=== PATIENT | male | born 1945 | race Caucasian/White ===

== ENCOUNTER 2017-08-14 04:51 | Inpatient (IN) | payer OTHER ==
[~2017-08-14] VITALS: Ht 182.9 cm; Wt 105.6 kg
[~2017-08-14 04:51] MED LIST: ACET-66 PO; AEC81 PO; ATOR20TA65 PO; DABI150C PO; DUTA.5 PO; GLIP1TAB6 PO; LISI-613 PO; METO25TA6 PO; NITR0.4T SL; OMEP20CA10 PO; TAMS0.4C32 PO
[2017-08-14 05:27] LABS: BASOPHILS % (AUTO) 0.6 % (0.0-5.0); EOSINOPHILS % (AUTO) 1.2 % (0.0-8.0); LYMPHOCYTES % (AUTO) 25.8 % (21.0-51.0); MEAN CORPUSCULAR HEMOGLOBIN 35.2 pg (27.0-33.0); MEAN CORPUSCULAR HGB CONC 36.2 g/dL (32.0-36.0); MEAN CORPUSCULAR VOLUME 97.3 fL (79-99); MONOCYTES % (AUTO) 11.1 % (3.0-13.0); NEUTROPHILS % (AUTO) 61.3 % (40.0-77.0); PLATELET COUNT (AUTO) 182 K/uL (130-400); RED BLOOD CELL COUNT(AUTO) 3.29 MIL/uL (4.50-6.20); RED CELL DISTRIBUTION WIDTH 14.6 % (11.0-15.5); WHITE BLOOD COUNT (AUTO) 6.5 K/uL (4.8-10.8)
[2017-08-14 05:37] LABS: INR 0.91 (0.85-1.15); PARTIAL THROMBOPLASTIN TIME 27.4 SEC (26.3-35.5); PROTHROMBIN TIME 9.6 SEC (9.6-11.6)
[2017-08-14 05:38] LABS: CREATININE 1.4 mg/dL (0.5-1.5); POTASSIUM 4.3 mmol/L (3.5-5.1)
[2017-08-14 05:42] LABS: ALBUMIN 2.8 g/dL (3.5-5.0); BILIRUBIN,TOTAL 0.4 mg/dL (0.2-1.0); TOTAL PROTEIN, SERUM 5.9 g/dL (6.0-8.3)
[2017-08-14 05:49] LABS: B-TYPE NATRIURETIC PEPTIDE 226 pg/mL (0-100)
[2017-08-14] MEDS ORDERED: ONDANSETRON HCL MDV 20ML 2 MG/ML VIAL ONE (06:17)
[2017-08-14] MEDS ORDERED: GLUCAGON 1MG KIT 1 MG ML ONE (06:17)
[2017-08-14] MEDS ORDERED: MAGNESIUM 2GM PREMIX 50ML 50 ML IV ONE (07:10)
[2017-08-14] MEDS ORDERED: DEXTROSE 50%-WATER 50 ML DISP.SYRIN IV PRN (07:15)
[2017-08-14] MEDS ORDERED: GLUCAGON 1MG KIT 1 MG ML IM PRN (07:15)
[2017-08-14] MEDS ORDERED: LIDOCAINE HCL-MPF 1% 2ML VIAL IVP PRN ×2 (07:15)
[2017-08-14] MEDS ORDERED: POTASSIUM CHLORIDE 10% ELIXIR 20 MEQ/15 ML UDCUP PO PRN ×2 (07:15)
[2017-08-14] MEDS ORDERED: POTASSIUM CHLORIDE 20MEQ/100ML 100 ML IV PRN ×2 (07:15)
[2017-08-14] MEDS ORDERED: ONDANSETRON HCL 4 MG/2 ML VIAL IV PRN (07:15)
[2017-08-14] MEDS ORDERED: POTASSIUM CHLORIDE 20 MEQ ERTAB PO PRN (07:15)
[2017-08-14] MEDS ORDERED: APIXABAN 5 MG TABLET PO SCH (10:00)
[2017-08-14 10:46] VITALS: BP 248/108
[2017-08-14] MEDS: AMLODIPINE BESYLATE 5 MG TAB PO SCH (10:57)
[2017-08-14] MEDS: LOSARTAN 100 MG TABLET PO SCH (10:57)
[2017-08-14] MEDS ORDERED: HYDRALAZINE HCL 20 MG/ML VIAL ONE (11:11)
[2017-08-14 11:21] LABS: CREATINE KINASE MB 2.1 ng/mL (0.5-3.6); MAGNESIUM 1.7 mg/dL (1.80-2.40); THYROID STIMULATING HORMONE 0.78 uIU/mL (0.36-3.74); TROPONIN I 0.09 ng/mL (0.00-0.06)
[2017-08-14 11:26] VITALS: BP 149/50
[2017-08-14 11:29] VITALS: BP 133/49
[2017-08-14] MEDS ORDERED: VALS320T16 PO (12:00)
[2017-08-14] MEDS ORDERED: HYDR25TA PO (12:00)
[2017-08-14] MEDS ORDERED: METO50TA18 PO (12:00)
[2017-08-14] MEDS ORDERED: AMLO10TA2 PO (12:00)
[2017-08-14] MEDS ORDERED: APIX5TAB PO (12:00)
[2017-08-14] MEDS: FUROSEMIDE 10 MG/ML 2ML VIAL IV SCH ×2 (12:41→17:44)
[2017-08-14] MEDS: MAGNESIUM 2GM PREMIX 50ML 50 ML IV PRN (12:42)
[2017-08-14] MEDS ORDERED: NITROGLYCERIN 0.4 MG SL TAB SL PRN (14:30)
[2017-08-14 16:34] VITALS: BP 150/56
[2017-08-14] MEDS: FAMOTIDINE/PF 20 MG/2 ML VIAL IV SCH ×2 (17:44→17:52)
[2017-08-14 19:45] VITALS: BP 146/56
[2017-08-14 20:04] LABS: APPEARANCE,URINE Clear (CLEAR); BILIRUBIN,URINE Negative (NEGATIVE); COLOR,URINE Yellow (YELLOW); GLUCOSE, URINE (UA) Negative (NEGATIVE); KETONES,URINE Negative (NEGATIVE); LEUKOCYTE ESTERASE ,URINE Negative (NEGATIVE); NITRATE,URINE Negative (NEGATIVE); OCCULT BLOOD,URINE Negative (NEGATIVE); PH,URINE 5.5 (5.0-8.0); PROTEIN,URINE 300 (NEGATIVE); UROBILINOGEN,URINE 0.2 mg/dL (0.2-1.0)
[2017-08-14 20:38] LABS: AMORPHOUS SEDIMENT,UR Trace /LPF (None Seen); BACTERIA,URINE Rare /HPF (None Seen); FINE GRANULAR CASTS,URINE 0-2 /LPF (None Seen); RBC,URINE None Seen /HPF (0-1); WBC,URINE None Seen /HPF (0-1)
[2017-08-14] MEDS ORDERED: ENOXAPARIN SODIUM 1 MG/KG SQ SCH (21:00)
[2017-08-14] MEDS: TAMSULOSIN HCL 0.4 MG CAP.ER.24H PO SCH (22:52)
[2017-08-14] MEDS: ENOXAPARIN SODIUM 120 MG/0.8ML SQ SCH (22:52)
[2017-08-14] MEDS: ATORVASTATIN CALCIUM 20 MG TABLET PO SCH (22:52)
[2017-08-14 23:39] VITALS: BP 160/64
[2017-08-15 04:00] VITALS: BP 158/46
[2017-08-15 05:05] LABS: HEMATOCRIT 33.5 % (42-54); MEAN CORPUSCULAR HEMOGLOBIN 34.4 pg (27.0-33.0); MEAN CORPUSCULAR HGB CONC 35.1 g/dL (32.0-36.0); MEAN CORPUSCULAR VOLUME 98.1 fL (79-99); NUCLEATED RED BLOOD CELLS 0.1 % (0.0-0.19); PLATELET COUNT (AUTO) 163 K/uL (130-400); RED BLOOD CELL COUNT(AUTO) 3.42 MIL/uL (4.50-6.20); RED CELL DISTRIBUTION WIDTH 14.6 % (11.0-15.5); WHITE BLOOD COUNT (AUTO) 7.6 K/uL (4.8-10.8)
[2017-08-15 05:16] LABS: INR 0.95 (0.85-1.15); PARTIAL THROMBOPLASTIN TIME 34.1 SEC (26.3-35.5)
[2017-08-15 05:30] LABS: CREATININE 1.2 mg/dL (0.5-1.5); MAGNESIUM 1.8 mg/dL (1.80-2.40); POTASSIUM 3.8 mmol/L (3.5-5.1); THYROID STIMULATING HORMONE 0.76 uIU/mL (0.36-3.74)
[2017-08-15] MEDS: MAGNESIUM 2GM PREMIX 50ML 50 ML IV PRN (05:58)
[2017-08-15 08:00] VITALS: BP 145/56
[2017-08-15] MEDS ORDERED: NON-FORMULARY MEDICATION 1 EACH (Valsartan 320 MG) PO SCH (09:00)
[2017-08-15] MEDS ORDERED: NON-FORMULARY MEDICATION 1 EACH (Amlodipine Besylate 10 MG) PO SCH (09:00)
[2017-08-15] MEDS: FUROSEMIDE 10 MG/ML 2ML VIAL IV SCH ×2 (09:47→17:11)
[2017-08-15] MEDS: FAMOTIDINE/PF 20 MG/2 ML VIAL IV SCH ×2 (09:47→20:21)
[2017-08-15] MEDS: ASPIRIN 81 MG EC TAB PO SCH (09:48)
[2017-08-15] MEDS: AMLODIPINE BESYLATE 5 MG TAB PO SCH (09:48)
[2017-08-15] MEDS: HYDROCHLOROTHIAZIDE 25 MG TABLET PO SCH (09:48)
[2017-08-15] MEDS: PANTOPRAZOLE SODIUM 40 MG TABLET.DR PO SCH (09:48)
[2017-08-15] MEDS: LOSARTAN 100 MG TABLET PO SCH (09:48)
[2017-08-15] MEDS: ENOXAPARIN SODIUM 120 MG/0.8ML SQ SCH ×2 (09:49→20:23)
[2017-08-15 11:53] VITALS: BP 173/55
[2017-08-15 15:41] VITALS: BP 192/69
[2017-08-15 19:50] VITALS: BP_SYST 161; BP_SYST 194; BP_DIAS 42; BP_DIAS 70
[2017-08-15] MEDS: ATORVASTATIN CALCIUM 20 MG TABLET PO SCH (20:21)
[2017-08-15] MEDS: TAMSULOSIN HCL 0.4 MG CAP.ER.24H PO SCH (20:21)
[2017-08-15] MEDS: HYDRALAZINE HCL 20 MG/ML VIAL IV PRN (20:21)
[2017-08-15 23:15] VITALS: BP 160/60
[2017-08-16] MEDS: HYDRALAZINE HCL 20 MG/ML VIAL IV PRN ×4 (03:19→20:57)
[2017-08-16 03:59] LABS: HEMATOCRIT 30.4 % (42-54); MEAN CORPUSCULAR HEMOGLOBIN 35.2 pg (27.0-33.0); MEAN CORPUSCULAR VOLUME 97.9 fL (79-99); PLATELET COUNT (AUTO) 161 K/uL (130-400); RED BLOOD CELL COUNT(AUTO) 3.11 MIL/uL (4.50-6.20); RED CELL DISTRIBUTION WIDTH 14.7 % (11.0-15.5); WHITE BLOOD COUNT (AUTO) 7.4 K/uL (4.8-10.8)
[2017-08-16 04:06] VITALS: BP 172/58
[2017-08-16 04:07] LABS: CREATININE 1.4 mg/dL (0.5-1.5); POTASSIUM 3.6 mmol/L (3.5-5.1)
[2017-08-16 07:32] VITALS: BP 151/42
[2017-08-16] MEDS: LOSARTAN 100 MG TABLET PO SCH (10:23)
[2017-08-16] MEDS: ENOXAPARIN SODIUM 120 MG/0.8ML SQ SCH (10:23)
[2017-08-16] MEDS: AMLODIPINE BESYLATE 5 MG TAB PO SCH (10:23)
[2017-08-16] MEDS: PANTOPRAZOLE SODIUM 40 MG TABLET.DR PO SCH (10:23)
[2017-08-16] MEDS: HYDROCHLOROTHIAZIDE 25 MG TABLET PO SCH (10:23)
[2017-08-16] MEDS: ASPIRIN 81 MG EC TAB PO SCH (10:23)
[2017-08-16] MEDS: FUROSEMIDE 10 MG/ML 2ML VIAL IV SCH ×2 (10:24→18:05)
[2017-08-16] MEDS: FAMOTIDINE/PF 20 MG/2 ML VIAL IV SCH ×2 (10:24→20:46)
[2017-08-16 11:18] VITALS: BP 198/85
[2017-08-16] MEDS: POTASSIUM CHLORIDE 20 MEQ ERTAB PO PRN ×2 (11:54→14:47)
[2017-08-16 15:39] VITALS: BP 164/48
[2017-08-16] MEDS ORDERED: GUAIFENESIN-DM 200/20 MG 10 ML PO PRN (19:15)
[2017-08-16 19:28] VITALS: BP 170/57
[2017-08-16] MEDS: TAMSULOSIN HCL 0.4 MG CAP.ER.24H PO SCH (20:46)
[2017-08-16] MEDS: ATORVASTATIN CALCIUM 20 MG TABLET PO SCH (20:46)
[2017-08-16] MEDS ORDERED: LORAZEPAM 2 MG/ML 1 ML VIAL IVP PRN (21:30)
[2017-08-16] MEDS ORDERED: CHLORDIAZEPOXIDE HCL 25 MG CAP PO ONE (22:00)
[2017-08-16 23:30] VITALS: BP 141/38
[2017-08-17] VITALS (11 sets, daily range): BP systolic 126–186; BP diastolic 41–62
[2017-08-17 04:10] LABS: CREATININE 1.4 mg/dL (0.5-1.5); POTASSIUM 3.7 mmol/L (3.5-5.1)
[2017-08-17] MEDS ORDERED: CEFAZOLIN 1GM / D5W 50ML 150 ML ONE (07:22)
[2017-08-17] MEDS ORDERED: ISOVUE-370 50ML VIAL IV ONE (07:22)
[2017-08-17] MEDS ORDERED: LIDOCAINE HCL 1% MDV 50ML VIAL ONE ×2 (07:23→08:37)
[2017-08-17] MEDS ORDERED: BUPIVACAINE/PF 0.25% 30ML VIAL IJ ONE ×4 (07:23→08:37)
[2017-08-17] MEDS ORDERED: MORPHINE SULFATE 4 MG/1ML SYG ONE ×2 (08:05→09:02)
[2017-08-17] MEDS ORDERED: CEFAZOLIN 1GM / D5W 50ML 50 ML ONE (08:37)
[2017-08-17] MEDS ORDERED: ACETAMINOPHEN 325 MG TAB PO PRN (08:45)
[2017-08-17] MEDS: LOSARTAN 100 MG TABLET PO SCH (12:31)
[2017-08-17] MEDS: AMLODIPINE BESYLATE 5 MG TAB PO SCH (12:31)
[2017-08-17] MEDS: HYDROCHLOROTHIAZIDE 25 MG TABLET PO SCH (12:31)
[2017-08-17] MEDS: PANTOPRAZOLE SODIUM 40 MG TABLET.DR PO SCH (12:31)
[2017-08-17] MEDS: FUROSEMIDE 10 MG/ML 2ML VIAL IV SCH ×2 (12:32→17:34)
[2017-08-17] MEDS: ASPIRIN 81 MG EC TAB PO SCH (12:32)
[2017-08-17] MEDS: FAMOTIDINE/PF 20 MG/2 ML VIAL IV SCH ×2 (12:32→21:24)
[2017-08-17] MEDS: CHLORDIAZEPOXIDE HCL 25 MG CAP PO SCH ×2 (14:35→21:24)
[2017-08-17] MEDS: CEFAZOLIN SODIUM 1 GM VIAL IVP SCH ×2 (15:23→22:56)
[2017-08-17] MEDS: POTASSIUM CHLORIDE 20 MEQ ERTAB PO PRN ×2 (15:39→17:33)
[2017-08-17] MEDS ORDERED: CEFAZOLIN 1GM / D5W 50ML 50 ML IV SCH (15:45)
[2017-08-17] MEDS ORDERED: ATORVASTATIN CALCIUM 40 MG TABLET PO SCH (21:00)
[2017-08-17] MEDS: TAMSULOSIN HCL 0.4 MG CAP.ER.24H PO SCH (21:24)
[2017-08-18 04:00] VITALS: BP 148/61
[2017-08-18] MEDS: CHLORDIAZEPOXIDE HCL 25 MG CAP PO SCH (06:10)
[2017-08-18 07:36] VITALS: BP 131/63
[2017-08-18] MEDS: LOSARTAN 100 MG TABLET PO SCH (09:18)
[2017-08-18] MEDS: ASPIRIN 81 MG EC TAB PO SCH (09:18)
[2017-08-18] MEDS: HYDROCHLOROTHIAZIDE 25 MG TABLET PO SCH (09:18)
[2017-08-18] MEDS: PANTOPRAZOLE SODIUM 40 MG TABLET.DR PO SCH (09:18)
[2017-08-18] MEDS: AMLODIPINE BESYLATE 5 MG TAB PO SCH (09:18)
[2017-08-18] MEDS: FUROSEMIDE 10 MG/ML 2ML VIAL IV SCH (09:19)
[2017-08-18 10:49] VITALS: BP 141/61
== END 2017-08-18 13:50 | disposition home or self-care (01) | DRG 242 ==
LOC: EDH 04:51 → OBSVTOIN 06:20 → EDHIP 06:20 → 4CH 09:20 → 2BH 08-15 15:16
PROVIDERS: ADMIT Family Medicine; ATTEND Family Medicine
PROC: 0JH606Z Insertion of Pacemaker, Dual Chamber into Chest Subcutaneous Tissue and Fascia, Open Approach (ICD-10-PCS; principal; 2017-08-17)
PROC: 02H63JZ Insertion of Pacemaker Lead into Right Atrium, Percutaneous Approach (ICD-10-PCS; 2017-08-17)
PROC: 02HK3JZ Insertion of Pacemaker Lead into Right Ventricle, Percutaneous Approach (ICD-10-PCS; 2017-08-17)
DX: I49.5 Sick sinus syndrome (principal); I50.33 Acute on chronic diastolic (congestive) heart failure; I44.2 Atrioventricular block, complete; D68.59 Other primary thrombophilia; E83.42 Hypomagnesemia; E11.9 Type 2 diabetes mellitus without complications; Z95.1 Presence of aortocoronary bypass graft; I48.0 Paroxysmal atrial fibrillation; I25.10 Atherosclerotic heart disease of native coronary artery without angina pectoris; F10.10 Alcohol abuse, uncomplicated; E78.5 Hyperlipidemia, unspecified; I11.0 Hypertensive heart disease with heart failure; E66.9 Obesity, unspecified; Z68.31 Body mass index [BMI] 31.0-31.9, adult; I48.2 Chronic atrial fibrillation; K21.9 Gastro-esophageal reflux disease without esophagitis; N40.0 Benign prostatic hyperplasia without lower urinary tract symptoms; Z79.01 Long term (current) use of anticoagulants; Z79.82 Long term (current) use of aspirin; Z79.899 Other long term (current) drug therapy; Z95.0 Presence of cardiac pacemaker; Z96.641 Presence of right artificial hip joint; Z90.49 Acquired absence of other specified parts of digestive tract
CPT/HCPCS: 36415; 71045; 80053; 81001; 82550; 82553; 83605; 83690; 83735; 83874; 83880; 84443; 84484; 85025; 85378; 85610; 85730; 93005; J0360; J1610; J1650; J1940; J3475; J3490; 33208; 80048; 82948; 84100; 85027; 93306; 99291; A4218; C1779; C1785; J0690; J2270; Q9967

== ENCOUNTER 2017-09-28 13:00 | Inpatient (IN) | payer OTHER ==
[~2017-09-28] VITALS: Ht 180.3 cm; Wt 108.9 kg
[~2017-09-28 13:00] MED LIST changes: +AMLO10TA2 PO; +APIX5TAB PO; -DABI150C PO; -DUTA.5 PO; -GLIP1TAB6 PO; +HYDR25TA PO; -LISI-613 PO; -METO25TA6 PO; +METO50TA18 PO; +VALS320T16 PO
[2017-09-28 13:25] VITALS: BP 146/77
[2017-09-28 13:30] LABS: HEMATOCRIT 35.6 % (42-54); LYMPHOCYTES % (AUTO) 34.2 % (21.0-51.0); MEAN CORPUSCULAR HEMOGLOBIN 34.5 pg (27.0-33.0); MEAN CORPUSCULAR HGB CONC 35.4 g/dL (32.0-36.0); MEAN CORPUSCULAR VOLUME 97.4 fL (79-99); MONOCYTES % (AUTO) 9.8 % (3.0-13.0); PLATELET COUNT (AUTO) 223 K/uL (130-400); RED BLOOD CELL COUNT(AUTO) 3.65 MIL/uL (4.50-6.20); RED CELL DISTRIBUTION WIDTH 15.6 % (11.0-15.5); WHITE BLOOD COUNT (AUTO) 4.9 K/uL (4.8-10.8)
[2017-09-28 13:32] LABS: APPEARANCE,URINE Clear (CLEAR); BILIRUBIN,URINE Negative (NEGATIVE); COLOR,URINE Yellow (YELLOW); GLUCOSE, URINE (UA) Negative (NEGATIVE); KETONES,URINE Negative (NEGATIVE); LEUKOCYTE ESTERASE ,URINE Negative (NEGATIVE); NITRATE,URINE Negative (NEGATIVE); OCCULT BLOOD,URINE Negative (NEGATIVE); PH,URINE 6.5 (5.0-8.0); PROTEIN,URINE 300 (NEGATIVE); UROBILINOGEN,URINE 0.2 mg/dL (0.2-1.0)
[2017-09-28 13:45] LABS: INR 0.9 (0.85-1.15); PARTIAL THROMBOPLASTIN TIME 28.2 SEC (26.3-35.5); PROTHROMBIN TIME 9.5 SEC (9.6-11.6)
[2017-09-28 13:47] LABS: BACTERIA,URINE Rare /HPF (None Seen); SQUAMOUS EPITHELIAL CELL,UR Rare /HPF (0-2); WBC,URINE 0-1 /HPF (0-1)
[2017-09-28 13:52] LABS: CREATININE 1.1 mg/dL (0.5-1.5); POTASSIUM 3.7 mmol/L (3.5-5.1)
[2017-10-01] VITALS (20 sets, daily range): BP systolic 104–151; BP diastolic 45–75
[2017-10-01] MEDS: CEFAZOLIN SODIUM 1 GM VIAL IVP SCH ×3 (05:00→21:01)
[2017-10-01] MEDS ORDERED: SODIUM CHLORIDE 0.9% 1000ML 1,000 ML IV ONE (07:09)
[2017-10-01] MEDS ORDERED: GLUC1CAP PO (07:33)
[2017-10-01] MEDS ORDERED: CHOL200013 PO (07:34)
[2017-10-01] MEDS ORDERED: APIX5TAB PO (07:36)
[2017-10-01] MEDS ORDERED: FERR-82 PO (07:55)
[2017-10-01] MEDS ORDERED: ACETAMINOPHEN EXTRA STRENGTH 500 MG TABLET ONE (08:33)
[2017-10-01] MEDS ORDERED: CELECOXIB 200 MG CAP ONE (08:33)
[2017-10-01] MEDS ORDERED: KETOROLAC TROMETHAMINE 15MG/ML ONE (08:33)
[2017-10-01] MEDS ORDERED: OXYCODONE HCL 10 MG TAB.SR.12H PO ONE (08:34)
[2017-10-01] MEDS ORDERED: CEFAZOLIN SODIUM 1 GM VIAL ONE (08:48)
[2017-10-01] MEDS ORDERED: TRANEXAMIC ACID 1000MG/10ML IV ONE (08:49)
[2017-10-01] MEDS ORDERED: ROPIVACAINE 0.5% 5MG/ML 30ML IJ ONE (09:44)
[2017-10-01] MEDS ORDERED: PROPOFOL 10 MG/ML 20ML VIAL IV ONE (09:45)
[2017-10-01] MEDS ORDERED: FENTANYL CITRATE PF 50 MCG/1 ML 2ML VIAL ONE ×3 (09:45→14:13)
[2017-10-01] MEDS ORDERED: MIDAZOLAM HCL 1 MG/ML 2ML VIAL ONE (09:45)
[2017-10-01] MEDS ORDERED: ROCURONIUM BROMIDE 10MG/1ML 5ML VL ONE ×3 (10:52→13:15)
[2017-10-01] MEDS ORDERED: PHENYLEPHRINE HCL 10 MG/ML 1ML VIAL IV ONE (13:15)
[2017-10-01] MEDS ORDERED: NEOSTIGMINE 5MG/5ML SYR IV ONE (13:15)
[2017-10-01] MEDS ORDERED: GLYCOPYRROLATE 1 MG/5 ML SYRINGE ONE (13:15)
[2017-10-01] MEDS ORDERED: LIDOCAINE PF 2% 5ML ABBOJECT ONE (13:15)
[2017-10-01] MEDS ORDERED: ONDANSETRON HCL 4 MG/2 ML VIAL ONE (13:15)
[2017-10-01] MEDS ORDERED: DiphenhydrAMINE HCL 50 MG/ML VIAL IVP PRN (14:15)
[2017-10-01] MEDS ORDERED: KETOROLAC TROMETHAMINE 15MG/ML IV PRN (14:15)
[2017-10-01] MEDS ORDERED: FERROUS FUMARATE 324 MG TABLET PO PRN (14:15)
[2017-10-01] MEDS ORDERED: ONDANSETRON HCL 4 MG/2 ML VIAL IVP PRN (14:15)
[2017-10-01] MEDS: ACETAMINOPHEN EXTRA STRENGTH 500 MG TABLET PO SCH ×2 (14:15→22:35)
[2017-10-01] MEDS ORDERED: OXYCODONE HCL 5 MG TAB PO PRN ×2 (14:15)
[2017-10-01] MEDS ORDERED: CALCIUM CARBONATE 500 MG TABLET PO PRN (14:15)
[2017-10-01] MEDS ORDERED: TEMAZEPAM 15 MG CAPSULE PO PRN (14:15)
[2017-10-01] MEDS ORDERED: POTASSIUM CHLORIDE 20 MEQ ERTAB PO PRN (14:15)
[2017-10-01] MEDS ORDERED: LIDOCAINE HCL-MPF 1% 2ML VIAL IVP PRN (14:15)
[2017-10-01] MEDS ORDERED: POTASSIUM CHLORIDE 10% ELIXIR 20 MEQ/15 ML UDCUP PO PRN (14:15)
[2017-10-01] MEDS ORDERED: POTASSIUM CHLORIDE 20MEQ/100ML 100 ML IV PRN (14:15)
[2017-10-01] MEDS: SODIUM CHLORIDE 0.9% 1000ML 1,000 ML IV SCH (15:55)
[2017-10-01] MEDS: INSULIN HUMULIN R 100 UNIT/ML 3ML SQ SCH ×2 (16:30→21:00)
[2017-10-01] MEDS ORDERED: CEFAZOLIN 3GM /D5W 100ML 100 ML IV SCH (19:15)
[2017-10-01] MEDS: FAMOTIDINE 20MG TAB 20 MG TAB PO SCH (21:01)
[2017-10-01] MEDS: PREGABALIN 25 MG CAP PO SCH (21:02)
[2017-10-01] MEDS: ATORVASTATIN CALCIUM 20 MG TABLET PO SCH (21:02)
[2017-10-01] MEDS: CELECOXIB 200 MG CAP PO SCH (21:02)
[2017-10-01] MEDS: METOPROLOL TARTRATE 50 MG TAB PO SCH (21:02)
[2017-10-01] MEDS: TAMSULOSIN HCL 0.4 MG CAP.ER.24H PO SCH (21:02)
[2017-10-02] MEDS: SODIUM CHLORIDE 0.9% 1000ML 1,000 ML IV SCH ×2 (00:04→10:01)
[2017-10-02 00:50] VITALS: BP 138/64
[2017-10-02] MEDS: CEFAZOLIN SODIUM 1 GM VIAL IVP SCH (03:10)
[2017-10-02 04:42] VITALS: BP 114/70
[2017-10-02 05:04] LABS: HEMATOCRIT 25.4 % (42-54); MEAN CORPUSCULAR HGB CONC 36.4 g/dL (32.0-36.0); MEAN CORPUSCULAR VOLUME 98.8 fL (79-99); PLATELET COUNT (AUTO) 161 K/uL (130-400); RED BLOOD CELL COUNT(AUTO) 2.57 MIL/uL (4.50-6.20); RED CELL DISTRIBUTION WIDTH 15.3 % (11.0-15.5); WHITE BLOOD COUNT (AUTO) 5.3 K/uL (4.8-10.8)
[2017-10-02 05:17] LABS: CREATININE 1.4 mg/dL (0.5-1.5); POTASSIUM 3.9 mmol/L (3.5-5.1)
[2017-10-02] MEDS: INSULIN HUMULIN R 100 UNIT/ML 3ML SQ SCH ×4 (05:49→21:00)
[2017-10-02] MEDS: ACETAMINOPHEN EXTRA STRENGTH 500 MG TABLET PO SCH ×3 (06:05→22:31)
[2017-10-02 07:35] VITALS: BP 135/59
[2017-10-02] MEDS: Cholecalciferol (Vitamin D3) (Vitamin D3) 2,000 UNIT PO SCH (09:00)
[2017-10-02] MEDS: Valsartan 320 MG PO SCH (09:00)
[2017-10-02] MEDS ORDERED: TAMSULOSIN HCL 0.4 MG CAP.ER.24H PO SCH (09:00)
[2017-10-02] MEDS ORDERED: NON-FORMULARY MEDICATION 1 EACH (Ferrous Sulfate (Iron) 325 MG) PO SCH (09:00)
[2017-10-02] MEDS: FAMOTIDINE 20MG TAB 20 MG TAB PO SCH ×2 (09:40→19:59)
[2017-10-02] MEDS: CELECOXIB 200 MG CAP PO SCH ×2 (09:40→19:58)
[2017-10-02] MEDS: PREGABALIN 25 MG CAP PO SCH ×2 (09:40→19:58)
[2017-10-02] MEDS: ASPIRIN 81 MG EC TAB PO SCH (09:40)
[2017-10-02] MEDS: PANTOPRAZOLE SODIUM 40 MG TABLET.DR PO SCH (09:41)
[2017-10-02] MEDS: HYDROCHLOROTHIAZIDE 25 MG TABLET PO SCH (09:41)
[2017-10-02] MEDS: METOPROLOL TARTRATE 50 MG TAB PO SCH ×2 (09:41→19:58)
[2017-10-02] MEDS: AMLODIPINE BESYLATE 5 MG TAB PO SCH (09:41)
[2017-10-02] MEDS: POLYETHYLENE GLYCOL 3350 17 GM POWD.PACK PO SCH (09:41)
[2017-10-02 11:21] VITALS: BP 125/50
[2017-10-02 16:30] VITALS: BP 135/58
[2017-10-02 19:38] VITALS: BP 138/60
[2017-10-02] MEDS: APIXABAN 5 MG TABLET PO SCH (19:58)
[2017-10-02] MEDS: ATORVASTATIN CALCIUM 20 MG TABLET PO SCH (19:59)
[2017-10-02] MEDS: TAMSULOSIN HCL 0.4 MG CAP.ER.24H PO SCH (20:02)
[2017-10-03] VITALS (7 sets, daily range): BP systolic 118–150; BP diastolic 60–79
[2017-10-03] MEDS: ACETAMINOPHEN EXTRA STRENGTH 500 MG TABLET PO SCH ×2 (05:46→21:31)
[2017-10-03] MEDS: INSULIN HUMULIN R 100 UNIT/ML 3ML SQ SCH ×4 (05:46→21:00)
[2017-10-03] MEDS: APIXABAN 5 MG TABLET PO SCH ×2 (08:47→21:24)
[2017-10-03] MEDS: HYDROCHLOROTHIAZIDE 25 MG TABLET PO SCH (08:47)
[2017-10-03] MEDS: ASPIRIN 81 MG EC TAB PO SCH (08:48)
[2017-10-03] MEDS: PANTOPRAZOLE SODIUM 40 MG TABLET.DR PO SCH (08:48)
[2017-10-03] MEDS: CELECOXIB 200 MG CAP PO SCH ×2 (08:48→21:23)
[2017-10-03] MEDS: PREGABALIN 25 MG CAP PO SCH (08:49)
[2017-10-03] MEDS: METOPROLOL TARTRATE 50 MG TAB PO SCH ×2 (08:49→21:23)
[2017-10-03] MEDS: AMLODIPINE BESYLATE 5 MG TAB PO SCH (08:49)
[2017-10-03] MEDS: FAMOTIDINE 20MG TAB 20 MG TAB PO SCH ×2 (08:49→21:23)
[2017-10-03] MEDS: POLYETHYLENE GLYCOL 3350 17 GM POWD.PACK PO SCH (08:50)
[2017-10-03] MEDS: Cholecalciferol (Vitamin D3) (Vitamin D3) 2,000 UNIT PO SCH (08:50)
[2017-10-03] MEDS: Valsartan 320 MG PO SCH (08:50)
[2017-10-03 13:21] LABS: HEMATOCRIT 25.4 % (42-54)
[2017-10-03] MEDS: TAMSULOSIN HCL 0.4 MG CAP.ER.24H PO SCH (21:23)
[2017-10-03] MEDS: ATORVASTATIN CALCIUM 20 MG TABLET PO SCH (21:24)
[2017-10-04 04:56] VITALS: BP 140/73
[2017-10-04] MEDS: INSULIN HUMULIN R 100 UNIT/ML 3ML SQ SCH ×2 (06:26→11:30)
[2017-10-04] MEDS: ACETAMINOPHEN EXTRA STRENGTH 500 MG TABLET PO SCH ×2 (06:34→15:41)
[2017-10-04 07:29] VITALS: BP 129/52
[2017-10-04] MEDS: Cholecalciferol (Vitamin D3) (Vitamin D3) 2,000 UNIT PO SCH (09:00)
[2017-10-04] MEDS: Valsartan 320 MG PO SCH (09:00)
[2017-10-04] MEDS: APIXABAN 5 MG TABLET PO SCH (09:05)
[2017-10-04] MEDS: METOPROLOL TARTRATE 50 MG TAB PO SCH (09:05)
[2017-10-04] MEDS: AMLODIPINE BESYLATE 5 MG TAB PO SCH (09:05)
[2017-10-04] MEDS: HYDROCHLOROTHIAZIDE 25 MG TABLET PO SCH (09:05)
[2017-10-04] MEDS: PANTOPRAZOLE SODIUM 40 MG TABLET.DR PO SCH (09:05)
[2017-10-04] MEDS: CELECOXIB 200 MG CAP PO SCH (09:06)
[2017-10-04] MEDS: FAMOTIDINE 20MG TAB 20 MG TAB PO SCH (09:06)
[2017-10-04] MEDS: POLYETHYLENE GLYCOL 3350 17 GM POWD.PACK PO SCH (09:06)
[2017-10-04] MEDS: ASPIRIN 81 MG EC TAB PO SCH (09:06)
[2017-10-04 12:10] VITALS: BP 130/58
[2017-10-04] MEDS ORDERED: HYDR-309 PO (13:02)
[2017-10-04] MEDS ORDERED: BISACODYL 10 MG SUPP.RECT RC PRN (14:15)
[2017-10-04 17:05] VITALS: BP 149/65
== END 2017-10-04 17:55 | DRG 470 ==
LOC: EDSTATUS 13:00 → DAHIP 10-01 06:57 → 4AH 10-01 14:14
PROVIDERS: ADMIT Orthopaedic Surgery; ATTEND Orthopaedic Surgery
PROC: 0SRD0JZ Replacement of Left Knee Joint with Synthetic Substitute, Open Approach (ICD-10-PCS; principal; 2017-10-01 11:29)
DX: M17.12 Unilateral primary osteoarthritis, left knee (principal); I10 Essential (primary) hypertension; E11.9 Type 2 diabetes mellitus without complications; E78.5 Hyperlipidemia, unspecified; N40.0 Benign prostatic hyperplasia without lower urinary tract symptoms; I25.10 Atherosclerotic heart disease of native coronary artery without angina pectoris; G89.29 Other chronic pain; Z96.641 Presence of right artificial hip joint; Z95.1 Presence of aortocoronary bypass graft; Z98.41 Cataract extraction status, right eye; Z95.0 Presence of cardiac pacemaker; Z83.3 Family history of diabetes mellitus; Z82.49 Family history of ischemic heart disease and other diseases of the circulatory system; Z82.61 Family history of arthritis; Z80.9 Family history of malignant neoplasm, unspecified
CPT/HCPCS: 36415; 73503; 80048; 81001; 82948; 85014; 85018; 85025; 85027; 85610; 85730; 88304; 88311; 96374; 97039; A4218; A4344; C1776; J0690; J1885; J2001; J2250; J2370; J2405; J2704; J2710; J2795; J3010; J3490; J7030

== ENCOUNTER 2017-12-26 21:30 | Emergency (ER) | payer OTHER ==
[~2017-12-26 21:30] MED LIST changes: -AMLO10TA2 PO; +AMLO10TA6 PO; +CHOL200013 PO; +FERR-82 PO; +GLUC1CAP PO; +HYDR-309 PO; -NITR0.4T SL
[2017-12-26] MEDS ORDERED: OXYMETAZOLINE HCL SPRAY 15 ML BOTTLE ONE (22:45)
[2017-12-26 22:50] LABS: BASOPHILS % (AUTO) 0.6 % (0.0-5.0); EOSINOPHILS % (AUTO) 1.9 % (0.0-8.0); HEMATOCRIT 27.1 % (42-54); LYMPHOCYTES % (AUTO) 20.5 % (21.0-51.0); MEAN CORPUSCULAR HEMOGLOBIN 30.4 pg (27.0-33.0); MEAN CORPUSCULAR HGB CONC 33.3 g/dL (32.0-36.0); MEAN CORPUSCULAR VOLUME 91.4 fL (79-99); MONOCYTES % (AUTO) 9.4 % (3.0-13.0); NEUTROPHILS % (AUTO) 67.6 % (40.0-77.0); PLATELET COUNT (AUTO) 223 K/uL (130-400); RED BLOOD CELL COUNT(AUTO) 2.97 MIL/uL (4.50-6.20); RED CELL DISTRIBUTION WIDTH 18.6 % (11.0-15.5); WHITE BLOOD COUNT (AUTO) 7.6 K/uL (4.8-10.8)
[2017-12-26 22:57] LABS: CREATININE 0.9 mg/dL (0.5-1.5)
[2017-12-26 23:02] LABS: BILIRUBIN,TOTAL 0.3 mg/dL (0.2-1.0); TOTAL PROTEIN, SERUM 6.5 g/dL (6.0-8.3)
[2017-12-26 23:13] LABS: INR 0.91 (0.85-1.15); PROTHROMBIN TIME 9.6 SEC (9.6-11.6)
[2017-12-26 23:52] LABS: B-TYPE NATRIURETIC PEPTIDE 72 pg/mL (0-100)
== END 2017-12-27 00:24 | disposition home or self-care (01) ==
LOC: EDH 21:30
DX: S02.2XXA Fracture of nasal bones, initial encounter for closed fracture (principal); R04.0 Epistaxis; R60.0 Localized edema; I10 Essential (primary) hypertension; E78.5 Hyperlipidemia, unspecified; E11.9 Type 2 diabetes mellitus without complications; I25.810 Atherosclerosis of coronary artery bypass graft(s) without angina pectoris; Z95.1 Presence of aortocoronary bypass graft; W01.0XXA Fall on same level from slipping, tripping and stumbling without subsequent striking against object, initial encounter; Y93.89 Activity, other specified; Y92.89 Other specified places as the place of occurrence of the external cause; Y99.8 Other external cause status
CPT/HCPCS: 36415; 70160; 70450; 71045; 80053; 83880; 85025; 85610; 85730; 93005

== ENCOUNTER 2018-01-09 12:18 | Emergency (ER) | payer OTHER ==
[~2018-01-09 12:18] MED LIST changes: -HYDR-309 PO; +HYDR-4457 PO
[2018-01-09 12:40] LABS: BASOPHILS % (AUTO) 0.9 % (0.0-5.0); EOSINOPHILS % (AUTO) 2.6 % (0.0-8.0); HEMATOCRIT 24.9 % (42-54); LYMPHOCYTES % (AUTO) 24.1 % (21.0-51.0); MEAN CORPUSCULAR HEMOGLOBIN 32.8 pg (27.0-33.0); MEAN CORPUSCULAR HGB CONC 32.9 g/dL (32.0-36.0); MEAN CORPUSCULAR VOLUME 99.9 fL (79-99); NEUTROPHILS % (AUTO) 63.4 % (40.0-77.0); NUCLEATED RED BLOOD CELLS 0.1 % (0.0-0.19); PLATELET COUNT (AUTO) 229 K/uL (130-400); RED BLOOD CELL COUNT(AUTO) 2.49 MIL/uL (4.50-6.20); RED CELL DISTRIBUTION WIDTH 22.4 % (11.0-15.5); WHITE BLOOD COUNT (AUTO) 5.3 K/uL (4.8-10.8)
[2018-01-09 12:47] LABS: CREATININE 1.1 mg/dL (0.5-1.5); POTASSIUM 3.6 mmol/L (3.5-5.1)
[2018-01-09 12:51] LABS: ALBUMIN 3.1 g/dL (3.5-5.0); BILIRUBIN,TOTAL 0.2 mg/dL (0.2-1.0)
[2018-01-09] MEDS ORDERED: ONDANSETRON HCL 4 MG/2 ML VIAL ONE (13:24)
== END 2018-01-09 14:27 | disposition home or self-care (01) ==
LOC: EDH 12:18
DX: R11.2 Nausea with vomiting, unspecified (principal); D64.9 Anemia, unspecified; R60.0 Localized edema; E11.9 Type 2 diabetes mellitus without complications; I10 Essential (primary) hypertension; I25.10 Atherosclerotic heart disease of native coronary artery without angina pectoris; E78.5 Hyperlipidemia, unspecified; Z88.6 Allergy status to analgesic agent; Z95.1 Presence of aortocoronary bypass graft
CPT/HCPCS: 36415; 80053; 84484; 85025; 96374; 99284; J2405

== ENCOUNTER 2019-08-22 18:05 | Emergency (ER) | payer OTHER ==
[~2019-08-22 18:05] MED LIST changes: +AMLO-258 PO; -AMLO10TA6 PO; -OMEP20CA10 PO; +OMEP20CA12 PO
[2019-08-22 18:47] LABS: BASOPHILS % (AUTO) 0.5 % (0.0-5.0); EOSINOPHILS % (AUTO) 0.2 % (0.0-8.0); HEMATOCRIT 35.5 % (42-54); LYMPHOCYTES % (AUTO) 9.5 % (21.0-51.0); MEAN CORPUSCULAR HEMOGLOBIN 34.2 pg (27.0-33.0); MEAN CORPUSCULAR HGB CONC 33.2 g/dL (32.0-36.0); MEAN CORPUSCULAR VOLUME 102.9 fL (79-99); PLATELET COUNT (AUTO) 138 K/uL (130-400); RED BLOOD CELL COUNT(AUTO) 3.45 MIL/uL (4.50-6.20); RED CELL DISTRIBUTION WIDTH 14.6 % (11.0-15.5); WHITE BLOOD COUNT (AUTO) 6.1 K/uL (4.8-10.8)
[2019-08-22 18:57] LABS: CREATININE 1.4 mg/dL (0.5-1.5); POTASSIUM 4.5 mmol/L (3.5-5.1)
[2019-08-22 18:59] LABS: INR 0.9 (0.85-1.15); PARTIAL THROMBOPLASTIN TIME 23.1 SEC (26.3-35.5); PROTHROMBIN TIME 9.8 SEC (9.6-11.6)
[2019-08-22 19:02] LABS: ALBUMIN 3.5 g/dL (3.5-5.0); BILIRUBIN,TOTAL 0.4 mg/dL (0.2-1.0); TOTAL PROTEIN, SERUM 6.7 g/dL (6.0-8.3)
[2019-08-22] MEDS ORDERED: TETANUS/DIPHTHERIA TOXOID [ADULT] 0.5 ML VIAL IM ONE (20:56)
== END 2019-08-22 22:31 | disposition home or self-care (01) ==
LOC: EDH 18:05
DX: S01.21XA Laceration without foreign body of nose, initial encounter (principal); E11.9 Type 2 diabetes mellitus without complications; E78.5 Hyperlipidemia, unspecified; I10 Essential (primary) hypertension; I25.10 Atherosclerotic heart disease of native coronary artery without angina pectoris; Z95.1 Presence of aortocoronary bypass graft; Z88.6 Allergy status to analgesic agent; Z87.891 Personal history of nicotine dependence; W01.0XXA Fall on same level from slipping, tripping and stumbling without subsequent striking against object, initial encounter; Y93.01 Activity, walking, marching and hiking; Y92.89 Other specified places as the place of occurrence of the external cause; Y99.8 Other external cause status
CPT/HCPCS: 36415; 70450; 70486; 71045; 80053; 82550; 84484; 85025; 85610; 85730; 90471; 90714; 93005

== ENCOUNTER 2024-08-25 21:09 | Inpatient (IN) | payer OTHER ==
[~2024-08-25] VITALS: Ht 182.9 cm; Wt 121.3 kg
[~2024-08-25 21:09] MED LIST changes: -ACET-66 PO; +AMLO-257 PO; -AMLO-258 PO; -ATOR20TA65 PO; +ATOR40TA69 PO; +CHOL2000 PO; -CHOL200013 PO; -FERR-82 PO; +FURO40TA5 PO; +Folic Acid/Vitamin B Comp W-C PO; -GLUC1CAP PO; +GLYB2.5T5 PO; -HYDR-4457 PO; +HYDR25 PO; +LOSA100T59 PO; +MAGN400C PO; +METO100T14 PO; -METO50TA18 PO; +MUPI22OI2 TP; +NITR0.4T50 SL; -OMEP20CA12 PO; +POTA-192 PO; +TRAZ-185 PO; -VALS320T16 PO
[2024-08-25 21:42] LABS: BASOPHILS # (AUTO) 0.04 K/uL (0.00-0.20); BASOPHILS % (AUTO) 0.2 % (0.0-5.0); EOSINOPHILS # (AUTO) 0.03 K/uL (0.00-0.70); EOSINOPHILS % (AUTO) 0.2 % (0.0-8.0); HEMATOCRIT 30.6 % (42-54); IMMATURE GRANULOCYTE ABSOLUTE 0.12 K/uL (0-1); LYMPHOCYTES # (AUTO) 2.3 K/uL (1.0-4.8); LYMPHOCYTES % (AUTO) 12.4 % (21.0-51.0); MEAN CORPUSCULAR HEMOGLOBIN 30.6 pg (27.0-33.0); MEAN CORPUSCULAR HGB CONC 33.3 g/dL (32.0-36.0); MEAN CORPUSCULAR VOLUME 91.9 fL (79-99); MONOCYTES # (AUTO) 1.5 K/uL (0.1-1.0); MONOCYTES % (AUTO) 7.7 % (3.0-13.0); NEUTROPHILS # (AUTO) 14.8 K/uL (1.8-7.7); NEUTROPHILS % (AUTO) 78.9 % (40.0-77.0); PLATELET COUNT (AUTO) 220 K/uL (130-400); RED BLOOD CELL COUNT(AUTO) 3.33 MIL/uL (4.50-6.20); WHITE BLOOD COUNT (AUTO) 18.8 K/uL (4.8-10.8)
[2024-08-25 21:46] LABS: RAPID GROUP A STREP negative (NEGATIVE)
[2024-08-25 21:50] LABS: ADD UA MICROSCOPIC YES; APPEARANCE,URINE CLEAR (CLEAR); BILIRUBIN,URINE NEGATIVE (NEGATIVE); COLOR,URINE COLORLESS (YELLOW); GLUCOSE, URINE (UA) 50 mg/dL (NEGATIVE); KETONES,URINE NEGATIVE (NEGATIVE); LEUKOCYTE ESTERASE ,URINE NEGATIVE Leu/uL (NEGATIVE); NITRATE,URINE NEGATIVE (NEGATIVE); PH,URINE 6.5 (5.0-8.0); PROTEIN,URINE 200 mg/dL (NEGATIVE); UROBILINOGEN,URINE 0.2 mg/dL (0.2-1.0)
[2024-08-25 21:52] LABS: INR 0.98 (0.85-1.15); PROTHROMBIN TIME 10.4 SEC (9.6-11.6)
[2024-08-25 21:54] LABS: CREATININE 2.1 mg/dL (0.5-1.3); PARTIAL THROMBOPLASTIN TIME 28.4 SEC (26.3-35.5); POTASSIUM 4.7 mmol/L (3.5-5.1)
[2024-08-25 21:57] LABS: INFLUENZA TYPE A Negative For Type A (NEGATIVE); INFLUENZA TYPE B Negative For Type B (NEGATIVE)
[2024-08-25 22:00] LABS: SARS-CoV-2, RNA, NAAT NEGATIVE SARS CoV-2 (NEGATIVE)
[2024-08-25 22:02] LABS: HYALINE CASTS, URINE 0-1 /LPF (0-1 /LPF); RBC,URINE 0-1 /HPF (0-1); SQUAMOUS EPITHELIAL CELL,UR RARE /HPF (0-2); TRANSITIONAL EPI CELLS,URINE FEW /HPF (None Seen)
[2024-08-25 22:05] LABS: B-TYPE NATRIURETIC PEPTIDE 210 pg/mL (0-100)
[2024-08-25] MEDS: cefTRIAXone 1G VIAL IVPB ONE (22:25)
[2024-08-25] MEDS: [UNRECOGNIZED DRUG - OTHER] IV ONE (22:25)
--- NOTE | 2024-08-25 22:32 | ERN ---
General Chief Complaint: Fever Stated Complaint: FEVER, SHORTNESS OF BREATH Time Seen by MD: 21:11 Source: patient History of Present Illness Initial Comments Patient is an 78-year-old male coming in to be evaluated for fever. Per patient he has had these symptoms since yesterday. Also states he has been having diarrhea and abdominal discomfort. During evaluation triage no fevers present. Allergies: Coded Allergies: tramadol (Unverified Allergy, Unknown, 09/28/17) Home Meds Active Scripts Nitroglycerin (Nitroglycerin) 0.4 Mg Tab.subl, 1 TAB SL AD for chest pain, #25 TAB 1 Refill 1st sign of attack; may repeat every 5 mins; if pain persists after 3 in 15 min, medical attention is recommended Prov:BRIANNA MENDEZ MD 04/14/24 Magnesium Oxide (Magnesium) 400 Mg Magnesium Capsule, 1 CAP PO DAILY for 30 Day s, #30 CAP 1 Refill Prov:BRIANNA MENDEZ MD 04/14/24 Potassium Chloride (K-Dur/Klor-Con) 20 Meq Ertab, 1 TAB PO DAILY for 30 Days, #30 TAB 1 Refill Prov:BRIANNA MENDEZ MD 04/14/24 Glyburide (Glyburide) 2.5 Mg Tablet, 1 TAB PO DAILY for 30 Days, #30 TAB 1 Refill Prov:BRIANNA MENDEZ MD 04/14/24 Hydralazine HCl (Apresoline) 25 Mg Tab, 25 MG PO TID for 30 Days, #90 TAB 1 Refill Prov:BRIANNA MENDEZ MD 04/14/24 Furosemide (Furosemide) 40 Mg Tablet, 1 TAB PO BID for 30 Days, #60 TAB 1 Refill Prov:BRIANNA MENDEZ MD 04/14/24 [Folic Acid/Vitamin B Comp W-C] 1 CAP TAB No Conflict Check, 1 CAP PO DAILY for 30 Days, #30 1 Refill Prov:BRIANNA MENDEZ MD 04/14/24 Reported Medications Mupirocin (Mupirocin Ointment) 2 % Oint, 1 APPL TP TID for 5 Days, #15 GM 0 Refills apply to affected area(s) 04/10/24 Metoprolol Tartrate (Metoprolol Tartrate) 100 Mg Tablet, 1 TAB PO BID for 30 Days, #60 TAB 0 Refills 04/10/24 Cholecalciferol (Vitamin D3) (Vitamin D3) 50 Mcg (2000 Unit) Capsule, 1 CAP PO DAILY for 30 Days, #30 CAP 0 Refills 04/10/24 Amlodipine Besylate (Amlodipine Besylate) 5 Mg Tablet, 1 TAB PO DAILY for 30 Days, #30 TAB 0 Refills 04/10/24 Trazodone HCl (Trazodone HCl) 50 Mg Tablet, 50 MG PO HS, TAB 03/10/24 Atorvastatin Calcium (LIPITOR) 40 Mg Tablet, 40 MG PO AM, TAB 03/10/24 Losartan Potassium (Losartan Potassium) 100 Mg Tablet, 100 MG PO AM, TAB 03/10/24 Apixaban (Eliquis) 5 Mg Tablet, 5 MG PO BID, TAB 08/14/17 Hydrochlorothiazide (Hydrochlorothiazide) 25 Mg Tablet, 25 MG PO DAILY, TAB 08/14/17 Aspirin (ASPIRIN 81 MG ECTAB) 81 Mg Ectab, 81 MG PO DAILY, TAB.EC 01/27/15 Tamsulosin HCl (Tamsulosin HCl) 0.4 Mg Cap.er.24h, 0.4 MG PO PM, CAPSULE. 12/02/14 Past Medical History Past Medical History: CHF, Diabetes-Type II, High Cholesterol, Hypertension Past Surgical History: Pacer/AICD ROS Dictation CONSTITUTIONAL: No chills, fever, weakness, no diaphoresis, no malaise. HEAD/FACE: No signs of trauma. EENT: No eye pain, no blurred vision, no tearing, no double vision, no ear pain, no ear discharge, no nose pain, no nasal congestion, no throat pain, no throat swelling, no mouth pain. RESPIRATORY: No cough, no orthopnea, no SOB, no stridor, no wheezing. CARDIOVASCULAR: No chest pain, no edema, no palpitations, no syncope. GASTROINTESTINAL/ABDOMINAL: No abdominal pain, no constipation, no diarrhea, no nausea, no vomiting. GENITOURINARY: No abnormal discharge, no dysuria, no frequent urination, no hematuria. No complaints of pain in the genitals. MUSCULOSKELETAL: No back pain, no gout, no joint pain, no joint swelling, no muscle pain, no muscle stiffness, no neck pain. INTEGUMENTARY: No change in color, no change in hair/nails, no dryness, no lesion, no lumps, no rash. NEUROLOGICAL/PSYCH: No anxiety, not depressed, no emotional problem, no headache, no numbness, no pre-existing deficit, no history of seizures, no tremors, no weakness. HEMATOLOGIC/LYMPHATIC: Not anemic, no history of blood clots, no apparent bleeding, no bruising, glands not swollen. All Systems Negative, Except as Noted. Physical Exam Physical Exam Dictation VITAL SIGNS: Reviewed. GENERAL APPEARANCE: Alert, oriented x3, no acute distress, obese. HEAD AND FACE: Non-traumatic. EYES: PERRL, pink conjunctivas, eyelid no trauma, anterior chamber clear. EARS: Pinnas intact and no signs of trauma or erythema. Ear canals clear and no discharge. TMs no erythema. NOSE: No discharge, no bleeding. OROPHARYNX: Mouth normal, teeth no caries, tongue pink. Pharynx clear, no erythema. Tonsils no exudates, no abscesses noted. Mucous membrane moist. NECK: Supple, non-tender, no thyromegaly, no masses, no JVD, no bruits. BREAST: Deferred. CHEST: No tenderness, no crepitus, no paradoxical movement, no retractions. LUNGS: Clear, well-ventilated, symmetric, no rales, no wheezing, no rhonchi, no stridor, good breath sounds bilaterally. HEART: Regular rate, regular rhythm, no murmur, no gallops. VASCULAR: No peripheral edema. ABDOMEN: Soft, positive bowel sounds, nondistended, no guarding, nontender, no rebound, no masses no hepatomegaly, no splenomegaly, no Chaudhry's sign, no hernias. RECTAL: Deferred. GENITAL: Deferred. NEUROLOGICAL: Normal speech, gross motor function intact, gross sensory function intact. MUSCULOSKELETAL: Neck nontender, full range of motion, back nontender, full range of motion. EXTREMITIES: Nontender, full range of motion. SKIN: Color pink, dry, no turgor, no rash, no lacerations, no abrasions, no contusions. LYMPHATICS: Deferred. Results Laboratory and Microbiology Lab and Micro Result Laboratory Tests Test 08/25/24 21:25 08/25/24 21:30 08/25/24 21:43 Influenza Type A Antigen Negative For Type A Influenza Type B Antigen Negative For Type B SARS-CoV-2, RNA, NAAT NEGATIVE SARS CoV-2 Group A Streptococcus Rapid negative (NEGATIVE) White Blood Count 18.8 K/uL (4.8-10.8) H Red Blood Count 3.33 MIL/uL (4.50-6.20) L Hemoglobin 10.2 g/dL (14.0-18.0) L Hematocrit 30.6 % (42-54) L Mean Corpuscular Volume 91.9 fL (79-99) Mean Corpuscular Hemoglobin 30.6 pg (27.0-33.0) Mean Corpuscular Hemoglobin Concent 33.3 g/dL (32.0-36.0) Red Cell Distribution Width 14.0 % (11.0-15.5) Platelet Count 220 K/uL (130-400) Mean Platelet Volume 9.7 fL (7.5-10.5) Immature Granulocyte % (Auto) 0.6 % (0-1) Neutrophils (%) (Auto) 78.9 % (40.0-77.0) H Lymphocytes (%) (Auto) 12.4 % (21.0-51.0) L Monocytes (%) (Auto) 7.7 % (3.0-13.0) Eosinophils (%) (Auto) 0.2 % (0.0-8.0) Basophils (%) (Auto) 0.2 % (0.0-5.0) Neutrophils # (Auto) 14.8 K/uL (1.8-7.7) H Lymphocytes # (Auto) 2.3 K/uL (1.0-4.8) Monocytes # (Auto) 1.5 K/uL (0.1-1.0) H Eosinophils # (Auto) 0.03 K/uL (0.00-0.70) Basophils # (Auto) 0.04 K/uL (0.00-0.20) Absolute Immature Granulocyte (auto 0.12 K/uL (0-1) Nucleated Red Blood Cells 0.0 % (0.0-0.19) Prothrombin Time 10.4 SEC (9.6-11.6) Prothromb Time International Ratio 0.98 (0.85-1.15) Activated Partial Thromboplast Time 28.4 SEC (26.3-35.5) Sodium Level 135 mmol/L (136-145) L Potassium Level 4.7 mmol/L (3.5-5.1) Chloride Level 100 mmol/L (101-111) L Carbon Dioxide Level 26 mmol/L (21-32) Blood Urea Nitrogen 52 mg/dL (7-18) H Creatinine 2.1 mg/dL (0.5-1.3) H Glomerular Filtration Rate Calc 31 mL/min (>90) Random Glucose 162 mg/dL (70-105) H Lactic Acid Level 1.6 mmol/L (0.8-2.5) Total Calcium 8.9 mg/dL (8.5-10.1) Total Creatine Kinase 187 U/L (21-232) # Troponin I High Sensitivity 69 ng/L (4-75) B-Type Natriuretic Peptide 210 pg/mL (0-100) H Urine Color COLORLESS (YELLOW) Urine Appearance CLEAR (CLEAR) Urine pH 6.5 (5.0-8.0) Urine Specific [place] 1.007 (1.001-1.031) Urine Protein 200 mg/dL (NEGATIVE) H Urine Glucose (UA) 50 mg/dL (NEGATIVE) H Urine Ketones NEGATIVE mg/dL (NEGATIVE) Urine Occult Blood +- (TRACE) (NEGATIVE) H Urine Nitrate NEGATIVE (NEGATIVE) Urine Bilirubin NEGATIVE mg/dL (NEGATIVE) Urine Urobilinogen 0.2 mg/dL (0.2-1.0) Urine Leukocyte Esterase NEGATIVE Coby/uL Urine RBC 0-1 /HPF (0-1) Urine WBC 2-5 /HPF (0-1) H Urine Squamous Epithelial Cells RARE /HPF (0-2) Urine Transitional Epithelial Cells FEW /HPF (None Seen) Urine Bacteria None /HPF (None Seen) Urine Hyaline Casts 0-1 /LPF (0-1 /LPF) Labs Reviewed?: Yes EKG/XRAY/US/CT/MRI CT Scan Comment CT ABDOMEN AND PELVIS WITHOUT CONTRAST LIVER AND SPLEEN PANCREAS AND ADRENAL GLANDS ARE NORMAL, THE KIDNEY DEMONSTRATED NONSPECIFIC BILATERAL PERINEPHRIC STRANDING WITHOUT HYDRONEPHROSIS, THE FINDINGS ARE ENTIRELY NONSPECIFIC HOWEVER PYELONEPHRITIS IN THE EXCLUDED, CORRELATION WITH THE [facility] RECOMMENDED, WHAT APPEARS TO BE NONOBSTRUCTING RENAL PELVIS CALCULUS IN THE RIGHT MEASURES 7 X 4 MM, THE SMALL AND LARGE BOWELS ARE NORMAL, NO EVIDENCE OF APPENDICITIS, URINARY BLADDER IS NORMAL HELPED WITH THE BASE IN THE WELL VISUALIZED SECONDARY TO STREAK ARTIFACT FROM THE BILATERAL TOTAL HIP REPLACEMENT. MDM MDM: Differential diagnosis: Fever, sepsis Rationale: Tests considered and ordered secondary to shared decision making include: labs, ECG and radiology Previous outside records reviewed: Old ER visits. Risk of complication and/or morbidity or mortality of patient management: None Medications-Per medication reconciliation Need for hospitalization: Patient does meet criteria for hospitalization. Need for emergency major/minor surgery: No There are no social concerns with this patient. Prescription drug management Prescriptions will include symptomatic care Patient's prior external medical records from other ER visits were reviewed by me as indicated. Prior testing and results from previous visits were reviewed. Prior tests were taken into account with medical decision making and resource utilization, independent historian/historians were used to obtain complete medical history. I independently interpreted the test that were performed, results were reviewed by me and considered findings on radiology if ordered. Medical management and examination interpretation discussions were had by me with other qualified healthcare professionals as indicated for the patient's care. PATIENT WILL BE ADMITTED UNDER THE CARE OF HOSPITALIST GROUP FOR ONGOING MANAGEMENT OF SEPSIS POSSIBLE PYELONEPHRITIS. ED Course Orders Procedure Category Date Status Time Cbc With Differential LAB 08/25/24 Complete 21:13 Prothrombin Time With LAB 08/25/24 Complete INR 21:13 Partial LAB 08/25/24 Complete Thromboplastin Time 21:13 Blood Cult MILAD 08/25/24 In Process 21:13 Urinalysis Profile LAB 08/25/24 Complete 21:13 Culture Urine [place] 08/25/24 In Process 21:13 Creatine Kinase, Total LAB 08/25/24 Complete 21:13 Troponin I High LAB 08/25/24 Complete Sensitivity 21:13 B-Type Natriuretic LAB 08/25/24 Complete Peptide 21:13 Lactic Acid LAB 08/25/24 Complete 21:13 Basic Metabolic Panel LAB 08/25/24 Complete 21:13 Covid Rna Naat LAB 08/25/24 Complete 21:13 Influenza Type A & B, LAB 08/25/24 Complete Rapid 21:13 Rapid (Group A Strep) LAB 08/25/24 Complete 21:13 0.9%Nacl 1000ml (Ns PHA 08/25/24 In Process 1000ml) 22:00 Ceftriaxone 1g Vial PHA 08/25/24 In Process (Rocephine 1g Inj) 22:00 Chest 1vw RAD 08/25/24 Taken 21:59 Ct Abdomen/Pelvis W/O CT 08/25/24 Taken Contrast 22:30 Labetalol 20mg Syg PHA 08/26/24 Transmitted (Trandate 20mg Syg) 01:00 Current Medications Medications (Trade) Dose Ordered Sig/Abhijit Route PRN Reason Start Time Stop Time Status Last Admin Dose Admin Ceftriaxone Sodium (ROCEphine 1G INJ) 1 gm ONCE ONCE IVPB 08/25/24 22:00 08/25/24 22:02 DC 08/25/24 22:25 Sodium Chloride 3,810 ml @ 1,270 mls/hr ONCE ONCE IV 08/25/24 22:00 08/26/24 00:59 08/25/24 22:25 Vital Signs Date Time Temp Pulse Resp B/P (MAP) Pulse Ox O2 Delivery O2 Flow Rate FiO2 08/25/24 21:30 99.5 73 16 176/62 97 Room Air* 0 21 08/25/24 21:11 100.0 80 20 180/85 96 Nasal Cannula 1.0 Critical Care Note Comments CRITICAL CARE PROCEDURE NOTE AUTHORIZED AND PERFORMED BY: ME TOTAL CRITICAL CARE TIME: APPROXIMATELY 36 MINUTES DUE TO A HIGH PROBABILITY OF CLINICALLY SIGNIFICANT, LIFE THREATENING DETERIORATION, THE PATIENT REQUIRED MY HIGHEST LEVEL OF PREPAREDNESS TO INTERVE NE EMERGENTLY AND I PERSONALLY SPENT THIS CRITICAL CARE TIME DIRECTLY AND PERSONALLY MANAGING THE PATIENT. THIS CRITICAL CARE TIME INCLUDED OBTAINING A HISTORY; EXAMINING THE PATIENT; PULSE OXIMETRY; ORDERING AND REVIEW OF STUDIES; ARRANGING URGENT TREATMENT WITH DEVELOPMENT OF A MANAGEMENT PLAN; EVALUATION OF PATIENT'S RESPONSE TO TREATMENT; FREQUENT REASSESSMENT; AND, DISCUSSIONS WITH OTHER PROVIDERS. THIS CRITICAL CARE TIME WAS PERFORMED TO ASSESS AND MANAGE THE HIGH PROBABILITY OF IMMINENT, LIFE-THREATENING DETERIORATION THAT COULD RESULT IN MULTI-ORGAN FAILURE. IT WAS EXCLUSIVE OF SEPARATELY BILLABLE PROCEDURES AND TREATING OTHER PATIENTS AND TEACHING TIME. PLEASE SEE MDM SECTION AND THE REST OF THE NOTE FOR FURTHER INFORMATION ON PATIENT ASSESSMENT AND TREATMENT. DX & DISP Disposition: Inpatient Decision to Admit Time: 00:46 Departure Impression: Primary Impression: Sepsis Additional Impressions: Gastroenteritis, Pyelonephritis, Kidney stone Condition: Stable Referrals: JOSE LUIS RIDER (PCP) EFRAIN DAVIS MD August 25, 2024 22:32
[2024-08-26] VITALS (11 sets, daily range): PULSE 67–98; RESP 20–28; O2SAT 97–98
--- NOTE | 2024-08-26 00:39 | NUR ---
HOME MEDICATIONS NOT AT BEDSIDE. PT INFORMED TO HAVE HOME MEDS BROUGHT TOMORROW BY FAMILY.
[2024-08-26] MEDS: LAbetaLOL 20MG SYG IV ONE (00:50)
--- NOTE | 2024-08-26 00:58 | NUR ---
ADMITTING CREDIT SUPPORT COUNSELOR AT BEDSIDE
[2024-08-26] MEDS: IpraTROPium/alBUTERol SULFATE 3 ML SOLUTION IH ONE (01:17)
--- NOTE | 2024-08-26 01:34 | HP ---
[facility]ORY [facility] PHYS[facility] Date of Service: August 26, 2024 Time of Service: 01:10 PCP: Dmitriy Guan HISTORY OF PRESENT ILLNESS: This is an 78-year-old male with past medical history of CHF, type 2 diabetes, hypertension, hyperlipidemia, CKD stage 3, atrial fibrillation on chronic anticoagulation with Eliquis, anemia, morbid obesity, BPH and coronary artery disease with CABG x3,PPM/AICD was brought by EMS to the ED for complaints of fever, diarrhea and abdominal pain which started yesterday.Patient states he has a non bloody diarrhea x 3 episodes to day.Patient also reports he has involuntary tremors to right hand and states he has a Parkinson,s disease. Upon ER arrival patient's vital signs temperature a 100, heart rate 80, blood pressure 180/85 saturation 96% on 1 L. Seen and examined patient in the ER awake,alert and coherent ,appears comfortable.Patient denies chest pain,palpitation,cough and shortness of breath. Latest vital signs temperature 98.4, heart rate 80, blood pressure 175/70 saturation 95% on room air. Labs: WBC 18.8, neutrophils 78, hemoglobin 10, hematocrit 30 platelet count 220. Sodium 135, chloride 100, BUN 52, creatinine 2.1, GFR 31, glucose 162 lactic acid 1.6 troponin 69 BNP 210. Urinalysis remarkable for protein, glucose and trace urine occult blood and urine WBC 2-5. Influenza type a and B negative SARs COVID negative strep rapid negative. Chest x-ray and CT abdomen and pelvis official result still pending at this time. Preliminary result on CT abdomen and pelvis without contrast result revealed nonobstructing renal pelvic calculus on the right measures 7 x 4 mm the small and large bowel are normal. No evidence for appendicitis the urinary bladder is normal although the base is not well visualized secondary to streak artifact with from bilateral total hip replacements. While in the ER patient received albuterol, labetalol 10 mg IV, Rocephin 1 g IV and fluid resuscitation of NS 30 mL/kilogram over 3 hours. We will admit patient for further medical management. REVIEW OF SYSTEMS CONSTITUTIONAL: Denies fevers, chills, or night sweats. No unintentional weight loss reported. NEUROLOGICAL: Denies headache, amaurosis fugax, motor weakness, sensory deficit, vertigo/spinning sensation, gait abnormalities, or tremors. ENT: No hearing loss, otalgia, otorrhea, rhinitis, rhinorrhea, hoarseness, or sore throat. CARDIOVASCULAR: Denies any exertional angina, dyspnea on exertion, orthopnea, paroxysmal nocturnal dyspnea, palpitations, life-threatening arrhythmias, claudication. PULMONARY: Denies any shortness of breath, cough, phlegm/sputum, hemoptysis, pleuritic chest pain. SLEEP: Denies morning headaches, daytime somnolence or napping. Denies difficulty falling asleep, staying asleep, waking from sleep. Denies knowledge of snoring. GASTROINTESTINAL: Complaints of diarrhea and abdominal pain Denies any type of dysphagia to either liquids or solids. Denies nausea, vomiting, pyrosis, early satiety, constipation, or changes in stool consistency or caliber. Denies coffee-ground emesis, hematemesis, hematochezia, or melanotic stools. GENITOURINARY: Denies frequency, urgency, nocturia, hematuria or incontinence (Storage/Irritative symptoms.) Low urinary stream, straining to void, urinary intermittency or hesitancy, splitting of the voiding stream, terminal dribbling. ENDOCRINOLOGIC: Denies polyuria, polydipsia, polyphagia or heat/cold intolerances. HEMATOLOGIC: Denies thrombophilia/previous clots, or coagulopathy/bleeding disorders. ONCOLOGIC: Denies personal history of malignancy. DERMATOLOGIC: Denies rashes or pruritus. PSYCHIATRIC: Denies any suicidal or homicidal ideation. Denies hallucinations. PAST MEDICAL HISTORY: [CHF, type 2 diabetes, hypertension, hyperlipidemia, CKD stage 3, atrial fibrillation on chronic anticoagulation with Eliquis, anemia, morbid obesity, BPH and coronary artery disease with ] PAST SURGICAL HISTORY: [ CABG x3, ppm/AICD and bilateral hip replacement] PAST SOCIAL HISTORY: [ Patient lives alone. Patient denies alcohol tobacco and recreational drug use ] FAMILY HISTORY: [Cancer ] Coded Allergies: tramadol (Unverified Allergy, Unknown, 09/28/17) PHYSICAL EXAM GENERAL APPEARANCE: The patient is awake, alert, and oriented, in no acute cardiopulmonary distress. NEUROLOGICAL: Cranial nerves II-XII grossly intact. Motor is 5/5 in bilateral upper and lower extremities proximal to distal. No sensory deficits. HEENT: Face is symmetric. Pupils are equal and reactive. Extraocular movements are intact. NECK: Supple. No JVD. No thyromegaly. No submental, submandibular, pre- /postauricular, occipital or supraclavicular lymphadenopathy. CHEST: Normal chest expansion. No Telemetry. LUNGS: Scattered expiratory wheezing on bilateral lung [place] per auscultation Absence of any rales and rhonchi CARDIOVASCULAR: Regular. S1 and S2 normal. No appreciable rubs, murmurs or gallops. ABDOMEN: Abdomen is round firm and distended .There is no rebound, voluntary guarding, or rigidity. : Deferred. No Griffin. EXTREMITIES: Traces of edema to bilateral lower extremities. No clubbing. Good capillary refill. SKIN: No skin breakdown. Vital Sign (Last 24 Hours) 08/26/24 08/26/24 00:30 00:50 Temp 98.4 Pulse 80 Resp 21 B/P (MAP) 175/80 Pulse Ox 95 O2 Delivery Room Air* O2 Flow Rate 0 FiO2 21 LABS: Laboratory: Test 08/25/24 21:43 08/25/24 21:30 08/25/24 21:25 Range/Units Urine Color COLORLESS YELLOW Urine Appearance CLEAR CLEAR Urine pH 6.5 5.0-8.[address] [place] 1.007 1.001-1.031 Urine Protein 200 H NEGATIVE mg/dL Urine Glucose (UA) 50 H NEGATIVE mg/dL Urine Ketones NEGATIVE NEGATIVE mg/dL Urine Occult Blood +- (TRACE) H NEGATIVE Urine Nitrate NEGATIVE NEGATIVE Urine Bilirubin NEGATIVE NEGATIVE mg/dL Urine Urobilinogen 0.2 0.2-1.0 mg/dL Urine Leukocyte Esterase NEGATIVE NEGATIVE Coby/uL Urine RBC 0-1 0-1 /HPF Urine WBC 2-5 H 0-1 /HPF Urine Squamous Epithelial Cells RARE 0-2 /HPF Urine Transitional Epithelial Cells FEW None Seen /HPF Urine Bacteria None None Seen /HPF Urine Hyaline Casts 0-1 0-1 /LPF /LPF White Blood Count 18.8 H 4.8-10.8 K/uL Red Blood Count 3.33 L 4.50-6.20 MIL/uL Hemoglobin 10.2 L 14.0-18.0 g/dL Hematocrit 30.6 L 42-54 % Mean Corpuscular Volume 91.9 79-99 fL Mean Corpuscular Hemoglobin 30.6 27.0-33.0 pg Mean Corpuscular Hemoglobin Concent 33.3 32.0-36.0 g/dL Red Cell Distribution Width 14.0 11.0-15.5 % Platelet Count 220 130-400 K/uL Mean Platelet Volume 9.7 7.5-10.5 fL Immature Granulocyte % (Auto) 0.6 0-1 % Neutrophils (%) (Auto) 78.9 H 40.0-77.0 % Lymphocytes (%) (Auto) 12.4 L 21.0-51.0 % Monocytes (%) (Auto) 7.7 3.0-13.0 % Eosinophils (%) (Auto) 0.2 0.0-8.0 % Basophils (%) (Auto) 0.2 0.0-5.0 % Neutrophils # (Auto) 14.8 H 1.8-7.7 K/uL Lymphocytes # (Auto) 2.3 1.0-4.8 K/uL Monocytes # (Auto) 1.5 H 0.1-1.0 K/uL Eosinophils # (Auto) 0.03 0.00-0.70 K/uL Basophils # (Auto) 0.04 0.00-0.20 K/uL Absolute Immature Granulocyte (auto 0.12 0-1 K/uL Nucleated Red Blood Cells 0.0 0.0-0.19 % Prothrombin Time 10.4 9.6-11.6 SEC Prothromb Time International Ratio 0.98 0.85-1.15 Activated Partial Thromboplast Time 28.4 26.3-35.5 SEC Sodium Level 135 L 136-145 mmol/L Potassium Level 4.7 3.5-5.1 mmol/L Chloride Level 100 L 101-111 mmol/L Carbon Dioxide Level 26 21-32 mmol/L Blood Urea Nitrogen 52 H 7-18 mg/dL Creatinine 2.1 H 0.5-1.3 mg/dL Glomerular Filtration Rate Calc 31 >90 mL/min Random Glucose 162 H 70-105 mg/dL Lactic Acid Level 1.6 0.8-2.5 mmol/L Total Calcium 8.9 8.5-10.1 mg/dL Total Creatine Kinase 187 # 21-232 U/L Troponin I High Sensitivity 69 4-75 ng/L B-Type Natriuretic Peptide 210 H 0-100 pg/mL Influenza Type A Antigen Negative For Type A NEGATIVE Influenza Type B Antigen Negative For Type B NEGATIVE SARS-CoV-2, RNA, NAAT NEGATIVE SARS CoV-2 NEGATIVE Group A Streptococcus Rapid negative NEGATIVE DIAGNOSTICS / RADIOLOGY: [ ] ASSESSMENT: Sepsis POA Possible pyelonephritis POA Acute kidney injury POA Kidney stone POA Hypertensive urgency POA Acute normocytic normochromic anemia POA Acute leukocytosis POA CHF POA Debility POA Diabetes POA Hyponatremia POA Dehydration POA Hyperlipidemia POA 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 Atrial fibrillation on chronic anticoagulation POA Sacral ulcer POA PLAN: We will admit patient in medical telemetry Upgrade to ICU due to patient needs on Cardene drip We will start on clear liquid diet advanced as tolerated Patient received IV fluid resuscitation of NS 30 mL/kilogram over 3 hours We will continue Rocephin 1 g IV b.i.d. for empiric coverage We will replace electrolytes as needed per protocol We will start on insulin sliding scale AC & HS with hypoglycemia protocol We will add prn medication for fever,pain,cough , nausea and vomiting Daily weight and strict I&O Follow-up chest x-ray and CT abdomen and pelvis result We will reconcile home meds once medlist available We will seek critical caqre consultation We will seek wound care and management eval We will request labs in am Further orders to follow depending on above results Case discussed with attending physician and came up with above treatment and plan of care. ADVANCED CARE PLANNING 1. Which of the following were discussed? Hospice Care - No Therapeutic options - Yes Advance Directives - No Other discussions - 2. Discussed with who? Patient 3. Voluntary nature of this service was explained to the patient? Yes 4. Amount of time spent - _25 5. Reviewed by Physician? (if this service was performed by NPP) Yes ADDENDUM: ATTENDING PHYSICIAN ATTESTATION: I have reviewed the midlevel's plan. I have independently seen, reviewed the chart and made my own assessment of the patient. See my addendum for updates to the midlevel's medical plan MD JANKI Escobar [facility] August 26, 2024 01:33 AYDEE CARRANZA MD August 26, 2024 13:20
[2024-08-26] MEDS: hydrALAZine 20MG/ML VIAL IV PRN (01:57)
[2024-08-26] MEDS ORDERED: PoTASSium chloRIDE 20MEQ ER 20 MEQ ERTAB PO PRN (02:00)
[2024-08-26] MEDS ORDERED: GLUCAGON 1MG KIT 1 MG ML IM PRN (02:00)
[2024-08-26] MEDS ORDERED: ondanSETRON 4MG INJ IV PRN (02:00)
[2024-08-26] MEDS ORDERED: PoTASSium chloRIDE 10MEQ/100ML 100 ML IV PRN (02:00)
[2024-08-26] MEDS: IpraTROPium/alBUTERol SULFATE 3 ML SOLUTION IH SCH (02:30)
--- NOTE | 2024-08-26 02:30 | NUR ---
LUCY SHEARER MADE AWARE OF CONTINUED HYPERTENSION AFTER 2 PRN ANTIHYPERTENSIVES. ORDERS RECEIVED TO START CARDENE DRIP AND UPGRADE TO ICU. LAZARO FALCONCHROMIUM PLATER MADE AWARE.
--- NOTE | 2024-08-26 02:41 | NUR ---
CLINTON TONGUE PRESSER WITH CRITICAL CARE CONSULTED AT THIS TIME.
[2024-08-26] MEDS: niCARDIpine 25MG INJ 25 MG in 0.9% NACL 250ML 240 ML IV PRN (02:55)
[2024-08-26] MEDS ORDERED: NICARDIPINE IV PRN (03:00)
[2024-08-26] MEDS ORDERED: NACL 0.9% IV PRN (03:00)
[2024-08-26] MEDS: morPHINE 2 MG SYG IV PRN (06:37)
--- NOTE | 2024-08-26 06:37 | EKG ---
[facility] Test Date: 2024-08-26 Test Time: 03:32:08 Pat Name: JEANINE VILLALTA Department: [facility]HIP Room: ED 09 Gender: M [employer] [place]: [id number] : 1945 Requested By: EVARISTO BETANCUR Order Number: [id number] Reading MD: Wilfred Desai Measurements Intervals [place] Rate: 97 P: 92 AR: 154 QRS: -80 QRSD: 214 T: 97 QT: 457 QTc: 599 Interpretive Statements Ventricular-paced complexes Compared to ECG 04/09/2024 15:36:58 Atrial fibrillation no longer present Left bundle-branch block no longer present Intraventricular conduction delay no longer present ST (T wave) deviation no longer present Electronically Signed On 08-26-2024 17:33:19 CDT by Wilfred Desai Please click the below link to view image of tracing.
--- NOTE | 2024-08-26 06:55 | NUR ---
REPORT RECEIVED FROM YONIS ABARCA
--- NOTE | 2024-08-26 07:15 | NUR ---
[employer] CONSULTANT AT BEDSIDE W/PT CURRENTLY. NO ACUTE DISTRESS NOTED BUT WHEN PT DOES COUGH, HE HAS AN AUDIBLE COUGH W/RALES. PT STATES HE DRINKS "ALOT" OF WATER. I DID INFORM HIM THAT WITH HIS DX OF CONGESTIVE HEART FAILURE, HE NEEDS TO BE MINDFUL ON DRINKING TOO MUCH WATER D/T IT MAY CAUSE FURTHER BREATHING COMPLICATIONS.
[2024-08-26 07:29] LABS: BASOPHILS # (AUTO) 0.04 K/uL (0.00-0.20); BASOPHILS % (AUTO) 0.3 % (0.0-5.0); EOSINOPHILS # (AUTO) 0.02 K/uL (0.00-0.70); EOSINOPHILS % (AUTO) 0.1 % (0.0-8.0); HEMATOCRIT 27.4 % (42-54); IMMATURE GRANULOCYTE ABSOLUTE 0.06 K/uL (0-1); LYMPHOCYTES # (AUTO) 1.3 K/uL (1.0-4.8); LYMPHOCYTES % (AUTO) 9.4 % (21.0-51.0); MEAN CORPUSCULAR HEMOGLOBIN 30.8 pg (27.0-33.0); MEAN CORPUSCULAR HGB CONC 33.6 g/dL (32.0-36.0); MEAN CORPUSCULAR VOLUME 91.6 fL (79-99); MONOCYTES # (AUTO) 1.1 K/uL (0.1-1.0); MONOCYTES % (AUTO) 7.6 % (3.0-13.0); NEUTROPHILS # (AUTO) 11.5 K/uL (1.8-7.7); NEUTROPHILS % (AUTO) 82.2 % (40.0-77.0); PLATELET COUNT (AUTO) 195 K/uL (130-400); RED BLOOD CELL COUNT(AUTO) 2.99 MIL/uL (4.50-6.20); RED CELL DISTRIBUTION WIDTH 13.9 % (11.0-15.5)
[2024-08-26] MEDS: INSULIN humuLIN R 100 UNIT/ML 3ML SQ SCH (07:35)
[2024-08-26 07:39] LABS: ALBUMIN 2.7 g/dL (3.5-5.0); BILIRUBIN,TOTAL 0.3 mg/dL (0.2-1.0); MAGNESIUM 1.7 mg/dL (1.80-2.40); POTASSIUM 4.2 mmol/L (3.5-5.1); TOTAL PROTEIN, SERUM 6.3 g/dL (6.0-8.3)
--- NOTE | 2024-08-26 08:32 | HMCIMG ---
Exam Type: CT ABDOMEN/PELVIS W/O CONTRAST Clinical Information: fever Comparison: None CT Dose Index (CTDI): 10.20 mGy Dose Length Product (DLP): 530.00 total mGy-cm PROTOCOL: Routine noncontrast helical scanning of the abdomen and pelvis was performed at 5mm collimation. Findings: No hydronephrosis or ureteral dilatation is seen. Both kidneys demonstrate simple cysts and atrophy. Renal vascular calcifications are seen bilaterally. Right renal nonobstructing calculus mid pole, 7 mm. The lung bases are clear. Cardiomegaly. Status post median sternotomy. Coronary arterial calcifications of the [place] coronary arteries. The stomach is unremarkable. It shows no wall thickening. No gross ulceration is seen. It is not overly distended. There are no surrounding inflammatory changes. No wall lesions are identified to suggest cancer. The spleen is unremarkable. It is not enlarged. The pancreas shows normal anatomy. It is not fatty replaced. It shows no lesions. The pancreatic duct is not dilated. The gallbladder is unremarkable. It shows no cholelithiasis. The gallbladder wall is normal in thickness. There is no pericholecystic fluid. The is no acute or chronic inflammation noted. The adrenal glands are unremarkable. There is no enlargement. No lesions are noted. The liver is unremarkable. It shows no focal masses. The appendix is unremarkable. It shows no evidence of inflammation. No appendicolith is seen. The small bowel is unremarkable. There is no evidence of dilatation to suggest obstruction. No evidence of adynamic ileus is seen. There is no small bowel wall thickening to suggest enteritis. The colon is unremarkable. The urinary bladder is unremarkable. There is no wall thickening to suggest tumor or inflammation. There are no intraluminal calculi. There are no diverticula. There is no evidence of chronic bladder outlet obstruction. There is no evidence of urinary bladder distention to suggest urinary retention. The other pelvic structures are unremarkable. The bony and vascular structures are unremarkable for the patient's age. IMPRESSION: Right nephrolithiasis, other findings as described. This study was performed using dose reduction techniques to include automated exposure control and/or adjustment of the mA and/or kV according to patient size.
[2024-08-26] MEDS ORDERED: cefTRIAXone 1G VIAL 1 GM in 0.9%NACL 50ML 50 ML IV SCH (09:00)
--- NOTE | 2024-08-26 09:05 | HMCIMG ---
Exam Type: CHEST 1VW Clinical Information: fever Comparison: None Findings: The lungs are clear of infiltrates. The heart is enlarged in size. The bony and soft tissue structures of the chest are unremarkable. Left cardiac pacemaker is noted with leads in place. Impression: Clear lungs.
--- NOTE | 2024-08-26 09:10 | NUR ---
DR CARRANZA WAS JUST IN TO SEE PT. REFER TO NEW ORDERS
[2024-08-26] MEDS: cefTRIAXone 1G VIAL IVPB SCH (09:15)
[2024-08-26] MEDS: Vitamin B Complex/Vit C/Folic Acid PO SCH (09:16)
[2024-08-26] MEDS: metoPROLOL tartRATE 50 MG TAB PO SCH (09:16)
[2024-08-26] MEDS: hydrALAZine 25MG TABLET PO SCH (09:18)
--- NOTE | 2024-08-26 09:43 | CONS ---
[facility] CONSULTATION NOTE Date Patient Seen: August 26, 2024 Time of Visit: 09:43 Supervising Physician: [Dr. Conner] Reason for Consultation: [Medical management] Primary Care Physician: [Dr. Freida Izaguirre] Outpatient Specialists: [ ] Inpatient Consults: [ ] PROBLEM LIST: Sepsis secondary to pyelonephritis Acute kidney injury in chronic kidney disease Hypertensive urgency Non-obstructive R-renal pelvic calculus, 7mm CAD s/p remote CABG Chronic A-fib on eliquis outpatient PPM/AICD status Sacral ulcer Plan: Wean off Cardene drip as tolerated Start cefepime and vancomycin Follow blood and urine culture Consult Urology for evaluation Wound care consult for sacral ulcer Follow echocardiogram results Order renal ultrasound Order FENA labs Start Flomax b.i.d. Strain urine Continue gentle hydration with NS at 50 mL an hour Monitor labs and vitals Repeat labs in a.m. Further management per hospital course HPI: [This is an 78-year-old male with a history of diabetes, hypertension, hyperlipidemia, CHF, chronic AFib on Eliquis, S/P AICD and CAD s/p remote CABG who presents to the ED for evaluation of fever, shortness of breath, and abdominal pain. He was found septic in the ED with WBC of 18 an acute renal failure with creatinine of 2.1 on admission. He had hypertensive urgency with blood pressure of 180/85 and a low-grade temperature of a [address] of the abdomen and pelvis revealed a nonobstructive right renal pelvic calculus measuring 7 mm. He was treated per sepsis protocol in the ED. Was given a dose of Rocephin and 3 L of NS. He is currently afebrile, denies any nausea or vomiting. Admits a normal appetite. He does complain of slight abdominal discomfort.] PAST MEDICAL HX: see above PAST SURGICAL HX: noncontributory SOCIAL HISTORY: No tobacco, ETOH, or illicit drug use Coded Allergies: tramadol (Unverified Allergy, Unknown, 09/28/17) REVIEW OF SYSTEMS: 12 point ROS reviewed with patient. Pertinent positives mentioned above. Otherwise negative. PHYSICAL EXAM: GENERAL: alert, weak, awake oriented x 3, no acute distress HEENT: EOMI, Sclera non icteric, moist mucosa NECK: Supple, no JVD, trachea midline LUNGS: Clear breath sounds bilaterally. No wheezes, on room air HEART: Regular rate and rhythm. Normal S1 and S2, without murmurs ABD: Abdomen discomfort with palpation. Bowel sounds present, CVA tenderness bilaterally EXT: No clubbing cyanosis or edema NEURO: Alert and oriented to person, follows commands Vital Signs (last 8hr) Date Time Temp Pulse Resp B/P (MAP) Pulse Ox O2 Delivery O2 Flow Rate FiO2 08/26/24 08:30 84 24 160/55 95 Room Air* 0 08/26/24 07:45 87 16 151/57 95 Room Air* 0 08/26/24 07:13 84 22 08/26/24 07:12 84 20 N/A Room Air 08/26/24 06:46 98.4 83 23 147/61 99 Room Air* 0 08/26/24 06:14 98.6 87 21 162/58 98 Room Air* 0 08/26/24 05:31 92 160/64 08/26/24 05:16 98.2 93 24 158/56 95 Room Air* 0 08/26/24 04:23 98.1 93 24 148/40 96 Room Air* 0 08/26/24 04:00 98.4 91 24 175/72 96 Room Air* 0 08/26/24 03:00 98.2 90 20 196/89 97 Room Air* 0 08/26/24 02:55 196/89 08/26/24 02:28 98.6 91 24 205/78 97 Room Air* 0 08/26/24 02:26 98 22 N/A Room Air 08/26/24 02:24 98 22 08/26/24 01:56 98.6 83 22 189/69 95 Room Air* 0 LABS: Hematology Labs: Test 08/26/24 07:12 Range/Units White Blood Count 14.0 #H 4.8-10.8 K/uL Red Blood Count 2.99 L 4.50-6.20 MIL/uL Hemoglobin 9.2 L 14.0-18.0 g/dL Hematocrit 27.4 L 42-54 % Mean Corpuscular Volume 91.6 79-99 fL Mean Corpuscular Hemoglobin 30.8 27.0-33.0 pg Mean Corpuscular Hemoglobin Concent 33.6 32.0-36.0 g/dL Red Cell Distribution Width 13.9 11.0-15.5 % Platelet Count 195 130-400 K/uL Mean Platelet Volume 10.0 7.5-10.5 fL Immature Granulocyte % (Auto) 0.4 0-1 % Neutrophils (%) (Auto) 82.2 H 40.0-77.0 % Lymphocytes (%) (Auto) 9.4 L 21.0-51.0 % Monocytes (%) (Auto) 7.6 3.0-13.0 % Eosinophils (%) (Auto) 0.1 0.0-8.0 % Basophils (%) (Auto) 0.3 0.0-5.0 % Neutrophils # (Auto) 11.5 H 1.8-7.7 K/uL Lymphocytes # (Auto) 1.3 1.0-4.8 K/uL Monocytes # (Auto) 1.1 H 0.1-1.0 K/uL Eosinophils # (Auto) 0.02 0.00-0.70 K/uL Basophils # (Auto) 0.04 0.00-0.20 K/uL Absolute Immature Granulocyte (auto 0.06 0-1 K/uL Nucleated Red Blood Cells 0.0 0.0-0.19 % White Cell Morphology Comment See comments Chemistry Labs: Test 08/26/24 07:29 08/26/24 07:12 08/25/24 21:30 Range/Units Whole Blood Glucose 196 H 70-110 MG/DL Sodium Level 136 136-145 mmol/L Potassium Level 4.2 3.5-5.1 mmol/L Chloride Level 104 101-111 mmol/L Carbon Dioxide Level 22 21-32 mmol/L Blood Urea Nitrogen 46 H 7-18 mg/dL Creatinine 2.0 H 0.5-1.3 mg/dL Glomerular Filtration Rate Calc 33 >90 mL/min Random Glucose 203 H 70-105 mg/dL Total Calcium 7.9 L 8.5-10.1 mg/dL Magnesium Level 1.70 L 1.80-2.40 mg/dL Total Bilirubin 0.3 0.2-1.0 mg/dL Aspartate Amino Transf (AST/SGOT) 18 10-37 U/L Alanine Aminotransferase (ALT/SGPT) 20 12-78 U/L Alkaline Phosphatase 53 50-136 U/L Troponin I High Sensitivity 60 4-75 ng/L Total Protein 6.3 6.0-8.3 g/dL Albumin 2.7 L 3.5-5.0 g/dL Procalcitonin 0.28 0.05-0.5 ng/mL Lactic Acid Level 1.6 0.8-2.5 mmol/L Total Creatine Kinase 187 # 21-232 U/L B-Type Natriuretic Peptide 210 H 0-100 pg/mL Coagulation Labs: Test 08/25/24 21:30 Range/Units Prothrombin Time 10.4 9.6-11.6 SEC Prothromb Time International Ratio 0.98 0.85-1.15 Activated Partial Thromboplast Time 28.4 26.3-35.5 SEC DIAGNOSTICS / RADIOLOGY RESULTS: [ ] PLAN NEURO: Minimize central acting medications as possible. Fall Precautions. Well lighted room through the day and minimize interruptions through the night to prevent acute delirium. PULMONARY: Supplemental 02 as needed Titrate Fio2 to keep Spo2 > or = 90% DuoNebs and CPT as needed IS hourly while awake for pulmonary hygiene Out of bed to chair as tolerated CARDIOVASCULAR: Follow hemodynamics. Titrate vasopressor to keep MAP >65 or systolic blood pressure >95mmHg DIPS: [cardene] LINES: [PIV] GI & NUTRITION: Continue nutritional support Aspirations precautions Prokinetic agents and laxatives as needed KIDNEYS & ELECTROLYTES: Strict monitoring of intake and output Daily weights Avoid nephrotoxic agents Monitor electrolytes and replace as needed Goal urine output of 30mL/hr or 0.5mL/kg/hr Urine output: [1470ml] Fluid Balance: [3615ml] ENDOCRINE: Maintain blood glucose between 100-180 at all times. Insulin sliding scale for blood glucose management INFECTIOUS DISEASE: Trend temperature. Pastrana-culture if febrile. Micro: [Blood and urine culture] Antibiotics: [Cefepime and vancomycin] HEMATOLOGY & COAGULATION: Monitor H&H. Keep Hgb > 7 Transfuse 1 unit of PRBC for Hgb < 7 Transfuse 1 pack of platelets of platelets < 20, 000 Watch for any signs and symptoms of bleeding SKIN: Pressure ulcer prevention per facility protocol Rehab: PT/OT Prophylaxis: GI: [protonix] DVT: [heparin] Code Status: Full Resuscitation Disposition: [ICU] Other: Total patient care time exceeds 50 minutes excluding all procedures. Case was discussed and seen with my supervising physician. The above plan was formulated and agreed upon. JORGE VILLANUEVA August 26, 2024 09:43
[2024-08-26] MEDS ORDERED: VANCOMYCIN PROTOCOL PER PHARMACY IV SCH (10:00)
[2024-08-26] MEDS ORDERED: RENAL DOSE IV ONE (10:00)
[2024-08-26] MEDS: ceFEPime HCL 2 GM VIAL IVPB SCH (11:19)
--- NOTE | 2024-08-26 12:01 | NUR ---
[facility] Consult: Patient assessed by wound healing team. See wound assessment. Assessment and recommendations provided to primary nurse. Education provided.
--- NOTE | 2024-08-26 13:18 | NUR ---
WOUND CARE TEAM: WAS JUST AT BEDSIDE TO ASSESS/EVALUATE THE PT. ORDERS TO BE PLACED BY THEM
[2024-08-26] MEDS: VANCOMYCIN 2GM/500 ML BAG 500 ML IV ONE (13:40)
--- NOTE | 2024-08-26 13:46 | NUR ---
PT ELEVATED IN BED A BIT MORE W/ASSIST FROM SARAH ABARCA
--- NOTE | 2024-08-26 13:55 | NUR ---
RENAL SONO TECH CURRENTLY AT BEDSIDE WITH PT
--- NOTE | 2024-08-26 14:05 | NUR ---
[employer] PAINTER 2 D ECHO ABOUT TO BE STARTED
--- NOTE | 2024-08-26 14:38 | HMCIMG ---
Exam Type: US RENAL SONOGRAM Clinical Information: alexy Comparison: None Findings: The kidneys are hyperechoic consistent with renal parenchymal disease. There are no calculi. No hydronephrosis or calculi are seen. No renal masses are seen. There is no evidence of perinephric fluid on either side. No evidence of significant ureteral dilatation is seen. The right kidney measures 9.3 x 3.7 cm. The left kidney measures 10.1 x 4.6 cm. The urinary bladder is normal. No bladder masses, stones, or wall thickening is seen. IMPRESSION: Hyperechoic kidneys consistent with renal parenchymal disease.
[2024-08-26 14:59] LABS: CREATININE,URINE RANDOM 35.79 mg/dL (30-135)
--- NOTE | 2024-08-26 15:57 | NUR ---
DCP: HOME Pt currently lives alone in his home. Pt does not have any insecurities with food, custodial, and/or utilities. Pt uses a walker at home to ambulate. Pt states that he has "two ladies who go to my home to help me out". Pt denies that they are providers however they assist with ADLs, housekeeping, and meals. PCP is Freida Izaguirre and uses [facility] for any RX needs. At [place] pt will return home and family and friends can assist with transportation. Addendum: 08/26/24 at 1600 by KADI CRYSTAL Amended: Links added.
--- NOTE | 2024-08-26 16:34 | HMCSR ---
APPROVED REPORT EXAM: Two-dimensional and M-mode echocardiogram with Doppler and color Doppler. INDICATION ICD: Rule out congestive heart failure 2D Dimensions RVDd4.3 cmLVEF(%)51.5 (>50%)LVED Vol(simp.)136.0 mL IVSd1.2 (0.7-1.1cm)FS(%)27 %LVES Vol(simp.)66.0 mL LVDd5.3 (3.8-5.6cm)LA (2D)3.7 (1.6-4.0cm)LVEF(%, simp.)51 % PWd1.6 (0.7-1.1cm)Ao Root(2D)3.6 (2.0-3.7cm)LA ESV INDEX (BP)36.65 mL/m2 IVSs1.4 cmLVOT diam2.5 (1.8-2.4cm) LVDs3.9 (2.5-4.0cm) PWs1.7 cm Deformation Strain Apical 4-4.4 % Apical 2-8.8 % Apical 3-9.0 % Global Strain-7.4 % M-Mode Dimensions EPSS1.2 cm LA (MM)4.2 (1.6-4.0cm) Ao Root(MM)4.1 (2.0-3.7cm) Aortic Valve AoV Vmax1.6 m/Reva Peak GR10.3 mmHgLVOT Vmax0.8 m/s AoV VTI0.3 mAo Mean GR6.0 mmHgLVOT VTI0.18 m DIONICIO (VMAX)2.53 cm2AVA (VTI) 2.6 cm2 Mitral Valve MV E Vmax97.2 cm/sDECEL Iydy780 ms MV A Vmax68.4 cm/sP 1/2 T52 ms E/A ratio1.4MVA (PHT)4.2 cm2 TDI E/E' [id number]/E' [id number] Medial E' Peak V4.97 cm/sLateral E' Peak V5.50 cm/s Pulmonary Valve PV Vmax0.9 m/sPV VTI0.16 mPV Mean GR1.8 mmHg PV Peak GR3.1 mmHg Tricuspid Valve TR Vmax2.8 m/sRAP (EST) 8 [id number] mmHg TR Peak GR31.2 mmHg Left Ventricle The left ventricle is normal size. There is normal LV segmental wall motion. There is mild left ventr icular wall thickness. LVEF is 50-55%. The LV diastolic function was unable to be assessed due to atr ial arrhythmia. Right Ventricle The right ventricle is normal size. The right ventricular systolic function is normal. Atria The left atrium is mildly dilated. The right atrium is mildly dilated. Aortic Valve Aortic valve is trileaflet and opens well. Mild annular calcification noted. No aortic regurgitation is present. There is no aortic valvular stenosis. Mitral Valve Mitral valve leaflets open well. Mild posterior annular calcification noted. There is trace of ivy l valve regurgitation noted. There is no mitral valve stenosis. Tricuspid Valve The tricuspid valve is normal in structure. There is no tricuspid valve regurgitation noted. Pulmonic Valve Pulmonic valve is not well visualized. There is no pulmonic valvular regurgitation. Great Vessels The aortic root is normal in size. IVC is not well visualized. Pericardium There is no pericardial effusion. Other Information Quality : Technically difficult study due to body habitus Conclusion The left ventricle is normal size. LVEF is 50-55% with normal LV segmental wall motion. There is mild left ventricular wall thickness. The LV diastolic function was unable to be assessed du e to atrial arrhythmia. The right ventricular systolic function is normal. The left atrium is mildly dilated. No hemodynamically significant valvular abnormalities. There is no pericardial effusion.
[2024-08-26] MEDS: MAGNESIUM 2GM PREMIX 50ML 50 ML IV PRN (17:15)
--- NOTE | 2024-08-26 18:44 | NUR ---
PT JUST CHANGED FOR A URINE AND STOOL INCONTINENCE. CREAM APPLIED TO BUTTOCKS PER WOUND CARE INSTRUCTIONS.PT TURNED TO HIS LEFT SIDE
[2024-08-26] MEDS: BALSAM PERU/CASTOR OIL 60 GM TUBE TP SCH (18:48)
--- NOTE | 2024-08-26 19:01 | NUR ---
REPORT ENDORSERD TO SHAWN ABARCA
[2024-08-26] MEDS: BUDESONIDE 0.5 MG/2 ML INH IH SCH (19:23)
[2024-08-26] MEDS: 0.9%NACL 1000ML 1,000 ML IV SCH (21:08)
[2024-08-26] MEDS: tamSULOsin HCL 0.4 MG CAP.ER.24H PO SCH (21:08)
[2024-08-26] MEDS: HEParin 5,000 UNIT VIAL SQ SCH (22:32)
[2024-08-27] VITALS (50 sets, daily range): BP systolic 109–198; BP diastolic 45–93; PULSE 59–93; RESP 15–49; TEMP 97.8–99.1; O2SAT 93–100
--- NOTE | 2024-08-27 04:15 | NUR ---
PATIENT REPORT GIVEN TO DAJA ABARCA
[2024-08-27] MEDS: LAbetaLOL 20MG SYG IV PRN (05:41)
[2024-08-27 05:50] LABS: BASOPHILS # (AUTO) 0.03 K/uL (0.00-0.20); BASOPHILS % (AUTO) 0.3 % (0.0-5.0); EOSINOPHILS # (AUTO) 0.14 K/uL (0.00-0.70); EOSINOPHILS % (AUTO) 1.2 % (0.0-8.0); HEMATOCRIT 25.8 % (42-54); IMMATURE GRANULOCYTE ABSOLUTE 0.08 K/uL (0-1); LYMPHOCYTES # (AUTO) 1.5 K/uL (1.0-4.8); LYMPHOCYTES % (AUTO) 13.1 % (21.0-51.0); MEAN CORPUSCULAR HEMOGLOBIN 31.1 pg (27.0-33.0); MEAN CORPUSCULAR HGB CONC 34.9 g/dL (32.0-36.0); MEAN CORPUSCULAR VOLUME 89.3 fL (79-99); MONOCYTES # (AUTO) 1.2 K/uL (0.1-1.0); MONOCYTES % (AUTO) 10.1 % (3.0-13.0); NEUTROPHILS # (AUTO) 8.8 K/uL (1.8-7.7); NEUTROPHILS % (AUTO) 74.6 % (40.0-77.0); PLATELET COUNT (AUTO) 188 K/uL (130-400); RED BLOOD CELL COUNT(AUTO) 2.89 MIL/uL (4.50-6.20); RED CELL DISTRIBUTION WIDTH 13.9 % (11.0-15.5); WHITE BLOOD COUNT (AUTO) 11.7 K/uL (4.8-10.8)
[2024-08-27 06:43] LABS: ALBUMIN 2.7 g/dL (3.5-5.0); BILIRUBIN,TOTAL 0.3 mg/dL (0.2-1.0); CREATININE 1.9 mg/dL (0.5-1.3); POTASSIUM 3.9 mmol/L (3.5-5.1); TOTAL PROTEIN, SERUM 6.3 g/dL (6.0-8.3)
[2024-08-27] MEDS: nifeDIPine ER 30 MG TAB PO SCH (07:42)
[2024-08-27] MEDS: PANTOPrazole 40 MG/VIAL IVP SCH (07:42)
[2024-08-27] MEDS: monteLUKAST sodIUM 10 MG TAB PO SCH (07:42)
[2024-08-27] MEDS: LoSARTan 50 MG TABLET PO SCH (07:42)
[2024-08-27] MEDS ORDERED: amLODIPine 5 MG TAB PO SCH (09:00)
[2024-08-27] MEDS: hydrALAZine 25MG TABLET PO SCH (09:22)
[2024-08-27] MEDS: VANCOMYCIN 1G/250ML KIT 250 ML IV SCH (12:22)
--- NOTE | 2024-08-27 13:58 | PN ---
[facility] PROGRESS NOTE Date Patient Seen: August 27, 2024 Time of Visit: 13:41 Supervising Physician: [Dr. Conner] Primary Care Physician: [Dr. Freida Izaguirre] Outpatient Specialists: [ ] Inpatient Consults: [ ] PROBLEM LIST: Sepsis secondary to pyelonephritis, improved Acute kidney injury in chronic kidney disease, prerenal, improving Hypertensive urgency, resolved Non-obstructive R-renal pelvic calculus, 7mm with pyelonephritis CAD s/p remote CABG Chronic A-fib on eliquis outpatient PPM/AICD status Sacral ulcer Plan: Wean off Cardene drip as tolerated Continue cefepime and vancomycin Follow blood and urine culture, negative Consult Urology for evaluation Wound care consult for sacral ulcer Follow echocardiogram results Renal ultrasound consistent with renal parenchymal disease Continue Flomax b.i.d. Strain urine DC IVF Monitor labs and vitals Repeat labs in a.m. Further management per hospital course INTERVAL HISTORY: [Patient is evaluated at bedside. He has weaned off Cardene drip since this a.m., has initiated antihypertensive medication by mouth with improvement in blood pressure. He appears edematous to bilateral lower extremities. Admits some nausea but no vomiting, is tolerating clear diet well. He has mild end expiratory wheezing but is saturating well on room air. WBC improved to 11 today, creatinine remains elevated but is improved to 1.9 today. His renal ultrasound is consistent with renal parenchymal disease. FENA labs suggest prerenal KEVIN. His blood and urine cultures remained negative. Patient okay to downgrade to Med/surg.] REVIEW OF SYSTEMS: 12 point ROS reviewed with patient. Pertinent positives mentioned above. Otherwise negative. PHYSICAL EXAM: GENERAL: alert, weak, awake oriented x 3, no acute distress HEENT: EOMI, Sclera non icteric, moist mucosa NECK: Supple, no JVD, trachea midline LUNGS: Clear breath sounds bilaterally. No wheezes, on room air HEART: Regular rate and rhythm. Normal S1 and S2, without murmurs ABD: Abdomen discomfort with palpation. Bowel sounds present, CVA tenderness bilaterally EXT: No clubbing cyanosis or edema NEURO: Alert and oriented to person, follows commands Vital Signs (last 8hr) Date Time Temp Pulse Resp B/P (MAP) Pulse Ox O2 Delivery O2 Flow Rate FiO2 08/27/24 12:30 70 16 131/54 (79) 96 08/27/24 12:15 60 16 109/58 (75) 97 08/27/24 12:13 70 16 131/54 (79) 96 08/27/24 12:00 97 Room Air* 0 21 08/27/24 12:00 98.4 71 16 122/45 (70) 100 08/27/24 12:00 98.4 08/27/24 11:45 69 16 120/54 (76) 98 08/27/24 11:30 69 16 120/54 (76) 98 08/27/24 11:30 71 16 146/57 (86) 97 08/27/24 11:15 71 16 143/60 (87) 99 08/27/24 11:00 74 16 146/52 (83) 94 08/27/24 10:45 71 16 148/64 (92) 94 08/27/24 10:30 74 16 148/57 (87) 96 08/27/24 10:15 67 16 150/68 (95) 95 08/27/24 10:00 67 16 148/64 (92) 96 08/27/24 09:45 73 15 155/68 (97) 97 08/27/24 09:30 80 18 154/63 (93) 97 08/27/24 09:15 66 18 127/73 (91) 99 08/27/24 09:13 70 20 08/27/24 09:00 67 16 151/57 (88) 94 08/27/24 08:45 72 16 162/65 (97) 94 08/27/24 08:30 75 16 154/63 (93) 94 08/27/24 08:15 77 18 149/67 (94) 93 08/27/24 08:00 93 Room Air* 0 21 08/27/24 08:00 99.1 84 16 167/64 (98) 92 21 08/27/24 08:00 99.1 08/27/24 07:45 84 16 170/72 (104) 92 21 08/27/24 07:30 86 16 157/51 (86) 92 21 08/27/24 07:15 91 16 161/70 (100) 95 21 08/27/24 07:00 88 165/59 94 08/27/24 07:00 88 165/59 (94) 94 21 08/27/24 06:46 83 178/83 08/27/24 06:45 91 161/70 95 08/27/24 06:45 91 161/70 (100) 95 21 08/27/24 06:44 91 161/70 95 08/27/24 06:41 82 20 N/A Room Air 21 08/27/24 06:36 86 20 08/27/24 06:30 93 148/93 (111) 97 21 08/27/24 06:30 88 198/66 99 08/27/24 06:15 93 148/93 97 08/27/24 06:00 86 178/68 94 08/27/24 05:45 84 173/76 95 LABS: Hematology Labs: Test 08/27/24 05:29 08/26/24 07:12 Range/Units White Blood Count 11.7 H 4.8-10.8 K/uL Red Blood Count 2.89 L 4.50-6.20 MIL/uL Hemoglobin 9.0 L 14.0-18.0 g/dL Hematocrit 25.8 L 42-54 % Mean Corpuscular Volume 89.3 79-99 fL Mean Corpuscular Hemoglobin 31.1 27.0-33.0 pg Mean Corpuscular Hemoglobin Concent 34.9 32.0-36.0 g/dL Red Cell Distribution Width 13.9 11.0-15.5 % Platelet Count 188 130-400 K/uL Mean Platelet Volume 9.7 7.5-10.5 fL Immature Granulocyte % (Auto) 0.7 0-1 % Neutrophils (%) (Auto) 74.6 40.0-77.0 % Lymphocytes (%) (Auto) 13.1 L 21.0-51.0 % Monocytes (%) (Auto) 10.1 3.0-13.0 % Eosinophils (%) (Auto) 1.2 0.0-8.0 % Basophils (%) (Auto) 0.3 0.0-5.0 % Neutrophils # (Auto) 8.8 H 1.8-7.7 K/uL Lymphocytes # (Auto) 1.5 1.0-4.8 K/uL Monocytes # (Auto) 1.2 H 0.1-1.0 K/uL Eosinophils # (Auto) 0.14 0.00-0.70 K/uL Basophils # (Auto) 0.03 0.00-0.20 K/uL Absolute Immature Granulocyte (auto 0.08 0-1 K/uL Nucleated Red Blood Cells 0.0 0.0-0.19 % White Cell Morphology Comment See comments Chemistry Labs: Test 08/27/24 11:19 08/27/24 05:29 08/26/24 07:12 08/25/24 21:30 Range/Units Whole Blood Glucose 151 H 70-110 MG/DL Sodium Level 132 L 136-145 mmol/L Potassium Level 3.9 3.5-5.1 mmol/L Chloride Level 102 101-111 mmol/L Carbon Dioxide Level 18 L 21-32 mmol/L Blood Urea Nitrogen 44 H 7-18 mg/dL Creatinine 1.9 H 0.5-1.3 mg/dL Glomerular Filtration Rate Calc 35 >90 mL/min Random Glucose 160 H 70-105 mg/dL Total Calcium 8.3 L 8.5-10.1 mg/dL Total Bilirubin 0.3 0.2-1.0 mg/dL Aspartate Amino Transf (AST/SGOT) 23 10-37 U/L Alanine Aminotransferase (ALT/SGPT) 20 12-78 U/L Alkaline Phosphatase 52 50-136 U/L Total Protein 6.3 6.0-8.3 g/dL Albumin 2.7 L 3.5-5.0 g/dL Magnesium Level 1.70 L 1.80-2.40 mg/dL Troponin I High Sensitivity 60 4-75 ng/L Procalcitonin 0.28 0.05-0.5 ng/mL Lactic Acid Level 1.6 0.8-2.5 mmol/L Total Creatine Kinase 187 # 21-232 U/L B-Type Natriuretic Peptide 210 H 0-100 pg/mL Coagulation Labs: Test 08/25/24 21:30 Range/Units Prothrombin Time 10.4 9.6-11.6 SEC Prothromb Time International Ratio 0.98 0.85-1.15 Activated Partial Thromboplast Time 28.4 26.3-35.5 SEC DIAGNOSTICS / RADIOLOGY RESULTS: [ ] PLAN NEURO: Minimize central acting medications as possible. Fall Precautions. Well lighted room through the day and minimize interruptions through the night to prevent acute delirium. PULMONARY: Supplemental 02 as needed Titrate Fio2 to keep Spo2 > or = 90% DuoNebs and CPT as needed IS hourly while awake for pulmonary hygiene Out of bed to chair as tolerated CARDIOVASCULAR: Follow hemodynamics. Titrate vasopressor to keep MAP >65 or systolic blood pressure >95mmHg DIPS: [cardene D/C] LINES: [PIV] GI & NUTRITION: Continue nutritional support Aspirations precautions Prokinetic agents and laxatives as needed KIDNEYS & ELECTROLYTES: Strict monitoring of intake and output Daily weights Avoid nephrotoxic agents Monitor electrolytes and replace as needed Goal urine output of 30mL/hr or 0.5mL/kg/hr Urine output: [1470ml] Fluid Balance: [3615ml] ENDOCRINE: Maintain blood glucose between 100-180 at all times. Insulin sliding scale for blood glucose management INFECTIOUS DISEASE: Trend temperature. Pastrana-culture if febrile. Micro: [Blood and urine culture negative] Antibiotics: [Cefepime and vancomycin] HEMATOLOGY & COAGULATION: Monitor H&H. Keep Hgb > 7 Transfuse 1 unit of PRBC for Hgb < 7 Transfuse 1 pack of platelets of platelets < 20, 000 Watch for any signs and symptoms of bleeding SKIN: Pressure ulcer prevention per facility protocol Rehab: PT/OT Prophylaxis: GI: [protonix] DVT: [heparin] Code Status: Full Resuscitation Disposition: [downgrade to med/surg] Other: Total patient care time exceeds 50 minutes excluding all procedures. Case was discussed and seen with my supervising physician. The above plan was formulated and agreed upon. JORGE VILLANUEVA August 27, 2024 13:58
--- NOTE | 2024-08-27 15:30 | NUR ---
TRANSFER REPORT GIVEN TO WILLIAM ABARCA, PT WILL BE TRANSFERRED TO ROOM 328. PT'S DAUGHTER ERICA CALLED AND NOTIFIED OF TRANSFER.
--- NOTE | 2024-08-27 15:36 | PN ---
[facility] PROGRESS NOTE Date of Service: August 27, 2024 Time of Service: 15:22 SUBJECTIVE: 08/27 Pt seen at bedside, no acute events overnight. Pt weaned off cardene drip, started on PO medications. Will monitor throughout the day and possibly dc tomorrow if BP remains stable REVIEW OF SYSTEMS CONSTITUTIONAL: Denies fevers, chills, or night sweats. No unintentional weight loss reported. NEUROLOGICAL: Denies headache, amaurosis fugax, motor weakness, sensory deficit, vertigo/spinning sensation, gait abnormalities, or tremors. ENT: No hearing loss, otalgia, otorrhea, rhinitis, rhinorrhea, hoarseness, or sore throat. CARDIOVASCULAR: Denies any exertional angina, dyspnea on exertion, orthopnea, paroxysmal nocturnal dyspnea, palpitations, life-threatening arrhythmias, claudi cation. PULMONARY: Denies any shortness of breath, cough, phlegm/sputum, hemoptysis, pleuritic chest pain. SLEEP: Denies morning headaches, daytime somnolence or napping. Denies difficulty falling asleep, staying asleep, waking from sleep. Denies knowledge of snoring. GASTROINTESTINAL: Complaints of diarrhea and abdominal pain Denies any type of dysphagia to either liquids or solids. Denies nausea, vomiting, pyrosis, early satiety, constipation, or changes in stool consistency or caliber. Denies coffee-ground emesis, hematemesis, hematochezia, or melanotic stools. GENITOURINARY: Denies frequency, urgency, nocturia, hematuria or incontinence (Storage/Irritative symptoms.) Low urinary stream, straining to void, urinary intermittency or hesitancy, splitting of the voiding stream, terminal dribbling. ENDOCRINOLOGIC: Denies polyuria, polydipsia, polyphagia or heat/cold intole rances. HEMATOLOGIC: Denies thrombophilia/previous clots, or coagulopathy/bleeding disorders. ONCOLOGIC: Denies personal history of malignancy. DERMATOLOGIC: Denies rashes or pruritus. PSYCHIATRIC: Denies any suicidal or homicidal ideation. Denies hallucinations. PHYSICAL EXAM GENERAL APPEARANCE: The patient is awake, alert, and oriented, in no acute cardiopulmonary distress. NEUROLOGICAL: Cranial nerves II-XII grossly intact. Motor is 5/5 in bilateral upper and lower extremities proximal to distal. No sensory deficits. HEENT: Face is symmetric. Pupils are equal and reactive. Extraocular movements are intact. NECK: Supple. No JVD. No thyromegaly. No submental, submandibular, pre- /postauricular, occipital or supraclavicular lymphadenopathy. CHEST: Normal chest expansion. No Telemetry. LUNGS: Scattered expiratory wheezing on bilateral lung [place] per auscultation Absence of any rales and rhonchi CARDIOVASCULAR: Regular. S1 and S2 normal. No appreciable rubs, murmurs or gallops. ABDOMEN: Abdomen is round firm and distended .There is no rebound, voluntary guarding, or rigidity. : Deferred. No Griffin. EXTREMITIES: Traces of edema to bilateral lower extremities. No clubbing. Good capillary refill. SKIN: No skin breakdown. Vital Signs (last 8hr) Date Time Temp Pulse Resp B/P (MAP) Pulse Ox O2 Delivery O2 Flow Rate FiO2 08/27/24 12:30 70 16 131/54 (79) 96 08/27/24 12:15 60 16 109/58 (75) 97 08/27/24 12:13 70 16 131/54 (79) 96 08/27/24 12:00 97 Room Air* 0 21 08/27/24 12:00 98.4 71 16 122/45 (70) 100 08/27/24 12:00 98.4 08/27/24 11:45 69 16 120/54 (76) 98 08/27/24 11:30 69 16 120/54 (76) 98 08/27/24 11:30 71 16 146/57 (86) 97 08/27/24 11:15 71 16 143/60 (87) 99 08/27/24 11:00 74 16 146/52 (83) 94 08/27/24 10:45 71 16 148/64 (92) 94 08/27/24 10:30 74 16 148/57 (87) 96 08/27/24 10:15 67 16 150/68 (95) 95 08/27/24 10:00 67 16 148/64 (92) 96 08/27/24 09:45 73 15 155/68 (97) 97 08/27/24 09:30 80 18 154/63 (93) 97 08/27/24 09:15 66 18 127/73 (91) 99 08/27/24 09:13 70 20 08/27/24 09:00 67 16 151/57 (88) 94 08/27/24 08:45 72 16 162/65 (97) 94 08/27/24 08:30 75 16 154/63 (93) 94 08/27/24 08:15 77 18 149/67 (94) 93 08/27/24 08:00 93 Room Air* 0 21 08/27/24 08:00 99.1 84 16 167/64 (98) 92 21 08/27/24 08:00 99.1 08/27/24 07:45 84 16 170/72 (104) 92 21 08/27/24 07:30 86 16 157/51 (86) 92 21 LABS: Laboratory: Test 08/27/24 11:19 08/27/24 05:29 08/26/24 07:12 08/25/24 21:43 Range/Units Whole Blood Glucose 151 H 70-110 MG/DL White Blood Count 11.7 H 4.8-10.8 K/uL Red Blood Count 2.89 L 4.50-6.20 MIL/uL Hemoglobin 9.0 L 14.0-18.0 g/dL Hematocrit 25.8 L 42-54 % Mean Corpuscular Volume 89.3 79-99 fL Mean Corpuscular Hemoglobin 31.1 27.0-33.0 pg Mean Corpuscular Hemoglobin Concent 34.9 32.0-36.0 g/dL Red Cell Distribution Width 13.9 11.0-15.5 % Platelet Count 188 130-400 K/uL Mean Platelet Volume 9.7 7.5-10.5 fL Immature Granulocyte % (Auto) 0.7 0-1 % Neutrophils (%) (Auto) 74.6 40.0-77.0 % Lymphocytes (%) (Auto) 13.1 L 21.0-51.0 % Monocytes (%) (Auto) 10.1 3.0-13.0 % Eosinophils (%) (Auto) 1.2 0.0-8.0 % Basophils (%) (Auto) 0.3 0.0-5.0 % Neutrophils # (Auto) 8.8 H 1.8-7.7 K/uL Lymphocytes # (Auto) 1.5 1.0-4.8 K/uL Monocytes # (Auto) 1.2 H 0.1-1.0 K/uL Eosinophils # (Auto) 0.14 0.00-0.70 K/uL Basophils # (Auto) 0.03 0.00-0.20 K/uL Absolute Immature Granulocyte (auto 0.08 0-1 K/uL Nucleated Red Blood Cells 0.0 0.0-0.19 % Sodium Level 132 L 136-145 mmol/L Potassium Level 3.9 3.5-5.1 mmol/L Chloride Level 102 101-111 mmol/L Carbon Dioxide Level 18 L 21-32 mmol/L Blood Urea Nitrogen 44 H 7-18 mg/dL Creatinine 1.9 H 0.5-1.3 mg/dL Glomerular Filtration Rate Calc 35 >90 mL/min Random Glucose 160 H 70-105 mg/dL Total Calcium 8.3 L 8.5-10.1 mg/dL Total Bilirubin 0.3 0.2-1.0 mg/dL Aspartate Amino Transf (AST/SGOT) 23 10-37 U/L Alanine Aminotransferase (ALT/SGPT) 20 12-78 U/L Alkaline Phosphatase 52 50-136 U/L Total Protein 6.3 6.0-8.3 g/dL Albumin 2.7 L 3.5-5.0 g/dL White Cell Morphology Comment See comments Magnesium Level 1.70 L 1.80-2.40 mg/dL Troponin I High Sensitivity 60 4-75 ng/L Procalcitonin 0.28 0.05-0.5 ng/mL Urine Color COLORLESS YELLOW Urine Appearance CLEAR CLEAR Urine pH 6.5 5.0-8.0 Urine Specific [place] 1.007 1.001-1.031 Urine Protein 200 H NEGATIVE mg/dL Urine Glucose (UA) 50 H NEGATIVE mg/dL Urine Ketones NEGATIVE NEGATIVE mg/dL Urine Occult Blood +- (TRACE) H NEGATIVE Urine Nitrate NEGATIVE NEGATIVE Urine Bilirubin NEGATIVE NEGATIVE mg/dL Urine Urobilinogen 0.2 0.2-1.0 mg/dL Urine Leukocyte Esterase NEGATIVE NEGATIVE [place]y/uL Urine RBC 0-1 0-1 /HPF Urine WBC 2-5 H 0-1 /HPF Urine Squamous Epithelial Cells RARE 0-2 /HPF Urine Transitional Epithelial Cells FEW None Seen /HPF Urine Bacteria None None Seen /HPF Urine Hyaline Casts 0-1 0-1 /LPF /LPF Urine Random Creatinine 35.79 30-135 mg/dL Urine Random Sodium 23 L 40-220 mmol/l Test 5/26/25 21:30 08/25/24 21:25 Range/Units Prothrombin Time 10.4 9.6-11.6 SEC Prothromb Time International Ratio 0.98 0.85-1.15 Activated Partial Thromboplast Time 28.4 26.3-35.5 SEC Lactic Acid Level 1.6 0.8-2.5 mmol/L Total Creatine Kinase 187 # 21-232 U/L B-Type Natriuretic Peptide 210 H 0-100 pg/mL Influenza Type A Antigen Negative For Type A NEGATIVE Influenza Type B Antigen Negative For Type B NEGATIVE SARS-CoV-2, RNA, NAAT NEGATIVE SARS CoV-2 NEGATIVE Group A Streptococcus Rapid negative NEGATIVE Current Medications Medications (Trade) Dose Ordered Sig/Abhijit Route PRN Reason Start Time Stop Time Status Last Admin Dose Admin Acetaminophen (TYLenol 325MG TAB) 650 mg Q4H PRN PO MILD PAIN (1-3) 08/26/24 02:00 09/25/24 01:59 Acetaminophen (TYLenol 325MG TAB) 650 mg Q6H PRN PO TEMPERATURE GREATER THAN 101.5 08/26/24 02:00 09/25/24 01:59 Albuterol (DUOneb) 1 udvial [id number] IH 08/26/24 02:00 09/25/24 01:59 08/27/24 09:13 1 UDVIAL Amlodipine Besylate (NorvASC 5MG TAB) 5 mg DAILY PO 08/27/24 09:00 08/27/24 07:12 DC Budesonide (Pulmicort 0.5 Mg/2ml) 0.5 mg BIDRESP IH 08/26/24 18:00 09/25/24 17:59 08/27/24 06:36 0.5 MG Cefepime HCl (MAXipime 2 gm vial) 2 gm Q12H IVPB 08/26/24 10:00 09/05/24 09:59 08/27/24 09:20 2 GM Ceftriaxone Sodium 1 gm/ Sodium Chloride 50 ml @ 100 mls/hr BID IV 08/26/24 09:00 08/26/24 01:51 DC Ceftriaxone Sodium (ROCEphine 1G INJ) 1 gm BID IVPB 08/26/24 09:00 08/26/24 09:43 DC 08/26/24 09:15 1 GM Dextrose (D50w) 50 ml AD PRN IV HYPOGLYCEMIA PROTOCOL 08/26/24 02:00 09/25/24 01:59 Glucagon (Glucagon 1mg Kit) 1 mg AD PRN IM HYPOGLYCEMIA PROTOCOL 08/26/24 02:00 09/25/24 01:59 Heparin Sodium (Porcine) (HEParin 5,000 UNIT VIAL) 5,000 unit Q12H SQ 08/26/24 21:30 09/25/24 21:29 08/27/24 09:21 5,000 UNIT Hydralazine HCl (APRESOLine 20MG INJ) 10 mg Q6H PRN IV For:SBP above 160;DBP above 90 08/26/24 02:00 09/25/24 01:59 08/27/24 04:00 10 MG Hydralazine HCl ([id number] TAB) 25 mg TID PO 08/26/24 09:00 08/27/24 07:12 DC 08/26/24 21:08 25 MG Hydralazine HCl ([id number] TAB) 100 mg TID PO 08/27/24 09:00 09/26/24 08:59 08/27/24 09:22 100 MG Insulin Human Regular (humuLIN R 100 UNIT/ML 3ML) INSULIN SLIDING SCAL... ACHS SQ 08/26/24 07:30 09/25/24 07:29 08/26/24 22:34 2 UNIT Labetalol HCl (TRANdate 20MG SYG) 10 mg Q6H PRN IV IF SBP GREATER THAN 170 08/26/24 02:00 09/25/24 01:59 08/27/24 05:41 10 MG Losartan Potassium (CozAAR 50 mg TAB) 50 mg BID PO 08/27/24 09:00 09/26/24 08:59 08/27/24 07:42 50 MG Magnesium Sulfate 50 ml @ 0 mls/hr PROTOCOL PRN IV OTHER [SEE ORDER COMMENTS] 08/26/24 02:00 09/25/24 01:59 08/26/24 17:15 50 MLS/HR Metoprolol Tartrate (loprESSOR) 100 mg BID PO 08/26/24 09:00 09/25/24 08:59 08/27/24 07:42 100 MG Montelukast Sodium (SinguLAIR) 10 mg DAILY PO 08/27/24 09:00 09/26/24 08:59 08/27/24 07:42 10 MG Morphine Sulfate (morPHINE 2MG SYG) 2 mg Q4H PRN IV MODERATE PAIN (4-6) 08/26/24 02:00 09/02/24 01:59 08/26/24 06:37 2 MG Nicardipine HCl 20 mg/Sodium Chloride 200 ml @ 0 mls/hr AD PRN IV TITRATE 08/26/24 03:00 08/26/24 02:45 DC Nicardipine HCl 25 mg/Sodium Chloride 250 ml @ 0 mls/hr AD PRN IV TITRATE 08/26/24 03:00 09/25/24 02:59 08/27/24 06:46 50 MLS/HR Nifedipine (adALAT 30MG) 60 mg BID PO 08/27/24 09:00 09/26/24 08:59 08/27/24 07:42 60 MG Ondansetron HCl (zoFRAN 4MG INJ) 4 mg Q6H PRN IV NAUSEA/VOMITING 08/26/24 02:00 09/25/24 01:59 Pantoprazole Sodium (PROTonix 40MG INJ) 40 mg DAILY IVP 08/27/24 09:00 09/26/24 08:59 08/27/24 07:42 40 MG Potassium Chloride 100 ml @ 100 mls/hr AD PRN IV POTASSIUM PROTOCOL 08/26/24 02:00 09/25/24 01:59 Potassium Chloride (K-Dur 10meq Sr Tab) 10 meq AD PRN PO POTASSIUM PROTOCOL 08/26/24 18:00 09/25/24 01:59 Potassium Chloride (K-Dur/Klor-Con 20meq) 10 meq AD PRN PO POTASSIUM PROTOCOL 08/26/24 02:00 08/26/24 17:48 DC Potassium Chloride (KCl 10% Elixir 20meq/15ml) 10 meq AD PRN PO POTASSIUM PROTOCOL 08/26/24 02:00 09/25/24 01:59 Sodium Chloride 1,000 ml @ 50 mls/hr Q20H IV 08/26/24 21:00 08/27/24 13:59 DC 08/26/24 21:08 50 MLS/HR Tamsulosin HCl (FloMAX) 0.4 mg BID PO 08/26/24 21:00 09/25/24 20:59 08/27/24 07:42 0.4 MG Vancomycin HCl 250 ml @ 125 mls/hr Q24H IV 08/27/24 12:00 09/06/24 11:59 08/27/24 12:22 125 MLS/HR Vancomycin HCl (Vancomycin Protocol) 1 each AD IV 08/26/24 10:00 09/09/24 09:59 Vitamin B Complex/ Vit C/Folic Acid (Nephrovite Tablet) 1 cap DAILY PO 08/26/24 09:00 09/25/24 08:59 08/27/24 07:42 1 CAP Wound Care/ Dressing Products (Venelex Ointment) 1 APPL TID TP 08/26/24 21:00 09/25/24 20:59 08/27/24 15:13 1 GM DIAGNOSTICS / RADIOLOGY: [ ] ASSESSMENT: Sepsis POA Possible pyelonephritis POA Acute kidney injury POA Kidney stone POA Hypertensive urgency POA Acute normocytic normochromic anemia POA Acute leukocytosis POA CHF POA Debility POA Diabetes POA Hyponatremia POA Dehydration POA Hyperlipidemia POA 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
[2024-08-27] MEDS: furoSEMIDE 40MG VIAL IV ONE (17:38)
[2024-08-27] MEDS: Solu-medROL 40MG VIAL IVP SCH (21:50)
[2024-08-28] VITALS (16 sets, daily range): BP systolic 104–166; BP diastolic 48–99; PULSE 56–95; RESP 18–24; TEMP 97.4–98.7; O2SAT 94–98
[2024-08-28 03:58] LABS: BASOPHILS # (AUTO) 0.02 K/uL (0.00-0.20); BASOPHILS % (AUTO) 0.2 % (0.0-5.0); EOSINOPHILS # (AUTO) 0.01 K/uL (0.00-0.70); EOSINOPHILS % (AUTO) 0.1 % (0.0-8.0); HEMATOCRIT 25.8 % (42-54); IMMATURE GRANULOCYTE ABSOLUTE 0.08 K/uL (0-1); LYMPHOCYTES # (AUTO) 0.5 K/uL (1.0-4.8); LYMPHOCYTES % (AUTO) 5.1 % (21.0-51.0); MEAN CORPUSCULAR HEMOGLOBIN 30.2 pg (27.0-33.0); MEAN CORPUSCULAR HGB CONC 32.9 g/dL (32.0-36.0); MEAN CORPUSCULAR VOLUME 91.8 fL (79-99); MONOCYTES # (AUTO) 0.2 K/uL (0.1-1.0); MONOCYTES % (AUTO) 1.6 % (3.0-13.0); NEUTROPHILS # (AUTO) 9.5 K/uL (1.8-7.7); NEUTROPHILS % (AUTO) 92.2 % (40.0-77.0); PLATELET COUNT (AUTO) 187 K/uL (130-400); RED BLOOD CELL COUNT(AUTO) 2.81 MIL/uL (4.50-6.20); RED CELL DISTRIBUTION WIDTH 13.8 % (11.0-15.5); WHITE BLOOD COUNT (AUTO) 10.3 K/uL (4.8-10.8)
[2024-08-28 04:19] LABS: CREATININE 2.3 mg/dL (0.5-1.3); MAGNESIUM 2.5 mg/dL (1.80-2.40); PHOSPHORUS 4.6 mg/dL (2.5-4.9)
[2024-08-28] MEDS: nifeDIPine ER 30 MG TAB PO SCH (09:00)
[2024-08-28] MEDS: hydrALAZine 25MG TABLET PO SCH ×2 (09:00→14:41)
--- NOTE | 2024-08-28 09:45 | NUR ---
NOTE HELD PT BP MEDS ADALAT, APRESOLINE, AND COZAAR FOR BP OF 124/62.
--- NOTE | 2024-08-28 10:42 | PN ---
[facility] PROGRESS NOTE Date Patient Seen: August 28, 2024 Time of Visit: 10:42 Supervising Physician: [Dr. Lambert] Primary Care Physician: [Dr. Freida Izaguirre] Outpatient Specialists: [ ] Inpatient Consults: [ ] PROBLEM LIST: Sepsis secondary to pyelonephritis, improved Acute kidney injury in chronic kidney disease, prerenal, improving Metabolic acidosis with incomplete respiratory compensation Acute delirium, not POA, mild Hypertensive urgency, resolved Non-obstructive R-renal pelvic calculus, 7mm per CT abdomen, no calculi per renal U/S CAD s/p remote CABG Chronic A-fib on eliquis outpatient PPM/AICD status Sacral ulcer Plan: Continue oral antihypertensives, monitor BP Start sodium bicarb Continue IV solumedrol Continue cefepime and vancomycin Blood and urine culture negative Supplemental oxygen as needed Wound care consult for sacral ulcer Follow echocardiogram results Renal ultrasound consistent with renal parenchymal disease Continue Flomax b.i.d. Strain urine DC IVF Monitor labs and vitals Repeat labs in a.m. Further management per hospital course INTERVAL HISTORY: [Patient is evaluated at bedside. He has weaned off Cardene drip since this a.m., has initiated antihypertensive medication by mouth with improvement in blood pressure. He appears edematous to bilateral lower extremities. Admits some nausea but no vomiting, is tolerating clear diet well. He has mild end expiratory wheezing but is saturating well on room air. WBC improved to 11 today, creatinine remains elevated but is improved to 1.9 today. His renal ultrasound is consistent with renal parenchymal disease. FENA labs suggest prerenal KEVIN. His blood and urine cultures remained negative. Patient okay to downgrade to Med/surg.] 08/28 patient is evaluated at bedside. His white count is downtrending, continues on IV antibiotics. No fever noted overnight. Blood and urine cultures are negative. He was given a dose of Lasix yesterday, and initiated on oral antihypertensive with improvement of blood pressure. His blood pressure was soft this morning with some BP meds held for the same. Renal ultrasound shows no calculi. Per nurse, patient appeared somewhat confused and combative this morning but has since improved. Daughter at bedside states patient normally at this way whenever he is admitted into the hospital. Ammonia lab drawn was within normal limits. ABG was requested which revealed mild metabolic acidosis with incomplete respiratory compensation. REVIEW OF SYSTEMS: 12 point ROS reviewed with patient. Pertinent positives mentioned above. Otherwise negative. PHYSICAL EXAM: GENERAL: alert, weak, awake oriented x 3, no acute distress HEENT: EOMI, Sclera non icteric, moist mucosa NECK: Supple, no JVD, trachea midline LUNGS: Clear breath sounds bilaterally. bilateral end-expiratory wheezing, on 3LNC HEART: Regular rate and rhythm. Normal S1 and S2, without murmurs ABD: Abdomen discomfort with palpation. Bowel sounds present, CVA tenderness bilaterally EXT: No clubbing cyanosis or edema NEURO: Alert and oriented to person, follows commands Vital Signs (last 8hr) Date Time Temp Pulse Resp B/P (MAP) Pulse Ox O2 Delivery O2 Flow Rate FiO2 08/28/24 07:51 98.2 95 18 124/62 94 Nasal Cannula 2.0 08/28/24 06:45 83 24 N/Cannula Low lpm 22.0 08/28/24 06:44 83 24 08/28/24 04:00 98.1 80 20 132/61 92 Room Air LABS: Hematology Labs: Test 08/28/24 03:45 Range/Units White Blood Count 10.3 4.8-10.8 K/uL Red Blood Count 2.81 L 4.50-6.20 MIL/uL Hemoglobin 8.5 L 14.0-18.0 g/dL Hematocrit 25.8 L 42-54 % Mean Corpuscular Volume 91.8 79-99 fL Mean Corpuscular Hemoglobin 30.2 27.0-33.0 pg Mean Corpuscular Hemoglobin Concent 32.9 32.0-36.0 g/dL Red Cell Distribution Width 13.8 11.0-15.5 % Platelet Count 187 130-400 K/uL Mean Platelet Volume 9.9 7.5-10.5 fL Immature Granulocyte % (Auto) 0.8 0-1 % Neutrophils (%) (Auto) 92.2 H 40.0-77.0 % Lymphocytes (%) (Auto) 5.1 L 21.0-51.0 % Monocytes (%) (Auto) 1.6 L 3.0-13.0 % Eosinophils (%) (Auto) 0.1 0.0-8.0 % Basophils (%) (Auto) 0.2 0.0-5.0 % Neutrophils # (Auto) 9.5 H 1.8-7.7 K/uL Lymphocytes # (Auto) 0.5 L 1.0-4.8 K/uL Monocytes # (Auto) 0.2 0.1-1.0 K/uL Eosinophils # (Auto) 0.01 0.00-0.70 K/uL Basophils # (Auto) 0.02 0.00-0.20 K/uL Absolute Immature Granulocyte (auto 0.08 0-1 K/uL Nucleated Red Blood Cells 0.0 0.0-0.19 % Chemistry Labs: Test 08/28/24 05:17 08/28/24 03:45 08/27/24 05:29 Range/Units Whole Blood Glucose 211 H 70-110 MG/DL Sodium Level 132 L 136-145 mmol/L Potassium Level 4.0 3.5-5.1 mmol/L Chloride Level 100 L 101-111 mmol/L Carbon Dioxide Level 17 L 21-32 mmol/L Blood Urea Nitrogen 53 H 7-18 mg/dL Creatinine 2.3 H 0.5-1.3 mg/dL Glomerular Filtration Rate Calc 28 >90 mL/min Random Glucose 215 H 70-105 mg/dL Total Calcium 8.1 L 8.5-10.1 mg/dL Phosphorus Level 4.6 2.5-4.9 mg/dL Magnesium Level 2.50 H 1.80-2.40 mg/dL Total Bilirubin 0.3 0.2-1.0 mg/dL Aspartate Amino Transf (AST/SGOT) 23 10-37 U/L Alanine Aminotransferase (ALT/SGPT) 20 12-78 U/L Alkaline Phosphatase 52 50-136 U/L Total Protein 6.3 6.0-8.3 g/dL Albumin 2.7 L 3.5-5.0 g/dL DIAGNOSTICS / RADIOLOGY RESULTS: [ ] PLAN NEURO: Minimize central acting medications as possible. Maintain fall precautions, adequate lighting during the day PULMONARY: Supplemental 02 as needed. Maintain aspiration precautions at all times CARDIOVASCULAR: Follow hemodynamics. Vital signs per facility protocol GI & NUTRITION: Continue with nutritional support. Continue stool softeners and laxatives as needed. KIDNEYS & ELECTROLYTES: Strict monitoring of intake, output and overall fluid balance. Avoid nephrotoxic medications to the extent possible. Medications to be dosed according to renal function. Monitor electrolytes and replace as needed ENDOCRINE: Maintain blood glucose between 100-180 at all times. Hypoglycemia protocol in place INFECTIOUS DISEASE: Trend temperature, WBC and procalcitonin level Follow cultures, deescalate antibiotics as soon as possible. Panculture if new onset fever ONCOLOGY/HEMATOLOGY/COAGULATION: Monitor for s/s of bleeding Monitor hemoglobin, coagulation studies as needed SKIN: Pressure ulcer prevention per facility protocol Specialty mattress ORTHO/REHAB: Continue PT/OT Prophylaxis: Continue GI and DVT prophylaxis Code Status: Full Resuscitation Disposition: TBD Other: Total patient care time exceeds 35 minutes excluding all procedures. JORGE VILLANUEVA August 28, 2024 10:42
--- NOTE | 2024-08-28 11:33 | NUR ---
ALMA PATEL NP ROUNDED AT BEDSIDE. SPOKE WITH DAUGHTER, ERICA, AT BEDSIDE REGARDING PATIENT'S CARE AND PLAN. ALL QUESTIONS ANSWERED AND VOICED UNDERSTANDING. ORDERS FOR BP MED ADJUSTMENTS GIVEN. TORB FOR CXR, ABG AND AMMONIA LEVELS TO BE TAKEN. ORDERS PLACED AND CARRIED OUT. WILL CONTINUE TO MONITOR.
[2024-08-28 12:14] LABS: ABG BASE EXCESS -9.3 mmol/L (-2.0-3.0); ABG HCO3 14.8 mmol/L (21.0-28.0); ABG OXYGEN SATURATION 95.3 % (94.0-98.0); ABG PCO2 28 mmHg (35-48); ABG PH 7.339 (7.350-7.450); PO2, ARTERIAL BG 79.5 mmHg (83.0-108.0); VENT MODE, BG NC (ROOM AIR)
--- NOTE | 2024-08-28 12:26 | HMCIMG ---
CHEST 1VW HISTORY: Shortness of breath COMPARISON: 08/25/2024 FINDINGS: A frontal projection of the chest was obtained. No acute pulmonary infiltrates is seen. The heart is enlarged. Pacemaker is seen entering from the left. No evidence of aortic calcification is seen. IMPRESSION: 1. No acute pulmonary infiltrate is seen.
--- NOTE | 2024-08-28 12:30 | PN ---
[facility] PROGRESS NOTE Date of Service: August 28, 2024 Time of Service: 12:01 SUBJECTIVE: 08/27 Pt seen at bedside, no acute events overnight. Pt weaned off cardene drip, started on PO medications. Will monitor throughout the day and possibly dc tomorrow if BP remains stable 08/28 Pt seen at bedside, no acute events overnight. Pt blood pressure well controlled however he has significant wheeze, rhoncous breathing and cough. Will continue with nebulizers and systemic steroid treatment. CO2 low, will order ABG and follow up. Pt mildly delirius today but responds appropriately REVIEW OF SYSTEMS 12 point ROS negative unless noted in HPI PHYSICAL EXAM GENERAL APPEARANCE: The patient is awake, alert, and oriented, in no acute cardiopulmonary distress. NEUROLOGICAL: Cranial nerves II-XII grossly intact. Motor is 5/5 in bilateral upper and lower extremities proximal to distal. No sensory deficits. HEENT: Face is symmetric. Pupils are equal and reactive. Extraocular movements are intact. NECK: Supple. No JVD. No thyromegaly. No submental, submandibular, pre-/postauricular, occipital or supraclavicular lymphadenopathy. CHEST: Normal chest expansion. No Telemetry. LUNGS: Scattered expiratory wheezing on bilateral lung [place] per auscultation Absence of any rales and rhonchi CARDIOVASCULAR: Regular. S1 and S2 normal. No appreciable rubs, murmurs or gallops. ABDOMEN: Abdomen is round firm and distended .There is no rebound, voluntary guarding, or rigidity. : Deferred. No Griffin. EXTREMITIES: Traces of edema to bilateral lower extremities. No clubbing. Good capillary refill. SKIN: No skin breakdown. Vital Signs (last 8hr) Date Time Temp Pulse Resp B/P (MAP) Pulse Ox O2 Delivery O2 Flow Rate FiO2 08/28/24 11:24 98.8 88 18 137/99 92 Nasal Cannula 3.0 08/28/24 10:46 88 24 08/28/24 07:51 98.2 95 18 124/62 94 Nasal Cannula 2.0 08/28/24 06:45 83 24 N/Cannula Low lpm 22.0 08/28/24 06:44 83 24 LABS: Laboratory: Test 08/28/24 10:41 08/28/24 03:45 08/27/24 05:29 Range/Units Whole Blood Glucose 210 H 70-110 MG/DL White Blood Count 10.3 4.8-10.8 K/uL Red Blood Count 2.81 L 4.50-6.20 MIL/uL Hemoglobin 8.5 L 14.0-18.0 g/dL Hematocrit 25.8 L 42-54 % Mean Corpuscular Volume 91.8 79-99 fL Mean Corpuscular Hemoglobin 30.2 27.0-33.0 pg Mean Corpuscular Hemoglobin Concent 32.9 32.0-36.0 g/dL Red Cell Distribution Width 13.8 11.0-15.5 % Platelet Count 187 130-400 K/uL Mean Platelet Volume 9.9 7.5-10.5 fL Immature Granulocyte % (Auto) 0.8 0-1 % Neutrophils (%) (Auto) 92.2 H 40.0-77.0 % Lymphocytes (%) (Auto) 5.1 L 21.0-51.0 % Monocytes (%) (Auto) 1.6 L 3.0-13.0 % Eosinophils (%) (Auto) 0.1 0.0-8.0 % Basophils (%) (Auto) 0.2 0.0-5.0 % Neutrophils # (Auto) 9.5 H 1.8-7.7 K/uL Lymphocytes # (Auto) 0.5 L 1.0-4.8 K/uL Monocytes # (Auto) 0.2 0.1-1.0 K/uL Eosinophils # (Auto) 0.01 0.00-0.70 K/uL Basophils # (Auto) 0.02 0.00-0.20 K/uL Absolute Immature Granulocyte (auto 0.08 0-1 K/uL Nucleated Red Blood Cells 0.0 0.0-0.19 % Sodium Level 132 L 136-145 mmol/L Potassium Level 4.0 3.5-5.1 mmol/L Chloride Level 100 L 101-111 mmol/L Carbon Dioxide Level 17 L 21-32 mmol/L Blood Urea Nitrogen 53 H 7-18 mg/dL Creatinine 2.3 H 0.5-1.3 mg/dL Glomerular Filtration Rate Calc 28 >90 mL/min Random Glucose 215 H 70-105 mg/dL Total Calcium 8.1 L 8.5-10.1 mg/dL Phosphorus Level 4.6 2.5-4.9 mg/dL Magnesium Level 2.50 H 1.80-2.40 mg/dL Total Bilirubin 0.3 0.2-1.0 mg/dL Aspartate Amino Transf (AST/SGOT) 23 10-37 U/L Alanine Aminotransferase (ALT/SGPT) 20 12-78 U/L Alkaline Phosphatase 52 50-136 U/L Total Protein 6.3 6.0-8.3 g/dL Albumin 2.7 L 3.5-5.0 g/dL Current Medications Medications (Trade) Dose Ordered Sig/Abhijit Route PRN Reason Start Time Stop Time Status Last Admin Dose Admin Acetaminophen (TYLenol 325MG TAB) 650 mg Q4H PRN PO MILD PAIN (1-3) 08/26/24 02:00 09/25/24 01:59 Acetaminophen (TYLenol 325MG TAB) 650 mg Q6H PRN PO TEMPERATURE GREATER THAN 101.5 08/26/24 02:00 09/25/24 01:59 Albuterol (DUOneb) 1 udvial [id number] IH 08/26/24 02:00 09/25/24 01:59 08/28/24 10:42 1 UDVIAL Amlodipine Besylate (NorvASC 5MG TAB) 5 mg DAILY PO 08/27/24 09:00 08/27/24 07:12 DC Budesonide (Pulmicort 0.5 Mg/2ml) 0.5 mg BIDRESP IH 08/26/24 18:00 09/25/24 17:59 08/28/24 06:38 0.5 MG Cefepime HCl (MAXipime 2 gm vial) 2 gm Q12H IVPB 08/26/24 10:00 09/05/24 09:59 08/28/24 09:24 2 GM Ceftriaxone Sodium 1 gm/ Sodium Chloride 50 ml @ 100 mls/hr BID IV 08/26/24 09:00 08/26/24 01:51 DC Ceftriaxone Sodium (ROCEphine 1G INJ) 1 gm BID IVPB 08/26/24 09:00 08/26/24 09:43 DC 08/26/24 09:15 1 GM Dextrose (D50w) 50 ml AD PRN IV HYPOGLYCEMIA PROTOCOL 08/26/24 02:00 09/25/24 01:59 Glucagon (Glucagon 1mg Kit) 1 mg AD PRN IM HYPOGLYCEMIA PROTOCOL 08/26/24 02:00 09/25/24 01:59 Heparin Sodium (Porcine) (HEParin 5,000 UNIT VIAL) 5,000 unit Q12H SQ 08/26/24 21:30 09/25/24 21:29 08/28/24 09:26 5,000 UNIT Hydralazine HCl (APRESOLine 20MG INJ) 10 mg Q6H PRN IV For:SBP above 160;DBP above 90 08/26/24 02:00 09/25/24 01:59 08/27/24 04:00 10 MG Hydralazine HCl ([id number] TAB) 25 mg TID PO 08/26/24 09:00 08/27/24 07:12 DC 08/26/24 21:08 25 MG Hydralazine HCl ([id number] TAB) 50 mg TID PO 08/28/24 09:00 08/28/24 11:31 DC Hydralazine HCl ([id number] TAB) 100 mg TID PO 08/27/24 09:00 08/28/24 07:38 DC 08/27/24 09:22 100 MG Hydrochlorothiazide (hydroCHLOROthiazide 25MG) 25 mg DAILY PO 08/29/24 09:00 09/28/24 08:59 Insulin Human Regular (humuLIN R 100 UNIT/ML 3ML) INSULIN SLIDING SCAL... ACHS SQ 08/26/24 07:30 09/25/24 07:29 08/28/24 11:29 3 UNIT Labetalol HCl (TRANdate 20MG SYG) 10 mg Q6H PRN IV IF SBP GREATER THAN 170 08/26/24 02:00 09/25/24 01:59 08/27/24 05:41 10 MG Losartan Potassium (CozAAR 50 mg TAB) 50 mg BID PO 08/27/24 09:00 09/26/24 08:59 08/27/24 20:32 50 MG Magnesium Sulfate 50 ml @ 0 mls/hr PROTOCOL PRN IV OTHER [SEE ORDER COMMENTS] 08/26/24 02:00 09/25/24 01:59 08/26/24 17:15 50 MLS/HR Methylprednisolone Sodium Succinate (Solu-medROL 40MG) 20 mg Q8H IVP 08/29/24 06:00 09/28/24 05:59 Methylprednisolone Sodium Succinate (Solu-medROL 40MG) 40 mg BID IVP 08/27/24 21:00 08/28/24 20:59 08/28/24 09:24 40 MG Metoprolol Tartrate (loprESSOR) 100 mg BID PO 08/26/24 09:00 09/25/24 08:59 08/28/24 09:24 100 MG Montelukast Sodium (SinguLAIR) 10 mg DAILY PO 08/27/24 09:00 09/26/24 08:59 08/28/24 09:24 10 MG Morphine Sulfate (morPHINE 2MG SYG) 2 mg Q4H PRN IV MODERATE PAIN (4-6) 08/26/24 02:00 09/02/24 01:59 08/26/24 06:37 2 MG Nicardipine HCl 20 mg/Sodium Chloride 200 ml @ 0 mls/hr AD PRN IV TITRATE 08/26/24 03:00 08/26/24 02:45 DC Nicardipine HCl 25 mg/Sodium Chloride 250 ml @ 0 mls/hr AD PRN IV TITRATE 08/26/24 03:00 08/27/24 18:03 DC 08/27/24 06:46 50 MLS/HR Nifedipine (adALAT 30MG) 30 mg BID PO 08/28/24 09:00 09/27/24 08:59 Nifedipine (adALAT 30MG) 60 mg BID PO 08/27/24 09:00 08/28/24 07:38 DC 08/27/24 07:42 60 MG Ondansetron HCl (zoFRAN 4MG INJ) 4 mg Q6H PRN IV NAUSEA/VOMITING 08/26/24 02:00 09/25/24 01:59 Pantoprazole Sodium (PROTonix 40MG INJ) 40 mg DAILY IVP 08/27/24 09:00 09/26/24 08:59 08/28/24 09:24 40 MG Potassium Chloride 100 ml @ 100 mls/hr AD PRN IV POTASSIUM PROTOCOL 08/26/24 02:00 09/25/24 01:59 Potassium Chloride (K-Dur 10meq Sr Tab) 10 meq AD PRN PO POTASSIUM PROTOCOL 08/26/24 18:00 09/25/24 01:59 Potassium Chloride (K-Dur/Klor-Con 20meq) 10 meq AD PRN PO POTASSIUM PROTOCOL 08/26/24 02:00 08/26/24 17:48 DC Potassium Chloride (KCl 10% Elixir 20meq/15ml) 10 meq AD PRN PO POTASSIUM PROTOCOL 08/26/24 02:00 09/25/24 01:59 Sodium Chloride 1,000 ml @ 50 mls/hr Q20H IV 08/26/24 21:00 08/27/24 13:59 DC 08/26/24 21:08 50 MLS/HR Tamsulosin HCl (FloMAX) 0.4 mg BID PO 08/26/24 21:00 09/25/24 20:59 08/28/24 09:24 0.4 MG Vancomycin HCl 250 ml @ 125 mls/hr Q24H IV 08/27/24 12:00 09/06/24 11:59 08/28/24 11:27 125 MLS/HR Vancomycin HCl (Vancomycin Protocol) 1 each AD IV 08/26/24 10:00 09/09/24 09:59 Vitamin B Complex/ Vit C/Folic Acid (Nephrovite Tablet) 1 cap DAILY PO 08/26/24 09:00 09/25/24 08:59 08/28/24 09:26 1 CAP Wound Care/ Dressing Products (Venelex Ointment) 1 APPL TID TP 08/26/24 21:00 09/25/24 20:59 08/28/24 09:25 1 GM DIAGNOSTICS / RADIOLOGY: [ ] ASSESSMENT: Sepsis POA Possible pyelonephritis POA Acute kidney injury POA Kidney stone POA Hypertensive urgency POA Acute normocytic normochromic anemia POA Acute leukocytosis POA CHF POA Debility POA Diabetes POA Hyponatremia POA Dehydration POA Hyperlipidemia POA 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
[2024-08-28] MEDS: SODIUM BICARBONATE 650 MG TAB PO SCH (14:40)
[2024-08-28] MEDS: SODIUM BICARB 50MEQ 50ML VIAL IV ONE (14:40)
[2024-08-28] MEDS: Solu-medROL 40MG VIAL IVP SCH (22:30)
[2024-08-29] VITALS (17 sets, daily range): BP systolic 116–158; BP diastolic 51–79; PULSE 64–92; RESP 17–24; TEMP 97.4–97.8; O2SAT 94–97
[2024-08-29 03:51] LABS: BASOPHILS # (AUTO) 0.01 K/uL (0.00-0.20); BASOPHILS % (AUTO) 0.1 % (0.0-5.0); HEMATOCRIT 23.8 % (42-54); IMMATURE GRANULOCYTE ABSOLUTE 0.12 K/uL (0-1); LYMPHOCYTES # (AUTO) 0.5 K/uL (1.0-4.8); LYMPHOCYTES % (AUTO) 4.6 % (21.0-51.0); MEAN CORPUSCULAR HEMOGLOBIN 31.1 pg (27.0-33.0); MEAN CORPUSCULAR HGB CONC 34.5 g/dL (32.0-36.0); MEAN CORPUSCULAR VOLUME 90.2 fL (79-99); MONOCYTES # (AUTO) 0.8 K/uL (0.1-1.0); NEUTROPHILS # (AUTO) 9.3 K/uL (1.8-7.7); NEUTROPHILS % (AUTO) 87.2 % (40.0-77.0); PLATELET COUNT (AUTO) 213 K/uL (130-400); RED BLOOD CELL COUNT(AUTO) 2.64 MIL/uL (4.50-6.20); RED CELL DISTRIBUTION WIDTH 13.8 % (11.0-15.5); WHITE BLOOD COUNT (AUTO) 10.7 K/uL (4.8-10.8)
[2024-08-29 03:59] LABS: CREATININE 2.8 mg/dL (0.5-1.3); POTASSIUM 3.6 mmol/L (3.5-5.1)
[2024-08-29] MEDS: INSULIN GLARgine 100 UNITS/ML 10 ML VIAL SQ SCH (07:41)
[2024-08-29] MEDS ORDERED: hydroCHLOROthiazide 25 MG TABLET PO SCH (09:00)
[2024-08-29] MEDS: PoTASSium chloRIDE 10MEQ SR 10 MEQ/TAB TAB.SR.24H PO PRN (09:58)
--- NOTE | 2024-08-29 11:08 | NUR ---
DIANN CALLED TO VERIFY DISCONTINUATION OF VANCO AND CEFEPIME. HE STATED HE DC'D. Addendum: 08/29/24 at 1109 by PAIGE EATON LVN LVN Amended: Links added.
--- NOTE | 2024-08-29 13:47 | PN ---
[facility] PROGRESS NOTE Date Patient Seen: August 29, 2024 Time of Visit: 13:47 Supervising Physician: [Dr. Lambert] Primary Care Physician: [Dr. Freida Izaguirre] Outpatient Specialists: [ ] Inpatient Consults: [ ] PROBLEM LIST: Sepsis secondary to pyelonephritis, improved Acute kidney injury in chronic kidney disease, prerenal, improving Metabolic acidosis with incomplete respiratory compensation Acute delirium, not POA, mild Hypertensive urgency, resolved Non-obstructive R-renal pelvic calculus, 7mm per CT abdomen, no calculi per renal U/S CAD s/p remote CABG Chronic A-fib on eliquis outpatient PPM/AICD status Sacral ulcer Plan: Continue oral antihypertensives, monitor BP Continue IV solumedrol Discontinue cefepime and vancomycin Blood and urine culture negative Supplemental oxygen as needed, wean off as tolerated Wound care consult for sacral ulcer Follow echocardiogram results Renal ultrasound consistent with renal parenchymal disease Continue Flomax b.i.d. DC IVF Monitor labs and vitals Repeat labs in a.m. 6min walk prior to DC Further management per hospital course INTERVAL HISTORY: [Patient is evaluated at bedside. He has weaned off Cardene drip since this a.m., has initiated antihypertensive medication by mouth with improvement in blood pressure. He appears edematous to bilateral lower extremities. Admits some nausea but no vomiting, is tolerating clear diet well. He has mild end exp iratory wheezing but is saturating well on room air. WBC improved to 11 today, creatinine remains elevated but is improved to 1.9 today. His renal ultrasound is consistent with renal parenchymal disease. FENA labs suggest prerenal KEVIN. His blood and urine cultures remained negative. Patient okay to downgrade to Med/surg.] 08/28 patient is evaluated at bedside. His white count is downtrending, continues on IV antibiotics. No fever noted overnight. Blood and urine cultures are negative. He was given a dose of Lasix yesterday, and initiated on oral antihypertensive with improvement of blood pressure. His blood pressure was soft this morning with some BP meds held for the same. Renal ultrasound shows no calculi. Per nurse, patient appeared somewhat confused and combative this morning but has since improved. Daughter at bedside states patient normally at this way whenever he is admitted into the hospital. Ammonia lab drawn was within normal limits. ABG was requested which revealed mild metabolic acidosis with incomplete respiratory compensation. 08/29 Patient is evaluated at bedside. He continues with end-expiratory wheezing bilaterally. He denies a hx of COPD or smoking. Has never seen a object oriented programmer outpatient. His antibiotics were discontinued. Blood and urine cultures remain negative. Echocardiogram is within normal limits with EF of 50-55%. REVIEW OF SYSTEMS: 12 point ROS reviewed with patient. Pertinent positives mentioned above. Otherwise negative. PHYSICAL EXAM: GENERAL: alert, weak, awake oriented x 3, no acute distress HEENT: EOMI, Sclera non icteric, moist mucosa NECK: Supple, no JVD, trachea midline LUNGS: Clear breath sounds bilaterally. bilateral end-expiratory wheezing, on 3LNC HEART: Regular rate and rhythm. Normal S1 and S2, without murmurs ABD: Abdomen discomfort with palpation. Bowel sounds present, CVA tenderness bilaterally EXT: No clubbing cyanosis or edema NEURO: Alert and oriented to person, follows commands Vital Signs (last 8hr) Date Time Temp Pulse Resp B/P (MAP) Pulse Ox O2 Delivery O2 Flow Rate FiO2 08/29/24 11:55 97.5 75 17 144/79 96 Nasal Cannula 3.0 08/29/24 10:41 78 22 08/29/24 08:00 97.5 79 17 149/55 96 Nasal Cannula 3.0 08/29/24 06:51 76 24 N/Cannula Low lpm 3.0 32 08/29/24 06:49 76 22 LABS: Hematology Labs: Test 08/29/24 03:28 Range/Units White Blood Count 10.7 4.8-10.8 K/uL Red Blood Count 2.64 L 4.50-6.20 MIL/uL Hemoglobin 8.2 L 14.0-18.0 g/dL Hematocrit 23.8 L 42-54 % Mean Corpuscular Volume 90.2 79-99 fL Mean Corpuscular Hemoglobin 31.1 27.0-33.0 pg Mean Corpuscular Hemoglobin Concent 34.5 32.0-36.0 g/dL Red Cell Distribution Width 13.8 11.0-15.5 % Platelet Count 213 130-400 K/uL Mean Platelet Volume 9.5 7.5-10.5 fL Immature Granulocyte % (Auto) 1.1 H 0-1 % Neutrophils (%) (Auto) 87.2 H 40.0-77.0 % Lymphocytes (%) (Auto) 4.6 L 21.0-51.0 % Monocytes (%) (Auto) 7.0 3.0-13.0 % Eosinophils (%) (Auto) 0.0 0.0-8.0 % Basophils (%) (Auto) 0.1 0.0-5.0 % Neutrophils # (Auto) 9.3 H 1.8-7.7 K/uL Lymphocytes # (Auto) 0.5 L 1.0-4.8 K/uL Monocytes # (Auto) 0.8 0.1-1.0 K/uL Eosinophils # (Auto) 0.00 0.00-0.70 K/uL Basophils # (Auto) 0.01 0.00-0.20 K/uL Absolute Immature Granulocyte (auto 0.12 0-1 K/uL Nucleated Red Blood Cells 0.0 0.0-0.19 % Chemistry Labs: Test 08/29/24 11:33 08/29/24 03:28 08/28/24 11:49 08/28/24 03:45 Range/Units Whole Blood Glucose 195 H 70-110 MG/DL Sodium Level 132 L 136-145 mmol/L Potassium Level 3.6 3.5-5.1 mmol/L Chloride Level 99 L 101-111 mmol/L Carbon Dioxide Level 20 L 21-32 mmol/L Blood Urea Nitrogen 67 H 7-18 mg/dL Creatinine 2.8 H 0.5-1.3 mg/dL Glomerular Filtration Rate Calc 22 >90 mL/min Random Glucose 246 H 70-105 mg/dL Total Calcium 8.1 L 8.5-10.1 mg/dL Ammonia < 10 L 11-32 umol/L Phosphorus Level 4.6 2.5-4.9 mg/dL Magnesium Level 2.50 H 1.80-2.40 mg/dL DIAGNOSTICS / RADIOLOGY RESULTS: [ ] PLAN NEURO: Minimize central acting medications as possible. Maintain fall precautions, adequate lighting during the day PULMONARY: Supplemental 02 as needed. Maintain aspiration precautions at all times CARDIOVASCULAR: Follow hemodynamics. Vital signs per facility protocol GI & NUTRITION: Continue with nutritional support. Continue stool softeners and laxatives as needed. KIDNEYS & ELECTROLYTES: Strict monitoring of intake, output and overall fluid balance. Avoid nephrotoxic medications to the extent possible. Medications to be dosed according to renal function. Monitor electrolytes and replace as needed ENDOCRINE: Maintain blood glucose between 100-180 at all times. Hypoglycemia protocol in place INFECTIOUS DISEASE: Trend temperature, WBC and procalcitonin level Follow cultures, deescalate antibiotics as soon as possible. Panculture if new onset fever ONCOLOGY/HEMATOLOGY/COAGULATION: Monitor for s/s of bleeding Monitor hemoglobin, coagulation studies as needed SKIN: Pressure ulcer prevention per facility protocol Specialty mattress ORTHO/REHAB: Continue PT/OT Prophylaxis: Continue GI and DVT prophylaxis Code Status: Full Resuscitation Disposition: TBD Other: Total patient care time exceeds 47 minutes excluding all procedures. JORGE VILLANUEVA August 29, 2024 13:47
--- NOTE | 2024-08-29 14:03 | PN ---
[facility] PROGRESS NOTE Date of Service: August 29, 2024 Time of Service: 13:56 SUBJECTIVE: 08/27 Pt seen at bedside, no acute events overnight. Pt weaned off cardene drip, started on PO medications. Will monitor throughout the day and possibly dc tomorrow if BP remains stable 08/28 Pt seen at bedside, no acute events overnight. Pt blood pressure well controlled however he has significant wheeze, rhoncous breathing and cough. Will continue with nebulizers and systemic steroid treatment. CO2 low, will order ABG and follow up. Pt mildly delirius today but responds appropriately 08/29 patient seen at bedside, no acute events overnight. He is still has prominent wheeze and rhonchus breathing. There was no evidence of pneumonia on initial workup, chest x-ray was clear and procalcitonin was in normal range. We will discontinue antibiotics at this time and continue with nebulizers and syste lazaro steroids. As patient has been somewhat confused holding cefepime may help improve his mental status however he is also on systemic steroids which can also contribute to some delirium. Physical therapy recommending group home for rehab, we will consult case management for placement. Patient blood sugars have been elevated we will start glargine 10 units twice daily. Creatinine increased from 2.3 up to 2.8, patient was started on bicarbonate yesterday, we will continue to monitor his urine output. REVIEW OF SYSTEMS 12 point ROS negative unless noted in HPI PHYSICAL EXAM GENERAL APPEARANCE: The patient is awake, alert, and oriented, in no acute cardiopulmonary distress. NEUROLOGICAL: Cranial nerves II-XII grossly intact. Motor is 5/5 in bilateral upper and lower extremities proximal to distal. No sensory deficits. HEENT: Face is symmetric. Pupils are equal and reactive. Extraocular movements are intact. NECK: Supple. No JVD. No thyromegaly. No submental, submandibular, pre- /postauricular, occipital or supraclavicular lymphadenopathy. CHEST: Normal chest expansion. No Telemetry. LUNGS: Scattered expiratory wheezing on bilateral lung salians per auscultation Absence of any rales and rhonchi CARDIOVASCULAR: Regular. S1 and S2 normal. No appreciable rubs, murmurs or gallops. ABDOMEN: Abdomen is round firm and distended .There is no rebound, voluntary guarding, or rigidity. : Deferred. No Griffin. EXTREMITIES: Traces of edema to bilateral lower extremities. No clubbing. Good capillary refill. SKIN: No skin breakdown. Vital Signs (last 8hr) Date Time Temp Pulse Resp B/P (MAP) Pulse Ox O2 Delivery O2 Flow Rate FiO2 08/29/24 13:46 79 22 08/29/24 11:55 97.5 75 17 144/79 96 Nasal Cannula 3.0 08/29/24 10:41 78 22 08/29/24 08:00 97.5 79 17 149/55 96 Nasal Cannula 3.0 08/29/24 06:51 76 24 N/Cannula Low lpm 3.0 32 08/29/24 06:49 76 22 LABS: Laboratory: Test 08/29/24 11:33 08/29/24 03:28 08/28/24 12:13 08/28/24 11:49 Range/Units Whole Blood Glucose 195 H 70-110 MG/DL White Blood Count 10.7 4.8-10.8 K/uL Red Blood Count 2.64 L 4.50-6.20 MIL/uL Hemoglobin 8.2 L 14.0-18.0 g/dL Hematocrit 23.8 L 42-54 % Mean Corpuscular Volume 90.2 79-99 fL Mean Corpuscular Hemoglobin 31.1 27.0-33.0 pg Mean Corpuscular Hemoglobin Concent 34.5 32.0-36.0 g/dL Red Cell Distribution Width 13.8 11.0-15.5 % Platelet Count 213 130-400 K/uL Mean Platelet Volume 9.5 7.5-10.5 fL Immature Granulocyte % (Auto) 1.1 H 0-1 % Neutrophils (%) (Auto) 87.2 H 40.0-77.0 % Lymphocytes (%) (Auto) 4.6 L 21.0-51.0 % Monocytes (%) (Auto) 7.0 3.0-13.0 % Eosinophils (%) (Auto) 0.0 0.0-8.0 % Basophils (%) (Auto) 0.1 0.0-5.0 % Neutrophils # (Auto) 9.3 H 1.8-7.7 K/uL Lymphocytes # (Auto) 0.5 L 1.0-4.8 K/uL Monocytes # (Auto) 0.8 0.1-1.0 K/uL Eosinophils # (Auto) 0.00 0.00-0.70 K/uL Basophils # (Auto) 0.01 0.00-0.20 K/uL Absolute Immature Granulocyte (auto 0.12 0-1 K/uL Nucleated Red Blood Cells 0.0 0.0-0.19 % Sodium Level 132 L 136-145 mmol/L Potassium Level 3.6 3.5-5.1 mmol/L Chloride Level 99 L 101-111 mmol/L Carbon Dioxide Level 20 L 21-32 mmol/L Blood Urea Nitrogen 67 H 7-18 mg/dL Creatinine 2.8 H 0.5-1.3 mg/dL Glomerular Filtration Rate Calc 22 >90 mL/min Random Glucose 246 H 70-105 mg/dL Total Calcium 8.1 L 8.5-10.1 mg/dL Blood Gas Specimen Type Arterial Arterial Blood pH 7.339 L 7.350-7.450 Arterial Blood Partial Pressure CO2 28 L 35-48 mmHg Arterial Blood Partial Pressure O2 79.5 L 83.0-108.0 mmHg Arterial Blood HCO3 14.8 L 21.0-28.0 mmol/L Arterial Blood Oxygen Saturation 95.3 94.0-98.0 % Arterial Blood Base Excess -9.3 L -2.0-3.0 mmol/L Blood Gas Temperature 37.0 35.5-37.0 CELSIUS Blood Gas Flow-by 3.00 0.00-15.00 L/min Blood Gas Vent Mode NC ROOM AIR FiO2 32.0 % Blood Gas Specimen Comment LR,MARTHA Ammonia < 10 L 11-32 umol/L Test 08/28/24 03:45 Range/Units Phosphorus Level 4.6 2.5-4.9 mg/dL Magnesium Level 2.50 H 1.80-2.40 mg/dL Current Medications Medications (Trade) Dose Ordered Sig/Abhijit Route PRN Reason Start Time Stop Time Status Last Admin Dose Admin Acetaminophen (TYLenol 325MG TAB) 650 mg Q4H PRN PO MILD PAIN (1-3) 08/26/24 02:00 09/25/24 01:59 Acetaminophen (TYLenol 325MG TAB) 650 mg Q6H PRN PO TEMPERATURE GREATER THAN 101.5 08/26/24 02:00 09/25/24 01:59 Albuterol (DUOneb) 1 udvial [id number] IH 08/26/24 02:00 09/25/24 01:59 08/29/24 13:46 1 UDVIAL Amlodipine Besylate (NorvASC 5MG TAB) 5 mg DAILY PO 08/27/24 09:00 08/27/24 07:12 DC Budesonide (Pulmicort 0.5 Mg/2ml) 0.5 mg BIDRESP IH 08/26/24 18:00 09/25/24 17:59 08/29/24 06:49 0.5 MG Cefepime HCl (MAXipime 2 gm vial) 2 gm Q12H IVPB 08/26/24 10:00 08/29/24 07:19 DC 08/28/24 23:16 2 GM Ceftriaxone Sodium 1 gm/ Sodium Chloride 50 ml @ 100 mls/hr BID IV 08/26/24 09:00 08/26/24 01:51 DC Ceftriaxone Sodium (ROCEphine 1G INJ) 1 gm BID IVPB 08/26/24 09:00 08/26/24 09:43 DC 08/26/24 09:15 1 GM Dextrose (D50w) 50 ml AD PRN IV HYPOGLYCEMIA PROTOCOL 08/26/24 02:00 09/25/24 01:59 Glucagon (Glucagon 1mg Kit) 1 mg AD PRN IM HYPOGLYCEMIA PROTOCOL 08/26/24 02:00 09/25/24 01:59 Heparin Sodium (Porcine) (HEParin 5,000 UNIT VIAL) 5,000 unit Q12H SQ 08/26/24 21:30 09/25/24 21:29 08/29/24 10:10 5,000 UNIT Hydralazine HCl (APRESOLine 20MG INJ) 10 mg Q6H PRN IV For:SBP above 160;DBP above 90 08/26/24 02:00 09/25/24 01:59 08/27/24 04:00 10 MG Hydralazine HCl ([id number] TAB) 25 mg TID PO 08/26/24 09:00 08/27/24 07:12 DC 08/26/24 21:08 25 MG Hydralazine HCl ([id number] TAB) 50 mg TID PO 08/28/24 09:00 08/28/24 11:31 DC Hydralazine HCl ([id number] TAB) 50 mg TID PO 08/28/24 14:00 09/27/24 13:59 08/29/24 09:57 50 MG Hydralazine HCl ([id number] TAB) 100 mg TID PO 08/27/24 09:00 08/28/24 07:38 DC 08/27/24 09:22 100 MG Hydrochlorothiazide (hydroCHLOROthiazide 25MG) 25 mg DAILY PO 08/29/24 09:00 08/28/24 12:07 DC Insulin Glargine (LANtus 100 UNITS/ML 10 ML VIAL) 10 units BID@0730,2100 SQ 08/29/24 07:30 09/28/24 07:29 08/29/24 07:41 10 UNITS Insulin Human Regular (humuLIN R 100 UNIT/ML 3ML) INSULIN SLIDING SCAL... ACHS SQ 08/26/24 07:30 09/25/24 07:29 08/29/24 12:32 2 UNIT Labetalol HCl (TRANdate 20MG SYG) 10 mg Q6H PRN IV IF SBP GREATER THAN 170 08/26/24 02:00 09/25/24 01:59 08/27/24 05:41 10 MG Losartan Potassium (CozAAR 50 mg TAB) 50 mg BID PO 08/27/24 09:00 09/26/24 08:59 08/29/24 09:57 50 MG Magnesium Sulfate 50 ml @ 0 mls/hr PROTOCOL PRN IV OTHER [SEE ORDER COMMENTS] 08/26/24 02:00 09/25/24 01:59 08/26/24 17:15 50 MLS/HR Methylprednisolone Sodium Succinate (Solu-medROL 40MG) 20 mg Q8H IVP 08/29/24 06:00 09/28/24 05:59 08/29/24 07:38 20 MG Methylprednisolone Sodium Succinate (Solu-medROL 40MG) 40 mg BID IVP 08/27/24 21:00 08/28/24 20:59 DC 08/28/24 09:24 40 MG Metoprolol Tartrate (loprESSOR) 100 mg BID PO 08/26/24 09:00 09/25/24 08:59 08/29/24 09:57 100 MG Montelukast Sodium (SinguLAIR) 10 mg DAILY PO 08/27/24 09:00 09/26/24 08:59 08/29/24 09:57 10 MG Morphine Sulfate (morPHINE 2MG SYG) 2 mg Q4H PRN IV MODERATE PAIN (4-6) 08/26/24 02:00 09/02/24 01:59 08/26/24 06:37 2 MG Nicardipine HCl 20 mg/Sodium Chloride 200 ml @ 0 mls/hr AD PRN IV TITRATE 08/26/24 03:00 08/26/24 02:45 DC Nicardipine HCl 25 mg/Sodium Chloride 250 ml @ 0 mls/hr AD PRN IV TITRATE 08/26/24 03:00 08/27/24 18:03 DC 08/27/24 06:46 50 MLS/HR Nifedipine (adALAT 30MG) 30 mg BID PO 08/28/24 09:00 09/27/24 08:59 08/29/24 09:56 30 MG Nifedipine (adALAT 30MG) 60 mg BID PO 08/27/24 09:00 08/28/24 07:38 DC 08/27/24 07:42 60 MG Ondansetron HCl (zoFRAN 4MG INJ) 4 mg Q6H PRN IV NAUSEA/VOMITING 08/26/24 02:00 09/25/24 01:59 Pantoprazole Sodium (PROTonix 40MG INJ) 40 mg DAILY IVP 08/27/24 09:00 09/26/24 08:59 08/29/24 09:56 40 MG Potassium Chloride 100 ml @ 100 mls/hr AD PRN IV POTASSIUM PROTOCOL 08/26/24 02:00 09/25/24 01:59 Potassium Chloride (K-Dur 10meq Sr Tab) 10 meq AD PRN PO POTASSIUM PROTOCOL 08/26/24 18:00 09/25/24 01:59 08/29/24 12:27 10 MEQ Potassium Chloride (K-Dur/Klor-Con 20meq) 10 meq AD PRN PO POTASSIUM PROTOCOL 08/26/24 02:00 08/26/24 17:48 DC Potassium Chloride (KCl 10% Elixir 20meq/15ml) 10 meq AD PRN PO POTASSIUM PROTOCOL 08/26/24 02:00 09/25/24 01:59 Sodium Bicarbonate (Sodium Bicarbonate) 650 mg TID PO 08/28/24 14:00 09/27/24 13:59 08/29/24 09:57 650 MG Sodium Chloride 1,000 ml @ 50 mls/hr Q20H IV 08/26/24 21:00 08/27/24 13:59 DC 08/26/24 21:08 50 MLS/HR Tamsulosin HCl (FloMAX) 0.4 mg BID PO 08/26/24 21:00 09/25/24 20:59 08/29/24 09:57 0.4 MG Vancomycin HCl 250 ml @ 125 mls/hr Q24H IV 08/27/24 12:00 08/29/24 07:19 DC 08/28/24 11:27 125 MLS/HR Vancomycin HCl (Vancomycin Protocol) 1 each AD IV 08/26/24 10:00 08/29/24 07:19 DC Vitamin B Complex/ Vit C/Folic Acid (Nephrovite Tablet) 1 cap DAILY PO 08/26/24 09:00 09/25/24 08:59 08/29/24 09:57 1 CAP Wound Care/ Dressing Products (Venelex Ointment) 1 APPL TID TP 08/26/24 21:00 09/25/24 20:59 08/29/24 09:58 1 GM DIAGNOSTICS / RADIOLOGY: [ ] ASSESSMENT: Sepsis POA Possible pyelonephritis POA Acute kidney injury POA Kidney stone POA Hypertensive urgency POA Acute normocytic normochromic anemia POA Acute leukocytosis POA CHF POA Debility POA Diabetes POA Hyponatremia POA Dehydration POA Hyperlipidemia POA 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
--- NOTE | 2024-08-29 14:54 | NUR ---
ORDER FOR 6 MINUTE WALK AND TO WEAN OFF O2. RANGE 88-92.
--- NOTE | 2024-08-29 15:35 | NUR ---
SNF Auth Escalation. Called [facility] at , # 2, #1, #1, #2. Per rep, referral received and is pending clinical review. Addendum: 08/29/24 at 1536 by MEG LEAHY CM Amended: Links added.
[2024-08-29] MEDS ORDERED: MAG OX (20:13)
[2024-08-30] VITALS (17 sets, daily range): BP systolic 113–153; BP diastolic 53–85; PULSE 64–83; RESP 17–24; TEMP 97.3–97.9; O2SAT 92–98
[2024-08-30 06:45] LABS: BASOPHILS # (AUTO) 0.01 K/uL (0.00-0.20); BASOPHILS % (AUTO) 0.1 % (0.0-5.0); HEMATOCRIT 25.9 % (42-54); IMMATURE GRANULOCYTE ABSOLUTE 0.08 K/uL (0-1); LYMPHOCYTES # (AUTO) 0.8 K/uL (1.0-4.8); LYMPHOCYTES % (AUTO) 7.9 % (21.0-51.0); MEAN CORPUSCULAR HEMOGLOBIN 30.4 pg (27.0-33.0); MEAN CORPUSCULAR HGB CONC 33.6 g/dL (32.0-36.0); MEAN CORPUSCULAR VOLUME 90.6 fL (79-99); MONOCYTES # (AUTO) 0.5 K/uL (0.1-1.0); NEUTROPHILS # (AUTO) 8.9 K/uL (1.8-7.7); NEUTROPHILS % (AUTO) 86.2 % (40.0-77.0); PLATELET COUNT (AUTO) 232 K/uL (130-400); RED BLOOD CELL COUNT(AUTO) 2.86 MIL/uL (4.50-6.20); RED CELL DISTRIBUTION WIDTH 13.9 % (11.0-15.5); WHITE BLOOD COUNT (AUTO) 10.3 K/uL (4.8-10.8)
[2024-08-30 07:11] LABS: POTASSIUM 3.4 mmol/L (3.5-5.1)
--- NOTE | 2024-08-30 07:17 | NUR ---
CRITICAL BUN OF 84. DR. CARRANZA AWARE Addendum: 08/30/24 at 5434 by PAIGE EATON LVN LVN Amended: Links added.
--- NOTE | 2024-08-30 07:56 | HMCIMG ---
CHEST 1VW HISTORY: Shortness of breath COMPARISON: 08/28/2024 FINDINGS: A frontal projection of the chest was obtained. No acute pulmonary infiltrates is seen. Poststernotomy changes are seen. The heart is enlarged. Degenerative changes of the thoracolumbar spine are present. Pacemaker is seen entering from the left. No evidence of aortic calcification is seen. IMPRESSION: 1. No acute pulmonary infiltrate is seen.
[2024-08-30] MEDS: LACTATED RINGERS IV ONE (08:35)
--- NOTE | 2024-08-30 10:37 | NUR ---
JORGE AT BEDSIDE. ORDERED ABGS
[2024-08-30 11:17] LABS: ABG BASE EXCESS -8.2 mmol/L (-2.0-3.0); ABG HCO3 15.9 mmol/L (21.0-28.0); ABG OXYGEN SATURATION 93.1 % (94.0-98.0); ABG PCO2 30 mmHg (35-48); ABG PH 7.347 (7.350-7.450); DEVICE COMMENT RR ROOM AIR; PO2, ARTERIAL BG 68.2 mmHg (83.0-108.0)
--- NOTE | 2024-08-30 11:40 | NUR ---
JORGE GABRIEL AWARE OF [facility] RESULTS Addendum: 08/30/24 at 1140 by PAIGE EATON LVN LVN Amended: Links added.
--- NOTE | 2024-08-30 12:03 | PN ---
[facility] PROGRESS NOTE Date Patient Seen: August 30, 2024 Time of Visit: 12:00 Supervising Physician: [Dr. Lambert] Primary Care Physician: [Dr. Freida Izaguirre] Outpatient Specialists: [ ] Inpatient Consults: [ ] PROBLEM LIST: Sepsis secondary to pyelonephritis, improved Acute kidney injury in chronic kidney disease, prerenal, decompensated Metabolic acidosis with incomplete respiratory compensation Acute delirium, not POA, mild Hypertensive urgency, resolved Non-obstructive R-renal pelvic calculus, 7mm per CT abdomen, no calculi per renal U/S CAD s/p remote CABG Chronic A-fib on eliquis outpatient PPM/AICD status Sacral ulcer Plan: Continue oral antihypertensives, monitor BP Continue IV solumedrol Discontinue cefepime and vancomycin Blood and urine culture negative Supplemental oxygen as needed, wean off as tolerated Wound care consult for sacral ulcer Follow echocardiogram results Renal ultrasound consistent with renal parenchymal disease Continue Flomax b.i.d. DC IVF Monitor labs and vitals Repeat labs in a.m. 6min walk prior to DC Further management per hospital course INTERVAL HISTORY: [Patient is evaluated at bedside. He has weaned off Cardene drip since this a.m., has initiated antihypertensive medication by mouth with improvement in blood pressure. He appears edematous to bilateral lower extremities. Admits some nausea but no vomiting, is tolerating clear diet well. He has mild end expiratory wheezing but is saturating well on room air. WBC improved to 11 today, creatinine remains elevated but is improved to 1.9 today. His renal ultrasound is consistent with renal parenchymal disease. FENA labs suggest prerenal KEVIN. His blood and urine cultures remained negative. Patient okay to downgrade to Med/surg.] 08/28 patient is evaluated at bedside. His white count is downtrending, continues on IV antibiotics. No fever noted overnight. Blood and urine cultures are negative. He was given a dose of Lasix yesterday, and initiated on oral antihypertensive with improvement of blood pressure. His blood pressure was soft this morning with some BP meds held for the same. Renal ultrasound shows no calculi. Per nurse, patient appeared somewhat confused and combative this morning but has since improved. Daughter at bedside states patient normally at this way whenever he is admitted into the hospital. Ammonia lab drawn was within normal limits. ABG was requested which revealed mild metabolic acidosis with incomplete respiratory compensation. 08/29 Patient is evaluated at bedside. He continues with end-expiratory wheezing bilaterally. He denies a hx of COPD or smoking. Has never seen a lan support specialist outpatient. His antibiotics were discontinued. Blood and urine cultures remain negative. Echocardiogram is within normal limits with EF of 50-55%. 08/30 patient is evaluated at bedside. He continues with shortness of breath, even at rest. His creatinine has significantly evaluated to 3.0 today, he is currently receiving IV fluids. Repeat ABG shows mild metabolic acidosis with incomplete respiratory compensation but is improved from previous. Per nursing staff, patient was unable to tolerate 6 minute walk yesterday due to shortness o f breaths, however was saturating well. His antibiotics have been discontinued, CBC is unremarkable. Repeat CXR today is unremarkable. He continues with mild end-expiratory wheezing bilaterally. REVIEW OF SYSTEMS: 12 point ROS reviewed with patient. Pertinent positives mentioned above. Otherwise negative. PHYSICAL EXAM: GENERAL: alert, weak, awake oriented x 3, no acute distress HEENT: EOMI, Sclera non icteric, moist mucosa NECK: Supple, no JVD, trachea midline LUNGS: Clear breath sounds bilaterally. bilateral end-expiratory wheezing, on 3LNC HEART: Regular rate and rhythm. Normal S1 and S2, without murmurs ABD: Abdomen discomfort with palpation. Bowel sounds present, CVA tenderness bilaterally EXT: No clubbing cyanosis or edema NEURO: Alert and oriented to person, follows commands Vital Signs (last 8hr) Date Time Temp Pulse Resp B/P (MAP) Pulse Ox O2 Delivery O2 Flow Rate FiO2 08/30/24 11:02 73 20 N/A Room Air 21 08/30/24 10:59 73 20 08/30/24 08:00 97.3 83 18 125/85 92 Room Air 08/30/24 06:29 77 20 08/30/24 06:28 77 20 N/A Room Air 21 LABS: Hematology Labs: Test 08/30/24 06:34 Range/Units White Blood Count 10.3 4.8-10.8 K/uL Red Blood Count 2.86 L 4.50-6.20 MIL/uL Hemoglobin 8.7 L 14.0-18.0 g/dL Hematocrit 25.9 L 42-54 % Mean Corpuscular Volume 90.6 79-99 fL Mean Corpuscular Hemoglobin 30.4 27.0-33.0 pg Mean Corpuscular Hemoglobin Concent 33.6 32.0-36.0 g/dL Red Cell Distribution Width 13.9 11.0-15.5 % Platelet Count 232 130-400 K/uL Mean Platelet Volume 9.9 7.5-10.5 fL Immature Granulocyte % (Auto) 0.8 0-1 % Neutrophils (%) (Auto) 86.2 H 40.0-77.0 % Lymphocytes (%) (Auto) 7.9 L 21.0-51.0 % Monocytes (%) (Auto) 5.0 3.0-13.0 % Eosinophils (%) (Auto) 0.0 0.0-8.0 % Basophils (%) (Auto) 0.1 0.0-5.0 % Neutrophils # (Auto) 8.9 H 1.8-7.7 K/uL Lymphocytes # (Auto) 0.8 L 1.0-4.8 K/uL Monocytes # (Auto) 0.5 0.1-1.0 K/uL Eosinophils # (Auto) 0.00 0.00-0.70 K/uL Basophils # (Auto) 0.01 0.00-0.20 K/uL Absolute Immature Granulocyte (auto 0.08 0-1 K/uL Nucleated Red Blood Cells 0.0 0.0-0.19 % Chemistry Labs: Test 08/30/24 11:48 08/30/24 06:34 Range/Units Whole Blood Glucose 205 H 70-110 MG/DL Sodium Level 135 L 136-145 mmol/L Potassium Level 3.4 L 3.5-5.1 mmol/L Chloride Level 100 L 101-111 mmol/L Carbon Dioxide Level 17 L 21-32 mmol/L Blood Urea Nitrogen 84 *H 7-18 mg/dL Creatinine 3.0 H 0.5-1.3 mg/dL Glomerular Filtration Rate Calc 20 >90 mL/min Random Glucose 176 H 70-105 mg/dL Total Calcium 8.3 L 8.5-10.1 mg/dL DIAGNOSTICS / RADIOLOGY RESULTS: [ ] PLAN NEURO: Minimize central acting medications as possible. Maintain fall precautions, adequate lighting during the day PULMONARY: Supplemental 02 as needed. Maintain aspiration precautions at all times CARDIOVASCULAR: Follow hemodynamics. Vital signs per facility protocol GI & NUTRITION: Continue with nutritional support. Continue stool softeners and laxatives as needed. KIDNEYS & ELECTROLYTES: Strict monitoring of intake, output and overall fluid balance. Avoid nephrotoxic medications to the extent possible. Medications to be dosed according to renal function. Monitor electrolytes and replace as needed ENDOCRINE: Maintain blood glucose between 100-180 at all times. Hypoglycemia protocol in place INFECTIOUS DISEASE: Trend temperature, WBC and procalcitonin level Follow cultures, deescalate antibiotics as soon as possible. Panculture if new onset fever ONCOLOGY/HEMATOLOGY/COAGULATION: Monitor for s/s of bleeding Monitor hemoglobin, coagulation studies as needed SKIN: Pressure ulcer prevention per facility protocol Specialty mattress ORTHO/REHAB: Continue PT/OT Prophylaxis: Continue GI and DVT prophylaxis Code Status: Full Resuscitation Disposition: TBD Other: Total patient care time exceeds 47 minutes excluding all procedures. JORGE VILLANUEVA August 30, 2024 12:03
--- NOTE | 2024-08-30 12:09 | PN ---
[facility] PROGRESS NOTE Date of Service: August 30, 2024 Time of Service: 12:08 SUBJECTIVE: 08/27 Pt seen at bedside, no acute events overnight. Pt weaned off cardene drip, started on PO medications. Will monitor throughout the day and possibly dc tomorrow if BP remains stable 08/28 Pt seen at bedside, no acute events overnight. Pt blood pressure well controlled however he has significant wheeze, rhoncous breathing and cough. Will continue with nebulizers and systemic steroid treatment. CO2 low, will order ABG and follow up. Pt mildly delirius today but responds appropriately 08/29 patient seen at bedside, no acute events overnight. He is still has prominent wheeze and rhonchus breathing. There was no evidence of pneumonia on initial workup, chest x-ray was clear and procalcitonin was in normal range. We will discontinue antibiotics at this time and continue with nebulizers and syste lazaro steroids. As patient has been somewhat confused holding cefepime may help improve his mental status however he is also on systemic steroids which can also contribute to some delirium. Physical therapy recommending long-term for rehab, we will consult case management for placement. Patient blood sugars have been elevated we will start glargine 10 units twice daily. Creatinine increased from 2.3 up to 2.8, patient was started on bicarbonate yesterday, we will continue to monitor his urine output. 08/30 patient seen at bedside, no acute events overnight. His wheeze has improved significantly today, he is sitting at bedside on room air now. We will continue with nebulizers and systemic steroids. He is pending placement to long-term. REVIEW OF SYSTEMS 12 point ROS negative unless noted in HPI PHYSICAL EXAM GENERAL APPEARANCE: The patient is awake, alert, and oriented, in no acute cardiopulmonary distress. NEUROLOGICAL: Cranial nerves II-XII grossly intact. Motor is 5/5 in bilateral upper and lower extremities proximal to distal. No sensory deficits. HEENT: Face is symmetric. Pupils are equal and reactive. Extraocular movements are intact. NECK: Supple. No JVD. No thyromegaly. No submental, submandibular, pre- /postauricular, occipital or supraclavicular lymphadenopathy. CHEST: Normal chest expansion. No Telemetry. LUNGS: Scattered expiratory wheezing on bilateral lung [place] per auscultation Absence of any rales and rhonchi CARDIOVASCULAR: Regular. S1 and S2 normal. No appreciable rubs, murmurs or gallops. ABDOMEN: Abdomen is round firm and distended .There is no rebound, voluntary guarding, or rigidity. : Deferred. No Griffin. EXTREMITIES: Traces of edema to bilateral lower extremities. No clubbing. Good capillary refill. SKIN: No skin breakdown. Vital Signs (last 8hr) Date Time Temp Pulse Resp B/P (MAP) Pulse Ox O2 Delivery O2 Flow Rate FiO2 08/30/24 11:02 73 20 N/A Room Air 21 08/30/24 10:59 73 20 08/30/24 08:00 97.3 83 18 125/85 92 Room Air 08/30/24 06:29 77 20 08/30/24 06:28 77 20 N/A Room Air 21 LABS: Laboratory: Test 08/30/24 11:48 08/30/24 11:15 08/30/24 06:34 08/28/24 12:13 Range/Units Whole Blood Glucose 205 H 70-110 MG/DL Blood Gas Specimen Type Arterial Arterial Blood pH 7.347 L 7.350-7.450 Arterial Blood Partial Pressure CO2 30 L 35-48 mmHg Arterial Blood Partial Pressure O2 68.2 L 83.0-108.0 mmHg Arterial Blood HCO3 15.9 L 21.0-28.0 mmol/L Arterial Blood Oxygen Saturation 93.1 L 94.0-98.0 % Arterial Blood Base Excess -8.2 L -2.0-3.0 mmol/L Blood Gas Temperature 37.0 35.5-37.0 CELSIUS FiO2 21.0 % Blood Gas Specimen Comment RR ROOM AIR White Blood Count 10.3 4.8-10.8 K/uL Red Blood Count 2.86 L 4.50-6.20 MIL/uL Hemoglobin 8.7 L 14.0-18.0 g/dL Hematocrit 25.9 L 42-54 % Mean Corpuscular Volume 90.6 79-99 fL Mean Corpuscular Hemoglobin 30.4 27.0-33.0 pg Mean Corpuscular Hemoglobin Concent 33.6 32.0-36.0 g/dL Red Cell Distribution Width 13.9 11.0-15.5 % Platelet Count 232 130-400 K/uL Mean Platelet Volume 9.9 7.5-10.5 fL Immature Granulocyte % (Auto) 0.8 0-1 % Neutrophils (%) (Auto) 86.2 H 40.0-77.0 % Lymphocytes (%) (Auto) 7.9 L 21.0-51.0 % Monocytes (%) (Auto) 5.0 3.0-13.0 % Eosinophils (%) (Auto) 0.0 0.0-8.0 % Basophils (%) (Auto) 0.1 0.0-5.0 % Neutrophils # (Auto) 8.9 H 1.8-7.7 K/uL Lymphocytes # (Auto) 0.8 L 1.0-4.8 K/uL Monocytes # (Auto) 0.5 0.1-1.0 K/uL Eosinophils # (Auto) 0.00 0.00-0.70 K/uL Basophils # (Auto) 0.01 0.00-0.20 K/uL Absolute Immature Granulocyte (auto 0.08 0-1 K/uL Nucleated Red Blood Cells 0.0 0.0-0.19 % Sodium Level 135 L 136-145 mmol/L Potassium Level 3.4 L 3.5-5.1 mmol/L Chloride Level 100 L 101-111 mmol/L Carbon Dioxide Level 17 L 21-32 mmol/L Blood Urea Nitrogen 84 *H 7-18 mg/dL Creatinine 3.0 H 0.5-1.3 mg/dL Glomerular Filtration Rate Calc 20 >90 mL/min Random Glucose 176 H 70-105 mg/dL Total Calcium 8.3 L 8.5-10.1 mg/dL Blood Gas Flow-by 3.00 0.00-15.00 L/min Blood Gas Vent Mode NC ROOM AIR Current Medications Medications (Trade) Dose Ordered Sig/Abhijit Route PRN Reason Start Time Stop Time Status Last Admin Dose Admin Acetaminophen (TYLenol 325MG TAB) 650 mg Q4H PRN PO MILD PAIN (1-3) 08/26/24 02:00 09/25/24 01:59 Acetaminophen (TYLenol 325MG TAB) 650 mg Q6H PRN PO TEMPERATURE GREATER THAN 101.5 08/26/24 02:00 09/25/24 01:59 Albuterol (DUOneb) 1 udvial [id number] IH 08/26/24 02:00 09/25/24 01:59 08/30/24 10:59 1 UDVIAL Amlodipine Besylate (NorvASC 5MG TAB) 5 mg DAILY PO 08/27/24 09:00 08/27/24 07:12 DC Budesonide (Pulmicort 0.5 Mg/2ml) 0.5 mg BIDRESP IH 08/26/24 18:00 09/25/24 17:59 08/30/24 06:27 0.5 MG Cefepime HCl (MAXipime 2 gm vial) 2 gm Q12H IVPB 08/26/24 10:00 08/29/24 07:19 DC 08/28/24 23:16 2 GM Ceftriaxone Sodium 1 gm/ Sodium Chloride 50 ml @ 100 mls/hr BID IV 08/26/24 09:00 08/26/24 01:51 DC Ceftriaxone Sodium (ROCEphine 1G INJ) 1 gm BID IVPB 08/26/24 09:00 08/26/24 09:43 DC 08/26/24 09:15 1 GM Dextrose (D50w) 50 ml AD PRN IV HYPOGLYCEMIA PROTOCOL 08/26/24 02:00 09/25/24 01:59 Glucagon (Glucagon 1mg Kit) 1 mg AD PRN IM HYPOGLYCEMIA PROTOCOL 08/26/24 02:00 09/25/24 01:59 Heparin Sodium (Porcine) (HEParin 5,000 UNIT VIAL) 5,000 unit Q12H SQ 08/26/24 21:30 09/25/24 21:29 08/30/24 08:42 5,000 UNIT Hydralazine HCl (APRESOLine 20MG INJ) 10 mg Q6H PRN IV For:SBP above 160;DBP above 90 08/26/24 02:00 09/25/24 01:59 08/27/24 04:00 10 MG Hydralazine HCl ([id number] TAB) 25 mg TID PO 08/26/24 09:00 08/27/24 07:12 DC 08/26/24 21:08 25 MG Hydralazine HCl ([id number] TAB) 50 mg TID PO 08/28/24 09:00 08/28/24 11:31 DC Hydralazine HCl ([id number] TAB) 50 mg TID PO 08/28/24 14:00 09/27/24 13:59 08/30/24 08:33 50 MG Hydralazine HCl ([id number] TAB) 100 mg TID PO 08/27/24 09:00 08/28/24 07:38 DC 08/27/24 09:22 100 MG Hydrochlorothiazide (hydroCHLOROthiazide 25MG) 25 mg DAILY PO 08/29/24 09:00 08/28/24 12:07 DC Insulin Glargine (LANtus 100 UNITS/ML 10 ML VIAL) 10 units BID@0730,2100 SQ 08/29/24 07:30 09/28/24 07:29 08/30/24 06:50 10 UNITS Insulin Human Regular (humuLIN R 100 UNIT/ML 3ML) INSULIN SLIDING SCAL... ACHS SQ 08/26/24 07:30 09/25/24 07:29 08/29/24 21:18 3 UNIT Labetalol HCl (TRANdate 20MG SYG) 10 mg Q6H PRN IV IF SBP GREATER THAN 170 08/26/24 02:00 09/25/24 01:59 08/27/24 05:41 10 MG Losartan Potassium (CozAAR 50 mg TAB) 50 mg BID PO 08/27/24 09:00 09/26/24 08:59 08/30/24 08:34 50 MG Magnesium Sulfate 50 ml @ 0 mls/hr PROTOCOL PRN IV OTHER [SEE ORDER COMMENTS] 08/26/24 02:00 09/25/24 01:59 08/26/24 17:15 50 MLS/HR Methylprednisolone Sodium Succinate (Solu-medROL 40MG) 20 mg Q8H IVP 08/29/24 06:00 09/28/24 05:59 08/30/24 05:47 20 MG Methylprednisolone Sodium Succinate (Solu-medROL 40MG) 40 mg BID IVP 08/27/24 21:00 08/28/24 20:59 DC 08/28/24 09:24 40 MG Metoprolol Tartrate (loprESSOR) 100 mg BID PO 08/26/24 09:00 09/25/24 08:59 08/30/24 08:34 100 MG Montelukast Sodium (SinguLAIR) 10 mg DAILY PO 08/27/24 09:00 09/26/24 08:59 08/30/24 08:34 10 MG Morphine Sulfate (morPHINE 2MG SYG) 2 mg Q4H PRN IV MODERATE PAIN (4-6) 08/26/24 02:00 09/02/24 01:59 08/26/24 06:37 2 MG Nicardipine HCl 20 mg/Sodium Chloride 200 ml @ 0 mls/hr AD PRN IV TITRATE 08/26/24 03:00 08/26/24 02:45 DC Nicardipine HCl 25 mg/Sodium Chloride 250 ml @ 0 mls/hr AD PRN IV TITRATE 08/26/24 03:00 08/27/24 18:03 DC 08/27/24 06:46 50 MLS/HR Nifedipine (adALAT 30MG) 30 mg BID PO 08/28/24 09:00 09/27/24 08:59 08/30/24 08:33 30 MG Nifedipine (adALAT 30MG) 60 mg BID PO 08/27/24 09:00 08/28/24 07:38 DC 08/27/24 07:42 60 MG Ondansetron HCl (zoFRAN 4MG INJ) 4 mg Q6H PRN IV NAUSEA/VOMITING 08/26/24 02:00 09/25/24 01:59 Pantoprazole Sodium (PROTonix 40MG INJ) 40 mg DAILY IVP 08/27/24 09:00 09/26/24 08:59 08/30/24 08:34 40 MG Potassium Chloride 100 ml @ 100 mls/hr AD PRN IV POTASSIUM PROTOCOL 08/26/24 02:00 09/25/24 01:59 Potassium Chloride (K-Dur 10meq Sr Tab) 10 meq AD PRN PO POTASSIUM PROTOCOL 08/26/24 18:00 09/25/24 01:59 08/30/24 08:34 10 MEQ Potassium Chloride (K-Dur/Klor-Con 20meq) 10 meq AD PRN PO POTASSIUM PROTOCOL 08/26/24 02:00 08/26/24 17:48 DC Potassium Chloride (KCl 10% Elixir 20meq/15ml) 10 meq AD PRN PO POTASSIUM PROTOCOL 08/26/24 02:00 09/25/24 01:59 Sodium Bicarbonate (Sodium Bicarbonate) 650 mg TID PO 08/28/24 14:00 09/27/24 13:59 08/30/24 08:34 650 MG Sodium Chloride 1,000 ml @ 50 mls/hr Q20H IV 08/26/24 21:00 08/27/24 13:59 DC 08/26/24 21:08 50 MLS/HR Tamsulosin HCl (FloMAX) 0.4 mg BID PO 08/26/24 21:00 09/25/24 20:59 08/30/24 08:33 0.4 MG Vancomycin HCl 250 ml @ 125 mls/hr Q24H IV 08/27/24 12:00 08/29/24 07:19 DC 08/28/24 11:27 125 MLS/HR Vancomycin HCl (Vancomycin Protocol) 1 each AD IV 08/26/24 10:00 08/29/24 07:19 DC Vitamin B Complex/ Vit C/Folic Acid (Nephrovite Tablet) 1 cap DAILY PO 08/26/24 09:00 09/25/24 08:59 08/30/24 08:33 1 CAP Wound Care/ Dressing Products (Venelex Ointment) 1 APPL TID TP 08/26/24 21:00 09/25/24 20:59 08/30/24 08:35 1 GM DIAGNOSTICS / RADIOLOGY: [ ] ASSESSMENT: Sepsis POA Possible pyelonephritis POA Acute kidney injury POA Kidney stone POA Hypertensive urgency POA Acute normocytic normochromic anemia POA Acute leukocytosis POA CHF POA Debility POA Diabetes POA Hyponatremia POA Dehydration POA Hyperlipidemia POA 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
[2024-08-31] VITALS (15 sets, daily range): BP systolic 115–143; BP diastolic 48–62; PULSE 61–87; RESP 17–24; TEMP 97.3–97.9; O2SAT 93–97
[2024-08-31] MEDS ORDERED: guaiFENesin-DM 200/20MG 10ML PO PRN (10:30)
[2024-08-31 10:51] LABS: CREATININE 3.4 mg/dL (0.5-1.3); POTASSIUM 3.8 mmol/L (3.5-5.1)
[2024-08-31 11:52] LABS: ABG BASE EXCESS -10.1 mmol/L (-2.0-3.0); ABG HCO3 13.8 mmol/L (21.0-28.0); ABG PCO2 24 mmHg (35-48); ABG PH 7.371 (7.350-7.450); CARBON MONOXIDE 0.1 % (0.5-1.5); HHb 6.9; PO2, ARTERIAL BG 73.6 mmHg (83.0-108.0); VENT MODE, BG ROOM AIR (ROOM AIR)
--- NOTE | 2024-08-31 12:07 | PN ---
[facility] PROGRESS NOTE Date Patient Seen: Aug 31, 2024 Time of Visit: 12:01 Supervising Physician: [Dr. Barker] Primary Care Physician: [Dr. Freida Izaguirre] Outpatient Specialists: [ ] Inpatient Consults: [ ] PROBLEM LIST: Sepsis secondary to pyelonephritis, improved Acute kidney injury in chronic kidney disease, prerenal, decompensated Metabolic acidosis with incomplete respiratory compensation Acute delirium, not POA, mild Hypertensive urgency, resolved Non-obstructive R-renal pelvic calculus, 7mm per CT abdomen, no calculi per renal U/S CAD s/p remote CABG Chronic A-fib on eliquis outpatient PPM/AICD status Sacral ulcer Plan: Renally adjust meds, avoid nephrotoxins Continue oral antihypertensives, monitor BP DC losartan and morphine Continue IV solumedrol Discontinue cefepime and vancomycin Blood and urine culture negative Supplemental oxygen as needed, wean off as tolerated Wound care consult for sacral ulcer Follow echocardiogram results Renal ultrasound consistent with renal parenchymal disease Continue Flomax b.i.d. DC IVF Monitor labs and vitals Repeat labs in a.m. 6min walk prior to DC Further management per hospital course INTERVAL HISTORY: [Patient is evaluated at bedside. He has weaned off Cardene drip since this a.m., has initiated antihypertensive medication by mouth with improvement in blood pressure. He appears edematous to bilateral lower extremities. Admits some nausea but no vomiting, is tolerating clear diet well. He has mild end expiratory wheezing but is saturating well on room air. WBC improved to 11 today, creatinine remains elevated but is improved to 1.9 today. His renal ultrasound is consistent with renal parenchymal disease. FENA labs suggest prerenal KEVIN. His blood and urine cultures remained negative. Patient okay to downgrade to Med/surg.] 08/28 patient is evaluated at bedside. His white count is downtrending, continues on IV antibiotics. No fever noted overnight. Blood and urine cultures are negative. He was given a dose of Lasix yesterday, and initiated on oral antihypertensive with improvement of blood pressure. His blood pressure was soft this morning with some BP meds held for the same. Renal ultrasound shows no calculi. Per nurse, patient appeared somewhat confused and combative this morning but has since improved. Daughter at bedside states patient normally at this way whenever he is admitted into the hospital. Ammonia lab d rawn was within normal limits. ABG was requested which revealed mild metabolic acidosis with incomplete respiratory compensation. 08/29 Patient is evaluated at bedside. He continues with end-expiratory wheezing bilaterally. He denies a hx of COPD or smoking. Has never seen a transport coordinator outpatient. His antibiotics were discontinued. Blood and urine cultures remain negative. Echocardiogram is within normal limits with EF of 50-55%. 08/30 patient is evaluated at bedside. He continues with shortness of breath, even at rest. His creatinine has significantly evaluated to 3.0 today, he is currently receiving IV fluids. Repeat ABG shows mild metabolic acidosis with incomplete respiratory compensation but is improved from previous. Per nursing staff, patient was unable to tolerate 6 minute walk yesterday due to shortness of breaths, however was saturating well. His antibiotics have been discontinued, CBC is unremarkable. Repeat CXR today is unremarkable. He continues with mild end-expiratory wheezing bilaterally. 08/31 patient is evaluated at bedside. He was weaned off supplemental oxygen now on room air. His wheezing is improved. Blood pressure is within normal limits. He has 350 mL of documented urine output in last 24 hours. His creatinine is worsened to 3.4 today. Blood and urine cultures remained negative. REVIEW OF SYSTEMS: 12 point ROS reviewed with patient. Pertinent positives mentioned above. Otherwise negative. PHYSICAL EXAM: GENERAL: alert, weak, awake oriented x 3, no acute distress HEENT: EOMI, Sclera non icteric, moist mucosa NECK: Supple, no JVD, trachea midline LUNGS: Clear breath sounds bilaterally. bilateral end-expiratory wheezing, on 3LNC HEART: Regular rate and rhythm. Normal S1 and S2, without murmurs ABD: Abdomen discomfort with palpation. Bowel sounds present, CVA tenderness bilaterally EXT: No clubbing cyanosis or edema NEURO: Alert and oriented to person, follows commands Vital Signs (last 8hr) Date Time Temp Pulse Resp B/P (MAP) Pulse Ox O2 Delivery O2 Flow Rate FiO2 08/31/24 10:53 73 20 N/A Room Air 21 08/31/24 10:53 73 20 08/31/24 08:00 97.3 71 17 138/62 97 Room Air 08/31/24 06:40 78 20 N/A Room Air 21 08/31/24 06:40 78 20 LABS: Hematology Labs: Test 08/30/24 06:34 Range/Units White Blood Count 10.3 4.8-10.8 K/uL Red Blood Count 2.86 L 4.50-6.20 MIL/uL Hemoglobin 8.7 L 14.0-18.0 g/dL Hematocrit 25.9 L 42-54 % Mean Corpuscular Volume 90.6 79-99 fL Mean Corpuscular Hemoglobin 30.4 27.0-33.0 pg Mean Corpuscular Hemoglobin Concent 33.6 32.0-36.0 g/dL Red Cell Distribution Width 13.9 11.0-15.5 % Platelet Count 232 130-400 K/uL Mean Platelet Volume 9.9 7.5-10.5 fL Immature Granulocyte % (Auto) 0.8 0-1 % Neutrophils (%) (Auto) 86.2 H 40.0-77.0 % Lymphocytes (%) (Auto) 7.9 L 21.0-51.0 % Monocytes (%) (Auto) 5.0 3.0-13.0 % Eosinophils (%) (Auto) 0.0 0.0-8.0 % Basophils (%) (Auto) 0.1 0.0-5.0 % Neutrophils # (Auto) 8.9 H 1.8-7.7 K/uL Lymphocytes # (Auto) 0.8 L 1.0-4.8 K/uL Monocytes # (Auto) 0.5 0.1-1.0 K/uL Eosinophils # (Auto) 0.00 0.00-0.70 K/uL Basophils # (Auto) 0.01 0.00-0.20 K/uL Absolute Immature Granulocyte (auto 0.08 0-1 K/uL Nucleated Red Blood Cells 0.0 0.0-0.19 % Chemistry Labs: Test 08/31/24 11:27 08/31/24 10:29 Range/Units Whole Blood Glucose 136 H 70-110 MG/DL Sodium Level 134 L 136-145 mmol/L Potassium Level 3.8 3.5-5.1 mmol/L Chloride Level 101 101-111 mmol/L Carbon Dioxide Level 18 L 21-32 mmol/L Blood Urea Nitrogen 91 *H 7-18 mg/dL Creatinine 3.4 H 0.5-1.3 mg/dL Glomerular Filtration Rate Calc 18 >90 mL/min Random Glucose 141 H 70-105 mg/dL Total Calcium 8.3 L 8.5-10.1 mg/dL DIAGNOSTICS / RADIOLOGY RESULTS: [ ] PLAN NEURO: Minimize central acting medications as possible. Maintain fall precautions, adequate lighting during the day PULMONARY: Supplemental 02 as needed. Maintain aspiration precautions at all times CARDIOVASCULAR: Follow hemodynamics. Vital signs per facility protocol GI & NUTRITION: Continue with nutritional support. Continue stool softeners and laxatives as needed. KIDNEYS & ELECTROLYTES: Strict monitoring of intake, output and overall fluid balance. Avoid nephrotoxic medications to the extent possible. Medications to be dosed according to renal function. Monitor electrolytes and replace as needed ENDOCRINE: Maintain blood glucose between 100-180 at all times. Hypoglycemia protocol in place INFECTIOUS DISEASE: Trend temperature, WBC and procalcitonin level Follow cultures, deescalate antibiotics as soon as possible. Panculture if new onset fever ONCOLOGY/HEMATOLOGY/COAGULATION: Monitor for s/s of bleeding Monitor hemoglobin, coagulation studies as needed SKIN: Pressure ulcer prevention per facility protocol Specialty mattress ORTHO/REHAB: Continue PT/OT Prophylaxis: Continue GI and DVT prophylaxis Code Status: Full Resuscitation Disposition: TBD Other: JORGE VILLANUEVA Aug 31, 2024 12:07
[2024-08-31] MEDS: 0.9%NACL 1000ML 777 ML IV ONE (12:17)
[2024-08-31] MEDS ORDERED: RENAL DOSE IV ONE (12:30)
--- NOTE | 2024-08-31 12:36 | NUR ---
AT BEDSIDE. NEW ORDERS FOR STOP FLUIDS, I&O'S, DAILY WEIGHT, LACTULOSE 30CC PRN, UA, LABS FOR AM.
--- NOTE | 2024-08-31 13:20 | CONS ---
NEPHROLOGY CONSULTATION NOTE Date/Time Patient Seen: Aug 31, 2024 1235 Reason for Consultation: Renal failure, abdominal pain, sepsis, fever, diarrhea HISTORY OF PRESENT ILLNESS: This is an 78-year-old male with past medical history of CHF, type 2 diabetes, hypertension, hyperlipidemia, CKD stage 3, atrial fibrillation on chronic anticoagulation with Eliquis, anemia, morbid obesity, BPH and coronary artery disease with CABG x3,PPM/AICD was brought by EMS to the ED for complaints of fever, diarrhea and abdominal pain He has been in the hospital for several days. Blood cultures has been negative CT of the abdomen showed right nephrolithiasis. He was noted to have elevated BUN/creatinine We have been consulted for renal failure Renal function remains elevated Electrolytes are stable. Hemoglobin has been noted. He continues on gentle IV hydration He was seen in the medical floor, according to be in no shortness of breath and wheezing No family at the bedside Prognosis remains guarded REVIEW OF SYSTEMS: GENERAL: Negative for any nausea, vomiting, fevers, chills, or weight loss. NEUROLOGIC: Negative for any blurry vision, blind spots, double vision, facial asymmetry, dysphagia, dysarthria, hemiparesis, hemisensory deficits, vertigo, ataxia. HEENT: Negative for any head trauma, neck trauma, neck stiffness, photophobia, phonophobia, sinusitis, rhinitis. CARDIAC: Negative for any chest pain, dyspnea on exertion, paroxysmal nocturnal dyspnea, peripheral edema. PULMONARY: Negative for any shortness of breath, wheezing, COPD, or TB exposure. GASTROINTESTINAL: Negative for any abdominal pain, nausea, vomiting, bright red blood per rectum, melena. GENITOURINARY: Negative for any dysuria, hematuria, incontinence. INTEGUMENTARY: Negative for any rashes, cuts, insect bites. RHEUMATOLOGIC: Negative for any joint pains, photosensitive rashes, history of vasculitis or kidney problems. HEMATOLOGIC: Negative for any abnormal bruising, frequent infections or bl eeding. PAST MEDICAL HISTORY: CHF, type 2 diabetes, hypertension, hyperlipidemia, CKD stage 3, atrial fib rillation on chronic anticoagulation with Eliquis, anemia, morbid obesity, BPH and coronary artery disease PAST SURGICAL HISTORY: CABG Ppm/AICD placement Bilateral hip replacement PAST SOCIAL HISTORY: Denies use of alcohol, tobacco or illicit drugs FAMILY HISTORY: Noncontributory PHYSICAL EXAM: GENERAL: Alert and oriented x 3. No acute distress. Well-nourished. EYES: EOMI. Anicteric. HENT: Moist mucous membranes. No scleral icterus. No cervical lymphadenopathy. LUNGS: Clear to auscultation bilaterally. No accessory muscle use. CARDIOVASCULAR: Regular rate and rhythm. No murmur. No JVD. ABDOMEN: Soft, non-tender and non-distended. No palpable masses. EXTREMITIES: No edema. Non-tender. SKIN: No rashes or lesions. Warm. NEUROLOGIC: No focal neurological deficits. CN II-XII grossly intact, but not individually tested. PSYCHIATRIC: Cooperative. Appropriate mood and affect. MEDICATIONS: [ ] Current Medications Medications (Trade) Dose Ordered Sig/Abhijit Route PRN Reason Start Time Stop Time Status Last Admin Dose Admin Acetaminophen (TYLenol 325MG TAB) 650 mg Q4H PRN PO MILD PAIN (1-3) 08/26/24 02:00 09/25/24 01:59 Acetaminophen (TYLenol 325MG TAB) 650 mg Q6H PRN PO TEMPERATURE GREATER THAN 101.5 08/26/24 02:00 09/25/24 01:59 Albuterol (DUOneb) 1 udvial [id number] IH 08/26/24 02:00 09/25/24 01:59 08/31/24 10:51 1 UDVIAL Amlodipine Besylate (NorvASC 5MG TAB) 5 mg DAILY PO 08/27/24 09:00 08/27/24 07:12 DC Budesonide (Pulmicort 0.5 Mg/2ml) 0.5 mg BIDRESP IH 08/26/24 18:00 09/25/24 17:59 08/31/24 06:38 0.5 MG Cefepime HCl (MAXipime 2 gm vial) 2 gm Q12H IVPB 08/26/24 10:00 08/29/24 07:19 DC 08/28/24 23:16 2 GM Ceftriaxone Sodium 1 gm/ Sodium Chloride 50 ml @ 100 mls/hr BID IV 08/26/24 09:00 08/26/24 01:51 DC Ceftriaxone Sodium (ROCEphine 1G INJ) 1 gm BID IVPB 08/26/24 09:00 08/26/24 09:43 DC 08/26/24 09:15 1 GM Dextrose (D50w) 50 ml AD PRN IV HYPOGLYCEMIA PROTOCOL 08/26/24 02:00 09/25/24 01:59 Glucagon (Glucagon 1mg Kit) 1 mg AD PRN IM HYPOGLYCEMIA PROTOCOL 08/26/24 02:00 09/25/24 01:59 Guaifenesin/ Dextromethorphan (RobiTUSSin DM 200/20MG 10ML) 10 ml Q6H PRN PO COUGH 08/31/24 10:30 09/30/24 10:29 Heparin Sodium (Porcine) (HEParin 5,000 UNIT VIAL) 5,000 unit Q12H SQ 08/26/24 21:30 09/25/24 21:29 08/31/24 09:50 5,000 UNIT Hydralazine HCl (APRESOLine 20MG INJ) 10 mg Q6H PRN IV For:SBP above 160;DBP above 90 08/26/24 02:00 09/25/24 01:59 08/27/24 04:00 10 MG Hydralazine HCl ([id number] TAB) 25 mg TID PO 08/26/24 09:00 08/27/24 07:12 DC 08/26/24 21:08 25 MG Hydralazine HCl ([id number] TAB) 50 mg TID PO 08/28/24 09:00 08/28/24 11:31 DC Hydralazine HCl ([id number] TAB) 50 mg TID PO 08/28/24 14:00 09/27/24 13:59 08/31/24 09:47 50 MG Hydralazine HCl ([id number] TAB) 100 mg TID PO 08/27/24 09:00 08/28/24 07:38 DC 08/27/24 09:22 100 MG Hydrochlorothiazide (hydroCHLOROthiazide 25MG) 25 mg DAILY PO 08/29/24 09:00 08/28/24 12:07 DC Insulin Glargine (LANtus 100 UNITS/ML 10 ML VIAL) 10 units BID@0730,2100 SQ 08/29/24 07:30 09/28/24 07:29 08/31/24 06:33 10 UNITS Insulin Human Regular (humuLIN R 100 UNIT/ML 3ML) INSULIN SLIDING SCAL... ACHS SQ 08/26/24 07:30 09/25/24 07:29 08/30/24 22:16 2 UNIT Labetalol HCl (TRANdate 20MG SYG) 10 mg Q6H PRN IV IF SBP GREATER THAN 170 08/26/24 02:00 09/25/24 01:59 08/27/24 05:41 10 MG Lactulose (Constulose 20gm/ 30ml Udcup) 20 gm BID PRN PO CONSTIPATION 08/31/24 13:00 09/30/24 12:59 Losartan Potassium (CozAAR 50 mg TAB) 50 mg BID PO 08/27/24 09:00 08/31/24 10:00 DC 08/31/24 09:46 50 MG Magnesium Sulfate 50 ml @ 0 mls/hr PROTOCOL PRN IV OTHER [SEE ORDER COMMENTS] 08/26/24 02:00 09/25/24 01:59 08/26/24 17:15 50 MLS/HR Methylprednisolone Sodium Succinate (Solu-medROL 40MG) 20 mg Q8H IVP 08/29/24 06:00 08/31/24 12:05 DC 08/31/24 06:33 20 MG Methylprednisolone Sodium Succinate (Solu-medROL 40MG) 40 mg BID IVP 08/27/24 21:00 08/28/24 20:59 DC 08/28/24 09:24 40 MG Metoprolol Tartrate (loprESSOR) 100 mg BID PO 08/26/24 09:00 09/25/24 08:59 08/31/24 09:46 100 MG Montelukast Sodium (SinguLAIR) 10 mg DAILY PO 08/27/24 09:00 09/26/24 08:59 08/31/24 09:46 10 MG Morphine Sulfate (morPHINE 2MG SYG) 2 mg Q4H PRN IV MODERATE PAIN (4-6) 08/26/24 02:00 08/31/24 04:59 DC 08/26/24 06:37 2 MG Nicardipine HCl 20 mg/Sodium Chloride 200 ml @ 0 mls/hr AD PRN IV TITRATE 08/26/24 03:00 08/26/24 02:45 DC Nicardipine HCl 25 mg/Sodium Chloride 250 ml @ 0 mls/hr AD PRN IV TITRATE 08/26/24 03:00 08/27/24 18:03 DC 08/27/24 06:46 50 MLS/HR Nifedipine (adALAT 30MG) 30 mg BID PO 08/28/24 09:00 09/27/24 08:59 08/31/24 09:46 30 MG Nifedipine (adALAT 30MG) 60 mg BID PO 08/27/24 09:00 08/28/24 07:38 DC 08/27/24 07:42 60 MG Ondansetron HCl (zoFRAN 4MG INJ) 4 mg Q6H PRN IV NAUSEA/VOMITING 08/26/24 02:00 09/25/24 01:59 Pantoprazole Sodium (PROTonix 40MG INJ) 40 mg DAILY IVP 08/27/24 09:00 09/26/24 08:59 08/31/24 09:47 40 MG Potassium Chloride 100 ml @ 100 mls/hr AD PRN IV POTASSIUM PROTOCOL 08/26/24 02:00 09/25/24 01:59 Potassium Chloride (K-Dur 10meq Sr Tab) 10 meq AD PRN PO POTASSIUM PROTOCOL 08/26/24 18:00 09/25/24 01:59 08/30/24 12:08 10 MEQ Potassium Chloride (K-Dur/Klor-Con 20meq) 10 meq AD PRN PO POTASSIUM PROTOCOL 08/26/24 02:00 08/26/24 17:48 DC Potassium Chloride (KCl 10% Elixir 20meq/15ml) 10 meq AD PRN PO POTASSIUM PROTOCOL 08/26/24 02:00 09/25/24 01:59 Sodium Bicarbonate (Sodium Bicarbonate) 650 mg TID PO 08/28/24 14:00 09/27/24 13:59 08/31/24 09:46 650 MG Sodium Chloride 1,000 ml @ 50 mls/hr Q20H IV 08/26/24 21:00 08/27/24 13:59 DC 08/26/24 21:08 50 MLS/HR Tamsulosin HCl (FloMAX) 0.4 mg BID PO 08/26/24 21:00 09/25/24 20:59 08/31/24 09:46 0.4 MG Vancomycin HCl 250 ml @ 125 mls/hr Q24H IV 08/27/24 12:00 08/29/24 07:19 DC 08/28/24 11:27 125 MLS/HR Vancomycin HCl (Vancomycin Protocol) 1 each AD IV 08/26/24 10:00 08/29/24 07:19 DC Vitamin B Complex/ Vit C/Folic Acid (Nephrovite Tablet) 1 cap DAILY PO 08/26/24 09:00 09/25/24 08:59 08/31/24 09:46 1 CAP Wound Care/ Dressing Products (Venelex Ointment) 1 APPL TID TP 08/26/24 21:00 09/25/24 20:59 08/31/24 09:47 1 GM Vital Signs (last 8hr) Date Time Temp Pulse Resp B/P (MAP) Pulse Ox O2 Delivery O2 Flow Rate FiO2 08/31/24 12:00 97.9 87 17 143/51 94 Room Air 08/31/24 10:53 73 20 N/A Room Air 21 08/31/24 10:53 73 20 08/31/24 08:00 97.3 71 17 138/62 97 Room Air 08/31/24 06:40 78 20 N/A Room Air 21 08/31/24 06:40 78 20 DIAGNOSTICS / RADIOLOGY: REASON: sob, evaluate for infiltrates ORDERING PHYSICIAN: AYDEE CARRANZA MD PROCEDURE: CXR1VW - CHEST 1VW CHEST 1VW HISTORY: Shortness of breath COMPARISON: 08/28/2024 FINDINGS: A frontal projection of the chest was obtained. No acute pulmonary infiltrates is seen. Poststernotomy changes are seen. The heart is enlarged. Degenerative changes of the thoracolumbar spine are present. Pacemaker is seen entering from the left. No evidence of aortic calcification is seen. IMPRESSION: 1. No acute pulmonary infiltrate is seen. DICTATED BY: BEATRICE TSANG MD DATE: 08/30/24 0753 REASON: SOB ORDERING PHYSICIAN: JORGE VILLANUEVA PROCEDURE: CXR1VW - CHEST 1VW CHEST 1VW HISTORY: Shortness of breath COMPARISON: 08/25/2024 FINDINGS: A frontal projection of the chest was obtained. No acute pulmonary infiltrates is seen. The heart is enlarged. Pacemaker is seen entering from the left. No evidence of aortic calcification is seen. IMPRESSION: 1. No acute pulmonary infiltrate is seen. DICTATED BY: BEATRICE TSANG MD DATE: 08/28/24 1223 REASON: alexy ORDERING PHYSICIAN: JORGE VILLANUEVA PROCEDURE: RENAL - US RENAL SONOGRAM Exam Type: US RENAL SONOGRAM Clinical Information: alexy Comparison: None Findings: The kidneys are hyperechoic consistent with renal parenchymal disease. There are no calculi. No hydronephrosis or calculi are seen. No renal masses are seen. There is no evidence of perinephric fluid on either side. No evidence of significant ureteral dilatation is seen. The right kidney measures 9.3 x 3.7 cm. The left kidney measures 10.1 x 4.6 cm. The urinary bladder is normal. No bladder masses, stones, or wall thickening is seen. IMPRESSION: Hyperechoic kidneys consistent with renal parenchymal disease. DICTATED BY: JENA MARIE CROOK MD DATE: 08/26/24 1434 REASON: R/O CHF ORDERING PHYSICIAN: AYDEE CARRANZA MD PROCEDURE: ECHO [facility] - ECHO 2-D COMPLETE APPROVED REPORT EXAM: Two-dimensional and M-mode echocardiogram with Doppler and color Doppler. INDICATION ICD: Rule out congestive heart failure 2D Dimensions RVDd 4.3 cm LVEF(%) 51.5 (>50%) LVED Vol(simp.) 136.0 mL IVSd 1.2 (0.7-1.1cm) FS(%) 27 % LVES Vol(simp.) 66.0 mL LVDd 5.3 (3.8-5.6cm) LA (2D) 3.7 (1.6-4.0cm) LVEF(%, simp.) 51 % PWd 1.6 (0.7-1.1cm) Ao Root(2D) 3.6 (2.0-3.7cm) LA ESV INDEX (BP) 36.65 mL/m2 IVSs 1.4 cm LVOT diam 2.5 (1.8-2.4cm) LVDs 3.9 (2.5-4.0cm) PWs 1.7 cm Deformation Strain Apical 4 -4.4 % Apical 2 -8.8 % Apical 3 -9.0 % Global Strain -7.4 % M-Mode Dimensions EPSS 1.2 cm LA (MM) 4.2 (1.6-4.0cm) Ao Root(MM) 4.1 (2.0-3.7cm) Aortic Valve AoV Vmax 1.6 m/s Ao Peak GR 10.3 mmHg LVOT Vmax 0.8 m/s AoV VTI 0.3 m Ao Mean GR 6.0 mmHg LVOT VTI 0.18 m DIONICIO (VMAX) 2.53 cm2 DIONICIO (VTI) 2.6 cm2 Mitral Valve MV E Vmax 97.2 cm/s DECEL Time 230 ms MV A Vmax 68.4 cm/s P 1/2 T 52 ms E/A ratio 1.4 MVA (PHT) 4.2 cm2 TDI E/E' Medial 19.6 E/E' Lateral 17.7 Medial E' Peak V 4.97 cm/s Lateral E' Peak V 5.50 cm/s Pulmonary Valve PV Vmax 0.9 m/s PV VTI 0.16 m PV Mean GR 1.8 mmHg PV Peak GR 3.1 mmHg Tricuspid Valve TR Vmax 2.8 m/s RAP (EST) 8 mmHg RVSP 39.2 mmHg TR Peak GR 31.2 mmHg Left Ventricle The left ventricle is normal size. There is normal LV segmental wall motion. The re is mild left ventricular wall thickness. LVEF is 50-55%. The LV diastolic function was unable to be assessed due to atrial arrhythmia. Right Ventricle The right ventricle is normal size. The right ventricular systolic function is normal. Atria The left atrium is mildly dilated. The right atrium is mildly dilated. Aortic Valve Aortic valve is trileaflet and opens well. Mild annular calcification noted. No aortic regurgitation is present. There is no aortic valvular stenosis. Mitral Valve Mitral valve leaflets open well. Mild posterior annular calcification noted. There is trace of mitral valve regurgitation noted. There is no mitral valve stenosis. Tricuspid Valve The tricuspid valve is normal in structure. There is no tricuspid valve regurgitation noted. Pulmonic Valve Pulmonic valve is not well visualized. There is no pulmonic valvular regurgitation. Great Vessels The aortic root is normal in size. IVC is not well visualized. Pericardium There is no pericardial effusion. Other Information Quality : Technically difficult study due to body habitus Conclusion The left ventricle is normal size. LVEF is 50-55% with normal LV segmental wall motion. There is mild left ventricular wall thickness. The LV diastolic function was unable to be assessed due to atrial arrhythmia. The right ventricular systolic function is normal. The left atrium is mildly dilated. No hemodynamically significant valvular abnormalities. There is no pericardial effusion. DICTATED BY: VIPIN GOODMAN MD DATE: 08/26/24 0404 REASON: fever ORDERING PHYSICIAN: EFRAIN DAVIS MD PROCEDURE: ABD PEL WO - CT ABDOMEN/PELVIS W/O CONTRAST Exam Type: CT ABDOMEN/PELVIS W/O CONTRAST Clinical Information: fever Comparison: None CT Dose Index (CTDI): 10.20 mGy Dose Length Product (DLP): 530.00 total mGy-cm PROTOCOL: Routine noncontrast helical scanning of the abdomen and pelvis was performed at 5mm collimation. Findings: No hydronephrosis or ureteral dilatation is seen. Both kidneys demonstrate simple cysts and atrophy. Renal vascular calcifications are seen bilaterally. Right renal nonobstructing calculus mid pole, 7 mm. The lung bases are clear. Cardiomegaly. Status post median sternotomy. Coronary arterial calcifications of the [place] coronary arteries. The stomach is unremarkable. It shows no wall thickening. No gross ulceration is seen. It is not overly distended. There are no surrounding inflammatory changes. No wall lesions are identified to suggest cancer. The spleen is unremarkable. It is not enlarged. The pancreas shows normal anatomy. It is not fatty replaced. It shows no lesions. The pancreatic duct is not dilated. The gallbladder is unremarkable. It shows no cholelithiasis. The gallbladder wall is normal in thickness. There is no pericholecystic fluid. The is no acute or chronic inflammation noted. The adrenal glands are unremarkable. There is no enlargement. No lesions are noted. The liver is unremarkable. It shows no focal masses. The appendix is unremarkable. It shows no evidence of inflammation. No appendicolith is seen. The small bowel is unremarkable. There is no evidence of dilatation to suggest obstruction. No evidence of adynamic ileus is seen. There is no small bowel wall thickening to suggest enteritis. The colon is unremarkable. The urinary bladder is unremarkable. There is no wall thickening to suggest tumor or inflammation. There are no intraluminal calculi. There are no diverticula. There is no evidence of chronic bladder outlet obstruction. There is no evidence of urinary bladder distention to suggest urinary retention. The other pelvic structures are unremarkable. The bony and vascular structures are unremarkable for the patient's age. IMPRESSION: Right nephrolithiasis, other findings as described. This study was performed using dose reduction techniques to include automated exposure control and/or adjustment of the mA and/or kV according to patient size. DICTATED BY: JEAN MARIE CROOK MD DATE: 08/26/24 0826 REASON: fever ORDERING PHYSICIAN: EFRAIN DAVIS MD PROCEDURE: CXR1VW - CHEST 1VW Exam Type: CHEST 1VW Clinical Information: fever Comparison: None Findings: The lungs are clear of infiltrates. The heart is enlarged in size. The bony and soft tissue structures of the chest are unremarkable. Left cardiac pacemaker is noted with leads in place. Impression: Clear lungs. DICTATED BY: JEAN MARIE CROOK MD DATE: 08/26/24 0903 LABORATORY: [ ] Hematology Labs: Test 08/30/24 06:34 Range/Units White Blood Count 10.3 4.8-10.8 K/uL Red Blood Count 2.86 L 4.50-6.20 MIL/uL Hemoglobin 8.7 L 14.0-18.0 g/dL Hematocrit 25.9 L 42-54 % Mean Corpuscular Volume 90.6 79-99 fL Mean Corpuscular Hemoglobin 30.4 27.0-33.0 pg Mean Corpuscular Hemoglobin Concent 33.6 32.0-36.0 g/dL Red Cell Distribution Width 13.9 11.0-15.5 % Platelet Count 232 130-400 K/uL Mean Platelet Volume 9.9 7.5-10.5 fL Immature Granulocyte % (Auto) 0.8 0-1 % Neutrophils (%) (Auto) 86.2 H 40.0-77.0 % Lymphocytes (%) (Auto) 7.9 L 21.0-51.0 % Monocytes (%) (Auto) 5.0 3.0-13.0 % Eosinophils (%) (Auto) 0.0 0.0-8.0 % Basophils (%) (Auto) 0.1 0.0-5.0 % Neutrophils # (Auto) 8.9 H 1.8-7.7 K/uL Lymphocytes # (Auto) 0.8 L 1.0-4.8 K/uL Monocytes # (Auto) 0.5 0.1-1.0 K/uL Eosinophils # (Auto) 0.00 0.00-0.70 K/uL Basophils # (Auto) 0.01 0.00-0.20 K/uL Absolute Immature Granulocyte (auto 0.08 0-1 K/uL Nucleated Red Blood Cells 0.0 0.0-0.19 % Chemistry Labs: Test 08/31/24 11:27 08/31/24 10:29 Range/Units Whole Blood Glucose 136 H 70-110 MG/DL Sodium Level 134 L 136-145 mmol/L Potassium Level 3.8 3.5-5.1 mmol/L Chloride Level 101 101-111 mmol/L Carbon Dioxide Level 18 L 21-32 mmol/L Blood Urea Nitrogen 91 *H 7-18 mg/dL Creatinine 3.4 H 0.5-1.3 mg/dL Glomerular Filtration Rate Calc 18 >90 mL/min Random Glucose 141 H 70-105 mg/dL Total Calcium 8.3 L 8.5-10.1 mg/dL ASSESSMENT: Sepsis POA Possible pyelonephritis POA Acute kidney injury POA Kidney stone POA Hypertensive urgency POA Acute normocytic normochromic anemia POA Acute leukocytosis POA CHF POA Debility POA Diabetes POA Hyponatremia POA Dehydration POA Hyperlipidemia POA 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 Atrial fibrillation on chronic anticoagulation POA Sacral ulcer POA PLAN: Labs, diagnostic, radiologic exams reviewed and interpreted by myself and supervising physician. We have reviewed external records in detail Discontinue IV fluids Obtain UA, Start lactulose 30 mL p.o. t.i.d. p.r.n. for constipation Require close monitoring of renal function and electrolytes Order CBC, CMP, uric acid, TSH, complete iron panel, PTH ferritin and electrolytes in am IV iron/Epogen as needed Continue with antibiotics Renal diabetic diet BiPAP as necessary, for respiratory distress IV pressors as needed Monitor blood pressure adjust medication doses as needed Avoid hypotensive episodes May use Dilaudid 0.5 mg IV every 6 hours as needed for severe pain Monitor blood sugars Strict intake, output, and daily weight should be monitored Please renally adjust medications Avoid nephrotoxic and nonsteroidal drugs Avoid contrast if possible Will continue to monitor renal function, anemia, electrolytes Treatment plan discussed with patient Questions were answered We have discussed with the other team physicians in detail about the care plan We will continue to monitor the patient closely Thank you for allowing us to participate in the care of this patient ATTESTATION BY PHYSICIAN I have seen and examined the patient. I reviewed the documentation, medical decision making, and treatment plan as noted by the mid-level provider above. I agree with the findings and plan of care. MATTHIEU PARHAM MD, [employer] Aug 31, 2024 13:20
--- NOTE | 2024-08-31 14:15 | PN ---
[facility] PROGRESS NOTE Date of Service: Aug 31, 2024 Time of Service: 13:23 SUBJECTIVE: 08/27 Pt seen at bedside, no acute events overnight. Pt weaned off cardene drip, started on PO medications. Will monitor throughout the day and possibly dc tomorrow if BP remains stable 08/28 Pt seen at bedside, no acute events overnight. Pt blood pressure well controlled however he has significant wheeze, rhoncous breathing and cough. Will continue with nebulizers and systemic steroid treatment. CO2 low, will order ABG and follow up. Pt mildly delirius today but responds appropriately 08/29 patient seen at bedside, no acute events overnight. He is still has prominent wheeze and rhonchus breathing. There was no evidence of pneumonia on initial workup, chest x-ray was clear and procalcitonin was in normal range. We will discontinue antibiotics at this time and continue with nebulizers and systemic steroids. As patient has been somewhat confused holding cefepime may help improve his mental status however he is also on systemic steroids which can also contribute to some delirium. Physical therapy recommending longterm for rehab, we will consult case management for placement. Patient blood sugars have been elevated we will start glargine 10 units twice daily. Creatinine increased from 2.3 up to 2.8, patient was started on bicarbonate yesterday, we will continue to monitor his urine output. 08/30 patient seen at bedside, no acute events overnight. His wheeze has improved significantly today, he is sitting at bedside on room air now. We will continue with nebulizers and systemic steroids. He is pending placement to longterm. 08/31 patient seen at bedside, no acute events overnight. He has no complaints at bedside, breathing appears to be improved, he continues on room air. Family recommending longterm placement. His BUN/creatinine continue to up trend to 91 and 3.4. He has no history of heart failure, we will bolus 1 L and follow up with his renal function tomorrow. Nephrology consulted for further recommendations. REVIEW OF SYSTEMS 12 point ROS negative unless noted in HPI PHYSICAL EXAM GENERAL APPEARANCE: The patient is awake, alert, and oriented, in no acute cardiopulmonary distress. NEUROLOGICAL: Cranial nerves II-XII grossly intact. Motor is 5/5 in bilateral upper and lower extremities proximal to distal. No sensory deficits. HEENT: Face is symmetric. Pupils are equal and reactive. Extraocular movements are intact. NECK: Supple. No JVD. No thyromegaly. No submental, submandibular, pre- /postauricular, occipital or supraclavicular lymphadenopathy. CHEST: Normal chest expansion. No Telemetry. LUNGS: Scattered expiratory wheezing on bilateral lung [place] per auscultation Absence of any rales and rhonchi CARDIOVASCULAR: Regular. S1 and S2 normal. No appreciable rubs, murmurs or gallops. ABDOMEN: Abdomen is round firm and distended .There is no rebound, voluntary guarding, or rigidity. : Deferred. No Griffin. EXTREMITIES: Traces of edema to bilateral lower extremities. No clubbing. Good capillary refill. SKIN: No skin breakdown. Vital Signs (last 8hr) Date Time Temp Pulse Resp B/P (MAP) Pulse Ox O2 Delivery O2 Flow Rate FiO2 08/31/24 12:00 97.9 87 17 143/51 94 Room Air 08/31/24 10:53 73 20 N/A Room Air 21 08/31/24 10:53 73 20 08/31/24 08:00 97.3 71 17 138/62 97 Room Air 08/31/24 06:40 78 20 N/A Room Air 21 08/31/24 06:40 78 20 LABS: Laboratory: Test 08/31/24 11:49 08/31/24 11:27 08/31/24 10:29 08/30/24 06:34 Range/Units Blood Gas Specimen Type Arterial Arterial Blood pH 7.371 7.350-7.450 Arterial Blood Partial Pressure CO2 24 L 35-48 mmHg Arterial Blood Partial Pressure O2 73.6 L 83.0-108.0 mmHg Arterial Blood HCO3 13.8 L 21.0-28.0 mmol/L Arterial Blood Oxygen Saturation 93.0 L 94.0-98.0 % Arterial Blood Base Excess -10.1 L -2.0-3.0 mmol/L Hemoglobin (Blood Gas) 9.4 L 13.5-17.5 g/dL Sodium (Blood Gas) 131 L 136-145 MMOL/L Bedside Potassium (Blood Gas) 3.7 3.4-4.5 MMOL/L Bedside Chloride (Blood Gas) 102 98-107 MMOL/L Bedside Glucose (Blood Gas) 137 H 65-95 MG/DL Bedside Ionized Calcium (Blood Gas) 1.15 1.15-1.33 MMOL/L Bedside Lactic Acid (Blood Gas) 1.22 H 0.36-0.75 MMOL/L Blood Gas Temperature 37.0 35.5-37.0 CELSIUS Blood Gas Vent Mode ROOM AIR ROOM AIR FiO2 21.0 % Blood Gas Specimen Comment RR PAIGE Whole Blood Glucose 136 H 70-110 MG/DL Sodium Level 134 L 136-145 mmol/L Potassium Level 3.8 3.5-5.1 mmol/L Chloride Level 101 101-111 mmol/L Carbon Dioxide Level 18 L 21-32 mmol/L Blood Urea Nitrogen 91 *H 7-18 mg/dL Creatinine 3.4 H 0.5-1.3 mg/dL Glomerular Filtration Rate Calc 18 >90 mL/min Random Glucose 141 H 70-105 mg/dL Total Calcium 8.3 L 8.5-10.1 mg/dL White Blood Count 10.3 4.8-10.8 K/uL Red Blood Count 2.86 L 4.50-6.20 MIL/uL Hemoglobin 8.7 L 14.0-18.0 g/dL Hematocrit 25.9 L 42-54 % Mean Corpuscular Volume 90.6 79-99 fL Mean Corpuscular Hemoglobin 30.4 27.0-33.0 pg Mean Corpuscular Hemoglobin Concent 33.6 32.0-36.0 g/dL Red Cell Distribution Width 13.9 11.0-15.5 % Platelet Count 232 130-400 K/uL Mean Platelet Volume 9.9 7.5-10.5 fL Immature Granulocyte % (Auto) 0.8 0-1 % Neutrophils (%) (Auto) 86.2 H 40.0-77.0 % Lymphocytes (%) (Auto) 7.9 L 21.0-51.0 % Monocytes (%) (Auto) 5.0 3.0-13.0 % Eosinophils (%) (Auto) 0.0 0.0-8.0 % Basophils (%) (Auto) 0.1 0.0-5.0 % Neutrophils # (Auto) 8.9 H 1.8-7.7 K/uL Lymphocytes # (Auto) 0.8 L 1.0-4.8 K/uL Monocytes # (Auto) 0.5 0.1-1.0 K/uL Eosinophils # (Auto) 0.00 0.00-0.70 K/uL Basophils # (Auto) 0.01 0.00-0.20 K/uL Absolute Immature Granulocyte (auto 0.08 0-1 K/uL Nucleated Red Blood Cells 0.0 0.0-0.19 % Current Medications Medications (Trade) Dose Ordered Sig/Abhijit Route PRN Reason Start Time Stop Time Status Last Admin Dose Admin Acetaminophen (TYLenol 325MG TAB) 650 mg Q4H PRN PO MILD PAIN (1-3) 08/26/24 02:00 09/25/24 01:59 Acetaminophen (TYLenol 325MG TAB) 650 mg Q6H PRN PO TEMPERATURE GREATER THAN 101.5 08/26/24 02:00 09/25/24 01:59 Albuterol (DUOneb) 1 udvial [id number] IH 08/26/24 02:00 09/25/24 01:59 08/31/24 10:51 1 UDVIAL Amlodipine Besylate (NorvASC 5MG TAB) 5 mg DAILY PO 08/27/24 09:00 08/27/24 07:12 DC Budesonide (Pulmicort 0.5 Mg/2ml) 0.5 mg BIDRESP IH 08/26/24 18:00 09/25/24 17:59 08/31/24 06:38 0.5 MG Cefepime HCl (MAXipime 2 gm vial) 2 gm Q12H IVPB 08/26/24 10:00 08/29/24 07:19 DC 08/28/24 23:16 2 GM Ceftriaxone Sodium 1 gm/ Sodium Chloride 50 ml @ 100 mls/hr BID IV 08/26/24 09:00 08/26/24 01:51 DC Ceftriaxone Sodium (ROCEphine 1G INJ) 1 gm BID IVPB 08/26/24 09:00 08/26/24 09:43 DC 08/26/24 09:15 1 GM Dextrose (D50w) 50 ml AD PRN IV HYPOGLYCEMIA PROTOCOL 08/26/24 02:00 09/25/24 01:59 Glucagon (Glucagon 1mg Kit) 1 mg AD PRN IM HYPOGLYCEMIA PROTOCOL 08/26/24 02:00 09/25/24 01:59 Guaifenesin/ Dextromethorphan (RobiTUSSin DM 200/20MG 10ML) 10 ml Q6H PRN PO COUGH 08/31/24 10:30 7/1/25 10:29 Heparin Sodium (Porcine) (HEParin 5,000 UNIT VIAL) 5,000 unit Q12H SQ 08/26/24 21:30 09/25/24 21:29 08/31/24 09:50 5,000 UNIT Hydralazine HCl (APRESOLine 20MG INJ) 10 mg Q6H PRN IV For:SBP above 160;DBP above 90 08/26/24 02:00 09/25/24 01:59 08/27/24 04:00 10 MG Hydralazine HCl ([id number] TAB) 25 mg TID PO 08/26/24 09:00 08/27/24 07:12 DC 08/26/24 21:08 25 MG Hydralazine HCl ([id number] TAB) 50 mg TID PO 08/28/24 09:00 08/28/24 11:31 DC Hydralazine HCl ([id number] TAB) 50 mg TID PO 08/28/24 14:00 09/27/24 13:59 08/31/24 09:47 50 MG Hydralazine HCl ([id number] TAB) 100 mg TID PO 08/27/24 09:00 08/28/24 07:38 DC 08/27/24 09:22 100 MG Hydrochlorothiazide (hydroCHLOROthiazide 25MG) 25 mg DAILY PO 08/29/24 09:00 08/28/24 12:07 DC Insulin Glargine (LANtus 100 UNITS/ML 10 ML VIAL) 10 units BID@0730,2100 SQ 08/29/24 07:30 09/28/24 07:29 08/31/24 06:33 10 UNITS Insulin Human Regular (humuLIN R 100 UNIT/ML 3ML) INSULIN SLIDING SCAL... ACHS SQ 08/26/24 07:30 09/25/24 07:29 08/30/24 22:16 2 UNIT Labetalol HCl (TRANdate 20MG SYG) 10 mg Q6H PRN IV IF SBP GREATER THAN 170 08/26/24 02:00 09/25/24 01:59 08/27/24 05:41 10 MG Lactulose (Constulose 20gm/ 30ml Udcup) 20 gm BID PRN PO CONSTIPATION 08/31/24 13:00 09/30/24 12:59 Losartan Potassium (CozAAR 50 mg TAB) 50 mg BID PO 08/27/24 09:00 08/31/24 10:00 DC 08/31/24 09:46 50 MG Magnesium Sulfate 50 ml @ 0 mls/hr PROTOCOL PRN IV OTHER [SEE ORDER COMMENTS] 08/26/24 02:00 09/25/24 01:59 08/26/24 17:15 50 MLS/HR Methylprednisolone Sodium Succinate (Solu-medROL 40MG) 20 mg Q8H IVP 08/29/24 06:00 08/31/24 12:05 DC 08/31/24 06:33 20 MG Methylprednisolone Sodium Succinate (Solu-medROL 40MG) 40 mg BID IVP 08/27/24 21:00 08/28/24 20:59 DC 08/28/24 09:24 40 MG Metoprolol Tartrate (loprESSOR) 100 mg BID PO 08/26/24 09:00 09/25/24 08:59 08/31/24 09:46 100 MG Montelukast Sodium (SinguLAIR) 10 mg DAILY PO 08/27/24 09:00 09/26/24 08:59 08/31/24 09:46 10 MG Morphine Sulfate (morPHINE 2MG SYG) 2 mg Q4H PRN IV MODERATE PAIN (4-6) 08/26/24 02:00 08/31/24 04:59 DC 08/26/24 06:37 2 MG Nicardipine HCl 20 mg/Sodium Chloride 200 ml @ 0 mls/hr AD PRN IV TITRATE 08/26/24 03:00 08/26/24 02:45 DC Nicardipine HCl 25 mg/Sodium Chloride 250 ml @ 0 mls/hr AD PRN IV TITRATE 08/26/24 03:00 08/27/24 18:03 DC 08/27/24 06:46 50 MLS/HR Nifedipine (adALAT 30MG) 30 mg BID PO 08/28/24 09:00 09/27/24 08:59 08/31/24 09:46 30 MG Nifedipine (adALAT 30MG) 60 mg BID PO 08/27/24 09:00 08/28/24 07:38 DC 08/27/24 07:42 60 MG Ondansetron HCl (zoFRAN 4MG INJ) 4 mg Q6H PRN IV NAUSEA/VOMITING 08/26/24 02:00 09/25/24 01:59 Pantoprazole Sodium (PROTonix 40MG INJ) 40 mg DAILY IVP 08/27/24 09:00 09/26/24 08:59 08/31/24 09:47 40 MG Potassium Chloride 100 ml @ 100 mls/hr AD PRN IV POTASSIUM PROTOCOL 08/26/24 02:00 09/25/24 01:59 Potassium Chloride (K-Dur 10meq Sr Tab) 10 meq AD PRN PO POTASSIUM PROTOCOL 08/26/24 18:00 09/25/24 01:59 08/30/24 12:08 10 MEQ Potassium Chloride (K-Dur/Klor-Con 20meq) 10 meq AD PRN PO POTASSIUM PROTOCOL 08/26/24 02:00 08/26/24 17:48 DC Potassium Chloride (KCl 10% Elixir 20meq/15ml) 10 meq AD PRN PO POTASSIUM PROTOCOL 08/26/24 02:00 09/25/24 01:59 Sodium Bicarbonate (Sodium Bicarbonate) 650 mg TID PO 08/28/24 14:00 09/27/24 13:59 08/31/24 09:46 650 MG Sodium Chloride 1,000 ml @ 50 mls/hr Q20H IV 08/26/24 21:00 08/27/24 13:59 DC 08/26/24 21:08 50 MLS/HR Tamsulosin HCl (FloMAX) 0.4 mg BID PO 08/26/24 21:00 09/25/24 20:59 08/31/24 09:46 0.4 MG Vancomycin HCl 250 ml @ 125 mls/hr Q24H IV 08/27/24 12:00 08/29/24 07:19 DC 08/28/24 11:27 125 MLS/HR Vancomycin HCl (Vancomycin Protocol) 1 each AD IV 08/26/24 10:00 08/29/24 07:19 DC Vitamin B Complex/ Vit C/Folic Acid (Nephrovite Tablet) 1 cap DAILY PO 08/26/24 09:00 09/25/24 08:59 08/31/24 09:46 1 CAP Wound Care/ Dressing Products (Venelex Ointment) 1 APPL TID TP 08/26/24 21:00 09/25/24 20:59 08/31/24 09:47 1 GM DIAGNOSTICS / RADIOLOGY: [ ] ASSESSMENT: Sepsis POA Possible pyelonephritis POA Acute kidney injury POA Kidney stone POA Hypertensive urgency POA Acute normocytic normochromic anemia POA Acute leukocytosis POA CHF POA Debility POA Diabetes POA Hyponatremia POA Dehydration POA Hyperlipidemia POA 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 Atrial fibrillation on chronic anticoagulation POA Sacral ulcer POA PLAN: Continue losartan 50mg BID Continue nifedipine to 30mg BID Continue hydralazine to 50mg TID Continue tamsulosin Follow up on ABG Discontinue empiric anbiotics, cultures are no growth to date Continue duonebs Continue budesonide Continue systemic steroids Continue sliding scale Continue hypoglycemia protocol Nephrology consulted, appreciate recommendations Disposition: Pending improvement in renal function and placement to SNF AYDEE CARRANZA MD Aug 31, 2024 14:15
[2024-08-31] MEDS: LACTULOSE 20 GM/30 ML UDCUP PO PRN (15:41)
[2024-08-31 18:47] LABS: ADD UA MICROSCOPIC YES; APPEARANCE,URINE CLEAR (CLEAR); BILIRUBIN,URINE NEGATIVE (NEGATIVE); COLOR,URINE LIGHT-YELLOW (YELLOW); GLUCOSE, URINE (UA) 50 mg/dL (NEGATIVE); KETONES,URINE NEGATIVE (NEGATIVE); LEUKOCYTE ESTERASE ,URINE NEGATIVE Leu/uL (NEGATIVE); NITRATE,URINE NEGATIVE (NEGATIVE); PROTEIN,URINE 200 mg/dL (NEGATIVE); UROBILINOGEN,URINE 0.2 mg/dL (0.2-1.0)
[2024-08-31 18:56] LABS: BACTERIA,URINE RARE /HPF (None Seen); MUCUS,URINE RARE LPF (None Seen); RBC,URINE 0-1 /HPF (0-1); SQUAMOUS EPITHELIAL CELL,UR RARE /HPF (0-2); UNCLASSIFIED CRYSTAL 1 /HPF (None Seen)
[2024-09-01] VITALS (11 sets, daily range): BP systolic 126–161; BP diastolic 45–66; PULSE 67–83; RESP 20–24; TEMP 97.4–97.7; O2SAT 95–98
[2024-09-01 06:10] LABS: HEMATOCRIT 25.4 % (42-54); MEAN CORPUSCULAR HEMOGLOBIN 30.4 pg (27.0-33.0); MEAN CORPUSCULAR HGB CONC 33.9 g/dL (32.0-36.0); MEAN CORPUSCULAR VOLUME 89.8 fL (79-99); NUCLEATED RED BLOOD CELLS 0.2 % (0.0-0.19); RED BLOOD CELL COUNT(AUTO) 2.83 MIL/uL (4.50-6.20); WHITE BLOOD COUNT (AUTO) 12.3 K/uL (4.8-10.8)
[2024-09-01 06:29] LABS: % IRON SATURATION 48.6 % (30-44)
[2024-09-01 06:41] LABS: ALBUMIN 2.6 g/dL (3.5-5.0); BILIRUBIN,TOTAL 0.3 mg/dL (0.2-1.0); CREATININE 3.3 mg/dL (0.5-1.3); MAGNESIUM 2.8 mg/dL (1.80-2.40); PHOSPHORUS 5.7 mg/dL (2.5-4.9); POTASSIUM 3.2 mmol/L (3.5-5.1); THYROID STIMULATING HORMONE 0.78 uIU/mL (0.36-3.74); TOTAL PROTEIN, SERUM 5.9 g/dL (6.0-8.3); URIC ACID 13.4 mg/dL (2.6-7.2)
--- NOTE | 2024-09-01 09:13 | NUR ---
MED HOLD HELD THE ADALAT, APRESOLINE, AND LOPRESSOR FOR BP OF 126/45. NOTIFIED.
--- NOTE | 2024-09-01 09:42 | PN ---
FOLLOWUP PROGRESS NOTE SUBJECTIVE: An 78-year-old male with history of diabetes mellitus and hypertension. He has a history of known coronary artery disease. The patient is status post AICD placement. The patient presented to the hospital with acute on chronic renal failure. The patient's creatinine has been elevated. The patient's urine output has been marginal. Losartan has been placed on hold. He was given IV hydration and the patient is being seen as a followup visit for all of the above. REVIEW OF SYSTEMS: CONSTITUTIONAL: The patient is feeling weak and tired. HEENT: No change in vision. No change in hearing. CARDIOVASCULAR: There is no current chest pain or palpitations. PULMONARY: He denies shortness of breath. GASTROINTESTINAL: He is tolerating some on diet. MUSCULOSKELETAL: Complains of weakness. PHYSICAL EXAMINATION: VITAL SIGNS: Blood pressure is 161/54, pulse 70, he is afebrile. GENERAL: He is a chronically ill male, elderly, lying in bed on the medical floor. HEENT: Head is atraumatic. Pupils are equal, roving to light. Oropharynx is without exudate. Nares clear. NECK: There is no JVP. There is no thyromegaly. No mass. CARDIOVASCULAR: Regular. There is no S3, S4 or gallop. LUNGS: Coarse with equal thoracic movement. ABDOMEN: Soft, nondistended and nontender. EXTREMITIES: He has minimal edema. NEUROLOGICAL: He is awake. He is alert. LABORATORY DATA: Sodium 137, potassium 3.2, BUN 93, creatinine is 3.3. Iron levels are noted. Hemoglobin 8.6, hematocrit 25. IMPRESSION: * Acute on chronic renal failure. * Coronary artery disease. * Diabetes mellitus. * Hypertension. * Anemia. PLAN: The patient does have significant renal dysfunction. The patient's creatinine did stabilize overnight. We will obtain a bladder scan for completeness. Potassium has been aggressively repleted. The patient does have significant anemia of chronic disease. He will be started on Procrit injections while in the hospital. We will continue to follow closely. All labs will be repeated in the morning. There is no need for any form of renal replacement therapy at this time. TID: [id number] RECEIPT: [id number]
--- NOTE | 2024-09-01 09:48 | PN ---
[facility] PROGRESS NOTE Date of Service: Sep 01, 2024 Time of Service: 09:46 SUBJECTIVE: 08/27 Pt seen at bedside, no acute events overnight. Pt weaned off cardene drip, started on PO medications. Will monitor throughout the day and possibly dc tomorrow if BP remains stable 08/28 Pt seen at bedside, no acute events overnight. Pt blood pressure well controlled however he has significant wheeze, rhoncous breathing and cough. Will continue with nebulizers and systemic steroid treatment. CO2 low, will order ABG and follow up. Pt mildly delirius today but responds appropriately 08/29 patient seen at bedside, no acute events overnight. He is still has prominent wheeze and rhonchus breathing. There was no evidence of pneumonia on initial workup, chest x-ray was clear and procalcitonin was in normal range. We will discontinue antibiotics at this time and continue with nebulizers and systemic steroids. As patient has been somewhat confused holding cefepime may help improve his mental status however he is also on systemic steroids which can also contribute to some delirium. Physical therapy recommending intermediate for rehab, we will consult case management for placement. Patient blood sugars have been elevated we will start glargine 10 units twice daily. Creatinine increased from 2.3 up to 2.8, patient was started on bicarbonate yesterday, we will continue to monitor his urine output. 08/30 patient seen at bedside, no acute events overnight. His wheeze has improved significantly today, he is sitting at bedside on room air now. We will continue with nebulizers and systemic steroids. He is pending placement to intermediate. 08/31 patient seen at bedside, no acute events overnight. He has no complaints at bedside, breathing appears to be improved, he continues on room air. Family recommending intermediate placement. His BUN/creatinine continue to up trend to 91 and 3.4. He has no history of heart failure, we will bolus 1 L and follow up with his renal function tomorrow. Nephrology consulted for further recommendations. 09/01 blood pressure 126/45, afebrile, saturating normal on room air. CBC shows a hemoglobin of 8.6, hematocrit 25.4, WBC of 12.3, platelet count of 252. Sodium 137, potassium 3.2, BUN of 93, creatinine of 3.3, bicarb of 20. ABG with a pH of 7.37, pCO2 24, bicarbonate of 13.8. Currently the patient on sodium bicarbonate 650 mg p.o. t.i.d.. Nephrology consultation requested, continue to follow input and recommendations. Family recommended intermediate facility, we will discuss with case management. REVIEW OF SYSTEMS 12 point ROS negative unless noted in HPI PHYSICAL EXAM GENERAL APPEARANCE: The patient is awake, alert, and oriented, in no acute card iopulmonary distress. NEUROLOGICAL: Cranial nerves II-XII grossly intact. Motor is 5/5 in bilateral upper and lower extremities proximal to distal. No sensory deficits. HEENT: Face is symmetric. Pupils are equal and reactive. Extraocular movements are intact. NECK: Supple. No JVD. No thyromegaly. No submental, submandibular, pre- /postauricular, occipital or supraclavicular lymphadenopathy. CHEST: Normal chest expansion. No Telemetry. LUNGS: Scattered expiratory wheezing on bilateral lung [place] per auscultation Absence of any rales and rhonchi CARDIOVASCULAR: Regular. S1 and S2 normal. No appreciable rubs, murmurs or gallops. ABDOMEN: Abdomen is round firm and distended .There is no rebound, voluntary guarding, or rigidity. : Deferred. No Griffin. EXTREMITIES: Traces of edema to bilateral lower extremities. No clubbing. Good capillary refill. SKIN: No skin breakdown. Vital Signs (last 8hr) Date Time Temp Pulse Resp B/P (MAP) Pulse Ox O2 Delivery O2 Flow Rate FiO2 09/01/24 08:00 97.3 72 20 126/45 95 Room Air 09/01/24 07:20 75 20 N/A Room Air 21 09/01/24 07:19 75 20 09/01/24 04:00 97.5 70 24 161/54 95 Room Air LABS: Laboratory: Test 09/01/24 05:54 09/01/24 05:39 08/31/24 17:57 08/31/24 11:49 Range/Units White Blood Count 12.3 H 4.8-10.8 K/uL Red Blood Count 2.83 L 4.50-6.20 MIL/uL Hemoglobin 8.6 L 14.0-18.0 g/dL Hematocrit 25.4 L 42-54 % Mean Corpuscular Volume 89.8 79-99 fL Mean Corpuscular Hemoglobin 30.4 27.0-33.0 pg Mean Corpuscular Hemoglobin Concent 33.9 32.0-36.0 g/dL Red Cell Distribution Width 14.0 11.0-15.5 % Platelet Count 252 130-400 K/uL Mean Platelet Volume 9.3 7.5-10.5 fL Nucleated Red Blood Cells 0.2 H 0.0-0.19 % Sodium Level 137 136-145 mmol/L Potassium Level 3.2 L 3.5-5.1 mmol/L Chloride Level 103 101-111 mmol/L Carbon Dioxide Level 20 L 21-32 mmol/L Blood Urea Nitrogen 93 *H 7-18 mg/dL Creatinine 3.3 H 0.5-1.3 mg/dL Glomerular Filtration Rate Calc 18 >90 mL/min Random Glucose 65 #L 70-105 mg/dL Uric Acid 13.4 H 2.6-7.2 mg/dL Total Calcium 8.3 L 8.5-10.1 mg/dL Phosphorus Level 5.7 H 2.5-4.9 mg/dL Magnesium Level 2.80 H 1.80-2.40 mg/dL Iron Level 72 # 65-175 mcg/dL Total Iron Binding Capacity 148 L 250-450 mcg/dL Percent Iron Saturation 48.6 H 30-44 % Ferritin 779 H 30-400 ng/mL Total Bilirubin 0.3 0.2-1.0 mg/dL Aspartate Amino Transf (AST/SGOT) 18 10-37 U/L Alanine Aminotransferase (ALT/SGPT) 24 12-78 U/L Alkaline Phosphatase 43 L 50-136 U/L Total Protein 5.9 L 6.0-8.3 g/dL Albumin 2.6 L 3.5-5.0 g/dL Thyroid Stimulating Hormone (TSH) 0.78 # 0.36-3.74 uIU/mL Whole Blood Glucose 58 L 70-110 MG/DL Bedside Glucose Comment Notified Nurse Urine Color LIGHT-YELLOW YELLOW Urine Appearance CLEAR CLEAR Urine pH 6.0 5.0-8.0 Urine Specific [place] 1.013 1.001-1.031 Urine Protein 200 H NEGATIVE mg/dL Urine Glucose (UA) 50 H NEGATIVE mg/dL Urine Ketones NEGATIVE NEGATIVE mg/dL Urine Occult Blood +- (TRACE) H NEGATIVE Urine Nitrate NEGATIVE NEGATIVE Urine Bilirubin NEGATIVE NEGATIVE mg/dL Urine Urobilinogen 0.2 0.2-1.0 mg/dL Urine Leukocyte Esterase NEGATIVE NEGATIVE Coby/uL Urine RBC 0-1 0-1 /HPF Urine WBC 2-5 H 0-1 /HPF Urine Squamous Epithelial Cells RARE 0-2 /HPF Urine Other Crystals (Auto) 1 None Seen /HPF Urine Bacteria RARE None Seen /HPF Blood Gas Specimen Type Arterial Arterial Blood pH 7.371 7.350-7.450 Arterial Blood Partial Pressure CO2 24 L 35-48 mmHg Arterial Blood Partial Pressure O2 73.6 L 83.0-108.0 mmHg Arterial Blood HCO3 13.8 L 21.0-28.0 mmol/L Arterial Blood Oxygen Saturation 93.0 L 94.0-98.0 % Arterial Blood Base Excess -10.1 L -2.0-3.0 mmol/L Hemoglobin (Blood Gas) 9.4 L 13.5-17.5 g/dL Sodium (Blood Gas) 131 L 136-145 MMOL/L Bedside Potassium (Blood Gas) 3.7 3.4-4.5 MMOL/L Bedside Chloride (Blood Gas) 102 98-107 MMOL/L Bedside Glucose (Blood Gas) 137 H 65-95 MG/DL Bedside Ionized Calcium (Blood Gas) 1.15 1.15-1.33 MMOL/L Bedside Lactic Acid (Blood Gas) 1.22 H 0.36-0.75 MMOL/L Blood Gas Temperature 37.0 35.5-37.0 CELSIUS Blood Gas Vent Mode ROOM AIR ROOM AIR FiO2 21.0 % Blood Gas Specimen Comment RR PAIGE Current Medications Medications (Trade) Dose Ordered Sig/Abhijit Route PRN Reason Start Time Stop Time Status Last Admin Dose Admin Acetaminophen (TYLenol 325MG TAB) 650 mg Q4H PRN PO MILD PAIN (1-3) 08/26/24 02:00 09/25/24 01:59 Acetaminophen (TYLenol 325MG TAB) 650 mg Q6H PRN PO TEMPERATURE GREATER THAN 101.5 08/26/24 02:00 09/25/24 01:59 Albuterol (DUOneb) 1 udvial [id number] IH 08/26/24 02:00 09/25/24 01:59 09/01/24 07:18 1 UDVIAL Amlodipine Besylate (NorvASC 5MG TAB) 5 mg DAILY PO 08/27/24 09:00 08/27/24 07:12 DC Budesonide (Pulmicort 0.5 Mg/2ml) 0.5 mg BIDRESP IH 08/26/24 18:00 09/25/24 17:59 09/01/24 07:18 0.5 MG Cefepime HCl (MAXipime 2 gm vial) 2 gm Q12H IVPB 08/26/24 10:00 08/29/24 07:19 DC 08/28/24 23:16 2 GM Ceftriaxone Sodium 1 gm/ Sodium Chloride 50 ml @ 100 mls/hr BID IV 08/26/24 09:00 08/26/24 01:51 DC Ceftriaxone Sodium (ROCEphine 1G INJ) 1 gm BID IVPB 08/26/24 09:00 08/26/24 09:43 DC 08/26/24 09:15 1 GM Dextrose (D50w) 50 ml AD PRN IV HYPOGLYCEMIA PROTOCOL 08/26/24 02:00 09/25/24 01:59 Glucagon (Glucagon 1mg Kit) 1 mg AD PRN IM HYPOGLYCEMIA PROTOCOL 08/26/24 02:00 09/25/24 01:59 Guaifenesin/ Dextromethorphan (RobiTUSSin DM 200/20MG 10ML) 10 ml Q6H PRN PO COUGH 08/31/24 10:30 09/30/24 10:29 Heparin Sodium (Porcine) (HEParin 5,000 UNIT VIAL) 5,000 unit Q12H SQ 08/26/24 21:30 09/25/24 21:29 09/01/24 09:03 5,000 UNIT Hydralazine HCl (APRESOLine 20MG INJ) 10 mg Q6H PRN IV For:SBP above 160;DBP above 90 08/26/24 02:00 09/25/24 01:59 08/27/24 04:00 10 MG Hydralazine HCl ([id number] TAB) 25 mg TID PO 08/26/24 09:00 08/27/24 07:12 DC 08/26/24 21:08 25 MG Hydralazine HCl ([id number] TAB) 50 mg TID PO 08/28/24 09:00 08/28/24 11:31 DC Hydralazine HCl ([id number] TAB) 50 mg TID PO 08/28/24 14:00 09/27/24 13:59 08/31/24 21:50 50 MG Hydralazine HCl ([id number] TAB) 100 mg TID PO 08/27/24 09:00 08/28/24 07:38 DC 08/27/24 09:22 100 MG Hydrochlorothiazide (hydroCHLOROthiazide 25MG) 25 mg DAILY PO 08/29/24 09:00 08/28/24 12:07 DC Insulin Glargine (LANtus 100 UNITS/ML 10 ML VIAL) 10 units BID@0730,2100 SQ 08/29/24 07:30 09/28/24 07:29 08/31/24 21:46 10 UNITS Insulin Human Regular (humuLIN R 100 UNIT/ML 3ML) INSULIN SLIDING SCAL... ACHS SQ 08/26/24 07:30 09/25/24 07:29 08/31/24 21:49 3 UNIT Labetalol HCl (TRANdate 20MG SYG) 10 mg Q6H PRN IV IF SBP GREATER THAN 170 08/26/24 02:00 09/25/24 01:59 08/27/24 05:41 10 MG Lactulose (Constulose 20gm/ 30ml Udcup) 20 gm BID PRN PO CONSTIPATION 08/31/24 13:00 09/30/24 12:59 08/31/24 15:41 20 GM Losartan Potassium (CozAAR 50 mg TAB) 50 mg BID PO 08/27/24 09:00 08/31/24 10:00 DC 08/31/24 09:46 50 MG Magnesium Sulfate 50 ml @ 0 mls/hr PROTOCOL PRN IV OTHER [SEE ORDER COMMENTS] 08/26/24 02:00 09/25/24 01:59 08/26/24 17:15 50 MLS/HR Methylprednisolone Sodium Succinate (Solu-medROL 40MG) 20 mg Q8H IVP 08/29/24 06:00 08/31/24 12:05 DC 08/31/24 06:33 20 MG Methylprednisolone Sodium Succinate (Solu-medROL 40MG) 40 mg BID IVP 08/27/24 21:00 08/28/24 20:59 DC 08/28/24 09:24 40 MG Metoprolol Tartrate (loprESSOR) 100 mg BID PO 08/26/24 09:00 09/25/24 08:59 08/31/24 21:50 100 MG Montelukast Sodium (SinguLAIR) 10 mg DAILY PO 08/27/24 09:00 09/26/24 08:59 09/01/24 08:59 10 MG Morphine Sulfate (morPHINE 2MG SYG) 2 mg Q4H PRN IV MODERATE PAIN (4-6) 08/26/24 02:00 08/31/24 04:59 DC 08/26/24 06:37 2 MG Nicardipine HCl 20 mg/Sodium Chloride 200 ml @ 0 mls/hr AD PRN IV TITRATE 08/26/24 03:00 08/26/24 02:45 DC Nicardipine HCl 25 mg/Sodium Chloride 250 ml @ 0 mls/hr AD PRN IV TITRATE 08/26/24 03:00 08/27/24 18:03 DC 08/27/24 06:46 50 MLS/HR Nifedipine (adALAT 30MG) 30 mg BID PO 08/28/24 09:00 09/27/24 08:59 08/31/24 21:50 30 MG Nifedipine (adALAT 30MG) 60 mg BID PO 08/27/24 09:00 08/28/24 07:38 DC 08/27/24 07:42 60 MG Ondansetron HCl (zoFRAN 4MG INJ) 4 mg Q6H PRN IV NAUSEA/VOMITING 08/26/24 02:00 09/25/24 01:59 Pantoprazole Sodium (PROTonix 40MG INJ) 40 mg DAILY IVP 08/27/24 09:00 09/26/24 08:59 09/01/24 08:59 40 MG Potassium Chloride 100 ml @ 100 mls/hr AD PRN IV POTASSIUM PROTOCOL 08/26/24 02:00 09/25/24 01:59 Potassium Chloride (K-Dur 10meq Sr Tab) 10 meq AD PRN PO POTASSIUM PROTOCOL 08/26/24 18:00 09/25/24 01:59 08/31/24 17:18 10 MEQ Potassium Chloride (K-Dur/Klor-Con 20meq) 10 meq AD PRN PO POTASSIUM PROTOCOL 08/26/24 02:00 08/26/24 17:48 DC Potassium Chloride (KCl 10% Elixir 20meq/15ml) 10 meq AD PRN PO POTASSIUM PROTOCOL 08/26/24 02:00 09/25/24 01:59 Sodium Bicarbonate (Sodium Bicarbonate) 650 mg TID PO 08/28/24 14:00 09/27/24 13:59 09/01/24 08:59 650 MG Sodium Chloride 1,000 ml @ 50 mls/hr Q20H IV 08/26/24 21:00 08/27/24 13:59 DC 08/26/24 21:08 50 MLS/HR Tamsulosin HCl (FloMAX) 0.4 mg BID PO 08/26/24 21:00 09/25/24 20:59 09/01/24 08:58 0.4 MG Vancomycin HCl 250 ml @ 125 mls/hr Q24H IV 08/27/24 12:00 08/29/24 07:19 DC 08/28/24 11:27 125 MLS/HR Vancomycin HCl (Vancomycin Protocol) 1 each AD IV 08/26/24 10:00 08/29/24 07:19 DC Vitamin B Complex/ Vit C/Folic Acid (Nephrovite Tablet) 1 cap DAILY PO 08/26/24 09:00 09/25/24 08:59 09/01/24 08:58 1 CAP Wound Care/ Dressing Products (Venelex Ointment) 1 APPL TID TP 08/26/24 21:00 09/25/24 20:59 09/01/24 09:04 1 GM DIAGNOSTICS / RADIOLOGY: [ ] ASSESSMENT: Sepsis POA Possible pyelonephritis POA Acute kidney injury POA Kidney stone POA Hypertensive urgency POA Acute normocytic normochromic anemia POA Acute leukocytosis POA CHF POA Debility POA Diabetes POA Hyponatremia POA Dehydration POA Hyperlipidemia POA 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
[2024-09-01 10:08] LABS: ABG BASE EXCESS -7.8 mmol/L (-2.0-3.0); ABG HCO3 15.3 mmol/L (21.0-28.0); ABG OXYGEN SATURATION 95.6 % (94.0-98.0); ABG PCO2 26 mmHg (35-48); ABG PH 7.388 (7.350-7.450); PO2, ARTERIAL BG 77.8 mmHg (83.0-108.0); VENT MODE, BG RA (ROOM AIR)
--- NOTE | 2024-09-01 11:03 | NUR ---
NOTIFIED NOTIFIED OF BUN 92 AND CREATINE OF 3.3. PER DR VANESSA SONG TO GIVE POTASSIUM TABLETS 40MG.
[2024-09-01] MEDS: PoTASSium chloRIDE 20MEQ ER 20 MEQ ERTAB PO ONE (11:08)
--- NOTE | 2024-09-01 11:18 | PN ---
[facility] PROGRESS NOTE Date Patient Seen: Sep 01, 2024 Time of Visit: 11:15 Supervising Physician: [Dr. Barker] Primary Care Physician: [Dr. Freida Izaguirre] Outpatient Specialists: [ ] Inpatient Consults: [ ] PROBLEM LIST: Sepsis secondary to pyelonephritis, improved Acute kidney injury in chronic kidney disease, prerenal, decompensated Metabolic acidosis with incomplete respiratory compensation Acute delirium, not POA, mild Hypertensive urgency, resolved Non-obstructive R-renal pelvic calculus, 7mm per CT abdomen, no calculi per renal U/S CAD s/p remote CABG Chronic A-fib on eliquis outpatient PPM/AICD status Sacral ulcer Plan: Renally adjust meds, avoid nephrotoxins Continue oral antihypertensives, monitor BP DC losartan and morphine Continue IV solumedrol Discontinue cefepime and vancomycin Blood and urine culture negative Supplemental oxygen as needed, wean off as tolerated Wound care consult for sacral ulcer Follow echocardiogram results Renal ultrasound consistent with renal parenchymal disease Continue Flomax b.i.d. DC IVF Monitor labs and vitals Repeat labs in a.m. 6min walk prior to DC Further management per hospital course INTERVAL HISTORY: [Patient is evaluated at bedside. He has weaned off Cardene drip since this a.m., has initiated antihypertensive medication by mouth with improvement in blood pressure. He appears edematous to bilateral lower extremities. Admits some nausea but no vomiting, is tolerating clear diet well. He has mild end expiratory wheezing but is saturating well on room air. WBC improved to 11 today, creatinine remains elevated but is improved to 1.9 today. His renal ultrasound is consistent with renal parenchymal disease. FENA labs suggest prerenal KEVIN. His blood and urine cultures remained negative. Patient okay to downgrade to Med/surg.] 08/28 patient is evaluated at bedside. His white count is downtrending, continues on IV antibiotics. No fever noted overnight. Blood and urine cultures are negative. He was given a dose of Lasix yesterday, and initiated on oral antihypertensive with improvement of blood pressure. His blood pressure was soft this morning with some BP meds held for the same. Renal ultrasound shows no calculi. Per nurse, patient appeared somewhat confused and combative this morning but has since improved. Daughter at bedside states patient normally at this way whenever he is admitted into the hospital. Ammonia lab d rawn was within normal limits. ABG was requested which revealed mild metabolic acidosis with incomplete respiratory compensation. 08/29 Patient is evaluated at bedside. He continues with end-expiratory wheezing bilaterally. He denies a hx of COPD or smoking. Has never seen a director of public works outpatient. His antibiotics were discontinued. Blood and urine cultures remain negative. Echocardiogram is within normal limits with EF of 50-55%. 08/30 patient is evaluated at bedside. He continues with shortness of breath, even at rest. His creatinine has significantly evaluated to 3.0 today, he is currently receiving IV fluids. Repeat ABG shows mild metabolic acidosis with incomplete respiratory compensation but is improved from previous. Per nursing staff, patient was unable to tolerate 6 minute walk yesterday due to shortness of breaths, however was saturating well. His antibiotics have been discontinued, CBC is unremarkable. Repeat CXR today is unremarkable. He continues with mild end-expiratory wheezing bilaterally. 08/31 patient is evaluated at bedside. He was weaned off supplemental oxygen now on room air. His wheezing is improved. Blood pressure is within normal limits. He has 350 mL of documented urine output in last 24 hours. His creatinine is worsened to 3.4 today. Blood and urine cultures remained negative. 09/01 patient is evaluated at bedside. He continues on room air. Blood pressure is within normal limits. His respiratory status improved but continues with mild end-expiratory wheezing which seems chronic. Repeat ABG is improved. CBC is grossly unremarkable. Creatinine remains persistently elevated, nephrology is following. Patient is stable for discharge from pulmonary standpoint. His KEVIN is being addressed by primary and nephrology prior to discharge. REVIEW OF SYSTEMS: 12 point ROS reviewed with patient. Pertinent positives mentioned above. Otherwise negative. PHYSICAL EXAM: GENERAL: alert, weak, awake oriented x 3, no acute distress HEENT: EOMI, Sclera non icteric, moist mucosa NECK: Supple, no JVD, trachea midline LUNGS: Clear breath sounds bilaterally. bilateral end-expiratory wheezing, on 3LNC HEART: Regular rate and rhythm. Normal S1 and S2, without murmurs ABD: Abdomen discomfort with palpation. Bowel sounds present, CVA tenderness bilaterally EXT: No clubbing cyanosis or edema NEURO: Alert and oriented to person, follows commands Vital Signs (last 8hr) Date Time Temp Pulse Resp B/P (MAP) Pulse Ox O2 Delivery O2 Flow Rate FiO2 09/01/24 08:00 97.3 72 20 126/45 95 Room Air 09/01/24 07:20 75 20 N/A Room Air 21 09/01/24 07:19 75 20 09/01/24 04:00 97.5 70 24 161/54 95 Room Air LABS: Hematology Labs: Test 09/01/24 05:54 Range/Units White Blood Count 12.3 H 4.8-10.8 K/uL Red Blood Count 2.83 L 4.50-6.20 MIL/uL Hemoglobin 8.6 L 14.0-18.0 g/dL Hematocrit 25.4 L 42-54 % Mean Corpuscular Volume 89.8 79-99 fL Mean Corpuscular Hemoglobin 30.4 27.0-33.0 pg Mean Corpuscular Hemoglobin Concent 33.9 32.0-36.0 g/dL Red Cell Distribution Width 14.0 11.0-15.5 % Platelet Count 252 130-400 K/uL Mean Platelet Volume 9.3 7.5-10.5 fL Nucleated Red Blood Cells 0.2 H 0.0-0.19 % Chemistry Labs: Test 09/01/24 05:54 09/01/24 05:39 Range/Units Sodium Level 137 136-145 mmol/L Potassium Level 3.2 L 3.5-5.1 mmol/L Chloride Level 103 101-111 mmol/L Carbon Dioxide Level 20 L 21-32 mmol/L Blood Urea Nitrogen 93 *H 7-18 mg/dL Creatinine 3.3 H 0.5-1.3 mg/dL Glomerular Filtration Rate Calc 18 >90 mL/min Random Glucose 65 #L 70-105 mg/dL Uric Acid 13.4 H 2.6-7.2 mg/dL Total Calcium 8.3 L 8.5-10.1 mg/dL Phosphorus Level 5.7 H 2.5-4.9 mg/dL Magnesium Level 2.80 H 1.80-2.40 mg/dL Iron Level 72 # 65-175 mcg/dL Total Iron Binding Capacity 148 L 250-450 mcg/dL Percent Iron Saturation 48.6 H 30-44 % Ferritin 779 H 30-400 ng/mL Total Bilirubin 0.3 0.2-1.0 mg/dL Aspartate Amino Transf (AST/SGOT) 18 10-37 U/L Alanine Aminotransferase (ALT/SGPT) 24 12-78 U/L Alkaline Phosphatase 43 L 50-136 U/L Total Protein 5.9 L 6.0-8.3 g/dL Albumin 2.6 L 3.5-5.0 g/dL Thyroid Stimulating Hormone (TSH) 0.78 # 0.36-3.74 uIU/mL Whole Blood Glucose 58 L 70-110 MG/DL Bedside Glucose Comment Notified Nurse DIAGNOSTICS / RADIOLOGY RESULTS: [ ] PLAN NEURO: Minimize central acting medications as possible. Maintain fall precautions, adequate lighting during the day PULMONARY: Supplemental 02 as needed. Maintain aspiration precautions at all times CARDIOVASCULAR: Follow hemodynamics. Vital signs per facility protocol GI & NUTRITION: Continue with nutritional support. Continue stool softeners and laxatives as needed. KIDNEYS & ELECTROLYTES: Strict monitoring of intake, output and overall fluid balance. Avoid nephrotoxic medications to the extent possible. Medications to be dosed according to renal function. Monitor electrolytes and replace as needed ENDOCRINE: Maintain blood glucose between 100-180 at all times. Hypoglycemia protocol in place INFECTIOUS DISEASE: Trend temperature, WBC and procalcitonin level Follow cultures, deescalate antibiotics as soon as possible. Panculture if new onset fever ONCOLOGY/HEMATOLOGY/COAGULATION: Monitor for s/s of bleeding Monitor hemoglobin, coagulation studies as needed SKIN: Pressure ulcer prevention per facility protocol Specialty mattress ORTHO/REHAB: Continue PT/OT Prophylaxis: Continue GI and DVT prophylaxis Code Status: Full Resuscitation Disposition: TBD Other: Time spent on patient care exceeds 45 minutes. This does not include any time spent on procedures. JORGE VILLANUEVA Sep 01, 2024 11:18
--- NOTE | 2024-09-01 11:50 | NUR ---
BLADDER SCAN BLADDER SCAN DONE ORDERED PT URINE OUTPUT SHOWED [address] OTERO MADE AWARE. NO ORDERS AT THIS TIME. Addendum: 09/01/24 at 1254 by MARTHA RHODES LVN LVN [address] OTERO FOR NOTIFICATION. PENDING CALL BACK.
--- NOTE | 2024-09-01 15:17 | HMCIMG ---
ABD 1VW REASON: RULE OUT BOWEL OBSTRUCTION FINDINGS: Single image of the abdomen was obtained. There is moderate gaseous distention of the colon. Small bowel loops do not appear distended. Findings appear most consistent with ileus. Low colon obstruction could cause this appearance as well. IMPRESSION: 1. Abnormal bowel gas pattern, ileus favored over low colon obstruction.
--- NOTE | 2024-09-01 18:40 | HMCIMG ---
CT ABDOMEN/PELVIS W/O CONTRAST REASON: rule out ileus versus obstruction COMPARISON: 08/25/2024 FINDINGS: There are small bilateral pleural effusions. Lung bases are otherwise clear. Liver, spleen, pancreas and gallbladder appear normal. There is bilateral renal cortical thinning. There is a nonobstructing 7 mm calculus in the right kidney which is unchanged. There is no evidence of mass or hydronephrosis. There are air-filled mildly dilated loops of colon. Small bowel gas pattern appears normal. There is no transition zone to suggest obstruction. Findings appear most consistent with a component of ileus.. The appendix was not separately identified. There is no evidence of free fluid or intraperitoneal air. There are no focal fluid collections. Aorta and retroperitoneum appear normal as do pelvic soft tissue structures. The anterior abdominal wall is intact. Osseous structures appear unremarkable. IMPRESSION: 1. Mildly dilated air-filled loops of colon, no transition zone, findings most consistent with gastroenteritis or ileus. 2. No transition zone to suggest obstruction. 3. Moderate bilateral renal cortical thinning 4. Minimal bilateral pleural effusions. CT was performed with one or more following dose reduction techniques: automated exposure control, adjustment of the mA and kv according to patient's size, or use of a iterative reconstruction technique.
--- NOTE | 2024-09-01 18:41 | NUR ---
NOTE STRAIGHT CATH RRE Addendum: 09/01/24 at 1843 by MARTHA RHODES LVN LVN CONTINUATION OF PREVIOUS NOTE STRAIGHT CATH REMOVED OFF PT. 800 ML OF URINE OUTPUT.
[2024-09-01] MEDS: APIXaban 5 MG TABLET PO SCH (22:38)
[2024-09-01] MEDS: MELATONIN 5 MG TABLET PO PRN (23:13)
--- NOTE | 2024-09-01 23:29 | NUR ---
PT PULLED OUT NGT PT STATED HE COULD NO LONGER STAND THE NG TUBE AND PULLED IT OUT. PT REFUSED TO HAVE IT PUT BACK IN.
[2024-09-02] VITALS (15 sets, daily range): BP systolic 133–167; BP diastolic 56–77; PULSE 67–81; RESP 18–22; TEMP 97.5–98.3; O2SAT 95–99
[2024-09-02] MEDS: MELATONIN 5 MG TABLET PO ONE (00:04)
[2024-09-02 04:04] LABS: MEAN CORPUSCULAR HEMOGLOBIN 30.2 pg (27.0-33.0); MEAN CORPUSCULAR VOLUME 91.5 fL (79-99); NUCLEATED RED BLOOD CELLS 0.2 % (0.0-0.19); RED BLOOD CELL COUNT(AUTO) 2.95 MIL/uL (4.50-6.20); RED CELL DISTRIBUTION WIDTH 14.1 % (11.0-15.5); WHITE BLOOD COUNT (AUTO) 9.1 K/uL (4.8-10.8)
[2024-09-02 04:19] LABS: ALBUMIN 2.5 g/dL (3.5-5.0); BILIRUBIN,TOTAL 0.3 mg/dL (0.2-1.0); CREATININE 3.1 mg/dL (0.5-1.3); MAGNESIUM 2.8 mg/dL (1.80-2.40); POTASSIUM 4.1 mmol/L (3.5-5.1); TOTAL PROTEIN, SERUM 5.7 g/dL (6.0-8.3)
--- NOTE | 2024-09-02 10:23 | PN ---
[facility] PROGRESS NOTE Date of Service: Sep 02, 2024 Time of Service: 10:20 SUBJECTIVE: 08/27 Pt seen at bedside, no acute events overnight. Pt weaned off cardene drip, started on PO medications. Will monitor throughout the day and possibly dc tomorrow if BP remains stable 08/28 Pt seen at bedside, no acute events overnight. Pt blood pressure well controlled however he has significant wheeze, rhoncous breathing and cough. Will continue with nebulizers and systemic steroid treatment. CO2 low, will order ABG and follow up. Pt mildly delirius today but responds appropriately 08/29 patient seen at bedside, no acute events overnight. He is still has prominent wheeze and rhonchus breathing. There was no evidence of pneumonia on initial workup, chest x-ray was clear and procalcitonin was in normal range. We will discontinue antibiotics at this time and continue with nebulizers and systemic steroids. As patient has been somewhat confused holding cefepime may help improve his mental status however he is also on systemic steroids which can also contribute to some delirium. Physical therapy recommending residential for rehab, we will consult case management for placement. Patient blood sugars have been elevated we will start glargine 10 units twice daily. Creatinine increased from 2.3 up to 2.8, patient was started on bicarbonate yesterday, we will continue to monitor his urine output. 08/30 patient seen at bedside, no acute events overnight. His wheeze has improved significantly today, he is sitting at bedside on room air now. We will continue with nebulizers and systemic steroids. He is pending placement to residential. 08/31 patient seen at bedside, no acute events overnight. He has no complaints at bedside, breathing appears to be improved, he continues on room air. Family recommending residential placement. His BUN/creatinine continue to up trend to 91 and 3.4. He has no history of heart failure, we will bolus 1 L and follow up with his renal function tomorrow. Nephrology consulted for further recommendations. 09/01 blood pressure 126/45, afebrile, saturating normal on room air. CBC shows a hemoglobin of 8.6, hematocrit 25.4, WBC of 12.3, platelet count of 252. Sodium 137, potassium 3.2, BUN of 93, creatinine of 3.3, bicarb of 20. ABG with a pH of 7.37, pCO2 24, bicarbonate of 13.8. Currently the patient on sodium bicarbonate 650 mg p.o. t.i.d.. Nephrology consultation requested, continue to follow input and recommendations. Family recommended residential facility, we will discuss with case management. 09/02 patient's blood pressure 162/56, afebrile, saturating normal on room air. Case discussed with the RN, patient has a large bowel movement this morning, he feels hungry. During my visit he is comfortable sitting in the chair, he feels less distended and better today compared to yesterday. Denies nausea, no vomiting, no abdominal pain. BP done yesterday was showing abnormal bowel gas pattern, ileus favored over low colon obstruction. CT of the abdomen showing mildly dilated air-filled loops of colon, no transition some findings most consistent with gastroenteritis or ileus, no transition zone to suggest obs truction, moderate bilateral renal cortical thinning, minimal bilateral pleural effusions. Surgical consultation requested, we will follow input and recommendation, we will repeat KUB, we will possibly start clear liquid diet. Patient is still with urinary retention, we will attempt to insert Griffin catheter today, if unable we will request Urology consult. Patient noted to have mild bilateral lower extremity edema, we will start Lasix 20 mg p.o. b.i.d.. REVIEW OF SYSTEMS 12 point ROS negative unless noted in HPI PHYSICAL EXAM GENERAL APPEARANCE: The patient is awake, alert, and oriented, in no acute cardiopulmonary distress. NEUROLOGICAL: Cranial nerves II-XII grossly intact. Motor is 5/5 in bilateral upper and lower extremities proximal to distal. No sensory deficits. HEENT: Face is symmetric. Pupils are equal and reactive. Extraocular movements are intact. NECK: Supple. No JVD. No thyromegaly. No submental, submandibular, pre- /postauricular, occipital or supraclavicular lymphadenopathy. CHEST: Normal chest expansion. No Telemetry. LUNGS: Scattered expiratory wheezing on bilateral lung [place] per auscultation Absence of any rales and rhonchi CARDIOVASCULAR: Regular. S1 and S2 normal. No appreciable rubs, murmurs or gallops. ABDOMEN: Abdomen is round firm and distended .There is no rebound, voluntary guarding, or rigidity. : Deferred. No Griffin. EXTREMITIES: Traces of edema to bilateral lower extremities. No clubbing. Good capillary refill. SKIN: No skin breakdown. Vital Signs (last 8hr) Date Time Temp Pulse Resp B/P (MAP) Pulse Ox O2 Delivery O2 Flow Rate FiO2 09/02/24 10:03 72 21 09/02/24 08:00 98.2 74 19 162/56 96 Room Air 09/02/24 07:02 76 20 N/A Room Air 21 09/02/24 06:59 76 21 09/02/24 04:40 97.5 71 20 150/77 94 Room Air 09/02/24 03:22 67 22 LABS: Laboratory: Test 09/02/24 06:14 09/02/24 03:48 09/01/24 10:06 09/01/24 05:54 Range/Units Whole Blood Glucose 100 70-110 MG/DL White Blood Count 9.1 # 4.8-10.8 K/uL Red Blood Count 2.95 L 4.50-6.20 MIL/uL Hemoglobin 8.9 L 14.0-18.0 g/dL Hematocrit 27.0 L 42-54 % Mean Corpuscular Volume 91.5 79-99 fL Mean Corpuscular Hemoglobin 30.2 27.0-33.0 pg Mean Corpuscular Hemoglobin Concent 33.0 32.0-36.0 g/dL Red Cell Distribution Width 14.1 11.0-15.5 % Platelet Count 249 130-400 K/uL Mean Platelet Volume 9.5 7.5-10.5 fL Nucleated Red Blood Cells 0.2 H 0.0-0.19 % Sodium Level 137 136-145 mmol/L Potassium Level 4.1 3.5-5.1 mmol/L Chloride Level 107 101-111 mmol/L Carbon Dioxide Level 21 21-32 mmol/L Blood Urea Nitrogen 88 *H 7-18 mg/dL Creatinine 3.1 H 0.5-1.3 mg/dL Glomerular Filtration Rate Calc 20 >90 mL/min Random Glucose 111 #H 70-105 mg/dL Total Calcium 8.0 L 8.5-10.1 mg/dL Magnesium Level 2.80 H 1.80-2.40 mg/dL Total Bilirubin 0.3 0.2-1.0 mg/dL Aspartate Amino Transf (AST/SGOT) 21 10-37 U/L Alanine Aminotransferase (ALT/SGPT) 31 # 12-78 U/L Alkaline Phosphatase 47 L 50-136 U/L Total Protein 5.7 L 6.0-8.3 g/dL Albumin 2.5 L 3.5-5.0 g/dL Blood Gas Specimen Type Arterial Arterial Blood pH 7.388 7.350-7.450 Arterial Blood Partial Pressure CO2 26 L 35-48 mmHg Arterial Blood Partial Pressure O2 77.8 L 83.0-108.0 mmHg Arterial Blood HCO3 15.3 L 21.0-28.0 mmol/L Arterial Blood Oxygen Saturation 95.6 94.0-98.0 % Arterial Blood Base Excess -7.8 L -2.0-3.0 mmol/L Blood Gas Temperature 37.0 35.5-37.0 CELSIUS Blood Gas Vent Mode RA ROOM AIR FiO2 21.0 % Blood Gas Specimen Comment RR MARTHA Uric Acid 13.4 H 2.6-7.2 mg/dL Phosphorus Level 5.7 H 2.5-4.9 mg/dL Iron Level 72 # 65-175 mcg/dL Total Iron Binding Capacity 148 L 250-450 mcg/dL Percent Iron Saturation 48.6 H 30-44 % Ferritin 779 H 30-400 ng/mL Thyroid Stimulating Hormone (TSH) 0.78 # 0.36-3.74 uIU/mL Parathyroid Hormone (Intact) 181.2 15-65 pg/mL Test 09/01/24 05:39 08/31/24 17:57 08/31/24 11:49 Range/Units Bedside Glucose Comment Notified Nurse Urine Color LIGHT-YELLOW YELLOW Urine Appearance CLEAR CLEAR Urine pH 6.0 5.0-8.0 Urine Specific [place] 1.013 1.001-1.031 Urine Protein 200 H NEGATIVE mg/dL Urine Glucose (UA) 50 H NEGATIVE mg/dL Urine Ketones NEGATIVE NEGATIVE mg/dL Urine Occult Blood +- (TRACE) H NEGATIVE Urine Nitrate NEGATIVE NEGATIVE Urine Bilirubin NEGATIVE NEGATIVE mg/dL Urine Urobilinogen 0.2 0.2-1.0 mg/dL Urine Leukocyte Esterase NEGATIVE NEGATIVE [place]/uL Urine RBC 0-1 0-1 /HPF Urine WBC 2-5 H 0-1 /HPF Urine Squamous Epithelial Cells RARE 0-2 /HPF Urine Other Crystals (Auto) 1 None Seen /HPF Urine Bacteria RARE None Seen /HPF Hemoglobin (Blood Gas) 9.4 L 13.5-17.5 g/dL Sodium (Blood Gas) 131 L 136-145 MMOL/L Bedside Potassium (Blood Gas) 3.7 3.4-4.5 MMOL/L Bedside Chloride (Blood Gas) 102 98-107 MMOL/L Bedside Glucose (Blood Gas) 137 H 65-95 MG/DL Bedside Ionized Calcium (Blood Gas) 1.15 1.15-1.33 MMOL/L Bedside Lactic Acid (Blood Gas) 1.22 H 0.36-0.75 MMOL/L Current Medications Medications (Trade) Dose Ordered Sig/Abhijit Route PRN Reason Start Time Stop Time Status Last Admin Dose Admin Acetaminophen (TYLenol 325MG TAB) 650 mg Q4H PRN PO MILD PAIN (1-3) 08/26/24 02:00 09/25/24 01:59 Acetaminophen (TYLenol 325MG TAB) 650 mg Q6H PRN PO TEMPERATURE GREATER THAN 101.5 08/26/24 02:00 09/25/24 01:59 Albuterol (DUOneb) 1 udvial M8ELEPD IH 08/26/24 02:00 09/25/24 01:59 09/02/24 10:02 1 UDVIAL Amlodipine Besylate (NorvASC 5MG TAB) 5 mg DAILY PO 08/27/24 09:00 08/27/24 07:12 DC Apixaban (EliquIS) 5 mg BID PO 09/01/24 21:00 10/01/24 20:59 09/02/24 08:56 5 MG Budesonide (Pulmicort 0.5 Mg/2ml) 0.5 mg BIDRESP IH 08/26/24 18:00 09/25/24 17:59 09/02/24 06:58 0.5 MG Cefepime HCl (MAXipime 2 gm vial) 2 gm Q12H IVPB 08/26/24 10:00 08/29/24 07:19 DC 08/28/24 23:16 2 GM Ceftriaxone Sodium 1 gm/ Sodium Chloride 50 ml @ 100 mls/hr BID IV 08/26/24 09:00 08/26/24 01:51 DC Ceftriaxone Sodium (ROCEphine 1G INJ) 1 gm BID IVPB 08/26/24 09:00 08/26/24 09:43 DC 08/26/24 09:15 1 GM Dextrose (D50w) 50 ml AD PRN IV HYPOGLYCEMIA PROTOCOL 08/26/24 02:00 09/25/24 01:59 Epoetin Eros-epbx (Retacrit) 10,000 unit QTU@1600 SQ 09/02/24 16:00 10/02/24 15:59 Glucagon (Glucagon 1mg Kit) 1 mg AD PRN IM HYPOGLYCEMIA PROTOCOL 08/26/24 02:00 09/25/24 01:59 Guaifenesin/ Dextromethorphan (RobiTUSSin DM 200/20MG 10ML) 10 ml Q6H PRN PO COUGH 08/31/24 10:30 09/30/24 10:29 Heparin Sodium (Porcine) (HEParin 5,000 UNIT VIAL) 5,000 unit Q12H SQ 08/26/24 21:30 09/01/24 09:57 DC 09/01/24 09:03 5,000 UNIT Hydralazine HCl (APRESOLine 20MG INJ) 10 mg Q6H PRN IV For:SBP above 160;DBP above 90 08/26/24 02:00 09/25/24 01:59 08/27/24 04:00 10 MG Hydralazine HCl ([id number] TAB) 25 mg TID PO 08/26/24 09:00 08/27/24 07:12 DC 08/26/24 21:08 25 MG Hydralazine HCl ([id number] TAB) 50 mg TID PO 08/28/24 09:00 08/28/24 11:31 DC Hydralazine HCl ([id number] TAB) 50 mg TID PO 08/28/24 14:00 09/27/24 13:59 09/02/24 08:56 50 MG Hydralazine HCl ([id number] TAB) 100 mg TID PO 08/27/24 09:00 08/28/24 07:38 DC 08/27/24 09:22 100 MG Hydrochlorothiazide (hydroCHLOROthiazide 25MG) 25 mg DAILY PO 08/29/24 09:00 08/28/24 12:07 DC Insulin Glargine (LANtus 100 UNITS/ML 10 ML VIAL) 10 units BID@0730,2100 SQ 08/29/24 07:30 09/28/24 07:29 08/31/24 21:46 10 UNITS Insulin Human Regular (humuLIN R 100 UNIT/ML 3ML) INSULIN SLIDING SCAL... ACHS SQ 08/26/24 07:30 09/25/24 07:29 08/31/24 21:49 3 UNIT Labetalol HCl (TRANdate 20MG SYG) 10 mg Q6H PRN IV IF SBP GREATER THAN 170 08/26/24 02:00 09/25/24 01:59 08/27/24 05:41 10 MG Lactulose (Constulose 20gm/ 30ml Udcup) 20 gm BID PRN PO CONSTIPATION 08/31/24 13:00 09/30/24 12:59 09/01/24 20:04 20 GM Losartan Potassium (CozAAR 50 mg TAB) 50 mg BID PO 08/27/24 09:00 08/31/24 10:00 DC 08/31/24 09:46 50 MG Magnesium Sulfate 50 ml @ 0 mls/hr PROTOCOL PRN IV OTHER [SEE ORDER COMMENTS] 08/26/24 02:00 09/25/24 01:59 08/26/24 17:15 50 MLS/HR Melatonin (Melatonin) 5 mg HSPRN PRN PO INSOMNIA 09/01/24 23:00 10/01/24 22:59 09/01/24 23:13 5 MG Methylprednisolone Sodium Succinate (Solu-medROL 40MG) 20 mg Q8H IVP 08/29/24 06:00 08/31/24 12:05 DC 08/31/24 06:33 20 MG Methylprednisolone Sodium Succinate (Solu-medROL 40MG) 40 mg BID IVP 08/27/24 21:00 08/28/24 20:59 DC 08/28/24 09:24 40 MG Metoprolol Tartrate (loprESSOR) 100 mg BID PO 08/26/24 09:00 09/25/24 08:59 09/02/24 08:56 100 MG Montelukast Sodium (SinguLAIR) 10 mg DAILY PO 08/27/24 09:00 09/26/24 08:59 09/02/24 08:55 10 MG Morphine Sulfate (morPHINE 2MG SYG) 2 mg Q4H PRN IV MODERATE PAIN (4-6) 08/26/24 02:00 08/31/24 04:59 DC 08/26/24 06:37 2 MG Nicardipine HCl 20 mg/Sodium Chloride 200 ml @ 0 mls/hr AD PRN IV TITRATE 08/26/24 03:00 08/26/24 02:45 DC Nicardipine HCl 25 mg/Sodium Chloride 250 ml @ 0 mls/hr AD PRN IV TITRATE 08/26/24 03:00 08/27/24 18:03 DC 08/27/24 06:46 50 MLS/HR Nifedipine (adALAT 30MG) 30 mg BID PO 08/28/24 09:00 09/27/24 08:59 09/02/24 08:56 30 MG Nifedipine (adALAT 30MG) 60 mg BID PO 08/27/24 09:00 08/28/24 07:38 DC 08/27/24 07:42 60 MG Ondansetron HCl (zoFRAN 4MG INJ) 4 mg Q6H PRN IV NAUSEA/VOMITING 08/26/24 02:00 09/25/24 01:59 Pantoprazole Sodium (PROTonix 40MG INJ) 40 mg DAILY IVP 08/27/24 09:00 09/26/24 08:59 09/02/24 08:55 40 MG Potassium Chloride 100 ml @ 100 mls/hr AD PRN IV POTASSIUM PROTOCOL 08/26/24 02:00 09/25/24 01:59 Potassium Chloride (K-Dur 10meq Sr Tab) 10 meq AD PRN PO POTASSIUM PROTOCOL 08/26/24 18:00 09/25/24 01:59 08/31/24 17:18 10 MEQ Potassium Chloride (K-Dur/Klor-Con 20meq) 10 meq AD PRN PO POTASSIUM PROTOCOL 08/26/24 02:00 08/26/24 17:48 DC Potassium Chloride (KCl 10% Elixir 20meq/15ml) 10 meq AD PRN PO POTASSIUM PROTOCOL 08/26/24 02:00 09/25/24 01:59 Sodium Bicarbonate (Sodium Bicarbonate) 650 mg TID PO 08/28/24 14:00 09/27/24 13:59 09/02/24 08:56 650 MG Sodium Chloride 1,000 ml @ 50 mls/hr Q20H IV 08/26/24 21:00 08/27/24 13:59 DC 08/26/24 21:08 50 MLS/HR Tamsulosin HCl (FloMAX) 0.4 mg BID PO 08/26/24 21:00 09/25/24 20:59 09/02/24 08:56 0.4 MG Vancomycin HCl 250 ml @ 125 mls/hr Q24H IV 08/27/24 12:00 08/29/24 07:19 DC 08/28/24 11:27 125 MLS/HR Vancomycin HCl (Vancomycin Protocol) 1 each AD IV 08/26/24 10:00 08/29/24 07:19 DC Vitamin B Complex/ Vit C/Folic Acid (Nephrovite Tablet) 1 cap DAILY PO 08/26/24 09:00 09/25/24 08:59 09/02/24 08:55 1 CAP Wound Care/ Dressing Products (Venelex Ointment) 1 APPL TID TP 08/26/24 21:00 09/25/24 20:59 09/02/24 08:57 1 GM DIAGNOSTICS / RADIOLOGY: [ ] ASSESSMENT: Sepsis POA Possible pyelonephritis POA Acute kidney injury POA Kidney stone POA Hypertensive urgency POA Acute normocytic normochromic anemia POA Acute leukocytosis POA CHF POA Debility POA Diabetes POA Hyponatremia POA Dehydration POA Hyperlipidemia POA 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 Atrial fibrillation on chronic anticoagulation POA Sacral ulcer POA Possible ileus, resolved Urinary retention PLAN: Patient remains admitted to the medical floor Patient was noted to have the abdominal distention yesterday, with KUB and CT abdomen with possible ileus, no transition point to suggest obstruction, possible gastroenteritis as well. Patient had a good bowel movement this morning, we will request repeat KUB, if unremarkable we will start the patient on clear liquid diet and advanced diet as tolerated. Consultation requested, we will start input and recommendation Pending SNF placement Patient retention, we will attempt to insert Griffin catheter, if not successful we will request Urology consult Start Lasix 20 mg p.o. b.i.d. as the patient with mild edema to both lower extremities Continue losartan 50mg BID Continue nifedipine to 30mg BID Continue hydralazine to 50mg TID Continue tamsulosin Discontinued empiric anbiotics, cultures are no growth to date Continue duonebs Continue budesonide Continue systemic steroids Continue sliding scale Continue hypoglycemia protocol Nephrology consulted, appreciate recommendations NEURO: Minimize central acting medications as possible. Fall Precautions. Well lighted room through the day and minimize interruptions through the night to prevent acute delirium. PULMONARY: Supplemental 02 as needed BiPAP as necessary, for respiratory distress Titrate Fio2 to keep Spo2 > or = 90% DuoNebs and CPT as needed IS hourly while awake for pulmonary hygiene prn Out of bed to chair as tolerated Maintain aspiration precautions at all times CARDIOVASCULAR: Follow hemodynamics. Vital signs per facility protocol GI & NUTRITION: Continue nutritional support Aspirations precautions Prokinetic agents and laxatives as needed KIDNEYS & ELECTROLYTES: Strict monitoring of intake and output Daily weights Avoid nephrotoxic agents Monitor electrolytes and replace as needed Goal urine output of 30mL/hr or 0.5mL/kg/hr Medications to be dosed according to renal function. Avoid contrast if possible ENDOCRINE: Maintain blood glucose between 100-180 at all times. Insulin sliding scale for blood glucose management Hypoglycemia and hyperglycemia protocol in place INFECTIOUS DISEASE: Trend temperature, WBC and procalcitonin level Follow cultures, deescalate antibiotics as soon as possible. Panculture if new onset fever HEMATOLOGY & COAGULATION: Monitor H&H. Keep Hgb > 7 Transfuse 1 unit of PRBC for Hgb < 7 Transfuse 1 pack of platelets of platelets < 20, 000 Watch for any signs and symptoms of bleeding SKIN: Pressure ulcer prevention per facility protocol Specialty mattress as needed ORTHO/REHAB Continue PT/OT PRN: MEDICATIONS Tylenol 650 mg po every 4 hrs for fever zofran 4 mg IV every 6 hrs for n/v Hydralazine 5 mg IV every 4 hrs systolic pressure > 160 bowel regiment: lactulose 20 gm PO BID PRN constipation Supportive measures: Continue GI and DVT prophylaxis Disposition: Pending improvement in clinical condition All questions answered time spent: > 35 min BRIANNA MENDEZ MD Sep 02, 2024 10:23
--- NOTE | 2024-09-02 10:32 | NUR ---
NOTE DID ORDERED BLADDER SCAN. URINE OUTPUT SHOWED 521 ML. PAGED FOR RESULTS. PENDING CALL BACK. WILL CONTINUE TO MONITOR.
--- NOTE | 2024-09-02 15:50 | NUR ---
NOTE WOMACK CATHETER INSERTED ON PT USING STERILE TECHNIQUE ORDERED. PT TOLERATED WELL.
[2024-09-02] MEDS: EPOETIN ALFA-EPBX (NON-ESRD) 10,000 UNIT/ML VIAL SQ SCH (16:38)
--- NOTE | 2024-09-02 18:22 | CONS ---
GENERAL SURGERY CONSULTATION NOTE DATE OF CONSULTATION: Sep 02, 2024 TIME OF CONSULTATION: 18:21 CONSULTING SERVICE: Olinda Nathan MD REQUESTING PHYSICAIN: [ ] REASON FOR CONSULTATION: [ ] HISTORY OF PRESENT ILLNESS: [ ] PAST MEDICAL HISTORY: [ ] PAST SURGICAL HISTORY: [ ] FAMILY HISTORY: [ ] SOCIAL HISTORY: [ ] Current Medications Medications (Trade) Dose Ordered Sig/Abhijit Route Start Time Stop Time Status Last Admin Dose Admin Acetylcysteine (MUComyst 10% 4ML) 400mg = 4ml [id number] IH 09/03/24 00:00 10/03/24 00:00 Albuterol (DUOneb) 1 udvial [id number] IH 08/26/24 02:00 09/25/24 01:59 09/02/24 14:59 1 UDVIAL Amlodipine Besylate (NorvASC 5MG TAB) 5 mg DAILY PO 08/27/24 09:00 08/27/24 07:12 DC Apixaban (EliquIS 2.5 mg) 2.5 mg BID PO 09/02/24 21:00 10/02/24 20:59 Apixaban (EliquIS) 5 mg BID PO 09/01/24 21:00 09/02/24 16:46 DC 09/02/24 08:56 5 MG Budesonide (Pulmicort 0.5 Mg/2ml) 0.5 mg BIDRESP 08/26/24 18:00 09/25/24 17:59 09/02/24 06:58 0.5 MG Cefepime HCl (MAXipime 2 gm vial) 2 gm Q12H IVPB 08/26/24 10:00 08/29/24 07:19 DC 08/28/24 23:16 2 GM Ceftriaxone Sodium 1 gm/ Sodium Chloride 50 ml @ 100 mls/hr BID IV 08/26/24 09:00 08/26/24 01:51 DC Ceftriaxone Sodium (ROCEphine 1G INJ) 1 gm BID IVPB 08/26/24 09:00 08/26/24 09:43 DC 08/26/24 09:15 1 GM Epoetin Eros-epbx (Retacrit) 10,000 unit QTU@1600 SQ 09/02/24 16:00 10/02/24 15:59 09/02/24 16:38 10,000 UNIT Furosemide (LASix 20MG TAB) 20 mg BID PO 09/02/24 21:00 09/02/24 17:14 DC Heparin Sodium (Porcine) (HEParin 5,000 UNIT VIAL) 5,000 unit Q12H SQ 08/26/24 21:30 09/01/24 09:57 DC 09/01/24 09:03 5,000 UNIT Hydralazine HCl ([id number] TAB) 25 mg TID PO 08/26/24 09:00 08/27/24 07:12 DC 08/26/24 21:08 25 MG Hydralazine HCl ([id number] TAB) 50 mg TID PO 08/28/24 09:00 08/28/24 11:31 DC Hydralazine HCl ([id number] TAB) 50 mg TID PO 08/28/24 14:00 09/27/24 13:59 09/02/24 15:33 50 MG Hydralazine HCl ([id number] TAB) 100 mg TID PO 08/27/24 09:00 08/28/24 07:38 DC 08/27/24 09:22 100 MG Hydrochlorothiazide (hydroCHLOROthiazide 25MG) 25 mg DAILY PO 08/29/24 09:00 08/28/24 12:07 DC Insulin Glargine (LANtus 100 UNITS/ML 10 ML VIAL) 10 units BID@0730,2100 SQ 08/29/24 07:30 09/28/24 07:29 08/31/24 21:46 10 UNITS Insulin Human Regular (humuLIN R 100 UNIT/ML 3ML) INSULIN SLIDING SCAL... ACHS SQ 08/26/24 07:30 09/25/24 07:29 08/31/24 21:49 3 UNIT Losartan Potassium (CozAAR 50 mg TAB) 50 mg BID PO 08/27/24 09:00 08/31/24 10:00 DC 08/31/24 09:46 50 MG Methylprednisolone Sodium Succinate (Solu-medROL 40MG) 20 mg Q8H IVP 08/29/24 06:00 08/31/24 12:05 DC 08/31/24 06:33 20 MG Methylprednisolone Sodium Succinate (Solu-medROL 40MG) 40 mg BID IVP 08/27/24 21:00 08/28/24 20:59 DC 08/28/24 09:24 40 MG Metoprolol Tartrate (loprESSOR) 100 mg BID PO 08/26/24 09:00 09/25/24 08:59 09/02/24 08:56 100 MG Montelukast Sodium (SinguLAIR) 10 mg DAILY PO 08/27/24 09:00 09/26/24 08:59 09/02/24 08:55 10 MG Nifedipine (adALAT 30MG) 30 mg BID PO 08/28/24 09:00 09/27/24 08:59 09/02/24 08:56 30 MG Nifedipine (adALAT 30MG) 60 mg BID PO 08/27/24 09:00 08/28/24 07:38 DC 08/27/24 07:42 60 MG Pantoprazole Sodium (PROTonix 40MG INJ) 40 mg DAILY IVP 08/27/24 09:00 09/26/24 08:59 09/02/24 08:55 40 MG Sodium Bicarbonate (Sodium Bicarbonate) 650 mg TID PO 08/28/24 14:00 09/27/24 13:59 09/02/24 15:33 650 MG Sodium Chloride 1,000 ml @ 50 mls/hr Q20H IV 08/26/24 21:00 08/27/24 13:59 DC 08/26/24 21:08 50 MLS/HR Tamsulosin HCl (FloMAX) 0.4 mg BID PO 08/26/24 21:00 09/25/24 20:59 09/02/24 08:56 0.4 MG Vancomycin HCl 250 ml @ 125 mls/hr Q24H IV 08/27/24 12:00 08/29/24 07:19 DC 08/28/24 11:27 125 MLS/HR Vancomycin HCl (Vancomycin Protocol) 1 each AD IV 08/26/24 10:00 08/29/24 07:19 DC Vitamin B Complex/ Vit C/Folic Acid (Nephrovite Tablet) 1 cap DAILY PO 08/26/24 09:00 09/25/24 08:59 09/02/24 08:55 1 CAP Wound Care/ Dressing Products (Venelex Ointment) 1 APPL TID TP 08/26/24 21:00 09/25/24 20:59 09/02/24 15:33 1 GM Allergies: Coded Allergies: tramadol (Unverified Allergy, Unknown, 09/28/17) REVIEW OF SYSTEMS: COMPUTER SYSTEMS MANAGER: [Denies headaches or blurring of vision.] RESP: [No cough, chest pain or SOB.] CVS: [No palpitaions.] GI: [abdominal pain with nausea and vomiting, no diarrhea or constipation.] PIYUSH: [No dysuria or hematuria.] Musculoskeletal: [No swelling or joint pain.] BACK: [No pain or swelling.] All other systems are reviewed and essentially negative pertinent positives in HPI. PHYSICAL EXAMINATION: GENERAL: [Patient is lying comfortably in bed, not in any obvious distress.] HEAD: [Normal with no signs of head trauma.] EYES: [Not pale not jaundiced afebrile to touch.] ENT: [ Normal.] NECK: [Supple,no tenderness,no lymphadenopathy,no masses,no thyromegaly ,no bruits, no JVD.] LUNGS: [Clear breath sounds bilaterally. No wheezes, rales, or rhonchi.] HEART: [Regular rate and rhythm. Normal S1 and S2, without murmurs, rub or gallop.] VASC: [No edema. Peripheral pulses normal and equal in all extremities.] ABD: [Bowel sounds present,soft, RUQ tender, no masses, no organomegaly.] : [Normal, no suprapubic tenderness.] LYMPH: [No lymphadenopathy noted.] EXT: [ Warm soft, non tender.] SKIN: [ No rashes or lesions.] NEURO: [ Awake Alert and oriented x3.] Vital Signs (last 8hr) Date Time Temp Pulse Resp B/P (MAP) Pulse Ox O2 Delivery O2 Flow Rate FiO2 09/02/24 14:59 68 20 09/02/24 12:00 97.5 70 18 133/68 94 Room Air LABORATORY: [ ] Hematology Labs: Test 09/02/24 03:48 Range/Units White Blood Count 9.1 # 4.8-10.8 K/uL Red Blood Count 2.95 L 4.50-6.20 MIL/uL Hemoglobin 8.9 L 14.0-18.0 g/dL Hematocrit 27.0 L 42-54 % Mean Corpuscular Volume 91.5 79-99 fL Mean Corpuscular Hemoglobin 30.2 27.0-33.0 pg Mean Corpuscular Hemoglobin Concent 33.0 32.0-36.0 g/dL Red Cell Distribution Width 14.1 11.0-15.5 % Platelet Count 249 130-400 K/uL Mean Platelet Volume 9.5 7.5-10.5 fL Nucleated Red Blood Cells 0.2 H 0.0-0.19 % Chemistry Labs: Test 09/02/24 15:54 09/02/24 03:48 09/01/24 05:54 09/01/24 05:39 Range/Units Whole Blood Glucose 138 H 70-110 MG/DL Sodium Level 137 136-145 mmol/L Potassium Level 4.1 3.5-5.1 mmol/L Chloride Level 107 101-111 mmol/L Carbon Dioxide Level 21 21-32 mmol/L Blood Urea Nitrogen 88 *H 7-18 mg/dL Creatinine 3.1 H 0.5-1.3 mg/dL Glomerular Filtration Rate Calc 20 >90 mL/min Random Glucose 111 #H 70-105 mg/dL Total Calcium 8.0 L 8.5-10.1 mg/dL Magnesium Level 2.80 H 1.80-2.40 mg/dL Total Bilirubin 0.3 0.2-1.0 mg/dL Aspartate Amino Transf (AST/SGOT) 21 10-37 U/L Alanine Aminotransferase (ALT/SGPT) 31 # 12-78 U/L Alkaline Phosphatase 47 L 50-136 U/L Total Protein 5.7 L 6.0-8.3 g/dL Albumin 2.5 L 3.5-5.0 g/dL Uric Acid 13.4 H 2.6-7.2 mg/dL Phosphorus Level 5.7 H 2.5-4.9 mg/dL Iron Level 72 # 65-175 mcg/dL Total Iron Binding Capacity 148 L 250-450 mcg/dL Percent Iron Saturation 48.6 H 30-44 % Ferritin 779 H 30-400 ng/mL Thyroid Stimulating Hormone (TSH) 0.78 # 0.36-3.74 uIU/mL Parathyroid Hormone (Intact) 181.2 15-65 pg/mL Bedside Glucose Comment Notified Nurse DIAGNOSTICS / RADIOLOGY: [Copy/Paste Echos/Imaging Report here] ASSESSMENT: [] Abdominal distension Concerning for sigmoid volvulus PLAN: Modified barium enema OLINDA NATHAN MD Sep 02, 2024 18:22
--- NOTE | 2024-09-02 18:26 | HMCIMG ---
ABD 1VW REASON: COMPARISON FINDINGS: Single image of the abdomen was obtained. 09/01/2024 there are persistent moderately dilated tubular loops, predominantly colon. Overall bowel gas pattern is unchanged. Bones and soft tissues appear unremarkable. Bilateral hip joint prostheses are noted. IMPRESSION: 1. Abnormal but nonspecific bowel gas pattern, unchanged compared to prior study.
--- NOTE | 2024-09-02 18:46 | NUR ---
SPEECH NOTE: Orders for MBSS received; however, entered by error. Patient requiring different exam with use of gastrographing. LINUX SYSTEMS ADMINISTRATOR coordinated with nurse Vanessa. All questions answered. Addendum: 09/02/[address] [place] Amended: Links added.
[2024-09-02] MEDS: acetaMINOPHEN 325 MG TAB PO PRN (18:51)
--- NOTE | 2024-09-02 20:12 | PN ---
FOLLOWUP PROGRESS NOTE SUBJECTIVE: An 78-year-old male, initially presented with acute on chronic renal failure. The patient's creatinine has been elevated. The patient was found to have obstructive uropathy. He did have ____ catheterization yesterday with 800 mL of retained urine. The patient's repeat bladder scan also reveals persistent retained urine in the bladder and he is being seen as a followup visit for all of the above. REVIEW OF SYSTEMS: CONSTITUTIONAL: He is feeling weak and tired. HEENT: No change in vision. No change in hearing. CARDIOVASCULAR: No chest pain or palpitations. PULMONARY: There is no shortness of breath. GASTROINTESTINAL: The patient is tolerating a diet. MUSCULOSKELETAL: Complaints of weakness. PHYSICAL EXAMINATION: VITAL SIGNS: Blood pressure is 133/68, pulse in the 70s, afebrile. GENERAL: Chronically ill male, elderly, lying in bed on the medical floor. HEENT: Head is atraumatic. Pupils are equal, roving to light. Oropharynx is without exudate. Nares clear. NECK: No JVP. There is no thyromegaly. No masses. CARDIOVASCULAR: Regular. There is no S3 or S4 gallop. LUNGS: Coarse with equal thoracic movement. ABDOMEN: Soft, nondistended and nontender. EXTREMITIES: Reveal no clubbing or cyanosis. NEUROLOGICAL: He is awake. He is alert. LABORATORY DATA: Sodium 137, potassium 4, BUN 88, creatinine 3. Hemoglobin 8.9, hematocrit 27. IMPRESSION: * Acute on chronic renal failure. * Obstructive uropathy. * Diabetes mellitus. * Hypertension. PLAN: The patient continues with retained urine in the bladder. The patient with worsening renal dysfunction. We will have Griffin catheter placed for completeness. The patient can be started on Flomax and we will continue to follow the patient closely, eventually will need to be seen by Urology. Creatinine did somewhat stabilize overnight. We will continue to follow closely. The patient with multiple questions, all of which were answered. TID: [id number] RECEIPT: [id number]
[2024-09-02] MEDS ORDERED: furoSEMIDE 20 MG TABLET PO SCH (21:00)
[2024-09-02] MEDS: APIXaban 2.5 MG TABLET PO SCH (21:38)
--- NOTE | 2024-09-02 21:57 | PN ---
[facility] PROGRESS NOTE Date Patient Seen: Sep 02, 2024 Time of Visit: 13:49 Supervising Physician: DR. ALEXANDRA MORGAN Primary Care Physician: [Dr. Freida Izaguirre] Outpatient Specialists: [ ] Inpatient Consults: [ ] PROBLEM LIST: Sepsis secondary to pyelonephritis, improved Acute kidney injury on top of chronic kidney disease, prerenal, decompensated Metabolic acidosis with incomplete respiratory compensation Acute delirium, not POA, mild Hypertensive urgency, resolved Non-obstructive R-renal pelvic calculus, 7mm per CT abdomen, no calculi per renal U/S CAD s/p remote CABG Chronic A-fib on eliquis outpatient PPM/AICD status Sacral ulcer Plan: Griffin cath placed obtain ABG's obtain BMP in am Obtain chest x ray in am Decreased Eliquis Lasix Discontinued Continue oral antihypertensives, monitor BP DC losartan and morphine Continue IV solumedrol Discontinue cefepime and vancomycin Blood and urine culture negative Supplemental oxygen as needed, wean off as tolerated INTERVAL HISTORY: [Patient is evaluated at bedside. He has weaned off Cardene drip since this a.m., has initiated antihypertensive medication by mouth with improvement in blood pressure. He appears edematous to bilateral lower extremities. Admits some nausea but no vomiting, is tolerating clear diet well. He has mild end expiratory wheezing but is saturating well on room air. WBC improved to 11 today, creatinine remains elevated but is improved to 1.9 today. His renal ultrasound is consistent with renal parenchymal disease. FENA labs suggest prerenal KEVIN. His blood and urine cultures remained negative. Patient okay to downgrade to Med/surg.] 08/28 patient is evaluated at bedside. His white count is downtrending, continues on IV antibiotics. No fever noted overnight. Blood and urine cultures are negative. He was given a dose of Lasix yesterday, and initiated on oral antihypertensive with improvement of blood pressure. His blood pressure was soft this morning with some BP meds held for the same. Renal ultrasound shows no calculi. Per nurse, patient appeared somewhat confused and combative this morning but has since improved. Daughter at bedside states patient norm ally at this way whenever he is admitted into the hospital. Ammonia lab drawn was within normal limits. ABG was requested which revealed mild metabolic acidosis with incomplete respiratory compensation. 08/29 Patient is evaluated at bedside. He continues with end-expiratory wheezing bilaterally. He denies a hx of COPD or smoking. Has never seen a vp treasurer outpatient. His antibiotics were discontinued. Blood and urine cultures remain negative. Echocardiogram is within normal limits with EF of 50-55%. 08/30 patient is evaluated at bedside. He continues with shortness of breath, even at rest. His creatinine has significantly evaluated to 3.0 today, he is currently receiving IV fluids. Repeat ABG shows mild metabolic acidosis with incomplete respiratory compensation but is improved from previous. Per nursing staff, patient was unable to tolerate 6 minute walk yesterday due to shortness of breaths, however was saturating well. His antibiotics have been discontinued, CBC is unremarkable. Repeat CXR today is unremarkable. He continues with mild end-expiratory wheezing bilaterally. 08/31 patient is evaluated at bedside. He was weaned off supplemental oxygen now on room air. His wheezing is improved. Blood pressure is within normal limits. He has 350 mL of documented urine output in last 24 hours. His creatinine is worsened to 3.4 today. Blood and urine cultures remained negative. 09/01 patient is evaluated at bedside. He continues on room air. Blood pressure is within normal limits. His respiratory status improved but continues with mild end-expiratory wheezing which seems chronic. Repeat ABG is improved. CBC is grossly unremarkable. Creatinine remains persistently elevated, nephrology is following. Patient is stable for discharge from pulmonary standpoint. His KEVIN is being addressed by primary and nephrology prior to discharge. 09/02 Patient is seen and examined at the bedside, patient with KEVIN he is off lasix, patient with SOB on admission which has improved , plan is to repeat ABG's Eliquis dose has been decreased CBC remains unremarkable plan is to repeat labs in am, continue monitoring kidney function. REVIEW OF SYSTEMS: 12 point ROS reviewed with patient. Pertinent positives mentioned above. Otherwise negative. PHYSICAL EXAM: GENERAL: alert, weak, awake oriented x 3, no acute distress HEENT: EOMI, Sclera non icteric, moist mucosa NECK: Supple, no JVD, trachea midline LUNGS: Clear breath sounds bilaterally. bilateral end-expiratory wheezing, on 3LNC HEART: Regular rate and rhythm. Normal S1 and S2, without murmurs ABD: Abdomen discomfort with palpation. Bowel sounds present, CVA tenderness bilaterally EXT: No clubbing cyanosis or edema NEURO: Alert and oriented to person, follows commands Vital Signs (last 8hr) Date Time Temp Pulse Resp B/P (MAP) Pulse Ox O2 Delivery O2 Flow Rate FiO2 09/02/24 21:02 98.1 81 20 167/61 96 Room Air 09/02/24 19:14 79 20 N/A Room Air 21 09/02/24 19:13 78 20 09/02/24 16:00 97.7 71 20 137/59 96 Room Air 09/02/24 14:59 68 20 LABS: Hematology Labs: Test 09/02/24 03:48 Range/Units White Blood Count 9.1 # 4.8-10.8 K/uL Red Blood Count 2.95 L 4.50-6.20 MIL/uL Hemoglobin 8.9 L 14.0-18.0 g/dL Hematocrit 27.0 L 42-54 % Mean Corpuscular Volume 91.5 79-99 fL Mean Corpuscular Hemoglobin 30.2 27.0-33.0 pg Mean Corpuscular Hemoglobin Concent 33.0 32.0-36.0 g/dL Red Cell Distribution Width 14.1 11.0-15.5 % Platelet Count 249 130-400 K/uL Mean Platelet Volume 9.5 7.5-10.5 fL Nucleated Red Blood Cells 0.2 H 0.0-0.19 % Chemistry Labs: Test 09/02/24 20:05 09/02/24 03:48 09/01/24 05:54 09/01/24 05:39 Range/Units Whole Blood Glucose 134 H 70-110 MG/DL Sodium Level 137 136-145 mmol/L Potassium Level 4.1 3.5-5.1 mmol/L Chloride Level 107 101-111 mmol/L Carbon Dioxide Level 21 21-32 mmol/L Blood Urea Nitrogen 88 *H 7-18 mg/dL Creatinine 3.1 H 0.5-1.3 mg/dL Glomerular Filtration Rate Calc 20 >90 mL/min Random Glucose 111 #H 70-105 mg/dL Total Calcium 8.0 L 8.5-10.1 mg/dL Magnesium Level 2.80 H 1.80-2.40 mg/dL Total Bilirubin 0.3 0.2-1.0 mg/dL Aspartate Amino Transf (AST/SGOT) 21 10-37 U/L Alanine Aminotransferase (ALT/SGPT) 31 # 12-78 U/L Alkaline Phosphatase 47 L 50-136 U/L Total Protein 5.7 L 6.0-8.3 g/dL Albumin 2.5 L 3.5-5.0 g/dL Uric Acid 13.4 H 2.6-7.2 mg/dL Phosphorus Level 5.7 H 2.5-4.9 mg/dL Iron Level 72 # 65-175 mcg/dL Total Iron Binding Capacity 148 L 250-450 mcg/dL Percent Iron Saturation 48.6 H 30-44 % Ferritin 779 H 30-400 ng/mL Thyroid Stimulating Hormone (TSH) 0.78 # 0.36-3.74 uIU/mL Parathyroid Hormone (Intact) 181.2 15-65 pg/mL Bedside Glucose Comment Notified Nurse DIAGNOSTICS / RADIOLOGY RESULTS: [ ] PLAN NEURO: Minimize central acting medications as possible. Maintain fall precautions, adequate lighting during the day PULMONARY: Supplemental 02 as needed. Maintain aspiration precautions at all times CARDIOVASCULAR: Follow hemodynamics. Vital signs per facility protocol GI & NUTRITION: Continue with nutritional support. Continue stool softeners and laxatives as needed. KIDNEYS & ELECTROLYTES: Strict monitoring of intake, output and overall fluid balance. Avoid nephrotoxic medications to the extent possible. Medications to be dosed according to renal function. Monitor electrolytes and replace as needed ENDOCRINE: Maintain blood glucose between 100-180 at all times. Hypoglycemia protocol in place INFECTIOUS DISEASE: Trend temperature, WBC and procalcitonin level Follow cultures, deescalate antibiotics as soon as possible. Panculture if new onset fever ONCOLOGY/HEMATOLOGY/COAGULATION: Monitor for s/s of bleeding Monitor hemoglobin, coagulation studies as needed SKIN: Pressure ulcer prevention per facility protocol Specialty mattress ORTHO/REHAB: Continue PT/OT Prophylaxis: Continue GI and DVT prophylaxis Code Status: Full Resuscitation Disposition: TBD Other: Time spent on patient care exceeds 45 minutes. This does not include any time spent on procedures. ATTESTATION BY PHYSICIAN Documentation assistance provided by a scribe, information recorded by the scribe was done at my direction and has been reviewed and validated by me." ALEXANDRA MORGAN MD I personally scribed for ALEXANDRA MORGAN MD ([email or web address]) on 09/02/24 at 21:57. Electronically submitted by Gema Boone ([id number]). ALEXANDRA MORGAN MD Sep 02, 2024 21:57
[2024-09-02] MEDS: acetylCYSTeine10% 4ML VIAL IH SCH (23:23)
[2024-09-03] VITALS (16 sets, daily range): BP systolic 151–166; BP diastolic 50–67; PULSE 69–89; RESP 16–22; TEMP 96.9–98.6; O2SAT 95–96
[2024-09-03 03:43] LABS: ABG BASE EXCESS -3.2 mmol/L (-2.0-3.0); ABG HCO3 19.5 mmol/L (21.0-28.0); ABG OXYGEN SATURATION 95.8 % (94.0-98.0); ABG PCO2 29 mmHg (35-48); ABG PH 7.446 (7.350-7.450); PO2, ARTERIAL BG 75.3 mmHg (83.0-108.0); VENT MODE, BG RA (ROOM AIR)
[2024-09-03 05:48] LABS: HEMATOCRIT 28.4 % (42-54); MEAN CORPUSCULAR HEMOGLOBIN 30.3 pg (27.0-33.0); MEAN CORPUSCULAR HGB CONC 32.7 g/dL (32.0-36.0); MEAN CORPUSCULAR VOLUME 92.5 fL (79-99); RED BLOOD CELL COUNT(AUTO) 3.07 MIL/uL (4.50-6.20); RED CELL DISTRIBUTION WIDTH 14.2 % (11.0-15.5); WHITE BLOOD COUNT (AUTO) 9.5 K/uL (4.8-10.8)
[2024-09-03 06:12] LABS: INR 1.05 (0.85-1.15); PROTHROMBIN TIME 11.1 SEC (9.6-11.6)
[2024-09-03 06:13] LABS: PARTIAL THROMBOPLASTIN TIME 28.5 SEC (26.3-35.5)
[2024-09-03 06:17] LABS: ALBUMIN 2.5 g/dL (3.5-5.0); BILIRUBIN,TOTAL 0.4 mg/dL (0.2-1.0); CREATININE 2.6 mg/dL (0.5-1.3); MAGNESIUM 2.6 mg/dL (1.80-2.40); THYROID STIMULATING HORMONE 1.12 uIU/mL (0.36-3.74); TOTAL PROTEIN, SERUM 5.7 g/dL (6.0-8.3)
--- NOTE | 2024-09-03 09:32 | PN ---
FOLLOWUP PROGRESS NOTE SUBJECTIVE: An 78-year-old male with a history of known cardiomyopathy. The patient with a history of hypertension, initially presented with increasing shortness of breath, orthopnea. The patient was found to have significant renal dysfunction. The patient with obstructive uropathy and had a Griffin catheter placed. The patient's urine output is greatly improved. The patient's creatinine has improved, and he is being seen as a followup visit for all of the above. REVIEW OF SYSTEMS: CONSTITUTIONAL: He is feeling weak and tired. HEENT: No change in vision. No change in hearing. CARDIOVASCULAR: There is no current chest pain or palpitations. PULMONARY: He has got chronic shortness of breath. GASTROINTESTINAL: He is tolerating a diet. MUSCULOSKELETAL: Complains of weakness. PHYSICAL EXAMINATION: VITAL SIGNS: Blood pressure is 164/65, pulse in the 70s. He is afebrile. GENERAL: He is a chronically old male, elderly, lying in bed on the medical floor. HEENT: Head is atraumatic. Pupils are equal, roving to light. Oropharynx is without exudate. Nares clear. NECK: There is no JVP. There is no thyromegaly, no mass. CARDIOVASCULAR: Regular. There is no S3 or S4 gallop. LUNGS: Coarse with equal thoracic movement. ABDOMEN: Soft, nondistended, and nontender. EXTREMITIES: He does have edema. NEUROLOGICAL: He is awake. He is alert. LABORATORY DATA: Sodium 141, potassium is 4, BUN 68, creatinine is 2.6. Hemoglobin 9.3, hematocrit 28. IMPRESSION: * Acute renal failure. * Obstructive uropathy. * Known cardiomyopathy. * Hypertension. PLAN: The patient's creatinine continues to improve. The patient will continue with Griffin catheter for now. The patient will resume on the Lasix 20 mg p.o. b.i.d. and we will continue to follow closely. Sodium bicarb ____. The patient is encouraged with his therapy. We will continue to follow the patient closely. TID: [id number] RECEIPT: [id number]
[2024-09-03] MEDS: furoSEMIDE 20 MG TABLET PO ONE (09:39)
--- NOTE | 2024-09-03 10:32 | PN ---
[facility] PROGRESS NOTE Date of Service: Sep 03, 2024 Time of Service: 10:26 SUBJECTIVE: 08/27 Pt seen at bedside, no acute events overnight. Pt weaned off cardene drip, started on PO medications. Will monitor throughout the day and possibly dc tomorrow if BP remains stable 08/28 Pt seen at bedside, no acute events overnight. Pt blood pressure well controlled however he has significant wheeze, rhoncous breathing and cough. Will continue with nebulizers and systemic steroid treatment. CO2 low, will order ABG and follow up. Pt mildly delirius today but responds appropriately 08/29 patient seen at bedside, no acute events overnight. He is still has prominent wheeze and rhonchus breathing. There was no evidence of pneumonia on initial workup, chest x-ray was clear and procalcitonin was in normal range. We will discontinue antibiotics at this time and continue with nebulizers and systemic steroids. As patient has been somewhat confused holding cefepime may help improve his mental status however he is also on systemic steroids which can also contribute to some delirium. Physical therapy recommending retirement for rehab, we will consult case management for placement. Patient blood sugars have been elevated we will start glargine 10 units twice daily. Creatinine increased from 2.3 up to 2.8, patient was started on bicarbonate yesterday, we will continue to monitor his urine output. 08/30 patient seen at bedside, no acute events overnight. His wheeze has improved significantly today, he is sitting at bedside on room air now. We will continue with nebulizers and systemic steroids. He is pending placement to retirement. 08/31 patient seen at bedside, no acute events overnight. He has no complaints at bedside, breathing appears to be improved, he continues on room air. Family recommending retirement placement. His BUN/creatinine continue to up trend to 91 and 3.4. He has no history of heart failure, we will bolus 1 L and follow up with his renal function tomorrow. Nephrology consulted for further recommendations. 09/01 blood pressure 126/45, afebrile, saturating normal on room air. CBC shows a hemoglobin of 8.6, hematocrit 25.4, WBC of 12.3, platelet count of 252. Sodium 137, potassium 3.2, BUN of 93, creatinine of 3.3, bicarb of 20. ABG with a pH of 7.37, pCO2 24, bicarbonate of 13.8. Currently the patient on sodium bicarbonate 650 mg p.o. t.i.d.. Nephrology consultation requested, continue to follow input and recommendations. Family recommended retirement facility, we will discuss with case management. 09/02 patient's blood pressure 162/56, afebrile, saturating normal on room air. Case discussed with the RN, patient has a large bowel movement this morning, he feels hungry. During my visit he is comfortable sitting in the chair, he feels less distended and better today compared to yesterday. Denies nausea, no vomiting, no abdominal pain. BP done yesterday was showing abnormal bowel gas pattern, ileus favored over low colon obstruction. CT of the abdomen showing mildly dilated air-filled loops of colon, no transition some findings most consistent with gastroenteritis or ileus, no transition zone to suggest obs truction, moderate bilateral renal cortical thinning, minimal bilateral pleural effusions. Surgical consultation requested, we will follow input and recommendation, we will repeat KUB, we will possibly start clear liquid diet. Patient is still with urinary retention, we will attempt to insert Griffin catheter today, if unable we will request Urology consult. Patient noted to have mild bilateral lower extremity edema, we will start Lasix 20 mg p.o. b.i.d.. 09/03 the patient remains admitted to the medical floor, case discussed with the RN, the patient back in the room, unable to lie flat for the Gastrografin enema per surgery recommendation. During my visit patient awake, following commands, not in distress. He remains hemodynamically stable. Hemoglobin 9.3, currently tolerating diet, passing gas. Patient evaluated by General surgery, abdominal distention concerning for sigmoid volvulus. Case discussed with the surgery, GI consulted for decompressive sigmoidoscopy, case discussed, plan to do tomorrow. REVIEW OF SYSTEMS 12 point ROS negative unless noted in HPI PHYSICAL EXAM GENERAL APPEARANCE: The patient is awake, alert, and oriented, in no acute cardiopulmonary distress. NEUROLOGICAL: Cranial nerves II-XII grossly intact. Motor is 5/5 in bilateral upper and lower extremities proximal to distal. No sensory deficits. HEENT: Face is symmetric. Pupils are equal and reactive. Extraocular movements are intact. NECK: Supple. No JVD. No thyromegaly. No submental, submandibular, pre- /postauricular, occipital or supraclavicular lymphadenopathy. CHEST: Normal chest expansion. No Telemetry. LUNGS: no wheezing, no rhonchi, no rales CARDIOVASCULAR: Regular. S1 and S2 normal. No appreciable rubs, murmurs or gallops. ABDOMEN: Still mildly distended, bowel sounds present, mildly tympanic. : Deferred. No Griffin. EXTREMITIES: No clubbing. Good capillary refill. SKIN: No skin breakdown. Vital Signs (last 8hr) Date Time Temp Pulse Resp B/P (MAP) Pulse Ox O2 Delivery O2 Flow Rate FiO2 09/03/24 08:00 98.4 78 18 164/65 95 Room Air 09/03/24 06:15 75 22 09/03/24 06:14 75 20 N/A Room Air 21 09/03/24 04:21 97.9 77 20 164/65 94 Room Air 09/03/24 03:04 72 20 LABS: Laboratory: Test 09/03/24 06:02 09/03/24 05:35 09/03/24 03:42 Range/Units Whole Blood Glucose 73 70-110 MG/DL White Blood Count 9.5 4.8-10.8 K/uL Red Blood Count 3.07 L 4.50-6.20 MIL/uL Hemoglobin 9.3 L 14.0-18.0 g/dL Hematocrit 28.4 L 42-54 % Mean Corpuscular Volume 92.5 79-99 fL Mean Corpuscular Hemoglobin 30.3 27.0-33.0 pg Mean Corpuscular Hemoglobin Concent 32.7 32.0-36.0 g/dL Red Cell Distribution Width 14.2 11.0-15.5 % Platelet Count 248 130-400 K/uL Mean Platelet Volume 9.4 7.5-10.5 fL Nucleated Red Blood Cells 0.0 0.0-0.19 % Prothrombin Time 11.1 9.6-11.6 SEC Prothromb Time International Ratio 1.05 0.85-1.15 Activated Partial Thromboplast Time 28.5 26.3-35.5 SEC Sodium Level 141 136-145 mmol/L Potassium Level 4.0 3.5-5.1 mmol/L Chloride Level 108 101-111 mmol/L Carbon Dioxide Level 21 21-32 mmol/L Blood Urea Nitrogen 68 H 7-18 mg/dL Creatinine 2.6 H 0.5-1.3 mg/dL Glomerular Filtration Rate Calc 24 >90 mL/min Random Glucose 82 70-105 mg/dL Lactic Acid Level 1.3 0.8-2.5 mmol/L Total Calcium 8.3 L 8.5-10.1 mg/dL Phosphorus Level 4.0 2.5-4.9 mg/dL Magnesium Level 2.60 H 1.80-2.40 mg/dL Total Bilirubin 0.4 0.2-1.0 mg/dL Aspartate Amino Transf (AST/SGOT) 18 10-37 U/L Alanine Aminotransferase (ALT/SGPT) 28 12-78 U/L Alkaline Phosphatase 46 L 50-136 U/L Total Protein 5.7 L 6.0-8.3 g/dL Albumin 2.5 L 3.5-5.0 g/dL Thyroid Stimulating Hormone (TSH) 1.12 # 0.36-3.74 uIU/mL Blood Gas Specimen Type Arterial Arterial Blood pH 7.446 7.350-7.450 Arterial Blood Partial Pressure CO2 29 L 35-48 mmHg Arterial Blood Partial Pressure O2 75.3 L 83.0-108.0 mmHg Arterial Blood HCO3 19.5 L 21.0-28.0 mmol/L Arterial Blood Oxygen Saturation 95.8 94.0-98.0 % Arterial Blood Base Excess -3.2 L -2.0-3.0 mmol/L Blood Gas Temperature 37.0 35.5-37.0 CELSIUS Blood Gas Vent Mode RA ROOM AIR FiO2 21.0 % Blood Gas Specimen Comment RR RN YOLANDA Current Medications Medications (Trade) Dose Ordered Sig/Abhijit Route PRN Reason Start Time Stop Time Status Last Admin Dose Admin Acetaminophen (TYLenol 325MG TAB) 650 mg Q4H PRN PO MILD PAIN (1-3) 08/26/24 02:00 09/25/24 01:59 09/02/24 18:51 650 MG Acetaminophen (TYLenol 325MG TAB) 650 mg Q6H PRN PO TEMPERATURE GREATER THAN 101.5 08/26/24 02:00 09/25/24 01:59 Acetylcysteine (MUComyst 10% 4ML) 400mg = 4ml [id number] IH 09/03/24 00:00 10/03/24 00:00 09/03/24 06:14 400 MG Albuterol (DUOneb) 1 udvial [id number] 08/26/24 02:00 09/25/24 01:59 09/03/24 06:13 1 UDVIAL Amlodipine Besylate (NorvASC 5MG TAB) 5 mg DAILY PO 08/27/24 09:00 08/27/24 07:12 DC Apixaban (EliquIS 2.5 mg) 2.5 mg BID PO 09/02/24 21:00 10/02/24 20:59 09/02/24 21:38 2.5 MG Apixaban (EliquIS) 5 mg BID PO 09/01/24 21:00 09/02/24 16:46 DC 09/02/24 08:56 5 MG Budesonide (Pulmicort 0.5 Mg/2ml) 0.5 mg BIDRESP 08/26/24 18:00 09/25/24 17:59 09/03/24 06:14 0.5 MG Cefepime HCl (MAXipime 2 gm vial) 2 gm Q12H IVPB 08/26/24 10:00 08/29/24 07:19 DC 08/28/24 23:16 2 GM Ceftriaxone Sodium 1 gm/ Sodium Chloride 50 ml @ 100 mls/hr BID IV 08/26/24 09:00 08/26/24 01:51 DC Ceftriaxone Sodium (ROCEphine 1G INJ) 1 gm BID IVPB 08/26/24 09:00 08/26/24 09:43 DC 08/26/24 09:15 1 GM Dextrose (D50w) 50 ml AD PRN IV HYPOGLYCEMIA PROTOCOL 08/26/24 02:00 09/25/24 01:59 Epoetin Eros-epbx (Retacrit) 10,000 unit QTU@1600 SQ 09/02/24 16:00 10/02/24 15:59 09/02/24 16:38 10,000 UNIT Furosemide (LASix 20MG TAB) 20 mg BID PO 09/02/24 21:00 09/02/24 17:14 DC Furosemide (LASix 20MG TAB) 20 mg BID@09,17 PO 09/03/24 17:00 10/03/24 16:59 Glucagon (Glucagon 1mg Kit) 1 mg AD PRN IM HYPOGLYCEMIA PROTOCOL 08/26/24 02:00 09/25/24 01:59 Guaifenesin/ Dextromethorphan (RobiTUSSin DM 200/20MG 10ML) 10 ml Q6H PRN PO COUGH 08/31/24 10:30 09/30/24 10:29 Heparin Sodium (Porcine) (HEParin 5,000 UNIT VIAL) 5,000 unit Q12H SQ 08/26/24 21:30 09/01/24 09:57 DC 09/01/24 09:03 5,000 UNIT Hydralazine HCl (APRESOLine 20MG INJ) 10 mg Q6H PRN IV For:SBP above 160;DBP above 90 08/26/24 02:00 09/25/24 01:59 08/27/24 04:00 10 MG Hydralazine HCl ([id number] TAB) 25 mg TID PO 08/26/24 09:00 08/27/24 07:12 DC 08/26/24 21:08 25 MG Hydralazine HCl ([id number] TAB) 50 mg TID PO 08/28/24 09:00 08/28/24 11:31 DC Hydralazine HCl ([id number] TAB) 50 mg TID PO 08/28/24 14:00 09/27/24 13:59 09/02/24 21:37 50 MG Hydralazine HCl ([id number] TAB) 100 mg TID PO 08/27/24 09:00 08/28/24 07:38 DC 08/27/24 09:22 100 MG Hydrochlorothiazide (hydroCHLOROthiazide 25MG) 25 mg DAILY PO 08/29/24 09:00 08/28/24 12:07 DC Insulin Glargine (LANtus 100 UNITS/ML 10 ML VIAL) 10 units BID@0730,2100 SQ 08/29/24 07:30 09/28/24 07:29 09/02/24 21:39 10 UNITS Insulin Human Regular (humuLIN R 100 UNIT/ML 3ML) INSULIN SLIDING SCAL... ACHS SQ 08/26/24 07:30 09/25/24 07:29 08/31/24 21:49 3 UNIT Labetalol HCl (TRANdate 20MG SYG) 10 mg Q6H PRN IV IF SBP GREATER THAN 170 08/26/24 02:00 09/25/24 01:59 08/27/24 05:41 10 MG Lactulose (Constulose 20gm/ 30ml Udcup) 20 gm BID PRN PO CONSTIPATION 08/31/24 13:00 09/30/24 12:59 09/01/24 20:04 20 GM Losartan Potassium (CozAAR 50 mg TAB) 50 mg BID PO 08/27/24 09:00 08/31/24 10:00 DC 08/31/24 09:46 50 MG Magnesium Sulfate 50 ml @ 0 mls/hr PROTOCOL PRN IV OTHER [SEE ORDER COMMENTS] 08/26/24 02:00 09/25/24 01:59 08/26/24 17:15 50 MLS/HR Melatonin (Melatonin) 5 mg HSPRN PRN PO INSOMNIA 09/01/24 23:00 10/01/24 22:59 09/02/24 21:37 5 MG Methylprednisolone Sodium Succinate (Solu-medROL 40MG) 20 mg Q8H IVP 08/29/24 06:00 08/31/24 12:05 DC 08/31/24 06:33 20 MG Methylprednisolone Sodium Succinate (Solu-medROL 40MG) 40 mg BID IVP 08/27/24 21:00 08/28/24 20:59 DC 08/28/24 09:24 40 MG Metoprolol Tartrate (loprESSOR) 100 mg BID PO 08/26/24 09:00 09/25/24 08:59 09/02/24 21:37 100 MG Montelukast Sodium (SinguLAIR) 10 mg DAILY PO 08/27/24 09:00 09/26/24 08:59 09/02/24 08:55 10 MG Morphine Sulfate (morPHINE 2MG SYG) 2 mg Q4H PRN IV MODERATE PAIN (4-6) 08/26/24 02:00 08/31/24 04:59 DC 08/26/24 06:37 2 MG Nicardipine HCl 20 mg/Sodium Chloride 200 ml @ 0 mls/hr AD PRN IV TITRATE 08/26/24 03:00 08/26/24 02:45 DC Nicardipine HCl 25 mg/Sodium Chloride 250 ml @ 0 mls/hr AD PRN IV TITRATE 08/26/24 03:00 08/27/24 18:03 DC 08/27/24 06:46 50 MLS/HR Nifedipine (adALAT 30MG) 30 mg BID PO 08/28/24 09:00 09/27/24 08:59 09/02/24 21:38 30 MG Nifedipine (adALAT 30MG) 60 mg BID PO 08/27/24 09:00 08/28/24 07:38 DC 08/27/24 07:42 60 MG Ondansetron HCl (zoFRAN 4MG INJ) 4 mg Q6H PRN IV NAUSEA/VOMITING 08/26/24 02:00 09/25/24 01:59 Pantoprazole Sodium (PROTonix 40MG INJ) 40 mg DAILY IVP 08/27/24 09:00 09/26/24 08:59 09/03/24 09:07 40 MG Potassium Chloride 100 ml @ 100 mls/hr AD PRN IV POTASSIUM PROTOCOL 08/26/24 02:00 09/25/24 01:59 Potassium Chloride (K-Dur 10meq Sr Tab) 10 meq AD PRN PO POTASSIUM PROTOCOL 08/26/24 18:00 09/25/24 01:59 08/31/24 17:18 10 MEQ Potassium Chloride (K-Dur/Klor-Con 20meq) 10 meq AD PRN PO POTASSIUM PROTOCOL 08/26/24 02:00 08/26/24 17:48 DC Potassium Chloride (KCl 10% Elixir 20meq/15ml) 10 meq AD PRN PO POTASSIUM PROTOCOL 08/26/24 02:00 09/25/24 01:59 Sodium Bicarbonate (Sodium Bicarbonate) 650 mg TID PO 08/28/24 14:00 09/03/24 09:15 DC 09/02/24 21:37 650 MG Sodium Chloride 1,000 ml @ 50 mls/hr Q20H IV 08/26/24 21:00 08/27/24 13:59 DC 08/26/24 21:08 50 MLS/HR Tamsulosin HCl (FloMAX) 0.4 mg BID PO 08/26/24 21:00 09/25/24 20:59 09/02/24 21:37 0.4 MG Vancomycin HCl 250 ml @ 125 mls/hr Q24H IV 08/27/24 12:00 08/29/24 07:19 DC 08/28/24 11:27 125 MLS/HR Vancomycin HCl (Vancomycin Protocol) 1 each AD IV 08/26/24 10:00 08/29/24 07:19 DC Vitamin B Complex/ Vit C/Folic Acid (Nephrovite Tablet) 1 cap DAILY PO 08/26/24 09:00 09/25/24 08:59 09/02/24 08:55 1 CAP Wound Care/ Dressing Products (Venelex Ointment) 1 APPL TID TP 08/26/24 21:00 09/25/24 20:59 09/03/24 09:09 1 GM DIAGNOSTICS / RADIOLOGY: [ ] ASSESSMENT: Sepsis POA Possible pyelonephritis POA Acute kidney injury POA Kidney stone POA Hypertensive urgency POA Acute normocytic normochromic anemia POA Acute leukocytosis POA CHF POA Debility POA Diabetes POA Hyponatremia POA Dehydration POA Hyperlipidemia POA 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 Atrial fibrillation on chronic anticoagulation POA Sacral ulcer POA Abdominal distention, possible ileus versus concern for sigmoid volvulus Urinary retention with indwelling Griffin catheter in place PLAN: Patient remains admitted to the medical floor Patient was noted to have the abdominal distention yesterday, with KUB and CT abdomen with possible ileus, no transition point to suggest obstruction, possible gastroenteritis as well. Patient had a good bowel movement yesterday, repeat KUB showing abnormal but nonspecific bowel gas pattern unchanged compared to prior study. Patient evaluated by General surgery, concern for sigmoid volvulus, modified barium enema recommended, patient unable to lie flat, case discussed, GI consulted, plan for sigmoidoscopy tomorrow. Pulmonary input noted and appreciated, follow chest x-ray Nephrology input noted and appreciated, the patient's creatinine continues to improve, we will continue with Griffin catheter for now, continue furosemide 20 mg p.o. b.i.d.. Pending SNF placement NEURO: Minimize central acting medications as possible. Fall Precautions. Well lighted room through the day and minimize interruptions through the night to prevent acute delirium. PULMONARY: Supplemental 02 as needed BiPAP as necessary, for respiratory distress Titrate Fio2 to keep Spo2 > or = 90% DuoNebs and CPT as needed IS hourly while awake for pulmonary hygiene prn Out of bed to chair as tolerated Maintain aspiration precautions at all times CARDIOVASCULAR: Follow hemodynamics. Vital signs per facility protocol GI & NUTRITION: Continue nutritional support Aspirations precautions Prokinetic agents and laxatives as needed KIDNEYS & ELECTROLYTES: Strict monitoring of intake and output Daily weights Avoid nephrotoxic agents Monitor electrolytes and replace as needed Goal urine output of 30mL/hr or 0.5mL/kg/hr Medications to be dosed according to renal function. Avoid contrast if possible ENDOCRINE: Maintain blood glucose between 100-180 at all times. Insulin sliding scale for blood glucose management Hypoglycemia and hyperglycemia protocol in place INFECTIOUS DISEASE: Trend temperature, WBC and procalcitonin level Follow cultures, deescalate antibiotics as soon as possible. Panculture if new onset fever HEMATOLOGY & COAGULATION: Monitor H&H. Keep Hgb > 7 Transfuse 1 unit of PRBC for Hgb < 7 Transfuse 1 pack of platelets of platelets < 20, 000 Watch for any signs and symptoms of bleeding SKIN: Pressure ulcer prevention per facility protocol Specialty mattress as needed ORTHO/REHAB Continue PT/OT PRN: MEDICATIONS Tylenol 650 mg po every 4 hrs for fever zofran 4 mg IV every 6 hrs for n/v Hydralazine 5 mg IV every 4 hrs systolic pressure > 160 bowel regiment: lactulose 20 gm PO BID PRN constipation Supportive measures: Continue GI and DVT prophylaxis Disposition: Pending improvement in clinical condition All questions answered time spent: > 35 min BRIANNA MENDEZ MD Sep 03, 2024 10:32
--- NOTE | 2024-09-03 12:00 | NUR ---
EXAM PATIENT WAS NOT ABLE TO TOLERATE THE GASTROGRAFFIN ENEMA AND WAS BROUGHT BACK TO FLOOR. PRIMARY WAS NOTIFIED ABOUT PATIENT NOT BEING ABLE TO DO EXAM.
--- NOTE | 2024-09-03 12:48 | HMCIMG ---
CHEST 1VW REASON: chf COMPARISON: 08/30/2020 FINDINGS: Lungs are clear. The atelectasis medial left lung base seen on previous exam has resolved. Heart size is normal. There is no vascular congestion. A bipolar pacemaker in place. Median sternotomy is noted. IMPRESSION: 1. Interval resolution of left lower lobe infiltrate. 2. No acute finding.
--- NOTE | 2024-09-03 13:41 | NUR ---
[facility] Follow-up: Patient re-assessed by wound healing team. See wound assessment. Assessment and recommendations provided to primary nurse. Education provided. Addendum: 09/05/24 at 0959 by PAUL WINCHESTER RN RN/ Amended: Links added.
--- NOTE | 2024-09-03 14:28 | CONS ---
GASTROENTEROLOGY CONSULTATION NOTE Date of Consultation: Sep 03, 2024 Time of Consultation: 14:27 History of Present Illness: This is an 78-year-old male with past medical history of CHF, type 2 diabetes, hypertension, hyperlipidemia, CKD stage 3, atrial fibrillation on chronic anticoagulation with Eliquis, anemia, morbid obesity, BPH and coronary artery disease with CABG x3,PPM/AICD was brought by EMS to the ED for complaints of fever, diarrhea and abdominal pain which started day prior to admission. Patient states he has a non bloody diarrhea x 3 episodes to day. Patient also reports he has involuntary tremors to right hand and states he has a Parkinsons disease. Upon ER arrival patient's vital signs temperature a 100, heart rate 80, blood pressure 180/85 saturation 96% on 1 L. He has been having abdominal distention for which he is being followed by surgery. Gastrograffin enema attempted today but unsuccessful. Review of Systems: CONSTITUTIONAL: No malaise or change in sensation of wellbeing. ENMT: No rhinorrhea, otorrhea, sinus pain, ear ache. CARDIOVASCULAR: No angina, palpitations, orthopnea or paroxysmal dyspnea. RESPIRATORY: No SOB. GASTROINTESTINAL: No abdominal pain, nausea, vomiting, diarrhea, hematemesis, melena or change in the patient's habitual bowel movements consistency/number. GENITOURINARY: No dysuria, hematuria or change in bladder continence. MUSCULOSKELETAL: No new muscle pain or decrease in muscular strength. No new joint swelling, redness or tenderness. SKIN: No new rash. Past Medical History: [ ] Past Surgical History: [ ] Past Social History: [ ] Family History: [ ] Coded Allergies: tramadol (Unverified Allergy, Unknown, 09/28/17) Physical Exam: GEN: Awake, alert, oriented in person, time and place, and in no acute distress. HEENT: No sinus tenderness. Tympanic membranes were not examined. No rhinorrhea. Oral pharyngeal mucosa is pink, moist and within normal limits. Neck is supple with no cervical lymphadenopathy, thyromegaly or JVD. CHEST: Inspection, palpation and percussion of the chest were unremarkable. Lung auscultation revealed normal breath sounds bilaterally. CARDIAC: PMI is within normal limits. Heart sounds are regular. Normal S1, S2. No gallop or murmur. ABD: Soft, non-tender and not distended. No peritoneal signs on palpation. No organomegaly. Normal bowel sounds. EXT: No cyanosis or clubbing. No edema. SKIN: Intact. No rashes. JOINTS: No evidence of synovitis or acute arthritis. NEURO: Alert and oriented to name, place and person. Cranial nerve examination is unremarkable. No focal motor deficits. Normal speech. Gait is normal. Strength is normal. Vital Sign (Last 24 Hours) 09/03/24 09/03/24 09/03/24 08:00 10:50 12:00 Temp 98.1 Pulse 81 Resp 17 B/P (MAP) 151/50 Pulse Ox 95 O2 Delivery Room Air O2 Flow Rate 0 FiO2 21 Intake & Output (last 24hrs) 09/02/24 09/02/24 09/03/24 15:00 23:00 07:00 Intake Total 325 ml 200 ml Output Total 800 ml Balance 325 ml -600 ml Laboratory: [ ] Laboratory: Test 09/03/24 11:46 09/03/24 05:35 09/03/24 03:42 Range/Units Whole Blood Glucose 106 70-110 MG/DL White Blood Count 9.5 4.8-10.8 K/uL Red Blood Count 3.07 L 4.50-6.20 MIL/uL Hemoglobin 9.3 L 14.0-18.0 g/dL Hematocrit 28.4 L 42-54 % Mean Corpuscular Volume 92.5 79-99 fL Mean Corpuscular Hemoglobin 30.3 27.0-33.0 pg Mean Corpuscular Hemoglobin Concent 32.7 32.0-36.0 g/dL Red Cell Distribution Width 14.2 11.0-15.5 % Platelet Count 248 130-400 K/uL Mean Platelet Volume 9.4 7.5-10.5 fL Nucleated Red Blood Cells 0.0 0.0-0.19 % Prothrombin Time 11.1 9.6-11.6 SEC Prothromb Time International Ratio 1.05 0.85-1.15 Activated Partial Thromboplast Time 28.5 26.3-35.5 SEC Sodium Level 141 136-145 mmol/L Potassium Level 4.0 3.5-5.1 mmol/L Chloride Level 108 101-111 mmol/L Carbon Dioxide Level 21 21-32 mmol/L Blood Urea Nitrogen 68 H 7-18 mg/dL Creatinine 2.6 H 0.5-1.3 mg/dL Glomerular Filtration Rate Calc 24 >90 mL/min Random Glucose 82 70-105 mg/dL Lactic Acid Level 1.3 0.8-2.5 mmol/L Total Calcium 8.3 L 8.5-10.1 mg/dL Phosphorus Level 4.0 2.5-4.9 mg/dL Magnesium Level 2.60 H 1.80-2.40 mg/dL Total Bilirubin 0.4 0.2-1.0 mg/dL Aspartate Amino Transf (AST/SGOT) 18 10-37 U/L Alanine Aminotransferase (ALT/SGPT) 28 12-78 U/L Alkaline Phosphatase 46 L 50-136 U/L Total Protein 5.7 L 6.0-8.3 g/dL Albumin 2.5 L 3.5-5.0 g/dL Thyroid Stimulating Hormone (TSH) 1.12 # 0.36-3.74 uIU/mL Blood Gas Specimen Type Arterial Arterial Blood pH 7.446 7.350-7.450 Arterial Blood Partial Pressure CO2 29 L 35-48 mmHg Arterial Blood Partial Pressure O2 75.3 L 83.0-108.0 mmHg Arterial Blood HCO3 19.5 L 21.0-28.0 mmol/L Arterial Blood Oxygen Saturation 95.8 94.0-98.0 % Arterial Blood Base Excess -3.2 L -2.0-3.0 mmol/L Blood Gas Temperature 37.0 35.5-37.0 CELSIUS Blood Gas Vent Mode RA ROOM AIR FiO2 21.0 % Blood Gas Specimen Comment RR RN YOLANDA Current Medications Medications (Trade) Dose Ordered Sig/Abhijit Route PRN Reason Start Time Stop Time Status Last Admin Dose Admin Acetaminophen (TYLenol 325MG TAB) 650 mg Q4H PRN PO MILD PAIN (1-3) 08/26/24 02:00 09/25/24 01:59 09/02/24 18:51 650 MG Acetaminophen (TYLenol 325MG TAB) 650 mg Q6H PRN PO TEMPERATURE GREATER THAN 101.5 08/26/24 02:00 09/25/24 01:59 Acetylcysteine (MUComyst 10% 4ML) 400mg = 4ml [id number] 09/03/24 00:00 10/03/24 00:00 09/03/24 10:49 400 MG Albuterol (DUOneb) 1 udvial [id number] 08/26/24 02:00 09/25/24 01:59 09/03/24 14:25 1 UDVIAL Amlodipine Besylate (NorvASC 5MG TAB) 5 mg DAILY PO 08/27/24 09:00 08/27/24 07:12 DC Apixaban (EliquIS 2.5 mg) 2.5 mg BID PO 09/02/24 21:00 09/03/24 14:24 DC 09/02/24 21:38 2.5 MG Apixaban (EliquIS) 5 mg BID PO 09/01/24 21:00 09/02/24 16:46 DC 09/02/24 08:56 5 MG Apixaban (EliquIS) 5 mg BID PO 09/03/24 21:00 09/03/24 14:19 DC Budesonide (Pulmicort 0.5 Mg/2ml) 0.5 mg BIDRESP 08/26/24 18:00 09/25/24 17:59 09/03/24 06:14 0.5 MG Cefepime HCl (MAXipime 2 gm vial) 2 gm Q12H IVPB 08/26/24 10:00 08/29/24 07:19 DC 08/28/24 23:16 2 GM Ceftriaxone Sodium 1 gm/ Sodium Chloride 50 ml @ 100 mls/hr BID IV 08/26/24 09:00 08/26/24 01:51 DC Ceftriaxone Sodium (ROCEphine 1G INJ) 1 gm BID IVPB 08/26/24 09:00 08/26/24 09:43 DC 08/26/24 09:15 1 GM Dextrose (D50w) 50 ml AD PRN IV HYPOGLYCEMIA PROTOCOL 08/26/24 02:00 09/25/24 01:59 Epoetin Eros-epbx (Retacrit) 10,000 unit QTU@1600 SQ 09/02/24 16:00 10/02/24 15:59 09/02/24 16:38 10,000 UNIT Furosemide (LASix 20MG TAB) 20 mg BID PO 09/02/24 21:00 09/02/24 17:14 DC Furosemide (LASix 20MG TAB) 20 mg BID@09,17 PO 09/03/24 17:00 10/03/24 16:59 Glucagon (Glucagon 1mg Kit) 1 mg AD PRN IM HYPOGLYCEMIA PROTOCOL 08/26/24 02:00 09/25/24 01:59 Guaifenesin/ Dextromethorphan (RobiTUSSin DM 200/20MG 10ML) 10 ml Q6H PRN PO COUGH 08/31/24 10:30 09/30/24 10:29 Heparin Sodium (Porcine) (HEParin 5,000 UNIT VIAL) 5,000 unit Q12H SQ 08/26/24 21:30 09/01/24 09:57 DC 09/01/24 09:03 5,000 UNIT Hydralazine HCl (APRESOLine 20MG INJ) 10 mg Q6H PRN IV For:SBP above 160;DBP above 90 08/26/24 02:00 09/25/24 01:59 08/27/24 04:00 10 MG Hydralazine HCl ([id number] TAB) 25 mg TID PO 08/26/24 09:00 08/27/24 07:12 DC 08/26/24 21:08 25 MG Hydralazine HCl ([id number] TAB) 50 mg TID PO 08/28/24 09:00 08/28/24 11:31 DC Hydralazine HCl ([id number] TAB) 50 mg TID PO 08/28/24 14:00 09/27/24 13:59 09/02/24 21:37 50 MG Hydralazine HCl ([id number] TAB) 100 mg TID PO 08/27/24 09:00 08/28/24 07:38 DC 08/27/24 09:22 100 MG Hydrochlorothiazide (hydroCHLOROthiazide 25MG) 25 mg DAILY PO 08/29/24 09:00 08/28/24 12:07 DC Insulin Glargine (LANtus 100 UNITS/ML 10 ML VIAL) 10 units BID@0730,2100 SQ 08/29/24 07:30 09/28/24 07:29 09/02/24 21:39 10 UNITS Insulin Human Regular (humuLIN R 100 UNIT/ML 3ML) INSULIN SLIDING SCAL... ACHS SQ 08/26/24 07:30 09/25/24 07:29 08/31/24 21:49 3 UNIT Labetalol HCl (TRANdate 20MG SYG) 10 mg Q6H PRN IV IF SBP GREATER THAN 170 08/26/24 02:00 09/25/24 01:59 08/27/24 05:41 10 MG Lactulose (Constulose 20gm/ 30ml Udcup) 20 gm BID PRN PO CONSTIPATION 08/31/24 13:00 09/30/24 12:59 09/01/24 20:04 20 GM Losartan Potassium (CozAAR 50 mg TAB) 50 mg BID PO 08/27/24 09:00 08/31/24 10:00 DC 08/31/24 09:46 50 MG Magnesium Sulfate 50 ml @ 0 mls/hr PROTOCOL PRN IV OTHER [SEE ORDER COMMENTS] 08/26/24 02:00 09/25/24 01:59 08/26/24 17:15 50 MLS/HR Melatonin (Melatonin) 5 mg HSPRN PRN PO INSOMNIA 09/01/24 23:00 10/01/24 22:59 09/02/24 21:37 5 MG Methylprednisolone Sodium Succinate (Solu-medROL 40MG) 20 mg Q8H IVP 08/29/24 06:00 08/31/24 12:05 DC 08/31/24 06:33 20 MG Methylprednisolone Sodium Succinate (Solu-medROL 40MG) 40 mg BID IVP 08/27/24 21:00 08/28/24 20:59 DC 08/28/24 09:24 40 MG Metoprolol Tartrate (loprESSOR) 100 mg BID PO 08/26/24 09:00 09/25/24 08:59 09/02/24 21:37 100 MG Montelukast Sodium (SinguLAIR) 10 mg DAILY PO 08/27/24 09:00 09/26/24 08:59 09/02/24 08:55 10 MG Morphine Sulfate (morPHINE 2MG SYG) 2 mg Q4H PRN IV MODERATE PAIN (4-6) 08/26/24 02:00 08/31/24 04:59 DC 08/26/24 06:37 2 MG Nicardipine HCl 20 mg/Sodium Chloride 200 ml @ 0 mls/hr AD PRN IV TITRATE 08/26/24 03:00 08/26/24 02:45 DC Nicardipine HCl 25 mg/Sodium Chloride 250 ml @ 0 mls/hr AD PRN IV TITRATE 08/26/24 03:00 08/27/24 18:03 DC 08/27/24 06:46 50 MLS/HR Nifedipine (adALAT 30MG) 30 mg BID PO 08/28/24 09:00 09/27/24 08:59 09/02/24 21:38 30 MG Nifedipine (adALAT 30MG) 60 mg BID PO 08/27/24 09:00 08/28/24 07:38 DC 08/27/24 07:42 60 MG Ondansetron HCl (zoFRAN 4MG INJ) 4 mg Q6H PRN IV NAUSEA/VOMITING 08/26/24 02:00 09/25/24 01:59 Pantoprazole Sodium (PROTonix 40MG INJ) 40 mg DAILY IVP 08/27/24 09:00 09/26/24 08:59 09/03/24 09:07 40 MG Potassium Chloride 100 ml @ 100 mls/hr AD PRN IV POTASSIUM PROTOCOL 08/26/24 02:00 09/25/24 01:59 Potassium Chloride (K-Dur 10meq Sr Tab) 10 meq AD PRN PO POTASSIUM PROTOCOL 08/26/24 18:00 09/25/24 01:59 08/31/24 17:18 10 MEQ Potassium Chloride (K-Dur/Klor-Con 20meq) 10 meq AD PRN PO POTASSIUM PROTOCOL 08/26/24 02:00 08/26/24 17:48 DC Potassium Chloride (KCl 10% Elixir 20meq/15ml) 10 meq AD PRN PO POTASSIUM PROTOCOL 08/26/24 02:00 09/25/24 01:59 Sodium Bicarbonate (Sodium Bicarbonate) 650 mg TID PO 08/28/24 14:00 09/03/24 09:15 DC 09/02/24 21:37 650 MG Sodium Chloride 1,000 ml @ 50 mls/hr Q20H IV 08/26/24 21:00 08/27/24 13:59 DC 08/26/24 21:08 50 MLS/HR Tamsulosin HCl (FloMAX) 0.4 mg BID PO 08/26/24 21:00 09/25/24 20:59 09/02/24 21:37 0.4 MG Vancomycin HCl 250 ml @ 125 mls/hr Q24H IV 08/27/24 12:00 08/29/24 07:19 DC 08/28/24 11:27 125 MLS/HR Vancomycin HCl (Vancomycin Protocol) 1 each AD IV 08/26/24 10:00 08/29/24 07:19 DC Vitamin B Complex/ Vit C/Folic Acid (Nephrovite Tablet) 1 cap DAILY PO 08/26/24 09:00 09/25/24 08:59 09/02/24 08:55 1 CAP Wound Care/ Dressing Products (Venelex Ointment) 1 APPL TID TP 08/26/24 21:00 09/25/24 20:59 09/03/24 09:09 1 GM Diagnostics / Radiology: [COPY/PASTE HERE IF NO REPORTS PLEASE DELETE SECTION] Assessment: Abnormal imaging with dilated loops of colon Plan: Flex sig with decompression in am EDWIN LAGOS STEP DOWN NURSE Sep 03, 2024 14:28
[2024-09-03] MEDS: furoSEMIDE 20 MG TABLET PO SCH (17:05)
--- NOTE | 2024-09-03 20:20 | PN ---
[facility] PROGRESS NOTE Date Patient Seen: Sep 03, 2024 Time of Visit: 11:14 Supervising Physician: DR. ALEXANDRA MORGAN Primary Care Physician: [Dr. Freida Izaguirre] Outpatient Specialists: [ ] Inpatient Consults: DAVE PROBLEM LIST: Sepsis secondary to pyelonephritis, improved Acute kidney injury on top of chronic kidney disease, prerenal, decompensated Metabolic acidosis with incomplete respiratory compensation Acute delirium, not POA, mild Hypertensive urgency, resolved Non-obstructive R-renal pelvic calculus, 7mm per CT abdomen, no calculi per renal U/S CAD s/p remote CABG Chronic A-fib on eliquis outpatient PPM/AICD status Sacral ulcer Plan: Continue with nebulizer treatments monitor for hematuria monitor kidney function Continue oral antihypertensives, monitor BP DC losartan and morphine Continue IV solumedrol Discontinue cefepime and vancomycin INTERVAL HISTORY: [Patient is evaluated at bedside. He has weaned off Cardene drip since this a.m., has initiated antihypertensive medication by mouth with improvement in bl ood pressure. He appears edematous to bilateral lower extremities. Admits some nausea but no vomiting, is tolerating clear diet well. He has mild end expiratory wheezing but is saturating well on room air. WBC improved to 11 today, creatinine remains elevated but is improved to 1.9 today. His renal ultrasound is consistent with renal parenchymal disease. FENA labs suggest pre renal KEVIN. His blood and urine cultures remained negative. Patient okay to downgrade to Med/surg.] 08/28 patient is evaluated at bedside. His white count is downtrending, continues on IV antibiotics. No fever noted overnight. Blood and urine cultures are negative. He was given a dose of Lasix yesterday, and initiated on oral antihypertensive with improvement of blood pressure. His blood pressure was soft this morning with some BP meds held for the same. Renal ultrasound shows no calculi. Per nurse, patient appeared somewhat confused and combative this morning but has since improved. Daughter at bedside states patient normally at this way whenever he is admitted into the hospital. Ammonia lab drawn was within normal limits. ABG was requested which revealed mild metabolic acidosis with incomplete respiratory compensation. 08/29 Patient is evaluated at bedside. He continues with end-expiratory wheezing bilaterally. He denies a hx of COPD or smoking. 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 His antibiotics were discontinued. Blood and urine cultures remain negative. Echocardiogram is within normal limits with EF of 50-55%. 08/30 patient is evaluated at bedside. He continues with shortness of breath, even at rest. His creatinine has significantly evaluated to 3.0 today, he is currently receiving IV fluids. Repeat ABG shows mild metabolic acidosis with incomplete respiratory compensation but is improved from previous. Per nursing staff, patient was unable to tolerate 6 minute walk yesterday due to shortness of breaths, however was saturating well. His antibiotics have been discontinued, CBC is unremarkable. Repeat CXR today is unremarkable. He continues with mild end-expiratory wheezing bilaterally. 08/31 patient is evaluated at bedside. He was weaned off supplemental oxygen now on room air. His wheezing is improved. Blood pressure is within normal limits. He has 350 mL of documented urine output in last 24 hours. His creatinine is worsened to 3.4 today. Blood and urine cultures remained negative. 09/01 patient is evaluated at bedside. He continues on room air. Blood pressure is within normal limits. His respiratory status improved but continues with mild end-expiratory wheezing which seems chronic. Repeat ABG is improved. CBC is grossly unremarkable. Creatinine remains persistently elevated, nephrology is following. Patient is stable for discharge from pulmonary standpoint. His KEVIN is being addressed by primary and nephrology prior to discharge. 09/02 Patient is seen and examined at the bedside, patient with KEVIN he is off lasix, patient with SOB on admission which has improved , plan is to repeat ABG 's Eliquis dose has been decreased CBC remains unremarkable plan is to repeat labs in am, continue monitoring kidney function. 09/03 Patient is awake, alert, well oriented , accompanied by friends, denies fever, chills, nausea or vomiting, linn cath in place no hematuria no signs of bleeding reported, creatinine has improved , we will continue monitoring closely, discharge plan per pcp REVIEW OF SYSTEMS: 12 point ROS reviewed with patient. Pertinent positives mentioned above. Othe rwise negative. PHYSICAL EXAM: GENERAL: alert, weak, awake oriented x 3, no acute distress HEENT: EOMI, Sclera non icteric, moist mucosa NECK: Supple, no JVD, trachea midline LUNGS: Clear breath sounds bilaterally. minimal expiratory wheezing HEART: Regular rate and rhythm. Normal S1 and S2, without murmurs ABD: Abdomen discomfort with palpation. Bowel sounds present, CVA tenderness bilaterally EXT: No clubbing cyanosis or edema NEURO: Alert and oriented to person, follows commands Vital Signs (last 8hr) Date Time Temp Pulse Resp B/P (MAP) Pulse Ox O2 Delivery O2 Flow Rate FiO2 09/03/24 19:00 97.0 89 20 165/66 94 Room Air 09/03/24 18:28 76 20 N/A Room Air 21 09/03/24 18:28 76 20 09/03/24 16:00 98.1 80 17 166/52 94 Room Air 09/03/24 14:25 74 20 LABS: Hematology Labs: Test 09/03/24 05:35 Range/Units White Blood Count 9.5 4.8-10.8 K/uL Red Blood Count 3.07 L 4.50-6.20 MIL/uL Hemoglobin 9.3 L 14.0-18.0 g/dL Hematocrit 28.4 L 42-54 % Mean Corpuscular Volume 92.5 79-99 fL Mean Corpuscular Hemoglobin 30.3 27.0-33.0 pg Mean Corpuscular Hemoglobin Concent 32.7 32.0-36.0 g/dL Red Cell Distribution Width 14.2 11.0-15.5 % Platelet Count 248 130-400 K/uL Mean Platelet Volume 9.4 7.5-10.5 fL Nucleated Red Blood Cells 0.0 0.0-0.19 % Chemistry Labs: Test 09/03/24 19:04 09/03/24 05:35 Range/Units Whole Blood Glucose 98 70-110 MG/DL Sodium Level 141 136-145 mmol/L Potassium Level 4.0 3.5-5.1 mmol/L Chloride Level 108 101-111 mmol/L Carbon Dioxide Level 21 21-32 mmol/L Blood Urea Nitrogen 68 H 7-18 mg/dL Creatinine 2.6 H 0.5-1.3 mg/dL Glomerular Filtration Rate Calc 24 >90 mL/min Random Glucose 82 70-105 mg/dL Lactic Acid Level 1.3 0.8-2.5 mmol/L Total Calcium 8.3 L 8.5-10.1 mg/dL Phosphorus Level 4.0 2.5-4.9 mg/dL Magnesium Level 2.60 H 1.80-2.40 mg/dL Total Bilirubin 0.4 0.2-1.0 mg/dL Aspartate Amino Transf (AST/SGOT) 18 10-37 U/L Alanine Aminotransferase (ALT/SGPT) 28 12-78 U/L Alkaline Phosphatase 46 L 50-136 U/L Total Protein 5.7 L 6.0-8.3 g/dL Albumin 2.5 L 3.5-5.0 g/dL Thyroid Stimulating Hormone (TSH) 1.12 # 0.36-3.74 uIU/mL Coagulation Labs: Test 09/03/24 05:35 Range/Units Prothrombin Time 11.1 9.6-11.6 SEC Prothromb Time International Ratio 1.05 0.85-1.15 Activated Partial Thromboplast Time 28.5 26.3-35.5 SEC DIAGNOSTICS / RADIOLOGY RESULTS: [ ] PLAN NEURO: Minimize central acting medications as possible. Maintain fall precautions, adequate lighting during the day PULMONARY: Supplemental 02 as needed. Maintain aspiration precautions at all times CARDIOVASCULAR: Follow hemodynamics. Vital signs per facility protocol GI & NUTRITION: Continue with nutritional support. Continue stool softeners and laxatives as needed. KIDNEYS & ELECTROLYTES: Strict monitoring of intake, output and overall fluid balance. Avoid nephrotoxic medications to the extent possible. Medications to be dosed according to renal function. Monitor electrolytes and replace as needed ENDOCRINE: Maintain blood glucose between 100-180 at all times. Hypoglycemia protocol in place INFECTIOUS DISEASE: Trend temperature, WBC and procalcitonin level Follow cultures, deescalate antibiotics as soon as possible. Panculture if new onset fever ONCOLOGY/HEMATOLOGY/COAGULATION: Monitor for s/s of bleeding Monitor hemoglobin, coagulation studies as needed SKIN: Pressure ulcer prevention per facility protocol Specialty mattress ORTHO/REHAB: Continue PT/OT Prophylaxis: Continue GI and DVT prophylaxis Code Status: Full Resuscitation Disposition: TBD Other: Time spent on patient care exceeds 45 minutes. This does not include any time spent on procedures. ATTESTATION BY PHYSICIAN Documentation assistance provided by a scribe, information recorded by the scribe was done at my direction and has been reviewed and validated by me." ALEXANDRA MORGAN MD I personally scribed for ALEXANDRA MORGAN MD ([email or web address]) on 09/03/24 at 20:20. Electronically submitted by Gema Boone ([id number]). ALEXANDRA MORGAN MD Sep 03, 2024 20:20
[2024-09-03] MEDS ORDERED: APIXaban 5 MG TABLET PO SCH (21:00)
[2024-09-04] VITALS (15 sets, daily range): BP systolic 137–162; BP diastolic 67–78; PULSE 67–98; RESP 17–20; TEMP 97.6–98.1; O2SAT 94–98
[2024-09-04 06:21] LABS: HEMATOCRIT 29.7 % (42-54); MEAN CORPUSCULAR HEMOGLOBIN 30.8 pg (27.0-33.0); MEAN CORPUSCULAR VOLUME 90.5 fL (79-99); RED BLOOD CELL COUNT(AUTO) 3.28 MIL/uL (4.50-6.20); RED CELL DISTRIBUTION WIDTH 14.3 % (11.0-15.5); WHITE BLOOD COUNT (AUTO) 9.2 K/uL (4.8-10.8)
[2024-09-04 06:33] LABS: ALBUMIN 2.7 g/dL (3.5-5.0); BILIRUBIN,TOTAL 0.5 mg/dL (0.2-1.0); CREATININE 2.6 mg/dL (0.5-1.3); MAGNESIUM 2.2 mg/dL (1.80-2.40); POTASSIUM 3.8 mmol/L (3.5-5.1); TOTAL PROTEIN, SERUM 6.2 g/dL (6.0-8.3)
--- NOTE | 2024-09-04 09:48 | PN ---
FOLLOWUP PROGRESS NOTE SUBJECTIVE: An 78-year-old male with a history of known coronary artery disease. The patient was initially admitted and found to have [id number] renal failure. The patient is now with Griffin catheter in place. The patient's urine output has improved with the diuretics. He has a history of known chronic renal insufficiency and the patient is being seen as a followup visit for all of the above. REVIEW OF SYSTEMS: CONSTITUTIONAL: The patient is feeling weak and tired. HEENT: No change in vision. No change in hearing. CARDIOVASCULAR: There is no current chest pain or palpitation. PULMONARY: Shortness of breath has improved. GASTROINTESTINAL: He is tolerating a diet. MUSCULOSKELETAL: Complaints of weakness. PHYSICAL EXAMINATION: VITAL SIGNS: Blood pressure is 137/69, pulse 80. He is afebrile. GENERAL: Chronically ill male, elderly, lying in bed on the medical floor. HEENT: Head is atraumatic. Pupils are equal, roving to light. Oropharynx is without exudate. Nares clear. NECK: There is no JVP. There is no thyromegaly. No mass. CARDIOVASCULAR: Regular. There is no S3 or S4 gallop. LUNGS: Coarse with equal thoracic movement. ABDOMEN: Soft, nondistended, and nontender. EXTREMITIES: There is no clubbing, no cyanosis. NEUROLOGICAL: He is awake. He is alert. LABORATORY DATA: Sodium 141, potassium 3.8, BUN 58, creatinine is 2.6, hemoglobin 10, hematocrit 39. IMPRESSION: * [id number] renal failure. * Obstructive uropathy. * Coronary artery disease. * Debilitation. PLAN: The patient's creatinine has remained stable overnight. The patient's urine output did improve with the diuretics. The patient has a history of known chronic renal insufficiency. The patient's creatinine is close to his baseline. The patient is being seen by case management for final disposition and we will continue to follow the patient closely. TID: [id number] RECEIPT: [id number]
--- NOTE | 2024-09-04 12:05 | PN ---
[facility] PROGRESS NOTE Date of Service: Sep 04, 2024 Time of Service: 12:03 SUBJECTIVE: 08/27 Pt seen at bedside, no acute events overnight. Pt weaned off cardene drip, started on PO medications. Will monitor throughout the day and possibly dc tomorrow if BP remains stable 08/28 Pt seen at bedside, no acute events overnight. Pt blood pressure well controlled however he has significant wheeze, rhoncous breathing and cough. Will continue with nebulizers and systemic steroid treatment. CO2 low, will order ABG and follow up. Pt mildly delirius today but responds appropriately 08/29 patient seen at bedside, no acute events overnight. He is still has prominent wheeze and rhonchus breathing. There was no evidence of pneumonia on initial workup, chest x-ray was clear and procalcitonin was in normal range. We will discontinue antibiotics at this time and continue with nebulizers and systemic steroids. As patient has been somewhat confused holding cefepime may help improve his mental status however he is also on systemic steroids which can also contribute to some delirium. Physical therapy recommending group home for rehab, we will consult case management for placement. Patient blood sugars have been elevated we will start glargine 10 units twice daily. Creatinine increased from 2.3 up to 2.8, patient was started on bicarbonate yesterday, we will continue to monitor his urine output. 08/30 patient seen at bedside, no acute events overnight. His wheeze has improved significantly today, he is sitting at bedside on room air now. We will continue with nebulizers and systemic steroids. He is pending placement to group home. 08/31 patient seen at bedside, no acute events overnight. He has no complaints at bedside, breathing appears to be improved, he continues on room air. Family recommending group home placement. His BUN/creatinine continue to up trend to 91 and 3.4. He has no history of heart failure, we will bolus 1 L and follow up with his renal function tomorrow. Nephrology consulted for further recommendations. 09/01 blood pressure 126/45, afebrile, saturating normal on room air. CBC shows a hemoglobin of 8.6, hematocrit 25.4, WBC of 12.3, platelet count of 252. Sodium 137, potassium 3.2, BUN of 93, creatinine of 3.3, bicarb of 20. ABG with a pH of 7.37, pCO2 24, bicarbonate of 13.8. Currently the patient on sodium bicarbonate 650 mg p.o. t.i.d.. Nephrology consultation requested, continue to follow input and recommendations. Family recommended group home facility, we will discuss with case management. 09/02 patient's blood pressure 162/56, afebrile, saturating normal on room air. Case discussed with the RN, patient has a large bowel movement this morning, he feels hungry. During my visit he is comfortable sitting in the chair, he feels less distended and better today compared to yesterday. Denies nausea, no vomiting, no abdominal pain. BP done yesterday was showing abnormal bowel gas pattern, ileus favored over low colon obstruction. CT of the abdomen showing mildly dilated air-filled loops of colon, no transition some findings most consistent with gastroenteritis or ileus, no transition zone to suggest obs truction, moderate bilateral renal cortical thinning, minimal bilateral pleural effusions. Surgical consultation requested, we will follow input and recommendation, we will repeat KUB, we will possibly start clear liquid diet. Patient is still with urinary retention, we will attempt to insert Griffin catheter today, if unable we will request Urology consult. Patient noted to have mild bilateral lower extremity edema, we will start Lasix 20 mg p.o. b.i.d.. 09/03 the patient remains admitted to the medical floor, case discussed with the RN, the patient back in the room, unable to lie flat for the Gastrografin enema per surgery recommendation. During my visit patient awake, following commands, not in distress. He remains hemodynamically stable. Hemoglobin 9.3, currently tolerating diet, passing gas. Patient evaluated by General surgery, abdominal distention concerning for sigmoid volvulus. Case discussed with the surgery, GI consulted for decompressive sigmoidoscopy, case discussed, plan to do tomorrow. 09/04 patient is seen and examined at bedside, back in the room, per discussion with the RN, refused flexible sigmoidoscopy. He is alert oriented x3, discussed with the patient the importance of having the procedure done, however the patient refused, he stated that he does not want any further medical management, he wants to go back to group home facility with the hospice services. He is a DNR/DNI. We will discuss with the daughter she is available at bedside. REVIEW OF SYSTEMS 12 point ROS negative unless noted in HPI PHYSICAL EXAM GENERAL APPEARANCE: The patient is awake, alert, and oriented, in no acute cardiopulmonary distress. NEUROLOGICAL: Cranial nerves II-XII grossly intact. Motor is 5/5 in bilateral upper and lower extremities proximal to distal. No sensory deficits. HEENT: Face is symmetric. Pupils are equal and reactive. Extraocular movements are intact. NECK: Supple. No JVD. No thyromegaly. No submental, submandibular, pre- /postauricular, occipital or supraclavicular lymphadenopathy. CHEST: Normal chest expansion. No Telemetry. LUNGS: no wheezing, no rhonchi, no rales CARDIOVASCULAR: Regular. S1 and S2 normal. No appreciable rubs, murmurs or gallops. ABDOMEN: Still mildly distended, bowel sounds present, mildly tympanic. : Deferred. No Griffin. EXTREMITIES: No clubbing. Good capillary refill. SKIN: No skin breakdown. Vital Signs (last 8hr) Date Time Temp Pulse Resp B/P (MAP) Pulse Ox O2 Delivery O2 Flow Rate FiO2 09/04/24 10:45 82 20 09/04/24 08:00 97.5 87 18 137/69 96 Nasal Cannula 3.0 09/04/24 06:46 67 20 N/A Room Air 21 09/04/24 06:44 67 20 09/04/24 04:13 98.1 74 18 162/73 95 Room Air LABS: Laboratory: Test 09/04/24 11:44 09/04/24 06:00 09/03/24 05:35 09/03/24 03:42 Range/Units Whole Blood Glucose 65 L 70-110 MG/DL White Blood Count 9.2 4.8-10.8 K/uL Red Blood Count 3.28 L 4.50-6.20 MIL/uL Hemoglobin 10.1 L 14.0-18.0 g/dL Hematocrit 29.7 L 42-54 % Mean Corpuscular Volume 90.5 79-99 fL Mean Corpuscular Hemoglobin 30.8 27.0-33.0 pg Mean Corpuscular Hemoglobin Concent 34.0 32.0-36.0 g/dL Red Cell Distribution Width 14.3 11.0-15.5 % Platelet Count 260 130-400 K/uL Mean Platelet Volume 9.6 7.5-10.5 fL Nucleated Red Blood Cells 0.0 0.0-0.19 % Sodium Level 141 136-145 mmol/L Potassium Level 3.8 3.5-5.1 mmol/L Chloride Level 107 101-111 mmol/L Carbon Dioxide Level 22 21-32 mmol/L Blood Urea Nitrogen 58 H 7-18 mg/dL Creatinine 2.6 H 0.5-1.3 mg/dL Glomerular Filtration Rate Calc 24 >90 mL/min Random Glucose 75 70-105 mg/dL Total Calcium 8.5 8.5-10.1 mg/dL Magnesium Level 2.20 1.80-2.40 mg/dL Total Bilirubin 0.5 0.2-1.0 mg/dL Aspartate Amino Transf (AST/SGOT) 25 10-37 U/L Alanine Aminotransferase (ALT/SGPT) 38 12-78 U/L Alkaline Phosphatase 49 L 50-136 U/L Total Protein 6.2 6.0-8.3 g/dL Albumin 2.7 L 3.5-5.0 g/dL Prothrombin Time 11.1 9.6-11.6 SEC Prothromb Time International Ratio 1.05 0.85-1.15 Activated Partial Thromboplast Time 28.5 26.3-35.5 SEC Lactic Acid Level 1.3 0.8-2.5 mmol/L Phosphorus Level 4.0 2.5-4.9 mg/dL Thyroid Stimulating Hormone (TSH) 1.12 # 0.36-3.74 uIU/mL Blood Gas Specimen Type Arterial Arterial Blood pH 7.446 7.350-7.450 Arterial Blood Partial Pressure CO2 29 L 35-48 mmHg Arterial Blood Partial Pressure O2 75.3 L 83.0-108.0 mmHg Arterial Blood HCO3 19.5 L 21.0-28.0 mmol/L Arterial Blood Oxygen Saturation 95.8 94.0-98.0 % Arterial Blood Base Excess -3.2 L -2.0-3.0 mmol/L Blood Gas Temperature 37.0 35.5-37.0 CELSIUS Blood Gas Vent Mode RA ROOM AIR FiO2 21.0 % Blood Gas Specimen Comment RR RN YOLANDA Current Medications Medications (Trade) Dose Ordered Sig/Abhijit Route PRN Reason Start Time Stop Time Status Last Admin Dose Admin Acetaminophen (TYLenol 325MG TAB) 650 mg Q4H PRN PO MILD PAIN (1-3) 08/26/24 02:00 09/25/24 01:59 09/03/24 19:30 650 MG Acetaminophen (TYLenol 325MG TAB) 650 mg Q6H PRN PO TEMPERATURE GREATER THAN 101.5 08/26/24 02:00 09/25/24 01:59 Acetylcysteine (MUComyst 10% 4ML) 400mg = 4ml [id number] 09/03/24 00:00 10/03/24 00:00 09/04/24 10:45 400 MG Albuterol (DUOneb) 1 udvial [id number] 08/26/24 02:00 09/25/24 01:59 09/04/24 10:45 1 UDVIAL Amlodipine Besylate (NorvASC 5MG TAB) 5 mg DAILY PO 08/27/24 09:00 08/27/24 07:12 DC Apixaban (EliquIS 2.5 mg) 2.5 mg BID PO 09/02/24 21:00 09/03/24 14:24 DC 09/02/24 21:38 2.5 MG Apixaban (EliquIS) 5 mg BID PO 09/01/24 21:00 09/02/24 16:46 DC 09/02/24 08:56 5 MG Apixaban (EliquIS) 5 mg BID PO 09/03/24 21:00 09/03/24 14:19 DC Budesonide (Pulmicort 0.5 Mg/2ml) 0.5 mg BIDRESP 08/26/24 18:00 09/25/24 17:59 09/04/24 07:59 0.5 MG Cefepime HCl (MAXipime 2 gm vial) 2 gm Q12H IVPB 08/26/24 10:00 08/29/24 07:19 DC 08/28/24 23:16 2 GM Ceftriaxone Sodium 1 gm/ Sodium Chloride 50 ml @ 100 mls/hr BID IV 08/26/24 09:00 08/26/24 01:51 DC Ceftriaxone Sodium (ROCEphine 1G INJ) 1 gm BID IVPB 08/26/24 09:00 08/26/24 09:43 DC 08/26/24 09:15 1 GM Dextrose (D50w) 50 ml AD PRN IV HYPOGLYCEMIA PROTOCOL 08/26/24 02:00 09/25/24 01:59 Epoetin Eros-epbx (Retacrit) 10,000 unit QTU@1600 SQ 09/02/24 16:00 10/02/24 15:59 09/02/24 16:38 10,000 UNIT Furosemide (LASix 20MG TAB) 20 mg BID PO 09/02/24 21:00 09/02/24 17:14 DC Furosemide (LASix 20MG TAB) 20 mg BID@09,17 PO 09/03/24 17:00 10/03/24 16:59 09/03/24 17:05 20 MG Glucagon (Glucagon 1mg Kit) 1 mg AD PRN IM HYPOGLYCEMIA PROTOCOL 08/26/24 02:00 09/25/24 01:59 Guaifenesin/ Dextromethorphan (RobiTUSSin DM 200/20MG 10ML) 10 ml Q6H PRN PO COUGH 08/31/24 10:30 09/30/24 10:29 Heparin Sodium (Porcine) (HEParin 5,000 UNIT VIAL) 5,000 unit Q12H SQ 08/26/24 21:30 09/01/24 09:57 DC 09/01/24 09:03 5,000 UNIT Hydralazine HCl (APRESOLine 20MG INJ) 10 mg Q6H PRN IV For:SBP above 160;DBP above 90 08/26/24 02:00 09/25/24 01:59 08/27/24 04:00 10 MG Hydralazine HCl (LQYPPVZqja44MG TAB) 25 mg TID PO 08/26/24 09:00 08/27/24 07:12 DC 08/26/24 21:08 25 MG Hydralazine HCl ([id number] TAB) 50 mg TID PO 08/28/24 09:00 08/28/24 11:31 DC Hydralazine HCl ([id number] TAB) 50 mg TID PO 08/28/24 14:00 09/27/24 13:59 09/03/24 17:05 50 MG Hydralazine HCl ([id number] TAB) 100 mg TID PO 08/27/24 09:00 08/28/24 07:38 DC 08/27/24 09:22 100 MG Hydrochlorothiazide (hydroCHLOROthiazide 25MG) 25 mg DAILY PO 08/29/24 09:00 08/28/24 12:07 DC Insulin Glargine (LANtus 100 UNITS/ML 10 ML VIAL) 10 units BID@0730,2100 SQ 08/29/24 07:30 09/28/24 07:29 09/02/24 21:39 10 UNITS Insulin Human Regular (humuLIN R 100 UNIT/ML 3ML) INSULIN SLIDING SCAL... ACHS SQ 08/26/24 07:30 09/25/24 07:29 08/31/24 21:49 3 UNIT Labetalol HCl (TRANdate 20MG SYG) 10 mg Q6H PRN IV IF SBP GREATER THAN 170 08/26/24 02:00 09/25/24 01:59 08/27/24 05:41 10 MG Lactulose (Constulose 20gm/ 30ml Udcup) 20 gm BID PRN PO CONSTIPATION 08/31/24 13:00 09/30/24 12:59 09/01/24 20:04 20 GM Losartan Potassium (CozAAR 50 mg TAB) 50 mg BID PO 08/27/24 09:00 08/31/24 10:00 DC 08/31/24 09:46 50 MG Magnesium Sulfate 50 ml @ 0 mls/hr PROTOCOL PRN IV OTHER [SEE ORDER COMMENTS] 08/26/24 02:00 09/25/24 01:59 08/26/24 17:15 50 MLS/HR Melatonin (Melatonin) 5 mg HSPRN PRN PO INSOMNIA 09/01/24 23:00 10/01/24 22:59 09/03/24 20:06 5 MG Methylprednisolone Sodium Succinate (Solu-medROL 40MG) 20 mg Q8H IVP 08/29/24 06:00 08/31/24 12:05 DC 08/31/24 06:33 20 MG Methylprednisolone Sodium Succinate (Solu-medROL 40MG) 40 mg BID IVP 08/27/24 21:00 08/28/24 20:59 DC 08/28/24 09:24 40 MG Metoprolol Tartrate (loprESSOR) 100 mg BID PO 08/26/24 09:00 09/25/24 08:59 09/03/24 20:06 100 MG Montelukast Sodium (SinguLAIR) 10 mg DAILY PO 08/27/24 09:00 09/26/24 08:59 09/02/24 08:55 10 MG Morphine Sulfate (morPHINE 2MG SYG) 2 mg Q4H PRN IV MODERATE PAIN (4-6) 08/26/24 02:00 08/31/24 04:59 DC 08/26/24 06:37 2 MG Nicardipine HCl 20 mg/Sodium Chloride 200 ml @ 0 mls/hr AD PRN IV TITRATE 08/26/24 03:00 08/26/24 02:45 DC Nicardipine HCl 25 mg/Sodium Chloride 250 ml @ 0 mls/hr AD PRN IV TITRATE 08/26/24 03:00 08/27/24 18:03 DC 08/27/24 06:46 50 MLS/HR Nifedipine (adALAT 30MG) 30 mg BID PO 08/28/24 09:00 09/27/24 08:59 09/03/24 20:06 30 MG Nifedipine (adALAT 30MG) 60 mg BID PO 08/27/24 09:00 08/28/24 07:38 DC 08/27/24 07:42 60 MG Ondansetron HCl (zoFRAN 4MG INJ) 4 mg Q6H PRN IV NAUSEA/VOMITING 08/26/24 02:00 09/25/24 01:59 Pantoprazole Sodium (PROTonix 40MG INJ) 40 mg DAILY IVP 08/27/24 09:00 09/26/24 08:59 09/04/24 09:01 40 MG Potassium Chloride 100 ml @ 100 mls/hr AD PRN IV POTASSIUM PROTOCOL 08/26/24 02:00 09/25/24 01:59 Potassium Chloride (K-Dur 10meq Sr Tab) 10 meq AD PRN PO POTASSIUM PROTOCOL 08/26/24 18:00 09/25/24 01:59 08/31/24 17:18 10 MEQ Potassium Chloride (K-Dur/Klor-Con 20meq) 10 meq AD PRN PO POTASSIUM PROTOCOL 08/26/24 02:00 08/26/24 17:48 DC Potassium Chloride (KCl 10% Elixir 20meq/15ml) 10 meq AD PRN PO POTASSIUM PROTOCOL 08/26/24 02:00 09/25/24 01:59 Sodium Bicarbonate (Sodium Bicarbonate) 650 mg TID PO 08/28/24 14:00 09/03/24 09:15 DC 09/02/24 21:37 650 MG Sodium Chloride 1,000 ml @ 50 mls/hr Q20H IV 08/26/24 21:00 08/27/24 13:59 DC 08/26/24 21:08 50 MLS/HR Tamsulosin HCl (FloMAX) 0.4 mg BID PO 08/26/24 21:00 09/25/24 20:59 09/03/24 20:06 0.4 MG Vancomycin HCl 250 ml @ 125 mls/hr Q24H IV 08/27/24 12:00 08/29/24 07:19 DC 08/28/24 11:27 125 MLS/HR Vancomycin HCl (Vancomycin Protocol) 1 each AD IV 08/26/24 10:00 08/29/24 07:19 DC Vitamin B Complex/ Vit C/Folic Acid (Nephrovite Tablet) 1 cap DAILY PO 08/26/24 09:00 09/25/24 08:59 09/02/24 08:55 1 CAP Wound Care/ Dressing Products (Venelex Ointment) 1 APPL TID TP 08/26/24 21:00 09/25/24 20:59 09/04/24 08:54 1 GM DIAGNOSTICS / RADIOLOGY: [ ] ASSESSMENT: Sepsis POA Possible pyelonephritis POA Acute kidney injury POA Kidney stone POA Hypertensive urgency POA Acute normocytic normochromic anemia POA Acute leukocytosis POA CHF POA Debility POA Diabetes POA Hyponatremia POA Dehydration POA Hyperlipidemia POA 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 Atrial fibrillation on chronic anticoagulation POA Sacral ulcer POA Abdominal distention, possible ileus versus concern for sigmoid volvulus Urinary retention with indwelling Griffin catheter in place PLAN: Patient remains admitted to the medical floor Patient was noted to have the abdominal distention yesterday, with KUB and CT abdomen with possible ileus, no transition point to suggest obstruction, possible gastroenteritis as well. Patient had a good bowel movement yesterday, repeat KUB showing abnormal but nonspecific bowel gas pattern unchanged compared to prior study. Patient evaluated by General surgery, concern for sigmoid volvulus, modified barium enema recommended, patient unable to lie flat, case discussed, GI consulted, plan for sigmoidoscopy , however the patient refused, wants to go back to group home facility with hospice. Discussed with case management. NEURO: Minimize central acting medications as possible. Fall Precautions. Well lighted room through the day and minimize interruptions through the night to prevent acute delirium. PULMONARY: Supplemental 02 as needed BiPAP as necessary, for respiratory distress Titrate Fio2 to keep Spo2 > or = 90% DuoNebs and CPT as needed IS hourly while awake for pulmonary hygiene prn Out of bed to chair as tolerated Maintain aspiration precautions at all times CARDIOVASCULAR: Follow hemodynamics. Vital signs per facility protocol GI & NUTRITION: Continue nutritional support Aspirations precautions Prokinetic agents and laxatives as needed KIDNEYS & ELECTROLYTES: Strict monitoring of intake and output Daily weights Avoid nephrotoxic agents Monitor electrolytes and replace as needed Goal urine output of 30mL/hr or 0.5mL/kg/hr Medications to be dosed according to renal function. Avoid contrast if possible ENDOCRINE: Maintain blood glucose between 100-180 at all times. Insulin sliding scale for blood glucose management Hypoglycemia and hyperglycemia protocol in place INFECTIOUS DISEASE: Trend temperature, WBC and procalcitonin level Follow cultures, deescalate antibiotics as soon as possible. Panculture if new onset fever HEMATOLOGY & COAGULATION: Monitor H&H. Keep Hgb > 7 Transfuse 1 unit of PRBC for Hgb < 7 Transfuse 1 pack of platelets of platelets < 20, 000 Watch for any signs and symptoms of bleeding SKIN: Pressure ulcer prevention per facility protocol Specialty mattress as needed ORTHO/REHAB Continue PT/OT PRN: MEDICATIONS Tylenol 650 mg po every 4 hrs for fever zofran 4 mg IV every 6 hrs for n/v Hydralazine 5 mg IV every 4 hrs systolic pressure > 160 bowel regiment: lactulose 20 gm PO BID PRN constipation Supportive measures: Continue GI and DVT prophylaxis Disposition: Pending improvement in clinical condition All questions answered time spent: > 35 min BRIANNA MENDEZ MD Sep 04, 2024 12:05
[2024-09-04] MEDS ORDERED: OLOP5DRO26 OU (13:04)
[2024-09-04] MEDS ORDERED: LORA10TA7 PO (13:04)
[2024-09-04] MEDS ORDERED: HYDR25TA PO (13:04)
[2024-09-04] MEDS ORDERED: FLUT16H EN (13:04)
[2024-09-04] MEDS: furoSEMIDE 40MG VIAL IV ONE (15:01)
--- NOTE | 2024-09-04 17:13 | PN ---
[facility] PROGRESS NOTE Date Patient Seen: Sep 04, 2024 Time of Visit: 14:02 Supervising Physician: DR. KATHIE HORTA Primary Care Physician: [Dr. Freida Izaguirre] Outpatient Specialists: [ ] Inpatient Consults: DAVE PROBLEM LIST: ANASARCA Sepsis secondary to pyelonephritis, improved Acute kidney injury on top of chronic kidney disease, prerenal, decompensated Metabolic acidosis with incomplete respiratory compensation Acute delirium, not POA, mild Hypertensive urgency, resolved Non-obstructive R-renal pelvic calculus, 7mm per CT abdomen, no calculi per renal U/S CAD s/p remote CABG Chronic A-fib on eliquis outpatient PPM/AICD status Sacral ulcer Plan: Lasix 80 mg IV single dose. Continue with nebulizer treatments monitor for hematuria monitor kidney function Continue oral antihypertensives, monitor BP INTERVAL HISTORY: [Patient is evaluated at bedside. He has weaned off Cardene drip since this a.m., has initiated antihypertensive medication by mouth with improvement in blood pressure. He appears edematous to bilateral lower extremities. Admits some nausea but no vomiting, is tolerating clear diet well. He has mild end expiratory wheezing but is saturating well on room air. WBC improved to 11 today, creatinine remains elevated but is improved to 1.9 today. His renal ultrasound is consistent with renal parenchymal disease. FENA labs suggest prerenal KEVIN. His blood and urine cultures remained negative. Patient okay to downgrade to Med/surg.] 08/28 patient is evaluated at bedside. His white count is downtrending, continues on IV antibiotics. No fever noted overnight. Blood and urine cultures are negative. He was given a dose of Lasix yesterday, and initiated on oral antihypertensive with improvement of blood pressure. His blood pressure was soft this morning with some BP meds held for the same. Renal ultrasound shows no calculi. Per nurse, patient appeared somewhat confused and combative this morning but has since improved. Daughter at bedside states patient normally at this way whenever he is admitted into the hospital. Ammonia lab drawn was within normal limits. ABG was requested which revealed mild metabolic acidosis with incomplete respiratory compensation. 08/29 Patient is evaluated at bedside. He continues with end-expiratory wheezing bilaterally. He denies a hx of COPD or smoking. Has never seen a physician relations specialist outpatient. His antibiotics were discontinued. Blood and urine cultures remain negative. Echocardiogram is within normal limits with EF of 50-55%. 08/30 patient is evaluated at bedside. He continues with shortness of breath, even at rest. His creatinine has significantly evaluated to 3.0 today, he is currently receiving IV fluids. Repeat ABG shows mild metabolic acidosis with incomplete respiratory compensation but is improved from previous. Per nursing staff, patient was unable to tolerate 6 minute walk yesterday due to shortness of breaths, however was saturating well. His antibiotics have been discontinued, CBC is unremarkable. Repeat CXR today is unremarkable. He con tinues with mild end-expiratory wheezing bilaterally. 08/31 patient is evaluated at bedside. He was weaned off supplemental oxygen now on room air. His wheezing is improved. Blood pressure is within normal limits. He has 350 mL of documented urine output in last 24 hours. His creatinine is worsened to 3.4 today. Blood and urine cultures remained negative. 09/01 patient is evaluated at bedside. He continues on room air. Blood pressure is within normal limits. His respiratory status improved but continues with mild end-expiratory wheezing which seems chronic. Repeat ABG is improved. CBC is grossly unremarkable. Creatinine remains persistently elevated, nephrology is following. Patient is stable for discharge from pulmonary standpoint. His KEVIN is being addressed by primary and nephrology prior to discharge. 09/02 Patient is seen and examined at the bedside, patient with KEVIN he is off lasix, patient with SOB on admission which has improved , plan is to repeat ABG's Eliquis dose has been decreased CBC remains unremarkable plan is to repeat labs in am, continue monitoring kidney function. 09/03 Patient is awake, alert, well oriented , accompanied by friends, denies fever, chills, nausea or vomiting, linn cath in place no hematuria no signs of bleeding reported, creatinine has improved , we will continue monitoring closely, discharge plan per pcp 09/04 Patient is awake, alert, well oriented, no fever, no chills, no headaches or dizziness noted with Anasarca therefore plan is to give an extra dose of Lasix 80 mg IV we will continue monitoring closely , Plan is to Stop Epogen due to high risk of thrmbosis patient is not a dialysis patient , antibiotics stopped already. chest x ray reviewed, LLL infiltrates has resolved, blood culture negative, urine culture negative. REVIEW OF SYSTEMS: 12 point ROS reviewed with patient. Pertinent positives mentioned above. Otherwise negative. PHYSICAL EXAM: GENERAL: alert, weak, awake oriented x 3, no acute distress HEENT: EOMI, Sclera non icteric, moist mucosa NECK: Supple, no JVD, trachea midline LUNGS: Clear breath sounds bilaterally. minimal expiratory wheezing HEART: Regular rate and rhythm. Normal S1 and S2, without murmurs ABD: Abdomen discomfort with palpation. Bowel sounds present, CVA tenderness bilaterally EXT: No clubbing cyanosis or edema NEURO: Alert and oriented to person, follows commands Vital Signs (last 8hr) Date Time Temp Pulse Resp B/P (MAP) Pulse Ox O2 Delivery O2 Flow Rate FiO2 09/04/24 16:00 98.1 85 18 153/67 93 Room Air 09/04/24 14:19 87 20 09/04/24 14:17 96 Room Air* 0 21 09/04/24 12:00 89 18 142/78 96 Room Air 09/04/24 10:45 82 20 LABS: Hematology Labs: Test 09/04/24 06:00 Range/Units White Blood Count 9.2 4.8-10.8 K/uL Red Blood Count 3.28 L 4.50-6.20 MIL/uL Hemoglobin 10.1 L 14.0-18.0 g/dL Hematocrit 29.7 L 42-54 % Mean Corpuscular Volume 90.5 79-99 fL Mean Corpuscular Hemoglobin 30.8 27.0-33.0 pg Mean Corpuscular Hemoglobin Concent 34.0 32.0-36.0 g/dL Red Cell Distribution Width 14.3 11.0-15.5 % Platelet Count 260 130-400 K/uL Mean Platelet Volume 9.6 7.5-10.5 fL Nucleated Red Blood Cells 0.0 0.0-0.19 % Chemistry Labs: Test 09/04/24 15:25 09/04/24 06:00 09/03/24 05:35 Range/Units Whole Blood Glucose 79 70-110 MG/DL Sodium Level 141 136-145 mmol/L Potassium Level 3.8 3.5-5.1 mmol/L Chloride Level 107 101-111 mmol/L Carbon Dioxide Level 22 21-32 mmol/L Blood Urea Nitrogen 58 H 7-18 mg/dL Creatinine 2.6 H 0.5-1.3 mg/dL Glomerular Filtration Rate Calc 24 >90 mL/min Random Glucose 75 70-105 mg/dL Total Calcium 8.5 8.5-10.1 mg/dL Magnesium Level 2.20 1.80-2.40 mg/dL Total Bilirubin 0.5 0.2-1.0 mg/dL Aspartate Amino Transf (AST/SGOT) 25 10-37 U/L Alanine Aminotransferase (ALT/SGPT) 38 12-78 U/L Alkaline Phosphatase 49 L 50-136 U/L Total Protein 6.2 6.0-8.3 g/dL Albumin 2.7 L 3.5-5.0 g/dL Lactic Acid Level 1.3 0.8-2.5 mmol/L Phosphorus Level 4.0 2.5-4.9 mg/dL Thyroid Stimulating Hormone (TSH) 1.12 # 0.36-3.74 uIU/mL Coagulation Labs: Test 09/03/24 05:35 Range/Units Prothrombin Time 11.1 9.6-11.6 SEC Prothromb Time International Ratio 1.05 0.85-1.15 Activated Partial Thromboplast Time 28.5 26.3-35.5 SEC DIAGNOSTICS / RADIOLOGY RESULTS: [ ] PLAN Stop Epogen due to high risk of thrombosis Antibiotic stopped NEURO: Minimize central acting medications as possible. Maintain fall precautions, adequate lighting during the day PULMONARY: Supplemental 02 as needed. Maintain aspiration precautions at all times CARDIOVASCULAR: Follow hemodynamics. Vital signs per facility protocol GI & NUTRITION: Continue with nutritional support. Continue stool softeners and laxatives as needed. KIDNEYS & ELECTROLYTES: Strict monitoring of intake, output and overall fluid balance. Avoid nephrotoxic medications to the extent possible. Medications to be dosed according to renal function. Monitor electrolytes and replace as needed ENDOCRINE: Maintain blood glucose between 100-180 at all times. Hypoglycemia protocol in place INFECTIOUS DISEASE: Trend temperature, WBC and procalcitonin level Follow cultures, deescalate antibiotics as soon as possible. Panculture if new onset fever ONCOLOGY/HEMATOLOGY/COAGULATION: Monitor for s/s of bleeding Monitor hemoglobin, coagulation studies as needed SKIN: Pressure ulcer prevention per facility protocol Specialty mattress ORTHO/REHAB: Continue PT/OT Prophylaxis: Continue GI and DVT prophylaxis Code Status: Full Resuscitation Disposition: TBD Other: Time spent on patient care exceeds 45 minutes. This does not include any time spent on procedures. ATTESTATION BY PHYSICIAN Documentation assistance provided by a scribe, information recorded by the scribe was done at my direction and has been reviewed and validated by me." KATHIE HORTA M MD I personally scribed for KATHIE HORTA MD ([email or web address]) on 09/04/24 at 17:13. Electronically submitted by Gema Boone ([id number]). I personally scribed for KATHIE HORTA MD ([email or web address]) on 09/04/24 at 17:23. Electronically submitted by Gema Boone ([id number]). KATHIE HORTA MD Sep 04, 2024 17:13
--- NOTE | 2024-09-04 20:25 | NUR ---
MEDS SHIFT ASSESSMENT DONE, PLEASE REFER TO CHART. DUE MEDS ADMINISTERED, TOLERATED WELL. KEPT COMFORTABLE IN BED WITH HOB ELEVATED. CALL LIGHT WITHIN REACH. BED ALARM ACTIVATED. INSTRUCTED TO BE NPO POST MN FOR GI PROCEDURE IN AM. PT VERBALIZES UNDERSTANDING.
--- NOTE | 2024-09-04 21:41 | PN ---
GASTROENTEROLOGY PROGRESS NOTE Date of Visit: Sep 04, 2024 Time of Visit: 21:40 Events / Notes: No acute events overnight. Patient was deferring procedure today; however, daughter and hospitalist had more extensive conversation and all are in agreement to proceed. Review of Systems: CONSTITUTIONAL: No malaise or change in sensation of wellbeing. ENMT: No rhinorrhea, otorrhea, sinus pain, ear ache. CARDIOVASCULAR: No angina, palpitations, orthopnea or paroxysmal dyspnea. RESPIRATORY: No SOB. GASTROINTESTINAL: No abdominal pain, nausea, vomiting, diarrhea, hematemesis, melena or change in the patient's habitual bowel movements consistency/number. GENITOURINARY: No dysuria, hematuria or change in bladder continence. MUSCULOSKELETAL: No new muscle pain or decrease in muscular strength. No new joint swelling, redness or tenderness. SKIN: No new rash. Physical Exam: GEN: Awake, alert, oriented in person, time and place, and in no acute distress. HEENT: No sinus tenderness. Tympanic membranes were not examined. No rhinorrhea. Oral pharyngeal mucosa is pink, moist and within normal limits. Neck is supple with no cervical lymphadenopathy, thyromegaly or JVD. CHEST: Inspection, palpation and percussion of the chest were unremarkable. Lung auscultation revealed normal breath sounds bilaterally. CARDIAC: PMI is within normal limits. Heart sounds are regular. Normal S1, S2. No gallop or murmur. ABD: Soft, non-tender and not distended. No peritoneal signs on palpation. No organomegaly. Normal bowel sounds. EXT: No cyanosis or clubbing. No edema. SKIN: Intact. No rashes. JOINTS: No evidence of synovitis or acute arthritis. NEURO: Alert and oriented to name, place and person. Cranial nerve examination is unremarkable. No focal motor deficits. Normal speech. Gait is normal. Strength is normal. Vital Signs (last 8hr) Date Time Temp Pulse Resp B/P (MAP) Pulse Ox O2 Delivery O2 Flow Rate FiO2 09/04/24 20:36 98.1 98 19 162/71 94 Room Air 09/04/24 18:30 90 17 N/A Room Air 21 09/04/24 18:30 90 17 09/04/24 16:00 98.1 85 18 153/67 93 Room Air 09/04/24 14:19 87 20 09/04/24 14:17 96 Room Air* 0 21 Laboratory: [ ] Laboratory: Test 09/04/24 19:22 09/04/24 06:00 09/03/24 05:35 09/03/24 03:42 Range/Units Whole Blood Glucose 75 70-110 MG/DL White Blood Count 9.2 4.8-10.8 K/uL Red Blood Count 3.28 L 4.50-6.20 MIL/uL Hemoglobin 10.1 L 14.0-18.0 g/dL Hematocrit 29.7 L 42-54 % Mean Corpuscular Volume 90.5 79-99 fL Mean Corpuscular Hemoglobin 30.8 27.0-33.0 pg Mean Corpuscular Hemoglobin Concent 34.0 32.0-36.0 g/dL Red Cell Distribution Width 14.3 11.0-15.5 % Platelet Count 260 130-400 K/uL Mean Platelet Volume 9.6 7.5-10.5 fL Nucleated Red Blood Cells 0.0 0.0-0.19 % Sodium Level 141 136-145 mmol/L Potassium Level 3.8 3.5-5.1 mmol/L Chloride Level 107 101-111 mmol/L Carbon Dioxide Level 22 21-32 mmol/L Blood Urea Nitrogen 58 H 7-18 mg/dL Creatinine 2.6 H 0.5-1.3 mg/dL Glomerular Filtration Rate Calc 24 >90 mL/min Random Glucose 75 70-105 mg/dL Total Calcium 8.5 8.5-10.1 mg/dL Magnesium Level 2.20 1.80-2.40 mg/dL Total Bilirubin 0.5 0.2-1.0 mg/dL Aspartate Amino Transf (AST/SGOT) 25 10-37 U/L Alanine Aminotransferase (ALT/SGPT) 38 12-78 U/L Alkaline Phosphatase 49 L 50-136 U/L Total Protein 6.2 6.0-8.3 g/dL Albumin 2.7 L 3.5-5.0 g/dL Prothrombin Time 11.1 9.6-11.6 SEC Prothromb Time International Ratio 1.05 0.85-1.15 Activated Partial Thromboplast Time 28.5 26.3-35.5 SEC Lactic Acid Level 1.3 0.8-2.5 mmol/L Phosphorus Level 4.0 2.5-4.9 mg/dL Thyroid Stimulating Hormone (TSH) 1.12 # 0.36-3.74 uIU/mL Blood Gas Specimen Type Arterial Arterial Blood pH 7.446 7.350-7.450 Arterial Blood Partial Pressure CO2 29 L 35-48 mmHg Arterial Blood Partial Pressure O2 75.3 L 83.0-108.0 mmHg Arterial Blood HCO3 19.5 L 21.0-28.0 mmol/L Arterial Blood Oxygen Saturation 95.8 94.0-98.0 % Arterial Blood Base Excess -3.2 L -2.0-3.0 mmol/L Blood Gas Temperature 37.0 35.5-37.0 CELSIUS Blood Gas Vent Mode RA ROOM AIR FiO2 21.0 % Blood Gas Specimen Comment RR RN YOLANDA Current Medications Medications (Trade) Dose Ordered Sig/Abhijit Route PRN Reason Start Time Stop Time Status Last Admin Dose Admin Acetaminophen (TYLenol 325MG TAB) 650 mg Q4H PRN PO MILD PAIN (1-3) 08/26/24 02:00 09/25/24 01:59 09/03/24 19:30 650 MG Acetaminophen (TYLenol 325MG TAB) 650 mg Q6H PRN PO TEMPERATURE GREATER THAN 101.5 08/26/24 02:00 09/25/24 01:59 Acetylcysteine (MUComyst 10% 4ML) 400mg = 4ml [id number] IH 09/03/24 00:00 10/03/24 00:00 09/04/24 18:27 400 MG Albuterol (DUOneb) 1 udvial [id number] IH 08/26/24 02:00 09/25/24 01:59 09/04/24 18:27 1 UDVIAL Amlodipine Besylate (NorvASC 5MG TAB) 5 mg DAILY PO 08/27/24 09:00 08/27/24 07:12 DC Apixaban (EliquIS 2.5 mg) 2.5 mg BID PO 09/02/24 21:00 09/03/24 14:24 DC 09/02/24 21:38 2.5 MG Apixaban (EliquIS) 5 mg BID PO 09/01/24 21:00 09/02/24 16:46 DC 09/02/24 08:56 5 MG Apixaban (EliquIS) 5 mg BID PO 09/03/24 21:00 09/03/24 14:19 DC Budesonide (Pulmicort 0.5 Mg/2ml) 0.5 mg BIDRESP IH 08/26/24 18:00 09/25/24 17:59 09/04/24 18:27 0.5 MG Cefepime HCl (MAXipime 2 gm vial) 2 gm Q12H IVPB 08/26/24 10:00 08/29/24 07:19 DC 08/28/24 23:16 2 GM Ceftriaxone Sodium 1 gm/ Sodium Chloride 50 ml @ 100 mls/hr BID IV 08/26/24 09:00 08/26/24 01:51 DC Ceftriaxone Sodium (ROCEphine 1G INJ) 1 gm BID IVPB 08/26/24 09:00 08/26/24 09:43 DC 08/26/24 09:15 1 GM Dextrose (D50w) 50 ml AD PRN IV HYPOGLYCEMIA PROTOCOL 08/26/24 02:00 09/25/24 01:59 Epoetin Eros-epbx (Retacrit) 10,000 unit QTU@1600 SQ 09/02/24 16:00 10/02/24 15:59 09/02/24 16:38 10,000 UNIT Furosemide (LASix 20MG TAB) 20 mg BID PO 09/02/24 21:00 09/02/24 17:14 DC Furosemide (LASix 20MG TAB) 20 mg BID@09,17 PO 09/03/24 17:00 10/03/24 16:59 09/03/24 17:05 20 MG Glucagon (Glucagon 1mg Kit) 1 mg AD PRN IM HYPOGLYCEMIA PROTOCOL 08/26/24 02:00 09/25/24 01:59 Guaifenesin/ Dextromethorphan (RobiTUSSin DM 200/20MG 10ML) 10 ml Q6H PRN PO COUGH 08/31/24 10:30 09/30/24 10:29 Heparin Sodium (Porcine) (HEParin 5,000 UNIT VIAL) 5,000 unit Q12H SQ 08/26/24 21:30 09/01/24 09:57 DC 09/01/24 09:03 5,000 UNIT Hydralazine HCl (APRESOLine 20MG INJ) 10 mg Q6H PRN IV For:SBP above 160;DBP above 90 08/26/24 02:00 09/25/24 01:59 08/27/24 04:00 10 MG Hydralazine HCl ([id number] TAB) 25 mg TID PO 08/26/24 09:00 08/27/24 07:12 DC 08/26/24 21:08 25 MG Hydralazine HCl ([id number] TAB) 50 mg TID PO 08/28/24 09:00 08/28/24 11:31 DC Hydralazine HCl ([id number] TAB) 50 mg TID PO 08/28/24 14:00 09/27/24 13:59 09/04/24 20:24 50 MG Hydralazine HCl ([id number] TAB) 100 mg TID PO 08/27/24 09:00 08/28/24 07:38 DC 08/27/24 09:22 100 MG Hydrochlorothiazide (hydroCHLOROthiazide 25MG) 25 mg DAILY PO 08/29/24 09:00 08/28/24 12:07 DC Insulin Glargine (LANtus 100 UNITS/ML 10 ML VIAL) 10 units BID@0730,2100 SQ 08/29/24 07:30 09/28/24 07:29 09/02/24 21:39 10 UNITS Insulin Human Regular (humuLIN R 100 UNIT/ML 3ML) INSULIN SLIDING SCAL... ACHS SQ 08/26/24 07:30 09/25/24 07:29 08/31/24 21:49 3 UNIT Labetalol HCl (TRANdate 20MG SYG) 10 mg Q6H PRN IV IF SBP GREATER THAN 170 08/26/24 02:00 09/25/24 01:59 08/27/24 05:41 10 MG Lactulose (Constulose 20gm/ 30ml Udcup) 20 gm BID PRN PO CONSTIPATION 08/31/24 13:00 09/30/24 12:59 09/01/24 20:04 20 GM Losartan Potassium (CozAAR 50 mg TAB) 50 mg BID PO 08/27/24 09:00 08/31/24 10:00 DC 08/31/24 09:46 50 MG Magnesium Sulfate 50 ml @ 0 mls/hr PROTOCOL PRN IV OTHER [SEE ORDER COMMENTS] 08/26/24 02:00 09/25/24 01:59 08/26/24 17:15 50 MLS/HR Melatonin (Melatonin) 5 mg HSPRN PRN PO INSOMNIA 09/01/24 23:00 10/01/24 22:59 09/03/24 20:06 5 MG Methylprednisolone Sodium Succinate (Solu-medROL 40MG) 20 mg Q8H IVP 08/29/24 06:00 08/31/24 12:05 DC 08/31/24 06:33 20 MG Methylprednisolone Sodium Succinate (Solu-medROL 40MG) 40 mg BID IVP 08/27/24 21:00 08/28/24 20:59 DC 08/28/24 09:24 40 MG Metoprolol Tartrate (loprESSOR) 100 mg BID PO 08/26/24 09:00 09/25/24 08:59 09/04/24 20:23 100 MG Montelukast Sodium (SinguLAIR) 10 mg DAILY PO 08/27/24 09:00 09/26/24 08:59 09/02/24 08:55 10 MG Morphine Sulfate (morPHINE 2MG SYG) 2 mg Q4H PRN IV MODERATE PAIN (4-6) 08/26/24 02:00 08/31/24 04:59 DC 08/26/24 06:37 2 MG Nicardipine HCl 20 mg/Sodium Chloride 200 ml @ 0 mls/hr AD PRN IV TITRATE 08/26/24 03:00 08/26/24 02:45 DC Nicardipine HCl 25 mg/Sodium Chloride 250 ml @ 0 mls/hr AD PRN IV TITRATE 08/26/24 03:00 08/27/24 18:03 DC 08/27/24 06:46 50 MLS/HR Nifedipine (adALAT 30MG) 30 mg BID PO 08/28/24 09:00 09/27/24 08:59 09/04/24 20:23 30 MG Nifedipine (adALAT 30MG) 60 mg BID PO 08/27/24 09:00 08/28/24 07:38 DC 08/27/24 07:42 60 MG Ondansetron HCl (zoFRAN 4MG INJ) 4 mg Q6H PRN IV NAUSEA/VOMITING 08/26/24 02:00 09/25/24 01:59 Pantoprazole Sodium (PROTonix 40MG INJ) 40 mg DAILY IVP 08/27/24 09:00 09/26/24 08:59 09/04/24 09:01 40 MG Potassium Chloride 100 ml @ 100 mls/hr AD PRN IV POTASSIUM PROTOCOL 08/26/24 02:00 09/25/24 01:59 Potassium Chloride (K-Dur 10meq Sr Tab) 10 meq AD PRN PO POTASSIUM PROTOCOL 08/26/24 18:00 09/25/24 01:59 08/31/24 17:18 10 MEQ Potassium Chloride (K-Dur/Klor-Con 20meq) 10 meq AD PRN PO POTASSIUM PROTOCOL 08/26/24 02:00 08/26/24 17:48 DC Potassium Chloride (KCl 10% Elixir 20meq/15ml) 10 meq AD PRN PO POTASSIUM PROTOCOL 08/26/24 02:00 09/25/24 01:59 Sodium Bicarbonate (Sodium Bicarbonate) 650 mg TID PO 08/28/24 14:00 09/03/24 09:15 DC 09/02/24 21:37 650 MG Sodium Chloride 1,000 ml @ 50 mls/hr Q20H IV 08/26/24 21:00 08/27/24 13:59 DC 08/26/24 21:08 50 MLS/HR Tamsulosin HCl (FloMAX) 0.4 mg BID PO 08/26/24 21:00 09/25/24 20:59 09/04/24 20:24 0.4 MG Vancomycin HCl 250 ml @ 125 mls/hr Q24H IV 08/27/24 12:00 08/29/24 07:19 DC 08/28/24 11:27 125 MLS/HR Vancomycin HCl (Vancomycin Protocol) 1 each AD IV 08/26/24 10:00 08/29/24 07:19 DC Vitamin B Complex/ Vit C/Folic Acid (Nephrovite Tablet) 1 cap DAILY PO 08/26/24 09:00 09/25/24 08:59 09/02/24 08:55 1 CAP Wound Care/ Dressing Products (Venelex Ointment) 1 APPL TID TP 08/26/24 21:00 09/25/24 20:59 09/04/24 20:25 1 GM Diagnostics / Radiology: [COPY/PASTE HERE IF NO REPORTS PLEASE DELETE SECTION] Assessment: Abnormal imaging with dilated loops of colon Plan: Flex sig with decompression in am EDWIN LAGOS [employer] TE[employer] Sep 04, 2024 21:41
[2024-09-05] VITALS (26 sets, daily range): BP systolic 106–195; BP diastolic 49–79; PULSE 70–89; RESP 16–21; TEMP 97–98.5; O2SAT 95–96
[2024-09-05] MEDS: DEXTROSE 50%-WATER 50 ML DISP.SYRIN IV PRN (05:22)
--- NOTE | 2024-09-05 05:27 | NUR ---
GLUCOSE PT'S BLOOD SUGAR=67. PT IS AA0X3 AND DENIES ANY COMPLAINTS AT THIS TIME. PT IS CURRENTLY NPO FOR GI PROCEDURE. INITIATED HYPOGLYCEMIA PROTOCOL. 1 AMPULE D50 ADMINISTERED, TOLERATED WELL. WILL RE-CHECK BLOOD SUGAR.
--- NOTE | 2024-09-05 06:51 | NUR ---
GI PT TAKEN DOWN BY GI STAFF TO GI LAB FOR PROCEDURE.
[2024-09-05] MEDS ORDERED: ketaMINE 50MG/ML SYRINGE 50 MG/ML DISP.SYRIN ONE (07:12)
[2024-09-05] MEDS ORDERED: proPOFol 10 MG/ML 20ML VIAL IV ONE ×2 (08:00→08:47)
[2024-09-05] MEDS ORDERED: LIDOCAINE PF 100MG/5ML (2%) SYRINGE 5ML ONE (08:00)
--- NOTE | 2024-09-05 08:40 | NUR ---
TURNED PATIENT TO LEFT LATERAL FOR PROCEDURE, PATIENT WITH 2 ULCERS TO BUTTOCK, DAVID STERN RN NOTIFIED.
--- NOTE | 2024-09-05 09:16 | PN ---
FOLLOWUP PROGRESS NOTE SUBJECTIVE: An 78-year-old male with a history of known cardiomyopathy. The patient presented to the hospital with acute on chronic renal dysfunction. The patient with known BPH and Griffin catheter is in place. The patient with GI bleeding, and GI workup is ongoing. The patient is being seen as a followup visit for all of the above. REVIEW OF SYSTEMS: CONSTITUTIONAL: He is feeling weak and tired. HEENT: No change in vision. No change in hearing. CARDIOVASCULAR: There is no current chest pain or palpitations. PULMONARY: There is no shortness of breath. GASTROINTESTINAL: The patient is tolerating a diet. MUSCULOSKELETAL: Complains of weakness. PHYSICAL EXAMINATION: VITAL SIGNS: Blood pressure 160/56, pulse 80s. He is afebrile. GENERAL: Chronically ill male, elderly, lying in bed on the medical floor. HEENT: Head is atraumatic. Pupils are equal, roving to light. Oropharynx is without exudate. Nares clear. NECK: There is no JVP. There is no thyromegaly, no mass. CARDIOVASCULAR: Regular. There is no S3 or S4 gallop. LUNGS: Coarse with equal thoracic movement. ABDOMEN: Soft, nondistended, and nontender. EXTREMITIES: There is no clubbing, no cyanosis. NEUROLOGICAL: He is awake. He is alert. LABORATORY DATA: Sodium 141, potassium is 4, BUN 68, creatinine is 2.6. Hemoglobin 10, hematocrit 29, white blood cell count is 9000. IMPRESSION: * Acute on chronic renal failure. * Obstructive uropathy. * Cardiomyopathy. * GI bleeding. PLAN: The patient's urine output continues to improve with the Lasix. The patient has a history of known chronic renal insufficiency. The patient's GI workup is ongoing. The patient is being seen by case management in regards to final disposition, which will be the halfway. The patient will need to be discharged with the Griffin catheter. We will follow closely. TID: [id number] RECEIPT: [id number]
--- NOTE | 2024-09-05 09:18 | PN ---
[facility] PROGRESS NOTE Date of Service: Sep 05, 2024 Time of Service: 09:16 SUBJECTIVE: 08/27 Pt seen at bedside, no acute events overnight. Pt weaned off cardene drip, started on PO medications. Will monitor throughout the day and possibly dc tomorrow if BP remains stable 08/28 Pt seen at bedside, no acute events overnight. Pt blood pressure well controlled however he has significant wheeze, rhoncous breathing and cough. Will continue with nebulizers and systemic steroid treatment. CO2 low, will order ABG and follow up. Pt mildly delirius today but responds appropriately 08/29 patient seen at bedside, no acute events overnight. He is still has prominent wheeze and rhonchus breathing. There was no evidence of pneumonia on initial workup, chest x-ray was clear and procalcitonin was in normal range. We will discontinue antibiotics at this time and continue with nebulizers and systemic steroids. As patient has been somewhat confused holding cefepime may help improve his mental status however he is also on systemic steroids which can also contribute to some delirium. Physical therapy recommending [facility] for rehab, we will consult case management for placement. Patient blood sugars have been elevated we will start glargine 10 units twice daily. Creatinine increased from 2.3 up to 2.8, patient was started on bicarbonate yesterday, we will continue to monitor his urine output. 08/30 patient seen at bedside, no acute events overnight. His wheeze has improved significantly today, he is sitting at bedside on room air now. We will continue with nebulizers and systemic steroids. He is pending placement to [facility]. 08/31 patient seen at bedside, no acute events overnight. He has no complaints at bedside, breathing appears to be improved, he continues on room air. Family recommending [facility] placement. His BUN/creatinine continue to up trend to 91 and 3.4. He has no history of heart failure, we will bolus 1 L and follow up with his renal function tomorrow. Nephrology consulted for further recommendations. 09/01 blood pressure 126/45, afebrile, saturating normal on room air. CBC shows a hemoglobin of 8.6, hematocrit 25.4, WBC of 12.3, platelet count of 252. Sodium 137, potassium 3.2, BUN of 93, creatinine of 3.3, bicarb of 20. ABG with a pH of 7.37, pCO2 24, bicarbonate of 13.8. Currently the patient on sodium bicarbonate 650 mg p.o. t.i.d.. Nephrology consultation requested, continue to follow input and recommendations. Family recommended [facility] facility, we will discuss with case management. 09/02 patient's blood pressure 162/56, afebrile, saturating normal on room air. Case discussed with the RN, patient has a large bowel movement this morning, he feels hungry. During my visit he is comfortable sitting in the chair, he feels less distended and better today compared to yesterday. Denies nausea, no vomiting, no abdominal pain. BP done yesterday was showing abnormal bowel gas pattern, ileus favored over low colon obstruction. CT of the abdomen showing mildly dilated air-filled loops of colon, no transition some findings most consistent with gastroenteritis or ileus, no transition zone to suggest obs truction, moderate bilateral renal cortical thinning, minimal bilateral pleural effusions. Surgical consultation requested, we will follow input and recommendation, we will repeat KUB, we will possibly start clear liquid diet. Patient is still with urinary retention, we will attempt to insert Griffin catheter today, if unable we will request Urology consult. Patient noted to have mild bilateral lower extremity edema, we will start Lasix 20 mg p.o. b.i.d.. 09/03 the patient remains admitted to the medical floor, case discussed with the RN, the patient back in the room, unable to lie flat for the Gastrografin enema per surgery recommendation. During my visit patient awake, following commands, not in distress. He remains hemodynamically stable. Hemoglobin 9.3, currently tolerating diet, passing gas. Patient evaluated by General surgery, abdominal distention concerning for sigmoid volvulus. Case discussed with the surgery, GI consulted for decompressive sigmoidoscopy, case discussed, plan to do tomorrow. 09/04 patient is seen and examined at bedside, back in the room, per discussion with the RN, refused flexible sigmoidoscopy. He is alert oriented x3, discussed with the patient the importance of having the procedure done, however the patient refused, he stated that he does not want any further medical management, he wants to go back to [facility] facility with the hospice services. He is a DNR/DNI. We will discuss with the daughter she is available at bedside. 09/05 patient remains admitted to the medical floor, long discussion was done yesterday with the patient in the room in front of her daughter, regarding the importance of having the flexible sigmoidoscopy done. I discussed with the patient that if he refused, and he wanted to go to the [facility] facility with hospice services I could arrange for that per records not start him on a diet until we will rule out the possibility of volvulus. After a very long discussion the the patient agreed to have the flexible sigmoidoscopy. Today blood pressure 160/64, afebrile, saturating normal on room air. Hemoglobin stable 10.1, hematocrit 29.7. During my visit the patient is back in the room from having flexible sigmoidoscopy, with the following findings: -the perianal and digital rectal examination were normal. Solid stool was found in the rectum, in the sigmoid colon, in the descending colon and in the transfer colon, interfering with a fistulization. Lavage of the area was performed, resulting in incomplete clearance with continued poor visualization. A colonic decompression tube was placed. Impression: -preparation of the colon was poor. -stool in the rectum, in the sigmoid colon, in the descending colon and in the transfer:. -no specimens collected. Recommendations: -[facility] -clear liquid diet -continue present medications -obtain KUB -give GoLYTELY 500 cc per colon tube every 4 hours -start bisacodyl 5 mg p.o. b.i.d. KUB REVIEWED, GASEOUS DISTENTION OF THE COLON, EXPECTED ON BASIS OF RECENT COLONOSCOPY, NO SIGNIFICANT ABNORMALITIES OTHERWISE. REVIEW OF SYSTEMS 12 point ROS negative unless noted in HPI PHYSICAL EXAM GENERAL APPEARANCE: The patient is awake, alert, and oriented, in no acute cardiopulmonary distress. NEUROLOGICAL: Cranial nerves II-XII grossly intact. Motor is 5/5 in bilateral upper and lower extremities proximal to distal. No sensory deficits. HEENT: Face is symmetric. Pupils are equal and reactive. Extraocular movements are intact. NECK: Supple. No JVD. No thyromegaly. No submental, submandibular, pre- /postauricular, occipital or supraclavicular lymphadenopathy. CHEST: Normal chest expansion. No Telemetry. LUNGS: no wheezing, no rhonchi, no rales CARDIOVASCULAR: Regular. S1 and S2 normal. No appreciable rubs, murmurs or gallops. ABDOMEN: Still mildly distended, bowel sounds present, mildly tympanic. : Deferred. No Griffin. EXTREMITIES: No clubbing. Good capillary refill. SKIN: No skin breakdown. Vital Signs (last 8hr) Date Time Temp Pulse Resp B/P (MAP) Pulse Ox O2 Delivery O2 Flow Rate FiO2 09/05/24 09:10 97.0 83 16 116/64 97 Room Air 2.0 24 09/05/24 09:05 97.0 84 16 118/57 98 Nasal Cannula 2.0 09/05/24 09:00 97.0 78 16 106/62 98 Nasal Cannula 3.0 09/05/24 06:22 85 17 09/05/24 06:22 18 N/A Room Air 21 09/05/24 04:20 98.4 85 19 160/56 94 Room Air 09/05/24 01:20 79 17 LABS: Laboratory: Test 09/05/24 06:19 09/04/24 06:00 Range/Units Whole Blood Glucose 125 #H 70-110 MG/DL White Blood Count 9.2 4.8-10.8 K/uL Red Blood Count 3.28 L 4.50-6.20 MIL/uL Hemoglobin 10.1 L 14.0-18.0 g/dL Hematocrit 29.7 L 42-54 % Mean Corpuscular Volume 90.5 79-99 fL Mean Corpuscular Hemoglobin 30.8 27.0-33.0 pg Mean Corpuscular Hemoglobin Concent 34.0 32.0-36.0 g/dL Red Cell Distribution Width 14.3 11.0-15.5 % Platelet Count 260 130-400 K/uL Mean Platelet Volume 9.6 7.5-10.5 fL Nucleated Red Blood Cells 0.0 0.0-0.19 % Sodium Level 141 136-145 mmol/L Potassium Level 3.8 3.5-5.1 mmol/L Chloride Level 107 101-111 mmol/L Carbon Dioxide Level 22 21-32 mmol/L Blood Urea Nitrogen 58 H 7-18 mg/dL Creatinine 2.6 H 0.5-1.3 mg/dL Glomerular Filtration Rate Calc 24 >90 mL/min Random Glucose 75 70-105 mg/dL Total Calcium 8.5 8.5-10.1 mg/dL Magnesium Level 2.20 1.80-2.40 mg/dL Total Bilirubin 0.5 0.2-1.0 mg/dL Aspartate Amino Transf (AST/SGOT) 25 10-37 U/L Alanine Aminotransferase (ALT/SGPT) 38 12-78 U/L Alkaline Phosphatase 49 L 50-136 U/L Total Protein 6.2 6.0-8.3 g/dL Albumin 2.7 L 3.5-5.0 g/dL Current Medications Medications (Trade) Dose Ordered Sig/Abhijit Route PRN Reason Start Time Stop Time Status Last Admin Dose Admin Acetaminophen (TYLenol 325MG TAB) 650 mg Q4H PRN PO MILD PAIN (1-3) 08/26/24 02:00 09/25/24 01:59 09/03/24 19:30 650 MG Acetaminophen (TYLenol 325MG TAB) 650 mg Q6H PRN PO TEMPERATURE GREATER THAN 101.5 08/26/24 02:00 09/25/24 01:59 Acetylcysteine (MUComyst 10% 4ML) 400mg = 4ml [id number] IH 09/03/24 00:00 10/03/24 00:00 09/05/24 06:28 400 MG Albuterol (DUOneb) 1 udvial [id number] IH 08/26/24 02:00 09/25/24 01:59 09/05/24 06:28 1 UDVIAL Amlodipine Besylate (NorvASC 5MG TAB) 5 mg DAILY PO 08/27/24 09:00 08/27/24 07:12 DC Apixaban (EliquIS 2.5 mg) 2.5 mg BID PO 09/02/24 21:00 09/03/24 14:24 DC 09/02/24 21:38 2.5 MG Apixaban (EliquIS) 5 mg BID PO 09/01/24 21:00 09/02/24 16:46 DC 09/02/24 08:56 5 MG Apixaban (EliquIS) 5 mg BID PO 09/03/24 21:00 09/03/24 14:19 DC Budesonide (Pulmicort 0.5 Mg/2ml) 0.5 mg BIDRESP IH 08/26/24 18:00 09/25/24 17:59 09/05/24 06:28 0.5 MG Cefepime HCl (MAXipime 2 gm vial) 2 gm Q12H IVPB 08/26/24 10:00 08/29/24 07:19 DC 08/28/24 23:16 2 GM Ceftriaxone Sodium 1 gm/ Sodium Chloride 50 ml @ 100 mls/hr BID IV 08/26/24 09:00 08/26/24 01:51 DC Ceftriaxone Sodium (ROCEphine 1G INJ) 1 gm BID IVPB 08/26/24 09:00 08/26/24 09:43 DC 08/26/24 09:15 1 GM Dextrose (D50w) 50 ml AD PRN IV HYPOGLYCEMIA PROTOCOL 08/26/24 02:00 09/25/24 01:59 09/05/24 05:22 50 ML Epoetin Eros-epbx (Retacrit) 10,000 unit QTU@1600 SQ 09/02/24 16:00 10/02/24 15:59 09/02/24 16:38 10,000 UNIT Furosemide (LASix 20MG TAB) 20 mg BID PO 09/02/24 21:00 09/02/24 17:14 DC Furosemide (LASix 20MG TAB) 20 mg BID@09,17 PO 09/03/24 17:00 10/03/24 16:59 09/03/24 17:05 20 MG Glucagon (Glucagon 1mg Kit) 1 mg AD PRN IM HYPOGLYCEMIA PROTOCOL 08/26/24 02:00 09/25/24 01:59 Guaifenesin/ Dextromethorphan (RobiTUSSin DM 200/20MG 10ML) 10 ml Q6H PRN PO COUGH 08/31/24 10:30 09/30/24 10:29 Heparin Sodium (Porcine) (HEParin 5,000 UNIT VIAL) 5,000 unit Q12H SQ 08/26/24 21:30 09/01/24 09:57 DC 09/01/24 09:03 5,000 UNIT Hydralazine HCl (APRESOLine 20MG INJ) 10 mg Q6H PRN IV For:SBP above 160;DBP above 90 08/26/24 02:00 09/25/24 01:59 08/27/24 04:00 10 MG Hydralazine HCl ([id number] TAB) 25 mg TID PO 08/26/24 09:00 08/27/24 07:12 DC 08/26/24 21:08 25 MG Hydralazine HCl ([id number] TAB) 50 mg TID PO 08/28/24 09:00 08/28/24 11:31 DC Hydralazine HCl ([id number] TAB) 50 mg TID PO 08/28/24 14:00 09/27/24 13:59 09/04/24 20:24 50 MG Hydralazine HCl ([id number] TAB) 100 mg TID PO 08/27/24 09:00 08/28/24 07:38 DC 08/27/24 09:22 100 MG Hydrochlorothiazide (hydroCHLOROthiazide 25MG) 25 mg DAILY PO 08/29/24 09:00 08/28/24 12:07 DC Insulin Glargine (LANtus 100 UNITS/ML 10 ML VIAL) 10 units BID@0730,2100 SQ 08/29/24 07:30 09/28/24 07:29 09/02/24 21:39 10 UNITS Insulin Human Regular (humuLIN R 100 UNIT/ML 3ML) INSULIN SLIDING SCAL... ACHS SQ 08/26/24 07:30 09/25/24 07:29 08/31/24 21:49 3 UNIT Labetalol HCl (TRANdate 20MG SYG) 10 mg Q6H PRN IV IF SBP GREATER THAN 170 08/26/24 02:00 09/25/24 01:59 08/27/24 05:41 10 MG Lactulose (Constulose 20gm/ 30ml Udcup) 20 gm BID PRN PO CONSTIPATION 08/31/24 13:00 09/30/24 12:59 09/01/24 20:04 20 GM Losartan Potassium (CozAAR 50 mg TAB) 50 mg BID PO 08/27/24 09:00 08/31/24 10:00 DC 08/31/24 09:46 50 MG Magnesium Sulfate 50 ml @ 0 mls/hr PROTOCOL PRN IV OTHER [SEE ORDER COMMENTS] 08/26/24 02:00 09/25/24 01:59 08/26/24 17:15 50 MLS/HR Melatonin (Melatonin) 5 mg HSPRN PRN PO INSOMNIA 09/01/24 23:00 10/01/24 22:59 09/03/24 20:06 5 MG Methylprednisolone Sodium Succinate (Solu-medROL 40MG) 20 mg Q8H IVP 08/29/24 06:00 6/1/25 12:05 DC 08/31/24 06:33 20 MG Methylprednisolone Sodium Succinate (Solu-medROL 40MG) 40 mg BID IVP 08/27/24 21:00 08/28/24 20:59 DC 08/28/24 09:24 40 MG Metoprolol Tartrate (loprESSOR) 100 mg BID PO 08/26/24 09:00 09/25/24 08:59 09/04/24 20:23 100 MG Montelukast Sodium (SinguLAIR) 10 mg DAILY PO 08/27/24 09:00 09/26/24 08:59 09/02/24 08:55 10 MG Morphine Sulfate (morPHINE 2MG SYG) 2 mg Q4H PRN IV MODERATE PAIN (4-6) 08/26/24 02:00 08/31/24 04:59 DC 08/26/24 06:37 2 MG Nicardipine HCl 20 mg/Sodium Chloride 200 ml @ 0 mls/hr AD PRN IV TITRATE 08/26/24 03:00 08/26/24 02:45 DC Nicardipine HCl 25 mg/Sodium Chloride 250 ml @ 0 mls/hr AD PRN IV TITRATE 08/26/24 03:00 08/27/24 18:03 DC 08/27/24 06:46 50 MLS/HR Nifedipine (adALAT 30MG) 30 mg BID PO 08/28/24 09:00 09/27/24 08:59 09/04/24 20:23 30 MG Nifedipine (adALAT 30MG) 60 mg BID PO 08/27/24 09:00 08/28/24 07:38 DC 08/27/24 07:42 60 MG Ondansetron HCl (zoFRAN 4MG INJ) 4 mg Q6H PRN IV NAUSEA/VOMITING 08/26/24 02:00 09/25/24 01:59 Pantoprazole Sodium (PROTonix 40MG INJ) 40 mg DAILY IVP 08/27/24 09:00 09/26/24 08:59 09/04/24 09:01 40 MG Potassium Chloride 100 ml @ 100 mls/hr AD PRN IV POTASSIUM PROTOCOL 08/26/24 02:00 09/25/24 01:59 Potassium Chloride (K-Dur 10meq Sr Tab) 10 meq AD PRN PO POTASSIUM PROTOCOL 08/26/24 18:00 09/25/24 01:59 08/31/24 17:18 10 MEQ Potassium Chloride (K-Dur/Klor-Con 20meq) 10 meq AD PRN PO POTASSIUM PROTOCOL 08/26/24 02:00 08/26/24 17:48 DC Potassium Chloride (KCl 10% Elixir 20meq/15ml) 10 meq AD PRN PO POTASSIUM PROTOCOL 08/26/24 02:00 09/25/24 01:59 Sodium Bicarbonate (Sodium Bicarbonate) 650 mg TID PO 08/28/24 14:00 09/03/24 09:15 DC 09/02/24 21:37 650 MG Sodium Chloride 1,000 ml @ 50 mls/hr Q20H IV 08/26/24 21:00 08/27/24 13:59 DC 08/26/24 21:08 50 MLS/HR Tamsulosin HCl (FloMAX) 0.4 mg BID PO 08/26/24 21:00 09/25/24 20:59 09/04/24 20:24 0.4 MG Vancomycin HCl 250 ml @ 125 mls/hr Q24H IV 08/27/24 12:00 08/29/24 07:19 DC 08/28/24 11:27 125 MLS/HR Vancomycin HCl (Vancomycin Protocol) 1 each AD IV 08/26/24 10:00 08/29/24 07:19 DC Vitamin B Complex/ Vit C/Folic Acid (Nephrovite Tablet) 1 cap DAILY PO 08/26/24 09:00 09/25/24 08:59 09/02/24 08:55 1 CAP Wound Care/ Dressing Products (Venelex Ointment) 1 APPL TID TP 08/26/24 21:00 09/25/24 20:59 09/04/24 20:25 1 GM DIAGNOSTICS / RADIOLOGY: [ ] ASSESSMENT: Sepsis POA Possible pyelonephritis POA Acute kidney injury POA Kidney stone POA Hypertensive urgency POA Acute normocytic normochromic anemia POA Acute leukocytosis POA CHF POA Debility POA Diabetes POA Hyponatremia POA Dehydration POA Hyperlipidemia POA 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 I discussed with the pat [place] that if he refused, and he wanted to go to the [facility] facility with hospice services I could arrange for that per records not start him on a diet until we will rule out the possibility of volvulus. After a very long discussion the the patient agreed to have the flexible sigmoidoscopy. Today blood pressure 160/64, afebrile, saturating normal on room air. Hemoglobin stable 10.1, hematocrit 29.7. During my visit the patient is back in the room from having flexible sigmoidoscopy, with the following findings: -the perianal and digital rectal examination were normal. Solid stool was found in the rectum, in the sigmoid colon, in the descending colon and in the transfer colon, interfering with a fistulization. Lavage of the area was performed, r esulting in incomplete clearance with continued poor visualization. A colonic decompression tube was placed. Impression: -preparation of the colon was poor. -stool in the rectum, in the sigmoid colon, in the descending colon and in the transfer:. -no specimens collected. Recommendations: -[facility] -clear liquid diet -continue present medications -obtain KUB -give GoLYTELY 500 cc per colon tube every 4 hours -start bisacodyl 5 mg p.o. b.i.d. KUB REVIEWED, GASEOUS DISTENTION OF THE COLON, EXPECTED ON BASIS OF RECENT COLONOSCOPY, NO SIGNIFICANT ABNORMALITIES OTHERWISE. NEURO: Minimize central acting medications as possible. Fall Precautions. Well lighted room through the day and minimize interruptions through the night to prevent acute delirium. PULMONARY: Supplemental 02 as needed BiPAP as necessary, for respiratory distress Titrate Fio2 to keep Spo2 > or = 90% DuoNebs and CPT as needed IS hourly while awake for pulmonary hygiene prn Out of bed to chair as tolerated Maintain aspiration precautions at all times CARDIOVASCULAR: Follow hemodynamics. Vital signs per facility protocol GI & NUTRITION: Continue nutritional support Aspirations precautions Prokinetic agents and laxatives as needed KIDNEYS & ELECTROLYTES: Strict monitoring of intake and output Daily weights Avoid nephrotoxic agents Monitor electrolytes and replace as needed Goal urine output of 30mL/hr or 0.5mL/kg/hr Medications to be dosed according to renal function. Avoid contrast if possible ENDOCRINE: Maintain blood glucose between 100-180 at all times. Insulin sliding scale for blood glucose management Hypoglycemia and hyperglycemia protocol in place INFECTIOUS DISEASE: Trend temperature, WBC and procalcitonin level Follow cultures, deescalate antibiotics as soon as possible. Panculture if new onset fever HEMATOLOGY & COAGULATION: Monitor H&H. Keep Hgb > 7 Transfuse 1 unit of PRBC for Hgb < 7 Transfuse 1 pack of platelets of platelets < 20, 000 Watch for any signs and symptoms of bleeding SKIN: Pressure ulcer prevention per facility protocol Specialty mattress as needed ORTHO/REHAB Continue PT/OT PRN: MEDICATIONS Tylenol 650 mg po every 4 hrs for fever zofran 4 mg IV every 6 hrs for n/v Hydralazine 5 mg IV every 4 hrs systolic pressure > 160 bowel regiment: lactulose 20 gm PO BID PRN constipation Supportive measures: Continue GI and DVT prophylaxis Disposition: Pending improvement in clinical condition All questions answered time spent: > 35 min BRIANNA MENDEZ MD Sep 05, 2024 09:18
[2024-09-05] MEDS: IpraTROPium/alBUTERol SULFATE 3 ML SOLUTION IH SCH (11:07)
--- NOTE | 2024-09-05 11:07 | HMCIMG ---
Exam Type: ABD 1VW Clinical Information: S/P COLONOSCOPY Comparison: None Findings and impression: Gaseous distention of the colon, expected on basis of recent colonoscopy. No significant abnormalities otherwise.
[2024-09-05] MEDS: IpraTROPium/alBUTERol SULFATE 3 ML SOLUTION IH ONE (11:10)
[2024-09-05] MEDS: furoSEMIDE 20MG VIAL IV SCH (12:18)
[2024-09-05] MEDS: PEG 3350/NA SULF,BICARB,CL/KCL 4000 ML SOLN PO ONE (13:52)
[2024-09-05] MEDS: PEG 3350/NA SULF,BICARB,CL/KCL 4000 ML SOLN PO SCH (13:52)
[2024-09-05] MEDS: furoSEMIDE 40MG VIAL IV ONE (17:02)
[2024-09-05] MEDS: BisaCODYL 5 MG TABLET.DR PO SCH (20:20)
[2024-09-05] MEDS: APIXaban 2.5 MG TABLET PO SCH (20:20)
--- NOTE | 2024-09-05 20:20 | NUR ---
MEDS SHIFT ASSESSMENT DONE, PLEASE REFER TO CHART. DUE MEDS ADMINISTERED, TOLERATED WELL. GOLYTELY 500CC ADMINISTERED TO COLON TUBE. KEPT RESTED AND COMFORTABLE IN BED WITH HOB ELEVATED. CALL LIGHT WITHIN REACH. INSTRUCTED PT TO CALL WHEN HE IS IN NEED OF CHANGING.
[2024-09-05] MEDS: NYSTatin 15 GM POWDER TP SCH (20:21)
--- NOTE | 2024-09-05 20:44 | PN ---
[facility] PROGRESS NOTE Date Patient Seen: Sep 05, 2024 Time of Visit: 13:40 Supervising Physician: [DR KATHIE HORTA Primary Care Physician: [Dr. Freida Izaguirre] Outpatient Specialists: [ ] Inpatient Consults: DAVE PROBLEM LIST: ANASARCA Sepsis secondary to pyelonephritis, improved Acute kidney injury on top of chronic kidney disease, prerenal, decompensated Metabolic acidosis with incomplete respiratory compensation Acute delirium, not POA, mild Hypertensive urgency, resolved Non-obstructive R-renal pelvic calculus, 7mm per CT abdomen, no calculi per renal U/S CAD s/p remote CABG Chronic A-fib on eliquis outpatient PPM/AICD status Sacral ulcer Plan: Lasix 60mg IV single dose. repeat CMP in am Continue with nebulizer treatments monitor for hematuria monitor kidney function Continue oral antihypertensives, monitor BP INTERVAL HISTORY: [Patient is evaluated at bedside. He has weaned off Cardene drip since this a.m., has initiated antihypertensive medication by mouth with improvement in blood pressure. He appears edematous to bilateral lower extremities. Admits some nausea but no vomiting, is tolerating clear diet well. He has mild end expiratory wheezing but is saturating well on room air. WBC improved to 11 today, creatinine remains elevated but is improved to 1.9 today. His renal ultrasound is consistent with renal parenchymal disease. FENA labs suggest prerenal KEVIN. His blood and urine cultures remained negative. Patient okay to downgrade to Med/surg.] 08/28 patient is evaluated at bedside. His white count is downtrending, continues on IV antibiotics. No fever noted overnight. Blood and urine cultures are negative. He was given a dose of Lasix yesterday, and initiated on oral antihypertensive with improvement of blood pressure. His blood pressure was soft this morning with some BP meds held for the same. Renal ultrasound shows no calculi. Per nurse, patient appeared somewhat confused and combative this morning but has since improved. Daughter at bedside states patient normally at this way whenever he is admitted into the hospital. Ammonia lab drawn was within normal limits. ABG was requested which revealed mild metabolic acidosis with incomplete respiratory compensation. 08/29 Patient is evaluated at bedside. He continues with end-expiratory wheezing bilaterally. He denies a hx of COPD or smoking. Has never seen a assignment officer outpatient. His antibiotics were discontinued. Blood and urine cultures remain negative. Echocardiogram is within normal limits with EF of 50-55%. 08/30 patient is evaluated at bedside. He continues with shortness of breath, even at rest. His creatinine has significantly evaluated to 3.0 today, he is currently receiving IV fluids. Repeat ABG shows mild metabolic acidosis with incomplete respiratory compensation but is improved from previous. Per nursing staff, patient was unable to tolerate 6 minute walk yesterday due to shortness of breaths, however was saturating well. His antibiotics have been discontinued, CBC is unremarkable. Repeat CXR today is unremarkable. He continues with mild end-expiratory wheezing bilaterally. 08/31 patient is evaluated at bedside. He was weaned off supplemental oxygen now on room air. His wheezing is improved. Blood pressure is within normal limits. He has 350 mL of documented urine output in last 24 hours. His creatinine is worsened to 3.4 today. Blood and urine cultures remained negative. 09/01 patient is evaluated at bedside. He continues on room air. Blood pressure is within normal limits. His respiratory status improved but continues with mild end-expiratory wheezing which seems chronic. Repeat ABG is improved. CBC is grossly unremarkable. Creatinine remains persistently elevated, nephrology is following. Patient is stable for discharge from pulmonary standpoint. His KEVIN is being addressed by primary and nephrology prior to discharge. 09/02 Patient is seen and examined at the bedside, patient with KEVIN he is off lasix, patient with SOB on admission which has improved , plan is to repeat ABG's Eliquis dose has been decreased CBC remains unremarkable plan is to repeat labs in am, continue monitoring kidney function. 09/03 Patient is awake, alert, well oriented , accompanied by friends, denies fever, chills, nausea or vomiting, linn cath in place no hematuria no signs of bleeding reported, creatinine has improved , we will continue monitoring closely, discharge plan per pcp 09/04 Patient is awake, alert, well oriented, no fever, no chills, no headaches or dizziness noted with Anasarca therefore plan is to give an extra dose of Lasix 80 mg IV we will continue monitoring closely , Plan is to Stop Epogen due to high risk of thrmbosis patient is not a dialysis patient , antibiotics stopped already. chest x ray reviewed, LLL infiltrates has resolved, blood culture negative, urine culture negative. 09/05 patient is awake, alert, with persistent anasarca, plan is Lasix 60 mg IV x 1 repeat CMP in am , continue with Cpap at night, continue monitoring closely. REVIEW OF SYSTEMS: 12 point ROS reviewed with patient. Pertinent positives mentioned above. Otherwise negative. PHYSICAL EXAM: GENERAL: alert, weak, awake oriented x 3, no acute distress HEENT: EOMI, Sclera non icteric, moist mucosa NECK: Supple, no JVD, trachea midline LUNGS: Clear breath sounds bilaterally. minimal expiratory wheezing HEART: Regular rate and rhythm. Normal S1 and S2, without murmurs ABD: Abdomen discomfort with palpation. Bowel sounds present, CVA tenderness bilaterally EXT: No clubbing cyanosis or edema NEURO: Alert and oriented to person, follows commands Vital Signs (last 8hr) Date Time Temp Pulse Resp B/P (MAP) Pulse Ox O2 Delivery O2 Flow Rate FiO2 09/05/24 15:35 78 21 163/62 97 Room Air 21 09/05/24 14:35 82 20 179/77 96 Room Air 21 09/05/24 13:35 70 20 168/74 99 Room Air 21 LABS: Hematology Labs: Test 09/04/24 06:00 Range/Units White Blood Count 9.2 4.8-10.8 K/uL Red Blood Count 3.28 L 4.50-6.20 MIL/uL Hemoglobin 10.1 L 14.0-18.0 g/dL Hematocrit 29.7 L 42-54 % Mean Corpuscular Volume 90.5 79-99 fL Mean Corpuscular Hemoglobin 30.8 27.0-33.0 pg Mean Corpuscular Hemoglobin Concent 34.0 32.0-36.0 g/dL Red Cell Distribution Width 14.3 11.0-15.5 % Platelet Count 260 130-400 K/uL Mean Platelet Volume 9.6 7.5-10.5 fL Nucleated Red Blood Cells 0.0 0.0-0.19 % Chemistry Labs: Test 09/05/24 19:44 09/05/24 15:43 09/04/24 06:00 Range/Units Whole Blood Glucose 150 H 70-110 MG/DL Bedside Glucose Comment Notified Nurse Sodium Level 141 136-145 mmol/L Potassium Level 3.8 3.5-5.1 mmol/L Chloride Level 107 101-111 mmol/L Carbon Dioxide Level 22 21-32 mmol/L Blood Urea Nitrogen 58 H 7-18 mg/dL Creatinine 2.6 H 0.5-1.3 mg/dL Glomerular Filtration Rate Calc 24 >90 mL/min Random Glucose 75 70-105 mg/dL Total Calcium 8.5 8.5-10.1 mg/dL Magnesium Level 2.20 1.80-2.40 mg/dL Total Bilirubin 0.5 0.2-1.0 mg/dL Aspartate Amino Transf (AST/SGOT) 25 10-37 U/L Alanine Aminotransferase (ALT/SGPT) 38 12-78 U/L Alkaline Phosphatase 49 L 50-136 U/L Total Protein 6.2 6.0-8.3 g/dL Albumin 2.7 L 3.5-5.0 g/dL DIAGNOSTICS / RADIOLOGY RESULTS: [ ] PLAN Lasix 60 mg IV x 1 Cpap at night Stop Epogen due to high risk of thrombosis Antibiotic stopped NEURO: Minimize central acting medications as possible. Maintain fall precautions, adequate lighting during the day PULMONARY: Supplemental 02 as needed. Maintain aspiration precautions at all times CARDIOVASCULAR: Follow hemodynamics. Vital signs per facility protocol GI & NUTRITION: Continue with nutritional support. Continue stool softeners and laxatives as needed. KIDNEYS & ELECTROLYTES: Strict monitoring of intake, output and overall fluid balance. Avoid nephrotoxic medications to the extent possible. Medications to be dosed according to renal function. Monitor electrolytes and replace as needed ENDOCRINE: Maintain blood glucose between 100-180 at all times. Hypoglycemia protocol in place INFECTIOUS DISEASE: Trend temperature, WBC and procalcitonin level Follow cultures, deescalate antibiotics as soon as possible. Panculture if new onset fever ONCOLOGY/HEMATOLOGY/COAGULATION: Monitor for s/s of bleeding Monitor hemoglobin, coagulation studies as needed SKIN: Pressure ulcer prevention per facility protocol Specialty mattress ORTHO/REHAB: Continue PT/OT Prophylaxis: Continue GI and DVT prophylaxis Code Status: Full Resuscitation Disposition: TBD Other: Time spent on patient care exceeds 45 minutes. This does not include any time spent on procedures. ATTESTATION BY PHYSICIAN Documentation assistance provided by a scribe, information recorded by the scribe was done at my direction and has been reviewed and validated by me." KATHIE HORTA MD I personally scribed for KATHIE HORTA MD ([email or web address]) on 09/05/24 at 20:44. Electronically submitted by Gema Boone ([id number]). KATHIE HORTA MD Sep 05, 2024 20:44
[2024-09-06] VITALS (10 sets, daily range): BP systolic 138–164; BP diastolic 34–62; PULSE 61–78; RESP 18–20; TEMP 98–98.5; O2SAT 95–98
--- NOTE | 2024-09-06 01:15 | NUR ---
PIV DISCONTINUED BOTH PIV ON RT ARM WITH CATHETER INTACT. RE-INSERTED G20 TO LEFT WRIST, TOLERATED WELL. RE-POSITIONED PT IN BED. ENCOURAGED TO GO BACK TO SLEEP. CALL LIGHT WITHIN REACH.
[2024-09-06 04:05] LABS: HEMATOCRIT 28.8 % (42-54); MEAN CORPUSCULAR HEMOGLOBIN 30.3 pg (27.0-33.0); MEAN CORPUSCULAR VOLUME 91.7 fL (79-99); RED BLOOD CELL COUNT(AUTO) 3.14 MIL/uL (4.50-6.20); RED CELL DISTRIBUTION WIDTH 14.3 % (11.0-15.5); WHITE BLOOD COUNT (AUTO) 9.2 K/uL (4.8-10.8)
[2024-09-06 04:28] LABS: ALBUMIN 2.7 g/dL (3.5-5.0); BILIRUBIN,TOTAL 0.5 mg/dL (0.2-1.0); CREATININE 2.4 mg/dL (0.5-1.3); MAGNESIUM 1.7 mg/dL (1.80-2.40); POTASSIUM 3.3 mmol/L (3.5-5.1); TOTAL PROTEIN, SERUM 6.2 g/dL (6.0-8.3)
[2024-09-06] MEDS: PoTASSium chl 10% ELIXIR 20MEQ 20 MEQ/15 ML UDCUP PO PRN (06:05)
--- NOTE | 2024-09-06 06:05 | NUR ---
REPLACE RE-POSITIONED COMFORTABLY IN BED. DUE MEDS ADMINISTERED, TOLERATED WELL. CALL LIGHT WITHIN REACH. FOR MORE CARE.
--- NOTE | 2024-09-06 09:24 | HMCIMG ---
INDICATION: resp failure TECHNIQUE: CHEST 1VW COMPARISON: 09/03/2024 FINDINGS AND IMPRESSION: Prominent bilateral interstitial markings which may represent bronchitis or vascular congestion in the proper clinical setting. Cardiomegaly is seen with left-sided pacemaker. Mild degenerative changes of the spine. The visualized upper abdomen appears unremarkable.
[2024-09-06] MEDS: PoTASSium chloRIDE 20MEQ ER 20 MEQ ERTAB PO ONE (09:45)
--- NOTE | 2024-09-06 11:44 | PN ---
[facility] PROGRESS NOTE Date Patient Seen: Sep 06, 2024 Time of Visit: 11:38 Supervising Physician: [Dr Lambert Primary Care Physician: [Dr. Freida Izaguirre] Outpatient Specialists: [ ] Inpatient Consults: DAVE PROBLEM LIST: ANASARCA Sepsis secondary to pyelonephritis, resolved Acute kidney injury on top of chronic kidney disease, prerenal, decompensated Metabolic acidosis with incomplete respiratory compensation resolved Acute delirium, not POA, mild resolved Hypertensive urgency, resolved Non-obstructive R-renal pelvic calculus, 7mm per CT abdomen, no calculi per renal U/S CAD s/p remote CABG Chronic A-fib on eliquis outpatient PPM/AICD status Sacral ulcer Plan Summary: Supplemental oxygen as needed Patient remains on room air. Duo nebs as needed Monitor renal function closely INTERVAL HISTORY: [Patient is evaluated at bedside. He has weaned off Cardene drip since this a.m., has initiated antihypertensive medication by mouth with improvement in blood pressure. He appears edematous to bilateral lower extremities. Admits some nausea but no vomiting, is tolerating clear diet well. He has mild end expiratory wheezing but is saturating well on room air. WBC improved to 11 today, creatinine remains elevated but is improved to 1.9 today. His renal ultrasound is consistent with renal parenchymal disease. FENA labs suggest prerenal KEVIN. His blood and urine cultures remained negative. Patient okay to downgrade to Med/surg.] 08/28 patient is evaluated at bedside. His white count is downtrending, continues on IV antibiotics. No fever noted overnight. Blood and urine cultures are negative. He was given a dose of Lasix yesterday, and initiated on oral antihypertensive with improvement of blood pressure. His blood pressure was soft this morning with some BP meds held for the same. Renal ultrasound shows no calculi. Per nurse, patient appeared somewhat confused and combative this morning but has since improved. Daughter at bedside states patient normally at this way whenever he is admitted into the hospital. Ammonia lab drawn was within normal limits. ABG was requested which revealed mild metabolic acidosis with incomplete respiratory compensation. 08/29 Patient is evaluated at bedside. He continues with end-expiratory wheezing bilaterally. He denies a hx of COPD or smoking. Has never seen a dietitian helper outpatient. His antibiotics were discontinued. Blood and urine cultures remain negative. Echocardiogram is within normal limits with EF of 50-55%. 08/30 patient is evaluated at bedside. He continues with shortness of breath, even at rest. His creatinine has significantly evaluated to 3.0 today, he is currently receiving IV fluids. Repeat ABG shows mild metabolic acidosis with incomplete respiratory compensation but is improved from previous. Per nursing staff, patient was unable to tolerate 6 minute walk yesterday due to shortness of breaths, however was saturating well. His antibiotics have been discontinued, CBC is unremarkable. Repeat CXR today is unremarkable. He continues with mild end-expiratory wheezing bilaterally. 08/31 patient is evaluated at bedside. He was weaned off supplemental oxygen now on room air. His wheezing is improved. Blood pressure is within normal limits. He has 350 mL of documented urine output in last 24 hours. His creatinine is worsened to 3.4 today. Blood and urine cultures remained negative. 09/01 patient is evaluated at bedside. He continues on room air. Blood pressure is within normal limits. His respiratory status improved but continues with mild end-expiratory wheezing which seems chronic. Repeat ABG is improved. CBC is grossly unremarkable. Creatinine remains persistently elevated, nephrology is following. Patient is stable for discharge from pulmonary standpoint. His KEVIN is being addressed by primary and nephrology prior to discharge. 09/02 Patient is seen and examined at the bedside, patient with KEVIN he is off lasix, patient with SOB on admission which has improved , plan is to repeat ABG's Eliquis dose has been decreased CBC remains unremarkable plan is to repeat labs in am, continue monitoring kidney function. 09/03 Patient is awake, alert, well oriented , accompanied by friends, denies fever, chills, nausea or vomiting, linn cath in place no hematuria no signs of bleeding reported, creatinine has improved , we will continue monitoring closely, discharge plan per pcp 09/04 Patient is awake, alert, well oriented, no fever, no chills, no headaches or dizziness noted with Anasarca therefore plan is to give an extra dose of Lasix 80 mg IV we will continue monitoring closely , Plan is to Stop Epogen due to high risk of thrmbosis patient is not a dialysis patient , antibiotics stopped already. chest x ray reviewed, LLL infiltrates has resolved, blood culture negative, urine culture negative. 09/05 patient is awake, alert, with persistent anasarca, plan is Lasix 60 mg IV x 1 repeat CMP in am , continue with Cpap at night, continue monitoring closely. 09/06 - patient is seen sitting up in bed with no signs of acute distress. Patient is awake alert and oriented x3. Patient continues persistent anasarca. Patient remains on room air with no signs of respiratory distress. Patient continues CPAP at night. No acute changes reported overnight. From a Pulmonary standpoint, patient is stable. We will sign off at this time. Thank you for allowing us to participate in the care of this patient. Please reconsult if pulmonary issues arise. REVIEW OF SYSTEMS: 12 point ROS reviewed with patient. Pertinent positives mentioned above. Oth erwise negative. PHYSICAL EXAM: GENERAL: alert, weak, awake oriented x 3, no acute distress HEENT: EOMI, Sclera non icteric, moist mucosa NECK: Supple, no JVD, trachea midline LUNGS: Clear breath sounds bilaterally. minimal expiratory wheezing HEART: Regular rate and rhythm. Normal S1 and S2, without murmurs ABD: Abdomen discomfort with palpation. Bowel sounds present, CVA tenderness bilaterally EXT: No clubbing cyanosis or edema NEURO: Alert and oriented to person, follows commands Vital Signs (last 8hr) Date Time Temp Pulse Resp B/P (MAP) Pulse Ox O2 Delivery O2 Flow Rate FiO2 09/06/24 08:00 98.4 71 20 158/61 95 Room Air 21 09/06/24 07:30 72 18 N/A Room Air 21 09/06/24 04:43 98.2 72 19 164/62 96 Room Air LABS: Hematology Labs: Test 09/06/24 03:44 Range/Units White Blood Count 9.2 4.8-10.8 K/uL Red Blood Count 3.14 L 4.50-6.20 MIL/uL Hemoglobin 9.5 L 14.0-18.0 g/dL Hematocrit 28.8 L 42-54 % Mean Corpuscular Volume 91.7 79-99 fL Mean Corpuscular Hemoglobin 30.3 27.0-33.0 pg Mean Corpuscular Hemoglobin Concent 33.0 32.0-36.0 g/dL Red Cell Distribution Width 14.3 11.0-15.5 % Platelet Count 237 130-400 K/uL Mean Platelet Volume 9.8 7.5-10.5 fL Nucleated Red Blood Cells 0.0 0.0-0.19 % Chemistry Labs: Test 09/06/24 05:28 09/06/24 03:44 09/05/24 15:43 Range/Units Whole Blood Glucose 88 70-110 MG/DL Sodium Level 140 136-145 mmol/L Potassium Level 3.3 L 3.5-5.1 mmol/L Chloride Level 104 101-111 mmol/L Carbon Dioxide Level 24 21-32 mmol/L Blood Urea Nitrogen 48 H 7-18 mg/dL Creatinine 2.4 H 0.5-1.3 mg/dL Glomerular Filtration Rate Calc 27 >90 mL/min Random Glucose 90 70-105 mg/dL Total Calcium 8.6 8.5-10.1 mg/dL Magnesium Level 1.70 L 1.80-2.40 mg/dL Total Bilirubin 0.5 0.2-1.0 mg/dL Aspartate Amino Transf (AST/SGOT) 24 10-37 U/L Alanine Aminotransferase (ALT/SGPT) 37 12-78 U/L Alkaline Phosphatase 50 50-136 U/L Total Protein 6.2 6.0-8.3 g/dL Albumin 2.7 L 3.5-5.0 g/dL Bedside Glucose Comment Notified Nurse DIAGNOSTICS / RADIOLOGY RESULTS: PATIENT: JEANINE VILLALTA MR#: [id number] : 1945 SEX: M AGE: 78 LOCATION: [facility] ORDER 2 STATUS: ADM IN REPORT#: [id number] SERVICE 2 REASON: resp failure ORDERING PHYSICIAN: TRACY CELAYA NP PROCEDURE: CXR1VW - CHEST 1VW INDICATION: resp failure TECHNIQUE: CHEST 1VW COMPARISON: 09/03/2024 FINDINGS AND IMPRESSION: Prominent bilateral interstitial markings which may represent bronchitis or vascular congestion in the proper clinical setting. Cardiomegaly is seen with left-sided pacemaker. Mild degenerative changes of the spine. The visualized upper abdomen appears unremarkable. DICTATED BY: JUSTEN RUELAS MD DATE: 09/06/24921 ELECTRONICALLY SIGNED BY: JUSTEN RUELAS MD DATE: 09/06/24923 PLAN NEURO: Minimize central acting medications as possible. Maintain fall precautions, adequate lighting during the day PULMONARY: Supplemental 02 as needed. Maintain aspiration precautions at all times From a Pulmonary standpoint, patient is stable. CARDIOVASCULAR: Follow hemodynamics. Vital signs per facility protocol GI & NUTRITION: Continue with nutritional support. Continue stool softeners and laxatives as needed. KIDNEYS & ELECTROLYTES: Strict monitoring of intake, output and overall fluid balance. Avoid nephrotoxic medications to the extent possible. Medications to be dosed according to renal function. Monitor electrolytes and replace as needed ENDOCRINE: Maintain blood glucose between 100-180 at all times. Hypoglycemia protocol in place INFECTIOUS DISEASE: Trend temperature, WBC and procalcitonin level Follow cultures, deescalate antibiotics as soon as possible. Panculture if new onset fever ONCOLOGY/HEMATOLOGY/COAGULATION: Monitor for s/s of bleeding Monitor hemoglobin, coagulation studies as needed SKIN: Pressure ulcer prevention per facility protocol Specialty mattress ORTHO/REHAB: Continue PT/OT Prophylaxis: Continue GI and DVT prophylaxis Code Status: Full Resuscitation Disposition: As per attending ATTESTATION BY PHYSICIAN I have evaluated the patient chart, medical records, and spoke with appropriate staff. I reviewed the documentation, medical decision making, and treatment plan as noted by the mid-level provider above. I agree with the findings and plan of care. Porter Lambert MD, ECTOR N LUCY Sep 06, 2024 11:44
--- NOTE | 2024-09-06 12:29 | PN ---
[facility] PROGRESS NOTE Date of Service: Sep 06, 2024 Time of Service: 12: SUBJECTIVE: 08/27 Pt seen at bedside, no acute events overnight. Pt weaned off cardene drip, started on PO medications. Will monitor throughout the day and possibly dc tomorrow if BP remains stable 08/28 Pt seen at bedside, no acute events overnight. Pt blood pressure well controlled however he has significant wheeze, rhoncous breathing and cough. Will continue with nebulizers and systemic steroid treatment. CO2 low, will order ABG and follow up. Pt mildly delirius today but responds appropriately 08/29 patient seen at bedside, no acute events overnight. He is still has prominent wheeze and rhonchus breathing. There was no evidence of pneumonia on initial workup, chest x-ray was clear and procalcitonin was in normal range. We will discontinue antibiotics at this time and continue with nebulizers and systemic steroids. As patient has been somewhat confused holding cefepime may help improve his mental status however he is also on systemic steroids which can also contribute to some delirium. Physical therapy recommending correction for rehab, we will consult case management for placement. Patient blood sugars have been elevated we will start glargine 10 units twice daily. Creatinine increased from 2.3 up to 2.8, patient was started on bicarbonate yesterday, we will continue to monitor his urine output. 08/30 patient seen at bedside, no acute events overnight. His wheeze has improved significantly today, he is sitting at bedside on room air now. We will continue with nebulizers and systemic steroids. He is pending placement to correction. 08/31 patient seen at bedside, no acute events overnight. He has no complaints at bedside, breathing appears to be improved, he continues on room air. Family recommending correction placement. His BUN/creatinine continue to up trend to 91 and 3.4. He has no history of heart failure, we will bolus 1 L and follow up with his renal function tomorrow. Nephrology consulted for further recommendations. 09/01 blood pressure 126/45, afebrile, saturating normal on room air. CBC shows a hemoglobin of 8.6, hematocrit 25.4, WBC of 12.3, platelet count of 252. Sodium 137, potassium 3.2, BUN of 93, creatinine of 3.3, bicarb of 20. ABG with a pH of 7.37, pCO2 24, bicarbonate of 13.8. Currently the patient on sodium bicarbonate 650 mg p.o. t.i.d.. Nephrology consultation requested, continue to follow input and recommendations. Family recommended correction facility, we will discuss with case management. 09/02 patient's blood pressure 162/56, afebrile, saturating normal on room air. Case discussed with the RN, patient has a large bowel movement this morning, he feels hungry. During my visit he is comfortable sitting in the chair, he feels less distended and better today compared to yesterday. Denies nausea, no vomiting, no abdominal pain. BP done yesterday was showing abnormal bowel gas pattern, ileus favored over low colon obstruction. CT of the abdomen showing mildly dilated air-filled loops of colon, no transition some findings most consistent with gastroenteritis or ileus, no transition zone to suggest obs truction, moderate bilateral renal cortical thinning, minimal bilateral pleural effusions. Surgical consultation requested, we will follow input and recommendation, we will repeat KUB, we will possibly start clear liquid diet. Patient is still with urinary retention, we will attempt to insert Griffin catheter today, if unable we will request Urology consult. Patient noted to have mild bilateral lower extremity edema, we will start Lasix 20 mg p.o. b.i.d.. 09/03 the patient remains admitted to the medical floor, case discussed with the RN, the patient back in the room, unable to lie flat for the Gastrografin enema per surgery recommendation. During my visit patient awake, following commands, not in distress. He remains hemodynamically stable. Hemoglobin 9.3, currently tolerating diet, passing gas. Patient evaluated by General surgery, abdominal distention concerning for sigmoid volvulus. Case discussed with the surgery, GI consulted for decompressive sigmoidoscopy, case discussed, plan to do tomorrow. 09/04 patient is seen and examined at bedside, back in the room, per discussion with the RN, refused flexible sigmoidoscopy. He is alert oriented x3, discussed with the patient the importance of having the procedure done, however the patient refused, he stated that he does not want any further medical management, he wants to go back to correction facility with the hospice services. He is a DNR/DNI. We will discuss with the daughter she is available at bedside. 09/05 patient remains admitted to the medical floor, long discussion was done yesterday with the patient in the room in front of her daughter, regarding the importance of having the flexible sigmoidoscopy done. I discussed with the patient that if he refused, and he wanted to go to the correction facility with hospice services I could arrange for that per records not start him on a diet until we will rule out the possibility of volvulus. After a very long discussion the the patient agreed to have the flexible sigmoidoscopy. Today blood pressure 160/64, afebrile, saturating normal on room air. Hemoglobin stable 10.1, hematocrit 29.7. During my visit the patient is back in the room from having flexible sigmoidoscopy, with the following findings: -the perianal and digital rectal examination were normal. Solid stool was found in the rectum, in the sigmoid colon, in the descending colon and in the transfer colon, interfering with a fistulization. Lavage of the area was performed, resulting in incomplete clearance with continued poor visualization. A colonic decompression tube was placed. Impression: -preparation of the colon was poor. -stool in the rectum, in the sigmoid colon, in the descending colon and in the transfer:. -no specimens collected. Recommendations: -return [facility] to [facility] care -clear liquid diet -continue present medications -obtain KUB -give GoLYTELY 500 cc per colon tube every 4 hours -start bisacodyl 5 mg p.o. b.i.d. KUB REVIEWED, GASEOUS DISTENTION OF THE COLON, EXPECTED ON BASIS OF RECENT COLONOSCOPY, NO SIGNIFICANT ABNORMALITIES OTHERWISE. 09/06 patient is seen and examined at bedside, case discussed with the RN, no acute events overnight, patient resting comfortable in bed, abdomen is more soft, tolerating clear liquid diet. Patient had good bowel movement after GoLYTELY 500 cc per: Tube giving every 4 hours and starting bisacodyl, we will advance diet to full liquid diet. Case management consulted, authorization recent for the patient to get approved to correction facility. Discussed with the patient. REVIEW OF SYSTEMS 12 point ROS negative unless noted in HPI PHYSICAL EXAM GENERAL APPEARANCE: The patient is awake, alert, and oriented, in no acute cardiopulmonary distress. NEUROLOGICAL: Cranial nerves II-XII grossly intact. Motor is 5/5 in bilateral upper and lower extremities proximal to distal. No sensory deficits. HEENT: Face is symmetric. Pupils are equal and reactive. Extraocular movements are intact. NECK: Supple. No JVD. No thyromegaly. No submental, submandibular, pre- /postauricular, occipital or supraclavicular lymphadenopathy. CHEST: Normal chest expansion. No Telemetry. LUNGS: no wheezing, no rhonchi, no rales CARDIOVASCULAR: Regular. S1 and S2 normal. No appreciable rubs, murmurs or gallops. ABDOMEN: Less distended, bowel sounds present. No tenderness to palpation. : Deferred. No Griffin. EXTREMITIES: No clubbing. Good capillary refill. SKIN: No skin breakdown. Vital Signs (last 8hr) Date Time Temp Pulse Resp B/P (MAP) Pulse Ox O2 Delivery O2 Flow Rate FiO2 09/06/24 08:00 98.4 71 20 158/61 95 Room Air 21 09/06/24 07:30 72 18 N/A Room Air 21 09/06/24 04:43 98.2 72 19 164/62 96 Room Air LABS: Laboratory: Test 09/06/24 11:48 09/06/24 03:44 Range/Units Whole Blood Glucose 87 70-110 MG/DL Bedside Glucose Comment Notified Nurse White Blood Count 9.2 4.8-10.8 K/uL Red Blood Count 3.14 L 4.50-6.20 MIL/uL Hemoglobin 9.5 L 14.0-18.0 g/dL Hematocrit 28.8 L 42-54 % Mean Corpuscular Volume 91.7 79-99 fL Mean Corpuscular Hemoglobin 30.3 27.0-33.0 pg Mean Corpuscular Hemoglobin Concent 33.0 32.0-36.0 g/dL Red Cell Distribution Width 14.3 11.0-15.5 % Platelet Count 237 130-400 K/uL Mean Platelet Volume 9.8 7.5-10.5 fL Nucleated Red Blood Cells 0.0 0.0-0.19 % Sodium Level 140 136-145 mmol/L Potassium Level 3.3 L 3.5-5.1 mmol/L Chloride Level 104 101-111 mmol/L Carbon Dioxide Level 24 21-32 mmol/L Blood Urea Nitrogen 48 H 7-18 mg/dL Creatinine 2.4 H 0.5-1.3 mg/dL Glomerular Filtration Rate Calc 27 >90 mL/min Random Glucose 90 70-105 mg/dL Total Calcium 8.6 8.5-10.1 mg/dL Magnesium Level 1.70 L 1.80-2.40 mg/dL Total Bilirubin 0.5 0.2-1.0 mg/dL Aspartate Amino Transf (AST/SGOT) 24 10-37 U/L Alanine Aminotransferase (ALT/SGPT) 37 12-78 U/L Alkaline Phosphatase 50 50-136 U/L Total Protein 6.2 6.0-8.3 g/dL Albumin 2.7 L 3.5-5.0 g/dL Current Medications Medications (Trade) Dose Ordered Sig/Abhijit Route PRN Reason Start Time Stop Time Status Last Admin Dose Admin Acetaminophen (TYLenol 325MG TAB) 650 mg Q4H PRN PO MILD PAIN (1-3) 08/26/24 02:00 09/25/24 01:59 09/03/24 19:30 650 MG Acetaminophen (TYLenol 325MG TAB) 650 mg Q6H PRN PO TEMPERATURE GREATER THAN 101.5 08/26/24 02:00 09/25/24 01:59 Acetylcysteine (MUComyst 10% 4ML) 400mg = 4ml [id number] 09/03/24 00:00 09/05/24 13:40 DC 09/05/24 11:08 400 MG Albuterol (DUOneb) 1 udvial BIDRESP 09/05/24 18:00 09/25/24 01:59 Albuterol (DUOneb) 1 udvial [id number] 08/26/24 02:00 09/05/24 10:01 DC 09/05/24 06:28 1 UDVIAL Albuterol (DUOneb) 1 udvial [id number] 09/05/24 12:00 09/05/24 13:40 DC 09/05/24 11:07 1 UDVIAL Amlodipine Besylate (NorvASC 5MG TAB) 5 mg DAILY PO 08/27/24 09:00 08/27/24 07:12 DC Apixaban (EliquIS 2.5 mg) 2.5 mg BID PO 09/02/24 21:00 09/03/24 14:24 DC 09/02/24 21:38 2.5 MG Apixaban (EliquIS 2.5 mg) 2.5 mg BID PO 09/05/24 21:00 10/05/24 20:59 09/06/24 09:44 2.5 MG Apixaban (EliquIS) 5 mg BID PO 09/01/24 21:00 09/02/24 16:46 DC 09/02/24 08:56 5 MG Apixaban (EliquIS) 5 mg BID PO 09/03/24 21:00 09/03/24 14:19 DC Bisacodyl (DulcoLAX 5MG TAB) 5 mg BID PO 09/05/24 21:00 10/05/24 20:59 09/06/24 09:44 5 MG Budesonide (Pulmicort 0.5 Mg/2ml) 0.5 mg BIDRESP IH 08/26/24 18:00 09/05/24 13:42 DC 09/05/24 06:28 0.5 MG Cefepime HCl (MAXipime 2 gm vial) 2 gm Q12H IVPB 08/26/24 10:00 08/29/24 07:19 DC 08/28/24 23:16 2 GM Ceftriaxone Sodium 1 gm/ Sodium Chloride 50 ml @ 100 mls/hr BID IV 08/26/24 09:00 08/26/24 01:51 DC Ceftriaxone Sodium (ROCEphine 1G INJ) 1 gm BID IVPB 08/26/24 09:00 08/26/24 09:43 DC 08/26/24 09:15 1 GM Dextrose (D50w) 50 ml AD PRN IV HYPOGLYCEMIA PROTOCOL 08/26/24 02:00 09/25/24 01:59 09/05/24 05:22 50 ML Epoetin Eros-epbx (Retacrit) 10,000 unit QTU@1600 SQ 09/02/24 16:00 10/02/24 15:59 09/02/24 16:38 10,000 UNIT Furosemide (LASix 20MG TAB) 20 mg BID PO 09/02/24 21:00 09/02/24 17:14 DC Furosemide (LASix 20MG TAB) 20 mg BID@09,17 PO 09/03/24 17:00 09/05/24 11:36 DC 09/05/24 10:02 20 MG Furosemide (LASix 20MG VIAL) 20 mg Q8H IV 09/05/24 12:00 10/05/24 11:59 09/06/24 03:18 20 MG Glucagon (Glucagon 1mg Kit) 1 mg AD PRN IM HYPOGLYCEMIA PROTOCOL 08/26/24 02:00 09/25/24 01:59 Guaifenesin/ Dextromethorphan (RobiTUSSin DM 200/20MG 10ML) 10 ml Q6H PRN PO COUGH 08/31/24 10:30 09/30/24 10:29 Heparin Sodium (Porcine) (HEParin 5,000 UNIT VIAL) 5,000 unit Q12H SQ 08/26/24 21:30 09/01/24 09:57 DC 09/01/24 09:03 5,000 UNIT Hydralazine HCl (APRESOLine 20MG INJ) 10 mg Q6H PRN IV For:SBP above 160;DBP above 90 08/26/24 02:00 09/25/24 01:59 09/06/24 04:13 10 MG Hydralazine HCl ([id number] TAB) 25 mg TID PO 08/26/24 09:00 08/27/24 07:12 DC 08/26/24 21:08 25 MG Hydralazine HCl (PVFSVTNtrn60QH TAB) 50 mg TID PO 08/28/24 09:00 08/28/24 11:31 DC Hydralazine HCl ([id number] TAB) 50 mg TID PO 08/28/24 14:00 09/27/24 13:59 09/05/24 20:19 50 MG Hydralazine HCl ([id number] TAB) 100 mg TID PO 08/27/24 09:00 08/28/24 07:38 DC 08/27/24 09:22 100 MG Hydrochlorothiazide (hydroCHLOROthiazide 25MG) 25 mg DAILY PO 08/29/24 09:00 08/28/24 12:07 DC Insulin Glargine (LANtus 100 UNITS/ML 10 ML VIAL) 10 units BID@0730,2100 SQ 08/29/24 07:30 09/28/24 07:29 09/06/24 06:06 10 UNITS Insulin Human Regular (humuLIN R 100 UNIT/ML 3ML) INSULIN SLIDING SCAL... ACHS SQ 08/26/24 07:30 09/25/24 07:29 08/31/24 21:49 3 UNIT Labetalol HCl (TRANdate 20MG SYG) 10 mg Q6H PRN IV IF SBP GREATER THAN 170 08/26/24 02:00 09/25/24 01:59 08/27/24 05:41 10 MG Lactulose (Constulose 20gm/ 30ml Udcup) 20 gm BID PRN PO CONSTIPATION 08/31/24 13:00 09/30/24 12:59 09/01/24 20:04 20 GM Losartan Potassium (CozAAR 50 mg TAB) 50 mg BID PO 08/27/24 09:00 08/31/24 10:00 DC 08/31/24 09:46 50 MG Magnesium Sulfate 50 ml @ 0 mls/hr PROTOCOL IV 09/06/24 09:30 10/06/24 09:29 Magnesium Sulfate 50 ml @ 0 mls/hr PROTOCOL PRN IV OTHER [SEE ORDER COMMENTS] 08/26/24 02:00 09/06/24 09:32 DC 09/06/24 06:05 25 MLS/HR Melatonin (Melatonin) 5 mg HSPRN PRN PO INSOMNIA 09/01/24 23:00 10/01/24 22:59 09/05/24 22:00 5 MG Methylprednisolone Sodium Succinate (Solu-medROL 40MG) 20 mg Q8H IVP 08/29/24 06:00 08/31/24 12:05 DC 08/31/24 06:33 20 MG Methylprednisolone Sodium Succinate (Solu-medROL 40MG) 40 mg BID IVP 08/27/24 21:00 08/28/24 20:59 DC 08/28/24 09:24 40 MG Metoprolol Tartrate (loprESSOR) 100 mg BID PO 08/26/24 09:00 09/25/24 08:59 09/06/24 09:44 100 MG Montelukast Sodium (SinguLAIR) 10 mg DAILY PO 08/27/24 09:00 09/26/24 08:59 09/06/24 09:44 10 MG Morphine Sulfate (morPHINE 2MG SYG) 2 mg Q4H PRN IV MODERATE PAIN (4-6) 08/26/24 02:00 08/31/24 04:59 DC 08/26/24 06:37 2 MG Nicardipine HCl 20 mg/Sodium Chloride 200 ml @ 0 mls/hr AD PRN IV TITRATE 08/26/24 03:00 08/26/24 02:45 DC Nicardipine HCl 25 mg/Sodium Chloride 250 ml @ 0 mls/hr AD PRN IV TITRATE 08/26/24 03:00 08/27/24 18:03 DC 08/27/24 06:46 50 MLS/HR Nifedipine (adALAT 30MG) 30 mg BID PO 08/28/24 09:00 09/27/24 08:59 09/06/24 09:44 30 MG Nifedipine (adALAT 30MG) 60 mg BID PO 08/27/24 09:00 08/28/24 07:38 DC 08/27/24 07:42 60 MG Nystatin (NystOP 15 GM POWDER) 1 APPLICATION BID TP 09/05/24 21:00 10/05/24 20:59 09/06/24 09:45 1 APPL Ondansetron HCl (zoFRAN 4MG INJ) 4 mg Q6H PRN IV NAUSEA/VOMITING 08/26/24 02:00 09/25/24 01:59 Pantoprazole Sodium (PROTonix 40MG INJ) 40 mg DAILY IVP 08/27/24 09:00 09/26/24 08:59 09/06/24 09:43 40 MG Polyethylene Glycol/ Electrolytes (Golytely/Colyte Soln) 4,000 ml ONCE PO 09/05/24 12:30 09/05/24 13:30 DC 09/05/24 13:52 4,000 ML Potassium Chloride 100 ml @ 100 mls/hr AD PRN IV POTASSIUM PROTOCOL 08/26/24 02:00 09/25/24 01:59 Potassium Chloride (K-Dur 10meq Sr Tab) 10 meq AD PRN PO POTASSIUM PROTOCOL 08/26/24 18:00 09/25/24 01:59 09/06/24 09:43 10 MEQ Potassium Chloride (K-Dur/Klor-Con 20meq) 10 meq AD PRN PO POTASSIUM PROTOCOL 08/26/24 02:00 08/26/24 17:48 DC Potassium Chloride (KCl 10% Elixir 20meq/15ml) 10 meq AD PRN PO POTASSIUM PROTOCOL 08/26/24 02:00 09/25/24 01:59 09/06/24 06:05 10 MEQ Sodium Bicarbonate (Sodium Bicarbonate) 650 mg TID PO 08/28/24 14:00 09/03/24 09:15 DC 09/02/24 21:37 650 MG Sodium Chloride 1,000 ml @ 50 mls/hr Q20H IV 08/26/24 21:00 08/27/24 13:59 DC 08/26/24 21:08 50 MLS/HR Tamsulosin HCl (FloMAX) 0.4 mg BID PO 08/26/24 21:00 09/25/24 20:59 09/06/24 09:44 0.4 MG Vancomycin HCl 250 ml @ 125 mls/hr Q24H IV 08/27/24 12:00 08/29/24 07:19 DC 08/28/24 11:27 125 MLS/HR Vancomycin HCl (Vancomycin Protocol) 1 each AD IV 08/26/24 10:00 08/29/24 07:19 DC Vitamin B Complex/ Vit C/Folic Acid (Nephrovite Tablet) 1 cap DAILY PO 08/26/24 09:00 09/25/24 08:59 09/06/24 09:44 1 CAP Wound Care/ Dressing Products (Venelex Ointment) 1 APPL TID TP 08/26/24 21:00 09/25/24 20:59 09/06/24 09:45 60 GM DIAGNOSTICS / RADIOLOGY: [ ] ASSESSMENT: Sepsis POA Possible pyelonephritis POA Acute kidney injury POA Kidney stone POA Hypertensive urgency POA Acute normocytic normochromic anemia POA Acute leukocytosis POA CHF POA Debility POA Diabetes POA Hyponatremia POA Dehydration POA Hyperlipidemia POA 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 Atrial fibrillation on chronic anticoagulation POA Sacral ulcer POA Abdominal distention, possible ileus versus concern for sigmoid volvulus Urinary retention with indwelling Griffin catheter in place PLAN: Patient had good bowel movement after GoLYTELY 500 cc per: Tube giving every 4 hours and starting bisacodyl, we will advance diet to full liquid diet. Case management consulted, authorization recent for the patient to get approved to correction facility. Discussed with the patient. NEURO: Minimize central acting medications as possible. Fall Precautions. Well lighted room through the day and minimize interruptions through the night to prevent acute delirium. PULMONARY: Supplemental 02 as needed BiPAP as necessary, for respiratory distress Titrate Fio2 to keep Spo2 > or = 90% DuoNebs and CPT as needed IS hourly while awake for pulmonary hygiene prn Out of bed to chair as tolerated Maintain aspiration precautions at all times CARDIOVASCULAR: Follow hemodynamics. Vital signs per facility protocol GI & NUTRITION: Continue nutritional support Aspirations precautions Prokinetic agents and laxatives as needed KIDNEYS & ELECTROLYTES: Strict monitoring of intake and output Daily weights Avoid nephrotoxic agents Monitor electrolytes and replace as needed Goal urine output of 30mL/hr or 0.5mL/kg/hr Medications to be dosed according to renal function. Avoid contrast if possible ENDOCRINE: Maintain blood glucose between 100-180 at all times. Insulin sliding scale for blood glucose management Hypoglycemia and hyperglycemia protocol in place INFECTIOUS DISEASE: Trend temperature, WBC and procalcitonin level Follow cultures, deescalate antibiotics as soon as possible. Panculture if new onset fever HEMATOLOGY & COAGULATION: Monitor H&H. Keep Hgb > 7 Transfuse 1 unit of PRBC for Hgb < 7 Transfuse 1 pack of platelets of platelets < 20, 000 Watch for any signs and symptoms of bleeding SKIN: Pressure ulcer prevention per facility protocol Specialty mattress as needed ORTHO/REHAB Continue PT/OT PRN: MEDICATIONS Tylenol 650 mg po every 4 hrs for fever zofran 4 mg IV every 6 hrs for n/v Hydralazine 5 mg IV every 4 hrs systolic pressure > 160 bowel regiment: lactulose 20 gm PO BID PRN constipation Supportive measures: Continue GI and DVT prophylaxis Disposition: Pending improvement in clinical condition All questions answered time spent: > 35 min BRIANNA MENDEZ MD Sep 06, 2024 12:29
[2024-09-06] MEDS: IpraTROPium/alBUTERol SULFATE 3 ML SOLUTION IH SCH (18:00)
--- NOTE | 2024-09-06 18:12 | PN ---
FOLLOWUP PROGRESS NOTE SUBJECTIVE: An 78-year-old who has had a prolonged hospital course. The patient was initially admitted with acute on chronic renal failure. The patient was found to have obstructive uropathy and Griffin catheter is in place. The patient was resumed on his diuretics and urine output continues to slowly improve. The patient with underlying GI bleeding and GI workup is ongoing and the patient is being seen as a followup visit for all of the above. REVIEW OF SYSTEMS: CONSTITUTIONAL: He is feeling weak and tired. HEENT: No change in vision. No change in hearing. CARDIOVASCULAR: There is no current chest pain or palpitations. PULMONARY: Shortness of breath is improved. GASTROINTESTINAL: He is tolerating a diet. MUSCULOSKELETAL: Complaints of weakness. PHYSICAL EXAMINATION: VITAL SIGNS: Blood pressure 158/61, pulse in the 70s. He is afebrile. GENERAL: He is a chronically ill male, elderly, lying in bed on the medical floor. HEENT: Head is atraumatic. Pupils are equal, roving to light. Oropharynx is without exudate. Nares clear. NECK: There is no JVP. There is no thyromegaly. No mass. CARDIOVASCULAR: Regular. There is no S3 or S4 gallop. LUNGS: Coarse with equal thoracic movement. ABDOMEN: Soft, nondistended, and nontender. EXTREMITIES: Reveal no clubbing or cyanosis. NEUROLOGICAL: He is awake. He is alert. LABORATORY DATA: Sodium 140, potassium 3.3, BUN 48, creatinine is 2.4. Hemoglobin 9.5, hematocrit 28. IMPRESSION: * Acute on chronic renal failure. * Known cardiomyopathy. * Obstructive uropathy. * GI bleeding. PLAN: The patient's creatinine continues to stabilize. Urine output has greatly improved with the diuretics. The patient remains with a Griffin catheter in place. The patient is being seen by case management in regard to final disposition. We will follow closely. TID: [id number] RECEIPT: [id number]
--- NOTE | 2024-09-06 20:20 | NUR ---
MEDS SHIFT ASSESSMENT DONE, PLEASE REFER TO CHART. RE-POSITIONED COMFORTABLY IN BED WITH HOB ELEVATED. DUE MEDS ADMINISTERED, TOLERATED WELL. GOLYTELY 500CC ADMINISTERED IN COLON TUBE ORDERED. CALL LIGHT WITHIN REACH. INSTRUCTED PT TO CALL SOON IN NEED TO BE CHANGED.
--- NOTE | 2024-09-06 21:15 | NUR ---
CHANGED PT REQUESTED FOR SLEEPING PILL. MEDICATED WITH MELATONIN PO. DRESS FITTER AND PCP CLEANSED PT AND DIRTY LINEN CHANGED. RE-APPLIED VENELEX TO BUTTOCKS AND SAMINA-AREA. RE-POSITIONED COMFORTABLY IN BED WITH HOB ELEVATED. CALL LIGHT WITHIN REACH. ENCOURAGED TO REST AND SLEEP.
[2024-09-07] VITALS (13 sets, daily range): BP systolic 115–183; BP diastolic 42–60; PULSE 67–90; RESP 16–20; TEMP 97.7–98.8; O2SAT 96–98
[2024-09-07 04:56] LABS: MAGNESIUM 1.8 mg/dL (1.80-2.40); POTASSIUM 3.1 mmol/L (3.5-5.1)
[2024-09-07] MEDS: MAGNESIUM 2GM PREMIX 50ML 50 ML IV SCH (05:21)
--- NOTE | 2024-09-07 05:37 | NUR ---
GLUCOSE PT'S BLOOD SUGAR CHECK=61. PT IS EASILY AWAKENED. NO CONCERNS VERBALIZED. NO DISTRESS NOTED. PT GIVEN JUICE AND JELL-O TO TAKE, TOLERATED WELL. STARTED ON KCL AND MG REPLACEMENT. WILL RE-CHECK BLOOD SUGAR.
--- NOTE | 2024-09-07 10:00 | PN ---
[facility] PROGRESS NOTE Date of Service: Sep 07, 2024 Time of Service: 09:57 SUBJECTIVE: 08/27 Pt seen at bedside, no acute events overnight. Pt weaned off cardene drip, started on PO medications. Will monitor throughout the day and possibly dc tomorrow if BP remains stable 08/28 Pt seen at bedside, no acute events overnight. Pt blood pressure well controlled however he has significant wheeze, rhoncous breathing and cough. Will continue with nebulizers and systemic steroid treatment. CO2 low, will order ABG and follow up. Pt mildly delirius today but responds appropriately 08/29 patient seen at bedside, no acute events overnight. He is still has prominent wheeze and rhonchus breathing. There was no evidence of pneumonia on initial workup, chest x-ray was clear and procalcitonin was in normal range. We will discontinue antibiotics at this time and continue with nebulizers and systemic steroids. As patient has been somewhat confused holding cefepime may help improve his mental status however he is also on systemic steroids which can also contribute to some delirium. Physical therapy recommending custodial for rehab, we will consult case management for placement. Patient blood sugars have been elevated we will start glargine 10 units twice daily. Creatinine increased from 2.3 up to 2.8, patient was started on bicarbonate yesterday, we will continue to monitor his urine output. 08/30 patient seen at bedside, no acute events overnight. His wheeze has improved significantly today, he is sitting at bedside on room air now. We will continue with nebulizers and systemic steroids. He is pending placement to custodial. 08/31 patient seen at bedside, no acute events overnight. He has no complaints at bedside, breathing appears to be improved, he continues on room air. Family recommending custodial placement. His BUN/creatinine continue to up trend to 91 and 3.4. He has no history of heart failure, we will bolus 1 L and follow up with his renal function tomorrow. Nephrology consulted for further recommendations. 09/01 blood pressure 126/45, afebrile, saturating normal on room air. CBC shows a hemoglobin of 8.6, hematocrit 25.4, WBC of 12.3, platelet count of 252. Sodium 137, potassium 3.2, BUN of 93, creatinine of 3.3, bicarb of 20. ABG with a pH of 7.37, pCO2 24, bicarbonate of 13.8. Currently the patient on sodium bicarbonate 650 mg p.o. t.i.d.. Nephrology consultation requested, continue to follow input and recommendations. Family recommended custodial facility, we will discuss with case management. 09/02 patient's blood pressure 162/56, afebrile, saturating normal on room air. Case discussed with the RN, patient has a large bowel movement this morning, he feels hungry. During my visit he is comfortable sitting in the chair, he feels less distended and better today compared to yesterday. Denies nausea, no vomiting, no abdominal pain. BP done yesterday was showing abnormal bowel gas pattern, ileus favored over low colon obstruction. CT of the abdomen showing mildly dilated air-filled loops of colon, no transition some findings most consistent with gastroenteritis or ileus, no transition zone to suggest obs truction, moderate bilateral renal cortical thinning, minimal bilateral pleural effusions. Surgical consultation requested, we will follow input and recommendation, we will repeat KUB, we will possibly start clear liquid diet. Patient is still with urinary retention, we will attempt to insert Griffin catheter today, if unable we will request Urology consult. Patient noted to have mild bilateral lower extremity edema, we will start Lasix 20 mg p.o. b.i.d.. 09/03 the patient remains admitted to the medical floor, case discussed with the RN, the patient back in the room, unable to lie flat for the Gastrografin enema per surgery recommendation. During my visit patient awake, following commands, not in distress. He remains hemodynamically stable. Hemoglobin 9.3, currently tolerating diet, passing gas. Patient evaluated by General surgery, abdominal distention concerning for sigmoid volvulus. Case discussed with the surgery, GI consulted for decompressive sigmoidoscopy, case discussed, plan to do tomorrow. 09/04 patient is seen and examined at bedside, back in the room, per discussion with the RN, refused flexible sigmoidoscopy. He is alert oriented x3, discussed with the patient the importance of having the procedure done, however the patient refused, he stated that he does not want any further medical management, he wants to go back to custodial facility with the hospice services. He is a DNR/DNI. We will discuss with the daughter she is available at bedside. 09/05 patient remains admitted to the medical floor, long discussion was done yesterday with the patient in the room in front of her daughter, regarding the importance of having the flexible sigmoidoscopy done. I discussed with the patient that if he refused, and he wanted to go to the custodial facility with hospice services I could arrange for that per records not start him on a diet until we will rule out the possibility of volvulus. After a very long discussion the the patient agreed to have the flexible sigmoidoscopy. Today blood pressure 160/64, afebrile, saturating normal on room air. Hemoglobin stable 10.1, hematocrit 29.7. During my visit the patient is back in the room from having flexible sigmoidoscopy, with the following findings: -the perianal and digital rectal examination were normal. Solid stool was found in the rectum, in the sigmoid colon, in the descending colon and in the transfer colon, interfering with a fistulization. Lavage of the area was performed, resulting in incomplete clearance with continued poor visualization. A colonic decompression tube was placed. Impression: -preparation of the colon was poor. -stool in the rectum, in the sigmoid colon, in the descending colon and in the transverse colon. -no specimens collected. Recommendations: -[facility] -clear liquid diet -continue present medications -obtain KUB -give GoLYTELY 500 cc per colon tube every 4 hours -start bisacodyl 5 mg p.o. b.i.d. KUB REVIEWED, GASEOUS DISTENTION OF THE COLON, EXPECTED ON BASIS OF RECENT COL ONOSCOPY, NO SIGNIFICANT ABNORMALITIES OTHERWISE. 09/06 patient is seen and examined at bedside, case discussed with the RN, no a cute events overnight, patient resting comfortable in bed, abdomen is more soft, tolerating clear liquid diet. Patient had good bowel movement after GoLYTELY 500 cc per: Tube giving every 4 hours and starting bisacodyl, we will advance diet to full liquid diet. Case management consulted, authorization recent for the patient to get approved to custodial facility. Discussed with the patient. 09/07 patient is seen and examined at bedside, case discussed with the RN, no acute events overnight, passing gas, moving bowel. Recent KUB and CT of the abdomen, possible ileus versus small-bowel obstruction, surgical consultation requested, concern for possible volvulus, patient initially refused Gastrografin enema, GI consultation requested, flexible sigmoidoscopy done,stool in the rectum, in the sigmoid colon, in the descending colon and in the transverse colon. Recommended give GoLYTELY 500 cc per colon tube every 4 hours for 2 days and bisacodyl 5 mg p.o. b.i.d. continue to follow GI input and recommendation. Patient with a mild anasarca, Lasix increased to 20 mg IV q.8 hours, improved. Discussed with case management, reauthorization submitted for SNF placement. REVIEW OF SYSTEMS 12 point ROS negative unless noted in HPI PHYSICAL EXAM GENERAL APPEARANCE: The patient is awake, alert, and oriented, in no acute cardiopulmonary distress. NEUROLOGICAL: Cranial nerves II-XII grossly intact. Motor is 5/5 in bilateral upper and lower extremities proximal to distal. No sensory deficits. HEENT: Face is symmetric. Pupils are equal and reactive. Extraocular movements are intact. NECK: Supple. No JVD. No thyromegaly. No submental, submandibular, pre-/post auricular, occipital or supraclavicular lymphadenopathy. CHEST: Normal chest expansion. No Telemetry. LUNGS: no wheezing, no rhonchi, no rales CARDIOVASCULAR: Regular. S1 and S2 normal. No appreciable rubs, murmurs or gallops. ABDOMEN: Less distended, bowel sounds present. No tenderness to palpation. : Deferred. No Griffin. EXTREMITIES: No clubbing. Good capillary refill. SKIN: No skin breakdown. Vital Signs (last 8hr) Date Time Temp Pulse Resp B/P (MAP) Pulse Ox O2 Delivery O2 Flow Rate FiO2 09/07/24 08:00 97.7 68 20 165/59 97 Room Air 21 09/07/24 06:57 76 18 N/A Room Air 21 09/07/24 04:47 98.2 67 16 130/42 97 Room Air LABS: Laboratory: Test 09/07/24 06:26 09/07/24 03:57 09/06/24 15:40 09/06/24 03:44 Range/Units Whole Blood Glucose 117 #H 70-110 MG/DL Potassium Level 3.1 L 3.5-5.1 mmol/L Magnesium Level 1.80 1.80-2.40 mg/dL Bedside Glucose Comment Notified Nurse White Blood Count 9.2 4.8-10.8 K/uL Red Blood Count 3.14 L 4.50-6.20 MIL/uL Hemoglobin 9.5 L 14.0-18.0 g/dL Hematocrit 28.8 L 42-54 % Mean Corpuscular Volume 91.7 79-99 fL Mean Corpuscular Hemoglobin 30.3 27.0-33.0 pg Mean Corpuscular Hemoglobin Concent 33.0 32.0-36.0 g/dL Red Cell Distribution Width 14.3 11.0-15.5 % Platelet Count 237 130-400 K/uL Mean Platelet Volume 9.8 7.5-10.5 fL Nucleated Red Blood Cells 0.0 0.0-0.19 % Sodium Level 140 136-145 mmol/L Chloride Level 104 101-111 mmol/L Carbon Dioxide Level 24 21-32 mmol/L Blood Urea Nitrogen 48 H 7-18 mg/dL Creatinine 2.4 H 0.5-1.3 mg/dL Glomerular Filtration Rate Calc 27 >90 mL/min Random Glucose 90 70-105 mg/dL Total Calcium 8.6 8.5-10.1 mg/dL Total Bilirubin 0.5 0.2-1.0 mg/dL Aspartate Amino Transf (AST/SGOT) 24 10-37 U/L Alanine Aminotransferase (ALT/SGPT) 37 12-78 U/L Alkaline Phosphatase 50 50-136 U/L Total Protein 6.2 6.0-8.3 g/dL Albumin 2.7 L 3.5-5.0 g/dL Current Medications Medications (Trade) Dose Ordered Sig/Abhijit Route PRN Reason Start Time Stop Time Status Last Admin Dose Admin Acetaminophen (TYLenol 325MG TAB) 650 mg Q4H PRN PO MILD PAIN (1-3) 08/26/24 02:00 09/25/24 01:59 09/03/24 19:30 650 MG Acetaminophen (TYLenol 325MG TAB) 650 mg Q6H PRN PO TEMPERATURE GREATER THAN 101.5 08/26/24 02:00 09/25/24 01:59 Acetylcysteine (MUComyst 10% 4ML) 400mg = 4ml [id number] 09/03/24 00:00 09/05/24 13:40 DC 09/05/24 11:08 400 MG Albuterol (DUOneb) 1 udvial BIDRESP 09/05/24 18:00 09/25/24 01:59 Albuterol (DUOneb) 1 udvial [id number] 08/26/24 02:00 09/05/24 10:01 DC 09/05/24 06:28 1 UDVIAL Albuterol (DUOneb) 1 udvial [id number] 09/05/24 12:00 09/05/24 13:40 DC 09/05/24 11:07 1 UDVIAL Amlodipine Besylate (NorvASC 5MG TAB) 5 mg DAILY PO 08/27/24 09:00 08/27/24 07:12 DC Apixaban (EliquIS 2.5 mg) 2.5 mg BID PO 09/02/24 21:00 09/03/24 14:24 DC 09/02/24 21:38 2.5 MG Apixaban (EliquIS 2.5 mg) 2.5 mg BID PO 09/05/24 21:00 10/05/24 20:59 09/07/24 08:58 2.5 MG Apixaban (EliquIS) 5 mg BID PO 09/01/24 21:00 09/02/24 16:46 DC 09/02/24 08:56 5 MG Apixaban (EliquIS) 5 mg BID PO 09/03/24 21:00 09/03/24 14:19 DC Bisacodyl (DulcoLAX 5MG TAB) 5 mg BID PO 09/05/24 21:00 10/05/24 20:59 09/07/24 08:58 5 MG Budesonide (Pulmicort 0.5 Mg/2ml) 0.5 mg BIDRESP 08/26/24 18:00 09/05/24 13:42 DC 09/05/24 06:28 0.5 MG Cefepime HCl (MAXipime 2 gm vial) 2 gm Q12H IVPB 08/26/24 10:00 08/29/24 07:19 DC 08/28/24 23:16 2 GM Ceftriaxone Sodium 1 gm/ Sodium Chloride 50 ml @ 100 mls/hr BID IV 08/26/24 09:00 08/26/24 01:51 DC Ceftriaxone Sodium (ROCEphine 1G INJ) 1 gm BID IVPB 08/26/24 09:00 08/26/24 09:43 DC 08/26/24 09:15 1 GM Dextrose (D50w) 50 ml AD PRN IV HYPOGLYCEMIA PROTOCOL 08/26/24 02:00 09/25/24 01:59 09/05/24 05:22 50 ML Epoetin Eros-epbx (Retacrit) 10,000 unit QTU@1600 SQ 09/02/24 16:00 10/02/24 15:59 09/02/24 16:38 10,000 UNIT Furosemide (LASix 20MG TAB) 20 mg BID PO 09/02/24 21:00 09/02/24 17:14 DC Furosemide (LASix 20MG TAB) 20 mg BID@09,17 PO 09/03/24 17:00 09/05/24 11:36 DC 09/05/24 10:02 20 MG Furosemide (LASix 20MG VIAL) 20 mg Q8H IV 09/05/24 12:00 10/05/24 11:59 09/07/24 03:48 20 MG Glucagon (Glucagon 1mg Kit) 1 mg AD PRN IM HYPOGLYCEMIA PROTOCOL 08/26/24 02:00 09/25/24 01:59 Guaifenesin/ Dextromethorphan (RobiTUSSin DM 200/20MG 10ML) 10 ml Q6H PRN PO COUGH 08/31/24 10:30 09/30/24 10:29 Heparin Sodium (Porcine) (HEParin 5,000 UNIT VIAL) 5,000 unit Q12H SQ 08/26/24 21:30 09/01/24 09:57 DC 09/01/24 09:03 5,000 UNIT Hydralazine HCl (APRESOLine 20MG INJ) 10 mg Q6H PRN IV For:SBP above 160;DBP above 90 08/26/24 02:00 09/25/24 01:59 09/06/24 04:13 10 MG Hydralazine HCl ([id number] TAB) 25 mg TID PO 08/26/24 09:00 08/27/24 07:12 DC 08/26/24 21:08 25 MG Hydralazine HCl ([id number] TAB) 50 mg TID PO 08/28/24 09:00 08/28/24 11:31 DC Hydralazine HCl ([id number] TAB) 50 mg TID PO 08/28/24 14:00 09/27/24 13:59 09/07/24 08:57 50 MG Hydralazine HCl ([id number] TAB) 100 mg TID PO 08/27/24 09:00 08/28/24 07:38 DC 08/27/24 09:22 100 MG Hydrochlorothiazide (hydroCHLOROthiazide 25MG) 25 mg DAILY PO 08/29/24 09:00 08/28/24 12:07 DC Insulin Glargine (LANtus 100 UNITS/ML 10 ML VIAL) 10 units BID@0730,2100 SQ 08/29/24 07:30 09/28/24 07:29 09/06/24 20:16 10 UNITS Insulin Human Regular (humuLIN R 100 UNIT/ML 3ML) INSULIN SLIDING SCAL... ACHS SQ 08/26/24 07:30 09/25/24 07:29 08/31/24 21:49 3 UNIT Labetalol HCl (TRANdate 20MG SYG) 10 mg Q6H PRN IV IF SBP GREATER THAN 170 08/26/24 02:00 09/25/24 01:59 08/27/24 05:41 10 MG Lactulose (Constulose 20gm/ 30ml Udcup) 20 gm BID PRN PO CONSTIPATION 08/31/24 13:00 09/30/24 12:59 09/01/24 20:04 20 GM Losartan Potassium (CozAAR 50 mg TAB) 50 mg BID PO 08/27/24 09:00 08/31/24 10:00 DC 08/31/24 09:46 50 MG Magnesium Sulfate 50 ml @ 0 mls/hr PROTOCOL IV 09/06/24 09:30 10/06/24 09:29 09/07/24 05:21 25 MLS/HR Magnesium Sulfate 50 ml @ 0 mls/hr PROTOCOL PRN IV OTHER [SEE ORDER COMMENTS] 08/26/24 02:00 09/06/24 09:32 DC 09/06/24 06:05 25 MLS/HR Melatonin (Melatonin) 5 mg HSPRN PRN PO INSOMNIA 09/01/24 23:00 10/01/24 22:59 09/06/24 21:16 5 MG Methylprednisolone Sodium Succinate (Solu-medROL 40MG) 20 mg Q8H IVP 08/29/24 06:00 08/31/24 12:05 DC 08/31/24 06:33 20 MG Methylprednisolone Sodium Succinate (Solu-medROL 40MG) 40 mg BID IVP 08/27/24 21:00 08/28/24 20:59 DC 08/28/24 09:24 40 MG Metoprolol Tartrate (loprESSOR) 100 mg BID PO 08/26/24 09:00 09/25/24 08:59 09/07/24 08:58 100 MG Montelukast Sodium (SinguLAIR) 10 mg DAILY PO 08/27/24 09:00 09/26/24 08:59 09/07/24 08:58 10 MG Morphine Sulfate (morPHINE 2MG SYG) 2 mg Q4H PRN IV MODERATE PAIN (4-6) 08/26/24 02:00 08/31/24 04:59 DC 08/26/24 06:37 2 MG Nicardipine HCl 20 mg/Sodium Chloride 200 ml @ 0 mls/hr AD PRN IV TITRATE 08/26/24 03:00 08/26/24 02:45 DC Nicardipine HCl 25 mg/Sodium Chloride 250 ml @ 0 mls/hr AD PRN IV TITRATE 08/26/24 03:00 08/27/24 18:03 DC 08/27/24 06:46 50 MLS/HR Nifedipine (adALAT 30MG) 30 mg BID PO 08/28/24 09:00 09/27/24 08:59 09/07/24 08:58 30 MG Nifedipine (adALAT 30MG) 60 mg BID PO 08/27/24 09:00 08/28/24 07:38 DC 08/27/24 07:42 60 MG Nystatin (NystOP 15 GM POWDER) 1 APPLICATION BID TP 09/05/24 21:00 10/05/24 20:59 09/07/24 08:59 1 APPL Ondansetron HCl (zoFRAN 4MG INJ) 4 mg Q6H PRN IV NAUSEA/VOMITING 08/26/24 02:00 09/25/24 01:59 Pantoprazole Sodium (PROTonix 40MG INJ) 40 mg DAILY IVP 08/27/24 09:00 09/26/24 08:59 09/07/24 08:58 40 MG Polyethylene Glycol/ Electrolytes (Golytely/Colyte Soln) 4,000 ml ONCE PO 09/05/24 12:30 09/05/24 13:30 DC 09/05/24 13:52 4,000 ML Potassium Chloride 100 ml @ 100 mls/hr AD PRN IV POTASSIUM PROTOCOL 08/26/24 02:00 09/25/24 01:59 Potassium Chloride (K-Dur 10meq Sr Tab) 10 meq AD PRN PO POTASSIUM PROTOCOL 08/26/24 18:00 09/25/24 01:59 09/07/24 09:04 10 MEQ Potassium Chloride (K-Dur/Klor-Con 20meq) 10 meq AD PRN PO POTASSIUM PROTOCOL 08/26/24 02:00 08/26/24 17:48 DC Potassium Chloride (KCl 10% Elixir 20meq/15ml) 10 meq AD PRN PO POTASSIUM PROTOCOL 08/26/24 02:00 09/25/24 01:59 09/06/24 06:05 10 MEQ Sodium Bicarbonate (Sodium Bicarbonate) 650 mg TID PO 08/28/24 14:00 09/03/24 09:15 DC 09/02/24 21:37 650 MG Sodium Chloride 1,000 ml @ 50 mls/hr Q20H IV 08/26/24 21:00 08/27/24 13:59 DC 08/26/24 21:08 50 MLS/HR Tamsulosin HCl (FloMAX) 0.4 mg BID PO 08/26/24 21:00 09/25/24 20:59 09/07/24 08:58 0.4 MG Vancomycin HCl 250 ml @ 125 mls/hr Q24H IV 08/27/24 12:00 08/29/24 07:19 DC 08/28/24 11:27 125 MLS/HR Vancomycin HCl (Vancomycin Protocol) 1 each AD IV 08/26/24 10:00 08/29/24 07:19 DC Vitamin B Complex/ Vit C/Folic Acid (Nephrovite Tablet) 1 cap DAILY PO 08/26/24 09:00 09/25/24 08:59 09/07/24 08:57 1 CAP Wound Care/ Dressing Products (Venelex Ointment) 1 APPL TID TP 08/26/24 21:00 09/25/24 20:59 09/07/24 08:58 60 GM DIAGNOSTICS / RADIOLOGY: [ ] ASSESSMENT: Sepsis POA Possible pyelonephritis POA Acute kidney injury POA Kidney stone POA Hypertensive urgency POA Acute normocytic normochromic anemia POA Acute leukocytosis POA CHF POA Debility POA Diabetes POA Hyponatremia POA Dehydration POA Hyperlipidemia POA 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 Atrial fibrillation on chronic anticoagulation POA Sacral ulcer POA Abdominal distention, possible ileus versus concern for sigmoid volvulus Urinary retention with indwelling Griffin catheter in place PLAN: Patient remains admitted to the medical floor Continue full liquid diet advanced as tolerated Discussed with case management, reauthorization submitted for discharge plan to SNF NEURO: Minimize central acting medications as possible. Fall Precautions. Well lighted room through the day and minimize interruptions through the night to prevent acute delirium. PULMONARY: Supplemental 02 as needed BiPAP as necessary, for respiratory distress Titrate Fio2 to keep Spo2 > or = 90% DuoNebs and CPT as needed IS hourly while awake for pulmonary hygiene prn Out of bed to chair as tolerated Maintain aspiration precautions at all times CARDIOVASCULAR: Follow hemodynamics. Vital signs per facility protocol GI & NUTRITION: Continue nutritional support Aspirations precautions Prokinetic agents and laxatives as needed KIDNEYS & ELECTROLYTES: Strict monitoring of intake and output Daily weights Avoid nephrotoxic agents Monitor electrolytes and replace as needed Goal urine output of 30mL/hr or 0.5mL/kg/hr Medications to be dosed according to renal function. Avoid contrast if possible ENDOCRINE: Maintain blood glucose between 100-180 at all times. Insulin sliding scale for blood glucose management Hypoglycemia and hyperglycemia protocol in place INFECTIOUS DISEASE: Trend temperature, WBC and procalcitonin level Follow cultures, deescalate antibiotics as soon as possible. Panculture if new onset fever HEMATOLOGY & COAGULATION: Monitor H&H. Keep Hgb > 7 Transfuse 1 unit of PRBC for Hgb < 7 Transfuse 1 pack of platelets of platelets < 20, 000 Watch for any signs and symptoms of bleeding SKIN: Pressure ulcer prevention per facility protocol Specialty mattress as needed ORTHO/REHAB Continue PT/OT PRN: MEDICATIONS Tylenol 650 mg po every 4 hrs for fever zofran 4 mg IV every 6 hrs for n/v Hydralazine 5 mg IV every 4 hrs systolic pressure > 160 bowel regiment: lactulose 20 gm PO BID PRN constipation Supportive measures: Continue GI and DVT prophylaxis Disposition: Pending improvement in clinical condition All questions answered time spent: > 35 min BRIANNA MENDEZ MD Sep 07, 2024 10:00
[2024-09-07] MEDS: PoTASSium chloRIDE 20MEQ ER 20 MEQ ERTAB PO ONE (10:36)
[2024-09-07] MEDS: PoTASSium chloRIDE 20MEQ/100ML 100 ML IV ONE (10:46)
--- NOTE | 2024-09-07 17:02 | HMCIMG ---
ABD 1VW HISTORY: abdominal pain TECHNIQUE: ABD 1VW. COMPARISON: 09/05/2024 FINDINGS AND IMPRESSION: Gaseous distention of loops of small bowel and colon again seen which may represent ileus versus obstruction. Correlate clinically. Catheter is again seen in the pelvis. Stable visualized osseous structures.
--- NOTE | 2024-09-07 19:55 | NUR ---
MEDS SHIFT ASSESSMENT DONE, PLEASE REFER TO CHART. DUE MEDS ADMINISTERED, TOLERATED WELL. KEPT RESTED AND COMFORTABLE IN BED WITH HOB ELEVATED. CALL LIGHT WITHIN REACH.
[2024-09-08] VITALS (8 sets, daily range): BP systolic 131–169; BP diastolic 54–87; PULSE 65–80; RESP 18–20; TEMP 97.8–98.4; O2SAT 96–97
[2024-09-08 04:34] LABS: HEMATOCRIT 28.2 % (42-54); MEAN CORPUSCULAR HEMOGLOBIN 31.1 pg (27.0-33.0); MEAN CORPUSCULAR HGB CONC 34.4 g/dL (32.0-36.0); MEAN CORPUSCULAR VOLUME 90.4 fL (79-99); RED BLOOD CELL COUNT(AUTO) 3.12 MIL/uL (4.50-6.20); RED CELL DISTRIBUTION WIDTH 14.3 % (11.0-15.5); WHITE BLOOD COUNT (AUTO) 13.5 K/uL (4.8-10.8)
[2024-09-08 04:49] LABS: ALBUMIN 2.7 g/dL (3.5-5.0); BILIRUBIN,TOTAL 0.3 mg/dL (0.2-1.0); CREATININE 2.4 mg/dL (0.5-1.3); MAGNESIUM 1.9 mg/dL (1.80-2.40); POTASSIUM 3.3 mmol/L (3.5-5.1); TOTAL PROTEIN, SERUM 6.1 g/dL (6.0-8.3)
--- NOTE | 2024-09-08 05:10 | NUR ---
GLUCOSE PCP INFORMS INDUSTRIAL DIAMOND POLISHER THAT PT'S BLOOD SUGAR=63. PT IS AWAKE AND CONVERSANT. DENIES ANY DISCOMFORT AT THIS TIME. PROVIDED JUICE TO TAKE, TOLERATED WELL. WILL HOLD INSULIN DOSES THIS AM. STARTED ON ELECTROLYTE REPLACEMENT, TOLERATED WELL. KEPT RESTED IN BED. FOR MORE CARE.
--- NOTE | 2024-09-08 07:27 | PN ---
FOLLOWUP PROGRESS NOTE SUBJECTIVE: An 78-year-old male with history of coronary artery disease. The patient initially presented with acute on chronic renal failure with CHF. The patient with obstructive uropathy. Griffin catheter now in place. The patient with underlying renal dysfunction and creatinine has actually stabilized and the patient is being seen for all of the above. REVIEW OF SYSTEMS: CONSTITUTIONAL: He is feeling weak and tired. HEENT: No change in vision. No change in hearing. CARDIOVASCULAR: There is no current chest pain or palpitations. PULMONARY: Shortness of breath has improved. GASTROINTESTINAL: He is tolerating a diet. MUSCULOSKELETAL: Complains of weakness. OBJECTIVE: VITAL SIGNS: Blood pressure is 130/42, pulse 60, he is afebrile. GENERAL: He is a chronically ill male, elderly, lying in bed on the medical floor. HEENT: Head is atraumatic. Pupils are equal, roving to light. Oropharynx is without exudate. Nares are clear. NECK: There is no JVP. There is no thyromegaly. No masses. CARDIOVASCULAR: Regular. There is no S3, S4 or gallop. LUNGS: Coarse with equal thoracic movement. ABDOMEN: Soft, nondistended, nontender. EXTREMITIES: There is no clubbing, no cyanosis. The edema is improved. LABORATORY DATA: Sodium 140, potassium 3.3, BUN 48, creatinine is 2.4. IMPRESSION: * Acute on chronic renal dysfunction. * Known coronary artery disease. * Hypertension. * BPH. PLAN: The patient's creatinine is much improved. He has a history of known chronic renal insufficiency. There is no need for any form of renal replacement therapy. The patient does have significant debilitation. The patient is being seen by leather case finisher following disposition to hopefully to SNF. The patient's potassium has been aggressively repleted. We will follow closely. TID: [id number] RECEIPT: [id number]
--- NOTE | 2024-09-08 09:20 | NUR ---
DR. OTERO AT BEDSIDE. NO NEW ORDERS AT THIS TIME. TO ASK PRIMARY WHEN RECTAL TUBE WILL BE TAKEN OUT.
--- NOTE | 2024-09-08 09:52 | NUR ---
ROUND AT BEDSIDE. TO ASK [facility]/ [facility] IF RECTAL TUBE CAN BE TAKEN OUT. ORDER TO REMOVE WOMACK CATHETER.
--- NOTE | 2024-09-08 12:44 | PN ---
[facility] PROGRESS NOTE Date of Service: Sep 08, 2024 Time of Service: 12:40 SUBJECTIVE: 08/27 Pt seen at bedside, no acute events overnight. Pt weaned off cardene drip, started on PO medications. Will monitor throughout the day and possibly dc tomorrow if BP remains stable 08/28 Pt seen at bedside, no acute events overnight. Pt blood pressure well controlled however he has significant wheeze, rhoncous breathing and cough. Will continue with nebulizers and systemic steroid treatment. CO2 low, will order ABG and follow up. Pt mildly delirius today but responds appropriately 08/29 patient seen at bedside, no acute events overnight. He is still has prominent wheeze and rhonchus breathing. There was no evidence of pneumonia on initial workup, chest x-ray was clear and procalcitonin was in normal range. We will discontinue antibiotics at this time and continue with nebulizers and systemic steroids. As patient has been somewhat confused holding cefepime may help improve his mental status however he is also on systemic steroids which can also contribute to some delirium. Physical therapy recommending retirement for rehab, we will consult case management for placement. Patient blood sugars have been elevated we will start glargine 10 units twice daily. Creatinine increased from 2.3 up to 2.8, patient was started on bicarbonate yesterday, we will continue to monitor his urine output. 08/30 patient seen at bedside, no acute events overnight. His wheeze has improved significantly today, he is sitting at bedside on room air now. We will continue with nebulizers and systemic steroids. He is pending placement to retirement. 08/31 patient seen at bedside, no acute events overnight. He has no complaints at bedside, breathing appears to be improved, he continues on room air. Family recommending retirement placement. His BUN/creatinine continue to up trend to 91 and 3.4. He has no history of heart failure, we will bolus 1 L and follow up with his renal function tomorrow. Nephrology consulted for further recommendations. 09/01 blood pressure 126/45, afebrile, saturating normal on room air. CBC shows a hemoglobin of 8.6, hematocrit 25.4, WBC of 12.3, platelet count of 252. Sodium 137, potassium 3.2, BUN of 93, creatinine of 3.3, bicarb of 20. ABG with a pH of 7.37, pCO2 24, bicarbonate of 13.8. Currently the patient on sodium bicarbonate 650 mg p.o. t.i.d.. Nephrology consultation requested, continue to follow input and recommendations. Family recommended retirement facility, we will discuss with case management. 09/02 patient's blood pressure 162/56, afebrile, saturating normal on room air. Case discussed with the RN, patient has a large bowel movement this morning, he feels hungry. During my visit he is comfortable sitting in the chair, he feels less distended and better today compared to yesterday. Denies nausea, no vomiting, no abdominal pain. BP done yesterday was showing abnormal bowel gas pattern, ileus favored over low colon obstruction. CT of the abdomen showing mildly dilated air-filled loops of colon, no transition some findings most consistent with gastroenteritis or ileus, no transition zone to suggest obs truction, moderate bilateral renal cortical thinning, minimal bilateral pleural effusions. Surgical consultation requested, we will follow input and recommendation, we will repeat KUB, we will possibly start clear liquid diet. Patient is still with urinary retention, we will attempt to insert Griffin catheter today, if unable we will request Urology consult. Patient noted to have mild bilateral lower extremity edema, we will start Lasix 20 mg p.o. b.i.d.. 09/03 the patient remains admitted to the medical floor, case discussed with the RN, the patient back in the room, unable to lie flat for the Gastrografin enema per surgery recommendation. During my visit patient awake, following commands, not in distress. He remains hemodynamically stable. Hemoglobin 9.3, currently tolerating diet, passing gas. Patient evaluated by General surgery, abdominal distention concerning for sigmoid volvulus. Case discussed with the surgery, GI consulted for decompressive sigmoidoscopy, case discussed, plan to do tomorrow. 09/04 patient is seen and examined at bedside, back in the room, per discussion with the RN, refused flexible sigmoidoscopy. He is alert oriented x3, discussed with the patient the importance of having the procedure done, however the patient refused, he stated that he does not want any further medical management, he wants to go back to retirement facility with the hospice services. He is a DNR/DNI. We will discuss with the daughter she is available at bedside. 09/05 patient remains admitted to the medical floor, long discussion was done yesterday with the patient in the room in front of her daughter, regarding the importance of having the flexible sigmoidoscopy done. I discussed with the patient that if he refused, and he wanted to go to the retirement facility with hospice services I could arrange for that per records not start him on a diet until we will rule out the possibility of volvulus. After a very long discussion the the patient agreed to have the flexible sigmoidoscopy. Today blood pressure 160/64, afebrile, saturating normal on room air. Hemoglobin stable 10.1, hematocrit 29.7. During my visit the patient is back in the room from having flexible sigmoidoscopy, with the following findings: -the perianal and digital rectal examination were normal. Solid stool was found in the rectum, in the sigmoid colon, in the descending colon and in the transfer colon, interfering with a fistulization. Lavage of the area was performed, resulting in incomplete clearance with continued poor visualization. A colonic decompression tube was placed. Impression: -preparation of the colon was poor. -stool in the rectum, in the sigmoid colon, in the descending colon and in the transverse colon. -no specimens collected. Recommendations: -[facility] -clear liquid diet -continue present medications -obtain KUB -give GoLYTELY 500 cc per colon tube every 4 hours -start bisacodyl 5 mg p.o. b.i.d. KUB REVIEWED, GASEOUS DISTENTION OF THE COLON, EXPECTED ON BASIS OF RECENT COL ONOSCOPY, NO SIGNIFICANT ABNORMALITIES OTHERWISE. 09/06 patient is seen and examined at bedside, case discussed with the RN, no a cute events overnight, patient resting comfortable in bed, abdomen is more soft, tolerating clear liquid diet. Patient had good bowel movement after GoLYTELY 500 cc per: Tube giving every 4 hours and starting bisacodyl, we will advance diet to full liquid diet. Case management consulted, authorization recent for the patient to get approved to retirement facility. Discussed with the patient. 09/07 patient is seen and examined at bedside, case discussed with the RN, no acute events overnight, passing gas, moving bowel. Recent KUB and CT of the abdomen, possible ileus versus small-bowel obstruction, surgical consultation requested, concern for possible volvulus, patient initially refused Gastrografin enema, GI consultation requested, flexible sigmoidoscopy done,stool in the rectum, in the sigmoid colon, in the descending colon and in the transverse colon. Recommended give GoLYTELY 500 cc per colon tube every 4 hours for 2 days and bisacodyl 5 mg p.o. b.i.d. continue to follow GI input and recommendation. Patient with a mild anasarca, Lasix increased to 20 mg IV q.8 hours, improved. Discussed with case management, reauthorization submitted for SNF placement. 09/08 No acute events overnight. Colon tube still in place, will follow up with GI regarding when to remove. Last reported BM yesterday. Pending SNF placement once cleared REVIEW OF SYSTEMS 12 point ROS negative unless noted in HPI PHYSICAL EXAM GENERAL APPEARANCE: The patient is awake, alert, and oriented, in no acute cardiopulmonary distress. NEUROLOGICAL: Cranial nerves II-XII grossly intact. Motor is 5/5 in bilateral upper and lower extremities proximal to distal. No sensory deficits. HEENT: Face is symmetric. Pupils are equal and reactive. Extraocular movements are intact. NECK: Supple. No JVD. No thyromegaly. No submental, submandibular, pre- /postauricular, occipital or supraclavicular lymphadenopathy. CHEST: Normal chest expansion. No Telemetry. LUNGS: no wheezing, no rhonchi, no rales CARDIOVASCULAR: Regular. S1 and S2 normal. No appreciable rubs, murmurs or gallops. ABDOMEN: Less distended, bowel sounds present. No tenderness to palpation. : Deferred. No Griffin. EXTREMITIES: No clubbing. Good capillary refill. SKIN: No skin breakdown. Vital Signs (last 8hr) Date Time Temp Pulse Resp B/P (MAP) Pulse Ox O2 Delivery O2 Flow Rate FiO2 09/08/24 12:00 97.9 70 20 141/56 97 Room Air 21 09/08/24 08:15 65 18 N/A Room Air 21 09/08/24 08:00 98.4 71 20 158/87 97 Room Air 21 LABS: Laboratory: Test 09/08/24 11:17 09/08/24 03:53 09/06/24 15:40 Range/Units Whole Blood Glucose 129 H 70-110 MG/DL White Blood Count 13.5 H 4.8-10.8 K/uL Red Blood Count 3.12 L 4.50-6.20 MIL/uL Hemoglobin 9.7 L 14.0-18.0 g/dL Hematocrit 28.2 L 42-54 % Mean Corpuscular Volume 90.4 79-99 fL Mean Corpuscular Hemoglobin 31.1 27.0-33.0 pg Mean Corpuscular Hemoglobin Concent 34.4 32.0-36.0 g/dL Red Cell Distribution Width 14.3 11.0-15.5 % Platelet Count 213 130-400 K/uL Mean Platelet Volume 10.1 7.5-10.5 fL Nucleated Red Blood Cells 0.0 0.0-0.19 % Sodium Level 136 136-145 mmol/L Potassium Level 3.3 L 3.5-5.1 mmol/L Chloride Level 102 101-111 mmol/L Carbon Dioxide Level 25 21-32 mmol/L Blood Urea Nitrogen 46 H 7-18 mg/dL Creatinine 2.4 H 0.5-1.3 mg/dL Glomerular Filtration Rate Calc 27 >90 mL/min Random Glucose 59 L 70-105 mg/dL Total Calcium 8.2 L 8.5-10.1 mg/dL Magnesium Level 1.90 1.80-2.40 mg/dL Total Bilirubin 0.3 0.2-1.0 mg/dL Aspartate Amino Transf (AST/SGOT) 17 10-37 U/L Alanine Aminotransferase (ALT/SGPT) 33 12-78 U/L Alkaline Phosphatase 55 50-136 U/L Total Protein 6.1 6.0-8.3 g/dL Albumin 2.7 L 3.5-5.0 g/dL Bedside Glucose Comment Notified Nurse Current Medications Medications (Trade) Dose Ordered Sig/Abhijit Route PRN Reason Start Time Stop Time Status Last Admin Dose Admin Acetaminophen (TYLenol 325MG TAB) 650 mg Q4H PRN PO MILD PAIN (1-3) 08/26/24 02:00 09/25/24 01:59 09/08/24 06:14 650 MG Acetaminophen (TYLenol 325MG TAB) 650 mg Q6H PRN PO TEMPERATURE GREATER THAN 101.5 08/26/24 02:00 09/25/24 01:59 Acetylcysteine (MUComyst 10% 4ML) 400mg = 4ml [id number] IH 09/03/24 00:00 09/05/24 13:40 DC 09/05/24 11:08 400 MG Albuterol (DUOneb) 1 udvial BIDRESP IH 09/05/24 18:00 09/25/24 01:59 Albuterol (DUOneb) 1 udvial B2SYIAN IH 08/26/24 02:00 09/05/24 10:01 DC 09/05/24 06:28 1 UDVIAL Albuterol (DUOneb) 1 udvial [id number] IH 09/05/24 12:00 09/05/24 13:40 DC 09/05/24 11:07 1 UDVIAL Amlodipine Besylate (NorvASC 5MG TAB) 5 mg DAILY PO 08/27/24 09:00 08/27/24 07:12 DC Apixaban (EliquIS 2.5 mg) 2.5 mg BID PO 09/02/24 21:00 09/03/24 14:24 DC 09/02/24 21:38 2.5 MG Apixaban (EliquIS 2.5 mg) 2.5 mg BID PO 09/05/24 21:00 10/05/24 20:59 09/08/24 09:21 2.5 MG Apixaban (EliquIS) 5 mg BID PO 09/01/24 21:00 09/02/24 16:46 DC 09/02/24 08:56 5 MG Apixaban (EliquIS) 5 mg BID PO 09/03/24 21:00 09/03/24 14:19 DC Bisacodyl (DulcoLAX 5MG TAB) 5 mg BID PO 09/05/24 21:00 10/05/24 20:59 09/08/24 09:20 5 MG Budesonide (Pulmicort 0.5 Mg/2ml) 0.5 mg BIDRESP IH 08/26/24 18:00 09/05/24 13:42 DC 09/05/24 06:28 0.5 MG Cefepime HCl (MAXipime 2 gm vial) 2 gm Q12H IVPB 08/26/24 10:00 08/29/24 07:19 DC 08/28/24 23:16 2 GM Ceftriaxone Sodium 1 gm/ Sodium Chloride 50 ml @ 100 mls/hr BID IV 08/26/24 09:00 08/26/24 01:51 DC Ceftriaxone Sodium (ROCEphine 1G INJ) 1 gm BID IVPB 08/26/24 09:00 08/26/24 09:43 DC 08/26/24 09:15 1 GM Dextrose (D50w) 50 ml AD PRN IV HYPOGLYCEMIA PROTOCOL 08/26/24 02:00 09/25/24 01:59 09/05/24 05:22 50 ML Epoetin Eros-epbx (Retacrit) 10,000 unit QTU@1600 SQ 09/02/24 16:00 10/02/24 15:59 09/02/24 16:38 10,000 UNIT Furosemide (LASix 20MG TAB) 20 mg BID PO 09/02/24 21:00 09/02/24 17:14 DC Furosemide (LASix 20MG TAB) 20 mg BID@ PO 09/03/24 17:00 09/05/24 11:36 DC 09/05/24 10:02 20 MG Furosemide (LASix 20MG VIAL) 20 mg Q8H IV 09/05/24 12:00 10/05/24 11:59 09/08/24 12:01 20 MG Glucagon (Glucagon 1mg Kit) 1 mg AD PRN IM HYPOGLYCEMIA PROTOCOL 08/26/24 02:00 09/25/24 01:59 Guaifenesin/ Dextromethorphan (RobiTUSSin DM 200/20MG 10ML) 10 ml Q6H PRN PO COUGH 08/31/24 10:30 09/30/24 10:29 Heparin Sodium (Porcine) (HEParin 5,000 UNIT VIAL) 5,000 unit Q12H SQ 08/26/24 21:30 09/01/24 09:57 DC 09/01/24 09:03 5,000 UNIT Hydralazine HCl (APRESOLine 20MG INJ) 10 mg Q6H PRN IV For:SBP above 160;DBP above 90 08/26/24 02:00 09/25/24 01:59 09/07/24 21:09 10 MG Hydralazine HCl ([id number] TAB) 25 mg TID PO 08/26/24 09:00 08/27/24 07:12 DC 08/26/24 21:08 25 MG Hydralazine HCl ([id number] TAB) 50 mg TID PO 08/28/24 09:00 08/28/24 11:31 DC Hydralazine HCl ([id number] TAB) 50 mg TID PO 08/28/24 14:00 09/27/24 13:59 09/08/24 09:20 50 MG Hydralazine HCl ([id number] TAB) 100 mg TID PO 08/27/24 09:00 08/28/24 07:38 DC 08/27/24 09:22 100 MG Hydrochlorothiazide (hydroCHLOROthiazide 25MG) 25 mg DAILY PO 08/29/24 09:00 08/28/24 12:07 DC Insulin Glargine (LANtus 100 UNITS/ML 10 ML VIAL) 10 units BID@0730,2100 SQ 08/29/24 07:30 09/28/24 07:29 09/07/24 20:02 10 UNITS Insulin Human Regular (humuLIN R 100 UNIT/ML 3ML) INSULIN SLIDING SCAL... ACHS SQ 08/26/24 07:30 09/25/24 07:29 09/07/24 20:01 7 UNIT Labetalol HCl (TRANdate 20MG SYG) 10 mg Q6H PRN IV IF SBP GREATER THAN 170 08/26/24 02:00 09/25/24 01:59 08/27/24 05:41 10 MG Lactulose (Constulose 20gm/ 30ml Udcup) 20 gm BID PRN PO CONSTIPATION 08/31/24 13:00 09/30/24 12:59 09/01/24 20:04 20 GM Losartan Potassium (CozAAR 50 mg TAB) 50 mg BID PO 08/27/24 09:00 08/31/24 10:00 DC 08/31/24 09:46 50 MG Magnesium Sulfate 50 ml @ 0 mls/hr PROTOCOL IV 09/06/24 09:30 10/06/24 09:29 09/08/24 05:07 25 MLS/HR Magnesium Sulfate 50 ml @ 0 mls/hr PROTOCOL PRN IV OTHER [SEE ORDER COMMENTS] 08/26/24 02:00 09/06/24 09:32 DC 09/06/24 06:05 25 MLS/HR Melatonin (Melatonin) 5 mg HSPRN PRN PO INSOMNIA 09/01/24 23:00 10/01/24 22:59 09/07/24 20:05 5 MG Methylprednisolone Sodium Succinate (Solu-medROL 40MG) 20 mg Q8H IVP 08/29/24 06:00 08/31/24 12:05 DC 08/31/24 06:33 20 MG Methylprednisolone Sodium Succinate (Solu-medROL 40MG) 40 mg BID IVP 08/27/24 21:00 08/28/24 20:59 DC 08/28/24 09:24 40 MG Metoprolol Tartrate (loprESSOR) 100 mg BID PO 08/26/24 09:00 09/25/24 08:59 09/08/24 09:20 100 MG Montelukast Sodium (SinguLAIR) 10 mg DAILY PO 08/27/24 09:00 09/26/24 08:59 09/08/24 09:21 10 MG Morphine Sulfate (morPHINE 2MG SYG) 2 mg Q4H PRN IV MODERATE PAIN (4-6) 08/26/24 02:00 08/31/24 04:59 DC 08/26/24 06:37 2 MG Nicardipine HCl 20 mg/Sodium Chloride 200 ml @ 0 mls/hr AD PRN IV TITRATE 08/26/24 03:00 08/26/24 02:45 DC Nicardipine HCl 25 mg/Sodium Chloride 250 ml @ 0 mls/hr AD PRN IV TITRATE 08/26/24 03:00 08/27/24 18:03 DC 08/27/24 06:46 50 MLS/HR Nifedipine (adALAT 30MG) 30 mg BID PO 08/28/24 09:00 09/27/24 08:59 09/08/24 09:22 30 MG Nifedipine (adALAT 30MG) 60 mg BID PO 08/27/24 09:00 08/28/24 07:38 DC 08/27/24 07:42 60 MG Nystatin (NystOP 15 GM POWDER) 1 APPLICATION BID TP 09/05/24 21:00 10/05/24 20:59 09/08/24 09:21 1 APPL Ondansetron HCl (zoFRAN 4MG INJ) 4 mg Q6H PRN IV NAUSEA/VOMITING 08/26/24 02:00 09/25/24 01:59 Pantoprazole Sodium (PROTonix 40MG INJ) 40 mg DAILY IVP 08/27/24 09:00 09/26/24 08:59 09/08/24 09:19 40 MG Polyethylene Glycol/ Electrolytes (Golytely/Colyte Soln) 4,000 ml ONCE PO 09/05/24 12:30 09/05/24 13:30 DC 09/05/24 13:52 4,000 ML Potassium Chloride 100 ml @ 100 mls/hr AD PRN IV POTASSIUM PROTOCOL 08/26/24 02:00 09/25/24 01:59 Potassium Chloride (K-Dur 10meq Sr Tab) 10 meq AD PRN PO POTASSIUM PROTOCOL 08/26/24 18:00 09/25/24 01:59 09/08/24 09:20 10 MEQ Potassium Chloride (K-Dur/Klor-Con 20meq) 10 meq AD PRN PO POTASSIUM PROTOCOL 08/26/24 02:00 08/26/24 17:48 DC Potassium Chloride (KCl 10% Elixir 20meq/15ml) 10 meq AD PRN PO POTASSIUM PROTOCOL 08/26/24 02:00 09/25/24 01:59 09/06/24 06:05 10 MEQ Sodium Bicarbonate (Sodium Bicarbonate) 650 mg TID PO 08/28/24 14:00 09/03/24 09:15 DC 09/02/24 21:37 650 MG Sodium Chloride 1,000 ml @ 50 mls/hr Q20H IV 08/26/24 21:00 08/27/24 13:59 DC 08/26/24 21:08 50 MLS/HR Tamsulosin HCl (FloMAX) 0.4 mg BID PO 08/26/24 21:00 09/25/24 20:59 09/08/24 09:20 0.4 MG Vancomycin HCl 250 ml @ 125 mls/hr Q24H IV 08/27/24 12:00 08/29/24 07:19 DC 08/28/24 11:27 125 MLS/HR Vancomycin HCl (Vancomycin Protocol) 1 each AD IV 08/26/24 10:00 08/29/24 07:19 DC Vitamin B Complex/ Vit C/Folic Acid (Nephrovite Tablet) 1 cap DAILY PO 08/26/24 09:00 09/25/24 08:59 09/08/24 09:20 1 CAP Wound Care/ Dressing Products (Venelex Ointment) 1 APPL TID TP 08/26/24 21:00 09/25/24 20:59 09/08/24 09:21 1 GM DIAGNOSTICS / RADIOLOGY: [ ] ASSESSMENT: Sepsis POA Possible pyelonephritis POA Acute kidney injury POA Kidney stone POA Hypertensive urgency POA Acute normocytic normochromic anemia POA Acute leukocytosis POA CHF POA Debility POA Diabetes POA Hyponatremia POA Dehydration POA Hyperlipidemia POA 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 Atrial fibrillation on chronic anticoagulation POA Sacral ulcer POA Abdominal distention, possible ileus versus concern for sigmoid volvulus Urinary retention with indwelling Griffin catheter in place PLAN: Patient remains admitted to the medical floor Continue full liquid diet advanced as tolerated Discussed with case management, reauthorization submitted for discharge plan to SNF Continue colon tube with lactulose infusions Continue eliquis 2.5mg BID Continue Furosemide 20mg TID Continue glargine 10U BID Contiunue sliding scale, wean as able Continue nifedipine 30mg BID Continue tamsulosin 0.4mg BID Continue metoprolol 100mg BID Disposition: Pending improvement in clinical condition All questions answered time spent: > 35 min AYDEE CARRANZA MD Sep 08, 2024 12:44
[2024-09-08] MEDS: PEG 3350/NA SULF,BICARB,CL/KCL 4000 ML SOLN PO ONE (19:29)
--- NOTE | 2024-09-08 19:38 | NUR ---
RECTAL TUBE GOLYTELY WAS GOING TO BE ADMINISTERED VIA RECTAL TUBE. NOTICED THAT IT WAS OUT. GOLYTELY WAS NOT ADMINISTERED. LUCY PINEDA WAS CONTACTED. PER EDWIN, TO DISREGARD ORDER, CANCEL GOLYTELY AND PATIENT CAN GO HOME TOMORROW.
--- NOTE | 2024-09-08 20:19 | PN ---
GASTROENTEROLOGY PROGRESS NOTE Date of Visit: Sep 08, 2024 Time of Visit: 20:19 Events / Notes: No acute events overnight. s/p flex sig with insertion of decompression rectal tube. Patient was given golytely. Abdomen soft and nontender. Review of Systems: CONSTITUTIONAL: No malaise or change in sensation of wellbeing. ENMT: No rhinorrhea, otorrhea, sinus pain, ear ache. CARDIOVASCULAR: No angina, palpitations, orthopnea or paroxysmal dyspnea. RESPIRATORY: No SOB. GASTROINTESTINAL: No abdominal pain, nausea, vomiting, diarrhea, hematemesis, melena or change in the patient's habitual bowel movements consistency/number. GENITOURINARY: No dysuria, hematuria or change in bladder continence. MUSCULOSKELETAL: No new muscle pain or decrease in muscular strength. No new joint swelling, redness or tenderness. SKIN: No new rash. Physical Exam: GEN: Awake, alert, oriented in person, time and place, and in no acute distress. HEENT: No sinus tenderness. Tympanic membranes were not examined. No rhinorrhea. Oral pharyngeal mucosa is pink, moist and within normal limits. Neck is supple with no cervical lymphadenopathy, thyromegaly or JVD. CHEST: Inspection, palpation and percussion of the chest were unremarkable. Lung auscultation revealed normal breath sounds bilaterally. CARDIAC: PMI is within normal limits. Heart sounds are regular. Normal S1, S2. No gallop or murmur. ABD: Soft, non-tender and not distended. No peritoneal signs on palpation. No organomegaly. Normal bowel sounds. EXT: No cyanosis or clubbing. No edema. SKIN: Intact. No rashes. JOINTS: No evidence of synovitis or acute arthritis. NEURO: Alert and oriented to name, place and person. Cranial nerve examination is unremarkable. No focal motor deficits. Normal speech. Gait is normal. Strength is normal. Vital Signs (last 8hr) Date Time Temp Pulse Resp B/P (MAP) Pulse Ox O2 Delivery O2 Flow Rate FiO2 09/08/24 18:14 76 18 N/A Room Air 21 09/08/24 16:00 97.9 72 20 131/60 97 Room Air 21 Laboratory: [ ] Laboratory: Test 09/08/24 19:49 09/08/24 03:53 Range/Units Whole Blood Glucose 187 H 70-110 MG/DL White Blood Count 13.5 H 4.8-10.8 K/uL Red Blood Count 3.12 L 4.50-6.20 MIL/uL Hemoglobin 9.7 L 14.0-18.0 g/dL Hematocrit 28.2 L 42-54 % Mean Corpuscular Volume 90.4 79-99 fL Mean Corpuscular Hemoglobin 31.1 27.0-33.0 pg Mean Corpuscular Hemoglobin Concent 34.4 32.0-36.0 g/dL Red Cell Distribution Width 14.3 11.0-15.5 % Platelet Count 213 130-400 K/uL Mean Platelet Volume 10.1 7.5-10.5 fL Nucleated Red Blood Cells 0.0 0.0-0.19 % Sodium Level 136 136-145 mmol/L Potassium Level 3.3 L 3.5-5.1 mmol/L Chloride Level 102 101-111 mmol/L Carbon Dioxide Level 25 21-32 mmol/L Blood Urea Nitrogen 46 H 7-18 mg/dL Creatinine 2.4 H 0.5-1.3 mg/dL Glomerular Filtration Rate Calc 27 >90 mL/min Random Glucose 59 L 70-105 mg/dL Total Calcium 8.2 L 8.5-10.1 mg/dL Magnesium Level 1.90 1.80-2.40 mg/dL Total Bilirubin 0.3 0.2-1.0 mg/dL Aspartate Amino Transf (AST/SGOT) 17 10-37 U/L Alanine Aminotransferase (ALT/SGPT) 33 12-78 U/L Alkaline Phosphatase 55 50-136 U/L Total Protein 6.1 6.0-8.3 g/dL Albumin 2.7 L 3.5-5.0 g/dL Current Medications Medications (Trade) Dose Ordered Sig/Abhijit Route PRN Reason Start Time Stop Time Status Last Admin Dose Admin Acetaminophen (TYLenol 325MG TAB) 650 mg Q4H PRN PO MILD PAIN (1-3) 08/26/24 02:00 09/25/24 01:59 09/08/24 06:14 650 MG Acetaminophen (TYLenol 325MG TAB) 650 mg Q6H PRN PO TEMPERATURE GREATER THAN 101.5 08/26/24 02:00 09/25/24 01:59 Acetylcysteine (MUComyst 10% 4ML) 400mg = 4ml [id number] IH 09/03/24 00:00 09/05/24 13:40 DC 09/05/24 11:08 400 MG Albuterol (DUOneb) 1 udvial BIDRESP IH 09/05/24 18:00 09/25/24 01:59 Albuterol (DUOneb) 1 udvial [id number] IH 08/26/24 02:00 09/05/24 10:01 DC 09/05/24 06:28 1 UDVIAL Albuterol (DUOneb) 1 udvial [id number] IH 09/05/24 12:00 09/05/24 13:40 DC 09/05/24 11:07 1 UDVIAL Amlodipine Besylate (NorvASC 5MG TAB) 5 mg DAILY PO 08/27/24 09:00 08/27/24 07:12 DC Apixaban (EliquIS 2.5 mg) 2.5 mg BID PO 09/02/24 21:00 09/03/24 14:24 DC 09/02/24 21:38 2.5 MG Apixaban (EliquIS 2.5 mg) 2.5 mg BID PO 09/05/24 21:00 10/05/24 20:59 09/08/24 09:21 2.5 MG Apixaban (EliquIS) 5 mg BID PO 09/01/24 21:00 09/02/24 16:46 DC 09/02/24 08:56 5 MG Apixaban (EliquIS) 5 mg BID PO 09/03/24 21:00 09/03/24 14:19 DC Bisacodyl (DulcoLAX 5MG TAB) 5 mg BID PO 09/05/24 21:00 10/05/24 20:59 09/08/24 09:20 5 MG Budesonide (Pulmicort 0.5 Mg/2ml) 0.5 mg BIDRESP IH 08/26/24 18:00 09/05/24 13:42 DC 09/05/24 06:28 0.5 MG Cefepime HCl (MAXipime 2 gm vial) 2 gm Q12H IVPB 08/26/24 10:00 08/29/24 07:19 DC 08/28/24 23:16 2 GM Ceftriaxone Sodium 1 gm/ Sodium Chloride 50 ml @ 100 mls/hr BID IV 08/26/24 09:00 08/26/24 01:51 DC Ceftriaxone Sodium (ROCEphine 1G INJ) 1 gm BID IVPB 08/26/24 09:00 08/26/24 09:43 DC 08/26/24 09:15 1 GM Dextrose (D50w) 50 ml AD PRN IV HYPOGLYCEMIA PROTOCOL 08/26/24 02:00 09/25/24 01:59 09/05/24 05:22 50 ML Epoetin Eros-epbx (Retacrit) 10,000 unit QTU@1600 SQ 09/02/24 16:00 10/02/24 15:59 09/02/24 16:38 10,000 UNIT Furosemide (LASix 20MG TAB) 20 mg BID PO 09/02/24 21:00 09/02/24 17:14 DC Furosemide (LASix 20MG TAB) 20 mg BID@09,17 PO 09/03/24 17:00 09/05/24 11:36 DC 09/05/24 10:02 20 MG Furosemide (LASix 20MG VIAL) 20 mg Q8H IV 09/05/24 12:00 10/05/24 11:59 09/08/24 12:01 20 MG Glucagon (Glucagon 1mg Kit) 1 mg AD PRN IM HYPOGLYCEMIA PROTOCOL 08/26/24 02:00 09/08/24 19:58 DC Guaifenesin/ Dextromethorphan (RobiTUSSin DM 200/20MG 10ML) 10 ml Q6H PRN PO COUGH 08/31/24 10:30 09/30/24 10:29 Heparin Sodium (Porcine) (HEParin 5,000 UNIT VIAL) 5,000 unit Q12H SQ 08/26/24 21:30 09/01/24 09:57 DC 09/01/24 09:03 5,000 UNIT Hydralazine HCl (APRESOLine 20MG INJ) 10 mg Q6H PRN IV For:SBP above 160;DBP above 90 08/26/24 02:00 09/25/24 01:59 09/07/24 21:09 10 MG Hydralazine HCl ([id number] TAB) 25 mg TID PO 08/26/24 09:00 08/27/24 07:12 DC 08/26/24 21:08 25 MG Hydralazine HCl ([id number] TAB) 50 mg TID PO 08/28/24 09:00 08/28/24 11:31 DC Hydralazine HCl ([id number] TAB) 50 mg TID PO 08/28/24 14:00 09/27/24 13:59 09/08/24 15:58 50 MG Hydralazine HCl ([id number] TAB) 100 mg TID PO 08/27/24 09:00 08/28/24 07:38 DC 08/27/24 09:22 100 MG Hydrochlorothiazide (hydroCHLOROthiazide 25MG) 25 mg DAILY PO 08/29/24 09:00 08/28/24 12:07 DC Insulin Glargine (LANtus 100 UNITS/ML 10 ML VIAL) 10 units BID@0730,2100 SQ 08/29/24 07:30 09/28/24 07:29 09/07/24 20:02 10 UNITS Insulin Human Regular (humuLIN R 100 UNIT/ML 3ML) INSULIN SLIDING SCAL... ACHS SQ 08/26/24 07:30 09/25/24 07:29 09/08/24 16:02 2 UNIT Labetalol HCl (TRANdate 20MG SYG) 10 mg Q6H PRN IV IF SBP GREATER THAN 170 08/26/24 02:00 09/25/24 01:59 08/27/24 05:41 10 MG Lactulose (Constulose 20gm/ 30ml Udcup) 20 gm BID PRN PO CONSTIPATION 08/31/24 13:00 09/30/24 12:59 09/01/24 20:04 20 GM Losartan Potassium (CozAAR 50 mg TAB) 50 mg BID PO 08/27/24 09:00 08/31/24 10:00 DC 08/31/24 09:46 50 MG Magnesium Sulfate 50 ml @ 0 mls/hr PROTOCOL IV 09/06/24 09:30 10/06/24 09:29 09/08/24 05:07 25 MLS/HR Magnesium Sulfate 50 ml @ 0 mls/hr PROTOCOL PRN IV OTHER [SEE ORDER COMMENTS] 08/26/24 02:00 09/06/24 09:32 DC 09/06/24 06:05 25 MLS/HR Melatonin (Melatonin) 5 mg HSPRN PRN PO INSOMNIA 09/01/24 23:00 10/01/24 22:59 09/07/24 20:05 5 MG Methylprednisolone Sodium Succinate (Solu-medROL 40MG) 20 mg Q8H IVP 08/29/24 06:00 08/31/24 12:05 DC 08/31/24 06:33 20 MG Methylprednisolone Sodium Succinate (Solu-medROL 40MG) 40 mg BID IVP 08/27/24 21:00 08/28/24 20:59 DC 08/28/24 09:24 40 MG Metoprolol Tartrate (loprESSOR) 100 mg BID PO 08/26/24 09:00 09/25/24 08:59 09/08/24 09:20 100 MG Montelukast Sodium (SinguLAIR) 10 mg DAILY PO 08/27/24 09:00 09/26/24 08:59 09/08/24 09:21 10 MG Morphine Sulfate (morPHINE 2MG SYG) 2 mg Q4H PRN IV MODERATE PAIN (4-6) 08/26/24 02:00 08/31/24 04:59 DC 08/26/24 06:37 2 MG Nicardipine HCl 20 mg/Sodium Chloride 200 ml @ 0 mls/hr AD PRN IV TITRATE 08/26/24 03:00 08/26/24 02:45 DC Nicardipine HCl 25 mg/Sodium Chloride 250 ml @ 0 mls/hr AD PRN IV TITRATE 08/26/24 03:00 08/27/24 18:03 DC 08/27/24 06:46 50 MLS/HR Nifedipine (adALAT 30MG) 30 mg BID PO 08/28/24 09:00 09/27/24 08:59 09/08/24 09:22 30 MG Nifedipine (adALAT 30MG) 60 mg BID PO 08/27/24 09:00 08/28/24 07:38 DC 08/27/24 07:42 60 MG Nystatin (NystOP 15 GM POWDER) 1 APPLICATION BID TP 09/05/24 21:00 10/05/24 20:59 09/08/24 09:21 1 APPL Ondansetron HCl (zoFRAN 4MG INJ) 4 mg Q6H PRN IV NAUSEA/VOMITING 08/26/24 02:00 09/25/24 01:59 Pantoprazole Sodium (PROTonix 40MG INJ) 40 mg DAILY IVP 08/27/24 09:00 09/26/24 08:59 09/08/24 09:19 40 MG Polyethylene Glycol/ Electrolytes (Golytely/Colyte Soln) 4,000 ml ONCE PO 09/05/24 12:30 09/05/24 13:30 DC 09/05/24 13:52 4,000 ML Potassium Chloride 100 ml @ 100 mls/hr AD PRN IV POTASSIUM PROTOCOL 08/26/24 02:00 09/25/24 01:59 Potassium Chloride (K-Dur 10meq Sr Tab) 10 meq AD PRN PO POTASSIUM PROTOCOL 08/26/24 18:00 09/25/24 01:59 09/08/24 16:34 10 MEQ Potassium Chloride (K-Dur/Klor-Con 20meq) 10 meq AD PRN PO POTASSIUM PROTOCOL 08/26/24 02:00 08/26/24 17:48 DC Potassium Chloride (KCl 10% Elixir 20meq/15ml) 10 meq AD PRN PO POTASSIUM PROTOCOL 08/26/24 02:00 09/25/24 01:59 09/06/24 06:05 10 MEQ Sodium Bicarbonate (Sodium Bicarbonate) 650 mg TID PO 08/28/24 14:00 09/03/24 09:15 DC 09/02/24 21:37 650 MG Sodium Chloride 1,000 ml @ 50 mls/hr Q20H IV 08/26/24 21:00 08/27/24 13:59 DC 08/26/24 21:08 50 MLS/HR Tamsulosin HCl (FloMAX) 0.4 mg BID PO 08/26/24 21:00 09/25/24 20:59 09/08/24 09:20 0.4 MG Vancomycin HCl 250 ml @ 125 mls/hr Q24H IV 08/27/24 12:00 08/29/24 07:19 DC 08/28/24 11:27 125 MLS/HR Vancomycin HCl (Vancomycin Protocol) 1 each AD IV 08/26/24 10:00 08/29/24 07:19 DC Vitamin B Complex/ Vit C/Folic Acid (Nephrovite Tablet) 1 cap DAILY PO 08/26/24 09:00 09/25/24 08:59 09/08/24 09:20 1 CAP Wound Care/ Dressing Products (Venelex Ointment) 1 APPL TID TP 08/26/24 21:00 09/25/24 20:59 09/08/24 15:55 1 GM Diagnostics / Radiology: [COPY/PASTE HERE IF NO REPORTS PLEASE DELETE SECTION] Assessment: Abnormal imaging with dilated loops of colon Plan: Patient cleared for discharge EDWIN LAGOS [employer] Sep 08, 2024 20:19
--- NOTE | 2024-09-08 20:47 | PN ---
FOLLOWUP PROGRESS NOTE SUBJECTIVE: An 78-year-old male initially presented with acute on chronic renal failure. The patient's creatinine is much improved. He has a history of known chronic renal insufficiency. The patient with obstructive uropathy and has a Griffin catheter in place. The patient is being seen as a followup visit for all of the above. REVIEW OF SYSTEMS: CONSTITUTIONAL: He is feeling weak and tired. HEENT: No change in vision. No change in hearing. CARDIOVASCULAR: There are no current chest pains or palpitations. PULMONARY: He has chronic shortness of breath. GASTROINTESTINAL: He is tolerating some diet. MUSCULOSKELETAL: Complains of weakness. PHYSICAL EXAMINATION: VITAL SIGNS: Blood pressure is 158/87, pulse 70s. He is afebrile. GENERAL: He is a chronically ill male, elderly, lying in bed on the medical floor. HEENT: Head is atraumatic. Pupils are equal, roving to light. Oropharynx is without exudate. Nares clear. NECK: There is no JVP. There is no thyromegaly, no mass. CARDIOVASCULAR: Regular. There is no S3 or S4 gallop. LUNGS: Coarse with equal thoracic movement. ABDOMEN: Soft, nondistended, and nontender. EXTREMITIES: No clubbing, no cyanosis. NEUROLOGICAL: He is awake. He is alert. LABORATORY DATA: Sodium 136, potassium 4.3, BUN 46, creatinine is 2.4. Hemoglobin 9.7, hematocrit 28. IMPRESSION: * Acute and chronic renal failure. * Obstructive uropathy. * Coronary artery disease. * Debilitation. PLAN: The patient's renal function is much improved. He has a history of known chronic renal insufficiency. The patient remains with the Griffin catheter in place. The patient's urine output has improved with the diuretics. The patient does have significant debilitation. He is being seen by case management for final disposition. We will follow closely. TID: [id number] RECEIPT: [id number]
[2024-09-09] VITALS (8 sets, daily range): BP systolic 128–159; BP diastolic 49–72; PULSE 66–81; RESP 18–20; TEMP 97.4–100.2; O2SAT 95–97
[2024-09-09] MEDS: acetaMINOPHEN 325 MG TAB PO PRN (01:08)
--- NOTE | 2024-09-09 09:59 | PN ---
FOLLOWUP PROGRESS NOTE SUBJECTIVE: An 78-year-old male with history of known coronary artery disease. The patient with a history of obstructive uropathy with the Griffin catheter in place. He has a history of known chronic renal insufficiency. The patient also with underlying GI bleeding and has had an extensive GI workup. The patient is being seen as a followup visit for all of the above. REVIEW OF SYSTEMS: CONSTITUTIONAL: He is feeling weak and tired. HEENT: No change in vision. No change in hearing. CARDIOVASCULAR: There is no current chest pain or palpitations. PULMONARY: No shortness of breath. GASTROINTESTINAL: He is tolerating some diet. MUSCULOSKELETAL: Complains of weakness. PHYSICAL EXAMINATION: VITAL SIGNS: Blood pressure is 138/72, pulse 70s, he is afebrile. GENERAL: He is a chronically ill male, elderly, lying in bed on the medical floor. HEENT: Head is atraumatic. Pupils are equal, roving to light. Oropharynx is without exudate. Nares clear. NECK: There is no JVP. There is no thyromegaly, no mass. CARDIOVASCULAR: Regular. There is no S3 or S4 gallop. LUNGS: Coarse with equal thoracic movement. ABDOMEN: Soft, nondistended, and nontender. EXTREMITIES: There is no clubbing or cyanosis. NEUROLOGICAL: He is awake. He is at his baseline. LABORATORY DATA: Sodium 136, potassium 3.3, BUN 46, creatinine 2.4. IMPRESSION: * Acute on chronic renal failure. * Obstructive uropathy. * Known coronary artery disease. * Debilitation. PLAN: The patient's creatinine of 2.4 mg/dL, essentially the patient's baseline. The patient does continue with the Griffin catheter in place. The patient's pulmonary symptoms much improved with the Lasix. He does have significant debilitation. The patient is being seen by case management for final disposition. We will follow closely. TID: [id number] RECEIPT: [id number]
--- NOTE | 2024-09-09 11:39 | NUR ---
[facility] Follow-up: Patient re-assessed by wound healing team. See wound assessment. Assessment and recommendations provided to primary nurse. Education provided. Addendum: 09/10/24 at 1750 by PAUL WINCHESTER RN RN/ Amended: Links added.
--- NOTE | 2024-09-09 12:15 | PN ---
GASTROENTEROLOGY PROGRESS NOTE Date of Visit: Sep 09, 2024 Time of Visit: 12:14 Events / Notes: No acute events overnight. s/p flex sig with insertion of decompression rectal tube. Patient was given golytely. Abdomen soft and nontender. Review of Systems: CONSTITUTIONAL: No malaise or change in sensation of wellbeing. ENMT: No rhinorrhea, otorrhea, sinus pain, ear ache. CARDIOVASCULAR: No angina, palpitations, orthopnea or paroxysmal dyspnea. RESPIRATORY: No SOB. GASTROINTESTINAL: No abdominal pain, nausea, vomiting, diarrhea, hematemesis, melena or change in the patient's habitual bowel movements consistency/number. GENITOURINARY: No dysuria, hematuria or change in bladder continence. MUSCULOSKELETAL: No new muscle pain or decrease in muscular strength. No new joint swelling, redness or tenderness. SKIN: No new rash. Physical Exam: GEN: Awake, alert, oriented in person, time and place, and in no acute distress. HEENT: No sinus tenderness. Tympanic membranes were not examined. No rhinorrhea. Oral pharyngeal mucosa is pink, moist and within normal limits. Neck is supple with no cervical lymphadenopathy, thyromegaly or JVD. CHEST: Inspection, palpation and percussion of the chest were unremarkable. Lung auscultation revealed normal breath sounds bilaterally. CARDIAC: PMI is within normal limits. Heart sounds are regular. Normal S1, S2. No gallop or murmur. ABD: Soft, non-tender and not distended. No peritoneal signs on palpation. No organomegaly. Normal bowel sounds. EXT: No cyanosis or clubbing. No edema. SKIN: Intact. No rashes. JOINTS: No evidence of synovitis or acute arthritis. NEURO: Alert and oriented to name, place and person. Cranial nerve examination is unremarkable. No focal motor deficits. Normal speech. Gait is normal. Strength is normal. Vital Signs (last 8hr) Date Time Temp Pulse Resp B/P (MAP) Pulse Ox O2 Delivery O2 Flow Rate FiO2 09/09/24 08:00 97.9 78 18 138/72 96 Room Air 21 09/09/24 06:54 74 18 N/A Room Air 21 Laboratory: [ ] Laboratory: Test 09/09/24 11:34 09/08/24 03:53 Range/Units Whole Blood Glucose 184 H 70-110 MG/DL White Blood Count 13.5 H 4.8-10.8 K/uL Red Blood Count 3.12 L 4.50-6.20 MIL/uL Hemoglobin 9.7 L 14.0-18.0 g/dL Hematocrit 28.2 L 42-54 % Mean Corpuscular Volume 90.4 79-99 fL Mean Corpuscular Hemoglobin 31.1 27.0-33.0 pg Mean Corpuscular Hemoglobin Concent 34.4 32.0-36.0 g/dL Red Cell Distribution Width 14.3 11.0-15.5 % Platelet Count 213 130-400 K/uL Mean Platelet Volume 10.1 7.5-10.5 fL Nucleated Red Blood Cells 0.0 0.0-0.19 % Sodium Level 136 136-145 mmol/L Potassium Level 3.3 L 3.5-5.1 mmol/L Chloride Level 102 101-111 mmol/L Carbon Dioxide Level 25 21-32 mmol/L Blood Urea Nitrogen 46 H 7-18 mg/dL Creatinine 2.4 H 0.5-1.3 mg/dL Glomerular Filtration Rate Calc 27 >90 mL/min Random Glucose 59 L 70-105 mg/dL Total Calcium 8.2 L 8.5-10.1 mg/dL Magnesium Level 1.90 1.80-2.40 mg/dL Total Bilirubin 0.3 0.2-1.0 mg/dL Aspartate Amino Transf (AST/SGOT) 17 10-37 U/L Alanine Aminotransferase (ALT/SGPT) 33 12-78 U/L Alkaline Phosphatase 55 50-136 U/L Total Protein 6.1 6.0-8.3 g/dL Albumin 2.7 L 3.5-5.0 g/dL Current Medications Medications (Trade) Dose Ordered Sig/Abhijit Route PRN Reason Start Time Stop Time Status Last Admin Dose Admin Acetaminophen (TYLenol 325MG TAB) 650 mg Q4H PRN PO MILD PAIN (1-3) 08/26/24 02:00 09/25/24 01:59 09/08/24 06:14 650 MG Acetaminophen (TYLenol 325MG TAB) 650 mg Q6H PRN PO TEMPERATURE GREATER THAN 101.5 08/26/24 02:00 09/25/24 01:59 09/09/24 01:08 650 MG Acetylcysteine (MUComyst 10% 4ML) 400mg = 4ml [id number] IH 09/03/24 00:00 09/05/24 13:40 DC 09/05/24 11:08 400 MG Albuterol (DUOneb) 1 udvial BIDRESP IH 09/05/24 18:00 09/25/24 01:59 Albuterol (DUOneb) 1 udvial [id number] IH 08/26/24 02:00 09/05/24 10:01 DC 09/05/24 06:28 1 UDVIAL Albuterol (DUOneb) 1 udvial [id number] IH 09/05/24 12:00 09/05/24 13:40 DC 09/05/24 11:07 1 UDVIAL Amlodipine Besylate (NorvASC 5MG TAB) 5 mg DAILY PO 08/27/24 09:00 08/27/24 07:12 DC Apixaban (EliquIS 2.5 mg) 2.5 mg BID PO 09/02/24 21:00 09/03/24 14:24 DC 09/02/24 21:38 2.5 MG Apixaban (EliquIS 2.5 mg) 2.5 mg BID PO 09/05/24 21:00 10/05/24 20:59 09/09/24 10:58 2.5 MG Apixaban (EliquIS) 5 mg BID PO 09/01/24 21:00 09/02/24 16:46 DC 09/02/24 08:56 5 MG Apixaban (EliquIS) 5 mg BID PO 09/03/24 21:00 09/03/24 14:19 DC Bisacodyl (DulcoLAX 5MG TAB) 5 mg BID PO 09/05/24 21:00 10/05/24 20:59 09/09/24 10:57 5 MG Budesonide (Pulmicort 0.5 Mg/2ml) 0.5 mg BIDRESP IH 08/26/24 18:00 09/05/24 13:42 DC 09/05/24 06:28 0.5 MG Cefepime HCl (MAXipime 2 gm vial) 2 gm Q12H IVPB 08/26/24 10:00 08/29/24 07:19 DC 08/28/24 23:16 2 GM Ceftriaxone Sodium 1 gm/ Sodium Chloride 50 ml @ 100 mls/hr BID IV 08/26/24 09:00 08/26/24 01:51 DC Ceftriaxone Sodium (ROCEphine 1G INJ) 1 gm BID IVPB 08/26/24 09:00 08/26/24 09:43 DC 08/26/24 09:15 1 GM Dextrose (D50w) 50 ml AD PRN IV HYPOGLYCEMIA PROTOCOL 08/26/24 02:00 09/25/24 01:59 09/05/24 05:22 50 ML Epoetin Eros-epbx (Retacrit) 10,000 unit QTU@1600 SQ 09/02/24 16:00 10/02/24 15:59 09/02/24 16:38 10,000 UNIT Furosemide (LASix 20MG TAB) 20 mg BID PO 09/02/24 21:00 09/02/24 17:14 DC Furosemide (LASix 20MG TAB) 20 mg BID@09,17 PO 09/03/24 17:00 09/05/24 11:36 DC 09/05/24 10:02 20 MG Furosemide (LASix 20MG VIAL) 20 mg Q8H IV 09/05/24 12:00 10/05/24 11:59 09/09/24 04:17 20 MG Glucagon (Glucagon 1mg Kit) 1 mg AD PRN IM HYPOGLYCEMIA PROTOCOL 08/26/24 02:00 09/08/24 19:58 DC Guaifenesin/ Dextromethorphan (RobiTUSSin DM 200/20MG 10ML) 10 ml Q6H PRN PO COUGH 08/31/24 10:30 09/30/24 10:29 Heparin Sodium (Porcine) (HEParin 5,000 UNIT VIAL) 5,000 unit Q12H SQ 08/26/24 21:30 09/01/24 09:57 DC 09/01/24 09:03 5,000 UNIT Hydralazine HCl (APRESOLine 20MG INJ) 10 mg Q6H PRN IV For:SBP above 160;DBP above 90 08/26/24 02:00 09/25/24 01:59 09/07/24 21:09 10 MG Hydralazine HCl ([id number] TAB) 25 mg TID PO 08/26/24 09:00 08/27/24 07:12 DC 08/26/24 21:08 25 MG Hydralazine HCl ([id number] TAB) 50 mg TID PO 08/28/24 09:00 08/28/24 11:31 DC Hydralazine HCl ([id number] TAB) 50 mg TID PO 08/28/24 14:00 09/27/24 13:59 09/09/24 10:57 50 MG Hydralazine HCl ([id number] TAB) 100 mg TID PO 08/27/24 09:00 08/28/24 07:38 DC 08/27/24 09:22 100 MG Hydrochlorothiazide (hydroCHLOROthiazide 25MG) 25 mg DAILY PO 08/29/24 09:00 08/28/24 12:07 DC Insulin Glargine (LANtus 100 UNITS/ML 10 ML VIAL) 10 units BID@0730,2100 SQ 08/29/24 07:30 09/28/24 07:29 09/09/24 06:15 10 UNITS Insulin Human Regular (humuLIN R 100 UNIT/ML 3ML) INSULIN SLIDING SCAL... ACHS SQ 08/26/24 07:30 09/25/24 07:29 09/08/24 20:26 2 UNIT Labetalol HCl (TRANdate 20MG SYG) 10 mg Q6H PRN IV IF SBP GREATER THAN 170 08/26/24 02:00 09/25/24 01:59 08/27/24 05:41 10 MG Lactulose (Constulose 20gm/ 30ml Udcup) 20 gm BID PRN PO CONSTIPATION 08/31/24 13:00 09/30/24 12:59 09/01/24 20:04 20 GM Losartan Potassium (CozAAR 50 mg TAB) 50 mg BID PO 08/27/24 09:00 08/31/24 10:00 DC 08/31/24 09:46 50 MG Magnesium Sulfate 50 ml @ 0 mls/hr PROTOCOL IV 09/06/24 09:30 10/06/24 09:29 09/08/24 05:07 25 MLS/HR Magnesium Sulfate 50 ml @ 0 mls/hr PROTOCOL PRN IV OTHER [SEE ORDER COMMENTS] 08/26/24 02:00 09/06/24 09:32 DC 09/06/24 06:05 25 MLS/HR Melatonin (Melatonin) 5 mg HSPRN PRN PO INSOMNIA 09/01/24 23:00 10/01/24 22:59 09/08/24 20:24 5 MG Methylprednisolone Sodium Succinate (Solu-medROL 40MG) 20 mg Q8H IVP 08/29/24 06:00 08/31/24 12:05 DC 08/31/24 06:33 20 MG Methylprednisolone Sodium Succinate (Solu-medROL 40MG) 40 mg BID IVP 08/27/24 21:00 08/28/24 20:59 DC 08/28/24 09:24 40 MG Metoprolol Tartrate (loprESSOR) 100 mg BID PO 08/26/24 09:00 09/25/24 08:59 09/09/24 10:57 100 MG Montelukast Sodium (SinguLAIR) 10 mg DAILY PO 08/27/24 09:00 09/26/24 08:59 09/09/24 10:58 10 MG Morphine Sulfate (morPHINE 2MG SYG) 2 mg Q4H PRN IV MODERATE PAIN (4-6) 08/26/24 02:00 08/31/24 04:59 DC 08/26/24 06:37 2 MG Nicardipine HCl 20 mg/Sodium Chloride 200 ml @ 0 mls/hr AD PRN IV TITRATE 08/26/24 03:00 08/26/24 02:45 DC Nicardipine HCl 25 mg/Sodium Chloride 250 ml @ 0 mls/hr AD PRN IV TITRATE 08/26/24 03:00 08/27/24 18:03 DC 08/27/24 06:46 50 MLS/HR Nifedipine (adALAT 30MG) 30 mg BID PO 08/28/24 09:00 09/27/24 08:59 09/09/24 10:57 30 MG Nifedipine (adALAT 30MG) 60 mg BID PO 08/27/24 09:00 08/28/24 07:38 DC 08/27/24 07:42 60 MG Nystatin (NystOP 15 GM POWDER) 1 APPLICATION BID TP 09/05/24 21:00 10/05/24 20:59 09/09/24 11:00 1 APPL Ondansetron HCl (zoFRAN 4MG INJ) 4 mg Q6H PRN IV NAUSEA/VOMITING 08/26/24 02:00 09/25/24 01:59 Pantoprazole Sodium (PROTonix 40MG INJ) 40 mg DAILY IVP 08/27/24 09:00 09/26/24 08:59 09/09/24 10:52 40 MG Polyethylene Glycol/ Electrolytes (Golytely/Colyte Soln) 4,000 ml ONCE PO 09/05/24 12:30 09/05/24 13:30 DC 09/05/24 13:52 4,000 ML Potassium Chloride 100 ml @ 100 mls/hr AD PRN IV POTASSIUM PROTOCOL 08/26/24 02:00 09/25/24 01:59 Potassium Chloride (K-Dur 10meq Sr Tab) 10 meq AD PRN PO POTASSIUM PROTOCOL 08/26/24 18:00 09/25/24 01:59 09/08/24 16:34 10 MEQ Potassium Chloride (K-Dur/Klor-Con 20meq) 10 meq AD PRN PO POTASSIUM PROTOCOL 08/26/24 02:00 08/26/24 17:48 DC Potassium Chloride (KCl 10% Elixir 20meq/15ml) 10 meq AD PRN PO POTASSIUM PROTOCOL 08/26/24 02:00 09/25/24 01:59 09/06/24 06:05 10 MEQ Sodium Bicarbonate (Sodium Bicarbonate) 650 mg TID PO 08/28/24 14:00 09/03/24 09:15 DC 09/02/24 21:37 650 MG Sodium Chloride 1,000 ml @ 50 mls/hr Q20H IV 08/26/24 21:00 08/27/24 13:59 DC 08/26/24 21:08 50 MLS/HR Tamsulosin HCl (FloMAX) 0.4 mg BID PO 08/26/24 21:00 09/25/24 20:59 09/09/24 10:58 0.4 MG Vancomycin HCl 250 ml @ 125 mls/hr Q24H IV 08/27/24 12:00 08/29/24 07:19 DC 08/28/24 11:27 125 MLS/HR Vancomycin HCl (Vancomycin Protocol) 1 each AD IV 08/26/24 10:00 08/29/24 07:19 DC Vitamin B Complex/ Vit C/Folic Acid (Nephrovite Tablet) 1 cap DAILY PO 08/26/24 09:00 09/25/24 08:59 09/09/24 10:57 1 CAP Wound Care/ Dressing Products (Venelex Ointment) 1 APPL TID TP 08/26/24 21:00 09/25/24 20:59 09/09/24 11:00 1 GM Diagnostics / Radiology: [COPY/PASTE HERE IF NO REPORTS PLEASE DELETE SECTION] Assessment: Abnormal imaging with dilated loops of colon Plan: Patient cleared for discharge EDWIN LAGOS [employer] Sep 09, 2024 12:14
[2024-09-09] MEDS ORDERED: NIFE-40 PO (15:05)
[2024-09-09] MEDS ORDERED: TAMS-55 PO (15:05)
[2024-09-09] MEDS ORDERED: HYDR25 PO (15:05)
[2024-09-09] MEDS ORDERED: FURO20TA4 PO (15:08)
[2024-09-09] MEDS ORDERED: POLY17PO4 PO (15:10)
--- NOTE | 2024-09-09 17:12 | NUR ---
Nutrition consult per LOS > 7 Reviewed labs, notes, and medications. Pt last admin 04/09/24, has parkinsons disease, sacral ulcer, pending SNF placement, on FLD + pureed diet, b-complex, diuretics, insulin, K 3.3(L), elevated BUN 46, elevated Cr 2.4, BG 143 (H) per chart review. 100%PO intake, wt via standing scale, last BM 09/08/24, buttock ulcer, mild pitting, no edema per nursing. Advance diet when medically feasible to 75 gm cho +HH diet Recommendations: -Provide Nepro TID while Pt on FLD -Fluid restriction per MD -Monitor PO intake -Encourage PO intake as able -Monitor BM -If no BM >3 days consider stool softener -Monitor electrolytes -Replenish electrolytes per protocol -Monitor wts -Reweigh as able -Order Vit D, vit b-12 labs to rule out deficiencies -Provide NEPHRO-ERICH QD if medically feasible -Texture per ELEMENTARY TEACHER recs -Recommend Pt to follow up with PCP -Monitor goals of care RD to follow + available for consult per protocol Addendum: 09/09/24 at [address] Amended: Links added.
--- NOTE | 2024-09-09 17:58 | NUR ---
DR CARRANZA NOTIFIED PATIENT UNABLE TO AMBULATE TO [facility]ELCHA[facility] FOR DISCHARGE AT THIS TIME ,PATIENT STATES I DONT THINK I CAN GO HOME I WOULD LIKE TO GO TO REHAB FACILITY INSTEAD, DR CARRANZA NOTIFIED OF CHANGE.ORDERS T CONSULT CASE MANAGEMENT FOR PLACEMENT.
--- NOTE | 2024-09-09 18:20 | PN ---
[facility] PROGRESS NOTE Date of Service: Sep 09, 2024 Time of Service: 18:18 SUBJECTIVE: 08/27 Pt seen at bedside, no acute events overnight. Pt weaned off cardene drip, started on PO medications. Will monitor throughout the day and possibly dc tomorrow if BP remains stable 08/28 Pt seen at bedside, no acute events overnight. Pt blood pressure well controlled however he has significant wheeze, rhoncous breathing and cough. Will continue with nebulizers and systemic steroid treatment. CO2 low, will order ABG and follow up. Pt mildly delirius today but responds appropriately 08/29 patient seen at bedside, no acute events overnight. He is still has prominent wheeze and rhonchus breathing. There was no evidence of pneumonia on initial workup, chest x-ray was clear and procalcitonin was in normal range. We will discontinue antibiotics at this time and continue with nebulizers and syste lazaro steroids. As patient has been somewhat confused holding cefepime may help improve his mental status however he is also on systemic steroids which can also contribute to some delirium. Physical therapy recommending shelter for rehab, we will consult case management for placement. Patient blood sugars have been elevated we will start glargine 10 units twice daily. Creatinine increased from 2.3 up to 2.8, patient was started on bicarbonate yesterday, we will continue to monitor his urine output. 08/30 patient seen at bedside, no acute events overnight. His wheeze has improved significantly today, he is sitting at bedside on room air now. We will continue with nebulizers and systemic steroids. He is pending placement to shelter. 08/31 patient seen at bedside, no acute events overnight. He has no complaints at bedside, breathing appears to be improved, he continues on room air. Family recommending shelter placement. His BUN/creatinine continue to up trend to 91 and 3.4. He has no history of heart failure, we will bolus 1 L and follow up with his renal function tomorrow. Nephrology consulted for further recommendations. 09/01 blood pressure 126/45, afebrile, saturating normal on room air. CBC shows a hemoglobin of 8.6, hematocrit 25.4, WBC of 12.3, platelet count of 252. Sodium 137, potassium 3.2, BUN of 93, creatinine of 3.3, bicarb of 20. ABG with a pH of 7.37, pCO2 24, bicarbonate of 13.8. Currently the patient on sodium bicarbonate 650 mg p.o. t.i.d.. Nephrology consultation requested, continue to follow input and recommendations. Family recommended shelter facility, we will discuss with case management. 09/02 patient's blood pressure 162/56, afebrile, saturating normal on room air. Case discussed with the RN, patient has a large bowel movement this morning, he feels hungry. During my visit he is comfortable sitting in the chair, he feels less distended and better today compared to yesterday. Denies nausea, no vomiting, no abdominal pain. BP done yesterday was showing abnormal bowel gas pattern, ileus favored over low colon obstruction. CT of the abdomen showing mildly dilated air-filled loops of colon, no transition some findings most consistent with gastroenteritis or ileus, no transition zone to suggest ob struction, moderate bilateral renal cortical thinning, minimal bilateral pleural effusions. Surgical consultation requested, we will follow input and recommendation, we will repeat KUB, we will possibly start clear liquid diet. Patient is still with urinary retention, we will attempt to insert Griffin catheter today, if unable we will request Urology consult. Patient noted to have mild bilateral lower extremity edema, we will start Lasix 20 mg p.o. b.i.d.. 09/03 the patient remains admitted to the medical floor, case discussed with the RN, the patient back in the room, unable to lie flat for the Gastrografin enema per surgery recommendation. During my visit patient awake, following commands, not in distress. He remains hemodynamically stable. Hemoglobin 9.3, currently tolerating diet, passing gas. Patient evaluated by General surgery, abdominal distention concerning for sigmoid volvulus. Case discussed with the surgery, GI consulted for decompressive sigmoidoscopy, case discussed, plan to do tomorrow. 09/04 patient is seen and examined at bedside, back in the room, per discussion with the RN, refused flexible sigmoidoscopy. He is alert oriented x3, discussed with the patient the importance of having the procedure done, however the patient refused, he stated that he does not want any further medical management, he wants to go back to shelter facility with the hospice services. He is a DNR/DNI. We will discuss with the daughter she is available at bedside. 09/05 patient remains admitted to the medical floor, long discussion was done yesterday with the patient in the room in front of her daughter, regarding the importance of having the flexible sigmoidoscopy done. I discussed with the patient that if he refused, and he wanted to go to the shelter facility with hospice services I could arrange for that per records not start him on a diet until we will rule out the possibility of volvulus. After a very long discussion the the patient agreed to have the flexible sigmoidoscopy. Today blood pressure 160/64, afebrile, saturating normal on room air. Hemoglobin stable 10.1, hematocrit 29.7. During my visit the patient is back in the room from having flexible sigmoidoscopy, with the following findings: -the perianal and digital rectal examination were normal. Solid stool was found in the rectum, in the sigmoid colon, in the descending colon and in the transfer colon, interfering with a fistulization. Lavage of the area was performed, resulting in incomplete clearance with continued poor visualization. A colonic decompression tube was placed. Impression: -preparation of the colon was poor. -stool in the rectum, in the sigmoid colon, in the descending colon and in the transverse colon. -no specimens collected. Recommendations: -[facility] -clear liquid diet -continue present medications -obtain KUB -give GoLYTELY 500 cc per colon tube every 4 hours -start bisacodyl 5 mg p.o. b.i.d. KUB REVIEWED, GASEOUS DISTENTION OF THE COLON, EXPECTED ON BASIS OF RECENT CO LONOSCOPY, NO SIGNIFICANT ABNORMALITIES OTHERWISE. 09/06 patient is seen and examined at bedside, case discussed with the RN, no acute events overnight, patient resting comfortable in bed, abdomen is more soft, tolerating clear liquid diet. Patient had good bowel movement after GoLYTELY 500 cc per: Tube giving every 4 hours and starting bisacodyl, we will advance diet to full liquid diet. Case management consulted, authorization recent for the patient to get approved to shelter facility. Discussed with the patient. 09/07 patient is seen and examined at bedside, case discussed with the RN, no acute events overnight, passing gas, moving bowel. Recent KUB and CT of the abdomen, possible ileus versus small-bowel obstruction, surgical consultation requested, concern for possible volvulus, patient initially refused Gastrografin enema, GI consultation requested, flexible sigmoidoscopy done,stool in the rectum, in the sigmoid colon, in the descending colon and in the transverse colon. Recommended give GoLYTELY 500 cc per colon tube every 4 hours for 2 days and bisacodyl 5 mg p.o. b.i.d. continue to follow GI input and recommendation. Patient with a mild anasarca, Lasix increased to 20 mg IV q.8 hours, improved. Discussed with case management, reauthorization submitted for SNF placement. 09/08 No acute events overnight. Colon tube still in place, will follow up with GI regarding when to remove. Last reported BM yesterday. Pending SNF placement once cleared 09/09 Pt initially discharged however he was unable to transfer to chair and asked for placement to rehab. Case management to assist REVIEW OF SYSTEMS 12 point ROS negative unless noted in HPI PHYSICAL EXAM GENERAL APPEARANCE: The patient is awake, alert, and oriented, in no acute cardiopulmonary distress. NEUROLOGICAL: Cranial nerves II-XII grossly intact. Motor is 5/5 in bilateral upper and lower extremities proximal to distal. No sensory deficits. HEENT: Face is symmetric. Pupils are equal and reactive. Extraocular movements are intact. NECK: Supple. No JVD. No thyromegaly. No submental, submandibular, pre- /postauricular, occipital or supraclavicular lymphadenopathy. CHEST: Normal chest expansion. No Telemetry. LUNGS: no wheezing, no rhonchi, no rales CARDIOVASCULAR: Regular. S1 and S2 normal. No appreciable rubs, murmurs or gallops. ABDOMEN: Less distended, bowel sounds present. No tenderness to palpation. : Deferred. No Griffin. EXTREMITIES: No clubbing. Good capillary refill. SKIN: No skin breakdown. Vital Signs (last 8hr) Date Time Temp Pulse Resp B/P (MAP) Pulse Ox O2 Delivery O2 Flow Rate FiO2 09/09/24 16:00 98.8 66 18 128/55 97 Room Air 21 09/09/24 12:00 97.3 66 20 141/54 97 Room Air 21 LABS: Laboratory: Test 09/09/24 15:13 09/08/24 03:53 Range/Units Whole Blood Glucose 208 H 70-110 MG/DL White Blood Count 13.5 H 4.8-10.8 K/uL Red Blood Count 3.12 L 4.50-6.20 MIL/uL Hemoglobin 9.7 L 14.0-18.0 g/dL Hematocrit 28.2 L 42-54 % Mean Corpuscular Volume 90.4 79-99 fL Mean Corpuscular Hemoglobin 31.1 27.0-33.0 pg Mean Corpuscular Hemoglobin Concent 34.4 32.0-36.0 g/dL Red Cell Distribution Width 14.3 11.0-15.5 % Platelet Count 213 130-400 K/uL Mean Platelet Volume 10.1 7.5-10.5 fL Nucleated Red Blood Cells 0.0 0.0-0.19 % Sodium Level 136 136-145 mmol/L Potassium Level 3.3 L 3.5-5.1 mmol/L Chloride Level 102 101-111 mmol/L Carbon Dioxide Level 25 21-32 mmol/L Blood Urea Nitrogen 46 H 7-18 mg/dL Creatinine 2.4 H 0.5-1.3 mg/dL Glomerular Filtration Rate Calc 27 >90 mL/min Random Glucose 59 L 70-105 mg/dL Total Calcium 8.2 L 8.5-10.1 mg/dL Magnesium Level 1.90 1.80-2.40 mg/dL Total Bilirubin 0.3 0.2-1.0 mg/dL Aspartate Amino Transf (AST/SGOT) 17 10-37 U/L Alanine Aminotransferase (ALT/SGPT) 33 12-78 U/L Alkaline Phosphatase 55 50-136 U/L Total Protein 6.1 6.0-8.3 g/dL Albumin 2.7 L 3.5-5.0 g/dL Current Medications Medications (Trade) Dose Ordered Sig/Abhijit Route PRN Reason Start Time Stop Time Status Last Admin Dose Admin Acetaminophen (TYLenol 325MG TAB) 650 mg Q4H PRN PO MILD PAIN (1-3) 08/26/24 02:00 09/25/24 01:59 09/08/24 06:14 650 MG Acetaminophen (TYLenol 325MG TAB) 650 mg Q6H PRN PO TEMPERATURE GREATER THAN 101.5 08/26/24 02:00 09/25/24 01:59 09/09/24 01:08 650 MG Acetylcysteine (MUComyst 10% 4ML) 400mg = 4ml [id number] IH 09/03/24 00:00 09/05/24 13:40 DC 09/05/24 11:08 400 MG Albuterol (DUOneb) 1 udvial BIDRESP IH 09/05/24 18:00 09/25/24 01:59 Albuterol (DUOneb) 1 udvial [id number] IH 08/26/24 02:00 09/05/24 10:01 DC 09/05/24 06:28 1 UDVIAL Albuterol (DUOneb) 1 udvial [id number] IH 09/05/24 12:00 09/05/24 13:40 DC 09/05/24 11:07 1 UDVIAL Amlodipine Besylate (NorvASC 5MG TAB) 5 mg DAILY PO 08/27/24 09:00 08/27/24 07:12 DC Apixaban (EliquIS 2.5 mg) 2.5 mg BID PO 09/02/24 21:00 09/03/24 14:24 DC 09/02/24 21:38 2.5 MG Apixaban (EliquIS 2.5 mg) 2.5 mg BID PO 09/05/24 21:00 10/05/24 20:59 09/09/24 10:58 2.5 MG Apixaban (EliquIS) 5 mg BID PO 09/01/24 21:00 09/02/24 16:46 DC 09/02/24 08:56 5 MG Apixaban (EliquIS) 5 mg BID PO 09/03/24 21:00 09/03/24 14:19 DC Bisacodyl (DulcoLAX 5MG TAB) 5 mg BID PO 09/05/24 21:00 10/05/24 20:59 09/09/24 10:57 5 MG Budesonide (Pulmicort 0.5 Mg/2ml) 0.5 mg BIDRESP IH 08/26/24 18:00 09/05/24 13:42 DC 09/05/24 06:28 0.5 MG Cefepime HCl (MAXipime 2 gm vial) 2 gm Q12H IVPB 08/26/24 10:00 08/29/24 07:19 DC 08/28/24 23:16 2 GM Ceftriaxone Sodium 1 gm/ Sodium Chloride 50 ml @ 100 mls/hr BID IV 08/26/24 09:00 08/26/24 01:51 DC Ceftriaxone Sodium (ROCEphine 1G INJ) 1 gm BID IVPB 08/26/24 09:00 08/26/24 09:43 DC 08/26/24 09:15 1 GM Dextrose (D50w) 50 ml AD PRN IV HYPOGLYCEMIA PROTOCOL 08/26/24 02:00 09/25/24 01:59 09/05/24 05:22 50 ML Epoetin Eros-epbx (Retacrit) 10,000 unit QTU@1600 SQ 09/02/24 16:00 10/02/24 15:59 09/02/24 16:38 10,000 UNIT Furosemide (LASix 20MG TAB) 20 mg BID PO 09/02/24 21:00 09/02/24 17:14 DC Furosemide (LASix 20MG TAB) 20 mg BID@ PO 09/03/24 17:00 09/05/24 11:36 DC 09/05/24 10:02 20 MG Furosemide (LASix 20MG VIAL) 20 mg Q8H IV 09/05/24 12:00 10/05/24 11:59 09/09/24 14:52 20 MG Glucagon (Glucagon 1mg Kit) 1 mg AD PRN IM HYPOGLYCEMIA PROTOCOL 08/26/24 02:00 09/08/24 19:58 DC Guaifenesin/ Dextromethorphan (RobiTUSSin DM 200/20MG 10ML) 10 ml Q6H PRN PO COUGH 08/31/24 10:30 09/30/24 10:29 Heparin Sodium (Porcine) (HEParin 5,000 UNIT VIAL) 5,000 unit Q12H SQ 08/26/24 21:30 09/01/24 09:57 DC 09/01/24 09:03 5,000 UNIT Hydralazine HCl (APRESOLine 20MG INJ) 10 mg Q6H PRN IV For:SBP above 160;DBP above 90 08/26/24 02:00 09/25/24 01:59 09/07/24 21:09 10 MG Hydralazine HCl ([id number] TAB) 25 mg TID PO 08/26/24 09:00 08/27/24 07:12 DC 08/26/24 21:08 25 MG Hydralazine HCl ([id number] TAB) 50 mg TID PO 08/28/24 09:00 08/28/24 11:31 DC Hydralazine HCl ([id number] TAB) 50 mg TID PO 08/28/24 14:00 09/27/24 13:59 09/09/24 14:54 50 MG Hydralazine HCl ([id number] TAB) 100 mg TID PO 08/27/24 09:00 08/28/24 07:38 DC 08/27/24 09:22 100 MG Hydrochlorothiazide (hydroCHLOROthiazide 25MG) 25 mg DAILY PO 08/29/24 09:00 08/28/24 12:07 DC Insulin Glargine (LANtus 100 UNITS/ML 10 ML VIAL) 10 units BID@0730,2100 SQ 08/29/24 07:30 09/28/24 07:29 09/09/24 06:15 10 UNITS Insulin Human Regular (humuLIN R 100 UNIT/ML 3ML) INSULIN SLIDING SCAL... ACHS SQ 08/26/24 07:30 09/25/24 07:29 09/09/24 14:53 2 UNIT Labetalol HCl (TRANdate 20MG SYG) 10 mg Q6H PRN IV IF SBP GREATER THAN 170 08/26/24 02:00 09/25/24 01:59 08/27/24 05:41 10 MG Lactulose (Constulose 20gm/ 30ml Udcup) 20 gm BID PRN PO CONSTIPATION 08/31/24 13:00 09/30/24 12:59 09/01/24 20:04 20 GM Losartan Potassium (CozAAR 50 mg TAB) 50 mg BID PO 08/27/24 09:00 08/31/24 10:00 DC 08/31/24 09:46 50 MG Magnesium Sulfate 50 ml @ 0 mls/hr PROTOCOL IV 09/06/24 09:30 10/06/24 09:29 09/08/24 05:07 25 MLS/HR Magnesium Sulfate 50 ml @ 0 mls/hr PROTOCOL PRN IV OTHER [SEE ORDER COMMENTS] 08/26/24 02:00 09/06/24 09:32 DC 09/06/24 06:05 25 MLS/HR Melatonin (Melatonin) 5 mg HSPRN PRN PO INSOMNIA 09/01/24 23:00 10/01/24 22:59 09/08/24 20:24 5 MG Methylprednisolone Sodium Succinate (Solu-medROL 40MG) 20 mg Q8H IVP 08/29/24 06:00 08/31/24 12:05 DC 08/31/24 06:33 20 MG Methylprednisolone Sodium Succinate (Solu-medROL 40MG) 40 mg BID IVP 08/27/24 21:00 08/28/24 20:59 DC 08/28/24 09:24 40 MG Metoprolol Tartrate (loprESSOR) 100 mg BID PO 08/26/24 09:00 09/25/24 08:59 09/09/24 10:57 100 MG Montelukast Sodium (SinguLAIR) 10 mg DAILY PO 08/27/24 09:00 09/26/24 08:59 09/09/24 10:58 10 MG Morphine Sulfate (morPHINE 2MG SYG) 2 mg Q4H PRN IV MODERATE PAIN (4-6) 08/26/24 02:00 08/31/24 04:59 DC 08/26/24 06:37 2 MG Nicardipine HCl 20 mg/Sodium Chloride 200 ml @ 0 mls/hr AD PRN IV TITRATE 08/26/24 03:00 08/26/24 02:45 DC Nicardipine HCl 25 mg/Sodium Chloride 250 ml @ 0 mls/hr AD PRN IV TITRATE 08/26/24 03:00 08/27/24 18:03 DC 08/27/24 06:46 50 MLS/HR Nifedipine (adALAT 30MG) 30 mg BID PO 08/28/24 09:00 09/27/24 08:59 09/09/24 10:57 30 MG Nifedipine (adALAT 30MG) 60 mg BID PO 08/27/24 09:00 08/28/24 07:38 DC 08/27/24 07:42 60 MG Nystatin (NystOP 15 GM POWDER) 1 APPLICATION BID TP 09/05/24 21:00 10/05/24 20:59 09/09/24 11:00 1 APPL Ondansetron HCl (zoFRAN 4MG INJ) 4 mg Q6H PRN IV NAUSEA/VOMITING 08/26/24 02:00 09/25/24 01:59 Pantoprazole Sodium (PROTonix 40MG INJ) 40 mg DAILY IVP 08/27/24 09:00 09/26/24 08:59 09/09/24 10:52 40 MG Polyethylene Glycol/ Electrolytes (Golytely/Colyte Soln) 4,000 ml ONCE PO 09/05/24 12:30 09/05/24 13:30 DC 09/05/24 13:52 4,000 ML Potassium Chloride 100 ml @ 100 mls/hr AD PRN IV POTASSIUM PROTOCOL 08/26/24 02:00 09/25/24 01:59 Potassium Chloride (K-Dur 10meq Sr Tab) 10 meq AD PRN PO POTASSIUM PROTOCOL 08/26/24 18:00 09/25/24 01:59 09/08/24 16:34 10 MEQ Potassium Chloride (K-Dur/Klor-Con 20meq) 10 meq AD PRN PO POTASSIUM PROTOCOL 08/26/24 02:00 08/26/24 17:48 DC Potassium Chloride (KCl 10% Elixir 20meq/15ml) 10 meq AD PRN PO POTASSIUM PROTOCOL 08/26/24 02:00 09/25/24 01:59 09/06/24 06:05 10 MEQ Sodium Bicarbonate (Sodium Bicarbonate) 650 mg TID PO 08/28/24 14:00 09/03/24 09:15 DC 09/02/24 21:37 650 MG Sodium Chloride 1,000 ml @ 50 mls/hr Q20H IV 08/26/24 21:00 08/27/24 13:59 DC 08/26/24 21:08 50 MLS/HR Tamsulosin HCl (FloMAX) 0.4 mg BID PO 08/26/24 21:00 09/25/24 20:59 09/09/24 10:58 0.4 MG Vancomycin HCl 250 ml @ 125 mls/hr Q24H IV 08/27/24 12:00 08/29/24 07:19 DC 08/28/24 11:27 125 MLS/HR Vancomycin HCl (Vancomycin Protocol) 1 each AD IV 08/26/24 10:00 08/29/24 07:19 DC Vitamin B Complex/ Vit C/Folic Acid (Nephrovite Tablet) 1 cap DAILY PO 08/26/24 09:00 09/25/24 08:59 09/09/24 10:57 1 CAP Wound Care/ Dressing Products (Venelex Ointment) 1 APPL TID TP 08/26/24 21:00 09/25/24 20:59 09/09/24 14:54 1 GM DIAGNOSTICS / RADIOLOGY: [ ] ASSESSMENT: Sepsis POA Possible pyelonephritis POA Acute kidney injury POA Kidney stone POA Hypertensive urgency POA Acute normocytic normochromic anemia POA Acute leukocytosis POA CHF POA Debility POA Diabetes POA Hyponatremia POA Dehydration POA Hyperlipidemia POA 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 Atrial fibrillation on chronic anticoagulation POA Sacral ulcer POA Abdominal distention, possible ileus versus concern for sigmoid volvulus Urinary retention with indwelling Griffin catheter in place PLAN: Patient remains admitted to the medical floor Continue full liquid diet advanced as tolerated Discussed with case management, reauthorization submitted for discharge plan to SNF Continue colon tube with lactulose infusions Continue eliquis 2.5mg BID Continue Furosemide 20mg TID Continue glargine 10U BID Contiunue sliding scale, wean as able Continue nifedipine 30mg BID Continue tamsulosin 0.4mg BID Continue metoprolol 100mg BID Disposition: Pending rehab placement All questions answered time spent: > 35 min AYDEE CARRANZA MD Sep 09, 2024 18:20
--- NOTE | 2024-09-09 20:00 | NUR ---
AMBULATION: PT SITTING IN BEDSIDE CHAIR. 2 PEOPLE MAX ASSIST PT TO GET BACK IN TO BED USING WALKER. PT HAS WEAKNESS TO LOWER EXTREMITIES. PT COMFORTABLE IN BED, SIDE RAILS UP X 3, BED ALARM IN PLACE, CALL [facility] WITHIN REACH.
[2024-09-10] VITALS (10 sets, daily range): BP systolic 112–162; BP diastolic 51–87; PULSE 69–75; RESP 16–22; TEMP 98.1–100; O2SAT 95–96
[2024-09-10 06:05] LABS: BASOPHILS # (AUTO) 0.02 K/uL (0.00-0.20); BASOPHILS % (AUTO) 0.1 % (0.0-5.0); EOSINOPHILS # (AUTO) 0.02 K/uL (0.00-0.70); EOSINOPHILS % (AUTO) 0.1 % (0.0-8.0); IMMATURE GRANULOCYTE ABSOLUTE 0.12 K/uL (0-1); LYMPHOCYTES # (AUTO) 1.3 K/uL (1.0-4.8); LYMPHOCYTES % (AUTO) 8.4 % (21.0-51.0); MEAN CORPUSCULAR HEMOGLOBIN 29.9 pg (27.0-33.0); MEAN CORPUSCULAR HGB CONC 33.5 g/dL (32.0-36.0); MEAN CORPUSCULAR VOLUME 89.3 fL (79-99); MONOCYTES # (AUTO) 1.1 K/uL (0.1-1.0); MONOCYTES % (AUTO) 7.1 % (3.0-13.0); NEUTROPHILS # (AUTO) 12.6 K/uL (1.8-7.7); NEUTROPHILS % (AUTO) 83.5 % (40.0-77.0); PLATELET COUNT (AUTO) 175 K/uL (130-400); RED BLOOD CELL COUNT(AUTO) 2.91 MIL/uL (4.50-6.20); RED CELL DISTRIBUTION WIDTH 14.2 % (11.0-15.5); WHITE BLOOD COUNT (AUTO) 15.1 K/uL (4.8-10.8)
[2024-09-10 06:17] LABS: CREATININE 2.3 mg/dL (0.5-1.3); MAGNESIUM 1.6 mg/dL (1.80-2.40); PHOSPHORUS 2.3 mg/dL (2.5-4.9); POTASSIUM 3.4 mmol/L (3.5-5.1)
[2024-09-10] MEDS: ceFEPime HCL 2 GM VIAL IVPB SCH (06:30)
[2024-09-10 06:52] LABS: CREATININE 2.3 mg/dL (0.5-1.3); POTASSIUM 3.2 mmol/L (3.5-5.1)
[2024-09-10 06:57] LABS: ALBUMIN 2.1 g/dL (3.5-5.0); BILIRUBIN,TOTAL 0.5 mg/dL (0.2-1.0); TOTAL PROTEIN, SERUM 5.4 g/dL (6.0-8.3)
--- NOTE | 2024-09-10 09:38 | PN ---
FOLLOWUP PROGRESS NOTE SUBJECTIVE: An 78-year-old male with history of diabetes mellitus and hypertension. He has a history of coronary artery disease. The patient has a history of known chronic renal insufficiency. The patient initially presented with significant volume overload, which has improved. The patient with debilitation and he is being seen by case management in regards to placement back at the shelter. The patient's creatinine has been fairly stable and he is being seen as a followup visit for all of the above. REVIEW OF SYSTEMS: CONSTITUTIONAL: The patient is feeling weak and tired. HEENT: No change in vision. No change in hearing. CARDIOVASCULAR: There is no current chest pain or palpitations. PULMONARY: There is no shortness of breath. GASTROINTESTINAL: He is tolerating a diet. MUSCULOSKELETAL: Complains of weakness. PHYSICAL EXAMINATION: VITAL SIGNS: Blood pressure 116/87, pulse 70s. He is afebrile. GENERAL: Chronically ill male, elderly, lying in bed on the medical floor. HEENT: Head is atraumatic. Pupils are equal, roving to light. Oropharynx is without exudate. Nares clear. NECK: There is no JVP. There is no thyromegaly, no mass. CARDIOVASCULAR: Regular. There is no S3 or S4 gallop. LUNGS: Coarse with equal thoracic movement. ABDOMEN: Soft, nondistended, and nontender. EXTREMITIES: Reveal no clubbing, no cyanosis. NEUROLOGICAL: He is awake. He is alert. LABORATORY DATA: Sodium 133, potassium 3.2, BUN 42, creatinine is 2.3. Hemoglobin 8.7, hematocrit 26, white blood cell count is 15,000. IMPRESSION: * Acute on chronic renal failure. * CHF. * Diabetes mellitus. * Obstructive uropathy. PLAN: The patient's creatinine continues to stabilize. The patient's family now has agreed to placement in shelter. The patient is being seen by case management. He will continue with the Griffin catheter upon discharge to home. He remains on the diuretics. We will follow closely. TID: [id number] RECEIPT: [id number]
--- NOTE | 2024-09-10 13:46 | PN ---
GASTROENTEROLOGY PROGRESS NOTE Date of Visit: Sep 10, 2024 Time of Visit: 13:46 Events / Notes: No acute events overnight. s/p flex sig with insertion of decompression rectal tube. Patient was given golytely. Abdomen soft and nontender. Review of Systems: CONSTITUTIONAL: No malaise or change in sensation of wellbeing. ENMT: No rhinorrhea, otorrhea, sinus pain, ear ache. CARDIOVASCULAR: No angina, palpitations, orthopnea or paroxysmal dyspnea. RESPIRATORY: No SOB. GASTROINTESTINAL: No abdominal pain, nausea, vomiting, diarrhea, hematemesis, melena or change in the patient's habitual bowel movements consistency/number. GENITOURINARY: No dysuria, hematuria or change in bladder continence. MUSCULOSKELETAL: No new muscle pain or decrease in muscular strength. No new joint swelling, redness or tenderness. SKIN: No new rash. Physical Exam: GEN: Awake, alert, oriented in person, time and place, and in no acute distress. HEENT: No sinus tenderness. Tympanic membranes were not examined. No rhinorrhea. Oral pharyngeal mucosa is pink, moist and within normal limits. Neck is supple with no cervical lymphadenopathy, thyromegaly or JVD. CHEST: Inspection, palpation and percussion of the chest were unremarkable. Lung auscultation revealed normal breath sounds bilaterally. CARDIAC: PMI is within normal limits. Heart sounds are regular. Normal S1, S2. No gallop or murmur. ABD: Soft, non-tender and not distended. No peritoneal signs on palpation. No organomegaly. Normal bowel sounds. EXT: No cyanosis or clubbing. No edema. SKIN: Intact. No rashes. JOINTS: No evidence of synovitis or acute arthritis. NEURO: Alert and oriented to name, place and person. Cranial nerve examination is unremarkable. No focal motor deficits. Normal speech. Gait is normal. Strength is normal. Vital Signs (last 8hr) Date Time Temp Pulse Resp B/P (MAP) Pulse Ox O2 Delivery O2 Flow Rate FiO2 09/10/24 12:00 98.4 69 16 112/52 96 Room Air 09/10/24 08:00 99.3 73 18 158/51 95 Room Air 09/10/24 06:50 72 18 N/A Room Air 21 Laboratory: [ ] Laboratory: Test 09/10/24 11:03 09/10/24 06:39 09/10/24 05:54 Range/Units Whole Blood Glucose 153 #H 70-110 MG/DL Sodium Level 133 L 136-145 mmol/L Potassium Level 3.2 L 3.5-5.1 mmol/L Chloride Level 100 L 101-111 mmol/L Carbon Dioxide Level 24 21-32 mmol/L Blood Urea Nitrogen 42 H 7-18 mg/dL Creatinine 2.3 H 0.5-1.3 mg/dL Glomerular Filtration Rate Calc 28 >90 mL/min Random Glucose 94 70-105 mg/dL Lactic Acid Level 0.9 0.8-2.5 mmol/L Total Calcium 8.0 L 8.5-10.1 mg/dL Total Bilirubin 0.5 0.2-1.0 mg/dL Aspartate Amino Transf (AST/SGOT) 14 10-37 U/L Alanine Aminotransferase (ALT/SGPT) 23 12-78 U/L Alkaline Phosphatase 53 50-136 U/L Total Protein 5.4 L 6.0-8.3 g/dL Albumin 2.1 L 3.5-5.0 g/dL White Blood Count 15.1 H 4.8-10.8 K/uL Red Blood Count 2.91 L 4.50-6.20 MIL/uL Hemoglobin 8.7 L 14.0-18.0 g/dL Hematocrit 26.0 L 42-54 % Mean Corpuscular Volume 89.3 79-99 fL Mean Corpuscular Hemoglobin 29.9 27.0-33.0 pg Mean Corpuscular Hemoglobin Concent 33.5 32.0-36.0 g/dL Red Cell Distribution Width 14.2 11.0-15.5 % Platelet Count 175 130-400 K/uL Mean Platelet Volume 10.1 7.5-10.5 fL Immature Granulocyte % (Auto) 0.8 0-1 % Neutrophils (%) (Auto) 83.5 H 40.0-77.0 % Lymphocytes (%) (Auto) 8.4 L 21.0-51.0 % Monocytes (%) (Auto) 7.1 3.0-13.0 % Eosinophils (%) (Auto) 0.1 0.0-8.0 % Basophils (%) (Auto) 0.1 0.0-5.0 % Neutrophils # (Auto) 12.6 H 1.8-7.7 K/uL Lymphocytes # (Auto) 1.3 1.0-4.8 K/uL Monocytes # (Auto) 1.1 H 0.1-1.0 K/uL Eosinophils # (Auto) 0.02 0.00-0.70 K/uL Basophils # (Auto) 0.02 0.00-0.20 K/uL Absolute Immature Granulocyte (auto 0.12 0-1 K/uL Nucleated Red Blood Cells 0.0 0.0-0.19 % White Cell Morphology Comment See comments Phosphorus Level 2.3 L 2.5-4.9 mg/dL Magnesium Level 1.60 L 1.80-2.40 mg/dL Vitamin B12 Level 569 193-986 pg/mL Current Medications Medications (Trade) Dose Ordered Sig/Abhijit Route PRN Reason Start Time Stop Time Status Last Admin Dose Admin Acetaminophen (TYLenol 325MG TAB) 650 mg Q4H PRN PO MILD PAIN (1-3) 08/26/24 02:00 09/25/24 01:59 09/10/24 05:10 650 MG Acetaminophen (TYLenol 325MG TAB) 650 mg Q6H PRN PO TEMPERATURE GREATER THAN 101.5 08/26/24 02:00 09/25/24 01:59 09/09/24 01:08 650 MG Acetylcysteine (MUComyst 10% 4ML) 400mg = 4ml [id number] 09/03/24 00:00 09/05/24 13:40 DC 09/05/24 11:08 400 MG Albuterol (DUOneb) 1 udvial BIDRESP 09/05/24 18:00 09/25/24 01:59 Albuterol (DUOneb) 1 udvial [id number] 08/26/24 02:00 09/05/24 10:01 MI 09/05/24 06:28 1 UDVIAL Albuterol (DUOneb) 1 udvial [id number] 09/05/24 12:00 09/05/24 13:40 DC 09/05/24 11:07 1 UDVIAL Amlodipine Besylate (NorvASC 5MG TAB) 5 mg DAILY PO 08/27/24 09:00 08/27/24 07:12 DC Apixaban (EliquIS 2.5 mg) 2.5 mg BID PO 09/02/24 21:00 09/03/24 14:24 DC 09/02/24 21:38 2.5 MG Apixaban (EliquIS 2.5 mg) 2.5 mg BID PO 09/05/24 21:00 10/05/24 20:59 09/10/24 09:02 2.5 MG Apixaban (EliquIS) 5 mg BID PO 09/01/24 21:00 09/02/24 16:46 DC 09/02/24 08:56 5 MG Apixaban (EliquIS) 5 mg BID PO 09/03/24 21:00 09/03/24 14:19 DC Bisacodyl (DulcoLAX 5MG TAB) 5 mg BID PO 09/05/24 21:00 10/05/24 20:59 09/10/24 09:03 5 MG Budesonide (Pulmicort 0.5 Mg/2ml) 0.5 mg BIDRESP IH 08/26/24 18:00 09/05/24 13:42 DC 09/05/24 06:28 0.5 MG Cefepime HCl (MAXipime 2 gm vial) 2 gm Q12H IVPB 08/26/24 10:00 08/29/24 07:19 DC 08/28/24 23:16 2 GM Cefepime HCl (MAXipime 2 gm vial) 2 gm Q24H IVPB 09/10/24 06:30 09/20/24 06:29 09/10/24 06:30 2 GM Ceftriaxone Sodium 1 gm/ Sodium Chloride 50 ml @ 100 mls/hr BID IV 08/26/24 09:00 08/26/24 01:51 DC Ceftriaxone Sodium (ROCEphine 1G INJ) 1 gm BID IVPB 08/26/24 09:00 08/26/24 09:43 DC 08/26/24 09:15 1 GM Dextrose (D50w) 50 ml AD PRN IV HYPOGLYCEMIA PROTOCOL 08/26/24 02:00 09/25/24 01:59 09/05/24 05:22 50 ML Epoetin Eros-epbx (Retacrit) 10,000 unit QTU@1600 SQ 09/02/24 16:00 10/02/24 15:59 09/09/24 18:37 10,000 UNIT Furosemide (LASix 20MG TAB) 20 mg BID PO 09/02/24 21:00 09/02/24 17:14 DC Furosemide (LASix 20MG TAB) 20 mg BID@09,17 PO 09/03/24 17:00 09/05/24 11:36 DC 09/05/24 10:02 20 MG Furosemide (LASix 20MG VIAL) 20 mg Q8H IV 09/05/24 12:00 10/05/24 11:59 09/10/24 04:34 20 MG Glucagon (Glucagon 1mg Kit) 1 mg AD PRN IM HYPOGLYCEMIA PROTOCOL 08/26/24 02:00 09/08/24 19:58 DC Guaifenesin/ Dextromethorphan (RobiTUSSin DM 200/20MG 10ML) 10 ml Q6H PRN PO COUGH 08/31/24 10:30 09/30/24 10:29 Heparin Sodium (Porcine) (HEParin 5,000 UNIT VIAL) 5,000 unit Q12H SQ 08/26/24 21:30 09/01/24 09:57 DC 09/01/24 09:03 5,000 UNIT Hydralazine HCl (APRESOLine 20MG INJ) 10 mg Q6H PRN IV For:SBP above 160;DBP above 90 08/26/24 02:00 09/25/24 01:59 09/07/24 21:09 10 MG Hydralazine HCl ([id number] TAB) 25 mg TID PO 08/26/24 09:00 08/27/24 07:12 DC 08/26/24 21:08 25 MG Hydralazine HCl ([id number] TAB) 50 mg TID PO 08/28/24 09:00 08/28/24 11:31 DC Hydralazine HCl ([id number] TAB) 50 mg TID PO 08/28/24 14:00 09/27/24 13:59 09/10/24 09:03 50 MG Hydralazine HCl ([id number] TAB) 100 mg TID PO 08/27/24 09:00 08/28/24 07:38 DC 08/27/24 09:22 100 MG Hydrochlorothiazide (hydroCHLOROthiazide 25MG) 25 mg DAILY PO 08/29/24 09:00 08/28/24 12:07 DC Insulin Glargine (LANtus 100 UNITS/ML 10 ML VIAL) 10 units BID@0730,2100 SQ 08/29/24 07:30 09/28/24 07:29 09/10/24 06:37 10 UNITS Insulin Human Regular (humuLIN R 100 UNIT/ML 3ML) INSULIN SLIDING SCAL... ACHS SQ 08/26/24 07:30 09/25/24 07:29 09/09/24 20:47 3 UNIT Labetalol HCl (TRANdate 20MG SYG) 10 mg Q6H PRN IV IF SBP GREATER THAN 170 08/26/24 02:00 09/25/24 01:59 08/27/24 05:41 10 MG Lactulose (Constulose 20gm/ 30ml Udcup) 20 gm BID PRN PO CONSTIPATION 08/31/24 13:00 09/30/24 12:59 09/01/24 20:04 20 GM Losartan Potassium (CozAAR 50 mg TAB) 50 mg BID PO 08/27/24 09:00 08/31/24 10:00 DC 08/31/24 09:46 50 MG Magnesium Sulfate 50 ml @ 0 mls/hr PROTOCOL IV 09/06/24 09:30 10/06/24 09:29 09/10/24 09:01 25 MLS/HR Magnesium Sulfate 50 ml @ 0 mls/hr PROTOCOL PRN IV OTHER [SEE ORDER COMMENTS] 08/26/24 02:00 09/06/24 09:32 DC 09/06/24 06:05 25 MLS/HR Melatonin (Melatonin) 5 mg HSPRN PRN PO INSOMNIA 09/01/24 23:00 10/01/24 22:59 09/09/24 21:14 5 MG Methylprednisolone Sodium Succinate (Solu-medROL 40MG) 20 mg Q8H IVP 08/29/24 06:00 08/31/24 12:05 DC 08/31/24 06:33 20 MG Methylprednisolone Sodium Succinate (Solu-medROL 40MG) 40 mg BID IVP 08/27/24 21:00 08/28/24 20:59 DC 08/28/24 09:24 40 MG Metoprolol Tartrate (loprESSOR) 100 mg BID PO 08/26/24 09:00 09/25/24 08:59 09/10/24 09:02 100 MG Montelukast Sodium (SinguLAIR) 10 mg DAILY PO 08/27/24 09:00 09/26/24 08:59 09/10/24 09:02 10 MG Morphine Sulfate (morPHINE 2MG SYG) 2 mg Q4H PRN IV MODERATE PAIN (4-6) 08/26/24 02:00 08/31/24 04:59 DC 08/26/24 06:37 2 MG Nicardipine HCl 20 mg/Sodium Chloride 200 ml @ 0 mls/hr AD PRN IV TITRATE 08/26/24 03:00 08/26/24 02:45 DC Nicardipine HCl 25 mg/Sodium Chloride 250 ml @ 0 mls/hr AD PRN IV TITRATE 08/26/24 03:00 08/27/24 18:03 DC 08/27/24 06:46 50 MLS/HR Nifedipine (adALAT 30MG) 30 mg BID PO 08/28/24 09:00 09/27/24 08:59 09/10/24 09:03 30 MG Nifedipine (adALAT 30MG) 60 mg BID PO 08/27/24 09:00 08/28/24 07:38 DC 08/27/24 07:42 60 MG Nystatin (NystOP 15 GM POWDER) 1 APPLICATION BID TP 09/05/24 21:00 10/05/24 20:59 09/10/24 09:03 1 APPL Ondansetron HCl (zoFRAN 4MG INJ) 4 mg Q6H PRN IV NAUSEA/VOMITING 08/26/24 02:00 09/25/24 01:59 Pantoprazole Sodium (PROTonix 40MG INJ) 40 mg DAILY IVP 08/27/24 09:00 09/26/24 08:59 09/10/24 09:02 40 MG Polyethylene Glycol/ Electrolytes (Golytely/Colyte Soln) 4,000 ml ONCE PO 09/05/24 12:30 09/05/24 13:30 DC 09/05/24 13:52 4,000 ML Potassium Chloride 100 ml @ 100 mls/hr AD PRN IV POTASSIUM PROTOCOL 08/26/24 02:00 09/25/24 01:59 Potassium Chloride (K-Dur 10meq Sr Tab) 10 meq AD PRN PO POTASSIUM PROTOCOL 08/26/24 18:00 09/25/24 01:59 09/10/24 12:34 10 MEQ Potassium Chloride (K-Dur/Klor-Con 20meq) 10 meq AD PRN PO POTASSIUM PROTOCOL 08/26/24 02:00 08/26/24 17:48 DC Potassium Chloride (KCl 10% Elixir 20meq/15ml) 10 meq AD PRN PO POTASSIUM PROTOCOL 08/26/24 02:00 09/25/24 01:59 09/06/24 06:05 10 MEQ Sodium Bicarbonate (Sodium Bicarbonate) 650 mg TID PO 08/28/24 14:00 09/03/24 09:15 DC 09/02/24 21:37 650 MG Sodium Chloride 1,000 ml @ 50 mls/hr Q20H IV 08/26/24 21:00 08/27/24 13:59 DC 08/26/24 21:08 50 MLS/HR Tamsulosin HCl (FloMAX) 0.4 mg BID PO 08/26/24 21:00 09/25/24 20:59 09/10/24 09:02 0.4 MG Vancomycin HCl 250 ml @ 125 mls/hr Q24H IV 08/27/24 12:00 08/29/24 07:19 DC 08/28/24 11:27 125 MLS/HR Vancomycin HCl (Vancomycin Protocol) 1 each AD IV 08/26/24 10:00 08/29/24 07:19 DC Vitamin B Complex/ Vit C/Folic Acid (Nephrovite Tablet) 1 cap DAILY PO 08/26/24 09:00 09/25/24 08:59 09/10/24 09:02 1 CAP Wound Care/ Dressing Products (Venelex Ointment) 1 APPL TID TP 08/26/24 21:00 09/25/24 20:59 09/10/24 09:03 60 GM Diagnostics / Radiology: [COPY/PASTE HERE IF NO REPORTS PLEASE DELETE SECTION] Assessment: Abnormal imaging with dilated loops of colon Plan: Patient cleared for discharge EDWIN LAGOS NURSE'S COMPANION Sep 10, 2024 13:46
--- NOTE | 2024-09-10 14:47 | PN ---
[facility] PROGRESS NOTE Date of Service: Sep 10, 2024 Time of Service: 14:45 SUBJECTIVE: 08/27 Pt seen at bedside, no acute events overnight. Pt weaned off cardene drip, started on PO medications. Will monitor throughout the day and possibly dc tomorrow if BP remains stable 08/28 Pt seen at bedside, no acute events overnight. Pt blood pressure well controlled however he has significant wheeze, rhoncous breathing and cough. Will continue with nebulizers and systemic steroid treatment. CO2 low, will order ABG and follow up. Pt mildly delirius today but responds appropriately 08/29 patient seen at bedside, no acute events overnight. He is still has prominent wheeze and rhonchus breathing. There was no evidence of pneumonia on initial workup, chest x-ray was clear and procalcitonin was in normal range. We will discontinue antibiotics at this time and continue with nebulizers and syste lazaro steroids. As patient has been somewhat confused holding cefepime may help improve his mental status however he is also on systemic steroids which can also contribute to some delirium. Physical therapy recommending [facility] for rehab, we will consult case management for placement. Patient blood sugars have been elevated we will start glargine 10 units twice daily. Creatinine increased from 2.3 up to 2.8, patient was started on bicarbonate yesterday, we will continue to monitor his urine output. 08/30 patient seen at bedside, no acute events overnight. His wheeze has improved significantly today, he is sitting at bedside on room air now. We will continue with nebulizers and systemic steroids. He is pending placement to [facility]. 08/31 patient seen at bedside, no acute events overnight. He has no complaints at bedside, breathing appears to be improved, he continues on room air. Family recommending [facility] placement. His BUN/creatinine continue to up trend to 91 and 3.4. He has no history of heart failure, we will bolus 1 L and follow up with his renal function tomorrow. Nephrology consulted for further recommendations. 09/01 blood pressure 126/45, afebrile, saturating normal on room air. CBC shows a hemoglobin of 8.6, hematocrit 25.4, WBC of 12.3, platelet count of 252. Sodium 137, potassium 3.2, BUN of 93, creatinine of 3.3, bicarb of 20. ABG with a pH of 7.37, pCO2 24, bicarbonate of 13.8. Currently the patient on sodium bicarbonate 650 mg p.o. t.i.d.. Nephrology consultation requested, continue to follow input and recommendations. Family recommended [facility] facility, we will discuss with case management. 09/02 patient's blood pressure 162/56, afebrile, saturating normal on room air. Case discussed with the RN, patient has a large bowel movement this morning, he feels hungry. During my visit he is comfortable sitting in the chair, he feels less distended and better today compared to yesterday. Denies nausea, no vomiting, no abdominal pain. BP done yesterday was showing abnormal bowel gas pattern, ileus favored over low colon obstruction. CT of the abdomen showing mildly dilated air-filled loops of colon, no transition some findings most consistent with gastroenteritis or ileus, no transition zone to suggest ob struction, moderate bilateral renal cortical thinning, minimal bilateral pleural effusions. Surgical consultation requested, we will follow input and recommendation, we will repeat KUB, we will possibly start clear liquid diet. Patient is still with urinary retention, we will attempt to insert Griffin catheter today, if unable we will request Urology consult. Patient noted to have mild bilateral lower extremity edema, we will start Lasix 20 mg p.o. b.i.d.. 09/03 the patient remains admitted to the medical floor, case discussed with the RN, the patient back in the room, unable to lie flat for the Gastrografin enema per surgery recommendation. During my visit patient awake, following commands, not in distress. He remains hemodynamically stable. Hemoglobin 9.3, currently tolerating diet, passing gas. Patient evaluated by General surgery, abdominal distention concerning for sigmoid volvulus. Case discussed with the surgery, GI consulted for decompressive sigmoidoscopy, case discussed, plan to do tomorrow. 09/04 patient is seen and examined at bedside, back in the room, per discussion with the RN, refused flexible sigmoidoscopy. He is alert oriented x3, discussed with the patient the importance of having the procedure done, however the patient refused, he stated that he does not want any further medical management, he wants to go back to [facility] facility with the hospice services. He is a DNR/DNI. We will discuss with the daughter she is available at bedside. 09/05 patient remains admitted to the medical floor, long discussion was done yesterday with the patient in the room in front of her daughter, regarding the importance of having the flexible sigmoidoscopy done. I discussed with the patient that if he refused, and he wanted to go to the [facility] facility with hospice services I could arrange for that per records not start him on a diet until we will rule out the possibility of volvulus. After a very long discussion the the patient agreed to have the flexible sigmoidoscopy. Today blood pressure 160/64, afebrile, saturating normal on room air. Hemoglobin stable 10.1, hematocrit 29.7. During my visit the patient is back in the room from having flexible sigmoidoscopy, with the following findings: -the perianal and digital rectal examination were normal. Solid stool was found in the rectum, in the sigmoid colon, in the descending colon and in the transfer colon, interfering with a fistulization. Lavage of the area was performed, resulting in incomplete clearance with continued poor visualization. A colonic decompression tube was placed. Impression: -preparation of the colon was poor. -stool in the rectum, in the sigmoid colon, in the descending colon and in the transverse colon. -no specimens collected. Recommendations: -[facility] to [facility] care -clear liquid diet -continue present medications -obtain KUB -give GoLYTELY 500 cc per colon tube every 4 hours -start bisacodyl 5 mg p.o. b.i.d. KUB REVIEWED, GASEOUS DISTENTION OF THE COLON, EXPECTED ON BASIS OF RECENT CO LONOSCOPY, NO SIGNIFICANT ABNORMALITIES OTHERWISE. 09/06 patient is seen and examined at bedside, case discussed with the RN, no acute events overnight, patient resting comfortable in bed, abdomen is more soft, tolerating clear liquid diet. Patient had good bowel movement after GoLYTELY 500 cc per: Tube giving every 4 hours and starting bisacodyl, we will advance diet to full liquid diet. Case management consulted, authorization recent for the patient to get approved to [facility] facility. Discussed with the patient. 09/07 patient is seen and examined at bedside, case discussed with the RN, no acute events overnight, passing gas, moving bowel. Recent KUB and CT of the abdomen, possible ileus versus small-bowel obstruction, surgical consultation requested, concern for possible volvulus, patient initially refused Gastrografin enema, GI consultation requested, flexible sigmoidoscopy done,stool in the rectum, in the sigmoid colon, in the descending colon and in the transverse colon. Recommended give GoLYTELY 500 cc per colon tube every 4 hours for 2 days and bisacodyl 5 mg p.o. b.i.d. continue to follow GI input and recommendation. Patient with a mild anasarca, Lasix increased to 20 mg IV q.8 hours, improved. Discussed with case management, reauthorization submitted for SNF placement. 09/08 No acute events overnight. Colon tube still in place, will follow up with GI regarding when to remove. Last reported BM yesterday. Pending SNF placement once cleared 09/09 Pt initially discharged however he was unable to transfer to chair and asked for placement to rehab. Case management to assist 09/10 no acute events overnight. Patient to continue with PT/OT. WBC uptrending, will start cefepime and order lactic acid. Potassium low at 3.2, will replete according to protocol. Continue rehab with PT/OT, pending placement REVIEW OF SYSTEMS 12 point ROS negative unless noted in HPI PHYSICAL EXAM GENERAL APPEARANCE: The patient is awake, alert, and oriented, in no acute cardiopulmonary distress. NEUROLOGICAL: Cranial nerves II-XII grossly intact. Motor is 5/5 in bilateral upper and lower extremities proximal to distal. No sensory deficits. HEENT: Face is symmetric. Pupils are equal and reactive. Extraocular movements are intact. NECK: Supple. No JVD. No thyromegaly. No submental, submandibular, pre- /postauricular, occipital or supraclavicular lymphadenopathy. CHEST: Normal chest expansion. No Telemetry. LUNGS: no wheezing, no rhonchi, no rales CARDIOVASCULAR: Regular. S1 and S2 normal. No appreciable rubs, murmurs or gallops. ABDOMEN: Less distended, bowel sounds present. No tenderness to palpation. : Deferred. No Griffin. EXTREMITIES: No clubbing. Good capillary refill. SKIN: No skin breakdown. Vital Signs (last 8hr) Date Time Temp Pulse Resp B/P (MAP) Pulse Ox O2 Delivery O2 Flow Rate FiO2 09/10/24 12:00 98.4 69 16 112/52 96 Room Air 09/10/24 08:00 99.3 73 18 158/51 95 Room Air 09/10/24 06:50 72 18 N/A Room Air 21 LABS: Laboratory: Test 09/10/24 11:03 09/10/24 06:39 09/10/24 05:54 Range/Units Whole Blood Glucose 153 #H 70-110 MG/DL Sodium Level 133 L 136-145 mmol/L Potassium Level 3.2 L 3.5-5.1 mmol/L Chloride Level 100 L 101-111 mmol/L Carbon Dioxide Level 24 21-32 mmol/L Blood Urea Nitrogen 42 H 7-18 mg/dL Creatinine 2.3 H 0.5-1.3 mg/dL Glomerular Filtration Rate Calc 28 >90 mL/min Random Glucose 94 70-105 mg/dL Lactic Acid Level 0.9 0.8-2.5 mmol/L Total Calcium 8.0 L 8.5-10.1 mg/dL Total Bilirubin 0.5 0.2-1.0 mg/dL Aspartate Amino Transf (AST/SGOT) 14 10-37 U/L Alanine Aminotransferase (ALT/SGPT) 23 12-78 U/L Alkaline Phosphatase 53 50-136 U/L Total Protein 5.4 L 6.0-8.3 g/dL Albumin 2.1 L 3.5-5.0 g/dL White Blood Count 15.1 H 4.8-10.8 K/uL Red Blood Count 2.91 L 4.50-6.20 MIL/uL Hemoglobin 8.7 L 14.0-18.0 g/dL Hematocrit 26.0 L 42-54 % Mean Corpuscular Volume 89.3 79-99 fL Mean Corpuscular Hemoglobin 29.9 27.0-33.0 pg Mean Corpuscular Hemoglobin Concent 33.5 32.0-36.0 g/dL Red Cell Distribution Width 14.2 11.0-15.5 % Platelet Count 175 130-400 K/uL Mean Platelet Volume 10.1 7.5-10.5 fL Immature Granulocyte % (Auto) 0.8 0-1 % Neutrophils (%) (Auto) 83.5 H 40.0-77.0 % Lymphocytes (%) (Auto) 8.4 L 21.0-51.0 % Monocytes (%) (Auto) 7.1 3.0-13.0 % Eosinophils (%) (Auto) 0.1 0.0-8.0 % Basophils (%) (Auto) 0.1 0.0-5.0 % Neutrophils # (Auto) 12.6 H 1.8-7.7 K/uL Lymphocytes # (Auto) 1.3 1.0-4.8 K/uL Monocytes # (Auto) 1.1 H 0.1-1.0 K/uL Eosinophils # (Auto) 0.02 0.00-0.70 K/uL Basophils # (Auto) 0.02 0.00-0.20 K/uL Absolute Immature Granulocyte (auto 0.12 0-1 K/uL Nucleated Red Blood Cells 0.0 0.0-0.19 % White Cell Morphology Comment See comments Phosphorus Level 2.3 L 2.5-4.9 mg/dL Magnesium Level 1.60 L 1.80-2.40 mg/dL Vitamin B12 Level 569 193-986 pg/mL Vitamin D 25-Hydroxy 21.6 30.0-100.0 ng/mL Current Medications Medications (Trade) Dose Ordered Sig/Abhijit Route PRN Reason Start Time Stop Time Status Last Admin Dose Admin Acetaminophen (TYLenol 325MG TAB) 650 mg Q4H PRN PO MILD PAIN (1-3) 08/26/24 02:00 09/25/24 01:59 09/10/24 05:10 650 MG Acetaminophen (TYLenol 325MG TAB) 650 mg Q6H PRN PO TEMPERATURE GREATER THAN 101.5 08/26/24 02:00 09/25/24 01:59 09/09/24 01:08 650 MG Acetylcysteine (MUComyst 10% 4ML) 400mg = 4ml [id number] 09/03/24 00:00 09/05/24 13:40 DC 09/05/24 11:08 400 MG Albuterol (DUOneb) 1 udvial BIDRESP 09/05/24 18:00 09/25/24 01:59 Albuterol (DUOneb) 1 udvial [id number] 08/26/24 02:00 09/05/24 10:01 DC 09/05/24 06:28 1 UDVIAL Albuterol (DUOneb) 1 udvial [id number] 09/05/24 12:00 09/05/24 13:40 DC 09/05/24 11:07 1 UDVIAL Amlodipine Besylate (NorvASC 5MG TAB) 5 mg DAILY PO 08/27/24 09:00 08/27/24 07:12 DC Apixaban (EliquIS 2.5 mg) 2.5 mg BID PO 09/02/24 21:00 09/03/24 14:24 DC 09/02/24 21:38 2.5 MG Apixaban (EliquIS 2.5 mg) 2.5 mg BID PO 09/05/24 21:00 10/05/24 20:59 09/10/24 09:02 2.5 MG Apixaban (EliquIS) 5 mg BID PO 09/01/24 21:00 09/02/24 16:46 DC 09/02/24 08:56 5 MG Apixaban (EliquIS) 5 mg BID PO 09/03/24 21:00 09/03/24 14:19 DC Bisacodyl (DulcoLAX 5MG TAB) 5 mg BID PO 09/05/24 21:00 10/05/24 20:59 09/10/24 09:03 5 MG Budesonide (Pulmicort 0.5 Mg/2ml) 0.5 mg BIDRESP IH 08/26/24 18:00 09/05/24 13:42 DC 09/05/24 06:28 0.5 MG Cefepime HCl (MAXipime 2 gm vial) 2 gm Q12H IVPB 08/26/24 10:00 08/29/24 07:19 DC 08/28/24 23:16 2 GM Cefepime HCl (MAXipime 2 gm vial) 2 gm Q24H IVPB 09/10/24 06:30 09/20/24 06:29 09/10/24 06:30 2 GM Ceftriaxone Sodium 1 gm/ Sodium Chloride 50 ml @ 100 mls/hr BID IV 08/26/24 09:00 08/26/24 01:51 DC Ceftriaxone Sodium (ROCEphine 1G INJ) 1 gm BID IVPB 08/26/24 09:00 08/26/24 09:43 DC 08/26/24 09:15 1 GM Dextrose (D50w) 50 ml AD PRN IV HYPOGLYCEMIA PROTOCOL 08/26/24 02:00 09/25/24 01:59 09/05/24 05:22 50 ML Epoetin Eros-epbx (Retacrit) 10,000 unit QTU@1600 SQ 09/02/24 16:00 10/02/24 15:59 09/09/24 18:37 10,000 UNIT Furosemide (LASix 20MG TAB) 20 mg BID PO 09/02/24 21:00 09/02/24 17:14 DC Furosemide (LASix 20MG TAB) 20 mg BID@09,17 PO 09/03/24 17:00 09/05/24 11:36 DC 09/05/24 10:02 20 MG Furosemide (LASix 20MG VIAL) 20 mg Q8H IV 09/05/24 12:00 10/05/24 11:59 09/10/24 04:34 20 MG Glucagon (Glucagon 1mg Kit) 1 mg AD PRN IM HYPOGLYCEMIA PROTOCOL 08/26/24 02:00 09/08/24 19:58 DC Guaifenesin/ Dextromethorphan (RobiTUSSin DM 200/20MG 10ML) 10 ml Q6H PRN PO COUGH 08/31/24 10:30 09/30/24 10:29 Heparin Sodium (Porcine) (HEParin 5,000 UNIT VIAL) 5,000 unit Q12H SQ 08/26/24 21:30 09/01/24 09:57 DC 09/01/24 09:03 5,000 UNIT Hydralazine HCl (APRESOLine 20MG INJ) 10 mg Q6H PRN IV For:SBP above 160;DBP above 90 08/26/24 02:00 09/25/24 01:59 09/07/24 21:09 10 MG Hydralazine HCl ([id number] TAB) 25 mg TID PO 08/26/24 09:00 08/27/24 07:12 DC 08/26/24 21:08 25 MG Hydralazine HCl ([id number] TAB) 50 mg TID PO 08/28/24 09:00 08/28/24 11:31 DC Hydralazine HCl ([id number] TAB) 50 mg TID PO 08/28/24 14:00 09/27/24 13:59 09/10/24 09:03 50 MG Hydralazine HCl ([id number] TAB) 100 mg TID PO 08/27/24 09:00 08/28/24 07:38 DC 08/27/24 09:22 100 MG Hydrochlorothiazide (hydroCHLOROthiazide 25MG) 25 mg DAILY PO 08/29/24 09:00 08/28/24 12:07 DC Insulin Glargine (LANtus 100 UNITS/ML 10 ML VIAL) 10 units BID@0730,2100 SQ 08/29/24 07:30 09/28/24 07:29 09/10/24 06:37 10 UNITS Insulin Human Regular (humuLIN R 100 UNIT/ML 3ML) INSULIN SLIDING SCAL... ACHS SQ 08/26/24 07:30 09/25/24 07:29 09/09/24 20:47 3 UNIT Labetalol HCl (TRANdate 20MG SYG) 10 mg Q6H PRN IV IF SBP GREATER THAN 170 08/26/24 02:00 09/25/24 01:59 08/27/24 05:41 10 MG Lactulose (Constulose 20gm/ 30ml Udcup) 20 gm BID PRN PO CONSTIPATION 08/31/24 13:00 09/30/24 12:59 09/01/24 20:04 20 GM Losartan Potassium (CozAAR 50 mg TAB) 50 mg BID PO 08/27/24 09:00 08/31/24 10:00 DC 08/31/24 09:46 50 MG Magnesium Sulfate 50 ml @ 0 mls/hr PROTOCOL IV 09/06/24 09:30 10/06/24 09:29 09/10/24 09:01 25 MLS/HR Magnesium Sulfate 50 ml @ 0 mls/hr PROTOCOL PRN IV OTHER [SEE ORDER COMMENTS] 08/26/24 02:00 09/06/24 09:32 DC 09/06/24 06:05 25 MLS/HR Melatonin (Melatonin) 5 mg HSPRN PRN PO INSOMNIA 09/01/24 23:00 10/01/24 22:59 09/09/24 21:14 5 MG Methylprednisolone Sodium Succinate (Solu-medROL 40MG) 20 mg Q8H IVP 08/29/24 06:00 08/31/24 12:05 DC 08/31/24 06:33 20 MG Methylprednisolone Sodium Succinate (Solu-medROL 40MG) 40 mg BID IVP 08/27/24 21:00 08/28/24 20:59 DC 08/28/24 09:24 40 MG Metoprolol Tartrate (loprESSOR) 100 mg BID PO 08/26/24 09:00 09/25/24 08:59 09/10/24 09:02 100 MG Montelukast Sodium (SinguLAIR) 10 mg DAILY PO 08/27/24 09:00 09/26/24 08:59 09/10/24 09:02 10 MG Morphine Sulfate (morPHINE 2MG SYG) 2 mg Q4H PRN IV MODERATE PAIN (4-6) 08/26/24 02:00 08/31/24 04:59 DC 08/26/24 06:37 2 MG Nicardipine HCl 20 mg/Sodium Chloride 200 ml @ 0 mls/hr AD PRN IV TITRATE 08/26/24 03:00 08/26/24 02:45 DC Nicardipine HCl 25 mg/Sodium Chloride 250 ml @ 0 mls/hr AD PRN IV TITRATE 08/26/24 03:00 08/27/24 18:03 DC 08/27/24 06:46 50 MLS/HR Nifedipine (adALAT 30MG) 30 mg BID PO 08/28/24 09:00 09/27/24 08:59 09/10/24 09:03 30 MG Nifedipine (adALAT 30MG) 60 mg BID PO 08/27/24 09:00 08/28/24 07:38 DC 08/27/24 07:42 60 MG Nystatin (NystOP 15 GM POWDER) 1 APPLICATION BID TP 09/05/24 21:00 10/05/24 20:59 09/10/24 09:03 1 APPL Ondansetron HCl (zoFRAN 4MG INJ) 4 mg Q6H PRN IV NAUSEA/VOMITING 08/26/24 02:00 09/25/24 01:59 Pantoprazole Sodium (PROTonix 40MG INJ) 40 mg DAILY IVP 08/27/24 09:00 09/26/24 08:59 09/10/24 09:02 40 MG Polyethylene Glycol/ Electrolytes (Golytely/Colyte Soln) 4,000 ml ONCE PO 09/05/24 12:30 09/05/24 13:30 DC 09/05/24 13:52 4,000 ML Potassium Chloride 100 ml @ 100 mls/hr AD PRN IV POTASSIUM PROTOCOL 08/26/24 02:00 09/25/24 01:59 Potassium Chloride (K-Dur 10meq Sr Tab) 10 meq AD PRN PO POTASSIUM PROTOCOL 08/26/24 18:00 09/25/24 01:59 09/10/24 14:37 10 MEQ Potassium Chloride (K-Dur/Klor-Con 20meq) 10 meq AD PRN PO POTASSIUM PROTOCOL 08/26/24 02:00 08/26/24 17:48 DC Potassium Chloride (KCl 10% Elixir 20meq/15ml) 10 meq AD PRN PO POTASSIUM PROTOCOL 08/26/24 02:00 09/25/24 01:59 09/06/24 06:05 10 MEQ Sodium Bicarbonate (Sodium Bicarbonate) 650 mg TID PO 08/28/24 14:00 09/03/24 09:15 DC 09/02/24 21:37 650 MG Sodium Chloride 1,000 ml @ 50 mls/hr Q20H IV 08/26/24 21:00 08/27/24 13:59 DC 08/26/24 21:08 50 MLS/HR Tamsulosin HCl (FloMAX) 0.4 mg BID PO 08/26/24 21:00 09/25/24 20:59 09/10/24 09:02 0.4 MG Vancomycin HCl 250 ml @ 125 mls/hr Q24H IV 08/27/24 12:00 08/29/24 07:19 DC 08/28/24 11:27 125 MLS/HR Vancomycin HCl (Vancomycin Protocol) 1 each AD IV 08/26/24 10:00 08/29/24 07:19 DC Vitamin B Complex/ Vit C/Folic Acid (Nephrovite Tablet) 1 cap DAILY PO 08/26/24 09:00 09/25/24 08:59 09/10/24 09:02 1 CAP Wound Care/ Dressing Products (Venelex Ointment) 1 APPL TID TP 08/26/24 21:00 09/25/24 20:59 09/10/24 14:40 60 GM DIAGNOSTICS / RADIOLOGY: [ ] ASSESSMENT: Sepsis POA Possible pyelonephritis POA Acute kidney injury POA Kidney stone POA Hypertensive urgency POA Acute normocytic normochromic anemia POA Acute leukocytosis POA CHF POA Debility POA Diabetes POA Hyponatremia POA Dehydration POA Hyperlipidemia POA 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 Atrial fibrillation on chronic anticoagulation POA Sacral ulcer POA Abdominal distention, possible ileus versus concern for sigmoid volvulus Urinary retention with indwelling Griffin catheter in place PLAN: Patient remains admitted to the medical floor Continue full liquid diet advanced as tolerated Discussed with case management, reauthorization submitted for discharge plan to SNF Continue colon tube with lactulose infusions Continue eliquis 2.5mg BID Continue Furosemide 20mg TID Continue glargine 10U BID Contiunue sliding scale, wean as able Continue nifedipine 30mg BID Continue tamsulosin 0.4mg BID Continue metoprolol 100mg BID Disposition: Pending rehab placement All questions answered time spent: > 35 min AYDEE CARRANZA MD Sep 10, 2024 14:47
[2024-09-11] VITALS (11 sets, daily range): BP systolic 137–155; BP diastolic 46–74; PULSE 68–74; RESP 16–22; TEMP 97.5–101.5; O2SAT 93–98
[2024-09-11 04:20] LABS: BASOPHILS # (AUTO) 0.03 K/uL (0.00-0.20); BASOPHILS % (AUTO) 0.2 % (0.0-5.0); EOSINOPHILS # (AUTO) 0.02 K/uL (0.00-0.70); EOSINOPHILS % (AUTO) 0.1 % (0.0-8.0); HEMATOCRIT 25.2 % (42-54); IMMATURE GRANULOCYTE ABSOLUTE 0.14 K/uL (0-1); LYMPHOCYTES # (AUTO) 1.3 K/uL (1.0-4.8); LYMPHOCYTES % (AUTO) 8.3 % (21.0-51.0); MEAN CORPUSCULAR HEMOGLOBIN 30.7 pg (27.0-33.0); MEAN CORPUSCULAR HGB CONC 34.9 g/dL (32.0-36.0); MEAN CORPUSCULAR VOLUME 87.8 fL (79-99); MONOCYTES # (AUTO) 1.2 K/uL (0.1-1.0); MONOCYTES % (AUTO) 7.7 % (3.0-13.0); NEUTROPHILS # (AUTO) 13.2 K/uL (1.8-7.7); NEUTROPHILS % (AUTO) 82.8 % (40.0-77.0); PLATELET COUNT (AUTO) 174 K/uL (130-400); RED BLOOD CELL COUNT(AUTO) 2.87 MIL/uL (4.50-6.20); RED CELL DISTRIBUTION WIDTH 14.1 % (11.0-15.5); WHITE BLOOD COUNT (AUTO) 15.9 K/uL (4.8-10.8)
[2024-09-11 04:32] LABS: CREATININE 2.4 mg/dL (0.5-1.3); POTASSIUM 3.4 mmol/L (3.5-5.1)
--- NOTE | 2024-09-11 10:21 | PN ---
GASTROENTEROLOGY PROGRESS NOTE Date of Visit: Sep 11, 2024 Time of Visit: 10:21 Events / Notes: No acute events overnight. s/p flex sig with insertion of decompression rectal tube. Patient was given golytely. Abdomen soft and nontender. Review of Systems: CONSTITUTIONAL: No malaise or change in sensation of wellbeing. ENMT: No rhinorrhea, otorrhea, sinus pain, ear ache. CARDIOVASCULAR: No angina, palpitations, orthopnea or paroxysmal dyspnea. RESPIRATORY: No SOB. GASTROINTESTINAL: No abdominal pain, nausea, vomiting, diarrhea, hematemesis, melena or change in the patient's habitual bowel movements consistency/number. GENITOURINARY: No dysuria, hematuria or change in bladder continence. MUSCULOSKELETAL: No new muscle pain or decrease in muscular strength. No new joint swelling, redness or tenderness. SKIN: No new rash. Physical Exam: GEN: Awake, alert, oriented in person, time and place, and in no acute distress. HEENT: No sinus tenderness. Tympanic membranes were not examined. No rhinorrhea. Oral pharyngeal mucosa is pink, moist and within normal limits. Neck is supple with no cervical lymphadenopathy, thyromegaly or JVD. CHEST: Inspection, palpation and percussion of the chest were unremarkable. Lung auscultation revealed normal breath sounds bilaterally. CARDIAC: PMI is within normal limits. Heart sounds are regular. Normal S1, S2. No gallop or murmur. ABD: Soft, non-tender and not distended. No peritoneal signs on palpation. No organomegaly. Normal bowel sounds. EXT: No cyanosis or clubbing. No edema. SKIN: Intact. No rashes. JOINTS: No evidence of synovitis or acute arthritis. NEURO: Alert and oriented to name, place and person. Cranial nerve examination is unremarkable. No focal motor deficits. Normal speech. Gait is normal. Strength is normal. Vital Signs (last 8hr) Date Time Temp Pulse Resp B/P (MAP) Pulse Ox O2 Delivery O2 Flow Rate FiO2 09/11/24 09:34 99.1 09/11/24 09:28 101.5 09/11/24 08:08 72 20 N/A Room Air 21 09/11/24 08:00 101.5 74 19 154/51 95 Room Air 09/11/24 04:00 98.4 70 22 154/51 95 Room Air Laboratory: [ ] Laboratory: Test 09/11/24 05:11 09/11/24 04:08 09/10/24 06:39 09/10/24 05:54 Range/Units Whole Blood Glucose 109 # 70-110 MG/DL White Blood Count 15.9 H 4.8-10.8 K/uL Red Blood Count 2.87 L 4.50-6.20 MIL/uL Hemoglobin 8.8 L 14.0-18.0 g/dL Hematocrit 25.2 L 42-54 % Mean Corpuscular Volume 87.8 79-99 fL Mean Corpuscular Hemoglobin 30.7 27.0-33.0 pg Mean Corpuscular Hemoglobin Concent 34.9 32.0-36.0 g/dL Red Cell Distribution Width 14.1 11.0-15.5 % Platelet Count 174 130-400 K/uL Mean Platelet Volume 10.3 7.5-10.5 fL Immature Granulocyte % (Auto) 0.9 0-1 % Neutrophils (%) (Auto) 82.8 H 40.0-77.0 % Lymphocytes (%) (Auto) 8.3 L 21.0-51.0 % Monocytes (%) (Auto) 7.7 3.0-13.0 % Eosinophils (%) (Auto) 0.1 0.0-8.0 % Basophils (%) (Auto) 0.2 0.0-5.0 % Neutrophils # (Auto) 13.2 H 1.8-7.7 K/uL Lymphocytes # (Auto) 1.3 1.0-4.8 K/uL Monocytes # (Auto) 1.2 H 0.1-1.0 K/uL Eosinophils # (Auto) 0.02 0.00-0.70 K/uL Basophils # (Auto) 0.03 0.00-0.20 K/uL Absolute Immature Granulocyte (auto 0.14 0-1 K/uL Nucleated Red Blood Cells 0.0 0.0-0.19 % Sodium Level 131 L 136-145 mmol/L Potassium Level 3.4 L 3.5-5.1 mmol/L Chloride Level 98 L 101-111 mmol/L Carbon Dioxide Level 24 21-32 mmol/L Blood Urea Nitrogen 45 H 7-18 mg/dL Creatinine 2.4 H 0.5-1.3 mg/dL Glomerular Filtration Rate Calc 27 >90 mL/min Random Glucose 115 H 70-105 mg/dL Total Calcium 8.2 L 8.5-10.1 mg/dL Lactic Acid Level 0.9 0.8-2.5 mmol/L Total Bilirubin 0.5 0.2-1.0 mg/dL Aspartate Amino Transf (AST/SGOT) 14 10-37 U/L Alanine Aminotransferase (ALT/SGPT) 23 12-78 U/L Alkaline Phosphatase 53 50-136 U/L Total Protein 5.4 L 6.0-8.3 g/dL Albumin 2.1 L 3.5-5.0 g/dL White Cell Morphology Comment See comments Phosphorus Level 2.3 L 2.5-4.9 mg/dL Magnesium Level 1.60 L 1.80-2.40 mg/dL Vitamin B12 Level 569 193-986 pg/mL Vitamin D 25-Hydroxy 21.6 30.0-100.0 ng/mL Current Medications Medications (Trade) Dose Ordered Sig/Abhijit Route PRN Reason Start Time Stop Time Status Last Admin Dose Admin Acetaminophen (TYLenol 325MG TAB) 650 mg Q4H PRN PO MILD PAIN (1-3) 08/26/24 02:00 09/25/24 01:59 09/10/24 05:10 650 MG Acetaminophen (TYLenol 325MG TAB) 650 mg Q6H PRN PO TEMPERATURE GREATER THAN 101.5 08/26/24 02:00 09/25/24 01:59 09/11/24 09:28 650 MG Acetylcysteine (MUComyst 10% 4ML) 400mg = 4ml [id number] 09/03/24 00:00 09/05/24 13:40 DC 09/05/24 11:08 400 MG Albuterol (DUOneb) 1 udvial BIDRESP 09/05/24 18:00 09/25/24 01:59 Albuterol (DUOneb) 1 udvial [id number] 08/26/24 02:00 09/05/24 10:01 DC 09/05/24 06:28 1 UDVIAL Albuterol (DUOneb) 1 udvial [id number] 09/05/24 12:00 09/05/24 13:40 DC 09/05/24 11:07 1 UDVIAL Amlodipine Besylate (NorvASC 5MG TAB) mg DAILY PO 08/27/24 09:00 08/27/24 07:12 DC Apixaban (EliquIS 2.5 mg) 2.5 mg BID PO 09/02/24 21:00 09/03/24 14:24 DC 09/02/24 21:38 2.5 MG Apixaban (EliquIS 2.5 mg) 2.5 mg BID PO 09/05/24 21:00 10/05/24 20:59 09/11/24 09:29 2.5 MG Apixaban (EliquIS) 5 mg BID PO 09/01/24 21:00 09/02/24 16:46 DC 09/02/24 08:56 5 MG Apixaban (EliquIS) 5 mg BID PO 09/03/24 21:00 09/03/24 14:19 DC Bisacodyl (DulcoLAX 5MG TAB) 5 mg BID PO 09/05/24 21:00 10/05/24 20:59 09/11/24 09:29 5 MG Budesonide (Pulmicort 0.5 Mg/2ml) 0.5 mg BIDRESP IH 08/26/24 18:00 09/05/24 13:42 DC 09/05/24 06:28 0.5 MG Cefepime HCl (MAXipime 2 gm vial) 2 gm Q12H IVPB 08/26/24 10:00 08/29/24 07:19 DC 08/28/24 23:16 2 GM Cefepime HCl (MAXipime 2 gm vial) 2 gm Q24H IVPB 09/10/24 06:30 09/20/24 06:29 09/11/24 05:34 2 GM Ceftriaxone Sodium 1 gm/ Sodium Chloride 50 ml @ 100 mls/hr BID IV 08/26/24 09:00 08/26/24 01:51 DC Ceftriaxone Sodium (ROCEphine 1G INJ) 1 gm BID IVPB 08/26/24 09:00 08/26/24 09:43 DC 08/26/24 09:15 1 GM Dextrose (D50w) 50 ml AD PRN IV HYPOGLYCEMIA PROTOCOL 08/26/24 02:00 09/25/24 01:59 09/05/24 05:22 50 ML Epoetin Eros-epbx (Retacrit) 10,000 unit QTU@1600 SQ 09/02/24 16:00 10/02/24 15:59 09/09/24 18:37 10,000 UNIT Furosemide (LASix 20MG TAB) 20 mg BID PO 09/02/24 21:00 09/02/24 17:14 DC Furosemide (LASix 20MG TAB) 20 mg BID@09,17 PO 09/03/24 17:00 09/05/24 11:36 DC 09/05/24 10:02 20 MG Furosemide (LASix 20MG VIAL) 20 mg Q8H IV 09/05/24 12:00 10/05/24 11:59 09/11/24 01:42 20 MG Glucagon (Glucagon 1mg Kit) 1 mg AD PRN IM HYPOGLYCEMIA PROTOCOL 08/26/24 02:00 09/08/24 19:58 DC Guaifenesin/ Dextromethorphan (RobiTUSSin DM 200/20MG 10ML) 10 ml Q6H PRN PO COUGH 08/31/24 10:30 09/30/24 10:29 Heparin Sodium (Porcine) (HEParin 5,000 UNIT VIAL) 5,000 unit Q12H SQ 08/26/24 21:30 09/01/24 09:57 DC 09/01/24 09:03 5,000 UNIT Hydralazine HCl (APRESOLine 20MG INJ) 10 mg Q6H PRN IV For:SBP above 160;DBP above 90 08/26/24 02:00 09/25/24 01:59 09/07/24 21:09 10 MG Hydralazine HCl ([id number] TAB) 25 mg TID PO 08/26/24 09:00 08/27/24 07:12 DC 08/26/24 21:08 25 MG Hydralazine HCl ([id number] TAB) 50 mg TID PO 08/28/24 09:00 08/28/24 11:31 DC Hydralazine HCl ([id number] TAB) 50 mg TID PO 08/28/24 14:00 09/27/24 13:59 09/10/24 21:42 50 MG Hydralazine HCl ([id number] TAB) 100 mg TID PO 08/27/24 09:00 08/28/24 07:38 DC 08/27/24 09:22 100 MG Hydrochlorothiazide (hydroCHLOROthiazide 25MG) 25 mg DAILY PO 08/29/24 09:00 08/28/24 12:07 DC Insulin Glargine (LANtus 100 UNITS/ML 10 ML VIAL) 10 units BID@0730,2100 SQ 08/29/24 07:30 09/28/24 07:29 09/11/24 06:29 10 UNITS Insulin Human Regular (humuLIN R 100 UNIT/ML 3ML) INSULIN SLIDING SCAL... ACHS SQ 08/26/24 07:30 09/25/24 07:29 09/10/24 21:45 5 UNIT Labetalol HCl (TRANdate 20MG SYG) 10 mg Q6H PRN IV IF SBP GREATER THAN 170 08/26/24 02:00 09/25/24 01:59 08/27/24 05:41 10 MG Lactulose (Constulose 20gm/ 30ml Udcup) 20 gm BID PRN PO CONSTIPATION 08/31/24 13:00 09/30/24 12:59 09/01/24 20:04 20 GM Losartan Potassium (CozAAR 50 mg TAB) 50 mg BID PO 08/27/24 09:00 08/31/24 10:00 DC 08/31/24 09:46 50 MG Magnesium Sulfate 50 ml @ 0 mls/hr PROTOCOL IV 09/06/24 09:30 10/06/24 09:29 09/10/24 09:01 25 MLS/HR Magnesium Sulfate 50 ml @ 0 mls/hr PROTOCOL PRN IV OTHER [SEE ORDER COMMENTS] 08/26/24 02:00 09/06/24 09:32 DC 09/06/24 06:05 25 MLS/HR Melatonin (Melatonin) 5 mg HSPRN PRN PO INSOMNIA 09/01/24 23:00 10/01/24 22:59 09/09/24 21:14 5 MG Methylprednisolone Sodium Succinate (Solu-medROL 40MG) 20 mg Q8H IVP 08/29/24 06:00 08/31/24 12:05 DC 08/31/24 06:33 20 MG Methylprednisolone Sodium Succinate (Solu-medROL 40MG) 40 mg BID IVP 08/27/24 21:00 08/28/24 20:59 DC 08/28/24 09:24 40 MG Metoprolol Tartrate (loprESSOR) 100 mg BID PO 08/26/24 09:00 09/25/24 08:59 09/11/24 09:29 100 MG Montelukast Sodium (SinguLAIR) 10 mg DAILY PO 08/27/24 09:00 09/26/24 08:59 09/11/24 09:29 10 MG Morphine Sulfate (morPHINE 2MG SYG) 2 mg Q4H PRN IV MODERATE PAIN (4-6) 08/26/24 02:00 08/31/24 04:59 DC 08/26/24 06:37 2 MG Nicardipine HCl 20 mg/Sodium Chloride 200 ml @ 0 mls/hr AD PRN IV TITRATE 08/26/24 03:00 08/26/24 02:45 DC Nicardipine HCl 25 mg/Sodium Chloride 250 ml @ 0 mls/hr AD PRN IV TITRATE 08/26/24 03:00 08/27/24 18:03 DC 08/27/24 06:46 50 MLS/HR Nifedipine (adALAT 30MG) 30 mg BID PO 08/28/24 09:00 09/27/24 08:59 09/11/24 09:29 30 MG Nifedipine (adALAT 30MG) 60 mg BID PO 08/27/24 09:00 08/28/24 07:38 DC 08/27/24 07:42 60 MG Nystatin (NystOP 15 GM POWDER) 1 APPLICATION BID TP 09/05/24 21:00 10/05/24 20:59 09/11/24 09:30 1 APPL Ondansetron HCl (zoFRAN 4MG INJ) 4 mg Q6H PRN IV NAUSEA/VOMITING 08/26/24 02:00 09/25/24 01:59 Pantoprazole Sodium (PROTonix 40MG INJ) 40 mg DAILY IVP 08/27/24 09:00 09/26/24 08:59 09/11/24 09:29 40 MG Polyethylene Glycol/ Electrolytes (Golytely/Colyte Soln) 4,000 ml ONCE PO 09/05/24 12:30 09/05/24 13:30 DC 09/05/24 13:52 4,000 ML Potassium Chloride 100 ml @ 100 mls/hr AD PRN IV POTASSIUM PROTOCOL 08/26/24 02:00 09/25/24 01:59 Potassium Chloride (K-Dur 10meq Sr Tab) 10 meq AD PRN PO POTASSIUM PROTOCOL 08/26/24 18:00 09/25/24 01:59 09/11/24 09:31 10 MEQ Potassium Chloride (K-Dur/Klor-Con 20meq) 10 meq AD PRN PO POTASSIUM PROTOCOL 08/26/24 02:00 08/26/24 17:48 DC Potassium Chloride (KCl 10% Elixir 20meq/15ml) 10 meq AD PRN PO POTASSIUM PROTOCOL 08/26/24 02:00 09/25/24 01:59 09/06/24 06:05 10 MEQ Sodium Bicarbonate (Sodium Bicarbonate) 650 mg TID PO 08/28/24 14:00 09/03/24 09:15 DC 09/02/24 21:37 650 MG Sodium Chloride 1,000 ml @ 50 mls/hr Q20H IV 08/26/24 21:00 08/27/24 13:59 DC 08/26/24 21:08 50 MLS/HR Tamsulosin HCl (FloMAX) 0.4 mg BID PO 08/26/24 21:00 09/25/24 20:59 09/11/24 09:29 0.4 MG Vancomycin HCl 250 ml @ 125 mls/hr Q24H IV 08/27/24 12:00 08/29/24 07:19 DC 08/28/24 11:27 125 MLS/HR Vancomycin HCl (Vancomycin Protocol) 1 each AD IV 08/26/24 10:00 08/29/24 07:19 DC Vitamin B Complex/ Vit C/Folic Acid (Nephrovite Tablet) 1 cap DAILY PO 08/26/24 09:00 09/25/24 08:59 09/11/24 09:29 1 CAP Wound Care/ Dressing Products (Venelex Ointment) 1 APPL TID TP 08/26/24 21:00 09/25/24 20:59 09/11/24 09:30 60 GM Diagnostics / Radiology: [COPY/PASTE HERE IF NO REPORTS PLEASE DELETE SECTION] Assessment: Abnormal imaging with dilated loops of colon Plan: Patient cleared for discharge EDWIN [employer] Sep 11, 2024 10:21
--- NOTE | 2024-09-11 10:51 | PN ---
FOLLOWUP PROGRESS NOTE SUBJECTIVE: An 78-year-old male who has had a prolonged hospital course. The patient has a history of known coronary artery disease. The patient with underlying chronic renal insufficiency. The patient started back on the diuretics and his urine output continues to slowly improve. The patient with significant debilitation, being seen by case management for final disposition, which will be the alf. The patient is being seen as a followup visit for all of the above. REVIEW OF SYSTEMS: CONSTITUTIONAL: He is feeling weak and tired. HEENT: No change in vision. No change in hearing. CARDIOVASCULAR: There are no current chest pains or palpitations. PULMONARY: There is no shortness of breath. GASTROINTESTINAL: He is tolerating a diet. MUSCULOSKELETAL: Complaints of weakness. PHYSICAL EXAMINATION: VITAL SIGNS: Blood pressure is 154/51, pulse in the 70s, T-max is 101. GENERAL: He is chronically ill male, elderly, lying in bed on the medical floor. HEENT: Head is atraumatic. Pupils are equal, roving to light. Oropharynx is without exudate. Nares clear. NECK: There is no JVP. There is no thyromegaly, no mass. CARDIOVASCULAR: Regular. There is no S3 or S4 gallop. LUNGS: Coarse with equal thoracic movement. ABDOMEN: Soft, nondistended, and nontender. EXTREMITIES: There is no clubbing, no cyanosis. NEUROLOGICAL: He is awake. He is at his baseline. LABORATORY DATA: Hemoglobin 8.8, hematocrit 25, white blood cell count 15,000, BUN 45, creatinine 2.4, potassium 3.4. IMPRESSION: * Acute on chronic renal failure. * Coronary artery disease. * Diabetes mellitus. * Obstructive uropathy. PLAN: The patient's creatinine of 2.4 mg/dL is essentially the patient's baseline. The patient remains on the diuretics and his urine output has been adequate. The patient is being seen by case management for final disposition. Blood pressure is under adequate control. Blood pressure medications continue to be adjusted. He remains on Epogen for the anemia. Once the patient is discharged, he will follow up in the renal clinic. TID: [id number] RECEIPT: [id number]
--- NOTE | 2024-09-11 14:35 | PN ---
[facility] PROGRESS NOTE Date of Service: Sep 11, 2024 Time of Service: 14:20 SUBJECTIVE: 08/27 Pt seen at bedside, no acute events overnight. Pt weaned off cardene drip, started on PO medications. Will monitor throughout the day and possibly dc tomorrow if BP remains stable 08/28 Pt seen at bedside, no acute events overnight. Pt blood pressure well controlled however he has significant wheeze, rhoncous breathing and cough. Will continue with nebulizers and systemic steroid treatment. CO2 low, will order ABG and follow up. Pt mildly delirius today but responds appropriately 08/29 patient seen at bedside, no acute events overnight. He is still has prominent wheeze and rhonchus breathing. There was no evidence of pneumonia on initial workup, chest x-ray was clear and procalcitonin was in normal range. We will discontinue antibiotics at this time and continue with nebulizers and syste lazaro steroids. As patient has been somewhat confused holding cefepime may help improve his mental status however he is also on systemic steroids which can also contribute to some delirium. Physical therapy recommending detention for rehab, we will consult case management for placement. Patient blood sugars have been elevated we will start glargine 10 units twice daily. Creatinine increased from 2.3 up to 2.8, patient was started on bicarbonate yesterday, we will continue to monitor his urine output. 08/30 patient seen at bedside, no acute events overnight. His wheeze has improved significantly today, he is sitting at bedside on room air now. We will continue with nebulizers and systemic steroids. He is pending placement to detention. 08/31 patient seen at bedside, no acute events overnight. He has no complaints at bedside, breathing appears to be improved, he continues on room air. Family recommending detention placement. His BUN/creatinine continue to up trend to 91 and 3.4. He has no history of heart failure, we will bolus 1 L and follow up with his renal function tomorrow. Nephrology consulted for further recommendations. 09/01 blood pressure 126/45, afebrile, saturating normal on room air. CBC shows a hemoglobin of 8.6, hematocrit 25.4, WBC of 12.3, platelet count of 252. Sodium 137, potassium 3.2, BUN of 93, creatinine of 3.3, bicarb of 20. ABG with a pH of 7.37, pCO2 24, bicarbonate of 13.8. Currently the patient on sodium bicarbonate 650 mg p.o. t.i.d.. Nephrology consultation requested, continue to follow input and recommendations. Family recommended detention facility, we will discuss with case management. 09/02 patient's blood pressure 162/56, afebrile, saturating normal on room air. Case discussed with the RN, patient has a large bowel movement this morning, he feels hungry. During my visit he is comfortable sitting in the chair, he feels less distended and better today compared to yesterday. Denies nausea, no vomiting, no abdominal pain. BP done yesterday was showing abnormal bowel gas pattern, ileus favored over low colon obstruction. CT of the abdomen showing mildly dilated air-filled loops of colon, no transition some findings most consistent with gastroenteritis or ileus, no transition zone to suggest ob struction, moderate bilateral renal cortical thinning, minimal bilateral pleural effusions. Surgical consultation requested, we will follow input and recommendation, we will repeat KUB, we will possibly start clear liquid diet. Patient is still with urinary retention, we will attempt to insert Griffin catheter today, if unable we will request Urology consult. Patient noted to have mild bilateral lower extremity edema, we will start Lasix 20 mg p.o. b.i.d.. 09/03 the patient remains admitted to the medical floor, case discussed with the RN, the patient back in the room, unable to lie flat for the Gastrografin enema per surgery recommendation. During my visit patient awake, following commands, not in distress. He remains hemodynamically stable. Hemoglobin 9.3, currently tolerating diet, passing gas. Patient evaluated by General surgery, abdominal distention concerning for sigmoid volvulus. Case discussed with the surgery, GI consulted for decompressive sigmoidoscopy, case discussed, plan to do tomorrow. 09/04 patient is seen and examined at bedside, back in the room, per discussion with the RN, refused flexible sigmoidoscopy. He is alert oriented x3, discussed with the patient the importance of having the procedure done, however the patient refused, he stated that he does not want any further medical management, he wants to go back to detention facility with the hospice services. He is a DNR/DNI. We will discuss with the daughter she is available at bedside. 09/05 patient remains admitted to the medical floor, long discussion was done yesterday with the patient in the room in front of her daughter, regarding the importance of having the flexible sigmoidoscopy done. I discussed with the patient that if he refused, and he wanted to go to the detention facility with hospice services I could arrange for that per records not start him on a diet until we will rule out the possibility of volvulus. After a very long discussion the the patient agreed to have the flexible sigmoidoscopy. Today blood pressure 160/64, afebrile, saturating normal on room air. Hemoglobin stable 10.1, hematocrit 29.7. During my visit the patient is back in the room from having flexible sigmoidoscopy, with the following findings: -the perianal and digital rectal examination were normal. Solid stool was found in the rectum, in the sigmoid colon, in the descending colon and in the transfer colon, interfering with a fistulization. Lavage of the area was performed, resulting in incomplete clearance with continued poor visualization. A colonic decompression tube was placed. Impression: -preparation of the colon was poor. -stool in the rectum, in the sigmoid colon, in the descending colon and in the transverse colon. -no specimens collected. Recommendations: -[facility] -clear liquid diet -continue present medications -obtain KUB -give GoLYTELY 500 cc per colon tube every 4 hours -start bisacodyl 5 mg p.o. b.i.d. KUB REVIEWED, GASEOUS DISTENTION OF THE COLON, EXPECTED ON BASIS OF RECENT CO LONOSCOPY, NO SIGNIFICANT ABNORMALITIES OTHERWISE. 09/06 patient is seen and examined at bedside, case discussed with the RN, no acute events overnight, patient resting comfortable in bed, abdomen is more soft, tolerating clear liquid diet. Patient had good bowel movement after GoLYTELY 500 cc per: Tube giving every 4 hours and starting bisacodyl, we will advance diet to full liquid diet. Case management consulted, authorization recent for the patient to get approved to detention facility. Discussed with the patient. 09/07 patient is seen and examined at bedside, case discussed with the RN, no acute events overnight, passing gas, moving bowel. Recent KUB and CT of the abdomen, possible ileus versus small-bowel obstruction, surgical consultation requested, concern for possible volvulus, patient initially refused Gastrografin enema, GI consultation requested, flexible sigmoidoscopy done,stool in the rectum, in the sigmoid colon, in the descending colon and in the transverse colon. Recommended give GoLYTELY 500 cc per colon tube every 4 hours for 2 days and bisacodyl 5 mg p.o. b.i.d. continue to follow GI input and recommendation. Patient with a mild anasarca, Lasix increased to 20 mg IV q.8 hours, improved. Discussed with case management, reauthorization submitted for SNF placement. 09/08 No acute events overnight. Colon tube still in place, will follow up with GI regarding when to remove. Last reported BM yesterday. Pending SNF placement once cleared 09/09 Pt initially discharged however he was unable to transfer to chair and asked for placement to rehab. Case management to assist 09/10 no acute events overnight. Patient to continue with PT/OT. WBC uptrending, will start cefepime and order lactic acid. Potassium low at 3.2, will replete according to protocol. Continue rehab with PT/OT, pending placement 09/11 no acute events overnight. Patient febrile this morning with a T-max of a 101.5, yesterday she was started on cefepime, we will start doxycycline in order repeat blood cultures and urine cultures. influenza and covid panel will be ordered. REVIEW OF SYSTEMS 12 point ROS negative unless noted in HPI PHYSICAL EXAM GENERAL APPEARANCE: The patient is awake, alert, and oriented, in no acute cardiopulmonary distress. NEUROLOGICAL: Cranial nerves II-XII grossly intact. Motor is 5/5 in bilateral upper and lower extremities proximal to distal. No sensory deficits. HEENT: Face is symmetric. Pupils are equal and reactive. Extraocular movements are intact. NECK: Supple. No JVD. No thyromegaly. No submental, submandibular, pre- /postauricular, occipital or supraclavicular lymphadenopathy. CHEST: Normal chest expansion. No Telemetry. LUNGS: no wheezing, no rhonchi, no rales CARDIOVASCULAR: Regular. S1 and S2 normal. No appreciable rubs, murmurs or gallops. ABDOMEN: Less distended, bowel sounds present. No tenderness to palpation. : Deferred. No Griffin. EXTREMITIES: No clubbing. Good capillary refill. SKIN: No skin breakdown. Vital Signs (last 8hr) Date Time Temp Pulse Resp B/P (MAP) Pulse Ox O2 Delivery O2 Flow Rate FiO2 09/11/24 09:34 99.1 09/11/24 09:28 101.5 09/11/24 08:08 72 20 N/A Room Air 21 09/11/24 08:00 101.5 74 19 154/51 95 Room Air LABS: Laboratory: Test 09/11/24 11:13 09/11/24 04:08 09/10/24 06:39 09/10/24 05:54 Range/Units Whole Blood Glucose 122 H 70-110 MG/DL White Blood Count 15.9 H 4.8-10.8 K/uL Red Blood Count 2.87 L 4.50-6.20 MIL/uL Hemoglobin 8.8 L 14.0-18.0 g/dL Hematocrit 25.2 L 42-54 % Mean Corpuscular Volume 87.8 79-99 fL Mean Corpuscular Hemoglobin 30.7 27.0-33.0 pg Mean Corpuscular Hemoglobin Concent 34.9 32.0-36.0 g/dL Red Cell Distribution Width 14.1 11.0-15.5 % Platelet Count 174 130-400 K/uL Mean Platelet Volume 10.3 7.5-10.5 fL Immature Granulocyte % (Auto) 0.9 0-1 % Neutrophils (%) (Auto) 82.8 H 40.0-77.0 % Lymphocytes (%) (Auto) 8.3 L 21.0-51.0 % Monocytes (%) (Auto) 7.7 3.0-13.0 % Eosinophils (%) (Auto) 0.1 0.0-8.0 % Basophils (%) (Auto) 0.2 0.0-5.0 % Neutrophils # (Auto) 13.2 H 1.8-7.7 K/uL Lymphocytes # (Auto) 1.3 1.0-4.8 K/uL Monocytes # (Auto) 1.2 H 0.1-1.0 K/uL Eosinophils # (Auto) 0.02 0.00-0.70 K/uL Basophils # (Auto) 0.03 0.00-0.20 K/uL Absolute Immature Granulocyte (auto 0.14 0-1 K/uL Nucleated Red Blood Cells 0.0 0.0-0.19 % Sodium Level 131 L 136-145 mmol/L Potassium Level 3.4 L 3.5-5.1 mmol/L Chloride Level 98 L 101-111 mmol/L Carbon Dioxide Level 24 21-32 mmol/L Blood Urea Nitrogen 45 H 7-18 mg/dL Creatinine 2.4 H 0.5-1.3 mg/dL Glomerular Filtration Rate Calc 27 >90 mL/min Random Glucose 115 H 70-105 mg/dL Total Calcium 8.2 L 8.5-10.1 mg/dL Lactic Acid Level 0.9 0.8-2.5 mmol/L Total Bilirubin 0.5 0.2-1.0 mg/dL Aspartate Amino Transf (AST/SGOT) 14 10-37 U/L Alanine Aminotransferase (ALT/SGPT) 23 12-78 U/L Alkaline Phosphatase 53 50-136 U/L Total Protein 5.4 L 6.0-8.3 g/dL Albumin 2.1 L 3.5-5.0 g/dL White Cell Morphology Comment See comments Phosphorus Level 2.3 L 2.5-4.9 mg/dL Magnesium Level 1.60 L 1.80-2.40 mg/dL Vitamin B12 Level 569 193-986 pg/mL Vitamin D 25-Hydroxy 21.6 30.0-100.0 ng/mL Current Medications Medications (Trade) Dose Ordered Sig/Abhijit Route PRN Reason Start Time Stop Time Status Last Admin Dose Admin Acetaminophen (TYLenol 325MG TAB) 650 mg Q4H PRN PO MILD PAIN (1-3) 08/26/24 02:00 09/25/24 01:59 09/10/24 05:10 650 MG Acetaminophen (TYLenol 325MG TAB) 650 mg Q6H PRN PO TEMPERATURE GREATER THAN 101.5 08/26/24 02:00 09/25/24 01:59 09/11/24 09:28 650 MG Acetylcysteine (MUComyst 10% 4ML) 400mg = 4ml [id number] 09/03/24 00:00 09/05/24 13:40 DC 09/05/24 11:08 400 MG Albuterol (DUOneb) 1 udvial BIDRESP 09/05/24 18:00 09/25/24 01:59 Albuterol (DUOneb) 1 udvial [id number] 08/26/24 02:00 09/05/24 10:01 DC 09/05/24 06:28 1 UDVIAL Albuterol (DUOneb) 1 udvial [id number] 09/05/24 12:00 09/05/24 13:40 DC 09/05/24 11:07 1 UDVIAL Amlodipine Besylate (NorvASC 5MG TAB) 5 mg DAILY PO 08/27/24 09:00 08/27/24 07:12 DC Apixaban (EliquIS 2.5 mg) 2.5 mg BID PO 09/02/24 21:00 09/03/24 14:24 DC 09/02/24 21:38 2.5 MG Apixaban (EliquIS 2.5 mg) 2.5 mg BID PO 09/05/24 21:00 10/05/24 20:59 09/11/24 09:29 2.5 MG Apixaban (EliquIS) 5 mg BID PO 09/01/24 21:00 09/02/24 16:46 DC 09/02/24 08:56 5 MG Apixaban (EliquIS) 5 mg BID PO 09/03/24 21:00 09/03/24 14:19 DC Bisacodyl (DulcoLAX 5MG TAB) 5 mg BID PO 09/05/24 21:00 10/05/24 20:59 09/11/24 09:29 5 MG Budesonide (Pulmicort 0.5 Mg/2ml) 0.5 mg BIDRESP 08/26/24 18:00 09/05/24 13:42 DC 09/05/24 06:28 0.5 MG Cefepime HCl (MAXipime 2 gm vial) 2 gm Q12H IVPB 08/26/24 10:00 08/29/24 07:19 DC 08/28/24 23:16 2 GM Cefepime HCl (MAXipime 2 gm vial) 2 gm Q24H IVPB 09/10/24 06:30 09/20/24 06:29 09/11/24 05:34 2 GM Ceftriaxone Sodium 1 gm/ Sodium Chloride 50 ml @ 100 mls/hr BID IV 08/26/24 09:00 08/26/24 01:51 DC Ceftriaxone Sodium (ROCEphine 1G INJ) 1 gm BID IVPB 08/26/24 09:00 08/26/24 09:43 DC 08/26/24 09:15 1 GM Dextrose (D50w) 50 ml AD PRN IV HYPOGLYCEMIA PROTOCOL 08/26/24 02:00 09/25/24 01:59 09/05/24 05:22 50 ML Doxycycline Hyclate 250 ml @ 125 mls/hr Q12H IV 09/11/24 14:30 09/21/24 14:29 UNV Epoetin Eros-epbx (Retacrit) 10,000 unit QTU@1600 SQ 09/02/24 16:00 10/02/24 15:59 09/09/24 18:37 10,000 UNIT Furosemide (LASix 20MG TAB) 20 mg BID PO 09/02/24 21:00 09/02/24 17:14 DC Furosemide (LASix 20MG TAB) 20 mg BID@09 PO 09/03/24 17:00 09/05/24 11:36 DC 09/05/24 10:02 20 MG Furosemide (LASix 20MG VIAL) 20 mg Q8H IV 09/05/24 12:00 10/05/24 11:59 09/11/24 12:54 20 MG Glucagon (Glucagon 1mg Kit) 1 mg AD PRN IM HYPOGLYCEMIA PROTOCOL 08/26/24 02:00 09/08/24 19:58 DC Guaifenesin/ Dextromethorphan (RobiTUSSin DM 200/20MG 10ML) 10 ml Q6H PRN PO COUGH 08/31/24 10:30 09/30/24 10:29 Heparin Sodium (Porcine) (HEParin 5,000 UNIT VIAL) 5,000 unit Q12H SQ 08/26/24 21:30 09/01/24 09:57 DC 09/01/24 09:03 5,000 UNIT Hydralazine HCl (APRESOLine 20MG INJ) 10 mg Q6H PRN IV For:SBP above 160;DBP above 90 08/26/24 02:00 09/25/24 01:59 09/07/24 21:09 10 MG Hydralazine HCl ([id number] TAB) 25 mg TID PO 08/26/24 09:00 08/27/24 07:12 DC 08/26/24 21:08 25 MG Hydralazine HCl ([id number] TAB) 50 mg TID PO 08/28/24 09:00 08/28/24 11:31 DC Hydralazine HCl ([id number] TAB) 50 mg TID PO 08/28/24 14:00 09/27/24 13:59 09/10/24 21:42 50 MG Hydralazine HCl ([id number] TAB) 100 mg TID PO 08/27/24 09:00 08/28/24 07:38 DC 08/27/24 09:22 100 MG Hydrochlorothiazide (hydroCHLOROthiazide 25MG) 25 mg DAILY PO 08/29/24 09:00 08/28/24 12:07 DC Insulin Glargine (LANtus 100 UNITS/ML 10 ML VIAL) 10 units BID@0730,2100 SQ 08/29/24 07:30 09/28/24 07:29 09/11/24 06:29 10 UNITS Insulin Human Regular (humuLIN R 100 UNIT/ML 3ML) INSULIN SLIDING SCAL... ACHS SQ 08/26/24 07:30 09/25/24 07:29 09/10/24 21:45 5 UNIT Labetalol HCl (TRANdate 20MG SYG) 10 mg Q6H PRN IV IF SBP GREATER THAN 170 08/26/24 02:00 09/25/24 01:59 08/27/24 05:41 10 MG Lactulose (Constulose 20gm/ 30ml Udcup) 20 gm BID PRN PO CONSTIPATION 08/31/24 13:00 09/30/24 12:59 09/01/24 20:04 20 GM Losartan Potassium (CozAAR 50 mg TAB) 50 mg BID PO 08/27/24 09:00 08/31/24 10:00 DC 08/31/24 09:46 50 MG Magnesium Sulfate 50 ml @ 0 mls/hr PROTOCOL IV 09/06/24 09:30 10/06/24 09:29 09/10/24 09:01 25 MLS/HR Magnesium Sulfate 50 ml @ 0 mls/hr PROTOCOL PRN IV OTHER [SEE ORDER COMMENTS] 08/26/24 02:00 09/06/24 09:32 DC 09/06/24 06:05 25 MLS/HR Melatonin (Melatonin) 5 mg HSPRN PRN PO INSOMNIA 09/01/24 23:00 10/01/24 22:59 09/09/24 21:14 5 MG Methylprednisolone Sodium Succinate (Solu-medROL 40MG) 20 mg Q8H IVP 08/29/24 06:00 08/31/24 12:05 DC 08/31/24 06:33 20 MG Methylprednisolone Sodium Succinate (Solu-medROL 40MG) 40 mg BID IVP 08/27/24 21:00 08/28/24 20:59 DC 08/28/24 09:24 40 MG Metoprolol Tartrate (loprESSOR) 100 mg BID PO 08/26/24 09:00 09/25/24 08:59 09/11/24 09:29 100 MG Montelukast Sodium (SinguLAIR) 10 mg DAILY PO 08/27/24 09:00 09/26/24 08:59 09/11/24 09:29 10 MG Morphine Sulfate (morPHINE 2MG SYG) 2 mg Q4H PRN IV MODERATE PAIN (4-6) 08/26/24 02:00 08/31/24 04:59 DC 08/26/24 06:37 2 MG Nicardipine HCl 20 mg/Sodium Chloride 200 ml @ 0 mls/hr AD PRN IV TITRATE 08/26/24 03:00 08/26/24 02:45 DC Nicardipine HCl 25 mg/Sodium Chloride 250 ml @ 0 mls/hr AD PRN IV TITRATE 08/26/24 03:00 08/27/24 18:03 DC 08/27/24 06:46 50 MLS/HR Nifedipine (adALAT 30MG) 30 mg BID PO 08/28/24 09:00 09/27/24 08:59 09/11/24 09:29 30 MG Nifedipine (adALAT 30MG) 60 mg BID PO 08/27/24 09:00 08/28/24 07:38 DC 08/27/24 07:42 60 MG Nystatin (NystOP 15 GM POWDER) 1 APPLICATION BID TP 09/05/24 21:00 10/05/24 20:59 09/11/24 09:30 1 APPL Ondansetron HCl (zoFRAN 4MG INJ) 4 mg Q6H PRN IV NAUSEA/VOMITING 08/26/24 02:00 09/25/24 01:59 Pantoprazole Sodium (PROTonix 40MG INJ) 40 mg DAILY IVP 08/27/24 09:00 09/26/24 08:59 09/11/24 09:29 40 MG Polyethylene Glycol/ Electrolytes (Golytely/Colyte Soln) 4,000 ml ONCE PO 09/05/24 12:30 09/05/24 13:30 DC 09/05/24 13:52 4,000 ML Potassium Chloride 100 ml @ 100 mls/hr AD PRN IV POTASSIUM PROTOCOL 08/26/24 02:00 09/25/24 01:59 Potassium Chloride (K-Dur 10meq Sr Tab) 10 meq AD PRN PO POTASSIUM PROTOCOL 08/26/24 18:00 09/25/24 01:59 09/11/24 12:54 10 MEQ Potassium Chloride (K-Dur/Klor-Con 20meq) 10 meq AD PRN PO POTASSIUM PROTOCOL 08/26/24 02:00 08/26/24 17:48 DC Potassium Chloride (KCl 10% Elixir 20meq/15ml) 10 meq AD PRN PO POTASSIUM PROTOCOL 08/26/24 02:00 09/25/24 01:59 09/06/24 06:05 10 MEQ Sodium Bicarbonate (Sodium Bicarbonate) 650 mg TID PO 08/28/24 14:00 09/03/24 09:15 DC 09/02/24 21:37 650 MG Sodium Chloride 1,000 ml @ 50 mls/hr Q20H IV 08/26/24 21:00 08/27/24 13:59 DC 08/26/24 21:08 50 MLS/HR Tamsulosin HCl (FloMAX) 0.4 mg BID PO 08/26/24 21:00 09/25/24 20:59 09/11/24 09:29 0.4 MG Vancomycin HCl 250 ml @ 125 mls/hr Q24H IV 08/27/24 12:00 08/29/24 07:19 DC 08/28/24 11:27 125 MLS/HR Vancomycin HCl (Vancomycin Protocol) 1 each AD IV 08/26/24 10:00 08/29/24 07:19 DC Vitamin B Complex/ Vit C/Folic Acid (Nephrovite Tablet) 1 cap DAILY PO 08/26/24 09:00 09/25/24 08:59 09/11/24 09:29 1 CAP Wound Care/ Dressing Products (Venelex Ointment) 1 APPL TID TP 5/27/25 21:00 09/25/24 20:59 09/11/24 09:30 60 GM DIAGNOSTICS / RADIOLOGY: [ ] ASSESSMENT: Sepsis POA Acute kidney injury POA Recurrent fevers Kidney stone POA Hypertensive urgency POA Acute normocytic normochromic anemia POA Acute leukocytosis POA CHF POA Debility POA Diabetes POA Hyponatremia POA Dehydration POA Hyperlipidemia POA 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 Atrial fibrillation on chronic anticoagulation POA Sacral ulcer POA Abdominal distention, possible ileus versus concern for sigmoid volvulus Urinary retention with indwelling Griffin catheter in place PLAN: Patient remains admitted to the medical floor Repeat cultures ordered, will follow up Start doxycycline, continue cefepime Continue full liquid diet advanced as tolerated Discussed with case management, reauthorization submitted for discharge plan to SNF Continue colon tube with lactulose infusions Continue eliquis 2.5mg BID Continue Furosemide 20mg TID Continue glargine 10U BID Contiunue sliding scale, wean as able Continue nifedipine 30mg BID Continue tamsulosin 0.4mg BID Continue metoprolol 100mg BID Disposition: Pending rehab placement, repeat cultures All questions answered time spent: > 35 min AYDEE CARRANZA MD Sep 11, 2024 14:35
[2024-09-11] MEDS: DOXYCYCLINE 100MG+NS 250ML 250 ML IV SCH (14:50)
--- NOTE | 2024-09-11 15:05 | HMCIMG ---
Exam Type: CHEST 1VW Clinical Information: fever, shortness of breath Comparison: None Findings: There is cardiomegaly and there is status post median sternotomy. The lungs are clear of infiltrates. Left-sided cardiac pacemaker is noted with leads in place. Impression: Clear lungs.
[2024-09-11 16:16] LABS: COVID19 (SARS ANTIGEN RAPID) PRESUMPTIVE NEGATIVE (NEGATIVE); INFLUENZA TYPE A Negative For Type A (NEGATIVE); INFLUENZA TYPE B Negative For Type B (NEGATIVE)
[2024-09-12] VITALS (9 sets, daily range): BP systolic 97–163; BP diastolic 52–75; PULSE 67–79; RESP 17–20; TEMP 97.7–98.4; O2SAT 96–98
[2024-09-12 04:22] LABS: BASOPHILS # (AUTO) 0.03 K/uL (0.00-0.20); BASOPHILS % (AUTO) 0.3 % (0.0-5.0); EOSINOPHILS # (AUTO) 0.11 K/uL (0.00-0.70); EOSINOPHILS % (AUTO) 0.9 % (0.0-8.0); HEMATOCRIT 26.6 % (42-54); IMMATURE GRANULOCYTE ABSOLUTE 0.06 K/uL (0-1); LYMPHOCYTES # (AUTO) 1.2 K/uL (1.0-4.8); LYMPHOCYTES % (AUTO) 9.9 % (21.0-51.0); MEAN CORPUSCULAR HEMOGLOBIN 29.9 pg (27.0-33.0); MEAN CORPUSCULAR HGB CONC 32.3 g/dL (32.0-36.0); MEAN CORPUSCULAR VOLUME 92.4 fL (79-99); MONOCYTES # (AUTO) 1.1 K/uL (0.1-1.0); NEUTROPHILS # (AUTO) 9.4 K/uL (1.8-7.7); NEUTROPHILS % (AUTO) 79.4 % (40.0-77.0); PLATELET COUNT (AUTO) 214 K/uL (130-400); RED BLOOD CELL COUNT(AUTO) 2.88 MIL/uL (4.50-6.20); RED CELL DISTRIBUTION WIDTH 13.9 % (11.0-15.5); WHITE BLOOD COUNT (AUTO) 11.8 K/uL (4.8-10.8)
[2024-09-12 04:47] LABS: CREATININE 2.3 mg/dL (0.5-1.3); POTASSIUM 3.5 mmol/L (3.5-5.1)
--- NOTE | 2024-09-12 13:53 | PN ---
GASTROENTEROLOGY PROGRESS NOTE Date of Visit: Sep 12, 2024 Time of Visit: 13:52 Events / Notes: No acute events overnight. s/p flex sig with insertion of decompression rectal tube. Patient was given golytely. Abdomen soft and nontender. Review of Systems: CONSTITUTIONAL: No malaise or change in sensation of wellbeing. ENMT: No rhinorrhea, otorrhea, sinus pain, ear ache. CARDIOVASCULAR: No angina, palpitations, orthopnea or paroxysmal dyspnea. RESPIRATORY: No SOB. GASTROINTESTINAL: No abdominal pain, nausea, vomiting, diarrhea, hematemesis, melena or change in the patient's habitual bowel movements consistency/number. GENITOURINARY: No dysuria, hematuria or change in bladder continence. MUSCULOSKELETAL: No new muscle pain or decrease in muscular strength. No new joint swelling, redness or tenderness. SKIN: No new rash. Physical Exam: GEN: Awake, alert, oriented in person, time and place, and in no acute distress. HEENT: No sinus tenderness. Tympanic membranes were not examined. No rhinorrhea. Oral pharyngeal mucosa is pink, moist and within normal limits. Neck is supple with no cervical lymphadenopathy, thyromegaly or JVD. CHEST: Inspection, palpation and percussion of the chest were unremarkable. Lung auscultation revealed normal breath sounds bilaterally. CARDIAC: PMI is within normal limits. Heart sounds are regular. Normal S1, S2. No gallop or murmur. ABD: Soft, non-tender and not distended. No peritoneal signs on palpation. No organomegaly. Normal bowel sounds. EXT: No cyanosis or clubbing. No edema. SKIN: Intact. No rashes. JOINTS: No evidence of synovitis or acute arthritis. NEURO: Alert and oriented to name, place and person. Cranial nerve examination is unremarkable. No focal motor deficits. Normal speech. Gait is normal. Strength is normal. Vital Signs (last 8hr) Date Time Temp Pulse Resp B/P (MAP) Pulse Ox O2 Delivery O2 Flow Rate FiO2 09/12/24 12:00 98.4 68 19 152/56 96 Room Air 09/12/24 08:26 98.4 74 17 157/57 96 Room Air Laboratory: [ ] Laboratory: Test 09/12/24 12:16 09/12/24 03:43 09/11/24 14:55 Range/Units Whole Blood Glucose 105 70-110 MG/DL White Blood Count 11.8 #H 4.8-10.8 K/uL Red Blood Count 2.88 L 4.50-6.20 MIL/uL Hemoglobin 8.6 L 14.0-18.0 g/dL Hematocrit 26.6 L 42-54 % Mean Corpuscular Volume 92.4 79-99 fL Mean Corpuscular Hemoglobin 29.9 27.0-33.0 pg Mean Corpuscular Hemoglobin Concent 32.3 32.0-36.0 g/dL Red Cell Distribution Width 13.9 11.0-15.5 % Platelet Count 214 130-400 K/uL Mean Platelet Volume 10.5 7.5-10.5 fL Immature Granulocyte % (Auto) 0.5 0-1 % Neutrophils (%) (Auto) 79.4 H 40.0-77.0 % Lymphocytes (%) (Auto) 9.9 L 21.0-51.0 % Monocytes (%) (Auto) 9.0 3.0-13.0 % Eosinophils (%) (Auto) 0.9 0.0-8.0 % Basophils (%) (Auto) 0.3 0.0-5.0 % Neutrophils # (Auto) 9.4 H 1.8-7.7 K/uL Lymphocytes # (Auto) 1.2 1.0-4.8 K/uL Monocytes # (Auto) 1.1 H 0.1-1.0 K/uL Eosinophils # (Auto) 0.11 0.00-0.70 K/uL Basophils # (Auto) 0.03 0.00-0.20 K/uL Absolute Immature Granulocyte (auto 0.06 0-1 K/uL Nucleated Red Blood Cells 0.0 0.0-0.19 % Sodium Level 136 136-145 mmol/L Potassium Level 3.5 3.5-5.1 mmol/L Chloride Level 100 L 101-111 mmol/L Carbon Dioxide Level 22 21-32 mmol/L Blood Urea Nitrogen 48 H 7-18 mg/dL Creatinine 2.3 H 0.5-1.3 mg/dL Glomerular Filtration Rate Calc 28 >90 mL/min Random Glucose 120 H 70-105 mg/dL Total Calcium 8.1 L 8.5-10.1 mg/dL Influenza Type A Antigen Negative For Type A NEGATIVE Influenza Type B Antigen Negative For Type B NEGATIVE SARS-CoV-2 Antigen (Rapid) PRESUMPTIVE NEGATIVE NEGATIVE Current Medications Medications (Trade) Dose Ordered Sig/Abhijit Route PRN Reason Start Time Stop Time Status Last Admin Dose Admin Acetaminophen (TYLenol 325MG TAB) 650 mg Q4H PRN PO MILD PAIN (1-3) 08/26/24 02:00 09/25/24 01:59 09/10/24 05:10 650 MG Acetaminophen (TYLenol 325MG TAB) 650 mg Q6H PRN PO TEMPERATURE GREATER THAN 101.5 08/26/24 02:00 09/25/24 01:59 09/11/24 09:28 650 MG Acetylcysteine (MUComyst 10% 4ML) 400mg = 4ml [id number] IH 09/03/24 00:00 09/05/24 13:40 DC 09/05/24 11:08 400 MG Albuterol (DUOneb) 1 udvial BIDRESP IH 09/05/24 18:00 09/25/24 01:59 Albuterol (DUOneb) 1 udvial [id number] IH 08/26/24 02:00 09/05/24 10:01 DC 09/05/24 06:28 1 UDVIAL Albuterol (DUOneb) 1 udvial [id number] IH 09/05/24 12:00 09/05/24 13:40 DC 09/05/24 11:07 1 UDVIAL Amlodipine Besylate (NorvASC 5MG TAB) 5 mg DAILY PO 08/27/24 09:00 08/27/24 07:12 DC Apixaban (EliquIS 2.5 mg) 2.5 mg BID PO 09/02/24 21:00 09/03/24 14:24 DC 09/02/24 21:38 2.5 MG Apixaban (EliquIS 2.5 mg) 2.5 mg BID PO 09/05/24 21:00 10/05/24 20:59 09/12/24 08:01 2.5 MG Apixaban (EliquIS) 5 mg BID PO 09/01/24 21:00 09/02/24 16:46 DC 09/02/24 08:56 5 MG Apixaban (EliquIS) 5 mg BID PO 09/03/24 21:00 09/03/24 14:19 DC Bisacodyl (DulcoLAX 5MG TAB) 5 mg BID PO 09/05/24 21:00 10/05/24 20:59 09/12/24 08:01 5 MG Budesonide (Pulmicort 0.5 Mg/2ml) 0.5 mg BIDRESP IH 08/26/24 18:00 09/05/24 13:42 DC 09/05/24 06:28 0.5 MG Cefepime HCl (MAXipime 2 gm vial) 2 gm Q12H IVPB 08/26/24 10:00 08/29/24 07:19 DC 08/28/24 23:16 2 GM Cefepime HCl (MAXipime 2 gm vial) 2 gm Q24H IVPB 09/10/24 06:30 09/20/24 06:29 09/12/24 06:08 2 GM Ceftriaxone Sodium 1 gm/ Sodium Chloride 50 ml @ 100 mls/hr BID IV 08/26/24 09:00 08/26/24 01:51 DC Ceftriaxone Sodium (ROCEphine 1G INJ) 1 gm BID IVPB 08/26/24 09:00 08/26/24 09:43 DC 08/26/24 09:15 1 GM Dextrose (D50w) 50 ml AD PRN IV HYPOGLYCEMIA PROTOCOL 08/26/24 02:00 09/25/24 01:59 09/05/24 05:22 50 ML Doxycycline Hyclate 250 ml @ 125 mls/hr Q12H IV 09/11/24 14:30 09/21/24 14:29 09/12/24 13:32 125 MLS/HR Epoetin Eros-epbx (Retacrit) 10,000 unit QTU@1600 SQ 09/02/24 16:00 10/02/24 15:59 09/09/24 18:37 10,000 UNIT Furosemide (LASix 20MG TAB) 20 mg BID PO 09/02/24 21:00 09/02/24 17:14 DC Furosemide (LASix 20MG TAB) 20 mg BID@09,17 PO 09/03/24 17:00 09/05/24 11:36 DC 09/05/24 10:02 20 MG Furosemide (LASix 20MG VIAL) 20 mg Q8H IV 09/05/24 12:00 10/05/24 11:59 09/12/24 13:32 20 MG Glucagon (Glucagon 1mg Kit) 1 mg AD PRN IM HYPOGLYCEMIA PROTOCOL 08/26/24 02:00 09/08/24 19:58 DC Guaifenesin/ Dextromethorphan (RobiTUSSin DM 200/20MG 10ML) 10 ml Q6H PRN PO COUGH 08/31/24 10:30 09/30/24 10:29 Heparin Sodium (Porcine) (HEParin 5,000 UNIT VIAL) 5,000 unit Q12H SQ 08/26/24 21:30 09/01/24 09:57 DC 09/01/24 09:03 5,000 UNIT Hydralazine HCl (APRESOLine 20MG INJ) 10 mg Q6H PRN IV For:SBP above 160;DBP above 90 08/26/24 02:00 09/25/24 01:59 09/07/24 21:09 10 MG Hydralazine HCl ([id number] TAB) 25 mg TID PO 08/26/24 09:00 08/27/24 07:12 DC 08/26/24 21:08 25 MG Hydralazine HCl ([id number] TAB) 50 mg TID PO 08/28/24 09:00 08/28/24 11:31 DC Hydralazine HCl ([id number] TAB) 50 mg TID PO 08/28/24 14:00 09/27/24 13:59 09/12/24 13:32 50 MG Hydralazine HCl ([id number] TAB) 100 mg TID PO 08/27/24 09:00 08/28/24 07:38 DC 08/27/24 09:22 100 MG Hydrochlorothiazide (hydroCHLOROthiazide 25MG) 25 mg DAILY PO 08/29/24 09:00 08/28/24 12:07 DC Insulin Glargine (LANtus 100 UNITS/ML 10 ML VIAL) 10 units BID@0730,2100 SQ 08/29/24 07:30 09/28/24 07:29 09/12/24 06:44 10 UNITS Insulin Human Regular (humuLIN R 100 UNIT/ML 3ML) INSULIN SLIDING SCAL... ACHS SQ 08/26/24 07:30 09/25/24 07:29 09/10/24 21:45 5 UNIT Labetalol HCl (TRANdate 20MG SYG) 10 mg Q6H PRN IV IF SBP GREATER THAN 170 08/26/24 02:00 09/25/24 01:59 08/27/24 05:41 10 MG Lactulose (Constulose 20gm/ 30ml Udcup) 20 gm BID PRN PO CONSTIPATION 08/31/24 13:00 09/30/24 12:59 09/01/24 20:04 20 GM Losartan Potassium (CozAAR 50 mg TAB) 50 mg BID PO 08/27/24 09:00 08/31/24 10:00 DC 08/31/24 09:46 50 MG Magnesium Sulfate 50 ml @ 0 mls/hr PROTOCOL IV 09/06/24 09:30 10/06/24 09:29 09/10/24 09:01 25 MLS/HR Magnesium Sulfate 50 ml @ 0 mls/hr PROTOCOL PRN IV OTHER [SEE ORDER COMMENTS] 08/26/24 02:00 09/06/24 09:32 DC 09/06/24 06:05 25 MLS/HR Melatonin (Melatonin) 5 mg HSPRN PRN PO INSOMNIA 09/01/24 23:00 10/01/24 22:59 09/09/24 21:14 5 MG Methylprednisolone Sodium Succinate (Solu-medROL 40MG) 20 mg Q8H IVP 08/29/24 06:00 08/31/24 12:05 DC 08/31/24 06:33 20 MG Methylprednisolone Sodium Succinate (Solu-medROL 40MG) 40 mg BID IVP 08/27/24 21:00 08/28/24 20:59 DC 08/28/24 09:24 40 MG Metoprolol Tartrate (loprESSOR) 100 mg BID PO 08/26/24 09:00 09/25/24 08:59 09/12/24 08:01 100 MG Montelukast Sodium (SinguLAIR) 10 mg DAILY PO 08/27/24 09:00 09/26/24 08:59 09/12/24 08:01 10 MG Morphine Sulfate (morPHINE 2MG SYG) 2 mg Q4H PRN IV MODERATE PAIN (4-6) 08/26/24 02:00 08/31/24 04:59 DC 08/26/24 06:37 2 MG Nicardipine HCl 20 mg/Sodium Chloride 200 ml @ 0 mls/hr AD PRN IV TITRATE 08/26/24 03:00 08/26/24 02:45 DC Nicardipine HCl 25 mg/Sodium Chloride 250 ml @ 0 mls/hr AD PRN IV TITRATE 08/26/24 03:00 08/27/24 18:03 DC 08/27/24 06:46 50 MLS/HR Nifedipine (adALAT 30MG) 30 mg BID PO 08/28/24 09:00 09/27/24 08:59 09/12/24 08:01 30 MG Nifedipine (adALAT 30MG) 60 mg BID PO 08/27/24 09:00 08/28/24 07:38 DC 08/27/24 07:42 60 MG Nystatin (NystOP 15 GM POWDER) 1 APPLICATION BID TP 09/05/24 21:00 10/05/24 20:59 09/12/24 08:02 1 APPL Ondansetron HCl (zoFRAN 4MG INJ) 4 mg Q6H PRN IV NAUSEA/VOMITING 08/26/24 02:00 09/25/24 01:59 Pantoprazole Sodium (PROTonix 40MG INJ) 40 mg DAILY IVP 08/27/24 09:00 09/26/24 08:59 09/12/24 08:01 40 MG Polyethylene Glycol/ Electrolytes (Golytely/Colyte Soln) 4,000 ml ONCE PO 09/05/24 12:30 09/05/24 13:30 DC 09/05/24 13:52 4,000 ML Potassium Chloride 100 ml @ 100 mls/hr AD PRN IV POTASSIUM PROTOCOL 08/26/24 02:00 09/25/24 01:59 Potassium Chloride (K-Dur 10meq Sr Tab) 10 meq AD PRN PO POTASSIUM PROTOCOL 08/26/24 18:00 09/25/24 01:59 09/11/24 12:54 10 MEQ Potassium Chloride (K-Dur/Klor-Con 20meq) 10 meq AD PRN PO POTASSIUM PROTOCOL 08/26/24 02:00 08/26/24 17:48 DC Potassium Chloride (KCl 10% Elixir 20meq/15ml) 10 meq AD PRN PO POTASSIUM PROTOCOL 08/26/24 02:00 09/25/24 01:59 09/06/24 06:05 10 MEQ Sodium Bicarbonate (Sodium Bicarbonate) 650 mg TID PO 08/28/24 14:00 09/03/24 09:15 DC 09/02/24 21:37 650 MG Sodium Chloride 1,000 ml @ 50 mls/hr Q20H IV 08/26/24 21:00 08/27/24 13:59 DC 08/26/24 21:08 50 MLS/HR Tamsulosin HCl (FloMAX) 0.4 mg BID PO 08/26/24 21:00 09/25/24 20:59 09/12/24 08:01 0.4 MG Vancomycin HCl 250 ml @ 125 mls/hr Q24H IV 08/27/24 12:00 08/29/24 07:19 DC 08/28/24 11:27 125 MLS/HR Vancomycin HCl (Vancomycin Protocol) 1 each AD IV 08/26/24 10:00 08/29/24 07:19 DC Vitamin B Complex/ Vit C/Folic Acid (Nephrovite Tablet) 1 cap DAILY PO 08/26/24 09:00 09/25/24 08:59 09/12/24 08:01 1 CAP Wound Care/ Dressing Products (Venelex Ointment) 1 APPL TID TP 08/26/24 21:00 09/25/24 20:59 09/12/24 13:38 1 GM Diagnostics / Radiology: [COPY/PASTE HERE IF NO REPORTS PLEASE DELETE SECTION] Assessment: Abnormal imaging with dilated loops of colon Plan: Patient cleared for discharge EDWIN LAGOS GARNISHER Sep 12, 2024 13:52
--- NOTE | 2024-09-12 15:36 | PN ---
[facility] PROGRESS NOTE Date of Service: Sep 12, 2024 Time of Service: 15:32 SUBJECTIVE: 08/27 Pt seen at bedside, no acute events overnight. Pt weaned off cardene drip, started on PO medications. Will monitor throughout the day and possibly dc tomorrow if BP remains stable 08/28 Pt seen at bedside, no acute events overnight. Pt blood pressure well controlled however he has significant wheeze, rhoncous breathing and cough. Will continue with nebulizers and systemic steroid treatment. CO2 low, will order ABG and follow up. Pt mildly delirius today but responds appropriately 08/29 patient seen at bedside, no acute events overnight. He is still has prominent wheeze and rhonchus breathing. There was no evidence of pneumonia on initial workup, chest x-ray was clear and procalcitonin was in normal range. We will discontinue antibiotics at this time and continue with nebulizers and syste lazaro steroids. As patient has been somewhat confused holding cefepime may help improve his mental status however he is also on systemic steroids which can also contribute to some delirium. Physical therapy recommending [facility] for rehab, we will consult case management for placement. Patient blood sugars have been elevated we will start glargine 10 units twice daily. Creatinine increased from 2.3 up to 2.8, patient was started on bicarbonate yesterday, we will continue to monitor his urine output. 08/30 patient seen at bedside, no acute events overnight. His wheeze has improved significantly today, he is sitting at bedside on room air now. We will continue with nebulizers and systemic steroids. He is pending placement to [facility]. 08/31 patient seen at bedside, no acute events overnight. He has no complaints at bedside, breathing appears to be improved, he continues on room air. Family recommending [facility] placement. His BUN/creatinine continue to up trend to 91 and 3.4. He has no history of heart failure, we will bolus 1 L and follow up with his renal function tomorrow. Nephrology consulted for further recommendations. 09/01 blood pressure 126/45, afebrile, saturating normal on room air. CBC shows a hemoglobin of 8.6, hematocrit 25.4, WBC of 12.3, platelet count of 252. Sodium 137, potassium 3.2, BUN of 93, creatinine of 3.3, bicarb of 20. ABG with a pH of 7.37, pCO2 24, bicarbonate of 13.8. Currently the patient on sodium bicarbonate 650 mg p.o. t.i.d.. Nephrology consultation requested, continue to follow input and recommendations. Family recommended [facility] facility, we will discuss with case management. 09/02 patient's blood pressure 162/56, afebrile, saturating normal on room air. Case discussed with the RN, patient has a large bowel movement this morning, he feels hungry. During my visit he is comfortable sitting in the chair, he feels less distended and better today compared to yesterday. Denies nausea, no vomiting, no abdominal pain. BP done yesterday was showing abnormal bowel gas pattern, ileus favored over low colon obstruction. CT of the abdomen showing mildly dilated air-filled loops of colon, no transition some findings most consistent with gastroenteritis or ileus, no transition zone to suggest ob struction, moderate bilateral renal cortical thinning, minimal bilateral pleural effusions. Surgical consultation requested, we will follow input and recommendation, we will repeat KUB, we will possibly start clear liquid diet. Patient is still with urinary retention, we will attempt to insert Griffin catheter today, if unable we will request Urology consult. Patient noted to have mild bilateral lower extremity edema, we will start Lasix 20 mg p.o. b.i.d.. 09/03 the patient remains admitted to the medical floor, case discussed with the RN, the patient back in the room, unable to lie flat for the Gastrografin enema per surgery recommendation. During my visit patient awake, following commands, not in distress. He remains hemodynamically stable. Hemoglobin 9.3, currently tolerating diet, passing gas. Patient evaluated by General surgery, abdominal distention concerning for sigmoid volvulus. Case discussed with the surgery, GI consulted for decompressive sigmoidoscopy, case discussed, plan to do tomorrow. 09/04 patient is seen and examined at bedside, back in the room, per discussion with the RN, refused flexible sigmoidoscopy. He is alert oriented x3, discussed with the patient the importance of having the procedure done, however the patient refused, he stated that he does not want any further medical management, he wants to go back to [facility] facility with the hospice services. He is a DNR/DNI. We will discuss with the daughter she is available at bedside. 09/05 patient remains admitted to the medical floor, long discussion was done yesterday with the patient in the room in front of her daughter, regarding the importance of having the flexible sigmoidoscopy done. I discussed with the patient that if he refused, and he wanted to go to the [facility] facility with hospice services I could arrange for that per records not start him on a diet until we will rule out the possibility of volvulus. After a very long discussion the the patient agreed to have the flexible sigmoidoscopy. Today blood pressure 160/64, afebrile, saturating normal on room air. Hemoglobin stable 10.1, hematocrit 29.7. During my visit the patient is back in the room from having flexible sigmoidoscopy, with the following findings: -the perianal and digital rectal examination were normal. Solid stool was found in the rectum, in the sigmoid colon, in the descending colon and in the transfer colon, interfering with a fistulization. Lavage of the area was performed, resulting in incomplete clearance with continued poor visualization. A colonic decompression tube was placed. Impression: -preparation of the colon was poor. -stool in the rectum, in the sigmoid colon, in the descending colon and in the transverse colon. -no specimens collected. Recommendations: -[facility] care -clear liquid diet -continue present medications -obtain KUB -give GoLYTELY 500 cc per colon tube every 4 hours -start bisacodyl 5 mg p.o. b.i.d. KUB REVIEWED, GASEOUS DISTENTION OF THE COLON, EXPECTED ON BASIS OF RECENT CO LONOSCOPY, NO SIGNIFICANT ABNORMALITIES OTHERWISE. 09/06 patient is seen and examined at bedside, case discussed with the RN, no acute events overnight, patient resting comfortable in bed, abdomen is more soft, tolerating clear liquid diet. Patient had good bowel movement after GoLYTELY 500 cc per: Tube giving every 4 hours and starting bisacodyl, we will advance diet to full liquid diet. Case management consulted, authorization recent for the patient to get approved to [facility] facility. Discussed with the patient. 09/07 patient is seen and examined at bedside, case discussed with the RN, no acute events overnight, passing gas, moving bowel. Recent KUB and CT of the abdomen, possible ileus versus small-bowel obstruction, surgical consultation requested, concern for possible volvulus, patient initially refused Gastrografin enema, GI consultation requested, flexible sigmoidoscopy done,stool in the rectum, in the sigmoid colon, in the descending colon and in the transverse colon. Recommended give GoLYTELY 500 cc per colon tube every 4 hours for 2 days and bisacodyl 5 mg p.o. b.i.d. continue to follow GI input and recommendation. Patient with a mild anasarca, Lasix increased to 20 mg IV q.8 hours, improved. Discussed with case management, reauthorization submitted for SNF placement. 09/08 No acute events overnight. Colon tube still in place, will follow up with GI regarding when to remove. Last reported BM yesterday. Pending SNF placement once cleared 09/09 Pt initially discharged however he was unable to transfer to chair and asked for placement to rehab. Case management to assist 09/10 no acute events overnight. Patient to continue with PT/OT. WBC uptrending, will start cefepime and order lactic acid. Potassium low at 3.2, will replete according to protocol. Continue rehab with PT/OT, pending placement 09/11 no acute events overnight. Patient febrile this morning with a T-max of a 101.5, yesterday she was started on cefepime, we will start doxycycline in order repeat blood cultures and urine cultures. influenza and covid panel will be ordered. 09/12 patient is seen and examined at bedside, comfortable in bed, alert oriented x3, tolerating full liquid diet. blood pressure 152/56. He had a temperature 101.5 09/11/2024 at 9:28 a.m.. He was started on cefepime and doxycycline. Serology test to include influenza, SARS antigen negative. Leukocytosis trending down, today 11.8, hemoglobin 8.6, hematocrit 26.6. Potassium 3.5, creatinine stable 2.3. Blood culture and urine culture in process. We will advance diet to GI soft diet. Case discussed with the RN, case management has reason admitted authorization to [facility]. REVIEW OF SYSTEMS 12 point ROS negative unless noted in HPI PHYSICAL EXAM GENERAL APPEARANCE: The patient is awake, alert, and oriented, in no acute cardiopulmonary distress. NEUROLOGICAL: Cranial nerves II-XII grossly intact. Motor is 5/5 in bilateral upper and lower extremities proximal to distal. No sensory deficits. HEENT: Face is symmetric. Pupils are equal and reactive. Extraocular movements are intact. NECK: Supple. No JVD. No thyromegaly. No submental, submandibular, pre-/p ostauricular, occipital or supraclavicular lymphadenopathy. CHEST: Normal chest expansion. No Telemetry. LUNGS: no wheezing, no rhonchi, no rales CARDIOVASCULAR: Regular. S1 and S2 normal. No appreciable rubs, murmurs or gallops. ABDOMEN: Less distended, bowel sounds present. No tenderness to palpation. : Deferred. No Griffin. EXTREMITIES: No clubbing. Good capillary refill. SKIN: No skin breakdown. Vital Signs (last 8hr) Date Time Temp Pulse Resp B/P (MAP) Pulse Ox O2 Delivery O2 Flow Rate FiO2 09/12/24 12:00 98.4 68 19 152/56 96 Room Air 09/12/24 08:26 98.4 74 17 157/57 96 Room Air LABS: Laboratory: Test 09/12/24 12:16 09/12/24 03:43 09/11/24 14:55 Range/Units Whole Blood Glucose 105 70-110 MG/DL White Blood Count 11.8 #H 4.8-10.8 K/uL Red Blood Count 2.88 L 4.50-6.20 MIL/uL Hemoglobin 8.6 L 14.0-18.0 g/dL Hematocrit 26.6 L 42-54 % Mean Corpuscular Volume 92.4 79-99 fL Mean Corpuscular Hemoglobin 29.9 27.0-33.0 pg Mean Corpuscular Hemoglobin Concent 32.3 32.0-36.0 g/dL Red Cell Distribution Width 13.9 11.0-15.5 % Platelet Count 214 130-400 K/uL Mean Platelet Volume 10.5 7.5-10.5 fL Immature Granulocyte % (Auto) 0.5 0-1 % Neutrophils (%) (Auto) 79.4 H 40.0-77.0 % Lymphocytes (%) (Auto) 9.9 L 21.0-51.0 % Monocytes (%) (Auto) 9.0 3.0-13.0 % Eosinophils (%) (Auto) 0.9 0.0-8.0 % Basophils (%) (Auto) 0.3 0.0-5.0 % Neutrophils # (Auto) 9.4 H 1.8-7.7 K/uL Lymphocytes # (Auto) 1.2 1.0-4.8 K/uL Monocytes # (Auto) 1.1 H 0.1-1.0 K/uL Eosinophils # (Auto) 0.11 0.00-0.70 K/uL Basophils # (Auto) 0.03 0.00-0.20 K/uL Absolute Immature Granulocyte (auto 0.06 0-1 K/uL Nucleated Red Blood Cells 0.0 0.0-0.19 % Sodium Level 136 136-145 mmol/L Potassium Level 3.5 3.5-5.1 mmol/L Chloride Level 100 L 101-111 mmol/L Carbon Dioxide Level 22 21-32 mmol/L Blood Urea Nitrogen 48 H 7-18 mg/dL Creatinine 2.3 H 0.5-1.3 mg/dL Glomerular Filtration Rate Calc 28 >90 mL/min Random Glucose 120 H 70-105 mg/dL Total Calcium 8.1 L 8.5-10.1 mg/dL Influenza Type A Antigen Negative For Type A NEGATIVE Influenza Type B Antigen Negative For Type B NEGATIVE SARS-CoV-2 Antigen (Rapid) PRESUMPTIVE NEGATIVE NEGATIVE Current Medications Medications (Trade) Dose Ordered Sig/Abhijit Route PRN Reason Start Time Stop Time Status Last Admin Dose Admin Acetaminophen (TYLenol 325MG TAB) 650 mg Q4H PRN PO MILD PAIN (1-3) 08/26/24 02:00 09/25/24 01:59 09/10/24 05:10 650 MG Acetaminophen (TYLenol 325MG TAB) 650 mg Q6H PRN PO TEMPERATURE GREATER THAN 101.5 08/26/24 02:00 09/25/24 01:59 09/11/24 09:28 650 MG Acetylcysteine (MUComyst 10% 4ML) 400mg = 4ml [id number] 09/03/24 00:00 09/05/24 13:40 DC 09/05/24 11:08 400 MG Albuterol (DUOneb) 1 udvial BIDRESP 09/05/24 18:00 09/25/24 01:59 Albuterol (DUOneb) 1 udvial [id number] 08/26/24 02:00 09/05/24 10:01 DC 09/05/24 06:28 1 UDVIAL Albuterol (DUOneb) 1 udvial [id number] 09/05/24 12:00 09/05/24 13:40 DC 09/05/24 11:07 1 UDVIAL Amlodipine Besylate (NorvASC 5MG TAB) 5 mg DAILY PO 08/27/24 09:00 08/27/24 07:12 DC Apixaban (EliquIS 2.5 mg) 2.5 mg BID PO 09/02/24 21:00 09/03/24 14:24 DC 09/02/24 21:38 2.5 MG Apixaban (EliquIS 2.5 mg) 2.5 mg BID PO 09/05/24 21:00 10/05/24 20:59 09/12/24 08:01 2.5 MG Apixaban (EliquIS) 5 mg BID PO 09/01/24 21:00 09/02/24 16:46 DC 09/02/24 08:56 5 MG Apixaban (EliquIS) 5 mg BID PO 09/03/24 21:00 09/03/24 14:19 DC Bisacodyl (DulcoLAX 5MG TAB) 5 mg BID PO 09/05/24 21:00 10/05/24 20:59 09/12/24 08:01 5 MG Budesonide (Pulmicort 0.5 Mg/2ml) 0.5 mg BIDRESP 08/26/24 18:00 09/05/24 13:42 DC 09/05/24 06:28 0.5 MG Cefepime HCl (MAXipime 2 gm vial) 2 gm Q12H IVPB 08/26/24 10:00 08/29/24 07:19 DC 08/28/24 23:16 2 GM Cefepime HCl (MAXipime 2 gm vial) 2 gm Q24H IVPB 09/10/24 06:30 09/20/24 06:29 09/12/24 06:08 2 GM Ceftriaxone Sodium 1 gm/ Sodium Chloride 50 ml @ 100 mls/hr BID IV 08/26/24 09:00 08/26/24 01:51 DC Ceftriaxone Sodium (ROCEphine 1G INJ) 1 gm BID IVPB 08/26/24 09:00 08/26/24 09:43 DC 08/26/24 09:15 1 GM Dextrose (D50w) 50 ml AD PRN IV HYPOGLYCEMIA PROTOCOL 08/26/24 02:00 09/25/24 01:59 09/05/24 05:22 50 ML Doxycycline Hyclate 250 ml @ 125 mls/hr Q12H IV 09/11/24 14:30 09/21/24 14:29 09/12/24 13:32 125 MLS/HR Epoetin Eros-epbx (Retacrit) 10,000 unit QTU@1600 SQ 09/02/24 16:00 10/02/24 15:59 09/09/24 18:37 10,000 UNIT Furosemide (LASix 20MG TAB) 20 mg BID PO 09/02/24 21:00 09/02/24 17:14 DC Furosemide (LASix 20MG TAB) 20 mg BID@,17 PO 09/03/24 17:00 09/05/24 11:36 DC 09/05/24 10:02 20 MG Furosemide (LASix 20MG VIAL) 20 mg Q8H IV 09/05/24 12:00 10/05/24 11:59 09/12/24 13:32 20 MG Glucagon (Glucagon 1mg Kit) 1 mg AD PRN IM HYPOGLYCEMIA PROTOCOL 08/26/24 02:00 09/08/24 19:58 DC Guaifenesin/ Dextromethorphan (RobiTUSSin DM 200/20MG 10ML) 10 ml Q6H PRN PO COUGH 08/31/24 10:30 09/30/24 10:29 Heparin Sodium (Porcine) (HEParin 5,000 UNIT VIAL) 5,000 unit Q12H SQ 08/26/24 21:30 09/01/24 09:57 DC 09/01/24 09:03 5,000 UNIT Hydralazine HCl (APRESOLine 20MG INJ) 10 mg Q6H PRN IV For:SBP above 160;DBP above 90 08/26/24 02:00 09/25/24 01:59 09/07/24 21:09 10 MG Hydralazine HCl ([id number] TAB) 25 mg TID PO 08/26/24 09:00 08/27/24 07:12 DC 08/26/24 21:08 25 MG Hydralazine HCl ([id number] TAB) 50 mg TID PO 08/28/24 09:00 08/28/24 11:31 DC Hydralazine HCl ([id number] TAB) 50 mg TID PO 08/28/24 14:00 09/27/24 13:59 09/12/24 13:32 50 MG Hydralazine HCl ([id number] TAB) 100 mg TID PO 08/27/24 09:00 08/28/24 07:38 DC 08/27/24 09:22 100 MG Hydrochlorothiazide (hydroCHLOROthiazide 25MG) 25 mg DAILY PO 08/29/24 09:00 08/28/24 12:07 DC Insulin Glargine (LANtus 100 UNITS/ML 10 ML VIAL) 10 units BID@0730,2100 SQ 08/29/24 07:30 09/28/24 07:29 09/12/24 06:44 10 UNITS Insulin Human Regular (humuLIN R 100 UNIT/ML 3ML) INSULIN SLIDING SCAL... ACHS SQ 08/26/24 07:30 09/25/24 07:29 09/10/24 21:45 5 UNIT Labetalol HCl (TRANdate 20MG SYG) 10 mg Q6H PRN IV IF SBP GREATER THAN 170 08/26/24 02:00 09/25/24 01:59 08/27/24 05:41 10 MG Lactulose (Constulose 20gm/ 30ml Udcup) 20 gm BID PRN PO CONSTIPATION 08/31/24 13:00 09/30/24 12:59 09/01/24 20:04 20 GM Losartan Potassium (CozAAR 50 mg TAB) 50 mg BID PO 08/27/24 09:00 08/31/24 10:00 DC 08/31/24 09:46 50 MG Magnesium Sulfate 50 ml @ 0 mls/hr PROTOCOL IV 09/06/24 09:30 10/06/24 09:29 09/10/24 09:01 25 MLS/HR Magnesium Sulfate 50 ml @ 0 mls/hr PROTOCOL PRN IV OTHER [SEE ORDER COMMENTS] 08/26/24 02:00 09/06/24 09:32 DC 09/06/24 06:05 25 MLS/HR Melatonin (Melatonin) 5 mg HSPRN PRN PO INSOMNIA 09/01/24 23:00 10/01/24 22:59 09/09/24 21:14 5 MG Methylprednisolone Sodium Succinate (Solu-medROL 40MG) 20 mg Q8H IVP 08/29/24 06:00 08/31/24 12:05 DC 08/31/24 06:33 20 MG Methylprednisolone Sodium Succinate (Solu-medROL 40MG) 40 mg BID IVP 08/27/24 21:00 08/28/24 20:59 DC 08/28/24 09:24 40 MG Metoprolol Tartrate (loprESSOR) 100 mg BID PO 08/26/24 09:00 09/25/24 08:59 09/12/24 08:01 100 MG Montelukast Sodium (SinguLAIR) 10 mg DAILY PO 08/27/24 09:00 09/26/24 08:59 09/12/24 08:01 10 MG Morphine Sulfate (morPHINE 2MG SYG) 2 mg Q4H PRN IV MODERATE PAIN (4-6) 08/26/24 02:00 08/31/24 04:59 DC 08/26/24 06:37 2 MG Nicardipine HCl 20 mg/Sodium Chloride 200 ml @ 0 mls/hr AD PRN IV TITRATE 08/26/24 03:00 08/26/24 02:45 DC Nicardipine HCl 25 mg/Sodium Chloride 250 ml @ 0 mls/hr AD PRN IV TITRATE 08/26/24 03:00 08/27/24 18:03 DC 08/27/24 06:46 50 MLS/HR Nifedipine (adALAT 30MG) 30 mg BID PO 08/28/24 09:00 09/27/24 08:59 09/12/24 08:01 30 MG Nifedipine (adALAT 30MG) 60 mg BID PO 08/27/24 09:00 08/28/24 07:38 DC 08/27/24 07:42 60 MG Nystatin (NystOP 15 GM POWDER) 1 APPLICATION BID TP 09/05/24 21:00 10/05/24 20:59 09/12/24 08:02 1 APPL Ondansetron HCl (zoFRAN 4MG INJ) 4 mg Q6H PRN IV NAUSEA/VOMITING 08/26/24 02:00 09/25/24 01:59 Pantoprazole Sodium (PROTonix 40MG INJ) 40 mg DAILY IVP 08/27/24 09:00 09/26/24 08:59 09/12/24 08:01 40 MG Polyethylene Glycol/ Electrolytes (Golytely/Colyte Soln) 4,000 ml ONCE PO 09/05/24 12:30 09/05/24 13:30 DC 09/05/24 13:52 4,000 ML Potassium Chloride 100 ml @ 100 mls/hr AD PRN IV POTASSIUM PROTOCOL 08/26/24 02:00 09/25/24 01:59 Potassium Chloride (K-Dur 10meq Sr Tab) 10 meq AD PRN PO POTASSIUM PROTOCOL 08/26/24 18:00 09/25/24 01:59 09/11/24 12:54 10 MEQ Potassium Chloride (K-Dur/Klor-Con 20meq) 10 meq AD PRN PO POTASSIUM PROTOCOL 08/26/24 02:00 08/26/24 17:48 DC Potassium Chloride (KCl 10% Elixir 20meq/15ml) 10 meq AD PRN PO POTASSIUM PROTOCOL 08/26/24 02:00 09/25/24 01:59 09/06/24 06:05 10 MEQ Sodium Bicarbonate (Sodium Bicarbonate) 650 mg TID PO 08/28/24 14:00 09/03/24 09:15 DC 09/02/24 21:37 650 MG Sodium Chloride 1,000 ml @ 50 mls/hr Q20H IV 08/26/24 21:00 08/27/24 13:59 DC 08/26/24 21:08 50 MLS/HR Tamsulosin HCl (FloMAX) 0.4 mg BID PO 08/26/24 21:00 09/25/24 20:59 09/12/24 08:01 0.4 MG Vancomycin HCl 250 ml @ 125 mls/hr Q24H IV 08/27/24 12:00 08/29/24 07:19 DC 08/28/24 11:27 125 MLS/HR Vancomycin HCl (Vancomycin Protocol) 1 each AD IV 08/26/24 10:00 08/29/24 07:19 DC Vitamin B Complex/ Vit C/Folic Acid (Nephrovite Tablet) 1 cap DAILY PO 08/26/24 09:00 09/25/24 08:59 09/12/24 08:01 1 CAP Wound Care/ Dressing Products (Venelex Ointment) 1 APPL TID TP 08/26/24 21:00 09/25/24 20:59 09/12/24 13:38 1 GM DIAGNOSTICS / RADIOLOGY: [ ] ASSESSMENT: Sepsis POA Acute kidney injury POA Recurrent fevers Kidney stone POA Hypertensive urgency POA Acute normocytic normochromic anemia POA Acute leukocytosis POA CHF POA Debility POA Diabetes POA Hyponatremia POA Dehydration POA Hyperlipidemia POA 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 Atrial fibrillation on chronic anticoagulation POA Sacral ulcer POA Abdominal distention, possible ileus versus concern for sigmoid volvulus Urinary retention with indwelling Griffin catheter in place PLAN: Patient remains admitted to the medical floor Repeat cultures ordered, will follow up Continue doxycycline, continue cefepime Continue full liquid diet advanced as tolerated Discussed with case management, reauthorization submitted for discharge plan to SNF Continue colon tube with lactulose infusions Continue eliquis 2.5mg BID Continue Furosemide 20mg TID Continue glargine 10U BID Contiunue sliding scale, wean as able Continue nifedipine 30mg BID Continue tamsulosin 0.4mg BID Continue metoprolol 100mg BID NEURO: Minimize central acting medications as possible. Fall Precautions. Well lighted room through the day and minimize interruptions through the night to prevent acute delirium. PULMONARY: Supplemental 02 as needed BiPAP as necessary, for respiratory distress Titrate Fio2 to keep Spo2 > or = 90% DuoNebs and CPT as needed IS hourly while awake for pulmonary hygiene prn Out of bed to chair as tolerated Maintain aspiration precautions at all times CARDIOVASCULAR: Follow hemodynamics. Vital signs per facility protocol GI & NUTRITION: Continue nutritional support Aspirations precautions Prokinetic agents and laxatives as needed KIDNEYS & ELECTROLYTES: Strict monitoring of intake and output Daily weights Avoid nephrotoxic agents Monitor electrolytes and replace as needed Goal urine output of 30mL/hr or 0.5mL/kg/hr Medications to be dosed according to renal function. Avoid contrast if possible ENDOCRINE: Maintain blood glucose between 100-180 at all times. Insulin sliding scale for blood glucose management Hypoglycemia and hyperglycemia protocol in place INFECTIOUS DISEASE: Trend temperature, WBC and procalcitonin level Follow cultures, deescalate antibiotics as soon as possible. Panculture if new onset fever HEMATOLOGY & COAGULATION: Monitor H&H. Keep Hgb > 7 Transfuse 1 unit of PRBC for Hgb < 7 Transfuse 1 pack of platelets of platelets < 20, 000 Watch for any signs and symptoms of bleeding SKIN: Pressure ulcer prevention per facility protocol Specialty mattress as needed ORTHO/REHAB Continue PT/OT PRN: MEDICATIONS Tylenol 650 mg po every 4 hrs for fever zofran 4 mg IV every 6 hrs for n/v Hydralazine 5 mg IV every 4 hrs systolic pressure > 160 bowel regiment: lactulose 20 gm PO BID PRN constipation Supportive measures: Continue GI and DVT prophylaxis Disposition: Pending improvement in clinical condition All questions answered time spent: > 35 min BRIANNA MENDEZ MD Sep 12, 2024 15:36
--- NOTE | 2024-09-12 21:18 | PN ---
FOLLOWUP PROGRESS NOTE SUBJECTIVE: An 78-year-old male who has had a prolonged hospital course. The patient initially admitted, found to have acute on chronic renal failure. The patient has coronary artery disease and volume overload. He remains on the diuretics. The patient with BPH, remains with Griffin in place and he is being seen as a followup visit for all of the above. REVIEW OF SYSTEMS: CONSTITUTIONAL: He is feeling weak and tired. HEENT: No change in vision. No change in hearing. CARDIOVASCULAR: There is no current chest pain or palpitations. PULMONARY: Denies any shortness of breath. GASTROINTESTINAL: He is tolerating a diet. MUSCULOSKELETAL: Complains of weakness. OBJECTIVE: VITAL SIGNS: Blood pressure 152/56, pulse 60s, he is afebrile. GENERAL: He is a chronically ill elderly male, lying in bed on the medical floor. HEENT: Head is atraumatic. Pupils are equal, roving to light. Oropharynx is without exudate. Nares are clear. NECK: There is no JVP. There is no thyromegaly, no mass. CARDIOVASCULAR: Regular. There is no S3, S4 gallop. LUNGS: Coarse with equal thoracic movement. ABDOMEN: Soft, nondistended, and nontender. EXTREMITIES: Reveal no clubbing, no cyanosis. NEUROLOGICAL: He is awake. He is alert. LABORATORY DATA: Hemoglobin 8.6, hematocrit 26, white cell count is 11,000. BUN 48, creatinine 2.3. IMPRESSION: * Acute on chronic renal failure. * Coronary artery disease. * Hypertension. * BPH. * Debilitation. PLAN: The patient continues with underlying renal dysfunction. The patient's creatinine has remained fairly stable. He remains with a Griffin catheter in place and we will continue to follow closely. The patient is being seen by Case Management for final disposition, which will be in a long-term and we will follow closely. TID: [id number] RECEIPT: [id number]
[2024-09-13 02:08] VITALS: PULSE 71; RESP 22; O2SAT 96
[2024-09-13 03:30] VITALS: BP 140/49; PULSE 64; RESP 20; TEMP 97.4
[2024-09-13 04:14] LABS: HEMATOCRIT 25.5 % (42-54); MEAN CORPUSCULAR HEMOGLOBIN 29.7 pg (27.0-33.0); MEAN CORPUSCULAR HGB CONC 33.3 g/dL (32.0-36.0); MEAN CORPUSCULAR VOLUME 89.2 fL (79-99); RED BLOOD CELL COUNT(AUTO) 2.86 MIL/uL (4.50-6.20); RED CELL DISTRIBUTION WIDTH 13.9 % (11.0-15.5); WHITE BLOOD COUNT (AUTO) 7.9 K/uL (4.8-10.8)
[2024-09-13 04:33] LABS: BILIRUBIN,TOTAL 0.4 mg/dL (0.2-1.0); CREATININE 2.1 mg/dL (0.5-1.3); MAGNESIUM 1.8 mg/dL (1.80-2.40); POTASSIUM 3.1 mmol/L (3.5-5.1); TOTAL PROTEIN, SERUM 5.8 g/dL (6.0-8.3)
[2024-09-13 08:00] VITALS: BP 122/59; PULSE 66; RESP 18; TEMP 98.4; O2SAT 98
[2024-09-13] MEDS: PoTASSium chloRIDE 20MEQ ER 20 MEQ ERTAB PO ONE (10:00)
[2024-09-13] MEDS ORDERED: MAGNESIUM 2GM PREMIX 50ML 50 ML IV SCH (10:00)
--- NOTE | 2024-09-13 10:30 | NUR ---
cm note spoke to suly from [facility] and states pt has been accepted. updated primary nurse.
[2024-09-13 12:00] VITALS: BP 167/45; PULSE 71; RESP 17; TEMP 97.9
--- NOTE | 2024-09-13 12:04 | DS ---
Discharge Summary Hospital Course Summary: This is an 78-year-old male with past medical history of CHF, type 2 diabetes, hypertension, hyperlipidemia, CKD stage 3, atrial fibrillation on chronic anticoagulation with Eliquis, anemia, morbid obesity, BPH and coronary artery disease with CABG x3,PPM/AICD was brought by EMS to the ED August 26, 2024 for complaints of fever, diarrhea and abdominal pain. Patient stated he has had a non bloody diarrhea x 3 episodes to day. Patient also reported he has involuntary tremors to right hand and stated he has a Parkinson,s disease. Upon ER arrival patient's vital signs temperature a 100, heart rate 80, blood pressure 180/85 saturation 96% on 1 L. Seen and examined patient in the ER awake,alert and coherent ,appears comfortable. Patient denied chest pain,palpitation,cough and shortness of breath. In the ER Latest vital signs temperature 98.4, heart rate 80, blood pressure 175/70 saturation 95% on room air. Labs: WBC 18.8, neutrophils 78, hemoglobin 10, hematocrit 30 platelet count 220. Sodium 135, chloride 100, BUN 52, creatinine 2.1, GFR 31, glucose 162 lactic acid 1.6 troponin 69 BNP 210. Urinalysis remarkable for protein, glucose and trace urine occult blood and urine WBC 2-5. Influenza type a and B negative SARs COVID negative strep rapid negative. Preliminary result on CT abdomen and pelvis without contrast result revealed nonobstructing renal pelvic calculus on the right measures 7 x 4 mm the small and large bowel are normal. No evidence for appendicitis the urinary bladder is normal although the base is not well visualized secondary to streak artifact with from bilateral total hip replacements. While in the ER patient received albuterol, labetalol 10 mg IV, Rocephin 1 g IV and fluid resuscitation of NS 30 mL/kilogram over 3 hours. Patient was admitted for further evaluation and medical management. 08/27 Pt seen at bedside, no acute events overnight. Pt weaned off cardene drip, started on PO medications. Will monitor throughout the day and possibly dc tomorrow if BP remains stable 08/28 Pt seen at bedside, no acute events overnight. Pt blood pressure well controlled however he has significant wheeze, rhoncous breathing and cough. Will continue with nebulizers and systemic steroid treatment. CO2 low, will order ABG and follow up. Pt mildly delirius today but responds appropriately 08/29 patient seen at bedside, no acute events overnight. He is still has prominent wheeze and rhonchus breathing. There was no evidence of pneumonia on initial workup, chest x-ray was clear and procalcitonin was in normal range. We will discontinue antibiotics at this time and continue with nebulizers and systemic steroids. As patient has been somewhat confused holding cefepime may help improve his mental status however he is also on systemic steroids which can also contribute to some delirium. Physical therapy recommending correction for rehab, we will consult case management for placement. Patient blood sugars have been elevated we will start glargine 10 units twice daily. Creatinine increased from 2.3 up to 2.8, patient was started on bicarbonate yesterday, we will continue to monitor his urine output. 08/30 patient seen at bedside, no acute events overnight. His wheeze has improved significantly today, he is sitting at bedside on room air now. We will continue with nebulizers and systemic steroids. He is pending placement to correction. 08/31 patient seen at bedside, no acute events overnight. He has no complaints at bedside, breathing appears to be improved, he continues on room air. Family recommending correction placement. His BUN/creatinine continue to up trend to 91 and 3.4. He has no history of heart failure, we will bolus 1 L and follow up with his renal function tomorrow. Nephrology consulted for further recommendations. 09/01 blood pressure 126/45, afebrile, saturating normal on room air. CBC shows a hemoglobin of 8.6, hematocrit 25.4, WBC of 12.3, platelet count of 252. Sodium 137, potassium 3.2, BUN of 93, creatinine of 3.3, bicarb of 20. ABG with a pH of 7.37, pCO2 24, bicarbonate of 13.8. Currently the patient on sodium bicarbonate 650 mg p.o. t.i.d.. Nephrology consultation requested, continue to follow input and recommendations. Family recommended correction facility, we will discuss with case management. 09/02 patient's blood pressure 162/56, afebrile, saturating normal on room air. Case discussed with the RN, patient has a large bowel movement this morning, he feels hungry. During my visit he is comfortable sitting in the chair, he feels less distended and better today compared to yesterday. Denies nausea, no vomiting, no abdominal pain. BP done yesterday was showing abnormal bowel gas pattern, ileus favored over low colon obstruction. CT of the abdomen showing mildly dilated air-filled loops of colon, no transition some findings most consistent with gastroenteritis or ileus, no transition zone to suggest obstruction, moderate bilateral renal cortical thinning, minimal bilateral pleural effusions. Surgical consultation requested, we will follow input and recommendation, we will repeat KUB, we will possibly start clear liquid diet. Patient is still with urinary retention, we will attempt to insert Griffin catheter today, if unable we will request Urology consult. Patient noted to have mild bilateral lower extremity edema, we will start Lasix 20 mg p.o. b.i.d.. 09/03 the patient remains admitted to the medical floor, case discussed with the RN, the patient back in the room, unable to lie flat for the Gastrografin enema per surgery recommendation. During my visit patient awake, following commands, not in distress. He remains hemodynamically stable. Hemoglobin 9.3, currently tolerating diet, passing gas. Patient evaluated by General surgery, abdominal distention concerning for sigmoid volvulus. Case discussed with the surgery, GI consulted for decompressive sigmoidoscopy, case discussed, plan to do tomorrow. 09/04 patient is seen and examined at bedside, back in the room, per discussion with the RN, refused flexible sigmoidoscopy. He is alert oriented x3, discussed with the patient the importance of having the procedure done, however the patient refused, he stated that he does not want any further medical management, he wants to go back to correction facility with the hospice services. He is a DNR/DNI. We will discuss with the daughter she is available at bedside. 09/05 patient remains admitted to the medical floor, long discussion was done yesterday with the patient in the room in front of her daughter, regarding the importance of having the flexible sigmoidoscopy done. I discussed with the patient that if he refused, and he wanted to go to the correction facility with hospice services I could arrange for that per records not start him on a diet until we will rule out the possibility of volvulus. After a very long discussion the the patient agreed to have the flexible sigmoidoscopy. Today blood pressure 160/64, afebrile, saturating normal on room air. Hemoglobin stab le 10.1, hematocrit 29.7. During my visit the patient is back in the room from having flexible sigmoidoscopy, with the following findings: -the perianal and digital rectal examination were normal. Solid stool was found in the rectum, in the sigmoid colon, in the descending colon and in the transfer colon, interfering with a fistulization. Lavage of the area was performed, resulting in incomplete clearance with continued poor visualization. A colonic decompression tube was placed. Impression: -preparation of the colon was poor. -stool in the rectum, in the sigmoid colon, in the descending colon and in the transverse colon. -no specimens collected. Recommendations: -[facility] to [facility] care -clear liquid diet -continue present medications -obtain KUB -give GoLYTELY 500 cc per colon tube every 4 hours -start bisacodyl 5 mg p.o. b.i.d. KUB REVIEWED, GASEOUS DISTENTION OF THE COLON, EXPECTED ON BASIS OF RECENT COLONOSCOPY, NO SIGNIFICANT ABNORMALITIES OTHERWISE. 09/06 patient is seen and examined at bedside, case discussed with the RN, no acute events overnight, patient resting comfortable in bed, abdomen is more soft, tolerating clear liquid diet. Patient had good bowel movement after GoLYTELY 500 cc per: Tube giving every 4 hours and starting bisacodyl, we will advance diet to full liquid diet. Case management consulted, authorization recent for the patient to get approved to correction facility. Discussed with the patient. 09/07 patient is seen and examined at bedside, case discussed with the RN, no acute events overnight, passing gas, moving bowel. Recent KUB and CT of the abdomen, possible ileus versus small-bowel obstruction, surgical consultation requested, concern for possible volvulus, patient initially refused Gastrografin enema, GI consultation requested, flexible sigmoidoscopy done,stool in the rectum, in the sigmoid colon, in the descending colon and in the transverse colon. Recommended give GoLYTELY 500 cc per colon tube every 4 hours for 2 days and bisacodyl 5 mg p.o. b.i.d. continue to follow GI input and recommendation. Patient with a mild anasarca, Lasix increased to 20 mg IV q.8 hours, improved. Discussed with case management, reauthorization submitted for SNF placement. 09/08 No acute events overnight. Colon tube still in place, will follow up with GI regarding when to remove. Last reported BM yesterday. Pending SNF placement once cleared 09/09 Pt initially discharged however he was unable to transfer to chair and asked for placement to rehab. Case management to assist 09/10 no acute events overnight. Patient to continue with PT/OT. WBC uptrending, will start cefepime and order lactic acid. Potassium low at 3.2, will replete according to protocol. Continue rehab with PT/OT, pending placement 09/11 no acute events overnight. Patient febrile this morning with a T-max of a 101.5, yesterday she was started on cefepime, we will start doxycycline in order repeat blood cultures and urine cultures. influenza and covid panel will be ordered. 09/12 patient is seen and examined at bedside, comfortable in bed, alert oriented x3, tolerating full liquid diet. blood pressure 152/56. He had a temperature 101.5 09/11/2024 at 9:28 a.m.. He was started on cefepime and doxycycline. Serology test to include influenza, SARS antigen negative. Leukocytosis trending down, today 11.8, hemoglobin 8.6, hematocrit 26.6. Potassium 3.5, creatinine stable 2.3. Blood culture and urine culture in process. We will advance diet to GI soft diet. Case discussed with the RN, case management has reason admitted authorization to [facility]. Assessment/Plan: Final diagnosis Sepsis POA Acute kidney injury POA Recurrent fevers Kidney stone POA Hypertensive urgency POA Acute normocytic normochromic anemia POA Acute leukocytosis POA CHF POA Debility POA Diabetes POA Hyponatremia POA Dehydration POA Hyperlipidemia POA 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 Atrial fibrillation on chronic anticoagulation POA Sacral ulcer POA Abdominal distention, possible ileus versus concern for sigmoid volvulus Urinary retention with indwelling Griffin catheter in place PLAN: Patient remains admitted to the medical floor Repeat cultures ordered, will follow up Continue doxycycline, continue cefepime Continue full liquid diet advanced as tolerated Discussed with case management, reauthorization submitted for discharge plan to SNF Continue colon tube with lactulose infusions Continue eliquis 2.5mg BID Continue Furosemide 20mg TID Continue glargine 10U BID Contiunue sliding scale, wean as able Continue nifedipine 30mg BID Continue tamsulosin 0.4mg BID Continue metoprolol 100mg BID NEURO: Minimize central acting medications as possible. Fall Precautions. Well lighted room through the day and minimize interruptions through the night to prevent acute delirium. PULMONARY: Supplemental 02 as needed BiPAP as necessary, for respiratory distress Titrate Fio2 to keep Spo2 > or = 90% DuoNebs and CPT as needed IS hourly while awake for pulmonary hygiene prn Out of bed to chair as tolerated Maintain aspiration precautions at all times CARDIOVASCULAR: Follow hemodynamics. Vital signs per facility protocol GI & NUTRITION: Continue nutritional support Aspirations precautions Prokinetic agents and laxatives as needed KIDNEYS & ELECTROLYTES: Strict monitoring of intake and output Daily weights Avoid nephrotoxic agents Monitor electrolytes and replace as needed Goal urine output of 30mL/hr or 0.5mL/kg/hr Medications to be dosed according to renal function. Avoid contrast if possible ENDOCRINE: Maintain blood glucose between 100-180 at all times. Insulin sliding scale for blood glucose management Hypoglycemia and hyperglycemia protocol in place INFECTIOUS DISEASE: Trend temperature, WBC and procalcitonin level Follow cultures, deescalate antibiotics as soon as possible. Panculture if new onset fever HEMATOLOGY & COAGULATION: Monitor H&H. Keep Hgb > 7 Transfuse 1 unit of PRBC for Hgb < 7 Transfuse 1 pack of platelets of platelets < 20, 000 Watch for any signs and symptoms of bleeding SKIN: Pressure ulcer prevention per facility protocol Specialty mattress as needed ORTHO/REHAB Continue PT/OT PRN: MEDICATIONS Tylenol 650 mg po every 4 hrs for fever zofran 4 mg IV every 6 hrs for n/v Hydralazine 5 mg IV every 4 hrs systolic pressure > 160 bowel regiment: lactulose 20 gm PO BID PRN constipation Supportive measures: Continue GI and DVT prophylaxis Disposition: Pending improvement in clinical condition All questions answered time spent: > 35 min Discharge Instructions: Patient has been accepted to correction facility for continuation of medical care. Home Medications: Active Scripts Polyethylene Glycol 3350 (Miralax) 17 Gram Powd.pack, 1 PACKET PO DAILY for constipation, #30 PACKET 0 Refills dissolve in water Prov:AYDEE CARRANZA MD 09/09/24 Furosemide (Furosemide) 20 Mg Tablet, 1 TAB PO TID for 30 Days, #90 TAB 0 Refills Prov:AYDEE CARRANZA MD 09/09/24 Tamsulosin HCl (Flomax) 0.4 Mg Cap.er.24h, 0.4 MG PO BID, #60 CAPSULE.DR Prov:AYDEE CARRANZA MD 09/09/24 Nifedipine (Nifedipine ER) 30 Mg Tab.er.24, 30 MG PO BID, #60 TAB Prov:AYDEE CARRANZA MD 09/09/24 Hydralazine HCl (Apresoline) 25 Mg Tab, 50 MG PO TID, #90 TAB Prov:AYDEE CARRANZA MD 09/09/24 Nitroglycerin (Nitroglycerin) 0.4 Mg Tab.subl, 1 TAB SL AD for chest pain, #25 TAB 1 Refill 1st sign of attack; may repeat every 5 mins; if pain persists after 3 in 15 min, medical attention is recommended Prov:BRIANNA MENDEZ MD 04/14/24 Magnesium Oxide (Magnesium) 400 Mg Magnesium Capsule, 1 CAP PO DAILY for 30 Days, #30 CAP 1 Refill Prov:BRIANNA MENDEZ MD 04/14/24 Potassium Chloride (K-Dur/Klor-Con) 20 Meq Ertab, 1 TAB PO DAILY for 30 Days, #30 TAB 1 Refill Prov:BRIANNA MENDEZ MD 04/14/24 Glyburide (Glyburide) 2.5 Mg Tablet, 1 TAB PO DAILY for 30 Days, #30 TAB 1 Refill Prov:BRIANNA MENDEZ MD 04/14/24 [Folic Acid/Vitamin B Comp W-C] 1 CAP TAB No Conflict Check, 1 CAP PO DAILY for 30 Days, #30 1 Refill Prov:BRIANNA MENDEZ MD 04/14/24 Reported Medications Fluticasone Propionate (Flonase Nasal Sidell) 50 Mcg/Actuation Sidell, 1 SPRY EN BID 09/04/24 Olopatadine HCl (Olopatadine HCl) 0.1 % Drops, 1 DROP OU BID PRN for allergies 09/04/24 Loratadine (Loratadine) 10 Mg Tablet, 10 MG PO AM PRN for ITCHING, TAB 09/04/24 Mupirocin (Mupirocin Ointment) 2 % Oint, 1 APPL TP TID for 5 Days, #15 GM 0 Refills apply to affected area(s) 04/10/24 Metoprolol Tartrate (Metoprolol Tartrate) 100 Mg Tablet, 1 TAB PO BID for 30 Days, #60 TAB 0 Refills 04/10/24 Cholecalciferol (Vitamin D3) (Vitamin D3) 50 Mcg (2000 Unit) Capsule, 1 CAP PO DAILY for 30 Days, #30 CAP 0 Refills 04/10/24 Amlodipine Besylate (Amlodipine Besylate) 5 Mg Tablet, 1 TAB PO DAILY for 30 Days, #30 TAB 0 Refills 04/10/24 Trazodone HCl (Trazodone HCl) 50 Mg Tablet, 50 MG PO HS, TAB 03/10/24 Atorvastatin Calcium (LIPITOR) 40 Mg Tablet, 40 MG PO AM, TAB 03/10/24 Losartan Potassium (Losartan Potassium) 100 Mg Tablet, 100 MG PO AM, TAB 03/10/24 Apixaban (Eliquis) 5 Mg Tablet, 5 MG PO BID, TAB 08/14/17 Aspirin (ASPIRIN 81 MG ECTAB) 81 Mg Ectab, 81 MG PO DAILY, TAB.EC 01/27/15 Tamsulosin HCl (Tamsulosin HCl) 0.4 Mg Cap.er.24h, 0.4 MG PO PM, CAPSULE. 12/02/14 Discontinued Reported Medications Hydrochlorothiazide (Hydrochlorothiazide) 25 Mg Tablet, 25 MG PO AM, TAB 09/04/24 [Mag Ox] No Conflict Check 08/29/24 Hydrochlorothiazide (Hydrochlorothiazide) 25 Mg Tablet, 25 MG PO DAILY, TAB 08/14/17 Discontinued Scripts Hydralazine HCl (Apresoline) 25 Mg Tab, 25 MG PO TID for 30 Days, #90 TAB 1 Refill Prov:BRIANNA MENDEZ MD 04/14/24 Furosemide (Furosemide) 40 Mg Tablet, 1 TAB PO BID for 30 Days, #60 TAB 1 Refill Prov:BRIANNA MENDEZ MD 04/14/24 Time spent arranging discharge: 31-60 minutes BRIANNA MENDEZ MD Sep 13, 2024 12:04
--- NOTE | 2024-09-13 12:09 | PN ---
NEPHROLOGY PROGRESS NOTE Date/Time Patient Seen: Sep 13, 2024 SUBJECTIVE: This is an 78-year-old male who has had a prolonged hospital course. The patient initially admitted, found to have acute on chronic renal failure. The patient has coronary artery disease and volume overload. He remains on the diuretics. The patient with BPH, remains with Griffin in place and he is being seen as a followup visit for all of the above. The patient continues with underlying renal dysfunction. The patient's creatinine has remained fairly stable. He remains with a Griffin catheter in place and we will continue to follow closely. The patient is being seen by Case Management for final disposition, which will be in a halfway and we will follow closely. Pending discharge disposition later today REVIEW OF SYSTEMS: GENERAL: Negative for any nausea, vomiting, fevers, chills, or weight loss. NEUROLOGIC: Negative for any blurry vision, blind spots, double vision, facial asymmetry, dysphagia, dysarthria, hemiparesis, hemisensory deficits, vertigo, ataxia. HEENT: Negative for any head trauma, neck trauma, neck stiffness, photophobia, phonophobia, sinusitis, rhinitis. CARDIAC: Negative for any chest pain, dyspnea on exertion, paroxysmal nocturnal dyspnea, peripheral edema. PULMONARY: Negative for any shortness of breath, wheezing, COPD, or TB exposure. GASTROINTESTINAL: Negative for any abdominal pain, nausea, vomiting, bright red blood per rectum, melena. GENITOURINARY: Negative for any dysuria, hematuria, incontinence. INTEGUMENTARY: Negative for any rashes, cuts, insect bites. RHEUMATOLOGIC: Negative for any joint pains, photosensitive rashes, history of vasculitis or kidney problems. HEMATOLOGIC: Negative for any abnormal bruising, frequent infections or bleeding. Vital Signs (last 8hr) Date Time Temp Pulse Resp B/P (MAP) Pulse Ox O2 Delivery O2 Flow Rate FiO2 09/13/24 12:00 97.9 71 17 167/45 97 Room Air 09/13/24 08:00 98.4 66 18 122/59 98 Room Air PHYSICAL EXAM: GENERAL: Alert and oriented x 3. No acute distress. Well-nourished. EYES: EOMI. Anicteric. HENT: Moist mucous membranes. No scleral icterus. No cervical lymphadenopathy. LUNGS: Clear to auscultation bilaterally. No accessory muscle use. CARDIOVASCULAR: Regular rate and rhythm. No murmur. No JVD. ABDOMEN: Soft, non-tender and non-distended. No palpable masses. EXTREMITIES: No edema. Non-tender. SKIN: No rashes or lesions. Warm. NEUROLOGIC: No focal neurological deficits. CN II-XII grossly intact, but not individually tested. PSYCHIATRIC: Cooperative. Appropriate mood and affect. Current Medications Medications (Trade) Dose Ordered Sig/Abhijit Route Start Time Stop Time Status Last Admin Dose Admin Acetylcysteine (MUComyst 10% 4ML) 400mg = 4ml [id number] IH 09/03/24 00:00 09/05/24 13:40 DC 09/05/24 11:08 400 MG Albuterol (DUOneb) 1 udvial BIDRESP 09/05/24 18:00 09/25/24 01:59 Albuterol (DUOneb) 1 udvial [id number] IH 08/26/24 02:00 09/05/24 10:01 DC 09/05/24 06:28 1 UDVIAL Albuterol (DUOneb) 1 udvial [id number] IH 09/05/24 12:00 09/05/24 13:40 DC 09/05/24 11:07 1 UDVIAL Amlodipine Besylate (NorvASC 5MG TAB) 5 mg DAILY PO 08/27/24 09:00 08/27/24 07:12 DC Apixaban (EliquIS 2.5 mg) 2.5 mg BID PO 09/02/24 21:00 09/03/24 14:24 DC 09/02/24 21:38 2.5 MG Apixaban (EliquIS 2.5 mg) 2.5 mg BID PO 09/05/24 21:00 10/05/24 20:59 09/13/24 08:16 2.5 MG Apixaban (EliquIS) 5 mg BID PO 09/01/24 21:00 09/02/24 16:46 DC 09/02/24 08:56 5 MG Apixaban (EliquIS) 5 mg BID PO 09/03/24 21:00 09/03/24 14:19 DC Bisacodyl (DulcoLAX 5MG TAB) 5 mg BID PO 09/05/24 21:00 10/05/24 20:59 09/13/24 08:15 5 MG Budesonide (Pulmicort 0.5 Mg/2ml) 0.5 mg BIDRESP IH 08/26/24 18:00 09/05/24 13:42 DC 09/05/24 06:28 0.5 MG Cefepime HCl (MAXipime 2 gm vial) 2 gm Q12H IVPB 08/26/24 10:00 08/29/24 07:19 DC 08/28/24 23:16 2 GM Cefepime HCl (MAXipime 2 gm vial) 2 gm Q24H IVPB 09/10/24 06:30 09/20/24 06:29 09/13/24 05:54 2 GM Ceftriaxone Sodium 1 gm/ Sodium Chloride 50 ml @ 100 mls/hr BID IV 08/26/24 09:00 08/26/24 01:51 DC Ceftriaxone Sodium (ROCEphine 1G INJ) 1 gm BID IVPB 08/26/24 09:00 08/26/24 09:43 DC 08/26/24 09:15 1 GM Doxycycline Hyclate 250 ml @ 125 mls/hr Q12H IV 09/11/24 14:30 09/21/24 14:29 09/13/24 02:50 125 MLS/HR Epoetin Eros-epbx (Retacrit) 10,000 unit QTU@1600 SQ 09/02/24 16:00 10/02/24 15:59 09/09/24 18:37 10,000 UNIT Furosemide (LASix 20MG TAB) 20 mg BID PO 09/02/24 21:00 09/02/24 17:14 DC Furosemide (LASix 20MG TAB) 20 mg BID@09,17 PO 09/03/24 17:00 09/05/24 11:36 DC 09/05/24 10:02 20 MG Furosemide (LASix 20MG VIAL) 20 mg Q8H IV 09/05/24 12:00 10/05/24 11:59 09/13/24 04:07 20 MG Heparin Sodium (Porcine) (HEParin 5,000 UNIT VIAL) 5,000 unit Q12H SQ 08/26/24 21:30 09/01/24 09:57 DC 09/01/24 09:03 5,000 UNIT Hydralazine HCl ([id number] TAB) 25 mg TID PO 08/26/24 09:00 08/27/24 07:12 DC 08/26/24 21:08 25 MG Hydralazine HCl ([id number] TAB) 50 mg TID PO 08/28/24 09:00 08/28/24 11:31 DC Hydralazine HCl ([id number] TAB) 50 mg TID PO 08/28/24 14:00 09/27/24 13:59 09/13/24 08:16 50 MG Hydralazine HCl ([id number] TAB) 100 mg TID PO 08/27/24 09:00 08/28/24 07:38 DC 08/27/24 09:22 100 MG Hydrochlorothiazide (hydroCHLOROthiazide 25MG) 25 mg DAILY PO 08/29/24 09:00 08/28/24 12:07 DC Insulin Glargine (LANtus 100 UNITS/ML 10 ML VIAL) 10 units BID@0730,2100 SQ 08/29/24 07:30 09/28/24 07:29 09/13/24 07:08 10 UNITS Insulin Human Regular (humuLIN R 100 UNIT/ML 3ML) INSULIN SLIDING SCAL... ACHS SQ 08/26/24 07:30 09/25/24 07:29 09/12/24 20:13 4 UNIT Losartan Potassium (CozAAR 50 mg TAB) 50 mg BID PO 08/27/24 09:00 08/31/24 10:00 DC 08/31/24 09:46 50 MG Magnesium Sulfate 50 ml @ 0 mls/hr PROTOCOL IV 09/13/24 10:00 09/13/24 09:44 DC Magnesium Sulfate 50 ml @ 0 mls/hr PROTOCOL IV 09/06/24 09:30 10/06/24 09:29 09/10/24 09:01 25 MLS/HR Methylprednisolone Sodium Succinate (Solu-medROL 40MG) 20 mg Q8H IVP 08/29/24 06:00 08/31/24 12:05 DC 08/31/24 06:33 20 MG Methylprednisolone Sodium Succinate (Solu-medROL 40MG) 40 mg BID IVP 08/27/24 21:00 08/28/24 20:59 DC 08/28/24 09:24 40 MG Metoprolol Tartrate (loprESSOR) 100 mg BID PO 08/26/24 09:00 09/25/24 08:59 09/13/24 08:16 100 MG Montelukast Sodium (SinguLAIR) 10 mg DAILY PO 08/27/24 09:00 09/26/24 08:59 09/13/24 08:16 10 MG Nifedipine (adALAT 30MG) 30 mg BID PO 08/28/24 09:00 09/27/24 08:59 09/13/24 08:16 30 MG Nifedipine (adALAT 30MG) 60 mg BID PO 08/27/24 09:00 08/28/24 07:38 DC 08/27/24 07:42 60 MG Nystatin (NystOP 15 GM POWDER) 1 APPLICATION BID TP 09/05/24 21:00 10/05/24 20:59 09/13/24 08:16 1 APPL Pantoprazole Sodium (PROTonix 40MG INJ) 40 mg DAILY IVP 08/27/24 09:00 09/26/24 08:59 09/13/24 08:15 40 MG Polyethylene Glycol/ Electrolytes (Golytely/Colyte Soln) 4,000 ml ONCE PO 09/05/24 12:30 09/05/24 13:30 DC 09/05/24 13:52 4,000 ML Sodium Bicarbonate (Sodium Bicarbonate) 650 mg TID PO 08/28/24 14:00 09/03/24 09:15 DC 09/02/24 21:37 650 MG Sodium Chloride 1,000 ml @ 50 mls/hr Q20H IV 08/26/24 21:00 08/27/24 13:59 DC 08/26/24 21:08 50 MLS/HR Tamsulosin HCl (FloMAX) 0.4 mg BID PO 08/26/24 21:00 09/25/24 20:59 09/13/24 08:16 0.4 MG Vancomycin HCl 250 ml @ 125 mls/hr Q24H IV 08/27/24 12:00 08/29/24 07:19 DC 08/28/24 11:27 125 MLS/HR Vancomycin HCl (Vancomycin Protocol) 1 each AD IV 08/26/24 10:00 08/29/24 07:19 DC Vitamin B Complex/ Vit C/Folic Acid (Nephrovite Tablet) 1 cap DAILY PO 08/26/24 09:00 09/25/24 08:59 09/13/24 08:16 1 CAP Wound Care/ Dressing Products (Venelex Ointment) 1 APPL TID TP 08/26/24 21:00 09/25/24 20:59 09/13/24 08:16 1 GM LABORATORY: [ ] Hematology Labs: Test 09/13/24 03:47 09/12/24 03:43 Range/Units White Blood Count 7.9 4.8-10.8 K/uL Red Blood Count 2.86 L 4.50-6.20 MIL/uL Hemoglobin 8.5 L 14.0-18.0 g/dL Hematocrit 25.5 L 42-54 % Mean Corpuscular Volume 89.2 79-99 fL Mean Corpuscular Hemoglobin 29.7 27.0-33.0 pg Mean Corpuscular Hemoglobin Concent 33.3 32.0-36.0 g/dL Red Cell Distribution Width 13.9 11.0-15.5 % Platelet Count 242 130-400 K/uL Mean Platelet Volume 10.2 7.5-10.5 fL Nucleated Red Blood Cells 0.0 0.0-0.19 % Immature Granulocyte % (Auto) 0.5 0-1 % Neutrophils (%) (Auto) 79.4 H 40.0-77.0 % Lymphocytes (%) (Auto) 9.9 L 21.0-51.0 % Monocytes (%) (Auto) 9.0 3.0-13.0 % Eosinophils (%) (Auto) 0.9 0.0-8.0 % Basophils (%) (Auto) 0.3 0.0-5.0 % Neutrophils # (Auto) 9.4 H 1.8-7.7 K/uL Lymphocytes # (Auto) 1.2 1.0-4.8 K/uL Monocytes # (Auto) 1.1 H 0.1-1.0 K/uL Eosinophils # (Auto) 0.11 0.00-0.70 K/uL Basophils # (Auto) 0.03 0.00-0.20 K/uL Absolute Immature Granulocyte (auto 0.06 0-1 K/uL Chemistry Labs: Test 09/13/24 11:17 09/13/24 03:47 Range/Units Whole Blood Glucose 166 #H 70-110 MG/DL Sodium Level 132 L 136-145 mmol/L Potassium Level 3.1 L 3.5-5.1 mmol/L Chloride Level 100 L 101-111 mmol/L Carbon Dioxide Level 22 21-32 mmol/L Blood Urea Nitrogen 50 H 7-18 mg/dL Creatinine 2.1 H 0.5-1.3 mg/dL Glomerular Filtration Rate Calc 31 >90 mL/min Random Glucose 105 70-105 mg/dL Total Calcium 8.3 L 8.5-10.1 mg/dL Magnesium Level 1.80 1.80-2.40 mg/dL Total Bilirubin 0.4 0.2-1.0 mg/dL Aspartate Amino Transf (AST/SGOT) 21 10-37 U/L Alanine Aminotransferase (ALT/SGPT) 31 12-78 U/L Alkaline Phosphatase 60 50-136 U/L Total Protein 5.8 L 6.0-8.3 g/dL Albumin 2.0 L 3.5-5.0 g/dL DIAGNOSTICS / RADIOLOGY: REASON: fever, shortness of breath ORDERING PHYSICIAN: ADYEE CARRANZA MD PROCEDURE: CXR1VW - CHEST 1VW Exam Type: CHEST 1VW Clinical Information: fever, shortness of breath Comparison: None Findings: There is cardiomegaly and there is status post median sternotomy. The lungs are clear of infiltrates. Left-sided cardiac pacemaker is noted with leads in place. Impression: Clear lungs. DICTATED BY: JEAN MARIE CROOK MD DATE: 09/11/24 1502 REASON: rule out ileus versus obstruction ORDERING PHYSICIAN: BRIANNA MENDEZ MD PROCEDURE: ABD PEL WO - CT ABDOMEN/PELVIS W/O CONTRAST CT ABDOMEN/PELVIS W/O CONTRAST REASON: rule out ileus versus obstruction COMPARISON: 08/25/2024 FINDINGS: There are small bilateral pleural effusions. Lung bases are otherwise clear. Liver, spleen, pancreas and gallbladder appear normal. There is bilateral renal cortical thinning. There is a nonobstructing 7 mm calculus in the right kidney which is unchanged. There is no evidence of mass or hydronephrosis. There are air-filled mildly dilated loops of colon. Small bowel gas pattern appears normal. There is no transition zone to suggest obstruction. Findings appear most consistent with a component of ileus.. The appendix was not separately identified. There is no evidence of free fluid or intraperitoneal air. There are no focal fluid collections. Aorta and retroperitoneum appear normal as do pelvic soft tissue structures. The anterior abdominal wall is intact. Osseous structures appear unremarkable. IMPRESSION: 1. Mildly dilated air-filled loops of colon, no transition zone, findings most consistent with gastroenteritis or ileus. 2. No transition zone to suggest obstruction. 3. Moderate bilateral renal cortical thinning 4. Minimal bilateral pleural effusions. CT was performed with one or more following dose reduction techniques: automated exposure control, adjustment of the mA and kv according to patient's size, or use of a iterative reconstruction technique. DICTATED BY: MANI RAMSEY MD DATE: 09/01/24 1835 REASON: sob, evaluate for infiltrates ORDERING PHYSICIAN: AYDEE ACRRANZA MD PROCEDURE: CXR1VW - CHEST 1VW CHEST 1VW HISTORY: Shortness of breath COMPARISON: 08/28/2024 FINDINGS: A frontal projection of the chest was obtained. No acute pulmonary infiltrates is seen. Poststernotomy changes are seen. The heart is enlarged. Degenerative changes of the thoracolumbar spine are present. Pacemaker is seen entering from the left. No evidence of aortic calcification is seen. IMPRESSION: 1. No acute pulmonary infiltrate is seen. DICTATED BY: BEATRICE TSANG MD DATE: 08/30/24 0753 REASON: SOB ORDERING PHYSICIAN: JORGE VILLANUEVA PROCEDURE: CXR1VW - CHEST 1VW CHEST 1VW HISTORY: Shortness of breath COMPARISON: 08/25/2024 FINDINGS: A frontal projection of the chest was obtained. No acute pulmonary infiltrates is seen. The heart is enlarged. Pacemaker is seen entering from the left. No evidence of aortic calcification is seen. IMPRESSION: 1. No acute pulmonary infiltrate is seen. DICTATED BY: BEATRICE TSANG MD DATE: 08/28/24 1223 REASON: alexy ORDERING PHYSICIAN: JORGE VILLANUEVA PROCEDURE: RENAL - US RENAL SONOGRAM Exam Type: US RENAL SONOGRAM Clinical Information: alexy Comparison: None Findings: The kidneys are hyperechoic consistent with renal parenchymal disease. There are no calculi. No hydronephrosis or calculi are seen. No renal masses are seen. There is no evidence of perinephric fluid on either side. No evidence of significant ureteral dilatation is seen. The right kidney measures 9.3 x 3.7 cm. The left kidney measures 10.1 x 4.6 cm. The urinary bladder is normal. No bladder masses, stones, or wall thickening is seen. IMPRESSION: Hyperechoic kidneys consistent with renal parenchymal disease. DICTATED BY: JEAN MARIE CROOK MD DATE: 08/26/24 3200 REASON: R/O CHF ORDERING PHYSICIAN: AYDEE CARRANZA MD PROCEDURE: ECHO CMP - ECHO 2-D COMPLETE APPROVED REPORT EXAM: Two-dimensional and M-mode echocardiogram with Doppler and color Doppler. INDICATION ICD: Rule out congestive heart failure 2D Dimensions RVDd 4.3 cm LVEF(%) 51.5 (>50%) LVED Vol(simp.) 136.0 mL IVSd 1.2 (0.7-1.1cm) FS(%) 27 % LVES Vol(simp.) 66.0 mL LVDd 5.3 (3.8-5.6cm) LA (2D) 3.7 (1.6-4.0cm) LVEF(%, simp.) 51 % PWd 1.6 (0.7-1.1cm) Ao Root(2D) 3.6 (2.0-3.7cm) LA ESV INDEX (BP) 36.65 mL/m2 IVSs 1.4 cm LVOT diam 2.5 (1.8-2.4cm) LVDs 3.9 (2.5-4.0cm) PWs 1.7 cm Deformation Strain Apical 4 -4.4 % Apical 2 -8.8 % Apical 3 -9.0 % Global Strain -7.4 % M-Mode Dimensions EPSS 1.2 cm LA (MM) 4.2 (1.6-4.0cm) Ao Root(MM) 4.1 (2.0-3.7cm) Aortic Valve AoV Vmax 1.6 m/s Ao Peak GR 10.3 mmHg LVOT Vmax 0.8 m/s AoV VTI 0.3 m Ao Mean GR 6.0 mmHg LVOT VTI 0.18 m DIONICIO (VMAX) 2.53 cm2 DIONICIO (VTI) 2.6 cm2 Mitral Valve MV E Vmax 97.2 cm/s DECEL Time 230 ms MV A Vmax 68.4 cm/s P 1/2 T 52 ms E/A ratio 1.4 MVA (PHT) 4.2 cm2 TDI E/E' Medial 19.6 E/E' Lateral 17.7 Medial E' Peak V 4.97 cm/s Lateral E' Peak V 5.50 cm/s Pulmonary Valve PV Vmax 0.9 m/s PV VTI 0.16 m PV Mean GR 1.8 mmHg PV Peak GR 3.1 mmHg Tricuspid Valve TR Vmax 2.8 m/s RAP (EST) 8 mmHg RVSP 39.2 mmHg TR Peak GR 31.2 mmHg Left Ventricle The left ventricle is normal size. There is normal LV segmental wall motion. There is mild left ventricular wall thickness. LVEF is 50-55%. The LV diastolic function was unable to be assessed due to atrial arrhythmia. Right Ventricle The right ventricle is normal size. The right ventricular systolic function is normal. Atria The left atrium is mildly dilated. The right atrium is mildly dilated. Aortic Valve Aortic valve is trileaflet and opens well. Mild annular calcification noted. No aortic regurgitation is present. There is no aortic valvular stenosis. Mitral Valve Mitral valve leaflets open well. Mild posterior annular calcification noted. There is trace of mitral valve regurgitation noted. There is no mitral valve stenosis. Tricuspid Valve The tricuspid valve is normal in structure. There is no tricuspid valve regurgitation noted. Pulmonic Valve Pulmonic valve is not well visualized. There is no pulmonic valvular regurgitation. Great Vessels The aortic root is normal in size. IVC is not well visualized. Pericardium There is no pericardial effusion. Other Information Quality : Technically difficult study due to body habitus Conclusion The left ventricle is normal size. LVEF is 50-55% with normal LV segmental wall motion. There is mild left ventricular wall thickness. The LV diastolic function was unable to be assessed due to atrial arrhythmia. The right ventricular systolic function is normal. The left atrium is mildly dilated. No hemodynamically significant valvular abnormalities. There is no pericardial effusion. DICTATED BY: VIPIN GOODMAN MD DATE: 08/26/24 1404 REASON: fever ORDERING PHYSICIAN: EFRAIN DAVIS MD PROCEDURE: ABD PEL WO - CT ABDOMEN/PELVIS W/O CONTRAST Exam Type: CT ABDOMEN/PELVIS W/O CONTRAST Clinical Information: fever Comparison: None CT Dose Index (CTDI): 10.20 mGy Dose Length Product (DLP): 530.00 total mGy-cm PROTOCOL: Routine noncontrast helical scanning of the abdomen and pelvis was performed at 5mm collimation. Findings: No hydronephrosis or ureteral dilatation is seen. Both kidneys demonstrate simple cysts and atrophy. Renal vascular calcifications are seen bilaterally. Right renal nonobstructing calculus mid pole, 7 mm. The lung bases are clear. Cardiomegaly. Status post median sternotomy. Coronary arterial calcifications of the [place] coronary arteries. The stomach is unremarkable. It shows no wall thickening. No gross ulceration is seen. It is not overly distended. There are no surrounding inflammatory changes. No wall lesions are identified to suggest cancer. The spleen is unremarkable. It is not enlarged. The pancreas shows normal anatomy. It is not fatty replaced. It shows no lesions. The pancreatic duct is not dilated. The gallbladder is unremarkable. It shows no cholelithiasis. The gallbladder wall is normal in thickness. There is no pericholecystic fluid. The is no acute or chronic inflammation noted. The adrenal glands are unremarkable. There is no enlargement. No lesions are noted. The liver is unremarkable. It shows no focal masses. The appendix is unremarkable. It shows no evidence of inflammation. No appendicolith is seen. The small bowel is unremarkable. There is no evidence of dilatation to suggest obstruction. No evidence of adynamic ileus is seen. There is no small bowel wall thickening to suggest enteritis. The colon is unremarkable. The urinary bladder is unremarkable. There is no wall thickening to suggest tumor or inflammation. There are no intraluminal calculi. There are no diverticula. There is no evidence of chronic bladder outlet obstruction. There is no evidence of urinary bladder distention to suggest urinary retention. The other pelvic structures are unremarkable. The bony and vascular structures are unremarkable for the patient's age. IMPRESSION: Right nephrolithiasis, other findings as described. This study was performed using dose reduction techniques to include automated exposure control and/or adjustment of the mA and/or kV according to patient size. DICTATED BY: JEAN MARIE CROOK MD DATE: 08/26/24825 REASON: fever ORDERING PHYSICIAN: EFRAIN DAVIS MD PROCEDURE: CXR1VW - CHEST 1VW Exam Type: CHEST 1VW Clinical Information: fever Comparison: None Findings: The lungs are clear of infiltrates. The heart is enlarged in size. The bony and soft tissue structures of the chest are unremarkable. Left cardiac pacemaker is noted with leads in place. Impression: Clear lungs. DICTATED BY: JEAN MARIE CROOK MD DATE: 08/26/24 0903 ASSESSMENT: Sepsis POA Possible pyelonephritis POA Acute kidney injury POA Kidney stone POA Hypertensive urgency POA Acute normocytic normochromic anemia POA Acute leukocytosis POA CHF POA Debility POA Diabetes POA Hyponatremia POA Dehydration POA Hyperlipidemia POA 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 Atrial fibrillation on chronic anticoagulation POA Sacral ulcer POA PLAN: Labs, diagnostic, radiologic exams reviewed and interpreted by myself and supervising physician. We have reviewed external records in detail Pending discharge disposition later tonight BiPAP as necessary, for respiratory distress Monitor blood pressure adjust medication doses as needed Avoid hypotensive episodes May use Dilaudid 0.5 mg IV every 6 hours as needed for severe pain Monitor blood sugars Strict intake, output, and daily weight should be monitored Please renally adjust medications Avoid nephrotoxic and nonsteroidal drugs Avoid contrast if possible Will continue to monitor renal function, anemia, electrolytes Treatment plan discussed with patient Questions were answered We have discussed with the other team physicians in detail about the care plan We will continue to monitor the patient closely ATTESTATION BY PHYSICIAN I have seen and examined the patient. I reviewed the documentation, medical decision making, and treatment plan as noted by the mid-level provider above. I agree with the findings and plan of care. MATTHIEU PARHAM MD, [facility] Sep 13, 2024 12:09
--- NOTE | 2024-09-13 17:30 | NUR ---
PATIENT DISCHARGED TO [facility] BAND REMOVED. DISCHARGE INSTRUCTIONS EXPLAINED AND GIVEN TO PATIENT. PATIENT VERBALIZED UNDERSTANDING. BELONGINGS PACKED AND TAKEN BY PATIENT. TRANSFERRED VIA STRETCH[facility] TO AMBULANCE.
== END 2024-09-13 17:31 | DRG 871 ==
LOC: EDH 21:09 → EDHIP 08-26 00:46 → 2CV 08-27 04:20 → 3DH 08-27 15:50
PROVIDERS: ADMIT Internal Medicine; ATTEND Internal Medicine
PROC: 0D9N80Z Drainage of Sigmoid Colon with Drainage Device, Via Natural or Artificial Opening Endoscopic (ICD-10-PCS; principal; 2024-09-05)
DX: A41.9 Sepsis, unspecified organism (principal); I50.31 Acute diastolic (congestive) heart failure; K56.2 Volvulus; E87.1 Hypo-osmolality and hyponatremia; I13.0 Hypertensive heart and chronic kidney disease with heart failure and stage 1 through stage 4 chronic kidney disease, or unspecified chronic kidney disease; N17.9 Acute kidney failure, unspecified; N12 Tubulo-interstitial nephritis, not specified as acute or chronic; E87.20 Acidosis, unspecified; I48.20 Chronic atrial fibrillation, unspecified; I42.9 Cardiomyopathy, unspecified; K56.7 Ileus, unspecified; N13.8 Other obstructive and reflux uropathy; L98.428 Non-pressure chronic ulcer of back with other specified severity; K59.39 Other megacolon; E86.0 Dehydration; E78.00 Pure hypercholesterolemia, unspecified; D64.9 Anemia, unspecified; E11.22 Type 2 diabetes mellitus with diabetic chronic kidney disease; N18.30 Chronic kidney disease, stage 3 unspecified; Z66 Do not resuscitate; I16.0 Hypertensive urgency; I25.10 Atherosclerotic heart disease of native coronary artery without angina pectoris; L89.150 Pressure ulcer of sacral region, unstageable; N20.0 Calculus of kidney; G20.A1 Parkinson's disease without dyskinesia, without mention of fluctuations; J11.1 Influenza due to unidentified influenza virus with other respiratory manifestations; Z96.643 Presence of artificial hip joint, bilateral; N40.1 Benign prostatic hyperplasia with lower urinary tract symptoms; Z79.01 Long term (current) use of anticoagulants; Z95.1 Presence of aortocoronary bypass graft; Z95.810 Presence of automatic (implantable) cardiac defibrillator; R41.0 Disorientation, unspecified
CPT/HCPCS: 36415; 36600; 45393; 71045; 74018; 74176; 76770; 80048; 80053; 81001; 82140; 82306; 82435; 82550; 82570; 82607; 82728; 82803; 82947; 82948; 83540; 83550; 83605; 83735; 83880; 83970; 84100; 84132; 84145; 84295; 84300; 84443; 84484; 84550; 85018; 85025; 85027; 85610; 85730; 87040; 87086; 87186; 87426; 87635; 87804; 87880; 93005; 93306; 93356; 94640; 94664; 94760; 96365; 99285; A4344; G0378; J0360; J0692; J0696; J1644; J1815; J1938; J1940; J2003; J2270; J2470; J2704; J2919; J3370; J3475; J3480; J3490; J7030; J7050; J7070; J7120; J7608; A4215; A4222; A4223; A4620; Q5106

== ENCOUNTER 2024-10-04 02:12 | Emergency (ER) | payer OTHER ==
[~2024-10-04] VITALS: Ht 182.9 cm; Wt 117.9 kg
[~2024-10-04 02:12] MED LIST changes: +FLUT16H EN; +FURO20TA4 PO; -FURO40TA5 PO; -HYDR25TA PO; +LORA10TA7 PO; +NIFE-40 PO; +OLOP5DRO26 OU; +POLY17PO4 PO; +TAMS-55 PO
[2024-10-04 02:16] VITALS: TEMP 98.7
[2024-10-04] MEDS: ORPHENADRINE 60MG/2ML IM ONE (03:03)
[2024-10-04] MEDS: TRIAMCINOLONE ACETONIDE 40 MG/ML 1ML VIAL IM ONE (03:04)
[2024-10-04] MEDS: LACTATED RINGERS 1000ML IV STA (03:04)
[2024-10-04 03:07] LABS: IMMATURE GRANULOCYTE ABSOLUTE 0.08 K/uL (0-1); NUCLEATED RED BLOOD CELLS 0.0 % (0.0-0.19); PLATELET COUNT (AUTO) 258 K/uL (130-400); RED BLOOD CELL COUNT(AUTO) 3.22 MIL/uL (4.50-6.20); RED CELL DISTRIBUTION WIDTH 14.5 % (11.0-15.5); WHITE BLOOD COUNT (AUTO) 9.1 K/uL (4.8-10.8)
--- NOTE | 2024-10-04 03:12 | ERN ---
General Chief Complaint: Neck Pain Stated Complaint: INTERMITTENT NECK PAIN X 2-3 DAYS Time Seen by MD: 02:16 Source: patient History of Present Illness Initial Comments Patient is an 79-year-old male with a chief complaint of neck pain for the last 2-3 days. He can not turn his head to the left. He feels like a knife is being stuck into his neck. This is the 1st time he has had these symptoms. No other associated symptoms like fevers chills upper respiratory tract infection changes with his GI tract or his urination. Patient's past medical history includes a CABG 10 years ago and bilateral pedal edema that seems to increase in decrease over time. He also states that he used to drink a lot when he was younger. Timing/Duration: 1 week Allergies: Coded Allergies: tramadol (Unverified Allergy, Unknown, 09/28/17) Home Meds Active Scripts Polyethylene Glycol 3350 (Miralax) 17 Gram Powd.pack, 1 PACKET PO DAILY for constipation, #30 PACKET 0 Refills dissolve in water Prov:AYDEE CARRANZA MD 09/09/24 Furosemide (Furosemide) 20 Mg Tablet, 1 TAB PO TID for 30 Days, #90 TAB 0 Refills Prov:AYDEE CARRANZA MD 09/09/24 Tamsulosin HCl (Flomax) 0.4 Mg Cap.er.24h, 0.4 MG PO BID, #60 CAPSULE.DR Prov:AYDEE CARRANZA MD 09/09/24 Nifedipine (Nifedipine ER) 30 Mg Tab.er.24, 30 MG PO BID, #60 TAB Prov:AYDEE CARRANZA MD 09/09/24 Hydralazine HCl (Apresoline) 25 Mg Tab, 50 MG PO TID, #90 TAB Prov:AYDEE CARRANZA MD 09/09/24 Nitroglycerin (Nitroglycerin) 0.4 Mg Tab.subl, 1 TAB SL AD for chest pain, #25 TAB 1 Refill 1st sign of attack; may repeat every 5 mins; if pain persists after 3 in 15 min, medical attention is recommended Prov:BRIANNA MENDEZ MD 04/14/24 Magnesium Oxide (Magnesium) 400 Mg Magnesium Capsule, 1 CAP PO DAILY for 30 Days, #30 CAP 1 Refill Prov:BRIANNA MENDEZ MD 04/14/24 Potassium Chloride (K-Dur/Klor-Con) 20 Meq Ertab, 1 TAB PO DAILY for 30 Days, #30 TAB 1 Refill Prov:BRIANNA MENDEZ MD 04/14/24 Glyburide (Glyburide) 2.5 Mg Tablet, 1 TAB PO DAILY for 30 Days, #30 TAB 1 Refill Prov:BRIANNA MENDEZ MD 04/14/24 [Folic Acid/Vitamin B Comp W-C] 1 CAP TAB No Conflict Check, 1 CAP PO DAILY for 30 Days, #30 1 Refill Prov:BRIANNA MENDEZ MD 04/14/24 Reported Medications Fluticasone Propionate (Flonase Nasal [place]) 50 Mcg/Actuation [place], 1 SPRY EN BID 09/04/24 Olopatadine HCl (Olopatadine HCl) 0.1 % Drops, 1 DROP OU BID PRN for allergies 09/04/24 Loratadine (Loratadine) 10 Mg Tablet, 10 MG PO AM PRN for ITCHING, TAB 09/04/24 Mupirocin (Mupirocin Ointment) 2 % Oint, 1 APPL TP TID for 5 Days, #15 GM 0 Refills apply to affected area(s) 04/10/24 Metoprolol Tartrate (Metoprolol Tartrate) 100 Mg Tablet, 1 TAB PO BID for 30 Days, #60 TAB 0 Refills 04/10/24 Cholecalciferol (Vitamin D3) (Vitamin D3) 50 Mcg (2000 Unit) Capsule, 1 CAP PO DAILY for 30 Days, #30 CAP 0 Refills 04/10/24 Amlodipine Besylate (Amlodipine Besylate) 5 Mg Tablet, 1 TAB PO DAILY for 30 Days, #30 TAB 0 Refills 04/10/24 Trazodone HCl (Trazodone HCl) 50 Mg Tablet, 50 MG PO HS, TAB 03/10/24 Atorvastatin Calcium (LIPITOR) 40 Mg Tablet, 40 MG PO AM, TAB 03/10/24 Losartan Potassium (Losartan Potassium) 100 Mg Tablet, 100 MG PO AM, TAB 03/10/24 Apixaban (Eliquis) 5 Mg Tablet, 5 MG PO BID, TAB 08/14/17 Aspirin (ASPIRIN 81 MG ECTAB) 81 Mg Ectab, 81 MG PO DAILY, TAB.EC 01/27/15 Tamsulosin HCl (Tamsulosin HCl) 0.4 Mg Cap.er.24h, 0.4 MG PO PM, CAPSULE. 12/02/14 Past Medical History Past Medical History: CHF, Diabetes-Type II, High Cholesterol, Heart Disease, Hypertension Past Surgical History: CABG, Pacer/AICD Surgical History Other: hip surgery Social History Social History: Other (Chews tobacco) Constitutional: (-) chills, (-) diaphoresis, (-) fever, (-) malaise, (-) weakness, (-) other documentation EENTM: (-) eye pain, (-) blurred vision, (-) tearing, (-) double vision, (-) ear pain, (-) ear discharge, (-) nose pain, (-) nose congestion, (-) throat pain, (-) Throat swelling, (-) mouth pain, (-) tooth pain, (-) mouth swelling, (-) other documentation Respiratory: (-) cough, (-) orthopnea, (-) short of breath, (-) stridor, (-) wheezing, (-) other documentation Cardiovascular: (-) chest pain, (-) edema, (-) palpitations, (-) syncope, (-) dyspnea on exertion, (-) other documentation Physical Exam General Appearance: (+) no apparent distress Orientation: (+) alert Head/Face Trauma: No Eye: bilateral eye normal inspection, bilateral eye PERRL, bilateral eye EOMI Ear, Nose, Throat: (+) normal ENT inspection Ear, Nose, Throat Comment Hard of hearing Neck: (+) normal inspection, (+) tender lateral Respiratory: (+) chest non-tender, (+) lungs clear Heart: (+) regular Vascular: (+) edema Gastrointestinal: (+) soft, (+) non-tender, (+) bowel sound present Results Laboratory and Microbiology Lab and Micro Result Laboratory Tests Test 10/04/24 02:50 White Blood Count 9.1 K/uL (4.8-10.8) Red Blood Count 3.22 MIL/uL (4.50-6.20) L Hemoglobin 9.5 g/dL (14.0-18.0) L Hematocrit 30.3 % (42-54) L Mean Corpuscular Volume 94.1 fL (79-99) Mean Corpuscular Hemoglobin 29.5 pg (27.0-33.0) Mean Corpuscular Hemoglobin Concent 31.4 g/dL (32.0-36.0) L Red Cell Distribution Width 14.5 % (11.0-15.5) Platelet Count 258 K/uL (130-400) Mean Platelet Volume 10.1 fL (7.5-10.5) Immature Granulocyte % (Auto) 0.9 % (0-1) Neutrophils (%) (Auto) 66.5 % (40.0-77.0) Lymphocytes (%) (Auto) 20.2 % (21.0-51.0) L Monocytes (%) (Auto) 9.2 % (3.0-13.0) Eosinophils (%) (Auto) 2.4 % (0.0-8.0) Basophils (%) (Auto) 0.8 % (0.0-5.0) Neutrophils # (Auto) 6.1 K/uL (1.8-7.7) Lymphocytes # (Auto) 1.8 K/uL (1.0-4.8) Monocytes # (Auto) 0.8 K/uL (0.1-1.0) Eosinophils # (Auto) 0.22 K/uL (0.00-0.70) Basophils # (Auto) 0.07 K/uL (0.00-0.20) Absolute Immature Granulocyte (auto 0.08 K/uL (0-1) Nucleated Red Blood Cells 0.0 % (0.0-0.19) Sodium Level 143 mmol/L (136-145) Potassium Level 5.2 mmol/L (3.5-5.1) H Chloride Level 108 mmol/L (101-111) Carbon Dioxide Level 24 mmol/L (21-32) Blood Urea Nitrogen 35 mg/dL (7-18) H Creatinine 1.7 mg/dL (0.5-1.3) H Glomerular Filtration Rate Calc 40 mL/min (>90) Random Glucose 139 mg/dL (70-105) H Total Calcium 8.9 mg/dL (8.5-10.1) Total Bilirubin 0.2 mg/dL (0.2-1.0) Direct Bilirubin 0.1 mg/dL (0.0-0.3) Aspartate Amino Transf (AST/SGOT) 18 U/L (10-37) Alanine Aminotransferase (ALT/SGPT) 36 U/L (12-78) Alkaline Phosphatase 75 U/L (50-136) Troponin I High Sensitivity 23 ng/L (4-75) B-Type Natriuretic Peptide 312 pg/mL (0-100) H Total Protein 6.5 g/dL (6.0-8.3) Albumin 2.8 g/dL (3.5-5.0) L MDM MDM: Differential diagnosis: The immediate cause of the patient's neck pain could be dehydration, fibromyalgia, muscle spasm, electrolyte abnormalities, spinal stenosis. I am additionally concerned about the state of his overall health with his cardiac history and his bilateral pedal edema I will include a cardiac workup as well today. Rationale: Tests considered and ordered secondary to shared decision making include: Previous outside records reviewed: Old ER visits. Risk of complication and/or morbidity or mortality of patient management: None Medications-Per medication reconciliation Need for hospitalization: Patient does meet criteria for hospitalization. Need for emergency major/minor surgery: No There are no social concerns with this patient. Prescription drug management Prescriptions will include symptomatic care Patient's prior external medical records from other ER visits were reviewed by me as indicated. Prior testing and results from previous visits were reviewed. Prior tests were taken into account with medical decision making and resource utilization, independent historian/historians were used to obtain complete medical history. I independently interpreted the test that were performed, results were reviewed by me and considered findings on radiology if ordered. Patient's neck pain did not improve with steroid injections or muscle relaxants or fluids. It did not improve with Toradol either. His blood pressure when he came in his systolic 200 with our hydralazine and clonidine I was able to get it down to systolic of 140 that this did not improve his neck pain nor his headache. I got a CT scan of his cervical spine and it shows severe degenerative changes in his highly suggestive of spinal stenosis. I explained this to the patient I will prescribe him meloxicam and recommend that he follow-up with his family practice doctor to get an MRI and consult for a spinal surgeon. ED Course Orders Procedure Category Date Status Time Lactated Ringers PHA 10/04/24 Complete 1000ml (Lactated 02:28 Ketorolac PHA 10/04/24 Complete Tromethamine 30mg/Ml 02:30 Triamcinolone Acet PHA 10/04/24 Complete 40mg/Ml 1ml (Kenalog 02:30 Orphenadrine Citrate PHA 10/04/24 Complete (Norflex) 02:30 Clonidine Hcl 0.2 Mg PHA 10/04/24 Complete Tablet (Catapres 0. 02:30 12 Lead Ekg Tracing- EKG 10/04/24 Complete Technical 02:28 Basic Metabolic Panel LAB 10/04/24 Complete 02:28 Cbc With Differential LAB 10/04/24 Complete 02:28 Troponin I High LAB 10/04/24 Complete Sensitivity 02:28 B-Type Natriuretic LAB 10/04/24 Complete Peptide 02:28 Chest 1vw RAD 10/04/24 Resulted 03:08 Hepatic Function Panel LAB 10/04/24 Complete 03:12 Initiate MARCELLE 10/04/24 In Process Hyperglycemia Protoco 03:55 Hydralazine 20mg Inj PHA 10/04/24 Complete (Apresoline 20mg In 04:00 Ct Cervical Spine W/O CT 10/04/24 Resulted Contrast 04:44 Current Medications Medications (Trade) Dose Ordered Sig/Abhijit Route PRN Reason Start Time Stop Time Status Last Admin Dose Admin Clonidine HCl (CATApres 0.2 MG TAB) 0.2 mg ONCE ONCE PO 10/04/24 02:30 10/04/24 02:32 DC 10/04/24 03:03 Hydralazine HCl (APRESOLine 20MG INJ) 20 mg ONCE ONCE IV 10/04/24 04:00 10/04/24 04:06 DC 10/04/24 04:14 Ketorolac Tromethamine (toRADol) 30 mg ONCE ONCE IVP 10/04/24 02:30 10/04/24 02:32 DC 10/04/24 03:03 Lactated Ringer's (Lactated Ringers 1000ml) 1,000 ml BOLUS STAT IV 10/04/24 02:28 10/04/24 02:32 DC 10/04/24 03:04 Orphenadrine Citrate (Norflex) 60 mg ONCE ONCE IM 10/04/24 02:30 10/04/24 02:32 DC 10/04/24 03:03 Triamcinolone Acetonide (Kenalog 40) 40 mg ONCE ONCE IM 10/04/24 02:30 10/04/24 02:32 DC 10/04/24 03:04 Vital Signs Date Time Temp Pulse Resp B/P (MAP) Pulse Ox O2 Delivery O2 Flow Rate FiO2 10/04/24 05:08 70 16 153/64 98 Room Air* 0 10/04/24 03:03 84 189/80 10/04/24 02:24 71 16 200/81 99 Room Air* 0 10/04/24 02:16 98.8 108 18 164/50 99 Room Air 0 DX & DISP Disposition: Discharge Departure Impression: Primary Impression: Spinal stenosis in cervical region Condition: Stable Scripts Meloxicam, Submicronized (Meloxicam) 10 Mg Capsule 10 MG PO DAILY PRN for PAIN LEVEL 6 TO 10 for 30 Days, #30 CAP Prov: JANELLE CORONADO MD 10/04/24 Additional Instructions: You have severe spinal stenosis in your neck and I think that is causing your knife-like pain in your neck. I have written a prescription for some pain medications that will help. You need to follow up with her primary care physician to get a neurosurgeon to examine you and obtain an MRI. The MRI will indicate whether or not you need surgery for the pain you are suffering from. Referrals: JOSE LUIS RIDER (PCP) JANELLE CORONADO MD Oct 04, 2024 03:12
[2024-10-04 03:15] LABS: CREATININE 1.7 mg/dL (0.5-1.3); GLOMERULAR FILTR. RATE CALC 40.0 mL/min (>90); GLUCOSE,RANDOM 139.0 mg/dL (70-105); SODIUM SERUM 143.0 mmol/L (136-145); UREA NITROGEN, BLOOD 35.0 mg/dL (7-18)
--- NOTE | 2024-10-04 03:16 | EKG ---
[facility] Test Date: 2024-10-04 Test Time: 03:12:50 Pat Name: JEANINE VILLALTA Department: ED Room: Gender: M Hand Tier: [phone] : 1945 Requested By: JANELLE CORONADO Order Number: [id number] Reading MD: Freddie Elmore Measurements Intervals Cisco Rate: 72 P: 0 OK: 69 QRS: -77 QRSD: 194 T: 91 QT: 480 QTc: 524 Interpretive Statements Ventricular-paced rhythm Compared to ECG 08/26/2024 03:32:08 No significant changes Electronically Signed On 10-04-2024 10:52:55 CDT by Freddie Elmore Please click the below link to view image of tracing.
[2024-10-04 03:50] LABS: ASPARTATE AMINOTRANSFERASE 18.0 U/L (10-37); TOTAL PROTEIN, SERUM 6.5 g/dL (6.0-8.3)
--- NOTE | 2024-10-04 04:12 | HMCIMG ---
EXAM: CR Chest, 1 view CLINICAL HISTORY: Pedal edema. COMPARISON: Chest radiograph dated 09/11/2024. FINDINGS: The bilateral CP angles are excluded from the image. Questionable small pleural effusion and lower zone airspace disease on the left side. Mild COPD. Stable cardiac size. No pneumothorax. No acute osseous abnormality. IMPRESSION: Questionable small pleural effusion and lower zone airspace disease on the left side. Mild COPD. No gross interval changes. /[place]
--- NOTE | 2024-10-04 05:52 | HMCIMG ---
EXAM: CT Cervical Spine Without IV Contrast CLINICAL HISTORY: Pain. TECHNIQUE: Thin collimated axial CT images of the cervical spine were obtained with sagittal and coronal reformatted images also submitted. CT scan done according to ALARA (As Low As Reasonably Achievable). CONTRAST: None. COMPARISON: None provided. FINDINGS: No acute fracture. Normal vertebral body height. Straightening of the expected cervical lordosis, reflecting paraspinal muscle spasm. Moderate to severe spondylosis is evident, characterized by marginal osteophytes, Schmorl???s nodes, and facet arthropathy at multiple levels. Degenerative reduction in disc height at multiple levels, most pronounced at C5-C6. 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 Mild left neural foraminal narrowing at C2-C3 secondary to facet hypertrophy. Severe left and moderate right neural foraminal narrowing at C3-C4 with mild spinal canal stenosis. Severe right and moderate left neural foraminal narrowing at C4-C5 with mild spinal canal stenosis. Severe bilateral neural foraminal and lateral recess narrowing with possible impingement on the bilateral exiting C6 and traversing C7 nerve roots, moderate spinal canal stenosis, and possible cervical cord impingement at C5-C6. Mild bilateral neural foraminal narrowing at C6-C7, more pronounced on the left side. No spinal canal stenosis. The included lungs are clear. Scattered atherosclerotic vascular calcifications. No focal soft tissue abnormality is evident in the neck. IMPRESSION: No acute fracture. Moderate to severe multilevel cervical spondylosis, most pronounced at C5-C6. /[place]
[2024-10-04] MEDS ORDERED: MELO10CA3 PO (05:59)
--- NOTE | 2024-10-04 06:10 | NUR ---
SPOKE WITH PT'S DAUGHTER, ERICA LEE. DAUGHTER WILL COME DIE SINKER APPRENTICE THE PATIENT IN ABOUT AN HOUR.
[2024-10-04 06:11] VITALS: BP 158/62; PULSE 73; RESP 16; O2SAT 98
== END 2024-10-04 07:02 | disposition home or self-care (01) ==
LOC: EDH 02:12
DX: M48.02 Spinal stenosis, cervical region (principal); E11.9 Type 2 diabetes mellitus without complications; E78.00 Pure hypercholesterolemia, unspecified; I11.0 Hypertensive heart disease with heart failure; I50.9 Heart failure, unspecified; Z72.0 Tobacco use; Z79.01 Long term (current) use of anticoagulants; Z79.82 Long term (current) use of aspirin; Z79.84 Long term (current) use of oral hypoglycemic drugs; Z88.5 Allergy status to narcotic agent; Z79.899 Other long term (current) drug therapy; Z95.1 Presence of aortocoronary bypass graft; Z95.810 Presence of automatic (implantable) cardiac defibrillator
CPT/HCPCS: 99285; 96374; 72125; 71045; 96375; 80076; 84484; 80048; 83880; 85025; 36415; 96372 ×2; 93005; J1885; J7120; J0360; J3301; J2360